=== PATIENT | male | born 1930 | race Caucasian/White ===

== ENCOUNTER → 2016-09-09 | Outpatient (CLI) | payer OTHER, BC ==
[~2016-09-09] MED LIST: ACET-1256 PO; ALUMSUS21 PO; ASTN; ATRINSX INH; ATRINSX NEB; BENZ100C7 PO; BENZ100C84 PO; BISA-16 PO; CALC-20 PO; CLOP1TAB15 PO; CLR10 PO; DIGO0.1219 PO; DXY100 PO; FINA5TAB PO; FLUN0.02 NAE; GFNSR600 PO; GUAI1TAB75 PO; HYT/2 PO; LCTX PO; LEVA1.255 INH; LEVA1.255 NEB; LEVA45AE INH; LVQ500 PO; MISCTAB29 PO; MONT1TAB3 PO; MULT-506 PO; OXGN; PANT40TA PO; PERFLUTREN LIPID MICROSPHERE (DEFINITY) IV ONE; POLY335019 PO; POTA10CA28 PO; PRED10TA PO; PRED20TA PO; PRS5 PO; PRT/20 PO; PRT/40 PO; RANI150T2 PO; SPRIN/30 INH; SYMIN160 INH; TIOTCAP INH; VERA180C3 PO; XPNIN INH; XPNINS125 INH; ZNTT/150 PO
--- NOTE | 2016-09-09 17:16 | ECHOCARDIOGRAM REPORT ---
*NOTICE TO RECEIVING REPUBLICAN AGENCY This information is strictly Confidential and protected under [place] law. [place] law prohibits you from making any further disclosure of this information unless further disclosure is expressly permitted by the written consent of the person to whom it pertains or is authorized by law. A general authorization for the release of medical or other information is not sufficient for this purpose. Hospital accepts no responsibility if the information is made available to any other person, INCLUDING THE PATIENT. Interpretation Summary * Name: HAYLEY HOLLOWAY Study Date: 09/09/2016 01:57 PM BP: 130/81 mmHg * Patient Location: [facility] HR: 95 * : 1930 (M/d/yyyy) Gender: Male Height: 76 in * Age: 85 yrs Ethnicity: CA Weight: 216 lb * Ordering Physician: Dashawn Martinez * Performed By: Brynn Schwab * * Reason For Study: HYPOXIA * BSA: 2.3 m2 * -- Conclusions -- * 1. Normal LV size, mild concentric LVH. * 2. Normal LV systolic function. LVEF 60-65%. Abnormal septal motion consistent with conduction abnormality. * 3. Normal RV size and function. * 4. Mild aortic sclerosis without stenosis. * 5. Compared with prior study on 11/07/2015: No significant changes. Procedure Details * A complete two-dimensional transthoracic echocardiogram was performed (2D, M-mode, Doppler and color flow Doppler). * The study was technically difficult. * There were technical limitations due to patient'sPoor acoustic windows secondary to severe lung disease. * A contrast injection of Definity was performed to improve assessment of LV function. * Contrast was injected into an intravenous site in the left arm. * One vial of Definity ultrasound contrast was diluted in normal saline to a total volume of 10 ml. A total of '3' ml of solution was administered during imaging. * Lot # [id number] of Definity utilized for procedure. * Expiration date 02/22. * The attending nurse who injected the contrast agent was DESHAWN CHRISTOPHER RN. Left Ventricle * The left ventricle is grossly normal size. * There is mild concentric left ventricular hypertrophy. * Ejection Fraction = 60-65%. * Septal motion is consistent with conduction abnormality. Right Ventricle * The right ventricle is grossly normal size. * The right ventricular systolic function is normal as assessed by tricuspid annular plane systolic excursion (TAPSE) (normal >1.5 cm). Atria * The left atrial size is normal. * Right atrial size is normal. Mitral Valve * The mitral valve is grossly normal. * There is no mitral valve stenosis. * There is trace mitral regurgitation. Tricuspid Valve * The tricuspid valve is not well visualized. * There is no tricuspid stenosis. * No tricuspid regurgitation. Aortic Valve * Aortic valve sclerosis mild, without significant aortic valvular stenosis. * No hemodynamically significant valvular aortic stenosis. * There is no significant aortic regurgitation. Pulmonic Valve * The pulmonic valve is not well visualized. Great Vessels * The aortic root and proximal ascending aorta are normal sized. Pericardium/Pleural * There is no pericardial effusion. Great Vessels * IVC > 2.1 cm, > 50% change with respiration. Estimated RA 8mmHg MMode 2D Measurements and Calculations IVSd 1.4 cm IVSs 1.7 cm LVIDd 4.1 cm LVIDs 2.4 cm LVPWd 1.3 cm LVPWs 1.8 cm IVS/LVPW 1.1 FS 41.3 % EDV(Teich) 74.5 ml ESV(Teich) 20.4 ml EF(Teich) 72.6 % EDV(cubed) 69.3 ml ESV(cubed) 14.0 ml EF(cubed) 79.8 % % IVS thick 21.8 % % LVPW thick 38.9 % LV mass(C)d 200.2 grams LV mass(C)dI 87.5 grams/m\S\2 LV mass(C)s 156.5 grams LV mass(C)sI 68.4 grams/m\S\2 SV(Teich) 54.1 ml SI(Teich) 23.6 ml/m\S\2 SV(cubed) 55.3 ml SI(cubed) 24.1 ml/m\S\2 ACS 1.0 cm asc Aorta Diam 3.2 cm LVOT diam 2.0 cm LVOT area 3.3 cm\S\2 LVAd ap4 41.6 cm\S\2 LVLd ap4 9.0 cm EDV(MOD-sp4) 155.2 ml EDV(sp4-el) 162.9 ml LVAs ap4 19.3 cm\S\2 LVLs ap4 7.4 cm ESV(MOD-sp4) 40.1 ml ESV(sp4-el) 42.4 ml EF(MOD-sp4) 74.2 % EF(sp4-el) 74.0 % LVAd ap2 38.8 cm\S\2 LVLd ap2 9.6 cm EDV(MOD-sp2) 126.0 ml EDV(sp2-el) 133.1 ml LVAs ap2 15.6 cm\S\2 LVLs ap2 6.7 cm ESV(MOD-sp2) 29.5 ml ESV(sp2-el) 30.9 ml EF(MOD-sp2) 76.6 % EF(sp2-el) 76.8 % LVLd %diff 6.2 % EDV(MOD-bp) 143.3 ml LVLs %diff -11.43 % ESV(MOD-bp) 36.3 ml EF(MOD-bp) 74.7 % SV(MOD-sp4) 115.1 ml SI(MOD-sp4) 50.3 ml/m\S\2 SV(MOD-sp2) 96.5 ml SI(MOD-sp2) 42.2 ml/m\S\2 SV(MOD-bp) 107.0 ml SI(MOD-bp) 46.7 ml/m\S\2 SV(sp4-el) 120.5 ml SI(sp4-el) 52.6 ml/m\S\2 SV(sp2-el) 102.3 ml SI(sp2-el) 44.7 ml/m\S\2 Doppler Measurements and Calculations MV E max viktoria 114.6 cm/sec MV dec time 0.18 sec Ao V2 max 198.5 cm/sec Ao max PG 15.8 mmHg Ao max PG (full) 7.9 mmHg Ao V2 mean 134.7 cm/sec Ao mean PG 8.7 mmHg Ao mean PG (full) 5.6 mmHg Ao V2 VTI 42.4 cm DESTINY(I,A) 1.9 cm\S\2 DESTINY(I,D) 1.9 cm\S\2 DESTINY(V,A) 2.3 cm\S\2 DESTINY(V,D) 2.3 cm\S\2 LV V1 max PG 7.9 mmHg LV V1 mean PG 3.1 mmHg LV V1 max 140.7 cm/sec LV V1 mean 77.2 cm/sec LV V1 VTI 25.0 cm MR max viktoria 273.3 cm/sec MR max PG 29.9 mmHg SV(LVOT) 81.7 ml SI(LVOT) 35.7 ml/m\S\2 PA V2 max 106.2 cm/sec PA max PG 4.5 mmHg
== END | disposition home or self-care (01) ==
LOC: C.CPL 12:39
PROVIDERS: ATTEND Internal Medicine Critical Care Medicine
DX: R09.02 Hypoxemia (principal); I70.0 Atherosclerosis of aorta

== ENCOUNTER → 2016-09-11 | Outpatient (CLI) | payer OTHER, BC ==
[~2016-09-11] MED LIST changes: -PERFLUTREN LIPID MICROSPHERE (DEFINITY) IV ONE
--- NOTE | 2016-09-11 11:44 | DIAGNOSTIC IMAGING REPORT ---
CHEST 2 VIEWS ROUTINE CLINICAL HISTORY: PNEUMONIA COMPARISON STUDY: 07/14/2016 FINDINGS: There is evidence for pulmonary emphysema. There are surgical clips the right axillary region. There is a left subclavian dual-chamber central venous pacemaker. There is persistent interstitial thickening. The previously identified right apical opacity is no longer visualized. No pleural effusions are visualized.[ IMPRESSION: 1. Emphysema 2. Stable interstitial thickening 3. No evidence of acute parenchymal consolidation 4. The previously queried right apical opacity is not visualized the current study Electronically signed by: Myles Carbone M.D. 09/11/2016 11:42 AM
== END | disposition home or self-care (01) ==
LOC: C.RADBBURG 10:35
PROVIDERS: ATTEND Internal Medicine Pulmonary Disease
DX: J18.9 Pneumonia, unspecified organism (principal)

== ENCOUNTER 2016-10-03 18:15 | Emergency (ER) | payer OTHER, BC ==
[~2016-10-03] VITALS: Ht 195.6 cm; Wt 100.3 kg
[~2016-10-03 18:15] MED LIST changes: -ACET-1256 PO; -ALUMSUS21 PO; -ASTN; -ATRINSX NEB; -BENZ100C84 PO; -BISA-16 PO; -CALC-20 PO; -CLOP1TAB15 PO; -CLR10 PO; -DIGO0.1219 PO; -FINA5TAB PO; -GUAI1TAB75 PO; -HYT/2 PO; -LCTX PO; -LEVA1.255 NEB; -LEVA45AE INH; -LVQ500 PO; -MISCTAB29 PO; -MONT1TAB3 PO; -MULT-506 PO; -OXGN; -POLY335019 PO; -POTA10CA28 PO; -PRED10TA PO; -PRED20TA PO; -PRT/20 PO; -PRT/40 PO; -RANI150T2 PO; -SPRIN/30 INH; -SYMIN160 INH; -VERA180C3 PO; -XPNINS125 INH
[2016-10-03 18:21] VITALS: TEMP 36.6; Ht 195.6 cm; Wt 100.3 kg
[2016-10-03] MEDS ORDERED: OXYMETAZOLINE HCL 0.05% NA SPR 15 ML BTL ONE (18:32)
[2016-10-03] MEDS ORDERED: METHYLPREDNISOLONE 125 MG VIAL IV STA (18:35)
--- NOTE | 2016-10-03 18:37 | EMERGENCY ROOM VISIT NOTE ---
History Report prepared by Tina: Dharmesh Sampson Under the Supervision of: Dr. Bj Baird M.D. First contact with patient: 18:25 Chief Complaint: CONGESTION Stated Complaint: COUGH, CLOGGED NOSE CANT BREATHE History of Present Illness The patient is an 85 year old male who presents to the Emergency Room with complaints of persistent nasal congestion that started this morning. He says he had pneumonia back in July, and ever since then he has been using 4 liters of oxygen at home. The patient was using it 24 hours a day until a few weeks ago. He is now only on the oxygen at night. The patient has also been using nebulizer treatments daily. He has been off of Prednisone for 2 weeks. This morning, the patient started getting congested, and he says his nose "swelled shut tight" so that the oxygen could not get through. He also has a bit of a cough. The patient has asthma, and takes daily medications for that. Source of History: patient Onset: This morning Position: nose (nasal congestion) Timing: other (persistent) Associated Symptoms: + cough Note: Associated symptoms: Nose "swelled shut tight". Review of Systems See HPI for pertinent positives & negatives. A total of 10 systems reviewed and were otherwise negative. Past Medical & Surgical Medical Problems: (1) Asthma, moderate persistent (2) Benign prostatic hyperplasia (3) BPH (benign prostatic hypertrophy) (4) CKD (chronic kidney disease) stage 3, GFR 30-59 ml/min (5) GERD (gastroesophageal reflux disease) (6) Heart block (7) Irritable Bowel Syndrome (8) Pacemaker (9) Paroxysmal a-fib (10) PMR (polymyalgia rheumatica) (11) Respiratory failure, acute (12) Transient ischemic attack Surgical Problems: (1) H/O nasal polypectomy (2) S/P cholecystectomy (3) Status post surgical removal of malignant neoplasm of skin Family History Cancer Social History Smoking Status: Never Smoker Alcohol Use: none Drug Use: none Marital Status: Housing Status: lives with family Occupation Status: retired Current/Historical Medications Scheduled Budesonide/Formoterol Fumarate (Symbicort 160/4.5 Inhaler), 2 PUFFS INH BID Calcium Carbonate-Vitamin D (Calcium 600 + D), 1 TAB PO BID Clopidogrel (Plavix), 75 MG PO DAILY Finasteride (Proscar), 5 MG PO DAILY Flunisolide (Nasal) (Flunisolide), 2 SPRY MARVIN BID Loratadine (Claritin), 10 MG PO DAILY Misc Natural Products (Osteo Bi-Flex Advanced Tr), 1 TAB PO BID Montelukast Sodium (Singulair), 10 MG PO QPM Multivitamin (Multivitamin), 1 TAB PO DAILY Pantoprazole (Protonix), 40 MG PO BID Potassium Chloride (Micro-K Ext Rel), 10 MEQ PO DAILY Prednisone (Prednisone), 40 MG PO DAILY Terazosin Hcl (Hytrin), 2 MG PO HS Tiotropium Meadow (Spiriva Handihaler), 1 CAP INH DAILY Verapamil Hcl (Verapamil Hcl Sr), 180 MG PO DAILY Scheduled PRN Acetaminophen (Tylenol), 1,000 MG PO Q4 PRN for Pain Aluminum Hydroxide-Mag Carb (Gaviscon), 5 ML PO TID PRN for ACID REFLUX Benzonatate (Tessalon Perles), 100 MG PO TID PRN for Cough Ipratropium Meadow (Atrovent 0.02% Soln), 2.5 ML INH TID PRN for SOB/Wheezing Levalbuterol (Levalbuterol HCl), 1.25 MG INH Q6 PRN for SOB/Wheezing Levalbuterol Tartrate (Levalbuterol Tartrate Hfa), 2 PUFF INH TID PRN for SOB/ Wheezing Levalbuterol Tartrate (Levalbuterol Tartrate Hfa), 2 PUFF INH Q8 PRN for Wheezing Polyethylene Glycol 3350 (Miralax), 17 GM PO DAILY PRN for Constipation Allergies Coded Allergies: Aspirin (Verified Allergy, Severe, TIGHTNESS IN CHEST, 05/21/16) NSAIDs (Verified Allergy, Severe, TIGHTNESS IN THE CHEST, 05/21/16) Rofecoxib (Verified Allergy, Severe, TIGHTNESS IN CHEST, 05/21/16) Physical Exam Vital Signs Date Time Temp Pulse Resp B/P Pulse Ox O2 Delivery O2 Flow Rate FiO2 10/03/16 20:45 74 24 125/76 96 10/03/16 18:54 94 Nasal Cannula 4.0 10/03/16 18:29 93 Nasal Cannula 4.0 10/03/16 18:21 36.6 72 22 127/72 89 Nasal Cannula 4.0 Physical Exam CONSTITUTIONAL: No acute distress on 4 liters nasal cannula. HEENT: No icterus, moist mucous membranes NECK: No meningismus, trachea is midline. CARDIOVASCULAR: Regular rate, normal perfusion RESPIRATORY: Moderate wheezes throughout. GASTROINTESTINAL: Non-tender GENITOURINARY: No flank tenderness MUSCULOSKELETAL: Full range of motion NEUROLOGIC: No acute gross focal deficits. PSYCHIATRIC: Normal affect SKIN: Normal for ethnicity. Medical Decision & Procedures ER Provider Diagnostic Interpretation: X-ray results as stated below per interpretation by me and the radiologist. CHEST ONE VIEW PORTABLE CLINICAL HISTORY: wheezing, nasal congestion COMPARISON STUDY: 09/11/2016 FINDINGS: The heart remains mildly enlarged. There is a left subclavian dual-chamber central venous pacemaker present. There are surgical clips in the right axillary region. There are diffuse bilateral interstitial opacities, similar to the prior study. There is no significant pleural fluid.[ IMPRESSION: Diffuse bilateral pulmonary interstitial opacities similar to the preceding study. Underlying chronic interstitial lung disease is suspected. Electronically signed by: Myles Carbone M.D. 10/03/2016 7:09 PM Dictated Date/Time: 10/03/2016 7:07 PM Laboratory Results 10/03/16 18:45 Red Blood Count 4.44, Mean Corpuscular Volume 89.9, Mean Corpuscular Hemoglobin 30.9, Mean Corpuscular Hemoglobin Concent 34.3, Mean Platelet Volume 9.9, Neutrophils (%) (Auto) 45.0, Lymphocytes (%) (Auto) 32.5, Monocytes (%) (Auto) 11.2, Eosinophils (%) (Auto) 10.7, Basophils (%) (Auto) 0.3, Neutrophils # (Auto ) 2.82, Lymphocytes # (Auto) 2.04, Monocytes # (Auto) 0.70, Eosinophils # (Auto ) 0.67, Basophils # (Auto) 0.02 10/03/16 18:45 Test 10/03/16 18:41 10/03/16 18:45 Influenza Type A Antigen Neg for Influ A (NEG) Influenza Type B Antigen Neg for Influ B (NEG) White Blood Count 6.27 K/uL (4.8-10.8) Red Blood Count 4.44 M/uL (4.7-6.1) Hemoglobin 13.7 g/dL (14.0-18.0) Hematocrit 39.9 % (42-52) Mean Corpuscular Volume 89.9 fL (80-100) Mean Corpuscular Hemoglobin 30.9 pg (25-34) Mean Corpuscular Hemoglobin Concent 34.3 g/dl (32-36) Platelet Count 178 K/uL (130-400) Mean Platelet Volume 9.9 fL (7.4-10.4) Neutrophils (%) (Auto) 45.0 % Lymphocytes (%) (Auto) 32.5 % Monocytes (%) (Auto) 11.2 % Eosinophils (%) (Auto) 10.7 % Basophils (%) (Auto) 0.3 % Neutrophils # (Auto) 2.82 K/uL (1.4-6.5) Lymphocytes # (Auto) 2.04 K/uL (1.2-3.4) Monocytes # (Auto) 0.70 K/uL (0.11-0.59) Eosinophils # (Auto) 0.67 K/uL (0-0.5) Basophils # (Auto) 0.02 K/uL (0-0.2) RDW Standard Deviation 45.0 fL (36.4-46.3) RDW Coefficient of Variation 13.6 % (11.5-14.5) Immature Granulocyte % (Auto) 0.3 % Immature Granulocyte # (Auto) 0.02 K/uL (0.00-0.02) Anion Gap 8.0 mmol/L (3-11) Est Creatinine Clear Calc Drug Dose 52.4 ml/min Estimated GFR () 57.7 Estimated GFR (Non- 49.8 BUN/Creatinine Ratio 15.9 (10-20) Calcium Level 8.8 mg/dl (8.5-10.1) Labs reviewed by ED physician. Medications Administered Medications (Trade) Dose Ordered Sig/Akash Route Start Time Stop Time Status Last Admin Dose Admin Oxymetazoline HCl (Afrin 0.05% Nasal Denair) 75 sprays STK-MED ONCE .ROUTE 10/03/16 18:32 10/03/16 18:33 DC 10/03/16 18:37 75 SPRAYS Albuterol/ Ipratropium (Duoneb) 6 ml QIDR INH 10/03/16 20:00 10/03/16 20:56 DC 10/03/16 19:16 6 ML Methylprednisolone Sodium Succinate (Solu-Medrol IV) 125 mg NOW STAT IV 10/03/16 18:35 10/03/16 18:38 DC 10/03/16 18:56 125 MG ECG Indication: other (congestion) Rate (beats per minute): 76 Rhythm: other (AV-paced) Findings: other (nonspecific-ST findings) ED Course 1828: Past medical records reviewed. The patient was evaluated in room A9B. A complete history and physical examination was performed. 1834: Ordered Solu-Medrol IV 125 mg IV. 1956: I reevaluated the patient and he is doing better and wants to go home. The patient verbally expressed understanding and agreement of the treatment plan. The patient will be discharged. 1999: Ordered Duoneb 6 ml INH. Medical Decision Differential diagnoses include: viral syndrome, wheezing. 85-year-old with long-standing history of asthma on 3 L home oxygen after a pneumonia in July 2016 presents to the emergency room with acute onset of upper respiratory nasal congestion over the last day with increasing O2 demand this as he cannot get his oxygen through his nose. Moderate wheezing in all mcknight on exam. Given site Medrol 125 mg IV, albuterol nebulizer treatment and Afrin nasal mist with dramatic improvement in symptomatology. Patient would like to go home on reexamination at 8 PM and has no further complaints. Prescription prednisone written and patient will continue to use the Afrin provided him in the emergency room Impression Primary Impression: Viral upper respiratory illness Scribe Attestation The scribe's documentation has been prepared under my direction and personally reviewed by me in its entirety. I confirm that the note above accurately reflects all work, treatment, procedures, and medical decision making performed by me. Departure Information Dispostion Home / Self-Care Prescriptions Prednisone (Prednisone) 20 Mg Tab 40 MG PO DAILY for 4 Days, #8 TAB Prov: Bj Baird MD 10/03/16 Referrals No Doctor, Assigned (PCP) Dionte Banda D.OLincoln Forms HOME CARE DOCUMENTATION FORM, IMPORTANT VISIT INFORMATION Patient Instructions ED Viral Syndrome, My [facility]
[2016-10-03 18:54] VITALS: O2SAT 94
[2016-10-03 19:01] LABS: BASO % 0.3 %; BASO ABS # 0.02 K/uL (0-0.2); COMPLETE YES; EOS % 10.7 %; HEMATOCRIT 39.9 % (42-52); IG% 0.3 %; LYMPH % 32.5 %; LYMPH ABS # 2.04 K/uL (1.2-3.4); MEAN CELL VOLUME 89.9 fL (80-100); MEAN CORPUSCULAR HEMOGLOBIN 30.9 pg (25-34); MEAN CORPUSCULAR HGB CONC 34.3 g/dl (32-36); MEAN PLATELET VOLUME 9.9 fL (7.4-10.4); MONO % 11.2 %; PLATELET COUNT 178 K/uL (130-400); RED BLOOD COUNT 4.44 M/uL (4.7-6.1); WHITE BLOOD COUNT 6.27 K/uL (4.8-10.8)
--- NOTE | 2016-10-03 19:10 | DIAGNOSTIC IMAGING REPORT ---
CHEST ONE VIEW PORTABLE CLINICAL HISTORY: wheezing, nasal congestion COMPARISON STUDY: 09/11/2016 FINDINGS: The heart remains mildly enlarged. There is a left subclavian dual-chamber central venous pacemaker present. There are surgical clips in the right axillary region. There are diffuse bilateral interstitial opacities, similar to the prior study. There is no significant pleural fluid.[ IMPRESSION: Diffuse bilateral pulmonary interstitial opacities similar to the preceding study. Underlying chronic interstitial lung disease is suspected. Electronically signed by: Myles Carbone M.D. 10/03/2016 7:09 PM Dictated Date/Time: 10/03/2016 7:07 PM
[2016-10-03 19:18] LABS: BUN/CREATININE RATIO 15.9 (10-20); CALCIUM 8.8 mg/dl (8.5-10.1); CREATININE 1.3 mg/dl (0.60-1.40)
[2016-10-03] MEDS ORDERED: XPNINS125 INH (19:38)
[2016-10-03] MEDS ORDERED: LEVA45AE INH (19:38)
[2016-10-03] MEDS ORDERED: BENZ100C84 PO (19:38)
[2016-10-03] MEDS ORDERED: ALBUT/IPRATROP 3MG/0.5MG NEB 3 ML VIAL INH SCH (20:00)
[2016-10-03] MEDS ORDERED: PRED20TA PO (20:03)
[2016-10-03 20:45] VITALS: BP 125/76; PULSE 74; O2SAT 96
[2016-10-23] MEDS ORDERED: LVQ500 PO (15:07)
[2016-12-01] MEDS ORDERED: HYT/2 PO (02:43)
[2016-12-01] MEDS ORDERED: VERA180C3 PO (02:58)
[2016-12-01] MEDS ORDERED: MULT-506 PO (03:13)
[2016-12-01] MEDS ORDERED: POLY335019 PO (10:29)
[2016-12-01] MEDS ORDERED: POTA10CA28 PO (10:34)
[2016-12-01] MEDS ORDERED: SYMIN160 INH (10:37)
[2016-12-01] MEDS ORDERED: MONT1TAB3 PO (10:37)
[2016-12-01] MEDS ORDERED: MISCTAB29 PO (10:40)
[2016-12-01] MEDS ORDERED: CALC-20 PO (10:40)
[2016-12-01] MEDS ORDERED: ACET-1256 PO (10:43)
[2016-12-01] MEDS ORDERED: CLOP1TAB15 PO (13:51)
[2016-12-01] MEDS ORDERED: RANI150T2 PO (16:14)
[2016-12-01] MEDS ORDERED: PRT/40 PO (16:14)
[2016-12-01] MEDS ORDERED: ATRINSX NEB (16:26)
[2016-12-01] MEDS ORDERED: LEVA1.255 NEB (16:26)
[2016-12-01] MEDS ORDERED: FINA5TAB PO (18:57)
[2016-12-01] MEDS ORDERED: SPRIN/30 INH (18:57)
[2016-12-01] MEDS ORDERED: LEVA45AE INH (18:58)
[2016-12-01] MEDS ORDERED: ALUMSUS21 PO (19:38)
[2016-12-03] MEDS ORDERED: LVQ500 PO (14:42)
[2016-12-03] MEDS ORDERED: PRED10TA PO (14:47)
== END 2016-10-03 20:46 | disposition home or self-care (01) ==
LOC: C.EDB 18:16 → C.EDA 20:46
DX: J06.9 Acute upper respiratory infection, unspecified (principal); J45.909 Unspecified asthma, uncomplicated; K21.9 Gastro-esophageal reflux disease without esophagitis; N18.3 Chronic kidney disease, stage 3 (moderate); I45.9 Conduction disorder, unspecified; K58.9 Irritable bowel syndrome, unspecified; Z95.0 Presence of cardiac pacemaker; Z86.73 Personal history of transient ischemic attack (TIA), and cerebral infarction without residual deficits

== ENCOUNTER → 2016-10-19 | Outpatient (CLI) | payer OTHER, BC ==
[~2016-10-19] MED LIST changes: +ACET-1256 PO; +ALUMSUS21 PO; +ASTN; +ATRINSX NEB; +BENZ100C84 PO; +BISA-16 PO; +CALC-20 PO; +CLOP1TAB15 PO; +CLR10 PO; +DIGO0.1219 PO; +FINA5TAB PO; -GFNSR600 PO; +GUAI1TAB75 PO; +HYT/2 PO; +LCTX PO; -LEVA1.255 INH; +LEVA1.255 NEB; +LEVA45AE INH; +LVQ500 PO; +MISCTAB29 PO; +MONT1TAB3 PO; +MULT-506 PO; +OXGN; +POLY335019 PO; +POTA10CA28 PO; +PRED10TA PO; +PRED20TA PO; -PRS5 PO; +PRT/20 PO; +PRT/40 PO; +RANI150T2 PO; +SPRIN/30 INH; +SYMIN160 INH; -TIOTCAP INH; +VERA180C3 PO; -XPNIN INH; +XPNINS125 INH; -ZNTT/150 PO
--- NOTE | 2016-10-20 02:54 | PAP/PSG TECHNICIAN REPORT ---
[facility] Engineer Specialist Polysomnogram Report Study name: None Report date: 10/20/2016 Study date: 10/19/2016 Referring Physician: Letty Arce PA-C, PA-C Name: HAYLEY HOLLOWAY Interpreting Physician: Phani Jeffers M.D. Date of : 1930 Engineer Specialist: Keyur Mccarty RPS. Sex: Male Age: 85 StudyType: PSG Weight: 217 lbs Height: 85 years, Height 6' 2" BMI: 27.86 Medications: PREDNISONE 10 MG, AZELASTINE HCL, SINGULAIR 10 MG, IPRATROPIUM BROMIDE, LEVALBUTEROL HCL 1.25 MG, XOPENEX HFA 45 MCG.ACT, FINASTERIDE 5 MG, HYTRIN, PLAVIX 75 MG, CALCIUM, FLUNISOLIDE 25 MCG/ACT, LORATADINE 10 MG, PROTONIX 40 MG, RANITIDINE HCL 150 MG, SPIRIVA HANDIHALER 18 MCG Patient History PATIENT HAS HISTORY OF BRONCHIECTASIS, ATRIAL FIBRILLATION, ASTHMA AND GERD. HE GENERALLY FEELS TIRED DURING THE DAY. HE WAS ADMITTED TO THE HOSPITAL IN JULY OF 2016 FOR HYPOXIC EXACERBATION COPD AND RIGHT SIDED PNEUMONIA. IN AUGUST, HE HAD INCREASED CHEST CONGESTION, HYPOXIA AND DYSPNEA. HE USUALLY WEARS OXYGEN AT NIGHT TIME. HE IS HERE TODAY FOR AN EVALUATION OF MARU. ESS = 7 RM 7 Parameters Monitored NPSG: E1-M2, E2-M1, Fp1-M2, Fp2-M1, F3-M2, F4-M2, F4-M1, C3-M2, C4-M2, C4-M1, O1-M2, O2-M2, O2-M1, T3-M2, T4-M1, P3-M2, P4-M1, CHIN1, CHIN2, HR, EKG, Legs, PFLOW, SNOR, FLOW, CFLOW, Tidal Volume, THOR, ABDO, SpO2, PLTH, CPRESS, ETCO2 Wave, ETCO2, pH Sleep Architecture Sleep Stages Time at Lights Off 10:41:10 PM STAGES Time (min.) TST (%) Time at Lights On 12:03:40 AM Wake 47.5 -- Total Recording Time (TRT) 83.00 min. N1 16.0 46 Total Sleep Period (TSP) 51.5 min. N2 19.0 54 Total Sleep Time (TST) 35.0min. N3 0.0 0 Awake Time 48.0 min. REM 0.0 0 Wake after Sleep Onset 31.0 min. Sleep Efficiency (SE) 42 % Sleep Onset Latency (CHARLA) 16.5 min. Number of Stage 1 Shifts None Awakenings 3 Stage Changes 20 Number of REM periods N/A REM 0.0 0 REM Latency NONE min. NREM 35.0 100 Body Position Analysis Supine Right Left Side Prone Vertical Total Sleep Time (min.) 82.5 0.0 0.0 0.00 0.0 0.0 Total Sleep Time (%) 100% 0% 0% 0 0% N/A% Total Sleep Time REM (min.) 0.0 0.0 0.0 None 0.0 0.0 Total Sleep Time NREM (min.) 35.0 0.0 0.0 None 0.0 0.0 Intermittent Wake (min.) 47.5 0.0 0.0 None 0.0 0.0 Total Sleep Period (%) 100% None None None None None Arousals Myoclonus (PLM) * Events Count Index Events Count Index Spontaneous 9 15 Events Awake (PLMW) 42 53.1 Respiratory 5 10.3 Events Asleep w/ Arousal (PLMA) 1 1.7 PLM 1 2 Events Asleep w/o Arousal (PLMS) 14 24.0 Snoring 0 0 Total Asleep 15 25.7 Total 15 26 Total 57 41 Respiratory Analysis * CA OA MA CH H RERA Total Count 50 0 0 0 5 0 55 Index 85.7 0.0 0.0 0 8.6 0 94.3 Mean Duration 13.9 0.0 0.0 0.00 19.4 0.0 14.4 Longest Duration 21.5 0.0 0.0 0.00 0.0 0.0 22.1 Respiratory Event Summary Total Supine ~Supine Right Left Prone REM NREM Apneas Count 50 50 N/A N/A N/A N/A N/A 50 Index 85.7 86 N/A N/A N/A N/A N/A 86 Hypopneas (4% Desat) Count 5 5 N/A N/A N/A N/A N/A 5 Index 8.6 8.6 N/A N/A N/A N/A N/A 8.6 Apneas & All Hypopneas Count 55 55 N/A N/A N/A N/A N/A 55 Index 94.3 94 N/A N/A N/A N/A N/A 94.3 Respiratory Events (Senior Ui Developer+All Hyp+RERA) Count 55 55 N/A N/A N/A N/A N/A 55 Index 94.3 94 N/A N/A N/A N/A N/A 94.3 Respiratory Related Arousal Count 5 55 N/A N/A N/A N/A N/A 6 Index 10.3 10 N/A N/A N/A N/A N/A 10 Snoring Analysis Supine Right Left Prone REM NREM Total Snore duration 0.8 min Snores count 43 N/A N/A N/A N/A 43 43 Snore mean duration 1.1 Sec Snores index 74 N/A N/A N/A N/A 73.7 73.7 TST with snoring (%) 2.3% Desaturation Event Summary: Minimum %SpO2 Event Count Mean/Min/Max Duration(sec.) Desaturation Index % Time In Bed > 90 36 24.3 / 9.5 / 58.8 33.0 84.6 86 - 90 1 28.3 / 28.3 / 28.3 5.1 15.2 81 - 85 0 N/A 0.0 0.1 76 - 80 0 N/A 0.0 0.0 71 - 75 0 N/A 0.0 0.0 66 - 70 0 N/A 0.0 0.0 61 - 65 0 N/A 0.0 0.0 56 - 60 0 N/A 0.0 0.0 51 - 55 0 N/A 0.0 0.0 < 50 0 N/A 0.0 0.0 Total REM NREM Awake <50% 0.0 min. 0.0 min. 0.0 min. 0.0 min. 51 - 60% 0.0 min. 0.0 min. 0.0 min. 0.0 min. 61 - 70% 0.0 min. 0.0 min. 0.0 min. 0.0 min. 71 - 80% 0.0 min. 0.0 min. 0.0 min. 0.0 min. 81 - 90% 11.9 min. 0.0 min. 3.7 min. 8.1 min. 91 - 100% 65.5 min. 0.0 min. 31.2 min. 34.2 min. Average 92 0 92 92 Minimum SpO2 80 N/A 88 80 Desaturation Event Index 26.2 0.0 39.4 16.4 # Desat. Events below 89% 4 N/A 2 2 Time(%) with Saturation below 89% 2.0 0.0 0.6 1.4 Time(min.) with Saturation below 89% 1.5 0.0 0.5 1.1 Time (mins) REM (mins) NREM (mins) % of TST SpO2 Below 90% 13 N/A N13 3.5 SpO2 Below 88% 1 0 0 0 Heart Rate Analysis Min (bpm) Max (bpm) Average (bpm) Awake 36 161 80 NREM 51 112 80 REM N/A N/A N/A Overall 51 112 80 Supplemental O2 Values Minimum O2 level: None Value Start Time End Time Engineer Specialist Comments Mr. Holloway slept in the supine position. Irregular cardiac arrhythmia with PVC's noted. Leg movements noted. No bruxism noted. Snoring was noted and scored as a 2 on a scale of 1 through 5. (0=no snoring, 5=snoring loud enough to be heard through a closed door or down the [address]) Mr. Holloway awoke to use the restroom 0 times during the night. Mr. Holloway stated I did not sleep as well as I do when I am in my own bed. Around 10-10:30 pm, Mr. Holloway started to feel nauseous and told me he threw up a little on the bathroom floor and he cleaned it up the best that he could. I asked him if he was ok to start the study and he said thought he was. Shortly into the study, the patient threw up again. I told the patient that it will be difficult to get an accurate study if he is sick and continues to throw up. The patient wanted to continue with the test because he didn't want to have to come back again. I told him if he doesn't feel better soon or throws up again then I think we should strongly consider calling his son to come pick him up. His son was staying nearby and he dropped him off for the test. The patient did throw up again for a third time and we both agreed that it would be best to call his son to come pick him up. When his son arrived, Mr. Holloway felt very fatigued and was not able to move well. Mr. Holloway suggested that I call the ambulance so that the hospital could give him something for his stomach. His son felt that the ambulance would be more equipped to handle his father. Mr. Holloway thought he felt this way because he ate a microwave dinner that was Citizen [place] and didn't realize it. I called the ambulance and described Mr. Holloway's symptoms and they arrived in about 15 minutes. Mr. Holloway was throwing up, was very cold, had a continuous cough and fatigued. Mr. Holloway did appear to have an irregular heart rhythm but the patient said he didn't feel any pain in the chest or anywhere. He does have history of atrial fibrillation. The final report will be interpreted and signed by a sleep physician. The completed physician report will then be placed in the patient medical record. Therapy (cm H2O) 0 TIB (min.) 82.5 TST (min.) 35.0 Sleep Onset (min.) 16.5 REM Onset From Sleep (min.) NONE Sleep Efficiency % 42 Wakefulness (%) 58 Wakefulness (min.) 48.0 NREM 1 (%) 46 NREM 1 (min.) 16.0 NREM 2 (%) 54 NREM 2 (min.) 19.0 NREM 3 (%) 0 NREM 3 (min.) 0.0 REM (%) 0 REM (min.) 0.0 # Arousals 15 Arousal Index 26 # Snore 43 Snore Index 73.7 AHI 94.3 AHI Supine 94 AHI Non-Supine N/A NREM AHI 94.3 REM AHI N/A RDI 94.3 # Obstructive Apnea 0 # Central Apnea 50 # Mixed Apnea 0 # Hypopneas 5 RERAs 0 Total Respiratory Events 56 Time Below SpO2 89% (min.) 0.5 Mean NREM SpO2 (%) 92 Mean REM SpO2 (%) N/A Mean Sleep SpO2 (%) 92 Min NREM SpO2 (%) 88 Min REM SpO2 (%) N/A Position Supine (min.) 82.5 Position Non-supine (min.) 0.0 LM Index Sleep 25.7 LM Index NREM 25.7 LM Index REM N/A Mean Heart Rate (bpm) 80 Min Heart Rate (bpm) 51
--- NOTE | 2016-10-22 08:56 | POLYSOMNOGRAPH REPORT ---
CLINICAL DATA: 85-year-old male with BMI of 27.9 referred by Letty Arce PA-C, Dr. Martinez and Dr. Littlejohn. He has bronchiectasis, atrial fibrillation, asthma and GERD and is tired all the time. He had an admission to the hospital for hypoxic exacerbation of COPD and right-sided pneumonia and he wears oxygen at night. SLEEP ARCHITECTURE: Total recording time was 83 minutes. Total sleep period was 51.5 minutes. Total sleep time was 35 minutes, all non-REM sleep. Sleep latency was 16.5 minutes. REM was not achieved. Sleep efficiency was 42%. Wake after sleep onset was 31 minutes. Sleep consisted of stage N1, 46% and N2 54%. AROUSAL DATA: 15 arousals were recorded for an index of 26 per hour. 5 were due to respiratory events. PLM DATA: Moderately elevated limb movements during sleep were noted. There were 15 limb movements during sleep noted for an index of 25.7 per hour with arousal index of 1.7 per hour. RESPIRATORY DATA: Severe sleep apnea was documented. The AHI was 94.3. There were 50 central apneic episodes. The longest duration of apnea was 21.5 seconds. There were 5 hypopneic episodes. The mean duration of hypopnea was 19.4 seconds. OXIMETRY DATA: No significant hypoxemia was seen. Oxygen dario was 88% during non-REM sleep. The mean saturation was 92%. EKG: Heart rates ranged from 51-112 beats per minute. Atrial fibrillation was seen. PVCs were noted. FIGHT MANAGER'S COMMENTS: The patient slept in the supine position. Snoring was moderate, rated 2 on a scale of 1-5. At 10:30 p.m. the patient felt nauseated and told the orthodontic technician he threw up on the bathroom floor and cleaned it up himself. He was asked if he felt well enough to start this study and he said that he could. Shortly afterwards, he threw up again and he was told that would be difficult get an accurate study if he was ill and continued to throw up. He wanted to continue on because he did not want to come back. He threw up a third time and everyone agreed that it would be best to call his son to come pick him up. When the son arrived, Mr. Guaman felt very fatigued and was not able to move well. It was felt that the ambulance should be called and he should be taken to the hospital. The patient thought it was due to eating a microwave dinner that was [place]. The ambulance was called, came and picked the patient up. He was nauseated, vomiting, cold, had a continuous cough and was fatigued. IMPRESSION: Very limited sleep study with severe central sleep apnea with an AHI of 94.3 in the setting of COPD and atrial fibrillation. The patient could not complete this study because of severe nausea and vomiting which required transfer to the hospital. RECOMMENDATIONS: Once the patient is stable and feeling better, a repeat sleep study could be considered. It is likely that the patient may need ASV for central sleep apnea due to his cardiac dysfunction and atrial fibrillation. Clinical correlation is needed. RICHARD
== END | disposition home or self-care (01) ==
LOC: C.NEUR 20:00
PROVIDERS: ATTEND Internal Medicine Pulmonary Disease
DX: G47.31 Primary central sleep apnea (principal); J44.9 Chronic obstructive pulmonary disease, unspecified; I48.91 Unspecified atrial fibrillation

== ENCOUNTER 2016-10-20 01:14 | Observation (INO) | payer OTHER, BC ==
[2016-10-20] VITALS (10 sets, daily range): BP systolic 96–133; BP diastolic 57–69; PULSE 60–87; TEMP 37.1–37.5; O2SAT 91–97; Ht 195.6 cm; Wt 98.6 kg
[~2016-10-20] VITALS: Ht 195.6 cm; Wt 98.6 kg
[~2016-10-20 01:14] MED LIST changes: -ACET-1256 PO; -ALUMSUS21 PO; -ASTN; -ATRINSX NEB; -BENZ100C7 PO; -BISA-16 PO; -CALC-20 PO; -CLOP1TAB15 PO; -CLR10 PO; -DIGO0.1219 PO; -DXY100 PO; -FINA5TAB PO; -GUAI1TAB75 PO; -HYT/2 PO; -LCTX PO; -LEVA1.255 NEB; -LVQ500 PO; -MISCTAB29 PO; -MONT1TAB3 PO; -MULT-506 PO; -OXGN; -POLY335019 PO; -POTA10CA28 PO; -PRED10TA PO; -PRED20TA PO; -PRT/20 PO; -PRT/40 PO; -RANI150T2 PO; -SPRIN/30 INH; -SYMIN160 INH; -VERA180C3 PO
[2016-10-20] MEDS ORDERED: PROMETHAZINE HCL INJ 25 MG in SODIUM CHLORIDE 0.9% 50ML 50 ML IV STA (01:24)
[2016-10-20] MEDS ORDERED: LORAZEPAM 2 MG/ML 1 ML VIAL IV STA (01:24)
[2016-10-20] MEDS ORDERED: SODIUM CHLORIDE 0.9% 500ML 500 ML IV STA (01:24)
--- NOTE | 2016-10-20 01:43 | EMERGENCY ROOM VISIT NOTE ---
History Report prepared by Tina: Sebastian Siegel Under the Supervision of: Dr. Dre Segura M.D. First contact with patient: 01:17 Chief Complaint: ILLNESS Stated Complaint: NAUSEA/VOMITING/ABDOMINAL CRAMPING History of Present Illness The patient is an 85 year old male who presents to the Emergency Room with complaints of persistent vomiting that started a few hours ago. Per patient's son, the patient had spicy english food for lunch and he usually doesn't handle spicy food well. The patient then went to dinner and was doing fine. About 5 hours ago, he left to go to his sleep study. A few hours in, his son got a call from the sleep study that he had multiple episodes of vomiting. The patient also complains of chills and nausea. He was recently sick 2 weeks ago with cold- like symptoms including his sinuses. He still complains of some cough and congestion. He denies pain at this time. Source of History: patient, family Onset: a few hours ago Position: other (GI) Timing: other (persistent) Associated Symptoms: + chills, + cough, + nausea Note: Other associated symptoms: congestion Denies: pain Review of Systems See HPI for pertinent positives & negatives. A total of 10 systems reviewed and were otherwise negative. Past Medical & Surgical Medical Problems: (1) Asthma, moderate persistent (2) Benign prostatic hyperplasia (3) BPH (benign prostatic hypertrophy) (4) CKD (chronic kidney disease) stage 3, GFR 30-59 ml/min (5) GERD (gastroesophageal reflux disease) (6) Heart block (7) Irritable Bowel Syndrome (8) Pacemaker (9) Paroxysmal a-fib (10) PMR (polymyalgia rheumatica) (11) Pneumonia (12) Respiratory failure, acute (13) Transient ischemic attack Surgical Problems: (1) H/O nasal polypectomy (2) S/P cholecystectomy (3) Status post surgical removal of malignant neoplasm of skin Family History Cancer Social History Smoking Status: Never Smoker Alcohol Use: none Drug Use: none Marital Status: Housing Status: lives with family Occupation Status: retired Current/Historical Medications Scheduled Budesonide/Formoterol Fumarate (Symbicort 160/4.5 Inhaler), 2 PUFFS INH BID Calcium Carbonate-Vitamin D (Calcium 600 + D), 1 TAB PO BID Clopidogrel (Plavix), 75 MG PO DAILY Finasteride (Proscar), 5 MG PO DAILY Flunisolide (Nasal) (Flunisolide), 2 SPRY MARVIN BID Loratadine (Claritin), 10 MG PO DAILY Misc Natural Products (Osteo Bi-Flex Advanced Tr), 1 TAB PO BID Montelukast Sodium (Singulair), 10 MG PO QPM Multivitamin (Multivitamin), 1 TAB PO DAILY Potassium Chloride (Micro-K Ext Rel), 10 MEQ PO DAILY Ranitidine HCl (Ranitidine HCl), 150 MG PO BID Terazosin Hcl (Hytrin), 2 MG PO HS Tiotropium Glover (Spiriva Handihaler), 1 CAP INH DAILY Verapamil Hcl (Verapamil Hcl Sr), 180 MG PO DAILY Scheduled PRN Acetaminophen (Tylenol), 1,000 MG PO Q4 PRN for Pain Aluminum Hydroxide-Mag Carb (Gaviscon), 5 ML PO TID PRN for ACID REFLUX Benzonatate (Tessalon Perles), 100 MG PO TID PRN for Cough Ipratropium Glover (Atrovent 0.02% Soln), 2.5 ML INH TID PRN for SOB/Wheezing Levalbuterol (Levalbuterol HCl), 1.25 MG INH Q6 PRN for SOB/Wheezing Levalbuterol Tartrate (Levalbuterol Tartrate Hfa), 2 PUFF INH TID PRN for SOB/ Wheezing Polyethylene Glycol 3350 (Miralax), 17 GM PO DAILY PRN for Constipation Allergies Coded Allergies: Aspirin (Verified Allergy, Severe, TIGHTNESS IN CHEST, 10/20/16) NSAIDs (Verified Allergy, Severe, TIGHTNESS IN THE CHEST, 10/20/16) Rofecoxib (Verified Allergy, Severe, TIGHTNESS IN CHEST, 10/20/16) Physical Exam Vital Signs Date Time Temp Pulse Resp B/P Pulse Ox O2 Delivery O2 Flow Rate FiO2 10/20/16 03:01 106 18 130/73 93 Room Air 10/20/16 02:33 106 18 129/68 95 Room Air 10/20/16 01:53 120 18 137/83 98 10/20/16 01:38 36.9 122 18 141/91 92 Room Air 10/20/16 01:26 125 Physical Exam GENERAL: Patient is nauseous-appearing in moderate distress. Periodically dry heaving HEENT: No acute trauma, normocephalic atraumatic, mucous membranes moist, no nasal congestion, no scleral icterus. NECK: No stridor, no adenopathy, no meningismus, trachea is midline. LUNGS: No dyspnea. Clear to auscultation and equal bilaterally. No wheeze, no rhonchi. HEART: Tachycardic and irregular. ABDOMEN: Soft, nontender, hyperactive bowel sounds, no masses appreciated, no peritonitis. BACK: No midline tenderness, no CVA tenderness EXTREMITIES: Normal motion all extremities, no cyanosis, no edema. NEUROLOGIC: Alert and oriented, no acute motor or sensory deficits, no focal weakness, cranial nerves grossly intact. SKIN: No rash, no jaundice, no diaphoresis. Medical Decision & Procedures ER Provider Diagnostic Interpretation: X ray results are stated below per my interpretation and the radiologist's interpretation. One view chest x-ray: New bilateral infiltrate when compared to previous chest x-ray. No pneumothorax , no effusion, pacemaker wires intact. Laboratory Results 10/20/16 01:45 Red Blood Count 4.83, Mean Corpuscular Volume 91.1, Mean Corpuscular Hemoglobin 30.8, Mean Corpuscular Hemoglobin Concent 33.9, Mean Platelet Volume 9.8, Neutrophils (%) (Auto) 83.6, Lymphocytes (%) (Auto) 5.2, Monocytes (%) (Auto) 8.8, Eosinophils (%) (Auto) 1.8, Basophils (%) (Auto) 0.2, Neutrophils # (Auto) 9.45, Lymphocytes # (Auto) 0.59, Monocytes # (Auto) 1.00, Eosinophils # (Auto) 0.20, Basophils # (Auto) 0.02 10/20/16 01:45 Test 10/20/16 01:45 10/20/16 03:31 White Blood Count 11.30 K/uL (4.8-10.8) Red Blood Count 4.83 M/uL (4.7-6.1) Hemoglobin 14.9 g/dL (14.0-18.0) Hematocrit 44.0 % (42-52) Mean Corpuscular Volume 91.1 fL (80-100) Mean Corpuscular Hemoglobin 30.8 pg (25-34) Mean Corpuscular Hemoglobin Concent 33.9 g/dl (32-36) Platelet Count 178 K/uL (130-400) Mean Platelet Volume 9.8 fL (7.4-10.4) Neutrophils (%) (Auto) 83.6 % Lymphocytes (%) (Auto) 5.2 % Monocytes (%) (Auto) 8.8 % Eosinophils (%) (Auto) 1.8 % Basophils (%) (Auto) 0.2 % Neutrophils # (Auto) 9.45 K/uL (1.4-6.5) Lymphocytes # (Auto) 0.59 K/uL (1.2-3.4) Monocytes # (Auto) 1.00 K/uL (0.11-0.59) Eosinophils # (Auto) 0.20 K/uL (0-0.5) Basophils # (Auto) 0.02 K/uL (0-0.2) RDW Standard Deviation 46.0 fL (36.4-46.3) RDW Coefficient of Variation 13.9 % (11.5-14.5) Immature Granulocyte % (Auto) 0.4 % Immature Granulocyte # (Auto) 0.04 K/uL (0.00-0.02) Anion Gap 12.0 mmol/L (3-11) Est Creatinine Clear Calc Drug Dose 52.4 ml/min Estimated GFR () 57.7 Estimated GFR (Non- 49.8 BUN/Creatinine Ratio 17.1 (10-20) Calcium Level 8.3 mg/dl (8.5-10.1) Total Bilirubin 1.3 mg/dl (0.2-1) Direct Bilirubin 0.3 mg/dl (0-0.2) Aspartate Amino Transf (AST/SGOT) 16 U/L (15-37) Alanine Aminotransferase (ALT/SGPT) 22 U/L (12-78) Alkaline Phosphatase 65 U/L (45-117) Troponin I < 0.015 ng/ml (0-0.045) Total Protein 6.6 gm/dl (6.4-8.2) Albumin 3.4 gm/dl (3.4-5.0) Lipase 157 U/L (73-393) Bedside Lactic Acid Venous 1.87 mmol/L (0.90-1.70) Laboratory results as reviewed by me. Medications Administered Medications (Trade) Dose Ordered Sig/Akash Route Start Time Stop Time Status Last Admin Dose Admin Promethazine HCl/ Sodium Chloride (Phenergan Inj/ Nss 50ml) 51 ml @ 204 mls/hr NOW STAT IV 10/20/16 01:24 10/20/16 01:38 DC 10/20/16 01:48 204 MLS/HR Lorazepam 0.5 mg 0.5 mg NOW STAT IV 10/20/16 01:24 10/20/16 01:26 DC 10/20/16 01:48 0.5 MG Sodium Chloride (Nss 500ml) 500 ml @ 999 mls/hr Q31M STAT IV 10/20/16 01:24 10/20/16 01:54 DC 10/20/16 01:48 999 MLS/HR Piperacillin Sod/ Tazobactam Sod (Zosyn Iv) 3.375 gm NOW STAT IV 10/20/16 02:59 10/20/16 03:00 DC 10/20/16 03:40 3.375 GM ECG Indication: other Rate (beats per minute): 125 Rhythm: atrial fibrillation Findings: nonspecific-ST abn, other (intraventicular block, prolonged QTC, rapid venticular response) ED Course 0114: The patient was evaluated in room A4. A complete history and physical exam was performed. 0124: Ordered NSS 500 ml @ 999 mls/hr IV, Ativan Inj 0.5 mg IV, Promethazine HCl 25 mg/ NSS 51 ml @ 204 mls/hr IV. 0254: At this time, I reevaluated the patient and he was raspier than before, but oxygenating alright. The son agreed with the treatment plan to stay in the hospital. The patient is more somnolent then he was earlier in the night. 0259: Ordered Zosyn Iv 3.375 gm IV. 0302: At this time, I discussed the patient's case with Dr. Reynaga - Hospitalist Deepa and she agreed to accept the patient for further evaluation. Medical Decision Differential: Gastroenteritis, Food Borne, Esophageal Perforation, , Electrolyte Abnormality, Dehydration, Intraabdominal Infection, UTI/ Pyelonephritis, Bowel Obstruction, Biliary Pathology, amongst other pathology entertained. 85 yr old male arrives with severe vomiting and notes diarrhea as well. Suspect food poisoning vs gastroenteritis that is going around area. He has soft, non-tender abdomen. Lung exam is poor and given the increased bilateral infiltrates from previous CXR I suspect he has developed aspiration pneumonia. Labs looks OK currently. Mild hypoxia though uses O2 regularly. With his recent issues with severe lung infections and findings of bilateral infiltrates I feel he should stay and son agrees. Consults Time Called: 256 Consulting Physician: Dr. Reynaga - Hospitalist Deepa Returned Call: [phone] At this time, I discussed the patient's case with Dr. Reynaga and she agreed to accept the patient for further evaluation. Impression Primary Impression: Nausea vomiting and diarrhea Additional Impression: Bilateral pneumonia Scribe Attestation The scribe's documentation has been prepared under my direction and personally reviewed by me in its entirety. I confirm that the note above accurately reflects all work, treatment, procedures, and medical decision making performed by me. Departure Information Dispostion Being Evaluated By Hospitalist Referrals Dionte Banda, D.OLincoln (PCP) Problem Qualifiers Additional Impression: Bilateral pneumonia Pneumonia type: aspiration pneumonia Aspiration pneumonia type: due to vomit Lung location: unspecified part of lung Qualified Codes: J69.0 - Pneumonitis due to inhalation of food and vomit
[2016-10-20 01:56] LABS: BASO % 0.2 %; BASO ABS # 0.02 K/uL (0-0.2); COMPLETE YES; EOS % 1.8 %; IG% 0.4 %; LYMPH % 5.2 %; LYMPH ABS # 0.59 K/uL (1.2-3.4); MEAN CELL VOLUME 91.1 fL (80-100); MEAN CORPUSCULAR HEMOGLOBIN 30.8 pg (25-34); MEAN CORPUSCULAR HGB CONC 33.9 g/dl (32-36); MEAN PLATELET VOLUME 9.8 fL (7.4-10.4); MONO % 8.8 %; NEUT % 83.6 %; PLATELET COUNT 178 K/uL (130-400); RED BLOOD COUNT 4.83 M/uL (4.7-6.1)
[2016-10-20 02:18] LABS: ALT/SGPT 22 U/L (12-78); AST/SGOT 16 U/L (15-37); BLOOD UREA NITROGEN 22 mg/dl (7-18); BUN/CREATININE RATIO 17.1 (10-20); CALCIUM 8.3 mg/dl (8.5-10.1); CARBON DIOXIDE 26 mmol/L (21-32); CHLORIDE 106 mmol/L (98-107); GLUCOSE 109 mg/dl (70-99); POTASSIUM 3.8 mmol/L (3.5-5.1); SODIUM 144 mmol/L (136-145)
[2016-10-20 02:23] LABS: ALKALINE PHOSPHATASE 65 U/L (45-117)
[2016-10-20] MEDS ORDERED: RANI150T2 PO (02:26)
[2016-10-20] MEDS ORDERED: PIPERACILLIN/TAZOBACTAM 3.375 GM/100ML D5W IV STA (02:59)
[2016-10-20] MEDS ORDERED: ALUMINUM/MAGNESIUM/SIMETH (MAALOX MAX) 30 ML UDC PO PRN (03:45)
[2016-10-20] MEDS ORDERED: MAGNESIUM HYDROXIDE SUSP 30 ML UDC PO PRN (03:45)
[2016-10-20] MEDS ORDERED: POLYETHYLENE (MIRALAX) 17 GM PACK PO PRN ×2 (03:45→06:45)
[2016-10-20] MEDS ORDERED: IV FLUIDS COMPLETED PRN (04:30)
--- NOTE | 2016-10-20 05:53 | History and Physical ---
History & Physical Date & Time of Service: Oct 20, 2016 at 05:53 Chief Complaint: Pneumonia Primary Care Physician: Dionte Banda D.OLincoln History of Present Illness Source: patient, hospital records The patient is an 85 year old male who presents to the Emergency Room with complaints of persistent vomiting that started a few hours ago. pt was schedule to have sleep study done today to assess MARU at the study -pt developed severe nausea /vomiting /abdominal pain and diarrhea history is limited as pt was given Phenergan and Ativan in ED remains groggy lab work is unremarkable except for mild leukocytosis WBC 11 K mild dehydration with BUN 22 /Cr 1.3 POC lactic acid 1.8 repeat level after IV hydration 1.3 Past Medical/Surgical History Medical Problems: (1) Asthma, moderate persistent Status: Chronic (2) Benign prostatic hyperplasia Status: Chronic (3) BPH (benign prostatic hypertrophy) Status: Chronic (4) CKD (chronic kidney disease) stage 3, GFR 30-59 ml/min Status: Chronic (5) GERD (gastroesophageal reflux disease) Status: Chronic (6) Heart block Permanent Comment: s/p pacemaker placement Status: Chronic (7) Irritable Bowel Syndrome Status: Chronic (8) Pacemaker Status: Chronic (9) Paroxysmal a-fib Status: Chronic (10) PMR (polymyalgia rheumatica) Status: Chronic (11) Transient ischemic attack Status: Resolved Surgical Problems: (1) H/O nasal polypectomy Permanent Comment: 1970s Status: Chronic (2) S/P cholecystectomy Status: Chronic (3) 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 Status: Chronic Family History Cancer Social History Smoking Status: Never Smoker Drug Use: none Marital Status: Housing status: lives with family Occupational Status: retired Immunizations History of Influenza Vaccine: Yes Influenza Vaccine Date: Jun 22, 2015 History of Tetanus Vaccine?: Yes Tetanus Immunization Date: Jan 04, 2009 History of Pneumococcal: Yes Pneumococcal Date: Apr 07, 2015 History of Hepatitis B Vaccine: No Multi-Drug Resistant Organisms History of MDRO: No Allergies Coded Allergies: Aspirin (Verified Allergy, Severe, TIGHTNESS IN CHEST, 10/20/16) NSAIDs (Verified Allergy, Severe, TIGHTNESS IN THE CHEST, 10/20/16) Rofecoxib (Verified Allergy, Severe, TIGHTNESS IN CHEST, 10/20/16) Home Medications Scheduled Budesonide/Formoterol Fumarate (Symbicort 160/4.5 Inhaler), 2 PUFFS INH BID Calcium Carbonate-Vitamin D (Calcium 600 + D), 1 TAB PO BID Clopidogrel (Plavix), 75 MG PO DAILY Finasteride (Proscar), 5 MG PO DAILY Flunisolide (Nasal) (Flunisolide), 2 SPRY MARVIN BID Loratadine (Claritin), 10 MG PO DAILY Misc Natural Products (Osteo Bi-Flex Advanced Tr), 1 TAB PO BID Montelukast Sodium (Singulair), 10 MG PO QPM Multivitamin (Multivitamin), 1 TAB PO DAILY Potassium Chloride (Micro-K Ext Rel), 10 MEQ PO DAILY Ranitidine HCl (Ranitidine HCl), 150 MG PO BID Terazosin Hcl (Hytrin), 2 MG PO HS Tiotropium Ralls (Spiriva Handihaler), 1 CAP INH DAILY Verapamil Hcl (Verapamil Hcl Sr), 180 MG PO DAILY Scheduled PRN Acetaminophen (Tylenol), 1,000 MG PO Q4 PRN for Pain Aluminum Hydroxide-Mag Carb (Gaviscon), 5 ML PO TID PRN for ACID REFLUX Benzonatate (Tessalon Perles), 100 MG PO TID PRN for Cough Ipratropium [place]alls (Atrovent 0.02% Soln), 2.5 ML INH TID PRN for SOB/Wheezing Levalbuterol (Levalbuterol HCl), 1.25 MG INH Q6 PRN for SOB/Wheezing Levalbuterol Tartrate (Levalbuterol Tartrate Hfa), 2 PUFF INH TID PRN for SOB/ Wheezing Polyethylene Glycol 3350 (Miralax), 17 GM PO DAILY PRN for Constipation Review of Systems Constitutional: + chills, + fatigue, + fever, + weakness Abdomen: + diarrhea, + nausea, + pain, + vomiting Physical Exam Vital Signs Date Time Temp Pulse Resp B/P Pulse Ox O2 Delivery O2 Flow Rate FiO2 10/20/16 04:20 37.2 87 22 133/69 94 Room Air 10/20/16 04:10 88 20 130/72 95 10/20/16 03:01 106 18 130/73 93 Room Air 10/20/16 02:33 106 18 129/68 95 Room Air 10/20/16 01:53 120 18 137/83 98 10/20/16 01:38 36.9 122 18 141/91 92 Room Air 10/20/16 01:26 125 General Appearance: + pertinent finding (groogy , sleeping , wakes up to voice , unable to provide answers ) Head: normocephalic, atraumatic Eyes: sclerae normal Neck: thyroid normal Respiratory/Chest: chest non-tender, lungs clear, normal breath sounds, no respiratory distress Abdomen/GI: non tender, soft Neurologic/Psych: + disoriented Diagnostics Laboratory Results Results Past 24 Hours Test 10/20/16 01:45 10/20/16 03:31 10/20/16 04:50 Range/Units White Blood Count 11.30 4.8-10.8 K/uL Red Blood Count 4.83 4.7-6.1 M/uL Hemoglobin 14.9 14.0-18.0 g/dL Hematocrit 44.0 42-52 % Mean Corpuscular Volume 91.1 80-100 fL Mean Corpuscular Hemoglobin 30.8 25-34 pg Mean Corpuscular Hemoglobin Concent 33.9 32-36 g/dl Platelet Count 178 130-400 K/uL Mean Platelet Volume 9.8 7.4-10.4 fL Neutrophils (%) (Auto) 83.6 % Lymphocytes (%) (Auto) 5.2 % Monocytes (%) (Auto) 8.8 % Eosinophils (%) (Auto) 1.8 % Basophils (%) (Auto) 0.2 % Neutrophils # (Auto) 9.45 1.4-6.5 K/uL Lymphocytes # (Auto) 0.59 1.2-3.4 K/uL Monocytes # (Auto) 1.00 0.11-0.59 K/uL Eosinophils # (Auto) 0.20 0-0.5 K/uL Basophils # (Auto) 0.02 0-0.2 K/uL RDW Standard Deviation 46.0 36.4-46.3 fL RDW Coefficient of Variation 13.9 11.5-14.5 % Immature Granulocyte % (Auto) 0.4 % Immature Granulocyte # (Auto) 0.04 0.00-0.02 K/uL Sodium Level 144 136-145 mmol/L Potassium Level 3.8 3.5-5.1 mmol/L Chloride Level 106 98-107 mmol/L Carbon Dioxide Level 26 21-32 mmol/L Anion Gap 12.0 3-11 mmol/L Blood Urea Nitrogen 22 7-18 mg/dl Creatinine 1.30 0.60-1.40 mg/dl Est Creatinine Clear Calc Drug Dose 52.4 ml/min Estimated GFR () 57.7 Estimated GFR (Non- 49.8 BUN/Creatinine Ratio 17.1 10-20 Random Glucose 109 70-99 mg/dl Calcium Level 8.3 8.5-10.1 mg/dl Total Bilirubin 1.3 0.2-1 mg/dl Direct Bilirubin 0.3 0-0.2 mg/dl Aspartate Amino Transf (AST/SGOT) 16 15-37 U/L Alanine Aminotransferase (ALT/SGPT) 22 12-78 U/L Alkaline Phosphatase 65 45-117 U/L Troponin I < 0.015 0-0.045 ng/ml Total Protein 6.6 6.4-8.2 gm/dl Albumin 3.4 3.4-5.0 gm/dl Lipase 157 73-393 U/L Bedside Lactic Acid Venous 1.87 0.90-1.70 mmol/L Microbiology Results 10/20/16 Blood Culture, Received Pending 10/20/16 Blood Culture, Received Pending Diagnostic Radiology CHEST ONE VIEW PORTABLE CLINICAL HISTORY: Vomiting. COMPARISON STUDY: Chest radiograph October 03, 2016. FINDINGS: A dual lead left subclavian pacemaker and right axillary surgical clips are noted. Lung volumes are diminished. There is no pneumothorax or pleural effusion. Cardiomediastinal silhouette is stable. There is mild diffuse interstitial thickening. IMPRESSION: Mild diffuse interstitial thickening which may reflect pulmonary edema or an infectious process. Impression Assessment and Plan NAUSEA /VOMITING DIARRHEA : possible viral gastroenteritis check stool for C diff has mild leukocytosis of 11 K repeat CBC in AM ordered for Xray of Abdomen may consider CT abdomen /pelvis -if symptom persists after supportive care IV fluids PNEUMONIA : chest xray shows rt basilar infiltrate pneumonia -concern for aspiration empiric Abx with Levaquin repeat Xray in AM ASTHMA /COPD : respiratory status stable cont PRN neb tx /INH scheduled for sleep study last night for MARU was cancelled as pt developed Nausea /vomiting /diarrhea HX OF CHRONIC AFIB ; not on anticoagulation for hx of multiple bleeding episode s/p ablation tx of recurrent flutter cont verapamil pt follows with cardiology Dr Souza HX OF TACHYBRADY SYNDROME ; s/p pacemaker placement CKD STAGE 3 : Cr at baseline cont to follow PRP BPH: cont Proscar FULL CODE DVT PROPHYLAXIS : sub heparin DISPOSITION : PT/OT eval prior to discharge social service consulted for discharge planning Level of Care Telemetry Advanced Directives Existing Living Will: Yes Existing Power of Caterers Helper: Yes Resuscitation Status FULL RESUSCITATION VTE Prophylaxis VTE Risk Assessment Done? Y/N: Yes Risk Level: Moderate Given or contraindicated: Unfractionated heparin SQ
[2016-10-20] MEDS ORDERED: LEVALBUTEROL 1.25MG/3ML NEB INH PRN (06:45)
[2016-10-20] MEDS ORDERED: LEValbuterol HFA 15GM INHALER INH PRN (06:45)
[2016-10-20] MEDS ORDERED: ALBUT/IPRATROP 3MG/0.5MG NEB 3 ML VIAL INH PRN (07:00)
--- NOTE | 2016-10-20 08:12 | DIAGNOSTIC IMAGING REPORT ---
CHEST ONE VIEW PORTABLE CLINICAL HISTORY: Vomiting. COMPARISON STUDY: Chest radiograph October 03, 2016. FINDINGS: A dual lead left subclavian pacemaker and right axillary surgical clips are noted. Lung volumes are diminished. There is no pneumothorax or pleural effusion. Cardiomediastinal silhouette is stable. There is mild diffuse interstitial thickening. IMPRESSION: Mild diffuse interstitial thickening which may reflect pulmonary edema or an infectious process. Electronically signed by: Damion Grigsby M.D. 10/20/2016 8:10 AM Dictated Date/Time: 10/20/2016 8:09 AM
[2016-10-20] MEDS ORDERED: NON-FORMULARY MEDICATION (Misc Natural Products (Osteo Bi-Flex Advanced Tr) 1 TAB) PO SCH (09:00)
[2016-10-20] MEDS ORDERED: FINASTERIDE 5 MG TAB PO SCH (09:00)
[2016-10-20] MEDS: SODIUM CHLORIDE 0.9% 1000ML 1,000 ML IV SCH ×2 (09:02→21:00)
[2016-10-20] MEDS: LEVOFLOXACIN / D5W 500 MG in PREMIXED IN D5W 100 ML IV SCH (09:02)
[2016-10-20] MEDS: HEPARIN SOD 5000 UNIT/0.5 ML CARP SQ SCH ×2 (09:04→21:00)
[2016-10-20 11:57] LABS: INFLUENZA A PCR Neg for Influ A (NEG); INFLUENZA B PCR Neg for Influ B (NEG)
[2016-10-20] MEDS: BUDESONIDE/FORMOTEROL FUMARATE 160/4.5 60 PUFFS/INHALER INH SCH ×2 (12:47→21:15)
[2016-10-20] MEDS: TIOTROPIUM BROMIDE 5 PUFF/90 MCG INH INH SCH (12:47)
[2016-10-20] MEDS: VERAPAMIL HCL 180 MG TABCR PO SCH (12:48)
[2016-10-20] MEDS: MULTIVITAMIN TAB PO SCH (12:48)
[2016-10-20] MEDS: LORATADINE 10 MG TAB PO SCH (12:48)
[2016-10-20] MEDS: CLOPIDOGREL BISULFATE 75 MG TAB PO SCH (12:48)
[2016-10-20] MEDS: CALCIUM 600MG + VIT D 400 IU TAB PO SCH ×2 (12:48→21:15)
[2016-10-20] MEDS: POTASSIUM CHLORIDE 10 MEQ TABCR PO SCH (12:49)
[2016-10-20] MEDS: MONTELUKAST SOD 10 MG TAB PO SCH (21:15)
[2016-10-20] MEDS: ACETAMINOPHEN 325 MG TAB PO PRN (21:18)
[2016-10-21] VITALS (15 sets, daily range): BP systolic 87–120; BP diastolic 50–65; PULSE 51–106; TEMP 36.3–36.9; O2SAT 91–96
[2016-10-21 06:26] LABS: MEAN CELL VOLUME 90.3 fL (80-100); MEAN CORPUSCULAR HEMOGLOBIN 30.6 pg (25-34); MEAN CORPUSCULAR HGB CONC 33.9 g/dl (32-36); MEAN PLATELET VOLUME 9.5 fL (7.4-10.4); PLATELET COUNT 123 K/uL (130-400); RED BLOOD COUNT 4.21 M/uL (4.7-6.1); WHITE BLOOD COUNT 6.47 K/uL (4.8-10.8)
[2016-10-21 07:02] LABS: BUN/CREATININE RATIO 21.7 (10-20); CALCIUM 7.8 mg/dl (8.5-10.1); CREATININE 1.3 mg/dl (0.60-1.40); POTASSIUM 3.5 mmol/L (3.5-5.1)
--- NOTE | 2016-10-21 07:31 | DIAGNOSTIC IMAGING REPORT ---
CHEST ONE VIEW PORTABLE CLINICAL HISTORY: Pneumonia. COMPARISON STUDY: Chest radiograph October 20, 2016. FINDINGS: A dual lead left subclavian pacemaker and right axillary surgical clips are again noted. Mild cardiomegaly is unchanged. There is no pneumothorax. No pleural effusion is present. Mild interstitial thickening persists. IMPRESSION: 1. No significant change in thickening. 2. A few possible hazy bilateral airspace opacities which could reflect an infectious process. No lobar consolidation. Electronically signed by: Damion Grigsby M.D. 10/21/2016 7:30 AM Dictated Date/Time: 10/21/2016 7:28 AM
[2016-10-21] MEDS: BUDESONIDE/FORMOTEROL FUMARATE 160/4.5 60 PUFFS/INHALER INH SCH ×2 (08:21→20:09)
[2016-10-21] MEDS: TIOTROPIUM BROMIDE 5 PUFF/90 MCG INH INH SCH (08:21)
[2016-10-21] MEDS: CALCIUM 600MG + VIT D 400 IU TAB PO SCH ×2 (08:21→20:12)
[2016-10-21] MEDS: LEVOFLOXACIN / D5W 500 MG in PREMIXED IN D5W 100 ML IV SCH (08:21)
[2016-10-21] MEDS: VERAPAMIL HCL 180 MG TABCR PO SCH (08:22)
[2016-10-21] MEDS: POTASSIUM CHLORIDE 10 MEQ TABCR PO SCH (08:22)
[2016-10-21] MEDS: MULTIVITAMIN TAB PO SCH (08:22)
[2016-10-21] MEDS: CLOPIDOGREL BISULFATE 75 MG TAB PO SCH (08:23)
[2016-10-21] MEDS: LORATADINE 10 MG TAB PO SCH (08:23)
[2016-10-21] MEDS: SODIUM CHLORIDE 0.9% 1000ML 1,000 ML IV SCH (08:26)
[2016-10-21] MEDS: HEPARIN SOD 5000 UNIT/0.5 ML CARP SQ SCH ×2 (10:20→20:18)
--- NOTE | 2016-10-21 11:54 | Progress Note ---
Internal Med Progress Note Date of Service: Oct 21, 2016. Provider Documentation: SUBJECTIVE: Patient is awake/alert and is sitting in the chair in no apparent distress. Breathing comfortably and has intermittent dry cough. Remains afebrile. Nausea/vomiting has resolved. Answers my questions well. OBJECTIVE: Vital Signs-as noted below Examination: General Appearance: Alert/Awake and is in no distress. answers questions appropriately. Head: normocephalic, atraumatic Eyes: sclerae normal ENT: Ears, Nose, Throat are normal looking. has hearing aid. Neck: Supple, Midline trachea, thyroid normal Respiratory/Chest: chest non-tender, lungs clear, normal breath sounds, no respiratory distress Abdomen/GI: non tender, soft, Normal bowel sounds present. Neurologic/Psych: Alert/Awake and no gross neurologic deficit Diagnostics - H&P Lab data as noted below. ASSESSMENT & PLAN: Chest X-Ray (10/21/2016) FINDINGS: A dual lead left subclavian pacemaker and right axillary surgical clips are again noted. Mild cardiomegaly is unchanged. There is no pneumothorax. No pleural effusion is present. Mild interstitial thickening persists. IMPRESSION: 1. No significant change in thickening. 2. A few possible hazy bilateral airspace opacities which could reflect an infectious process. No lobar consolidation. Nausea/Vomiting & Diarrhea: Resolved now. Likely viral gastroenteritis -Stool for C diff is pending so far -Continue I/V Fluids and will stop gradually as oral intake improves. Right Sided Pneumonia: Clinically improving and doing very well. -Chest X-ray shows rt basilar infiltrate -Continue Levaquin (Day # 2) for now -Supplemental Oxygen -Influenza screen is negative History Asthma/COPD: Stable. -Continue Bronchodilators -Supplemental oxygen -Scheduled for sleep study for MARU on day of admission & was cancelled as pt developed Nausea /vomiting /diarrhea History Chronic Atrial Fibrillation: HR is stable.Not on anticoagulation for hx of multiple bleeding episode -s/p ablation tx of recurrent flutter -Continue Verapamil -Patient follows with cardiology Dr Souza History Tachy/Kit Syndrome: s/p pacemaker placement CKD Stage III: Creatinine is at baseline. -Monitor GFR -Avoid any Nephrotoxin History BPH: Stable. Continue Proscar Code Status: FULL CODE DVT Prophylaxis: Sq Heparin Disposition: Discharge in 1-2 days as is more clinically stable. PT/OT eval prior to discharge social service consulted for discharge planning Vital Signs: Date Time Temp Pulse Resp B/P Pulse Ox O2 Delivery O2 Flow Rate FiO2 10/21/16 08:19 106 120/56 10/21/16 08:00 95 Room Air 10/21/16 07:50 36.9 76 16 87/50 95 Room Air 10/21/16 04:15 Room Air 10/21/16 03:40 36.5 69 18 103/65 94 Nasal Cannula 2.0 10/21/16 00:02 Room Air 10/20/16 23:57 37.1 77 19 96/60 91 Room Air 10/20/16 20:00 Room Air 10/20/16 19:17 37.2 60 20 106/57 93 Room Air 10/20/16 16:00 94 Room Air 10/20/16 15:20 37.5 81 20 113/60 94 Room Air 10/20/16 15:18 70 16 97 Room Air 10/20/16 12:00 94 Room Air Lab Results: Results Past 24 Hours Test 10/21/16 05:41 Range/Units White Blood Count 6.47 4.8-10.8 K/uL Red Blood Count 4.21 4.7-6.1 M/uL Hemoglobin 12.9 14.0-18.0 g/dL Hematocrit 38.0 42-52 % Mean Corpuscular Volume 90.3 80-100 fL Mean Corpuscular Hemoglobin 30.6 25-34 pg Mean Corpuscular Hemoglobin Concent 33.9 32-36 g/dl RDW Standard Deviation 47.3 36.4-46.3 fL RDW Coefficient of Variation 14.4 11.5-14.5 % Platelet Count 123 130-400 K/uL Mean Platelet Volume 9.5 7.4-10.4 fL Sodium Level 142 136-145 mmol/L Potassium Level 3.5 3.5-5.1 mmol/L Chloride Level 109 98-107 mmol/L Carbon Dioxide Level 24 21-32 mmol/L Anion Gap 9.0 3-11 mmol/L Blood Urea Nitrogen 28 7-18 mg/dl Creatinine 1.30 0.60-1.40 mg/dl Est Creatinine Clear Calc Drug Dose 52.4 ml/min Estimated GFR () 57.7 Estimated GFR (Non- 49.8 BUN/Creatinine Ratio 21.7 10-20 Random Glucose 83 70-99 mg/dl Calcium Level 7.8 8.5-10.1 mg/dl Magnesium Level 2.0 1.8-2.4 mg/dl
[2016-10-21] MEDS: LEVALBUTEROL 1.25MG/3ML NEB INH SCH ×2 (12:00→20:13)
[2016-10-21] MEDS: MONTELUKAST SOD 10 MG TAB PO SCH (20:11)
[2016-10-21] MEDS: FINASTERIDE 5 MG TAB PO SCH (20:13)
[2016-10-21] MEDS: ALUM HYDROX/MAG TRISILICATE CHEW PO PRN (21:38)
[2016-10-22] VITALS (7 sets, daily range): BP systolic 122–162; BP diastolic 76–103; PULSE 66–90; TEMP 36.3–36.7; O2SAT 93–96
[2016-10-22] MEDS: ACETAMINOPHEN 325 MG TAB PO PRN (00:58)
[2016-10-22] MEDS: SODIUM CHLORIDE 0.9% 1000ML 1,000 ML IV SCH (02:05)
[2016-10-22 06:40] LABS: HEMATOCRIT 36.1 % (42-52); MEAN CELL VOLUME 89.6 fL (80-100); MEAN CORPUSCULAR HEMOGLOBIN 30.5 pg (25-34); MEAN CORPUSCULAR HGB CONC 34.1 g/dl (32-36); MEAN PLATELET VOLUME 9.6 fL (7.4-10.4); PLATELET COUNT 125 K/uL (130-400); RED BLOOD COUNT 4.03 M/uL (4.7-6.1); WHITE BLOOD COUNT 5.84 K/uL (4.8-10.8)
[2016-10-22 07:07] LABS: BUN/CREATININE RATIO 16.7 (10-20); CREATININE 1.3 mg/dl (0.60-1.40); POTASSIUM 3.5 mmol/L (3.5-5.1)
[2016-10-22] MEDS: LEVALBUTEROL 1.25MG/3ML NEB INH SCH ×3 (07:27→20:20)
[2016-10-22] MEDS: LEVOFLOXACIN 500 MG TAB PO SCH (08:05)
[2016-10-22] MEDS: TIOTROPIUM BROMIDE 5 PUFF/90 MCG INH INH SCH (08:06)
[2016-10-22] MEDS: BENZONATATE 100MG CAP PO PRN ×2 (08:06→21:30)
[2016-10-22] MEDS: VERAPAMIL HCL 180 MG TABCR PO SCH (08:06)
[2016-10-22] MEDS: MULTIVITAMIN TAB PO SCH (08:07)
[2016-10-22] MEDS: POTASSIUM CHLORIDE 10 MEQ TABCR PO SCH (08:07)
[2016-10-22] MEDS: CLOPIDOGREL BISULFATE 75 MG TAB PO SCH (08:07)
[2016-10-22] MEDS: LORATADINE 10 MG TAB PO SCH (08:07)
[2016-10-22] MEDS: CALCIUM 600MG + VIT D 400 IU TAB PO SCH ×2 (08:07→21:31)
[2016-10-22] MEDS: BUDESONIDE/FORMOTEROL FUMARATE 160/4.5 60 PUFFS/INHALER INH SCH ×2 (08:08→21:29)
[2016-10-22] MEDS: HEPARIN SOD 5000 UNIT/0.5 ML CARP SQ SCH ×2 (08:15→21:37)
[2016-10-22] MEDS: ALUM HYDROX/MAG TRISILICATE CHEW PO PRN ×3 (08:18→17:14)
--- NOTE | 2016-10-22 19:28 | Progress Note ---
Medicine Progress Note Date & Time of Visit: Oct 22, 2016 at 19:13. Subjective Pt was seen and examined Sitting in bed very comfortable eating his lunch Pt said that he feels fine he said that his only complaint is tenderness in his mid gastric area after eating Denies any chest pain, palpitation, dizziness an SOB Objective Last 8 Hrs Date Time Temp Pulse Resp B/P Pulse Ox O2 Delivery O2 Flow Rate FiO2 10/22/16 16:39 Room Air 10/22/16 15:13 36.3 79 16 147/81 96 Room Air 10/22/16 14:16 79 16 94 Room Air Physical Exam: General- very pleasant, no acute distress Head- atraumatic Eyes- PERRL, EOMI ENT- oropharynx clear Neck- supple, no JVD Lungs- clear to auscultation and percussion Heart- regular rhythm; no murmur Abdomen- normal bowel sounds, soft, nontender Extremities- no calf tenderness Neuro- alert, orientedX3 PERRL, EOMI Skin- warm & dry Laboratory Results: Last 24 Hours Test 10/22/16 06:20 White Blood Count 5.84 K/uL Red Blood Count 4.03 M/uL Hemoglobin 12.3 g/dL Hematocrit 36.1 % Mean Corpuscular Volume 89.6 fL Mean Corpuscular Hemoglobin 30.5 pg Mean Corpuscular Hemoglobin Concent 34.1 g/dl RDW Standard Deviation 46.5 fL RDW Coefficient of Variation 14.0 % Platelet Count 125 K/uL Mean Platelet Volume 9.6 fL Sodium Level 143 mmol/L Potassium Level 3.5 mmol/L Chloride Level 110 mmol/L Carbon Dioxide Level 23 mmol/L Anion Gap 10.0 mmol/L Blood Urea Nitrogen 22 mg/dl Creatinine 1.30 mg/dl Est Creatinine Clear Calc Drug Dose 52.4 ml/min Estimated GFR () 57.7 Estimated GFR (Non- 49.8 BUN/Creatinine Ratio 16.7 Random Glucose 83 mg/dl Calcium Level 8.0 mg/dl Magnesium Level 2.0 mg/dl Assessment & Plan Right Sided Pneumonia Chest X-ray showed right basilar infiltrate On Levaquin (Day # 3) Flu was negative Nausea/Vomiting & Diarrhea: Mostly related to viral gastroenteritis Resolved History Asthma/COPD Asymptomatic Continue Bronchodilator Was supposed to get a sleep study, but was cancelled on the day of admission due to nausea /vomiting /diarrhea Stable History Chronic Atrial Fibrillation s/p ablation tx of recurrent flutter rate is controlled. Not on anticoagulant due to hx of bleeding Continue Verapamil Stable History Tachy/Kit Syndrome s/p pacemaker placement Stable CKD Stage III Stable Avoid any Nephrotoxic agents continue monitor BMP History BPH Stable. Continue Proscar Code Status: FULL CODE DVT Prophylaxis: Sq Heparin Disposition Will discharge in am social service consulted for discharge planning Current Inpatient Medications: Current Inpatient Medications Medications (Trade) Dose Ordered Sig/Akash Route Start Time Stop Time Status Last Admin Dose Admin Acetaminophen (Tylenol Tab) 650 mg Q4H PRN PO 10/20/16 03:45 11/19/16 03:44 10/22/16 00:58 650 MG Al Hydrox/Mg Hydrox/Simethicone (Maalox Max Susp) 15 ml Q4H PRN PO 10/20/16 03:45 11/19/16 03:44 Magnesium Hydroxide (Milk Of Magnesia Susp) 30 ml Q6H PRN PO 10/20/16 03:45 11/19/16 03:44 Polyethylene (Miralax Powder Packet) 17 gm DAILY PRN PO 10/20/16 03:45 11/19/16 03:44 Heparin Sodium (Porcine) (Heparin Sq 5000 Unit/0.5ml) 5,000 unit Q12H SQ 10/20/16 09:00 11/19/16 08:59 10/22/16 08:15 5,000 UNIT Benzonatate (Tessalon Perles Cap) 100 mg TID PRN PO 10/20/16 06:45 11/19/16 06:44 10/22/16 08:06 100 MG Budesonide/ Formoterol Fumarate (Symbicort 160/ 4.5 Inh) 2 puffs BID INH 10/20/16 09:00 11/19/16 08:59 10/22/16 08:08 2 PUFFS Clopidogrel Bisulfate (plAVix TAB) 75 mg DAILY PO 10/20/16 09:00 11/19/16 08:59 10/22/16 08:07 75 MG Loratadine (Claritin Tab) 10 mg DAILY PO 10/20/16 09:00 11/19/16 08:59 10/22/16 08:07 10 MG Montelukast Sodium (Singulair Tab) 10 mg QPM PO 10/20/16 21:00 11/19/16 20:59 10/21/16 20:11 10 MG Multivitamins (Multivitamin Tab) 1 tab DAILY PO 10/20/16 09:00 11/19/16 08:59 10/22/16 08:07 1 TAB Potassium Chloride (Klor-Con M10) 10 meq DAILY PO 10/20/16 09:00 11/19/16 08:59 10/22/16 08:07 10 MEQ Terazosin HCl (Hytrin Cap) 2 mg HS PO 10/20/16 21:00 11/19/16 20:59 10/21/16 20:16 2 MG Tiotropium [place] (Spiriva Handihaler Inhaler) 1 puff DAILY INH 10/20/16 09:00 11/19/16 08:59 10/22/16 08:06 1 PUFF Al Hydroxide/Mg Trisilicate (Gaviscon Chew Tab) 1 tab TID PRN PO 10/20/16 06:45 11/19/16 06:44 10/22/16 17:14 1 TAB Calcium/Vitamin D (Caltrate Plus Tab) 1 tab BID PO 10/20/16 09:00 11/19/16 08:59 10/22/16 08:07 1 TAB Miscellaneous Information (Order Awaiting Action) 1 ea QS N/A 10/20/16 08:00 11/19/16 07:59 Polyethylene (Miralax Powder Packet) 17 gm DAILY PRN PO 10/20/16 06:45 11/19/16 06:44 Verapamil HCl (Calan-Sr Tab) 180 mg DAILY PO 10/20/16 09:00 11/19/16 08:59 10/22/16 08:06 180 MG Albuterol/ Ipratropium (Duoneb) 3 ml Q4R PRN INH 10/20/16 07:00 11/19/16 06:59 10/20/16 15:17 3 ML Finasteride (Proscar Tab) 5 mg HS PO 10/21/16 21:00 11/20/16 20:59 10/21/16 20:13 5 MG Levalbuterol (Xopenex 1.25MG/ 3ML Neb) 1.25 mg Q6RWA INH 10/21/16 12:00 11/20/16 11:59 10/22/16 14:16 1.25 MG Levofloxacin (Levaquin Tab) 500 mg DAILY@11 PO 10/22/16 11:00 10/27/16 10:59 10/22/16 08:05 500 MG
[2016-10-22] MEDS: MONTELUKAST SOD 10 MG TAB PO SCH (21:30)
[2016-10-22] MEDS: FINASTERIDE 5 MG TAB PO SCH (21:31)
[2016-10-22] MEDS: RANITIDINE HCL 150 MG TAB PO SCH (23:18)
[2016-10-23] MEDS: ACETAMINOPHEN 325 MG TAB PO PRN ×2 (02:42→08:23)
[2016-10-23 06:06] LABS: HEMATOCRIT 38.7 % (42-52); MEAN CORPUSCULAR HEMOGLOBIN 31.2 pg (25-34); MEAN CORPUSCULAR HGB CONC 34.6 g/dl (32-36); PLATELET COUNT 133 K/uL (130-400); WHITE BLOOD COUNT 5.09 K/uL (4.8-10.8)
[2016-10-23 06:38] LABS: BUN/CREATININE RATIO 14.2 (10-20); CALCIUM 8.2 mg/dl (8.5-10.1); CREATININE 1.2 mg/dl (0.60-1.40); POTASSIUM 3.5 mmol/L (3.5-5.1)
[2016-10-23] MEDS: LEVALBUTEROL 1.25MG/3ML NEB INH SCH ×2 (07:47→14:26)
[2016-10-23 07:48] VITALS: PULSE 98; O2SAT 97
[2016-10-23 07:55] VITALS: BP 133/78; PULSE 100; TEMP 36; O2SAT 97
[2016-10-23] MEDS ORDERED: PANTOprazole SOD 40 MG TAB PO SCH (08:00)
[2016-10-23] MEDS: BUDESONIDE/FORMOTEROL FUMARATE 160/4.5 60 PUFFS/INHALER INH SCH (08:21)
[2016-10-23] MEDS: POTASSIUM CHLORIDE 10 MEQ TABCR PO SCH (08:22)
[2016-10-23] MEDS: TIOTROPIUM BROMIDE 5 PUFF/90 MCG INH INH SCH (08:22)
[2016-10-23] MEDS: RANITIDINE HCL 150 MG TAB PO SCH (08:22)
[2016-10-23] MEDS: MULTIVITAMIN TAB PO SCH (08:22)
[2016-10-23] MEDS: CLOPIDOGREL BISULFATE 75 MG TAB PO SCH (08:22)
[2016-10-23] MEDS: VERAPAMIL HCL 180 MG TABCR PO SCH (08:22)
[2016-10-23] MEDS: LORATADINE 10 MG TAB PO SCH (08:22)
[2016-10-23] MEDS: CALCIUM 600MG + VIT D 400 IU TAB PO SCH (08:23)
[2016-10-23] MEDS: HEPARIN SOD 5000 UNIT/0.5 ML CARP SQ SCH (08:27)
[2016-10-23] MEDS: LEVOFLOXACIN 500 MG TAB PO SCH (11:07)
[2016-10-23 11:19] VITALS: BP 118/78; PULSE 68; TEMP 36.4; O2SAT 95
[2016-10-23 14:26] VITALS: PULSE 83; O2SAT 97
--- NOTE | 2016-10-23 15:00 | Progress Note ---
Medicine Progress Note Date & Time of Visit: Oct 23, 2016 at 14:57. Subjective Pt was seen and examined Sitting in bed comfortable speaking with friend Pt said that he feels much better today Pt said that his breathing feels much better He denies any chest pain, palpitation, dizziness Objective Last 8 Hrs Date Time Temp Pulse Resp B/P Pulse Ox O2 Delivery O2 Flow Rate FiO2 10/23/16 14:26 83 16 97 Room Air 10/23/16 11:19 36.4 68 20 118/78 95 Room Air 10/23/16 08:00 Room Air 10/23/16 07:55 36.0 100 20 133/78 97 Room Air 10/23/16 07:48 98 16 97 Room Air Physical Exam: General- very pleasant, no acute distress Head- atraumatic Eyes- PERRL, EOMI ENT- oropharynx clear Neck- supple, no JVD Lungs- clear to auscultation and percussion Heart- regular rhythm; no murmur Abdomen- normal bowel sounds, soft, nontender Extremities- no calf tenderness Neuro- alert, orientedX3 PERRL, EOMI Skin- warm & dry Laboratory Results: Last 24 Hours Test 10/23/16 05:45 White Blood Count 5.09 K/uL Red Blood Count 4.30 M/uL Hemoglobin 13.4 g/dL Hematocrit 38.7 % Mean Corpuscular Volume 90.0 fL Mean Corpuscular Hemoglobin 31.2 pg Mean Corpuscular Hemoglobin Concent 34.6 g/dl RDW Standard Deviation 45.8 fL RDW Coefficient of Variation 13.8 % Platelet Count 133 K/uL Mean Platelet Volume 10.0 fL Sodium Level 146 mmol/L Potassium Level 3.5 mmol/L Chloride Level 111 mmol/L Carbon Dioxide Level 25 mmol/L Anion Gap 10.0 mmol/L Blood Urea Nitrogen 17 mg/dl Creatinine 1.20 mg/dl Est Creatinine Clear Calc Drug Dose 55.7 ml/min Estimated GFR () 63.1 Estimated GFR (Non- 54.4 BUN/Creatinine Ratio 14.2 Random Glucose 83 mg/dl Calcium Level 8.2 mg/dl Magnesium Level 2.0 mg/dl Assessment & Plan Right Sided Pneumonia Chest X-ray showed right basilar infiltrate On Levaquin (Day # 4) Flu was negative Clinically stable, will discharge home today Nausea/Vomiting & Diarrhea: Mostly related to viral gastroenteritis Resolved History Asthma/COPD Asymptomatic Continue Bronchodilator Was supposed to get a sleep study, but was cancelled on the day of admission due to nausea /vomiting /diarrhea Stable History Chronic Atrial Fibrillation s/p ablation tx of recurrent flutter rate is controlled. Not on anticoagulant due to hx of bleeding Continue Verapamil Stable History Tachy/Kit Syndrome s/p pacemaker placement Stable CKD Stage III Stable Avoid any Nephrotoxic agents continue monitor BMP History BPH Stable. Continue Proscar Code Status: FULL CODE DVT Prophylaxis: Sq Heparin Disposition Will discharge home today social service consulted for discharge planning Current Inpatient Medications: Current Inpatient Medications Medications (Trade) Dose Ordered Sig/Akash Route Start Time Stop Time Status Last Admin Dose Admin Acetaminophen (Tylenol Tab) 650 mg Q4H PRN PO 10/20/16 03:45 11/19/16 03:44 10/23/16 08:23 650 MG Al Hydrox/Mg Hydrox/Simethicone (Maalox Max Susp) 15 ml Q4H PRN PO 10/20/16 03:45 11/19/16 03:44 Magnesium Hydroxide (Milk Of Magnesia Susp) 30 ml Q6H PRN PO 10/20/16 03:45 11/19/16 03:44 Polyethylene (Miralax Powder Packet) 17 gm DAILY PRN PO 10/20/16 03:45 11/19/16 03:44 Heparin Sodium (Porcine) (Heparin Sq 5000 Unit/0.5ml) 5,000 unit Q12H SQ 10/20/16 09:00 11/19/16 08:59 10/23/16 08:27 5,000 UNIT Benzonatate (Tessalon Perles Cap) 100 mg TID PRN PO 10/20/16 06:45 11/19/16 06:44 10/22/16 21:30 100 MG Budesonide/ Formoterol Fumarate (Symbicort 160/ 4.5 Inh) 2 puffs BID INH 10/20/16 09:00 11/19/16 08:59 10/23/16 08:21 2 PUFFS Clopidogrel Bisulfate (plAVix TAB) 75 mg DAILY PO 10/20/16 09:00 11/19/16 08:59 10/23/16 08:22 75 MG Loratadine (Claritin Tab) 10 mg DAILY PO 10/20/16 09:00 11/19/16 08:59 10/23/16 08:22 10 MG Montelukast Sodium (Singulair Tab) 10 mg QPM PO 10/20/16 21:00 11/19/16 20:59 10/22/16 21:30 10 MG Multivitamins (Multivitamin Tab) 1 tab DAILY PO 10/20/16 09:00 11/19/16 08:59 10/23/16 08:22 1 TAB Potassium Chloride (Klor-Con M10) 10 meq DAILY PO 10/20/16 09:00 11/19/16 08:59 10/23/16 08:22 10 MEQ Terazosin HCl (Hytrin Cap) 2 mg HS PO 10/20/16 21:00 11/19/16 20:59 10/22/16 21:30 2 MG Tiotropium [place] (Spiriva Handihaler Inhaler) 1 puff DAILY INH 10/20/16 09:00 11/19/16 08:59 10/23/16 08:22 1 PUFF Al Hydroxide/Mg Trisilicate (Gaviscon Chew Tab) 1 tab TID PRN PO 10/20/16 06:45 11/19/16 06:44 10/22/16 17:14 1 TAB Calcium/Vitamin D (Caltrate Plus Tab) 1 tab BID PO 10/20/16 09:00 11/19/16 08:59 10/23/16 08:23 1 TAB Miscellaneous Information (Order Awaiting Action) 1 ea QS N/A 10/20/16 08:00 11/19/16 07:59 Polyethylene (Miralax Powder Packet) 17 gm DAILY PRN PO 10/20/16 06:45 11/19/16 06:44 Verapamil HCl (Calan-Sr Tab) 180 mg DAILY PO 10/20/16 09:00 11/19/16 08:59 10/23/16 08:22 180 MG Albuterol/ Ipratropium (Duoneb) 3 ml Q4R PRN INH 10/20/16 07:00 11/19/16 06:59 10/20/16 15:17 3 ML Finasteride (Proscar Tab) 5 mg HS PO 10/21/16 21:00 11/20/16 20:59 10/22/16 21:31 5 MG Levalbuterol (Xopenex 1.25MG/ 3ML Neb) 1.25 mg Q6RWA INH 10/21/16 12:00 11/20/16 11:59 10/23/16 14:26 1.25 MG Levofloxacin (Levaquin Tab) 500 mg DAILY@11 PO 10/22/16 11:00 10/27/16 10:59 10/23/16 11:07 500 MG Ranitidine HCl (zANTac TAB) 150 mg BID PO 10/22/16 22:00 11/21/16 21:59 10/23/16 08:22 150 MG Pantoprazole Sodium (Protonix Tab) 40 mg QAM PO 10/23/16 08:00 11/22/16 07:59 10/23/16 08:22 40 MG
[2016-10-23 15:06] VITALS: BP 118/78; PULSE 83; TEMP 36.4; O2SAT 97
[2016-10-23] MEDS ORDERED: LVQ500 PO (15:07)
--- NOTE | 2016-10-23 15:15 | Discharge Instructions ---
Discharge Instructions Admission Reason for Admission: Pneumonia Discharge Discharge Diagnosis / Problem: Pneumonia, viral gastroenteritis, Asthma, COPD, Chronic Afib Discharge Goals Goal(s): Decrease discomfort, Improve function, Improve disease control Activity Recommendations Activity Limitations: resume your previous activity (as tolerated) . Instructions / Follow-Up Instructions / Follow-Up Follow up appointment with your PCP Dr. Banda on Oct 30 @ 1:10 pm Complete the course of antibiotic (levaquin) Current Hospital Diet Patient's current hospital diet: AHA Diet (Heart Healthy) Discharge Diet Recommended Diet: AHA Diet (Heart Healthy) Pending Studies Studies pending at discharge: no Medical Emergencies . Who to Call and When: Medical Emergencies: If at any time you feel your situation is an emergency, please call 911 immediately. . Non-Emergent Contact Non-Emergency issues call your: Primary Care Provider Call Non-Emergent contact if: you have a fever, you have any medication questions . . "Provider Documentation" section prepared by Yoly Forde. VTE Core Measure Inpt VTE Proph given/why not?: Unfractionated heparin SQ
[2016-10-23 15:18] VITALS: BP 120/75; PULSE 81; TEMP 36.4; O2SAT 97
--- NOTE | 2016-10-26 00:25 | Discharge Summary ---
Discharge Summary Admission Date: Oct 20, 2016 at 03:56 Discharge Date: Oct 23, 2016 Discharge Disposition: Home Principal Diagnosis: Right sided Pneumonia Secondary Diagnoses/Problems: Pneumonia Viral gastroenteritis Asthma COPD Chronic Afib History Tachy/Kit Syndrome CKD Stage III Procedures: CHEST ONE VIEW PORTABLE CLINICAL HISTORY: Pneumonia. COMPARISON STUDY: Chest radiograph October 20, 2016. FINDINGS: A dual lead left subclavian pacemaker and right axillary surgical clips are again noted. Mild cardiomegaly is unchanged. There is no pneumothorax. No pleural effusion is present. Mild interstitial thickening persists. IMPRESSION: 1. No significant change in thickening. 2. A few possible hazy bilateral airspace opacities which could reflect an infectious process. No lobar consolidation. Electronically signed by: Damion Grigsby M.D. 10/21/2016 7:30 AM Dictated Date/Time: 10/21/2016 7:28 AM The status of this report is Signed. Medication Reconciliation New Medications: Levofloxacin (Levofloxacin) 500 Mg Tab 500 MG PO DAILY@11 for 3 Days, #3 TAB Continued Medications: Acetaminophen (Tylenol) 500 Mg Tab 1000 MG PO Q4 PRN for Pain Aluminum Hydroxide-Mag Carb (Gaviscon) 1 Oliva Oliva 5 ML PO TID PRN for ACID REFLUX Benzonatate (Tessalon Perles) 100 Mg Cap 100 MG PO TID PRN for Cough, CAP Budesonide/Formoterol Fumarate (Symbicort 160/4.5 Inhaler) 120 Puffs/ Aero 2 PUFFS INH BID Calcium Carbonate-Vitamin D (Calcium 600 + D) 1 Tab Tab 1 TAB PO BID Clopidogrel (Plavix) 75 Mg Tab 75 MG PO DAILY, TAB Finasteride (Proscar) 5 Mg Tab 5 MG PO DAILY, TAB Flunisolide (Nasal) (Flunisolide) 0.025 % Spr 2 SPRY MARVIN BID, #25 ML 3 Refills Ipratropium [place] (Atrovent 0.02% Soln) 2.5 Ml Nebu 2.5 ML INH TID PRN for SOB/Wheezing for 30 Days Levalbuterol (Levalbuterol HCl) 1.25 Mg/3 Ml Nebu 1.25 MG INH Q6 PRN for SOB/Wheezing Levalbuterol Tartrate (Levalbuterol Tartrate Hfa) 45 Mcg/Act Aer 2 PUFF INH TID PRN for SOB/Wheezing Loratadine (Claritin) 10 Mg Tab 10 MG PO DAILY, 0 Refills Misc Natural Products (Osteo Bi-Flex Advanced Tr) 1 Tab Tab 1 TAB PO BID Montelukast Sodium (Singulair) 10 Mg Tab 10 MG PO QPM Multivitamin (Multivitamin) Tab 1 TAB PO DAILY, TAB Polyethylene Glycol 3350 (Miralax) 1 Pow Pow 17 GM PO DAILY PRN for Constipation Potassium Chloride (Micro-K Ext Rel) 10 Meq Capcr 10 MEQ PO DAILY, CAP Ranitidine HCl (Ranitidine HCl) 150 Mg Tab 150 MG PO BID Terazosin Hcl (Hytrin) 2 Mg Cap 2 MG PO HS, CAP Tiotropium [place] (Spiriva Handihaler) 30 Puff/540 Mcg Aerp 1 CAP INH DAILY, INHALER Verapamil Hcl (Verapamil Hcl Sr) 180 Mg Cap 180 MG PO DAILY Admission Information HPI (per Admitting provider): The patient is an 85 year old male who presents to the Emergency Room with complaints of persistent vomiting that started a few hours ago. pt was schedule to have sleep study done today to assess MARU at the study -pt developed severe nausea /vomiting /abdominal pain and diarrhea history is limited as pt was given Phenergan and Ativan in ED remains groggy lab work is unremarkable except for mild leukocytosis WBC 11 K mild dehydration with BUN 22 /Cr 1.3 POC lactic acid 1.8 repeat level after IV hydration 1.3 Physical Exam (per Admitting): General Appearance: + pertinent finding (groogy , sleeping , wakes up to voice , unable to provide answers ) Head: normocephalic, atraumatic Eyes: sclerae normal Neck: thyroid normal Respiratory/Chest: chest non-tender, lungs clear, normal breath sounds, no respiratory distress Abdomen/GI: non tender, soft Neurologic/Psych: + disoriented Hospital Course Right Sided Pneumonia Chest X-ray showed right basilar infiltrate On Levaquin (Day # 4) Flu was negative Clinically stable, will discharge home today Nausea/Vomiting & Diarrhea: Mostly related to viral gastroenteritis Resolved History Asthma/COPD Asymptomatic Continue Bronchodilator Was supposed to get a sleep study, but was cancelled on the day of admission due to nausea /vomiting /diarrhea Stable History Chronic Atrial Fibrillation s/p ablation tx of recurrent flutter rate is controlled. Not on anticoagulant due to hx of bleeding Continue Verapamil Stable History Tachy/Kit Syndrome s/p pacemaker placement Stable CKD Stage III Stable Avoid any Nephrotoxic agents continue monitor BMP History BPH Stable. Continue Proscar Code Status: FULL CODE DVT Prophylaxis: Sq Heparin Disposition Will discharge home today social service consulted for discharge planning Total time spent on discharge = 35 minutes This includes examination of the patient, discharge planning, medication reconciliation, and communication with other providers. Discharge Instructions Discharge Instructions Admission Reason for Admission: Pneumonia Discharge Discharge Diagnosis / Problem: Pneumonia, viral gastroenteritis, Asthma, COPD, Chronic Afib Discharge Goals Goal(s): Decrease discomfort, Improve function, Improve disease control Activity Recommendations Activity Limitations: resume your previous activity (as tolerated) . Instructions / Follow-Up Instructions / Follow-Up Follow up appointment with your PCP Dr. Banda on Oct 30 @ 1:10 pm Complete the course of antibiotic (levaquin) Current Hospital Diet Patient's current hospital diet: AHA Diet (Heart Healthy) Discharge Diet Recommended Diet: AHA Diet (Heart Healthy) Pending Studies Studies pending at discharge: no Medical Emergencies . Who to Call and When: Medical Emergencies: If at any time you feel your situation is an emergency, please call 911 immediately. . Non-Emergent Contact Non-Emergency issues call your: Primary Care Provider Call Non-Emergent contact if: you have a fever, you have any medication questions . . "Provider Documentation" section prepared by Yoly Forde. VTE Core Measure Inpt VTE Proph given/why not?: Unfractionated heparin SQ Additional Copies To Dionte Banda D.O.
[2016-12-01] MEDS ORDERED: HYT/2 PO (02:43)
[2016-12-01] MEDS ORDERED: VERA180C3 PO (02:58)
[2016-12-01] MEDS ORDERED: MULT-506 PO (03:13)
[2016-12-01] MEDS ORDERED: POLY335019 PO (10:29)
[2016-12-01] MEDS ORDERED: POTA10CA28 PO (10:34)
[2016-12-01] MEDS ORDERED: MONT1TAB3 PO (10:37)
[2016-12-01] MEDS ORDERED: SYMIN160 INH (10:37)
[2016-12-01] MEDS ORDERED: CALC-20 PO (10:40)
[2016-12-01] MEDS ORDERED: MISCTAB29 PO (10:40)
[2016-12-01] MEDS ORDERED: ACET-1256 PO (10:43)
[2016-12-01] MEDS ORDERED: CLOP1TAB15 PO (13:51)
[2016-12-01] MEDS ORDERED: PRT/40 PO (16:14)
[2016-12-01] MEDS ORDERED: RANI150T2 PO (16:14)
[2016-12-01] MEDS ORDERED: LEVA1.255 NEB (16:26)
[2016-12-01] MEDS ORDERED: ATRINSX NEB (16:26)
[2016-12-01] MEDS ORDERED: FINA5TAB PO (18:57)
[2016-12-01] MEDS ORDERED: SPRIN/30 INH (18:57)
[2016-12-01] MEDS ORDERED: LEVA45AE INH (18:58)
[2016-12-01] MEDS ORDERED: ALUMSUS21 PO (19:38)
[2016-12-03] MEDS ORDERED: LVQ500 PO (14:42)
[2016-12-03] MEDS ORDERED: PRED10TA PO (14:47)
== END 2016-10-23 15:37 | disposition home health service (06) ==
LOC: ENRESERVTM → ENRESERVDT → EDBD 01:14 → C.EDA 01:15 → C.2T 03:56 → UNDOADMOB 04:37 → C.2T 04:37 → EDBEDREQ 10-21 11:42 → C.4E 10-21 12:47
PROVIDERS: ADMIT Hospitalist; ATTEND Internal Medicine
DX: J18.9 Pneumonia, unspecified organism (principal); A08.4 Viral intestinal infection, unspecified; J44.9 Chronic obstructive pulmonary disease, unspecified; I48.2 Chronic atrial fibrillation; G47.33 Obstructive sleep apnea (adult) (pediatric); N40.0 Benign prostatic hyperplasia without lower urinary tract symptoms; N18.3 Chronic kidney disease, stage 3 (moderate); M35.3 Polymyalgia rheumatica; K21.9 Gastro-esophageal reflux disease without esophagitis; K58.9 Irritable bowel syndrome, unspecified; Z95.0 Presence of cardiac pacemaker; Z86.73 Personal history of transient ischemic attack (TIA), and cerebral infarction without residual deficits; Z85.828 Personal history of other malignant neoplasm of skin

== ENCOUNTER 2016-11-19 11:22 | Emergency (ER) | payer OTHER, BC ==
[~2016-11-19] VITALS: Ht 195.6 cm; Wt 99.6 kg
[~2016-11-19 11:22] MED LIST changes: -LEVA45AE INH; +LVQ500 PO; -PANT40TA PO; +RANI150T2 PO
--- NOTE | 2016-11-19 11:31 | EMERGENCY ROOM VISIT NOTE ---
History Report prepared by Tina: Effie Hooks Under the Supervision of: Dr. Dre Segura M.D. 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 He denies any chest pain or pressure. The patient has a pacemaker, but per EMS, it did not seem to be active on the monitor en route. He has a history of chronic a-fib and tachy-noble syndrome with previous ablation attempts. He does have a cough, but states that it is consistent with his asthma flare-ups as he develops a cough with temperature changes. He does not have any other complaints. He uses oxygen at home when needed. He is not on anticoagulation due to previous episodes of bleeding. 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 A total of 10 systems reviewed and were otherwise negative. 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 Social History Marital Status: Occupation Status: retired Current/Historical Medications Scheduled Budesonide/Formoterol Fumarate (Symbicort 160/4.5 Inhaler), 2 PUFFS INH BID Calcium Carbonate-Vitamin D (Calcium 600 + D), 1 TAB PO BID Clopidogrel (Plavix), 75 MG PO DAILY Finasteride (Proscar), 5 MG PO DAILY Flunisolide (Nasal) (Flunisolide), 2 SPRY MARVIN BID Levofloxacin (Levofloxacin), 500 MG PO DAILY@11 Loratadine (Claritin), 10 MG PO DAILY Misc Natural Products (Osteo Bi-Flex Advanced Tr), 1 TAB PO BID Montelukast Sodium (Singulair), 10 MG PO QPM Multivitamin (Multivitamin), 1 TAB PO DAILY Pantoprazole (Protonix), 40 MG PO BID Potassium Chloride (Micro-K Ext Rel), 10 MEQ PO DAILY Terazosin Hcl (Hytrin), 2 MG PO HS Tiotropium [place] (Spiriva Handihaler), 1 CAP INH DAILY Verapamil Hcl (Verapamil Hcl Sr), 180 MG PO DAILY Scheduled PRN Acetaminophen (Tylenol), 1,000 MG PO Q4 PRN for Pain Aluminum Hydroxide-Mag Carb (Gaviscon), 5 ML PO TID PRN for ACID REFLUX Benzonatate (Tessalon Perles), 100 MG PO TID PRN for Cough Ipratropium [place] (Atrovent 0.02% Soln), 2.5 ML INH TID PRN for SOB/Wheezing Levalbuterol (Levalbuterol HCl), 1.25 MG INH Q6 PRN for SOB/Wheezing Levalbuterol Tartrate (Levalbuterol Tartrate Hfa), 2 PUFF INH TID PRN for SOB/ Wheezing Polyethylene Glycol 3350 (Miralax), 17 GM PO DAILY PRN for Constipation Allergies Coded Allergies: Aspirin (Verified Allergy, Severe, TIGHTNESS IN CHEST, 11/19/16) NSAIDs (Verified Allergy, Severe, TIGHTNESS IN THE CHEST, 11/19/16) Rofecoxib (Verified Allergy, Severe, TIGHTNESS IN CHEST, 11/19/16) Physical Exam Vital Signs Date Time Temp Pulse Resp B/P Pulse Ox O2 Delivery O2 Flow Rate FiO2 11/19/16 13:54 80 22 140/83 93 Room Air 11/19/16 13:36 80 18 138/82 95 Room Air 11/19/16 13:01 80 20 111/86 97 Room Air 11/19/16 12:58 75 11/19/16 12:30 84 20 113/74 93 Room Air 11/19/16 11:54 130 20 126/66 95 Room Air 11/19/16 11:49 104 11/19/16 11:32 92 Room Air 11/19/16 11:32 36.7 130 23 121/86 94 Room Air Physical Exam GENERAL: Patient is well appearing and in no acute distress. HEENT: No acute trauma, normocephalic atraumatic, mucous membranes moist, no nasal congestion, no scleral icterus. NECK: No stridor, no adenopathy, no meningismus, trachea is midline. LUNGS: No dyspnea. Some crackles in the left lower lobe to auscultation. Periodic cough. HEART: Regular rate and rhythm. No murmurs, rubs, gallops appreciated. ABDOMEN: Soft, nontender, bowel sounds positive, no masses appreciated, no peritonitis. BACK: No midline tenderness, no CVA tenderness EXTREMITIES: Normal motion all extremities, no cyanosis, no edema. NEUROLOGIC: Alert and oriented, no acute motor or sensory deficits, no focal weakness, cranial nerves grossly intact. SKIN: No rash, no jaundice, no diaphoresis. Medical Decision & Procedures ER Provider Diagnostic Interpretation: Radiology results and stated below per my review and radiologist interpretation: CHEST ONE VIEW PORTABLE CLINICAL HISTORY: Chest pain. COMPARISON STUDY: Chest radiograph October 21, 2016. FINDINGS: A dual lead left pacemaker is in place. Mild cardiomegaly is unchanged. There are right axillary surgical clips. There is no pneumothorax or pleural effusion. Mild interstitial thickening remains unchanged. No superimposed consolidation is evident. IMPRESSION: 1. No change in age indeterminate interstitial thickening. 2. No superimposed consolidation. 3. Mild left basilar opacity which likely reflects atelectasis. Electronically signed by: Damion Grigsby M.D. 11/19/2016 11:59 AM Dictated Date/Time: 11/19/2016 11:52 AM Laboratory Results 11/19/16 11:35 Red Blood Count 4.70, Mean Corpuscular Volume 91.1, Mean Corpuscular Hemoglobin 31.1, Mean Corpuscular Hemoglobin Concent 34.1, Mean Platelet Volume 9.7, Neutrophils (%) (Auto) 67.5, Lymphocytes (%) (Auto) 17.7, Monocytes (%) (Auto) 9.3, Eosinophils (%) (Auto) 4.6, Basophils (%) (Auto) 0.3, Neutrophils # (Auto) 6.60, Lymphocytes # (Auto) 1.73, Monocytes # (Auto) 0.91, Eosinophils # (Auto) 0.45, Basophils # (Auto) 0.03 11/19/16 11:35 Test 11/19/16 11:35 11/19/16 13:18 White Blood Count 9.78 K/uL (4.8-10.8) Red Blood Count 4.70 M/uL (4.7-6.1) Hemoglobin 14.6 g/dL (14.0-18.0) Hematocrit 42.8 % (42-52) Mean Corpuscular Volume 91.1 fL (80-100) Mean Corpuscular Hemoglobin 31.1 pg (25-34) Mean Corpuscular Hemoglobin Concent 34.1 g/dl (32-36) Platelet Count 148 K/uL (130-400) Mean Platelet Volume 9.7 fL (7.4-10.4) Neutrophils (%) (Auto) 67.5 % Lymphocytes (%) (Auto) 17.7 % Monocytes (%) (Auto) 9.3 % Eosinophils (%) (Auto) 4.6 % Basophils (%) (Auto) 0.3 % Neutrophils # (Auto) 6.60 K/uL (1.4-6.5) Lymphocytes # (Auto) 1.73 K/uL (1.2-3.4) Monocytes # (Auto) 0.91 K/uL (0.11-0.59) Eosinophils # (Auto) 0.45 K/uL (0-0.5) Basophils # (Auto) 0.03 K/uL (0-0.2) RDW Standard Deviation 45.4 fL (36.4-46.3) RDW Coefficient of Variation 13.6 % (11.5-14.5) Immature Granulocyte % (Auto) 0.6 % Immature Granulocyte # (Auto) 0.06 K/uL (0.00-0.02) Prothrombin Time 10.8 SECONDS (9.0-12.0) Prothromb Time International Ratio 1.0 (0.9-1.1) Activated Partial Thromboplast Time 31.4 SECONDS (21.0-31.0) Partial Thromboplastin Ratio 1.2 Anion Gap 7.0 mmol/L (3-11) Est Creatinine Clear Calc Drug Dose 55.7 ml/min Estimated GFR () 63.1 Estimated GFR (Non- 54.4 BUN/Creatinine Ratio 19.3 (10-20) Calcium Level 8.6 mg/dl (8.5-10.1) Magnesium Level 2.3 mg/dl (1.8-2.4) Total Creatine Kinase 88 U/L (39-308) Creatine Kinase MB 2.6 ng/ml (0.5-3.6) Creatine Kinase MB Ratio 3.0 (0-3.0) Troponin I < 0.015 ng/ml (0-0.045) Laboratory results as reviewed by me. Medications Administered Medications (Trade) Dose Ordered Sig/Akash Route Start Time Stop Time Status Last Admin Dose Admin Diltiazem HCl (Cardizem Inj) 15 mg NOW STAT IV 11/19/16 11:47 11/19/16 11:48 DC 11/19/16 11:56 15 MG Diltiazem HCl (Cardizem Inj) 20 mg NOW STAT IV 11/19/16 12:21 11/19/16 12:22 DC 11/19/16 12:25 20 MG ECG Indication: palpitations Rate (beats per minute): 123 Rhythm: atrial fibrillation (with RVR) Findings: prolonged QT, other (nonspecific lateral T wave depression, QTc 518) Change: Repeat EKG: AV paced, no ectopy, no ischemia. This is a change from a-fib in previous EKG. ED Course 1124: The patient was evaluated in room C4. A complete history and physical exam was performed. 1147: Ordered Diltiazem HCl 15 mg IV. 1221: I reassessed the patient. His heart rate was 125 BPM 15 minutes post Cardizem. Ordered Diltiazem HCl 20 mg IV. 1235: I reassessed the patient. His palpitations have resolved and his heart rate is down to 80. 1247: I reassessed the patient. He is feeling well and wants to go home. He is now in a paced rhythm at 80 BPM and does not feel any palpitations. 1350: Reevaluated the patient. He was feeling fine. Discussed results and discharge instructions: He verbalized understanding and agreement. The patient is ready for discharge. Medical Decision Differential: NSR, SVT, PACs, PVCs, Cardiac Dysrhythmia, Endocrine Dysfunction, Electrolyte/Metabolic Abnormality, Pulmonary Embolism, Infectious, GI, amongst other pathologies entertained. 86 yr old pleasant male arrives for palpitations. Makes very clear he is NOT having chest pain nor pressure. History of Afib with periodic RVR. Took his meds this morning as prescribed. Arrives AFib RVR without other complaints. Reverted to Paced rhythm with second dose Cardizem. States feels fine and wants to go home. HR much improved and patient feeling well for several hours with HR stable. Repeat Trop negative. patient still wishing for discharge. Aware that with need for second Cardizem dose he may end up needing to return though he still wishes to go home. Cough chronic and he states unchanged. Impression Primary Impression: Tachy-noble syndrome Additional Impression: Atrial fibrillation with RVR Scribe Attestation The scribe's documentation has been prepared under my direction and personally reviewed by me in its entirety. I confirm that the note above accurately reflects all work, treatment, procedures, and medical decision making performed by me. Departure Information Dispostion Home / Self-Care Patient Instructions ED Palpitations, My [facility] Health Problem Qualifiers
[2016-11-19 11:32] VITALS: TEMP 36.7; Ht 195.6 cm; Wt 99.6 kg
[2016-11-19] MEDS ORDERED: PANT40TA PO (11:34)
[2016-11-19 11:45] LABS: BASO % 0.3 %; BASO ABS # 0.03 K/uL (0-0.2); COMPLETE YES; EOS % 4.6 %; HEMATOCRIT 42.8 % (42-52); IG% 0.6 %; LYMPH % 17.7 %; LYMPH ABS # 1.73 K/uL (1.2-3.4); MEAN CELL VOLUME 91.1 fL (80-100); MEAN CORPUSCULAR HEMOGLOBIN 31.1 pg (25-34); MEAN CORPUSCULAR HGB CONC 34.1 g/dl (32-36); MEAN PLATELET VOLUME 9.7 fL (7.4-10.4); MONO % 9.3 %; NEUT % 67.5 %; PLATELET COUNT 148 K/uL (130-400); WHITE BLOOD COUNT 9.78 K/uL (4.8-10.8)
[2016-11-19] MEDS ORDERED: DILTIAZEM HCL 5 MG/ML 5 ML VIAL IV STA ×2 (11:47→12:21)
--- NOTE | 2016-11-19 12:01 | DIAGNOSTIC IMAGING REPORT ---
CHEST ONE VIEW PORTABLE CLINICAL HISTORY: Chest pain. COMPARISON STUDY: Chest radiograph October 21, 2016. FINDINGS: A dual lead left pacemaker is in place. Mild cardiomegaly is unchanged. There are right axillary surgical clips. There is no pneumothorax or pleural effusion. Mild interstitial thickening remains unchanged. No superimposed consolidation is evident. IMPRESSION: 1. No change in age indeterminate interstitial thickening. 2. No superimposed consolidation. 3. Mild left basilar opacity which likely reflects atelectasis. Electronically signed by: Damion Grigsby M.D. 11/19/2016 11:59 AM Dictated Date/Time: 11/19/2016 11:52 AM
[2016-11-19 12:03] LABS: BLOOD UREA NITROGEN 23 mg/dl (7-18); BUN/CREATININE RATIO 19.3 (10-20); CALCIUM 8.6 mg/dl (8.5-10.1); CARBON DIOXIDE 30 mmol/L (21-32); CHLORIDE 106 mmol/L (98-107); GLUCOSE 91 mg/dl (70-99); MAGNESIUM 2.3 mg/dl (1.8-2.4); POTASSIUM 3.7 mmol/L (3.5-5.1); SODIUM 143 mmol/L (136-145)
[2016-11-19 12:04] LABS: PARTIAL THROMBOPLASTIN RATIO 1.2; PROTHROMBIN TIME (PATIENT) 10.8 SECONDS (9.0-12.0)
[2016-11-19 13:54] VITALS: BP 140/83; PULSE 80; O2SAT 93
[2016-12-01] MEDS ORDERED: HYT/2 PO (02:43)
[2016-12-01] MEDS ORDERED: VERA180C3 PO (02:58)
[2016-12-01] MEDS ORDERED: MULT-506 PO (03:13)
[2016-12-01] MEDS ORDERED: POLY335019 PO (10:29)
[2016-12-01] MEDS ORDERED: POTA10CA28 PO (10:34)
[2016-12-01] MEDS ORDERED: SYMIN160 INH (10:37)
[2016-12-01] MEDS ORDERED: MONT1TAB3 PO (10:37)
[2016-12-01] MEDS ORDERED: CALC-20 PO (10:40)
[2016-12-01] MEDS ORDERED: MISCTAB29 PO (10:40)
[2016-12-01] MEDS ORDERED: ACET-1256 PO (10:43)
[2016-12-01] MEDS ORDERED: CLOP1TAB15 PO (13:51)
[2016-12-01] MEDS ORDERED: RANI150T2 PO (16:14)
[2016-12-01] MEDS ORDERED: PRT/40 PO (16:14)
[2016-12-01] MEDS ORDERED: ATRINSX NEB (16:26)
[2016-12-01] MEDS ORDERED: LEVA1.255 NEB (16:26)
[2016-12-01] MEDS ORDERED: SPRIN/30 INH (18:57)
[2016-12-01] MEDS ORDERED: FINA5TAB PO (18:57)
[2016-12-01] MEDS ORDERED: LEVA45AE INH (18:58)
[2016-12-01] MEDS ORDERED: ALUMSUS21 PO (19:38)
[2016-12-03] MEDS ORDERED: LVQ500 PO (14:42)
[2016-12-03] MEDS ORDERED: PRED10TA PO (14:47)
== END 2016-11-19 14:05 | disposition home or self-care (01) ==
LOC: EDBD 11:22 → C.EDC 11:25
DX: I49.5 Sick sinus syndrome (principal); I48.91 Unspecified atrial fibrillation; Z95.0 Presence of cardiac pacemaker; J45.909 Unspecified asthma, uncomplicated; N40.0 Benign prostatic hyperplasia without lower urinary tract symptoms; N18.3 Chronic kidney disease, stage 3 (moderate); K21.9 Gastro-esophageal reflux disease without esophagitis; K58.9 Irritable bowel syndrome, unspecified; M35.3 Polymyalgia rheumatica; Z87.01 Personal history of pneumonia (recurrent); Z86.73 Personal history of transient ischemic attack (TIA), and cerebral infarction without residual deficits; Z90.49 Acquired absence of other specified parts of digestive tract; Z85.828 Personal history of other malignant neoplasm of skin; Z79.899 Other long term (current) drug therapy

== ENCOUNTER 2016-11-26 13:51 | Emergency (ER) | payer OTHER, BC ==
[~2016-11-26] VITALS: Ht 195.6 cm; Wt 98.0 kg
[~2016-11-26 13:51] MED LIST changes: +PANT40TA PO; -RANI150T2 PO
[2016-11-26 14:00] VITALS: TEMP 36.5
[2016-11-26] MEDS ORDERED: SODIUM CHLORIDE 0.9% 1000ML 1,000 ML IV STA (15:11)
[2016-11-26 15:13] VITALS: Ht 195.6 cm; Wt 98.0 kg
[2016-11-26 15:15] VITALS: O2SAT 100
[2016-11-26 15:41] LABS: BASO % 0.2 %; BASO ABS # 0.01 K/uL (0-0.2); COMPLETE YES; EOS % 9.2 %; HEMATOCRIT 40.5 % (42-52); IG% 0.6 %; LYMPH % 29.7 %; LYMPH ABS # 1.61 K/uL (1.2-3.4); MEAN CELL VOLUME 89.2 fL (80-100); MEAN CORPUSCULAR HGB CONC 33.6 g/dl (32-36); MEAN PLATELET VOLUME 9.2 fL (7.4-10.4); NEUT % 51.3 %; PLATELET COUNT 166 K/uL (130-400); RED BLOOD COUNT 4.54 M/uL (4.7-6.1); WHITE BLOOD COUNT 5.42 K/uL (4.8-10.8)
[2016-11-26 15:51] LABS: PARTIAL THROMBOPLASTIN RATIO 1.2; PROTHROMBIN TIME (PATIENT) 10.6 SECONDS (9.0-12.0)
[2016-11-26 16:06] LABS: ALT/SGPT 24 U/L (12-78); AST/SGOT 18 U/L (15-37); BLOOD UREA NITROGEN 21 mg/dl (7-18); BUN/CREATININE RATIO 19.2 (10-20); CALCIUM 8.5 mg/dl (8.5-10.1); CARBON DIOXIDE 28 mmol/L (21-32); CHLORIDE 107 mmol/L (98-107); GLUCOSE 87 mg/dl (70-99); MAGNESIUM 2.3 mg/dl (1.8-2.4); POTASSIUM 3.9 mmol/L (3.5-5.1); SODIUM 144 mmol/L (136-145)
--- NOTE | 2016-11-26 16:09 | DIAGNOSTIC IMAGING REPORT ---
CHEST ONE VIEW PORTABLE HISTORY: EVALUATE WEAKNESS COMPARISON: Chest 11/19/2016. FINDINGS: Left-sided dual-chamber pacemaker. The heart remains mildly enlarged. No pleural effusions. No pneumothorax. Surgical clips within the right axilla. Diffuse interstitial thickening and bilateral hilar prominence persists. Linear density left lung base favor subsegmental atelectasis. IMPRESSION: No change from the prior study. Diffuse interstitial thickening and left basilar subsegmental atelectasis persists. Electronically signed by: Thee Hernandez M.D. 11/26/2016 4:08 PM Dictated Date/Time: 11/26/2016 4:06 PM
[2016-11-26 16:17] LABS: ALKALINE PHOSPHATASE 66 U/L (45-117); CKMB/CK RATIO 2.6 (0-3.0)
[2016-11-26 16:34] LABS: URINE APPEARANCE CLEAR (CLEAR); URINE BILIRUBIN NEG (NEG); URINE COLOR YELLOW; URINE NITRITE NEG (NEG); URINE SPECIFIC GRAVITY 1.014 (1.000-1.030); UROBILINOGEN NEG (NEG)
[2016-11-26 16:40] LABS: MANUAL MICROSCOPIC REQUIRED? NO; REVIEW REQ? NO
[2016-11-26 18:20] VITALS: BP 127/80; PULSE 81; O2SAT 98
--- NOTE | 2016-11-26 23:38 | EMERGENCY ROOM VISIT NOTE ---
History Report prepared by Tina: Umm Henderson Under the Supervision of: Dr. Phani Roblero M.D. First contact with patient: 15:11 Chief Complaint: IRREGULAR HEARTBEAT Stated Complaint: A-FIB Nursing Triage Summary: pt here with possible afib. pt sent from [facility] office. no sob or chest pain. History of Present Illness The patient is an 86 year old male who presents to the Emergency Room with complaints of a persistent irregular heartbeat that began prior to arrival. The patient states that recently he has been feeling increasingly weak. He notes that two days ago he was feeling weak, fatigued, and sluggish, but yesterday he felt okay. The patient states that he went to dr. Banda's office today for an appointment and was sent to the emergency department for further evaluation and treatment. Pt denies LOC, headache, fevers, chills, diaphoresis, visual changes, neck pain, chest pain, breathing difficulties, nausea, vomiting, abdominal pain, back pain, melena, hematochezia, urinary symptoms, numbness, lymphadenopathy, rash, or other complaints. Source of History: patient Onset: prior to arrival Position: other (global) Quality: other (irregular heartbeat) Timing: other (persistent) Associated Symptoms: + fatigue, + weakness Review of Systems See HPI for pertinent positives and negatives. A total of ten systems were reviewed and were otherwise negative. 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 (14) Transient ischemic attack Surgical Problems: (1) H/O nasal polypectomy (2) S/P cholecystectomy (3) Status post surgical removal of malignant neoplasm of skin Family History Cancer Social History Smoking Status: Never Smoker Alcohol Use: none Drug Use: none Marital Status: Housing Status: lives with family Occupation Status: retired Current/Historical Medications Scheduled Budesonide/Formoterol Fumarate (Symbicort 160/4.5 Inhaler), 2 PUFFS INH BID Calcium Carbonate-Vitamin D (Calcium 600 + D), 1 TAB PO BID Clopidogrel (Plavix), 75 MG PO DAILY Finasteride (Proscar), 5 MG PO DAILY Loratadine (Claritin), 10 MG PO DAILY Misc Natural Products (Osteo Bi-Flex Advanced Tr), 1 TAB PO BID Montelukast Sodium (Singulair), 10 MG PO QPM Multivitamin (Multivitamin), 1 TAB PO DAILY Pantoprazole (Pantoprazole Sodium), 40 MG PO BID Potassium Chloride (Micro-K Ext Rel), 10 MEQ PO DAILY Ranitidine HCl (Ranitidine HCl), 150 MG PO BID Terazosin Hcl (Hytrin), 2 MG PO HS Tiotropium [place] (Spiriva Handihaler), 1 CAP INH DAILY Verapamil Hcl (Verapamil Hcl Sr), 180 MG PO DAILY Scheduled PRN Acetaminophen (Tylenol), 1,000 MG PO Q4H PRN for Pain Aluminum Hydroxide-Mag Carb (Gaviscon), 5 ML PO TID PRN for Acid Reflux Ipratropium [place] (Atrovent 0.02% Soln), 2.5 ML NEB TID PRN for SOB/Wheezing Levalbuterol Hcl (Levalbuterol), 1 VIAL NEB Q6H PRN for Cough,SOB,Wheezing Levalbuterol Tartrate (Levalbuterol Tartrate Hfa), 2 PUFFS INH Q8 PRN for Wheezing Polyethylene Glycol 3350 (Miralax), 17 GM PO DAILY PRN for Constipation Allergies Coded Allergies: Aspirin (Verified Allergy, Severe, TIGHTNESS IN CHEST, 11/19/16) NSAIDs (Verified Allergy, Severe, TIGHTNESS IN THE CHEST, 11/19/16) Rofecoxib (Verified Allergy, Severe, TIGHTNESS IN CHEST, 11/19/16) Ibuprofen (Verified Allergy, Intermediate, Asthma Symptoms, 11/26/16) Physical Exam Vital Signs Date Time Temp Pulse Resp B/P Pulse Ox O2 Delivery O2 Flow Rate FiO2 11/26/16 18:20 81 18 127/80 98 11/26/16 17:00 77 20 121/70 96 Room Air 11/26/16 15:40 72 18 111/68 96 Room Air 79 115/73 81 123/84 11/26/16 15:18 73 11/26/16 15:15 100 Room Air 11/26/16 15:15 100 Room Air 11/26/16 15:05 80 16 128/78 95 Room Air 11/26/16 14:00 36.5 82 16 124/72 100 Room Air Physical Exam GENERAL: Awake, alert, well-appearing, in no distress HENT: Normocephalic, atraumatic. Oropharynx unremarkable. EYES: Normal conjunctiva. Sclera non-icteric. NECK: Supple. No nuchal rigidity. FROM. No JVD. RESPIRATORY: Clear to auscultation. CARDIAC: Regular rate, normal rhythm. Extremities warm and well perfused. Pulses equal. ABDOMEN: Soft, non-distended. No tenderness to palpation. No rebound or guarding. No masses. RECTAL: Deferred. MUSCULOSKELETAL: Chest examination reveals no tenderness. The back is symmetrical on inspection without obvious abnormality. There is no CVA tenderness to palpation. No joint edema. LOWER EXTREMITIES: Calves are equal size bilaterally and non-tender. No edema. No discoloration. NEURO: Normal sensorium. No sensory or motor deficits noted. SKIN: No rash or jaundice noted. Medical Decision & Procedures ER Provider Diagnostic Interpretation: X-ray: Per my interpretation, radiologist review. CHEST ONE VIEW PORTABLE HISTORY: EVALUATE WEAKNESS COMPARISON: Chest 11/19/2016. FINDINGS: Left-sided dual-chamber pacemaker. The heart remains mildly enlarged. No pleural effusions. No pneumothorax. Surgical clips within the right axilla. Diffuse interstitial thickening and bilateral hilar prominence persists. Linear density left lung base favor subsegmental atelectasis. IMPRESSION: No change from the prior study. Diffuse interstitial thickening and left basilar subsegmental atelectasis persists. Electronically signed by: Thee Hernandez M.D. 11/26/2016 4:08 PM Dictated Date/Time: 11/26/2016 4:06 PM Laboratory Results 11/26/16 15:25 Red Blood Count 4.54, Mean Corpuscular Volume 89.2, Mean Corpuscular Hemoglobin 30.0, Mean Corpuscular Hemoglobin Concent 33.6, Mean Platelet Volume 9.2, Neutrophils (%) (Auto) 51.3, Lymphocytes (%) (Auto) 29.7, Monocytes (%) (Auto) 9.0, Eosinophils (%) (Auto) 9.2, Basophils (%) (Auto) 0.2, Neutrophils # (Auto) 2.78, Lymphocytes # (Auto) 1.61, Monocytes # (Auto) 0.49, Eosinophils # (Auto) 0.50, Basophils # (Auto) 0.01 11/26/16 15:25 Test 11/26/16 15:25 11/26/16 15:42 White Blood Count 5.42 K/uL (4.8-10.8) Red Blood Count 4.54 M/uL (4.7-6.1) Hemoglobin 13.6 g/dL (14.0-18.0) Hematocrit 40.5 % (42-52) Mean Corpuscular Volume 89.2 fL (80-100) Mean Corpuscular Hemoglobin 30.0 pg (25-34) Mean Corpuscular Hemoglobin Concent 33.6 g/dl (32-36) Platelet Count 166 K/uL (130-400) Mean Platelet Volume 9.2 fL (7.4-10.4) Neutrophils (%) (Auto) 51.3 % Lymphocytes (%) (Auto) 29.7 % Monocytes (%) (Auto) 9.0 % Eosinophils (%) (Auto) 9.2 % Basophils (%) (Auto) 0.2 % Neutrophils # (Auto) 2.78 K/uL (1.4-6.5) Lymphocytes # (Auto) 1.61 K/uL (1.2-3.4) Monocytes # (Auto) 0.49 K/uL (0.11-0.59) Eosinophils # (Auto) 0.50 K/uL (0-0.5) Basophils # (Auto) 0.01 K/uL (0-0.2) RDW Standard Deviation 45.2 fL (36.4-46.3) RDW Coefficient of Variation 13.7 % (11.5-14.5) Immature Granulocyte % (Auto) 0.6 % Immature Granulocyte # (Auto) 0.03 K/uL (0.00-0.02) Prothrombin Time 10.6 SECONDS (9.0-12.0) Prothromb Time International Ratio 1.0 (0.9-1.1) Activated Partial Thromboplast Time 32.2 SECONDS (21.0-31.0) Partial Thromboplastin Ratio 1.2 Anion Gap 9.0 mmol/L (3-11) Est Creatinine Clear Calc Drug Dose 60.8 ml/min Estimated GFR () 70.1 Estimated GFR (Non- 60.5 BUN/Creatinine Ratio 19.2 (10-20) Calcium Level 8.5 mg/dl (8.5-10.1) Magnesium Level 2.3 mg/dl (1.8-2.4) Total Bilirubin 0.8 mg/dl (0.2-1) Direct Bilirubin 0.2 mg/dl (0-0.2) Aspartate Amino Transf (AST/SGOT) 18 U/L (15-37) Alanine Aminotransferase (ALT/SGPT) 24 U/L (12-78) Alkaline Phosphatase 66 U/L (45-117) Total Creatine Kinase 114 U/L (39-308) Creatine Kinase MB 3.0 ng/ml (0.5-3.6) Creatine Kinase MB Ratio 2.6 (0-3.0) Troponin I < 0.015 ng/ml (0-0.045) Total Protein 6.3 gm/dl (6.4-8.2) Albumin 3.1 gm/dl (3.4-5.0) Thyroid Stimulating Hormone (TSH) 2.630 uIu/ml (0.300-4.500) Urine Color YELLOW Urine Appearance CLEAR (CLEAR) Urine pH 8.0 (4.5-7.5) Urine Specific [place] 1.014 (1.000-1.030) Urine Protein NEG (NEG) Urine Glucose (UA) NEG (NEG) Urine Ketones NEG (NEG) Urine Occult Blood NEG (NEG) Urine Nitrite NEG (NEG) Urine Bilirubin NEG (NEG) Urine Urobilinogen NEG (NEG) Urine Leukocyte Esterase NEG (NEG) Laboratory results reviewed by me Medications Administered Medications (Trade) Dose Ordered Sig/Akash Route Start Time Stop Time Status Last Admin Dose Admin Sodium Chloride (Nss 1000ml) 1,000 ml @ 125 mls/hr Q8H STAT IV 11/26/16 15:11 11/26/16 18:36 DC 11/26/16 15:49 125 MLS/HR ECG Indication: other (irregular heartbeat) Rate (beats per minute): 81 Rhythm: other (paced rhythm) Findings: paced rhythm Change: Prior EKG showed sinus tachycardia with premature supraventricular complexes, right bundle branch block, left axis deviation, rate of 102 beats per minute ED Course 1511: Ordered Sodium Chloride 1000 ml @ 125 mls/hr IV. 1514: The patient was evaluated in room D3B. A complete history and physical exam was performed. 1805: I reevaluated the patient and was resting comfortably. I discussed the exam findings with him and I discussed the treatment plan. He verbalized complete understanding and agreement. He is ready to go home. Medical Decision Triage Nursing notes reviewed. The patient's presentation and history were concerning for weakness. Etiologies such as metabolic, infection, hypo/hyperglycemia, electrolyte abnormalities, cardiac sources, intracerebral event, toxicologic, neurologic, as well as others were entertained. The patient was evaluated. Clinically he looks well. His vital signs are stable. He was in a paced rhythm. He had an unremarkable CBC, urinalysis, chemistry panel, LFTs, TSH, and cardiac markers. The patient was given dinner. On reassessment he felt great. He desired to be discharged so he can go home and feed his he did not want to stay in the hospital. As he is doing exceptionally well at this time I discussed close outpatient follow-up with him. The patient was in agreement. If he worsens in any way he will come back to the Emergency Room for reevaluation.[email or web address]. By the evaluation outlined above other emergent etiologies such as those listed in the differential, as well as others, were deemed relatively unlikely. The patient was informed about the findings as listed above. All questions were answered and he was very pleased with the treatment. Return instructions were outlined and the patient was discharged in stable condition. The patient was referred to his PCP for follow-up for a recheck of the current condition. The chart was completed utilizing [employer] Speech voice recognition software. Grammatical errors, random word insertions, pronoun errors, and incomplete sentences are an occasional consequence of this system due to software limitations, ambient noise, and hardware issues. Any formal questions or concerns about the content, text, or information contained within the body of this dictation should be directly addressed to the physician for clarification. Impression Primary Impression: Atrial fibrillation Scribe Attestation The scribe's documentation has been prepared under my direction and personally reviewed by me in its entirety. I confirm that the note above accurately reflects all work, treatment, procedures, and medical decision making performed by me. Departure Information Dispostion Home / Self-Care Referrals Dionte Banda D.O. (PCP) Forms HOME CARE DOCUMENTATION FORM, IMPORTANT VISIT INFORMATION Patient Instructions My [facility] Additional Instructions Continue current medications. Rest. Drink plenty fluids. Follow-up with your polisher hand office tomorrow. Return to the ER for headache, passing out, difficulty breathing, fevers, chest pain, palpitations, numbness, tingling, worsening of your condition, or as needed.
[2016-12-01] MEDS ORDERED: HYT/2 PO (02:43)
[2016-12-01] MEDS ORDERED: VERA180C3 PO (02:58)
[2016-12-01] MEDS ORDERED: MULT-506 PO (03:13)
[2016-12-01] MEDS ORDERED: POLY335019 PO (10:29)
[2016-12-01] MEDS ORDERED: POTA10CA28 PO (10:34)
[2016-12-01] MEDS ORDERED: MONT1TAB3 PO (10:37)
[2016-12-01] MEDS ORDERED: SYMIN160 INH (10:37)
[2016-12-01] MEDS ORDERED: CALC-20 PO (10:40)
[2016-12-01] MEDS ORDERED: MISCTAB29 PO (10:40)
[2016-12-01] MEDS ORDERED: ACET-1256 PO (10:43)
[2016-12-01] MEDS ORDERED: CLOP1TAB15 PO (13:51)
[2016-12-01] MEDS ORDERED: RANI150T2 PO (16:14)
[2016-12-01] MEDS ORDERED: PRT/40 PO (16:14)
[2016-12-01] MEDS ORDERED: ATRINSX NEB (16:26)
[2016-12-01] MEDS ORDERED: LEVA1.255 NEB (16:26)
[2016-12-01] MEDS ORDERED: SPRIN/30 INH (18:57)
[2016-12-01] MEDS ORDERED: FINA5TAB PO (18:57)
[2016-12-01] MEDS ORDERED: LEVA45AE INH (18:58)
[2016-12-01] MEDS ORDERED: ALUMSUS21 PO (19:38)
[2016-12-03] MEDS ORDERED: LVQ500 PO (14:42)
[2016-12-03] MEDS ORDERED: PRED10TA PO (14:47)
== END 2016-11-26 18:22 | disposition home or self-care (01) ==
LOC: C.EDB 13:55 → C.EDD 18:22
DX: I48.91 Unspecified atrial fibrillation (principal); J45.909 Unspecified asthma, uncomplicated; N40.0 Benign prostatic hyperplasia without lower urinary tract symptoms; N18.3 Chronic kidney disease, stage 3 (moderate); K21.9 Gastro-esophageal reflux disease without esophagitis; K58.9 Irritable bowel syndrome, unspecified; Z95.0 Presence of cardiac pacemaker; M35.3 Polymyalgia rheumatica; Z86.73 Personal history of transient ischemic attack (TIA), and cerebral infarction without residual deficits; I49.5 Sick sinus syndrome; Z80.9 Family history of malignant neoplasm, unspecified; Z79.02 Long term (current) use of antithrombotics/antiplatelets; Z79.899 Other long term (current) drug therapy

== ENCOUNTER 2016-12-01 20:20 | Inpatient (IN) | payer OTHER, BC ==
[~2016-12-01] VITALS: Ht 188 cm; Wt 95.6 kg
[~2016-12-01 20:20] MED LIST changes: +ACET-1256 PO; +ALUMSUS21 PO; -ATRINSX INH; +ATRINSX NEB; -BENZ100C84 PO; +CALC-20 PO; +CLOP1TAB15 PO; +FINA5TAB PO; -FLUN0.02 NAE; +HYT/2 PO; +LEVA1.255 NEB; +LEVA45AE INH; -LVQ500 PO; +MISCTAB29 PO; +MONT1TAB3 PO; +MULT-506 PO; -PANT40TA PO; +POLY335019 PO; +POTA10CA28 PO; +PRT/40 PO; +RANI150T2 PO; +SPRIN/30 INH; +SYMIN160 INH; +VERA180C3 PO; -XPNINS125 INH
[2016-12-01] MEDS ORDERED: DIGO0.1219 PO (20:47)
--- NOTE | 2016-12-01 20:50 | DIAGNOSTIC IMAGING REPORT ---
CHEST ONE VIEW PORTABLE CLINICAL HISTORY: Respiratory distress. Dyspnea. COMPARISON STUDY: Chest radiograph November 26, 2016. FINDINGS: There is a dual lead left subclavian pacemaker. Mild cardiomegaly is unchanged. There is no pneumothorax or pleural effusion. Diffuse interstitial thickening persists. There are right axillary surgical clips. The appearance of the chest is unchanged. IMPRESSION: No change in appearance of the chest. Stable diffuse interstitial thickening. Electronically signed by: Damion Grigsby M.D. 12/01/2016 8:49 PM Dictated Date/Time: 12/01/2016 8:47 PM
[2016-12-01] MEDS ORDERED: ALBUT/IPRATROP 3MG/0.5MG NEB 3 ML VIAL INH STA ×2 (20:52→22:21)
[2016-12-01] MEDS ORDERED: CLR10 PO (21:06)
[2016-12-01 21:41] LABS: BASO % 0.3 %; BASO ABS # 0.02 K/uL (0-0.2); COMPLETE YES; EOS % 11.1 %; HEMATOCRIT 37.5 % (42-52); IG% 0.3 %; LYMPH % 29.4 %; LYMPH ABS # 1.91 K/uL (1.2-3.4); MEAN CELL VOLUME 88.2 fL (80-100); MEAN CORPUSCULAR HEMOGLOBIN 30.8 pg (25-34); MEAN CORPUSCULAR HGB CONC 34.9 g/dl (32-36); MEAN PLATELET VOLUME 9.1 fL (7.4-10.4); MONO % 12.6 %; NEUT % 46.3 %; PLATELET COUNT 208 K/uL (130-400); RED BLOOD COUNT 4.25 M/uL (4.7-6.1)
[2016-12-01 21:59] LABS: ALT/SGPT 22 U/L (12-78); BLOOD UREA NITROGEN 25 mg/dl (7-18); BUN/CREATININE RATIO 19.1 (10-20); CALCIUM 8.5 mg/dl (8.5-10.1); CARBON DIOXIDE 25 mmol/L (21-32); CHLORIDE 105 mmol/L (98-107); GLUCOSE 112 mg/dl (70-99); SODIUM 140 mmol/L (136-145)
[2016-12-01 22:04] LABS: ALB/GLOB RATIO 0.9 (0.9-2); ALKALINE PHOSPHATASE 75 U/L (45-117); AST/SGOT 21 U/L (15-37)
[2016-12-01] MEDS ORDERED: METHYLPREDNISOLONE 125 MG VIAL IV STA (22:21)
--- NOTE | 2016-12-01 22:59 | History and Physical ---
History & Physical Date & Time of Service: Dec 01, 2016 at 22:59 . Chief Complaint: cough, wheezing, SOB . Primary Care Physician: Dionte Banda D.OLincoln . History of Present Illness Source: patient, clinic records, hospital records 86 YO male followed by Dr. Dionte Banda for Family Medicine, Dr. Martinez for Pulmonary Medicine, and Dr. Souza for Cardiology. History of asthma, atrial fibrillation, and other problems outlined below. No longer anticoagulated due to 2 episodes of spontaneous hematomas. Developed cough, wheezing, and increasing dyspnea about 24 hours prior to admission. Cough productive of clear sputum. No fever, but some chills. Mild chest tightness. Usually uses nebs TID and O2 nocturnally. Tried extra nebs and O2 during the day without improvement. . 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 Family History FATHER Alzheimer's disease MOTHER Asthma Heart disease SISTER Heart disease SON Asthma Social History Smoking Status: Never Smoker Alcohol Use: occasionally Drug Use: none Marital Status: Housing status: lives with family Occupational Status: retired Immunizations History of Influenza Vaccine: Yes History of Tetanus Vaccine?: Yes Tetanus Immunization Date: Jan 04, 2009 History of Pneumococcal: Yes Pneumococcal Date: Apr 07, 2015 History of Hepatitis B Vaccine: No Multi-Drug Resistant Organisms History of MDRO: No Allergies Coded Allergies: Aspirin (Verified Allergy, Severe, TIGHTNESS IN CHEST, 11/19/16) NSAIDs (Verified Allergy, Severe, TIGHTNESS IN THE CHEST, 11/19/16) Rofecoxib (Verified Allergy, Severe, TIGHTNESS IN CHEST, 11/19/16) Ibuprofen (Verified Allergy, Intermediate, Asthma Symptoms, 11/26/16) Home Medications Scheduled Budesonide/Formoterol Fumarate (Symbicort 160/4.5 Inhaler), 2 PUFFS INH BID Calcium Carbonate-Vitamin D (Calcium 600 + D), 1 TAB PO BID Clopidogrel (Plavix), 75 MG PO DAILY Digoxin (Digox), 125 MCG PO DAILY Finasteride (Proscar), 5 MG PO DAILY Ipratropium [place] (Atrovent 0.02% Soln), 2.5 ML NEB TID Levalbuterol Hcl (Levalbuterol), 1 VIAL NEB TID Loratadine (Claritin), 10 MG PO DAILY Misc Natural Products (Osteo Bi-Flex Advanced Tr), 1 TAB PO BID Montelukast Sodium (Singulair), 10 MG PO QPM Multivitamin (Multivitamin), 1 TAB PO DAILY Pantoprazole (Pantoprazole Sodium), 40 MG PO BID Potassium Chloride (Micro-K Ext Rel), 10 MEQ PO DAILY Terazosin Hcl (Hytrin), 2 MG PO HS Tiotropium [place] (Spiriva Handihaler), 1 CAP INH DAILY Verapamil Hcl (Verapamil Hcl Sr), 180 MG PO DAILY Scheduled PRN Acetaminophen (Tylenol), 1,000 MG PO Q4H PRN for Pain Aluminum Hydroxide-Mag Carb (Gaviscon), 5 ML PO TID PRN for Acid Reflux Levalbuterol Tartrate (Levalbuterol Tartrate Hfa), 2 PUFFS INH Q8 PRN for Wheezing Polyethylene Glycol 3350 (Miralax), 17 GM PO DAILY PRN for Constipation Review of Systems Constitutional: + chills, No fever Eyes: No diplopia, No worsening of vision ENT: + hearing loss, + nasal symptoms, No sore throat Respiratory: + cough, + shortness of breath, + sputum, + wheezing Cardiovascular: + edema (mild), + palpitations (none recently), No chest pain Abdomen: No GI bleeding, No diarrhea, No nausea, No pain, No vomiting Musculoskeletal: + problem reported (chronic back pain) Genitourinary - Male: + urinary frequency, No dysuria, No hematuria Neurologic: No paralysis, No weakness Endocrine: No excessive thirst Hematologic / Lymphatic: + abnormal bleeding/bruising, No swollen lymph nodes Integumentary: No new/changing skin lesions, No rash Physical Exam Vital Signs Date Time Temp Pulse Resp B/P Pulse Ox O2 Delivery O2 Flow Rate FiO2 12/01/16 21:32 98 18 112/71 92 Nasal Cannula 3.0 12/01/16 21:04 92 Nasal Cannula 2.0 12/01/16 20:52 83 12/01/16 20:39 92 Nasal Cannula 2.0 12/01/16 20:34 88 Room Air 12/01/16 20:34 Room Air 12/01/16 20:22 36.6 88 28 124/71 91 Room Air General Appearance: WD/WN, + mild distress Head: normocephalic, atraumatic Eyes: normal inspection, PERRL, EOMI, sclerae normal ENT: normal ENT inspection, pharynx normal, + pertinent finding (hard of hearing) Neck: supple, no adenopathy, thyroid normal, no JVD, trachea midline Respiratory/Chest: no respiratory distress, no accessory muscle use, + rhonchi (scattered), + wheezing (diffuse, moderate) Cardiovascular: regular rate, rhythm, no gallop, no JVD, normal peripheral pulses, + extra beats, + pertinent finding (trace pretibial edema) Abdomen/GI: normal bowel sounds, non tender, soft, no organomegaly, no pulsatile mass Extremities/Musculoskelatal: no calf tenderness 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 (PERRL, EOMI, no dysarthria, no aphasia), alert, normal mood/affect, oriented x 3 Skin: normal color, warm/dry, no rash Lymphatic: no adenopathy Diagnostics Laboratory Results Results Past 24 Hours Test 12/01/16 20:27 12/01/16 21:00 12/01/16 21:18 Range/Units Influenza Type A Antigen Neg for Influ A NEG Influenza Type B Antigen Neg for Influ B NEG White Blood Count 6.50 4.8-10.8 K/uL Red Blood Count 4.25 4.7-6.1 M/uL Hemoglobin 13.1 14.0-18.0 g/dL Hematocrit 37.5 42-52 % Mean Corpuscular Volume 88.2 80-100 fL Mean Corpuscular Hemoglobin 30.8 25-34 pg Mean Corpuscular Hemoglobin Concent 34.9 32-36 g/dl Platelet Count 208 130-400 K/uL Mean Platelet Volume 9.1 7.4-10.4 fL Neutrophils (%) (Auto) 46.3 % Lymphocytes (%) (Auto) 29.4 % Monocytes (%) (Auto) 12.6 % Eosinophils (%) (Auto) 11.1 % Basophils (%) (Auto) 0.3 % Neutrophils # (Auto) 3.01 1.4-6.5 K/uL Lymphocytes # (Auto) 1.91 1.2-3.4 K/uL Monocytes # (Auto) 0.82 0.11-0.59 K/uL Eosinophils # (Auto) 0.72 0-0.5 K/uL Basophils # (Auto) 0.02 0-0.2 K/uL RDW Standard Deviation 43.9 36.4-46.3 fL RDW Coefficient of Variation 13.6 11.5-14.5 % Immature Granulocyte % (Auto) 0.3 % Immature Granulocyte # (Auto) 0.02 0.00-0.02 K/uL Sodium Level 140 136-145 mmol/L Potassium Level 4.0 3.5-5.1 mmol/L Chloride Level 105 98-107 mmol/L Carbon Dioxide Level 25 21-32 mmol/L Anion Gap 10.0 3-11 mmol/L Blood Urea Nitrogen 25 7-18 mg/dl Creatinine 1.30 0.60-1.40 mg/dl Est Creatinine Clear Calc Drug Dose 51.4 ml/min Estimated GFR () 57.3 Estimated GFR (Non- 49.4 BUN/Creatinine Ratio 19.1 10-20 Random Glucose 112 70-99 mg/dl Calcium Level 8.5 8.5-10.1 mg/dl Total Bilirubin 0.5 0.2-1 mg/dl Aspartate Amino Transf (AST/SGOT) 21 15-37 U/L Alanine Aminotransferase (ALT/SGPT) 22 12-78 U/L Alkaline Phosphatase 75 45-117 U/L Troponin I < 0.015 0-0.045 ng/ml Pro-B-Type Natriuretic Peptide 166 0-1800 pg/ml Total Protein 6.4 6.4-8.2 gm/dl Albumin 3.0 3.4-5.0 gm/dl Globulin 3.4 2.5-4.0 gm/dl Albumin/Globulin Ratio 0.9 0.9-2 Microbiology Results 12/01/16 Blood Culture, Received Pending 12/01/16 Blood Culture, Received Pending Diagnostic Radiology Chest x-ray reviewed by the undersigned and interpreted by Radiology: CHEST ONE VIEW PORTABLE FINDINGS: There is a dual lead left subclavian pacemaker. Mild cardiomegaly is unchanged. There is no pneumothorax or pleural effusion. Diffuse interstitial thickening persists. There are right axillary surgical clips. The appearance of the chest is unchanged. IMPRESSION: No change in appearance of the chest. Stable diffuse interstitial thickening. Electronically signed by: Damion Grigsby M.D. 12/01/2016 8:49 PM . EKG EKG performed at 20:34 reviewed and demonstrated atrial paced rhythm at 90 / minute, PVC's, RBBB, repolarization changes. . Impression Assessment and Plan EXACERBATION OF ASTHMA Exacerbation of asthma associated. Chest x-ray shows chronic interstitial disease, no apparent acute infiltrates. O2 sats as low as 88% in ED. Received IV methylprednisolone in ED. Start prednisone 40 mg PO daily. Start levofloxacin. Change ipratropium / levalbuterol nebs to QID. Consult Pulmonary Medicine. PAROXYSMAL AF Continue digoxin and verapamil. No anticoagulation due to spontaneous hematomas. HISTORY OF TIA Continue clopidogrel. CKD III Serum creatine 1.3. Follow. GERD Continue pantoprazole. BPH Continue finasteride and terazosin. VTE PROPHYLAXIS Moderate risk. No anticoagulants due to history of spontaneous hematomas. SCD's. Ambulate. RESUSCITATION STATUS Discussed with patient. He has a living will. He would like resuscitation attempted in the event of a cardiopulmonary arrest if there is a reasonable chance of a meaningful recovery, but does not want prolonged extraordinary measures if prognosis is poor. Therefore, code status = "Level 1" (full resuscitation). DISPOSITION Admit to Telemetry Unit due to PAF. Expected discharge to home. Family Medicine follow-up with Dr. Dionte Banda. Cardiology follow-up with Dr. Souza. Pulmonary follow-up with Dr. Martinez. . VTE Prophylaxis VTE Risk Assessment Done? Y/N: Yes Risk Level: Moderate Given or contraindicated: SCD's Additional Copies To Mynor Souza M.D.; Dionte Banda, D.O.; Dashawn Martinez MD
[2016-12-01] MEDS ORDERED: ACETAMINOPHEN 325 MG TAB PO PRN (23:00)
[2016-12-01 23:07] LABS: MANUAL MICROSCOPIC REQUIRED? NO; REVIEW REQ? NO; URINE APPEARANCE CLEAR (CLEAR); URINE BILIRUBIN NEG (NEG); URINE COLOR YELLOW; URINE NITRITE NEG (NEG); URINE SPECIFIC GRAVITY 1.014 (1.000-1.030); UROBILINOGEN NEG (NEG)
[2016-12-01] MEDS ORDERED: LEVAQUIN 500MG / 100ML D5W ONE (23:44)
[2016-12-02] VITALS (13 sets, daily range): BP systolic 118–155; BP diastolic 65–80; PULSE 60–99; TEMP 36.4–37; O2SAT 90–95; Ht 188 cm; Wt 95.6 kg
[2016-12-02] MEDS ORDERED: LEVAQUIN 500MG / 100ML D5W IV STA (00:08)
--- NOTE | 2016-12-02 00:55 | EMERGENCY ROOM VISIT NOTE ---
History Report prepared by Tina: Corby Pat Under the Supervision of: Dr. Phani Roblero M.D. First contact with patient: 20:27 Chief Complaint: RESPIRATORY PROBLEMS Stated Complaint: ASTHMA, RESTRICTED BREATHING History of Present Illness The patient is a 86 year old male who presents to the Emergency Room with complaints of worsening difficulty breathing that began to worsen throughout the day today. He denies any chest pains. The patient is on an "Asthma program" and home Nebulizer treatments. He usually has three nebulizer treatments per day , and has already had two today. The patient does wear home oxygen as needed, and when sleeping at night. His oxygen was not improving his condition today. No recent steroid use. Patient denies LOC, headache, fevers, chills, diaphoresis, visual changes, neck pain, nausea, vomiting, abdominal pain, back pain, melena, hematochezia, urinary symptoms, numbness, weakness, lymphadenopathy, rash, or other complaints. 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 A total of ten systems were reviewed and were otherwise negative. 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 (14) Transient ischemic attack Surgical Problems: (1) H/O nasal polypectomy (2) S/P cholecystectomy (3) Status post surgical removal of malignant neoplasm of skin Family History Cancer Social History Smoking Status: Never Smoker Alcohol Use: none Drug Use: none Marital Status: Housing Status: lives with family Occupation Status: retired Current/Historical Medications Scheduled Budesonide/Formoterol Fumarate (Symbicort 160/4.5 Inhaler), 2 PUFFS INH BID Calcium Carbonate-Vitamin D (Calcium 600 + D), 1 TAB PO BID Clopidogrel (Plavix), 75 MG PO DAILY Digoxin (Digox), 125 MCG PO DAILY Finasteride (Proscar), 5 MG PO DAILY Ipratropium Welch (Atrovent 0.02% Soln), 2.5 ML NEB TID Levalbuterol Hcl (Levalbuterol), 1 VIAL NEB TID Loratadine (Claritin), 10 MG PO DAILY Misc Natural Products (Osteo Bi-Flex Advanced Tr), 1 TAB PO BID Montelukast Sodium (Singulair), 10 MG PO QPM Multivitamin (Multivitamin), 1 TAB PO DAILY Pantoprazole (Pantoprazole Sodium), 40 MG PO BID Potassium Chloride (Micro-K Ext Rel), 10 MEQ PO DAILY Terazosin Hcl (Hytrin), 2 MG PO HS Tiotropium Welch (Spiriva Handihaler), 1 CAP INH DAILY Verapamil Hcl (Verapamil Hcl Sr), 180 MG PO DAILY Scheduled PRN Acetaminophen (Tylenol), 1,000 MG PO Q4H PRN for Pain Aluminum Hydroxide-Mag Carb (Gaviscon), 5 ML PO TID PRN for Acid Reflux Levalbuterol Tartrate (Levalbuterol Tartrate Hfa), 2 PUFFS INH Q8 PRN for Wheezing Polyethylene Glycol 3350 (Miralax), 17 GM PO DAILY PRN for Constipation Allergies Coded Allergies: Aspirin (Verified Allergy, Severe, TIGHTNESS IN CHEST, 11/19/16) NSAIDs (Verified Allergy, Severe, TIGHTNESS IN THE CHEST, 11/19/16) Rofecoxib (Verified Allergy, Severe, TIGHTNESS IN CHEST, 11/19/16) Ibuprofen (Verified Allergy, Intermediate, Asthma Symptoms, 11/26/16) Physical Exam Vital Signs Date Time Temp Pulse Resp B/P Pulse Ox O2 Delivery O2 Flow Rate FiO2 12/01/16 21:32 98 18 112/71 92 Nasal Cannula 3.0 12/01/16 21:04 92 Nasal Cannula 2.0 12/01/16 20:52 83 12/01/16 20:39 92 Nasal Cannula 2.0 12/01/16 20:34 88 Room Air 12/01/16 20:34 Room Air 12/01/16 20:22 36.6 88 28 124/71 91 Room Air Physical Exam GENERAL: Awake, alert, well-appearing, in no distress HENT: Normocephalic, atraumatic. Oropharynx unremarkable. EYES: Normal conjunctiva. Sclera non-icteric. NECK: Supple. No nuchal rigidity. FROM. No JVD. RESPIRATORY: Clear to auscultation. CARDIAC: Regular rate, normal rhythm. Extremities warm and well perfused. Pulses equal. ABDOMEN: Soft, non-distended. No tenderness to palpation. No rebound or guarding. No masses. RECTAL: Deferred. MUSCULOSKELETAL: Chest examination reveals no tenderness. The back is symmetrical on inspection without obvious abnormality. There is no CVA tenderness to palpation. No joint edema. LOWER EXTREMITIES: Calves are equal size bilaterally and non-tender. 1+ edema bilaterally. No discoloration. NEURO: Normal sensorium. No sensory or motor deficits noted. SKIN: No rash or jaundice noted. Medical Decision & Procedures ER Provider Diagnostic Interpretation: X ray results as stated below per my interpretation and radiologist interpretation. Other radiology results as stated below per my review and radiologist interpretation CHEST ONE VIEW PORTABLE CLINICAL HISTORY: Respiratory distress. Dyspnea. COMPARISON STUDY: Chest radiograph November 26, 2016. FINDINGS: There is a dual lead left subclavian pacemaker. Mild cardiomegaly is unchanged. There is no pneumothorax or pleural effusion. Diffuse interstitial thickening persists. There are right axillary surgical clips. The appearance of the chest is unchanged. IMPRESSION: No change in appearance of the chest. Stable diffuse interstitial thickening. Electronically signed by: Damion Grigsby M.D. 12/01/2016 8:49 PM Dictated Date/Time: 12/01/2016 8:47 PM Laboratory Results 12/01/16 21:18 Red Blood Count 4.25, Mean Corpuscular Volume 88.2, Mean Corpuscular Hemoglobin 30.8, Mean Corpuscular Hemoglobin Concent 34.9, Mean Platelet Volume 9.1, Neutrophils (%) (Auto) 46.3, Lymphocytes (%) (Auto) 29.4, Monocytes (%) (Auto) 12.6, Eosinophils (%) (Auto) 11.1, Basophils (%) (Auto) 0.3, Neutrophils # (Auto ) 3.01, Lymphocytes # (Auto) 1.91, Monocytes # (Auto) 0.82, Eosinophils # (Auto ) 0.72, Basophils # (Auto) 0.02 12/01/16 21:18 Test 12/01/16 21:00 12/01/16 21:18 12/01/16 22:57 Influenza Type A Antigen Neg for Influ A (NEG) Influenza Type B Antigen Neg for Influ B (NEG) White Blood Count 6.50 K/uL (4.8-10.8) Red Blood Count 4.25 M/uL (4.7-6.1) Hemoglobin 13.1 g/dL (14.0-18.0) Hematocrit 37.5 % (42-52) Mean Corpuscular Volume 88.2 fL (80-100) Mean Corpuscular Hemoglobin 30.8 pg (25-34) Mean Corpuscular Hemoglobin Concent 34.9 g/dl (32-36) Platelet Count 208 K/uL (130-400) Mean Platelet Volume 9.1 fL (7.4-10.4) Neutrophils (%) (Auto) 46.3 % Lymphocytes (%) (Auto) 29.4 % Monocytes (%) (Auto) 12.6 % Eosinophils (%) (Auto) 11.1 % Basophils (%) (Auto) 0.3 % Neutrophils # (Auto) 3.01 K/uL (1.4-6.5) Lymphocytes # (Auto) 1.91 K/uL (1.2-3.4) Monocytes # (Auto) 0.82 K/uL (0.11-0.59) Eosinophils # (Auto) 0.72 K/uL (0-0.5) Basophils # (Auto) 0.02 K/uL (0-0.2) RDW Standard Deviation 43.9 fL (36.4-46.3) RDW Coefficient of Variation 13.6 % (11.5-14.5) Immature Granulocyte % (Auto) 0.3 % Immature Granulocyte # (Auto) 0.02 K/uL (0.00-0.02) Anion Gap 10.0 mmol/L (3-11) Est Creatinine Clear Calc Drug Dose 51.4 ml/min Estimated GFR () 57.3 Estimated GFR (Non- 49.4 BUN/Creatinine Ratio 19.1 (10-20) Calcium Level 8.5 mg/dl (8.5-10.1) Total Bilirubin 0.5 mg/dl (0.2-1) Aspartate Amino Transf (AST/SGOT) 21 U/L (15-37) Alanine Aminotransferase (ALT/SGPT) 22 U/L (12-78) Alkaline Phosphatase 75 U/L (45-117) Troponin I < 0.015 ng/ml (0-0.045) Pro-B-Type Natriuretic Peptide 166 pg/ml (0-1800) Total Protein 6.4 gm/dl (6.4-8.2) Albumin 3.0 gm/dl (3.4-5.0) Globulin 3.4 gm/dl (2.5-4.0) Albumin/Globulin Ratio 0.9 (0.9-2) Urine Color YELLOW Urine Appearance CLEAR (CLEAR) Urine pH 7.0 (4.5-7.5) Urine Specific [place] 1.014 (1.000-1.030) Urine Protein NEG (NEG) Urine Glucose (UA) NEG (NEG) Urine Ketones NEG (NEG) Urine Occult Blood NEG (NEG) Urine Nitrite NEG (NEG) Urine Bilirubin NEG (NEG) Urine Urobilinogen NEG (NEG) Urine Leukocyte Esterase NEG (NEG) Laboratory results reviewed by me Medications Administered Medications (Trade) Dose Ordered Sig/Akash Route Start Time Stop Time Status Last Admin Dose Admin Albuterol/ Ipratropium (Duoneb) 3 ml NOW STAT INH 12/01/16 20:52 12/01/16 20:53 DC 12/01/16 21:03 3 ML Methylprednisolone Sodium Succinate (Solu-Medrol IV) 125 mg NOW STAT IV 12/01/16 22:21 12/01/16 22:22 DC 12/01/16 22:30 125 MG Albuterol/ Ipratropium (Duoneb) 3 ml NOW STAT INH 12/01/16 22:21 12/01/16 22:22 DC 12/01/16 22:30 3 ML ECG Indication: SOB/dyspnea Rate (beats per minute): 97 Rhythm: other (Paced Rhythm ) Findings: LAFB, RBBB, no acute ischemic change ED Course 2051: The patient was evaluated in room C9. A complete history and physical exam was performed. 2052: Ordered Duoneb 3 mL INH 3: I checked on the patient at this time, he is still requiring a nasal cannula and has a productive cough at this time. 2220: Ordered Duoneb 3 mL INH, Solu-Medrol 125 mg IV. 6: I discussed the case with Dr. Cash [facility] Hospitalist at this time , he will evaluate the patient for further treatment. Medical Decision Triage Nursing notes reviewed. The patient's presentation and history were concerning for breathing difficulties. Etiologies such as pneumonia, COPD, reactive airway disease, CHF, cardiac ischemia, pulmonary embolism, pneumothorax, musculoskeletal, infections, gastrointestinal, as well as others were entertained. The patient was evaluated. He had increased oxygen requirements today. He was given a DuoNeb. He had a significant cough. He was requiring 3.5-4 L of nasal cannula oxygen to maintain a saturation of 90% after nebulizer treatments. He was given Solu-Medrol and a second treatment. His CBC, chemistry panel, cardiac markers and influenza testing were negative. Chest imaging revealed chronic changes but no acute findings. Consultation was made with internal medicine. Patient was evaluated in the Emergency Room for further management. The chart was completed utilizing i[employer] Speech voice recognition software. Grammatical errors, random word insertions, pronoun errors, and incomplete sentences are an occasional consequence of this system due to software limitations, ambient noise, and hardware issues. Any formal questions or concerns about the content, text, or information contained within the body of this dictation should be directly addressed to the physician for clarification. Consults Time Called: 2219 Consulting Physician: Dr. Shailesh Omalley Returned Call: [phone] I discussed the case with Dr. Shailesh Omalley at this time, he will evaluate the patient for further treatment. Impression Primary Impression: Shortness of breath Additional Impression: Reactive airway disease Scribe Attestation The scribe's documentation has been prepared under my direction and personally reviewed by me in its entirety. I confirm that the note above accurately reflects all work, treatment, procedures, and medical decision making performed by me. Departure Information Dispostion Being Evaluated By Hospitalist Referrals Dionte Banda D.O. (PCP) Patient Instructions My [facility] Problem Qualifiers
[2016-12-02 06:39] LABS: BUN/CREATININE RATIO 18.9 (10-20); CALCIUM 8.8 mg/dl (8.5-10.1); CREATININE 1.2 mg/dl (0.60-1.40); POTASSIUM 3.8 mmol/L (3.5-5.1)
[2016-12-02] MEDS: LEVALBUTEROL 1.25MG/0.5ML NEB INH SCH ×4 (07:35→20:38)
[2016-12-02] MEDS: IPRATROPIUM BROMIDE NEB SOLN 0.02% 2.5 ML VIAL INH SCH ×4 (07:35→20:38)
[2016-12-02] MEDS: BUDESONIDE/FORMOTEROL FUMARATE 160/4.5 60 PUFFS/INHALER INH SCH ×2 (08:52→20:32)
[2016-12-02] MEDS: VERAPAMIL HCL 180 MG TABCR PO SCH (08:53)
[2016-12-02] MEDS: POTASSIUM CHLORIDE 10 MEQ TABCR PO SCH (08:53)
[2016-12-02] MEDS: LORATADINE 10 MG TAB PO SCH (08:53)
[2016-12-02] MEDS: MULTIVITAMIN TAB PO SCH (08:54)
[2016-12-02] MEDS: CLOPIDOGREL BISULFATE 75 MG TAB PO SCH (08:54)
[2016-12-02] MEDS: FINASTERIDE 5 MG TAB PO SCH (08:55)
[2016-12-02] MEDS: PANTOprazole SOD 40 MG TAB PO SCH ×2 (08:55→20:32)
[2016-12-02] MEDS ORDERED: TIOTROPIUM BROMIDE 5 PUFF/90 MCG INH INH SCH (09:00)
--- NOTE | 2016-12-02 12:51 | PULMONARY CONSULTATION ---
DATE OF CONSULTATION: 12/02/2016 TIME: 09:35 a.m. REPORT OF CONSULTATION: The patient was seen in room 283 bed 2. HISTORY OF PRESENT ILLNESS: He is a very pleasant 86-year-old male who came to the Emergency Room late in the day yesterday. He carries a history of asthma since age 60. He has had intermittent problems since then despite taking a fair amount of medications. His symptoms most acutely began on November 29. He started to get more and more congested in the chest. He was coughing a fair amount. His mucous was lee in color. He did not cough up any blood. Last evening, he presented to the Emergency Room with these complaints. He had had some chills. He did not have fevers or sweats. He was given some Solu-Medrol and breathing treatments and subsequently admitted. He feels quite a bit better this morning. He feels less congested. He did not fall asleep until almost 03:00 a.m. That was due to his cough, but after that, it seemed to improve a lot. The patient is on a number of medicines for his asthma including Symbicort, neb treatments with levalbuterol and Atrovent, Singulair, tiotropium, levalbuterol inhaler p.r.n., oxygen 2 liters at bedtime, and he has a vibration vest. He has had bronchoscopy done in December of 2013 and in January of 2015. He was being evaluated by Dr. Martinez for possible bronchoscopy in the near future. The patient has had a number of medical issues over the past couple of months. In September, he had an x-ray done because of some hypoxia and respiratory type of issues. The x-ray at that time did not show a definite pneumonic infiltrate. He had previously been hospitalized with pneumonia in July. On October 03 of this year, he came to the ER with an upper respiratory type of infection, but he was treated and released. On October 19, he was having a sleep study done. Relatively shortly in to the sleep night, he developed vomiting. He actually vomited 3 times in the sleep lab and was then transported to the Emergency Room. His sleep test, which was only done for about an hour and a half, showed what appeared to be severe central sleep apnea. The study was limited, however, and he states he is scheduled for a followup sleep study on December 24. He came to the Emergency Room on November 19 with palpitations and had atrial fibrillation. He again came to the ER on November 26 with atrial fibrillation. Overall, he looks well considering all of these issues he has had recently. PAST MEDICAL HISTORY: 1. Asthma as noted. 2. Paroxysmal atrial fibrillation. 3. Tachybrady syndrome. 4. BPH. 5. Chronic kidney disease, stage III. 6. GERD. 7. Irritable bowel syndrome. 8. Polymyalgia rheumatica. 9. Spontaneous hematomas 10. Transient ischemic attack. PAST SURGICAL HISTORY: 1. Cardiac ablation. 2. Pacemaker. 3. Nasal polyposis surgery in the 1970s. 4. Cholecystectomy. 5. Removal of skin cancer from the forearm. SOCIAL HISTORY: Tobacco never. ETOH - None. ALLERGIES: ASPIRIN AND NONSTEROIDALS, ALL CAUSE WORSENING OF HIS ASTHMA. 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 FAMILY HISTORY: Parents are . Father had Alzheimer disease. Mother had asthma and heart disease. Sister had heart disease. One son has asthma. REVIEW OF SYSTEMS: GENERAL: The patient's energy level is overall pretty good. He has some daytime tiredness, which would not be unexpected considering his multiple medical problems. Apparently, his son had noticed that he was stopping breathing when he was asleep. This was at a time when he was in the hospital. The patient's has medical illnesses and she sleeps in another room. NEUROLOGIC: No syncope or near syncope. OPHTHALMIC: No visual complaints. ENT: He does have nasal congestion. He is a mouth breather at night. CARDIAC: He has had recurring palpitations recently. He has not had true chest pain suggestive for ischemia recently. PULMONARY: As noted above. GASTROINTESTINAL: The patient has a history of reflux. He has been on a change of medicine recently for this. He was having pains in the right upper quadrant in the past month or so. These have resolved with changing his medications. GENITOURINARY: The patient has urinary frequency, especially at night time. Sometimes, he is up every hour to urinate. He does have BPH. He had been doing better, but when his blood pressure was found to be low, there was an adjustment in the dose of his terazosin and his urinary flow worsened after that. MUSCULOSKELETAL: Not currently complaining of myalgias or arthralgias. DERMATOLOGIC: No rash. ENDOCRINE: No lymphadenopathy. PHYSICAL EXAMINATION: GENERAL: The patient is a pleasant 86-year-old male who was cooperative, alert and oriented. He seems mentally quite sharp for his age. He is afebrile. VITAL SIGNS: Temperature is 36.6. I did not see any documented fevers since admission. HEENT: Pupils were reactive. Nares were mildly congested. Mouth exam shows that in the posterior pharynx on the right side, there is a black circular density. I could not tell if this is dried blood versus was it a dark skin lesion. NECK: Palpation of the neck reveals no lymph nodes or masses. CHEST: Normal expansion and development. Cardiac rate is 100 per minute. The rhythm is irregularly irregular. He appears to have PVCs. Lung mcknight revealed moderate rhonchi bilaterally. He looked comfortable. Respiratory rate was 18 breaths per minute. The saturation on room air reportedly was 90%, although he had oxygen on when I was seeing him. Blood pressure is 122/76. ABDOMEN: Soft and nontender. Bowel sounds were normal. No masses were palpable. EXTREMITIES: Shows edema of the right ankle. He states this has been somewhat of a chronic situation. The patient had a chest x-ray done, which showed what appeared to be some interstitial lung disease. There was a pacemaker in the left upper anterior chest. Mild cardiomegaly was noted. LABORATORY DATA: White count 6.5, hemoglobin 13.1, and platelets 208,000. Urinalysis was negative. Electrolytes show sodium 141, potassium 3.8, chloride 106, and bicarb 26. BUN is 23 with a creatinine of 1.2. Blood sugar this morning 155. Liver functions were normal. Troponin was negative. BNP was normal at 166. Flu test was negative. IMPRESSIONS: 1. Asthma with exacerbation. 2. Sleep apnea - possibly central sleep apnea based upon shortened study. 3. Rounded black density, right posterior pharynx - questionable tissue versus dried blood. 4. Atrial fibrillation. 5. Benign prostatic hypertrophy. COMMENTS AND RECOMMENDATIONS: The patient is clinically improved. He is still having moderate wheeze and rhonchi. He currently is on prednisone 40 mg per day. I believe he is tight enough that he may need another dose of IV steroid later in the day. We will order one additional dose of Solu-Medrol for later this afternoon or evening. He is on levofloxacin. He is pretty much on his usual breathing medicines. He does have significant BPH and he is on tiotropium. This may be significantly contributing to his urinary symptoms, especially at night. I suggest discontinuing the tiotropium for now and reassessing after he is off for several days to see if his urine flow improves. Apparently, Dr. Martinez is considering doing bronchoscopy. I think his overall health situation should be stabilized first. If indeed the patient has significant sleep apnea, he would be at increased risk for sedation issues. Hopefully, in the next few weeks as planned, he can get his sleep study done to better determine what type of sleep apnea he has and how severe. Thank you for asking me to assist in his care.
[2016-12-02] MEDS ORDERED: DIGOXIN 0.125 MG TAB PO SCH (16:00)
[2016-12-02] MEDS ORDERED: OPTIRAY 320 IV PRN (16:30)
--- NOTE | 2016-12-02 16:59 | DIAGNOSTIC IMAGING REPORT ---
CHEST CT WITH CONTRAST CT DOSE: 414.00 mGy.cm HISTORY: Cough HEMOPTYSIS TECHNIQUE: Multiaxial CT images of the chest were performed following the intravenous administration of contrast. COMPARISON: 05/09/2016 FINDINGS: Emphysematous and chronic fibrotic change throughout both hemithoraces. Focal right lower lobe parenchymal infiltrative process combined with a trace amount pleural fluid right lung base. Generally stable interstitial prominence the mid to upper lung regions bilaterally. Stable fibrotic changes pulmonary apices. Several small mediastinal and/or hilar nodes unchanged from the prior study. No evidence for progressive caity change. IMPRESSION: 1. Small parenchymal infiltrate posterior aspect right lower lobe combine with a trace amount pleural fluid right base. 2. These findings are superimposed upon chronic interstitial and emphysematous change. Electronically signed by: Phi Head M.D. 12/02/2016 4:58 PM Dictated Date/Time: 12/02/2016 4:55 PM
[2016-12-02] MEDS ORDERED: METHYLPREDNISOLONE IV 40 MG in SYRINGE 0 ML IV SCH (17:00)
[2016-12-02] MEDS: LEVOFLOXACIN 500 MG TAB PO SCH (17:09)
--- NOTE | 2016-12-02 20:21 | Progress Note ---
Internal Med Progress Note Date of Service: Dec 02, 2016. Provider Documentation: SUBJECTIVE: still having cough having chest tightness , audible wheeze wants to be home when possible as he is the primary care give of his - chronically ill evaluated by pulmonology earlier will need IV Solu -Medrol for bronchospasm ordered for CT chest with contrast -as pt reports of having blood in cough almost every week scheduled to have a bronchoscopy done by Dr Martinez next month OBJECTIVE: Vital Signs-as noted below Exam: General-elderly male, very pleasant , requiring 4 L 02 via nasal canula (on baseline 3 L 02) Eyes-sclera non icteric ENT-dark /blood clot appearing spot adhered to back oropharynx ,no surrounding erythema noted Neck-no JVD Lungs-diminished, poor air entry , with scatted wheeze Heart-regular Abdomen-soft, non tender Extremities-no lower ext edema, no rash or deformity Neuro-no focal neurological deficit, AAO x3 Lab data as noted below. ASSESSMENT & PLAN: COPD EXACERBATION Chest x-ray shows chronic interstitial disease, no apparent acute infiltrates. was O2 sats as low as 88% in ED. pt is on home 02 3L via NC -usually required at night recently been using it 31/03 due to SOB hypoxia improved , SPo2 95 % on 4 L 02 Received IV methylprednisolone in ED. will cont IV Solu Medrol for ongoing bronchospasm Levaquin empirically for bronchitis -changed to PO -complete 5 days course Pulmonology consulted appreciate input cont IV Solu -Medrol, Neb tx CT chest with contrast : 1. Small parenchymal infiltrate posterior aspect right lower lobe combine with a trace amount pleural fluid right base. 2. These findings are superimposed upon chronic interstitial and emphysematous change. -pt is schedule for out pt Bronchoscopy by Dr Martinez had recent sleep study -showed possible severe central sleep apnea - study was inconclusive as pt could not finish the whole allotted time due to nausea scheduled to have repeat sleep study in December 16 will benefit form CPAP at night ordered for nocturnal pulse oximetry PAROXYSMAL AF Continue digoxin and verapamil. No anticoagulation due to spontaneous hematomas. HISTORY OF TIA Continue clopidogrel. CKD III Serum creatine 1.3. Follow. GERD Continue pantoprazole. BPH Continue finasteride and terazosin. pt complain of ongoing urinary symptoms /nocturia UA negative Spiriva kept on hold added Flomax VTE PROPHYLAXIS Moderate risk. No anticoagulants due to history of spontaneous hematomas. SCD's. Ambulate. RESUSCITATION STATUS Full code DISPOSITION PT/OT eval requested will benefit from home PT /home health visiting nurse Social service consult requested Expected discharge to home. Family Medicine follow-up with Dr. Dionte Banda. Cardiology follow-up with Dr. Souza. Pulmonary follow-up with Dr. Martinez. DVT PROPHYLAXIS [] DISPOSITION [] Vital Signs: Date Time Temp Pulse Resp B/P Pulse Ox O2 Delivery O2 Flow Rate FiO2 12/03/16 08:17 36.4 88 16 131/69 95 Nasal Cannula 4.0 12/03/16 08:06 Nasal Cannula 3.0 12/03/16 07:51 82 20 95 Nasal Cannula 4.0 12/03/16 01:50 Nasal Cannula 3.0 12/03/16 00:05 Nasal Cannula 3.0 12/02/16 23:34 36.4 88 20 118/73 92 Nasal Cannula 4.0 12/02/16 20:38 82 20 95 Nasal Cannula 4.0 12/02/16 20:00 Nasal Cannula 2.0 12/02/16 20:00 36.5 83 18 129/75 93 Room Air 12/02/16 17:09 90 12/02/16 16:12 99 20 93 Nasal Cannula 4.0 12/02/16 16:00 Nasal Cannula 2.0 12/02/16 15:42 37.0 90 16 118/80 95 12/02/16 12:21 99 20 94 Nasal Cannula 4.0 12/02/16 12:00 Nasal Cannula 3.0 12/02/16 11:21 36.4 83 20 123/72 92 4.0 Lab Results: Results Past 24 Hours Test 12/03/16 05:17 12/03/16 08:05 Range/Units Sodium Level 141 136-145 mmol/L Potassium Level 3.7 3.5-5.1 mmol/L Chloride Level 106 98-107 mmol/L Carbon Dioxide Level 26 21-32 mmol/L Anion Gap 9.0 3-11 mmol/L Blood Urea Nitrogen 25 7-18 mg/dl Creatinine 1.10 0.60-1.40 mg/dl Est Creatinine Clear Calc Drug Dose 56.1 ml/min Estimated GFR () 70.1 Estimated GFR (Non- 60.5 BUN/Creatinine Ratio 22.8 10-20 Random Glucose 121 70-99 mg/dl Calcium Level 8.7 8.5-10.1 mg/dl Bedside Glucose 118 70-99 mg/dl
[2016-12-02] MEDS ORDERED: MONTELUKAST SOD 10 MG TAB PO SCH (21:00)
[2016-12-02] MEDS ORDERED: LEVOFLOXACIN / D5W 500 MG in PREMIXED IN D5W 100 ML IV SCH (23:00)
[2016-12-03 06:43] LABS: BUN/CREATININE RATIO 22.8 (10-20); CALCIUM 8.7 mg/dl (8.5-10.1); CREATININE 1.1 mg/dl (0.60-1.40); POTASSIUM 3.7 mmol/L (3.5-5.1)
[2016-12-03] MEDS: IPRATROPIUM BROMIDE NEB SOLN 0.02% 2.5 ML VIAL INH SCH ×2 (07:49→11:56)
[2016-12-03] MEDS: LEVALBUTEROL 1.25MG/0.5ML NEB INH SCH ×2 (07:49→11:56)
[2016-12-03 07:51] VITALS: PULSE 82; O2SAT 95
[2016-12-03] MEDS ORDERED: POLYETHYLENE (MIRALAX) 17 GM PACK PO SCH (08:00)
[2016-12-03 08:17] VITALS: BP_SYST 111; BP_SYST 131; BP_DIAS 69; BP_DIAS 71; PULSE 88; TEMP 36.4; O2SAT 91; O2SAT 95
[2016-12-03] MEDS: BUDESONIDE/FORMOTEROL FUMARATE 160/4.5 60 PUFFS/INHALER INH SCH (08:29)
[2016-12-03] MEDS: VERAPAMIL HCL 180 MG TABCR PO SCH (08:30)
[2016-12-03] MEDS: POTASSIUM CHLORIDE 10 MEQ TABCR PO SCH (08:31)
[2016-12-03] MEDS: MULTIVITAMIN TAB PO SCH (08:31)
[2016-12-03] MEDS: LORATADINE 10 MG TAB PO SCH (08:31)
[2016-12-03] MEDS: CLOPIDOGREL BISULFATE 75 MG TAB PO SCH (08:32)
[2016-12-03] MEDS: PANTOprazole SOD 40 MG TAB PO SCH (08:33)
[2016-12-03] MEDS: FINASTERIDE 5 MG TAB PO SCH (08:33)
--- NOTE | 2016-12-03 10:46 | PULMONARY PROGRESS NOTE ---
DATE: 12/03/2016 TIME: 10:00 a.m. SUBJECTIVE: The patient, generally, is feeling better. He feels less congested in the chest. He is not coughing up any phlegm. There has been no hemoptysis. He is not having any chest pains, chills, fevers or sweats. The patient's only complaint is that he was disturbed before 1:00 a.m. for a room change. He was ultimately moved and then moved again to a different room. He states he got [id number] sleep last night as a result of these moves. HISTORY OF PRESENT ILLNESS: The patient did have a CAT scan of the chest done yesterday afternoon. This showed a small parenchymal infiltrate in the right lower lobe posteriorly. I reviewed the CAT scan that had been done 11/08/2015 and another CAT scan on 05/09/2016. The patient has had some degree of chronic infiltrative change in the right lower lung field. It actually was more abnormal on the November 2015 CAT scan than it is currently, but the CAT scan done on 05/09/2016 was not quite as abnormal in the right lower lobe posteriorly as the current x-ray is. OBJECTIVE: GENERAL: The patient appears comfortable. He coughed just slightly during the exam. VITAL SIGNS: Temperature is 36.4. HEENT: Examination of the posterior pharynx reveals that the blackened area has partially resolved, suggesting it was clotted blood. Underneath, however, there is marked erythema and possibly a small area of ulceration on the mucosa. He has no symptoms. This, likely, should be followed up clinically as an outpatient. NECK: Palpation of the neck reveals no lymph nodes. HEART: The heart rate was 88 beats per minute. The rhythm was regular. LUNGS: The lung mcknight revealed very mild rhonchi today. It was reduced compared with yesterday. The respiratory rate was 20 breaths per minute. Saturation was 95% on 4 liters. Blood pressure this morning 131/69. EXTREMITIES: Showed mild edema in the right ankle region. He was trying to keep his legs elevated on a stool. LABORATORY DATA: Blood sugar this morning was 118. Electrolytes show sodium 141, potassium 3.7, chloride 106, bicarbonate 26. BUN 25 with a creatinine of 1.1. IMPRESSIONS: 1. Asthma with exacerbation. 2. Small infiltrate, right lower lobe posteriorly. 3. Sleep apnea. 4. Atrial fibrillation. 5. Mucosal abnormality in the pharynx on the right side. COMMENTS AND RECOMMENDATIONS: The patient is very anxious for discharge. He claims that he is essentially back to his baseline. He states he is never totally clear. He states that he has been managing his asthma for many years and he feels comfortable leaving with his current circumstances. He had no shortness of breath this morning, going to the bathroom and spending 30 minutes there, cleaning himself up. In light of this, I have no objection to discharge when desired. His steroid should be tapered gradually as an outpatient. I would suggest that his primary reevaluate the throat findings, just to make sure they have all cleared up. I would send the patient home with a total 7-day course of levofloxacin. The patient needs to have his followup sleep study done. 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 He has a scheduled date for that.
[2016-12-03] MEDS: LEVOFLOXACIN 500 MG TAB PO SCH (11:21)
[2016-12-03 11:33] VITALS: BP 134/86; PULSE 93; O2SAT 93
--- NOTE | 2016-12-03 14:39 | Progress Note ---
Subjective Date of Service: Dec 03, 2016. Subjective Pt evaluation today including: conversation w/ patient, physical exam, lab review, review of studies, review of inpatient medication list Saw/examined the patient in room 453 He is doing well, no chest pain Breathing status is at baseline He is eager to go home Problem List Medical Problems: (1) Acute respiratory distress Status: Acute (2) Atrial fibrillation with RVR Status: Acute (3) Atrial fibrillation with RVR Status: Acute (4) Atrial flutter Status: Acute (5) Atrial tachycardia Status: Acute (6) Bilateral pneumonia Status: Acute (7) Bilateral pneumonia Status: Acute (8) Cellulitis Status: Acute (9) Cough Status: Acute (10) Dizziness Status: Acute (11) Hematoma of left lower extremity Status: Acute (12) Hypoxia Status: Acute (13) Intractable pain Status: Acute (14) Intramuscular hematoma Status: Acute (15) Leg pain, right Status: Acute (16) Nausea vomiting and diarrhea Status: Acute (17) Palpitations Status: Acute (18) Reactive airway disease Status: Acute (19) Shortness of breath Status: Acute (20) Syncope Status: Acute (21) Viral upper respiratory illness Status: Acute Review of Systems Constitutional: No chills, No fever Respiratory: + shortness of breath (at baseline), + wheezing, No cough, No dyspnea at rest, No dyspnea on exertion, No hemoptysis, No sputum Cardiac: No chest pain, No edema, No palpitations Abdomen: No diarrhea, No nausea, No pain, No vomiting Medications Current Inpatient Medications Medications (Trade) Dose Ordered Sig/Akash Route Start Time Stop Time Status Last Admin Dose Admin Acetaminophen (Tylenol Tab) 650 mg Q4H PRN PO 12/01/16 23:00 12/31/16 22:59 12/03/16 00:16 650 MG Budesonide/ Formoterol Fumarate (Symbicort 160/ 4.5 Inh) 2 puffs BID INH 12/02/16 09:00 01/01/17 08:59 12/03/16 08:29 2 PUFFS Clopidogrel Bisulfate (plAVix TAB) 75 mg DAILY PO 12/02/16 09:00 01/01/17 08:59 12/03/16 08:32 75 MG Digoxin (Lanoxin Tab) 0.125 mg DAILY@1600 PO 12/02/16 16:00 01/01/17 15:59 12/02/16 17:09 0.125 MG Finasteride (Proscar Tab) 5 mg DAILY PO 12/02/16 09:00 01/01/17 08:59 12/03/16 08:33 5 MG Loratadine (Claritin Tab) 10 mg DAILY PO 12/02/16 09:00 01/01/17 08:59 12/03/16 08:31 10 MG Montelukast Sodium (Singulair Tab) 10 mg QPM PO 12/02/16 21:00 01/01/17 20:59 12/02/16 20:32 10 MG Multivitamins (Multivitamin Tab) 1 tab DAILY PO 12/02/16 09:00 01/01/17 08:59 12/03/16 08:31 1 TAB Pantoprazole Sodium (Protonix Tab) 40 mg BID PO 12/02/16 09:00 01/01/17 08:59 12/03/16 08:33 40 MG Potassium Chloride (Klor-Con M10) 10 meq DAILY PO 12/02/16 09:00 01/01/17 08:59 12/03/16 08:31 10 MEQ Terazosin HCl (Hytrin Cap) 2 mg HS PO 12/02/16 21:00 01/01/17 20:59 12/02/16 20:32 2 MG Verapamil HCl (Calan-Sr Tab) 180 mg QAM PO 12/02/16 09:00 01/01/17 08:59 12/03/16 08:30 180 MG Ipratropium Paige (Atrovent 0.02% 0.5MG/2.5ML Neb) 0.5 mg QIDR INH 12/02/16 08:00 01/01/17 07:59 12/03/16 07:49 0.5 MG Levalbuterol (Xopenex 1.25MG/ 0.5ML Neb) 1.25 mg QIDR INH 12/02/16 08:00 01/01/17 07:59 12/03/16 07:49 1.25 MG Prednisone (PredniSONE TAB) 40 mg DAILY PO 12/02/16 09:00 01/01/17 08:59 12/03/16 08:32 40 MG Levofloxacin (Levaquin Tab) 500 mg DAILY@11 PO 12/02/16 16:00 12/11/16 15:59 12/03/16 11:21 500 MG Ioversol (Optiray 320) 100 ml UD PRN IV 12/02/16 16:30 12/06/16 16:29 Polyethylene (Miralax Powder Packet) 17 gm DAILY PO 12/03/16 08:00 01/02/17 07:59 12/03/16 08:40 17 GM Tamsulosin HCl (Flomax Cap) 0.4 mg HS PO 12/03/16 22:00 01/02/17 21:59 Objective Vital Signs Date Time Temp Pulse Resp B/P Pulse Ox O2 Delivery O2 Flow Rate FiO2 12/03/16 08:17 36.4 88 16 131/69 95 Nasal Cannula 4.0 12/03/16 08:06 Nasal Cannula 3.0 12/03/16 07:51 82 20 95 Nasal Cannula 4.0 12/03/16 01:50 Nasal Cannula 3.0 12/03/16 00:05 Nasal Cannula 3.0 12/02/16 23:34 36.4 88 20 118/73 92 Nasal Cannula 4.0 12/02/16 20:38 82 20 95 Nasal Cannula 4.0 12/02/16 20:00 Nasal Cannula 2.0 12/02/16 20:00 36.5 83 18 129/75 93 Room Air 12/02/16 17:09 90 12/02/16 16:12 99 20 93 Nasal Cannula 4.0 12/02/16 16:00 Nasal Cannula 2.0 12/02/16 15:42 37.0 90 16 118/80 95 Physical Exam General Appearance: no apparent distress Respiratory/Chest: lungs clear, no respiratory distress, no accessory muscle use, + decreased breath sounds Cardiovascular: regular rate, rhythm, no edema, no murmur Abdomen: normal bowel sounds, non tender, soft Extremities: normal inspection, no pedal edema Neurologic/Psychiatric: no motor/sensory deficits, alert, normal mood/affect Skin: normal color Laboratory Results Last 24 Hours Test 12/03/16 05:17 12/03/16 08:05 12/03/16 11:51 Sodium Level 141 mmol/L Potassium Level 3.7 mmol/L Chloride Level 106 mmol/L Carbon Dioxide Level 26 mmol/L Anion Gap 9.0 mmol/L Blood Urea Nitrogen 25 mg/dl Creatinine 1.10 mg/dl Est Creatinine Clear Calc Drug Dose 56.1 ml/min Estimated GFR () 70.1 Estimated GFR (Non- 60.5 BUN/Creatinine Ratio 22.8 Random Glucose 121 mg/dl Calcium Level 8.7 mg/dl Bedside Glucose 118 mg/dl 100 mg/dl Assessment and Plan This is an 86 year old male with PMH of severe asthma, tachy-noble syndrome s/p PPM, chronic atrial fibrillation, no longer on anticoagulation due to hematoma formation, CKD stage 3 presents with shortness of breath Acute Asthma Exacerbation patient is doing much better, seems to be closer to baseline has been receiving IV steroids during stay here nebulizers as needed switch to oral steroids today appreciate pulmonary input can d/c home today with prednisone continue home inhalers continue nocturnal O2 and oxygen during the daytime as needed Right Lower Lobe Pneumonia CT shows a right lower lobe infiltrate plan is to d/c home with PO Levaquin x 7 days afebrile, no leukocytosis, hemodynamically stable Chronic Atrial Fibrillation continue digoxin and verapamil no anticoagulation secondary to previous bleeds Tachy-Noble Syndrome s/p pacemaker in situ Hx. of TIA continue Plavix CKD III Serum creatine 1.3. Follow. GERD Continue pantoprazole BPH Continue finasteride and terazosin. pt complain of ongoing urinary symptoms /nocturia UA negative Spiriva kept on hold added Flomax DVT ppx SCDs/ambulation FULL CODE
[2016-12-03] MEDS ORDERED: LVQ500 PO (14:42)
[2016-12-03] MEDS ORDERED: PRED10TA PO (14:47)
--- NOTE | 2016-12-03 14:51 | Discharge Instructions ---
Discharge Instructions Date of Service Dec 03, 2016. Admission Reason for Admission: Asthma Exacerbation, Hypoxia Discharge Discharge Diagnosis / Problem: Acute Asthma Exacerbation Discharge Goals Goal(s): Decrease discomfort, Improve function Activity Recommendations Activity Limitations: resume your previous activity . Instructions / Follow-Up Instructions / Follow-Up Please follow-up with your Dr. Quiñones on December 05 @ 11:00AM * You will be prescribed Levaquin (antibiotic) for 7 days for a pneumonia * You will be given prednisone (steroid) take 40mg on 12/04, take 30mg on 12/05, take 20mg on 12/06, take 10mg on 12/07 * primary care should check your throat for any ulcerations on your pharynx Current Hospital Diet Patient's current hospital diet: AHA Diet (Heart Healthy) Discharge Diet Recommended Diet: AHA Diet (Heart Healthy) Pending Studies Studies pending at discharge: no Medical Emergencies . Who to Call and When: Medical Emergencies: If at any time you feel your situation is an emergency, please call 911 immediately. . Non-Emergent Contact Non-Emergency issues call your: Primary Care Provider . . "Provider Documentation" section prepared by Jarrell Shaw. VTE Core Measure Inpt VTE Proph given/why not?: SCD's
--- NOTE | 2016-12-03 14:53 | Discharge Summary ---
Discharge Summary Date of Service Dec 03, 2016. Discharge Summary Admission Date: Dec 01, 2016 at 22:58 Discharge Date: Dec 03, 2016 Discharge Disposition: Home Principal Diagnosis: Acute Asthma Exacerbation Community Acquired Pneumonia Medication Reconciliation New Medications: Prednisone Tab (Prednisone) 10 Mg Tab 10 MG PO DAILY for 4 Days, #10 TAB Levofloxacin (Levofloxacin) 500 Mg Tab 500 MG PO DAILY@11 for 7 Days, #7 TAB Continued Medications: Acetaminophen (Tylenol) 500 Mg Tab 1000 MG PO Q4H PRN for Pain Aluminum Hydroxide-Mag Carb (Gaviscon) 1 Oliva Oliva 5 ML PO TID PRN for Acid Reflux Budesonide/Formoterol Fumarate (Symbicort 160/4.5 Inhaler) 120 Puffs/ Aero 2 PUFFS INH BID Calcium Carbonate-Vitamin D (Calcium 600 + D) 1 Tab Tab 1 TAB PO BID Clopidogrel (Plavix) 75 Mg Tab 75 MG PO DAILY, TAB Digoxin (Digox) 125 Mcg Tab 125 MCG PO DAILY Finasteride (Proscar) 5 Mg Tab 5 MG PO DAILY, TAB Ipratropium [facility] [facility] (Atrovent 0.02% Soln) 2.5 Ml Nebu 2.5 ML NEB TID Levalbuterol Hcl (Levalbuterol) 1.25 Mg/0.5 Ml Neb 1 VIAL NEB TID Levalbuterol Tartrate (Levalbuterol Tartrate Hfa) 45 Mcg/Act Aer 2 PUFFS INH Q8 PRN for Wheezing Loratadine (Claritin) 10 Mg Tab 10 MG PO DAILY Misc Natural Products (Osteo Bi-Flex Advanced Tr) 1 Tab Tab 1 TAB PO BID Montelukast Sodium (Singulair) 10 Mg Tab 10 MG PO QPM Multivitamin (Multivitamin) Tab 1 TAB PO DAILY, TAB Pantoprazole (Pantoprazole Sodium) 40 Mg Tab 40 MG PO BID Polyethylene Glycol 3350 (Miralax) 1 Pow Pow 17 GM PO DAILY PRN for Constipation Potassium Chloride (Micro-K Ext Rel) 10 Meq Capcr 10 MEQ PO DAILY, CAP Terazosin Hcl (Hytrin) 2 Mg Cap 2 MG PO HS, CAP Tiotropium [facility] (Spiriva Handihaler) 30 Puff/540 Mcg Aerp 1 CAP INH DAILY, INHALER Verapamil Hcl (Verapamil Hcl Sr) 180 Mg Cap 180 MG PO DAILY Admission Information HPI (per Admitting provider): 86 YO male followed by Dr. Dionte Banda for Family Medicine, Dr. Martinez for Pulmonary Medicine, and Dr. Souza for Cardiology. History of asthma, atrial fibrillation, and other problems outlined below. No longer anticoagulated due to 2 episodes of spontaneous hematomas. Developed cough, wheezing, and increasing dyspnea about 24 hours prior to admission. Cough productive of clear sputum. No fever, but some chills. Mild chest tightness. Usually uses nebs TID and O2 nocturnally. Tried extra nebs and O2 during the day without improvement. . Physical Exam (per Admitting): General Appearance: WD/WN, + mild distress Head: normocephalic, atraumatic Eyes: normal inspection, PERRL, EOMI, sclerae normal ENT: normal ENT inspection, pharynx normal, + pertinent finding (hard of hearing) Neck: supple, no adenopathy, thyroid normal, no JVD, trachea midline Respiratory/Chest: no respiratory distress, no accessory muscle use, + rhonchi (scattered), + wheezing (diffuse, moderate) Cardiovascular: regular rate, rhythm, no gallop, no JVD, normal peripheral pulses, + extra beats, + pertinent finding (trace pretibial edema) Abdomen/GI: normal bowel sounds, non tender, soft, no organomegaly, no pulsatile mass Extremities/Musculoskelatal: no calf tenderness Neurologic/Psych: mosquito sprayer II-XII nml as tested (PERRL, EOMI, no dysarthria, no aphasia), alert, normal mood/affect, oriented x 3 Skin: normal color, warm/dry, no rash Lymphatic: no adenopathy Hospital Course This is an 86 year old male with PMH of severe asthma, tachy-noble syndrome s/p PPM, chronic atrial fibrillation, no longer on anticoagulation due to hematoma formation, CKD stage 3 presents with shortness of breath Acute Asthma Exacerbation patient is doing much better, seems to be closer to baseline has been receiving IV steroids during stay here nebulizers as needed switch to oral steroids today appreciate pulmonary input can d/c home today with prednisone continue home inhalers continue nocturnal O2 and oxygen during the daytime as needed Right Lower Lobe Pneumonia CT shows a right lower lobe infiltrate plan is to d/c home with PO Levaquin x 7 days afebrile, no leukocytosis, hemodynamically stable Chronic Atrial Fibrillation continue digoxin and verapamil no anticoagulation secondary to previous bleeds Tachy-Noble Syndrome s/p pacemaker in situ Hx. of TIA continue Plavix CKD III Serum creatine 1.3. Follow. GERD Continue pantoprazole BPH Continue finasteride and terazosin. pt complain of ongoing urinary symptoms /nocturia UA negative Spiriva kept on hold added Flomax DVT ppx SCDs/ambulation FULL CODE Total time spent on discharge = 45 minutes This includes examination of the patient, discharge planning, medication reconciliation, and communication with other providers. Discharge Instructions Please follow-up with your Dr. Quiñones on December 05 @ 11:00AM * You will be prescribed Levaquin (antibiotic) for 7 days for a pneumonia * You will be given prednisone (steroid) take 40mg on 12/04, take 30mg on 12/05, take 20mg on 12/06, take 10mg on 12/07 * primary care should check your throat for any ulcerations on your pharynx
[2016-12-03 14:58] VITALS: BP 131/69; PULSE 88; TEMP 36.4; O2SAT 95
[2016-12-03 15:32] VITALS: O2SAT 92
[2016-12-03] MEDS ORDERED: TAMSULOSIN HCL 0.4 MG CAP PO SCH (22:00)
== END 2016-12-03 15:35 | disposition home or self-care (01) | DRG 203 ==
LOC: ENRESERVTM → ENRESERVDT → C.EDB 20:21 → C.MED 22:58 → C.MS4W 12-03 02:03
PROVIDERS: ADMIT Hospitalist; ATTEND Family Medicine
DX: J45.901 Unspecified asthma with (acute) exacerbation (principal); I48.0 Paroxysmal atrial fibrillation; N18.3 Chronic kidney disease, stage 3 (moderate); K21.9 Gastro-esophageal reflux disease without esophagitis; N40.0 Benign prostatic hyperplasia without lower urinary tract symptoms; I48.2 Chronic atrial fibrillation; Z95.0 Presence of cardiac pacemaker; Z86.73 Personal history of transient ischemic attack (TIA), and cerebral infarction without residual deficits; R09.02 Hypoxemia; G47.30 Sleep apnea, unspecified; M35.3 Polymyalgia rheumatica

== ENCOUNTER → 2016-12-24 | Outpatient (CLI) | payer OTHER, BC ==
[~2016-12-24] MED LIST changes: +ASTN; +BENZ100C7 PO; +BISA-16 PO; +CLR10 PO; +DIGO0.1219 PO; +DXY100 PO; +FLUN0.02 NAE; +GUAI1TAB75 PO; +LCTX PO; +LVQ500 PO; +NYSS5 PO; +OXGN; +PANT40TA2 PO; +POTA1CAP2 PO; +PRED10TA PO; +PRED20TA PO; +PRT/20 PO; -PRT/40 PO; -RANI150T2 PO; +SYMIN/8045 INH; +VERA240T20 PO
--- NOTE | 2016-12-25 06:21 | SPLIT NIGHT TECHNICIAN REPORT ---
[facility] Split Night Polysomnogram - Control Tower Operator Report Study date: 12/24/2016 Referring Physician: Letty Arce PA-C Name: HAYLEY HOLLOWAY Control Tower Operator: Keyur Mccarty [facility]. Date of : 1930 Height: 86 years, Height 6' 2" Sex: Male Weight: 211 lbs Age: 86 BMI: Medications: 27.09 PREDNISONE 10 MG, AZELASTINE HCL , SINGULAIR 10 MG, IPRATROPIUM BROMIDE, LEVALBUTEROL HCL, FINASTERIDE 5 MG, HYTRIN, PLAVIX 75 MG, FLUNISOLIDE, LORATADINE 10 MG, PROTONIX 40 MG, RANITIDINE HCL 150 MG, SPIRIVA HANDIHALER Patient History PATIENT RECENTLY HAD AN INCOMPLETE STUDY DUE TO ILLNESS. HE HAS HISTORY OF ATRIAL FIBRILLATION AND SYMPTOMS OF MARU. HE IS HERE TODAY FOR AN EVALUATION OF MARU. RM 8 Parameters Monitored NPSG: E1-M2, E2-M1, Fp1-M2, Fp2-M1, F3-M2, F4-M2, F4-M1, C3-M2, C4-M2, C4-M1, O1-M2, O2-M2, O2-M1, T3-M2, T4-M1, P3-M2, P4-M1, CHIN1, CHIN2, HR, EKG, Legs, PFLOW, SNOR, FLOW, CFLOW, Tidal Volume, THOR, ABDO, SpO2, PLTH, CPRESS, ETCO2 Wave, ETCO2, pH SLEEP SUMMARY DATA DIAGNOSTIC TREATMENT Lights Out: 10:25:47 PM 2:09:17 AM Lights On: 2:02:17 AM 5:27:47 AM Total Recording Time (TRT): 217.0 min. 199.0 min. Total Sleep Time (TST): 111.5 min. 170.0 min. NREM Time: 95.5 min. 132.0 min. REM Time: 16.0 min. 38.0 min. Sleep Period Time (SPT): 166.0 min. 188.0 min. Sleep Efficiency (SE): 52 % 86 % Sleep Latency: 50.5 min. 1.0 min. Arousal Index: 28.0 12.4 PAP Treatment Levels: 4, 5, 7, 9, 10, 12, 13 * Optimal Pressure(s) SLEEP STAGING DATA DIAGNOSTIC TREATMENT Duration (min) TST % Duration (min) TST % Stage Wake: 105.0 min. -- 29.0 min. -- WASO: 54.5 min. -- 18.0 min. -- NREM: 95.5 min. 86 % 132.0 min. 78 % Stage N1: 19.5 min. 17 % 15.5 min. 9 % Stage N2: 76.0 min. 68 % 116.5 min. 69 % Stage N3: 0.0 min. 0 % 0.0 min. 0 % REM: 16.0 min. 14 % 38.0 min. 22 % POSITIONAL DATA Event Count Index Event Count Index Supine: 14 10.2 36 21.7 Supine NREM: 14 10.2 21 22.4 Supine REM: N/A N/A 15 21 Non-Supine: 10 11.5 0 0.0 Non-Supine NREM: 1 1.9 0 0.0 Non-Supine REM: 9 30.0 0 0.0 AROUSAL SUMMARY DATA: Event Count Index Event Count Index Apnea Arousals: 0 1.1 3 6.4 Hypopnea Arousals: 1 0.5 0 0.0 Snore Arousals: 2 1.1 2 0.7 PLM Arousals: 11 5.9 5 1.8 Non-Specific Arousals: 36 19.4 23 8.1 Total Arousals: 52 28.0 35 12.4 MYOCLONUS (PLM) Event Count Index Event Count Index PLM: 88 47.4 61 21.5 PLM AROUSAL: 11 5.9 5 1.8 PLM W/O AROUSAL 88 47.4 56 19.8 PLM W/RESP EVENT 6 0.0 0 0.0 MYOCLONUS (PLM) Event Count Index Event Count Index LM: 1 5.4 37 13.1 LM AROUSAL: 1 0.5 1 0.4 LM W/O AROUSAL LM W/RESP EVENT LM NON SPECIFIC 80 43.0 89 31.4 HEART RATE DATA DIAGNOSTIC TREATMENT Sleep (bpm): 83 83 REM (bpm): 91 93 NREM (bpm): 92 92 Tachycardia Count: 0 0 Tachycardia Duration: 0.00 0 Bradycardia Count: 0 0 Bradycardia Duration: 0.00 0 DIAGNOSTIC PORTION TREATMENT PORTION RESPIRATORY DATA Event Count Index Event Count Index AHI: -- 10.8 -- 11.3 RDI: -- 12.9 -- 13 Obstructive Apnea: 1 0.5 18 6.4 Central Apnea: 1 0.5 0 0.0 Mixed Apnea: 0 0.0 0 0.0 Hypopnea: 18 9.7 14 4.9 RERA: 4 2.2 4 1.4 Total Apneas: 2 1.1 18 6.4 RESPIRATORY DATA REM NREM SLEEP REM NREM SLEEP Supine Position: Obstructive Apneas: N/A 1 1 2 16 18 Central Apneas: N/A 1 1 0 0 0 Mixed Apneas: N/A 0 0 0 0 0 Hypopneas: N/A 9 9 11 3 14 RERA N/A 3 3 2 2 4 Total Supine Events: N/A 14 14 15 21 36 Supine AHI: N/A 10.2 10.2 21 22.4 21.7 Supine RDI: N/A 13.0 13.0 24.0 24.7 24.4 REM NREM SLEEP REM NREM SLEEP Non-Supine Position: Obstructive Apneas: 0 0 0 0 0 0 Central Apneas: 0 0 0 0 0 0 Mixed Apneas: 0 0 0 0 0 0 Hypopneas: 8 1 9 0 0 0 RERA 1 0 1 0 0 0 Total Supine Events: 9 1 10 0 0 0 Supine AHI: 30.0 1.9 11.5 0.0 0.0 0.0 Supine RDI: 33.8 1.9 12.8 0.0 0.0 0.0 OXYGEN DESTAURATION DATA: Event Count Index Event Count Index REM Desaturations: 7 26.3 11 17.4 NREM Desaturations: 12 7.5 5 2.3 SNORE DATA DIAGNOSTIC TREATMENT Snore Time: 1.2 2:10:17 AM Snore TST%: 2 2 Snore Arousal Count: 2 2 Snore Arousal Index: 1.1 0.7 Desaturation Event Summary: Minimum %SpO2 Event Count Mean/Min/Max Duration(sec.) Desaturation Index % Time In Bed > 90 42 37.4 / 12.8 / 64.5 6.7 91.2 86 - 90 0 N/A 0.0 8.8 81 - 85 0 N/A 0.0 0.0 76 - 80 0 N/A 0.0 0.0 71 - 75 0 N/A 0.0 0.0 66 - 70 0 N/A 0.0 0.0 61 - 65 0 N/A 0.0 0.0 56 - 60 0 N/A 0.0 0.0 51 - 55 0 N/A 0.0 0.0 < 50 0 N/A 0.0 0.0 OXYGEN SATURATION DATA DIAGNOSTIC TREATMENT SpO2 Mean Sleep: 92 % 92 % SpO2 Mean REM: 91 % 93 % SpO2 Mean NREM: 92 % 92 % SpO2 Minimum Sleep: 87 % 87 % SpO2 Minimum REM: 87 % 87 % SpO2 Minimum NREM: 89 % 89 % Time Below 90% (TST): 3.2 1.5 Time Below 88% (TST): 0.1 0.1 Total REM NREM Awake <50% 0.0 min. 0.0 min. 0.0 min. 0.0 min. 51 - 60% 0.0 min. 0.0 min. 0.0 min. 0.0 min. 61 - 70% 0.0 min. 0.0 min. 0.0 min. 0.0 min. 71 - 80% 0.0 min. 0.0 min. 0.0 min. 0.0 min. 81 - 90% 36.3 min. 7.9 min. 18.8 min. 9.6 min. 91 - 100% 377.9 min. 46.1 min. 208.7 min. 123.1 min. Average 92 92 92 92 Minimum SpO2 87 87 89 89 Desaturation Event Index 6.1 20.0 4.5 3.1 # Desat. Events below 89% 1 1 N/A N/A Time(%) with Saturation below 89% 0.2 0.2 0.0 0.0 Time(min.) with Saturation below 89% 0.9 0.9 0.0 0.0 Recording Control Tower Operator Comments: Mr. Holloway slept in the right and supine positions. Irregular EKG noted. Leg movements noted. No bruxism noted. Snoring was noted and scored as a 2 on a scale of 1 through 5. (0=no snoring, 5=snoring loud enough to be heard through a closed door or down the [address]) At 2:02 am Mr. Holloway has met specific Split-Night criteria during the diagnostic portion of this study. CPAP was initiated at +4 CMH2O and up-titrated to a level of +13 CMH2O. A Applause Quattro full face size large full face mask was used during titration Mr. Holloway awoke to use the restroom 1 time during the night. Mr. Hollowya stated I slept as well as I do when I am in my own bed. The final report will be interpreted and signed by a sleep physician. The completed physician report will then be placed in the patient medical record. Therapy Event: Therapy (cm H20) 0 4 5 7 9 10 12 13 Total Time at Pressure (min.) 216.5 36.9 74.4 12.5 8.7 39.8 8.9 17.4 TST at Pressure (min.) 111.5 35.9 62.4 12.5 8.7 34.3 8.9 7.4 # Periods 1 1 1 1 1 1 1 1 Sleep Onset (min.) 50.5 1.0 0.0 0.0 0.0 0.0 0.0 0.0 REM Onset (min.) 169.5 N/A 52.6 N/A N/A 4.6 0.0 0.0 Sleep Efficiency % 51 97 83 100 100 86 100 42 Wakefulness (%) 48.5 2.7 16.1 0.0 0.0 13.8 0.0 57.6 Wakefulness (min.) 105.0 1.0 12.0 0.0 0.0 5.5 0.0 10.0 NREM 1 (%) 9.0 2.7 16.1 0.0 0.0 2.5 0.0 8.6 NREM 1 (min.) 19.5 1.0 12.0 0.0 0.0 1.0 0.0 1.5 NREM 2 (%) 35.1 94.6 67.1 100.0 100.0 17.8 0.0 20.1 NREM 2 (min.) 76.0 34.9 49.9 12.5 8.7 7.1 0.0 3.5 NREM 3 (%) 0.0 0.0 0.0 0.0 0.0 0.0 0.0 0.0 NREM 3 (min.) 0.0 0.0 0.0 0.0 0.0 0.0 0.0 0.0 REM (%) 7.4 0.0 0.7 0.0 0.0 65.9 100.0 13.6 REM (min.) 16.0 0.0 0.5 0.0 0.0 26.2 8.9 2.4 # Arousals 52 2 17 6 3 4 1 2 Arousal Index 28.0 3.3 16.4 28.8 20.7 7.0 6.7 16.3 # Snore 25 22 46 2 1 5 0 0 Snore Index 13.5 36.8 44.3 9.6 6.9 8.7 0.0 0.0 AHI 10.8 0.0 3.8 43.3 34.6 17.5 27.0 0.0 AHI Supine 10.2 N/A 14.3 43.3 34.6 17.5 27.0 0.0 AHI Non-Supine 11.5 0.0 0.0 N/A N/A N/A N/A N/A NREM AHI 7.5 0.0 3.9 43.3 34.6 7.4 N/A 0.0 REM AHI 30.0 N/A 0.0 N/A N/A 20.6 27.0 0.0 RDI 12.9 0.0 4.8 48.1 34.6 19.2 33.7 0.0 # Obstructive 1 0 4 7 5 2 0 0 # Central Ap 1 0 0 0 0 0 0 0 # Mixed 0 0 0 0 0 0 0 0 # Hypopneas 18 0 0 2 0 8 4 0 RERAS 4 0 1 1 0 1 1 0 Total Respiratory Events 24 0 5 10 5 11 5 0 Time Below SpO2 89.00% (min.) 0.6 0.0 0.0 0.0 0.0 0.3 0.0 0.0 Mean NREM SpO2 (%) 92 92 92 93 93 93 N/A 93 Mean REM SpO2 (%) 91 N/A 92 N/A N/A 93 93 94 Mean Sleep SpO2 (%) 92 92 92 93 93 93 93 93 Min NREM SpO2 (%) 89 90 89 90 91 90 N/A 92 Min REM SpO2 (%) 87 N/A 91 N/A N/A 87 91 91 Position Supine (min.) 64.5 0.0 16.8 12.5 8.7 34.3 8.9 7.4 Position Non-supine (min.) 47.0 35.9 45.6 0.0 0.0 0.0 0.0 0.0 LM Index Sleep 52.7 6.7 65.4 19.2 0.0 29.7 6.7 32.6 LM Index NREM 60.9 6.7 65.0 19.2 0.0 14.9 N/A 24.0 LM Index REM 3.8 N/A 120.0 N/A N/A 34.3 6.7 50.6 Mean Heart Rate (bpm) 83 85 85 83 82 81 81 81 Min Heart Rate (bpm) 54 59 54 56 53 51 55 56
--- NOTE | 2016-12-26 18:51 | POLYSOMNOGRAPH REPORT ---
CLINICAL DATA: An 86-year-old male with BMI of [address] Letty Arce, Dr. Dionte Banda and Dr. Martinez. He has a history of atrial fibrillation and symptoms of sleep apnea. This was a split night study. SLEEP ARCHITECTURE: For the diagnostic portion of the study, total sleep period was 166 minutes. Total sleep time was 111.5 minutes, divided between 95.5 minutes of non-REM sleep and 16 minutes of REM sleep. Sleep latency was delayed at 50.5 minutes. Sleep efficiency was reduced to 52%. Arousal index was 28. Sleep consisted of stage N1 17%, N2 68% and REM 14%. For the treatment portion of the study, total sleep period was 188 minutes. Total sleep time was 170 minutes divided between 132 minutes of non-REM sleep and 38 minutes of REM sleep. Sleep latency was 1 minute. Arousal index was 12.4. Sleep efficiency was 86. Sleep consisted of stage N1 9%, N2 69%, and REM 22%. AROUSAL DATA: Prior to treatment, 52 arousals were recorded for an index of 28 per hour. During treatment, 35 arousals were recorded for an index of 12.4 per hour. PERIODIC LIMB MOVEMENTS DATA: Prior to treatment, 88 limb movements were noted for an index of 47.4 with arousal index of 5.9 per hour. During treatment, 61 limb movements were noted for an index of 21.5 with arousal index of 1.8 per hour. ELECTROCARDIOGRAM: Heart rates ranged from 83-92 beats per minute. Atrial fibrillation was seen. RESPIRATORY DATA: Prior to treatment, mild sleep apnea was documented. The AHI was 10.8. There was 1 obstructive and 1 central apneic episode. There were 18 hypopneic episodes recorded. With treatment, the average AHI was 11.3. There were 18 obstructive apneic episodes and 14 hypopneic episodes recorded. OXIMETRY DATA: Nocturnal hypoxemia was seen prior to treatment. Oxygen dario was 87% during REM prior to treatment. Mean saturation for the treatment was 92%. ROVING WEIGHT GAUGER'S COMMENTS: The patient slept in the right and supine positions. Snoring was moderate, rated 2 on a scale of 1-5. At 2:02 a.m., he met split night criteria. A ResMed Mirage Quattro full face mask, size large was used. The patient was started on CPAP and titrated up the final pressure setting of 13 cm water pressure. At this final pressure setting, the patient slept for 7.4 minutes with an AHI of 0. IMPRESSION: Mild sleep apnea/hypopnea corrected with CPAP at 13 cm of water pressure, ResMed Mirage Quattro full face mask, size large from [employer]. RECOMMENDATIONS: The patient should be started on the above noted treatment regimen and seen back in followup within 90 days to document efficacy and compliance. MTDD
== END | disposition home or self-care (01) ==
LOC: C.NEUR 20:00
PROVIDERS: ATTEND Physician Assistant
DX: G47.30 Sleep apnea, unspecified (principal)

== ENCOUNTER 2017-01-20 10:38 | Emergency (ER) | payer OTHER, BC ==
[~2017-01-20] VITALS: Ht 195.6 cm; Wt 81.4 kg
[~2017-01-20 10:38] MED LIST changes: -ASTN; -BENZ100C7 PO; -BISA-16 PO; -DXY100 PO; -FLUN0.02 NAE; -GUAI1TAB75 PO; -LCTX PO; -NYSS5 PO; -OXGN; -POTA1CAP2 PO; -PRED10TA PO; -PRED20TA PO; -PRT/20 PO; -SYMIN/8045 INH; -VERA240T20 PO
[2017-01-20 10:46] VITALS: Ht 195.6 cm; Wt 81.4 kg
[2017-01-20 11:48] LABS: BASO % 0.5 %; BASO ABS # 0.03 K/uL (0-0.2); COMPLETE YES; HEMATOCRIT 39.8 % (42-52); IG% 0.5 %; LYMPH % 26.6 %; LYMPH ABS # 1.67 K/uL (1.2-3.4); MEAN CELL VOLUME 92.6 fL (80-100); MEAN CORPUSCULAR HEMOGLOBIN 30.5 pg (25-34); MEAN CORPUSCULAR HGB CONC 32.9 g/dl (32-36); MEAN PLATELET VOLUME 9.4 fL (7.4-10.4); NEUT % 55.4 %; PLATELET COUNT 219 K/uL (130-400); WHITE BLOOD COUNT 6.27 K/uL (4.8-10.8)
[2017-01-20 12:07] LABS: BUN/CREATININE RATIO 19.6 (10-20); C-REACTIVE PROTEIN 0.34 mg/dl (0-0.29); CREATININE 1.3 mg/dl (0.60-1.40); POTASSIUM 3.8 mmol/L (3.5-5.1); URIC ACID 5.9 mg/dl (2.6-7.2)
[2017-01-20 12:21] LABS: ANTI-STREP O SCR: 5YRS OR > NEG IU/ml (<200 IU)
--- NOTE | 2017-01-20 12:29 | DIAGNOSTIC IMAGING REPORT ---
RIGHT ANKLE MIN 3 VIEWS ROUTINE CLINICAL HISTORY: Right ankle swelling COMPARISON: 05/06/2016 DISCUSSION: There is progressive medial and lateral soft tissue swelling. There are no fractures. There are no subluxations. There are no destructive lesions. There are vascular calcifications. IMPRESSION: Progressive soft tissue swelling. No fractures are visualized. Electronically signed by: Myles Carbone M.D. 01/20/2017 12:28 PM Dictated Date/Time: 01/20/2017 12:27 PM
--- NOTE | 2017-01-20 12:48 | DIAGNOSTIC IMAGING REPORT ---
ULTRASOUND RIGHT VENOUS DOPP LOWER EXT UNILAT CLINICAL HISTORY: Right leg swelling COMPARISON STUDY: 07/11/2016 FINDINGS: Real-time and color flow Doppler imaging were performed. Flow was seen within the femoral, popliteal and calf veins with no intraluminal thrombus demonstrated. The saphenous vein is patent. IMPRESSION: No evidence of right lower extremity DVT Electronically signed by: Myles Carbone M.D. 01/20/2017 12:46 PM Dictated Date/Time: 01/20/2017 12:46 PM
[2017-01-20 12:51] LABS: LYME DISEASE AB IGG NEG (NEG)
[2017-01-20 12:52] LABS: LYME DISEASE AB IGM NEG (NEG)
[2017-01-20] MEDS ORDERED: ACETAMINOPHEN 500 MG TAB PO STA (14:36)
[2017-01-20] MEDS ORDERED: PRED20TA PO (14:54)
[2017-01-20 15:37] VITALS: BP 131/74; PULSE 77; TEMP 36.4; O2SAT 93
--- NOTE | 2017-01-20 17:12 | EMERGENCY ROOM VISIT NOTE ---
History Report prepared by Tina: Cass Candelario Under the Supervision of: Dr. Phani Roblero M.D. First contact with patient: 11:07 Chief Complaint: ANKLE PAIN Stated Complaint: SWOLLEN RIGHT ANKLE History of Present Illness The patient is a 86 year old male who presents to the Emergency Room with complaints of worsening right ankle pain since yesterday. The patient noticed swelling to his right ankle yesterday. He denies any injury to the ankle. He did not fall or twist his ankle. Today the swelling has worsened and spread into his calf. The patient reports pain that is worse with weight bearing. He rates his pain as a 4/10 in severity and describes it as an ache. He has never experienced symptoms like this before. He has not taken any medication for his symptoms. Pt denies LOC, headache, fevers, chills, diaphoresis, visual changes, neck pain, chest pain, breathing difficulties, nausea, vomiting, abdominal pain , back pain, melena, hematochezia, urinary symptoms, numbness, weakness, lymphadenopathy, rash, or other complaints. He denies any personal history of blood clots. Source of History: patient Onset: yesterday Position: ankle (right) Symptom Intensity: 4/10 Quality: ache Timing: worsening Modifying Factors (Worsening): other (weight bearing) Review of Systems See HPI for pertinent positives and negatives. A total of ten systems were reviewed and were otherwise negative. 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 (14) Transient ischemic attack Surgical Problems: (1) H/O nasal polypectomy (2) S/P cholecystectomy (3) Status post surgical removal of malignant neoplasm of skin Family History Alzheimer's disease FATHER Asthma MOTHER SON Heart disease MOTHER SISTER Social History Smoking Status: Never Smoker Alcohol Use: none Drug Use: none Marital Status: Housing Status: lives with family Occupation Status: retired Current/Historical Medications Scheduled Budesonide/Formoterol Fumarate (Symbicort 160/4.5 Inhaler), 2 PUFFS INH BID Calcium Carbonate-Vitamin D (Calcium 600 + D), 1 TAB PO BID Clopidogrel (Plavix), 75 MG PO DAILY Digoxin (Digox), 125 MCG PO DAILY Finasteride (Proscar), 5 MG PO DAILY Ipratropium [place] (Atrovent 0.02% Soln), 2.5 ML NEB TID Levalbuterol Hcl (Levalbuterol), 1 VIAL NEB TID Loratadine (Claritin), 10 MG PO DAILY Misc Natural Products (Osteo Bi-Flex Advanced Tr), 1 TAB PO BID Montelukast Sodium (Singulair), 10 MG PO QPM Multivitamin (Multivitamin), 1 TAB PO DAILY Pantoprazole (Pantoprazole Sodium), 40 MG PO BID Potassium Chloride (Micro-K Ext Rel), 10 MEQ PO DAILY Prednisone (Prednisone), 20 MG PO DAILY Terazosin Hcl (Hytrin), 2 MG PO HS Verapamil Hcl (Verapamil Hcl Sr), 180 MG PO DAILY Scheduled PRN Acetaminophen (Tylenol), 1,000 MG PO Q4H PRN for Pain Aluminum Hydroxide-Mag Carb (Gaviscon), 5 ML PO TID PRN for Acid Reflux Levalbuterol Tartrate (Levalbuterol Tartrate Hfa), 2 PUFFS INH Q8 PRN for Wheezing Polyethylene Glycol 3350 (Miralax), 17 GM PO DAILY PRN for Constipation Allergies Coded Allergies: Aspirin (Verified Allergy, Severe, TIGHTNESS IN CHEST, 11/19/16) NSAIDs (Verified Allergy, Severe, TIGHTNESS IN THE CHEST, 11/19/16) Rofecoxib (Verified Allergy, Severe, TIGHTNESS IN CHEST, 11/19/16) Ibuprofen (Verified Allergy, Intermediate, Asthma Symptoms, 11/26/16) Physical Exam Vital Signs Date Time Temp Pulse Resp B/P Pulse Ox O2 Delivery O2 Flow Rate FiO2 01/20/17 15:37 36.4 77 18 131/74 93 01/20/17 15:03 77 18 131/74 93 Room Air 01/20/17 13:19 76 18 127/71 01/20/17 10:46 36.4 88 18 122/59 94 Physical Exam GENERAL: Awake, alert, well-appearing, in no distress HENT: Normocephalic, atraumatic. Oropharynx unremarkable. EYES: Normal conjunctiva. Sclera non-icteric. NECK: Supple. No nuchal rigidity. FROM. No JVD. RESPIRATORY: Clear to auscultation. CARDIAC: Regular rate, normal rhythm. Extremities warm and well perfused. Pulses equal. ABDOMEN: Soft, non-distended. No tenderness to palpation. No rebound or guarding. No masses. MUSCULOSKELETAL: Chest examination reveals no tenderness. LOWER EXTREMITIES: Right leg is larger than the left, 2+ pedal and ankle edema into the lower rose, mild calf tenderness. No discoloration. NEURO: Normal sensorium. No sensory or motor deficits noted. SKIN: No rash or jaundice noted. Medical Decision & Procedures ER Provider Diagnostic Interpretation: Radiology results as stated below per my review and radiologist interpretation: ULTRASOUND RIGHT VENOUS DOPP LOWER EXT UNILAT CLINICAL HISTORY: Right leg swelling COMPARISON STUDY: 07/11/2016 FINDINGS: Real-time and color flow Doppler imaging were performed. Flow was seen within the femoral, popliteal and calf veins with no intraluminal thrombus demonstrated. The saphenous vein is patent. IMPRESSION: No evidence of right lower extremity DVT Electronically signed by: Myles Carbone M.D. 01/20/2017 12:46 PM Dictated Date/Time: 01/20/2017 12:46 PM RIGHT ANKLE MIN 3 VIEWS ROUTINE CLINICAL HISTORY: Right ankle swelling COMPARISON: 05/06/2016 DISCUSSION: There is progressive medial and lateral soft tissue swelling. There are no fractures. There are no subluxations. There are no destructive lesions. There are vascular calcifications. IMPRESSION: Progressive soft tissue swelling. No fractures are visualized. Electronically signed by: Myles Carbone M.D. 01/20/2017 12:28 PM Dictated Date/Time: 01/20/2017 12:27 PM Laboratory Results 01/20/17 11:20 Red Blood Count 4.30, Mean Corpuscular Volume 92.6, Mean Corpuscular Hemoglobin 30.5, Mean Corpuscular Hemoglobin Concent 32.9, Mean Platelet Volume 9.4, Neutrophils (%) (Auto) 55.4, Lymphocytes (%) (Auto) 26.6, Monocytes (%) (Auto) 10.0, Eosinophils (%) (Auto) 7.0, Basophils (%) (Auto) 0.5, Neutrophils # (Auto ) 3.47, Lymphocytes # (Auto) 1.67, Monocytes # (Auto) 0.63, Eosinophils # (Auto ) 0.44, Basophils # (Auto) 0.03 01/20/17 11:20 Test 01/20/17 11:20 White Blood Count 6.27 K/uL (4.8-10.8) Red Blood Count 4.30 M/uL (4.7-6.1) Hemoglobin 13.1 g/dL (14.0-18.0) Hematocrit 39.8 % (42-52) Mean Corpuscular Volume 92.6 fL (80-100) Mean Corpuscular Hemoglobin 30.5 pg (25-34) Mean Corpuscular Hemoglobin Concent 32.9 g/dl (32-36) Platelet Count 219 K/uL (130-400) Mean Platelet Volume 9.4 fL (7.4-10.4) Neutrophils (%) (Auto) 55.4 % Lymphocytes (%) (Auto) 26.6 % Monocytes (%) (Auto) 10.0 % Eosinophils (%) (Auto) 7.0 % Basophils (%) (Auto) 0.5 % Neutrophils # (Auto) 3.47 K/uL (1.4-6.5) Lymphocytes # (Auto) 1.67 K/uL (1.2-3.4) Monocytes # (Auto) 0.63 K/uL (0.11-0.59) Eosinophils # (Auto) 0.44 K/uL (0-0.5) Basophils # (Auto) 0.03 K/uL (0-0.2) RDW Standard Deviation 49.4 fL (36.4-46.3) RDW Coefficient of Variation 14.6 % (11.5-14.5) Immature Granulocyte % (Auto) 0.5 % Immature Granulocyte # (Auto) 0.03 K/uL (0.00-0.02) Erythrocyte Sedimentation Rate 16 mm/hr (0-14) Anion Gap 8.0 mmol/L (3-11) Est Creatinine Clear Calc Drug Dose 47.0 ml/min Estimated GFR () 57.3 Estimated GFR (Non- 49.4 BUN/Creatinine Ratio 19.6 (10-20) Uric Acid 5.9 mg/dl (2.6-7.2) Calcium Level 9.0 mg/dl (8.5-10.1) Total Bilirubin 0.7 mg/dl (0.2-1) Direct Bilirubin 0.1 mg/dl (0-0.2) Aspartate Amino Transf (AST/SGOT) 20 U/L (15-37) Alanine Aminotransferase (ALT/SGPT) 25 U/L (12-78) Alkaline Phosphatase 58 U/L (45-117) C-Reactive Protein 0.34 mg/dl (0-0.29) Total Protein 6.2 gm/dl (6.4-8.2) Albumin 3.1 gm/dl (3.4-5.0) Thyroid Stimulating Hormone (TSH) 3.000 uIu/ml (0.300-4.500) Lyme Disease IgG Antibody NEG (NEG) Lyme Disease IgM Antibody NEG (NEG) Anti-Streptolysin O Antibody Screen NEG IU/ml (<200 IU) Laboratory results reviewed by me Medications Administered Medications (Trade) Dose Ordered Sig/Akash Route Start Time Stop Time Status Last Admin Dose Admin Acetaminophen (Tylenol Tab) 1,000 mg NOW STAT PO 01/20/17 14:36 01/20/17 14:37 DC 01/20/17 14:59 1,000 MG Prednisone (PredniSONE TAB) 20 mg NOW STAT PO 01/20/17 14:36 01/20/17 14:37 DC 01/20/17 14:59 20 MG ED Course 1117: The patient was evaluated in room B10. A complete history and physical exam was performed. 1345: I reassessed the patient and he is doing well. 1430: I reassessed the patient at this time. He is feeling better and resting comfortably. I discussed the results and treatment plan with the patient. I answered all pertaining questions that he had. He expressed understanding and verbalized agreement. The patient will be discharged home. Case management is going to get him an appointment with his PCP. 1436: Prednisone 20 mg PO, Tylenol 1000 mg PO Medical Decision Triage Nursing notes reviewed. The patient's presentation and history were concerning for ankle swelling. Etiologies such as DVT, joint effusion, infection, trauma, muscular, lymphedema , idiopathic, CHF, as well as others were entertained. The patient was evaluated. He had swelling with no signs of infection on physical examination. He has no breathing difficulties and this is unilateral swelling. Benign abdominal examination. X-ray imaging shows soft tissue swelling. Ultrasound imaging showed no evidence of DVT. He had an unremarkable CBC, ESR, chemistry panel, LFTs, CRP, Lyme test, ASO. I suspect that he has some dependent edema and a mild arthritis present. There is no indication for a joint tap at this point in time. He has no fever. I discussed conservative management. He cannot take NSAIDs but can take prednisone. He will be placed on a low-dose short course of prednisone and use Tylenol. The patient was given a compressive stocking. Case management did meet with the patient to set up an appointment with his primary care physician tomorrow for reassessment. If he worsens in any way he will be back to the Emergency Room for reevaluation. The patient felt very comfortable with this plan. He has a cane and walker at home as well. I gave my usual and customary discussion regarding this issue. By the evaluation outlined above other emergent etiologies such as those listed in the differential, as well as others, were deemed relatively unlikely. The patient was informed about the findings as listed above. All questions were answered and he was very pleased with the treatment. Return instructions were outlined and the patient was discharged in stable condition. The patient was referred to his PCP for follow-up tomorrow for a recheck of the current condition. The chart was completed utilizing [employer] Speech voice recognition software. Grammatical errors, random word insertions, pronoun errors, and incomplete sentences are an occasional consequence of this system due to software limitations, ambient noise, and hardware issues. Any formal questions or concerns about the content, text, or information contained within the body of this dictation should be directly addressed to the physician for clarification. Impression Primary Impression: Right ankle pain Additional Impression: Arthritis Scribe Attestation The scribe's documentation has been prepared under my direction and personally reviewed by me in its entirety. I confirm that the note above accurately reflects all work, treatment, procedures, and medical decision making performed by me. Departure Information Dispostion Home / Self-Care Prescriptions Prednisone (Prednisone) 20 Mg Tab 20 MG PO DAILY for 4 Days, #4 TAB Prov: Phani Roblero MD 01/20/17 Referrals Dionte Banda D.[place] (PCP) Forms HOME CARE DOCUMENTATION FORM, IMPORTANT VISIT INFORMATION Patient Instructions My [facility] Additional Instructions Use the compression stocking daily until the swelling resolves. Elevate your leg as much as possible. Light activity and the use of a cane is recommended. Tylenol: Take 1000 mg every 6 hours as needed for pain. Do not take more than 3000 mg in a 24 hour period. Prednisone 20 mg: Once daily until the prescription is finished. Follow-up with Dr. Banda tomorrow at 3:10 PM for a recheck. Return to the ER immediately for spreading redness, fevers, severe pain, or as needed. Problem Qualifiers Primary Impression: Right ankle pain Chronicity: acute Qualified Codes: M25.571 - Pain in right ankle and joints of right foot
[2017-07-20] MEDS ORDERED: BENZ100C7 PO (08:59)
[2017-07-20] MEDS ORDERED: PRED10TA PO (08:59)
[2017-07-20] MEDS ORDERED: NYSS5 PO (08:59)
== END 2017-01-20 15:38 | disposition home or self-care (01) ==
LOC: C.EDB 11:33
DX: M25.571 Pain in right ankle and joints of right foot (principal); M17.9 Osteoarthritis of knee, unspecified; J45.40 Moderate persistent asthma, uncomplicated; N40.0 Benign prostatic hyperplasia without lower urinary tract symptoms; N18.3 Chronic kidney disease, stage 3 (moderate); K21.9 Gastro-esophageal reflux disease without esophagitis; K58.9 Irritable bowel syndrome, unspecified; Z95.0 Presence of cardiac pacemaker; I48.0 Paroxysmal atrial fibrillation; M35.3 Polymyalgia rheumatica; Z87.01 Personal history of pneumonia (recurrent); Z86.73 Personal history of transient ischemic attack (TIA), and cerebral infarction without residual deficits; Z90.49 Acquired absence of other specified parts of digestive tract; Z85.828 Personal history of other malignant neoplasm of skin; Z82.5 Family history of asthma and other chronic lower respiratory diseases; Z79.01 Long term (current) use of anticoagulants; Z79.899 Other long term (current) drug therapy; R60.0 Localized edema

== ENCOUNTER 2017-02-17 18:32 | Emergency (ER) | payer OTHER, BC ==
[~2017-02-17] VITALS: Ht 195.6 cm; Wt 83.2 kg
[~2017-02-17 18:32] MED LIST changes: -LVQ500 PO; -SPRIN/30 INH
[2017-02-17 18:38] VITALS: TEMP 36.7; Ht 195.6 cm; Wt 83.2 kg
[2017-02-17] MEDS ORDERED: ALBUT/IPRATROP 3MG/0.5MG NEB 3 ML VIAL INH STA (19:02)
[2017-02-17] MEDS ORDERED: METHYLPREDNISOLONE 125 MG VIAL IV STA (19:02)
--- NOTE | 2017-02-17 19:08 | EMERGENCY ROOM VISIT NOTE ---
History Report prepared by Tina: Umm Henderson Under the Supervision of: Dr. Nilsa Card M.D. First contact with patient: 18:55 Chief Complaint: SHORTNESS OF BREATH Stated Complaint: ASTHMA History of Present Illness The patient is an 86 year old male who presents to the Emergency Room with complaints of persistent shortness of breath that began a few days ago. The patient states that around 1600 today he took a nebulizer treatment without relief of his symptoms. He states that he took his emergency Xopenex at 1800, noting that it seemed to loosen up his chest at that point. 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 The patient states that he has been using a c-pap at night for the past five weeks. He states that typically in the past for his asthma exacerbations, he has been placed on a prednisone taper, which always seemed to help alleviate his symptoms. Source of History: patient Onset: few days ago Position: other (global) Quality: other (shortness of breath) Timing: other (persistent) Modifying Factors (Relieving): other (Xopenex) Review of Systems See HPI for pertinent positives & negatives. A total of 10 systems reviewed and were otherwise negative. 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 (14) Transient ischemic attack Surgical Problems: (1) H/O nasal polypectomy (2) S/P cholecystectomy (3) Status post surgical removal of malignant neoplasm of skin Family History Alzheimer's disease FATHER Asthma MOTHER SON Heart disease MOTHER SISTER Social History Smoking Status: Never Smoker Alcohol Use: none Drug Use: none Marital Status: Housing Status: lives with family Occupation Status: retired Current/Historical Medications Scheduled Budesonide/Formoterol Fumarate (Symbicort 160/4.5 Inhaler), 2 PUFFS INH BID Calcium Carbonate-Vitamin D (Calcium 600 + D), 1 TAB PO BID Clopidogrel (Plavix), 75 MG PO DAILY Digoxin (Digox), 125 MCG PO DAILY Finasteride (Proscar), 5 MG PO DAILY Ipratropium Twain (Atrovent 0.02% Soln), 2.5 ML NEB TID Levalbuterol Hcl (Levalbuterol), 1 VIAL NEB TID Loratadine (Claritin), 10 MG PO DAILY Misc Natural Products (Osteo Bi-Flex Advanced Tr), 1 TAB PO BID Montelukast Sodium (Singulair), 10 MG PO QPM Multivitamin (Multivitamin), 1 TAB PO DAILY Pantoprazole (Pantoprazole Sodium), 40 MG PO BID Potassium Chloride (Micro-K Ext Rel), 10 MEQ PO DAILY Prednisone Tab (Prednisone), 10 MG PO DIRECTED Terazosin Hcl (Hytrin), 2 MG PO HS Verapamil Hcl (Verapamil Hcl Sr), 180 MG PO DAILY Scheduled PRN Acetaminophen (Tylenol), 1,000 MG PO Q4H PRN for Pain Aluminum Hydroxide-Mag Carb (Gaviscon), 5 ML PO TID PRN for Acid Reflux Levalbuterol Tartrate (Levalbuterol Tartrate Hfa), 2 PUFFS INH Q8 PRN for Wheezing Polyethylene Glycol 3350 (Miralax), 17 GM PO DAILY PRN for Constipation Allergies Coded Allergies: Aspirin (Verified Allergy, Severe, TIGHTNESS IN CHEST, 11/19/16) NSAIDs (Verified Allergy, Severe, TIGHTNESS IN THE CHEST, 11/19/16) Rofecoxib (Verified Allergy, Severe, TIGHTNESS IN CHEST, 11/19/16) Ibuprofen (Verified Allergy, Intermediate, Asthma Symptoms, 11/26/16) Physical Exam Vital Signs Date Time Temp Pulse Resp B/P (MAP) Pulse Ox O2 Delivery O2 Flow Rate FiO2 02/17/17 20:58 79 18 110/77 93 02/17/17 20:31 81 02/17/17 20:04 91 18 119/78 94 Room Air 02/17/17 19:16 91 02/17/17 18:56 93 Room Air 02/17/17 18:38 36.7 90 20 127/74 92 Room Air Physical Exam Vital signs reviewed. General: Well-appearing elderly male, in no significant distress. HEENT: No scleral icterus, PERRLA, neck supple. Atraumatic. Cardiovascular: Regular rate and rhythm, no extra sounds. Pulmonary: coarse breath sounds with wheezing bilaterally, normal work of breathing. Abdomen: Soft, nontender, nondistended, positive bowel sounds. Musculoskeletal: Atraumatic, right lower extremity edema. Neurologic: Patient awake alert and oriented x 3 Skin: Warm, dry, no rash Medical Decision & Procedures ER Provider Diagnostic Interpretation: X-ray results as stated below per interpretation by me and the radiologist: CHEST ONE VIEW PORTABLE CLINICAL HISTORY: Asthma exacerbation COMPARISON STUDY: Chest radiograph December 01, [address] December 02, 2016. FINDINGS: A dual lead left pacemaker is again noted. There are right axillary surgical clips. There is no pneumothorax. Diffuse interstitial thickening is similar to prior exams. Mild left basilar opacity is unchanged. IMPRESSION: No significant change in diffuse interstitial thickening and mild bibasilar opacities. Electronically signed by: Damion Grigsby M.D. 02/17/2017 7:40 PM Dictated Date/Time: 02/17/2017 7:37 PM Laboratory Results 02/17/17 19:10 Red Blood Count 4.37, Mean Corpuscular Volume 90.6, Mean Corpuscular Hemoglobin 30.4, Mean Corpuscular Hemoglobin Concent 33.6, Mean Platelet Volume 9.2, Neutrophils (%) (Auto) 47.1, Lymphocytes (%) (Auto) 28.5, Monocytes (%) (Auto) 12.1, Eosinophils (%) (Auto) 11.3, Basophils (%) (Auto) 0.6, Neutrophils # (Auto ) 3.35, Lymphocytes # (Auto) 2.02, Monocytes # (Auto) 0.86, Eosinophils # (Auto ) 0.80, Basophils # (Auto) 0.04 02/17/17 19:10 Test 02/17/17 19:10 White Blood Count 7.10 K/uL (4.8-10.8) Red Blood Count 4.37 M/uL (4.7-6.1) Hemoglobin 13.3 g/dL (14.0-18.0) Hematocrit 39.6 % (42-52) Mean Corpuscular Volume 90.6 fL (80-100) Mean Corpuscular Hemoglobin 30.4 pg (25-34) Mean Corpuscular Hemoglobin Concent 33.6 g/dl (32-36) Platelet Count 212 K/uL (130-400) Mean Platelet Volume 9.2 fL (7.4-10.4) Neutrophils (%) (Auto) 47.1 % Lymphocytes (%) (Auto) 28.5 % Monocytes (%) (Auto) 12.1 % Eosinophils (%) (Auto) 11.3 % Basophils (%) (Auto) 0.6 % Neutrophils # (Auto) 3.35 K/uL (1.4-6.5) Lymphocytes # (Auto) 2.02 K/uL (1.2-3.4) Monocytes # (Auto) 0.86 K/uL (0.11-0.59) Eosinophils # (Auto) 0.80 K/uL (0-0.5) Basophils # (Auto) 0.04 K/uL (0-0.2) RDW Standard Deviation 47.6 fL (36.4-46.3) RDW Coefficient of Variation 14.3 % (11.5-14.5) Immature Granulocyte % (Auto) 0.4 % Immature Granulocyte # (Auto) 0.03 K/uL (0.00-0.02) Prothrombin Time 10.7 SECONDS (9.0-12.0) Prothromb Time International Ratio 1.0 (0.9-1.1) Activated Partial Thromboplast Time 30.1 SECONDS (21.0-31.0) Partial Thromboplastin Ratio 1.2 Anion Gap 9.0 mmol/L (3-11) Est Creatinine Clear Calc Drug Dose 44.6 ml/min Estimated GFR () 52.4 Estimated GFR (Non- 45.2 BUN/Creatinine Ratio 21.1 (10-20) Calcium Level 8.1 mg/dl (8.5-10.1) Magnesium Level 2.3 mg/dl (1.8-2.4) Total Bilirubin 0.9 mg/dl (0.2-1) Direct Bilirubin 0.2 mg/dl (0-0.2) Aspartate Amino Transf (AST/SGOT) 16 U/L (15-37) Alanine Aminotransferase (ALT/SGPT) 26 U/L (12-78) Alkaline Phosphatase 61 U/L (45-117) Total Protein 6.6 gm/dl (6.4-8.2) Albumin 3.3 gm/dl (3.4-5.0) Laboratory results per my review. Medications Administered Medications (Trade) Dose Ordered Sig/Akash Route Start Time Stop Time Status Last Admin Dose Admin Albuterol/ Ipratropium (Duoneb) 3 ml NOW STAT INH 02/17/17 19:02 02/17/17 19:05 DC 02/17/17 19:22 3 ML Methylprednisolone Sodium Succinate (Solu-Medrol IV) 125 mg NOW STAT IV 02/17/17 19:02 02/17/17 19:05 DC 02/17/17 19:22 125 MG ECG Indication: SOB/dyspnea Rate (beats per minute): 82 Rhythm: atrial fibrillation Findings: RBBB, no acute ischemic change, other (left axis deviation, previous inferior infract, replarization abnormality) ED Course 1899: Past medical records reviewed. The patient was evaluated in room B10. A complete history and physical examination was performed. 1901: Ordered Solu-Medrol IV 125 mg IV, Duoneb 3 ml INH. 2042: I reevaluated the patient and he is feeling a lot better. I discussed the exam findings with him and I discussed the treatment plan. He verbalized complete understanding and agreement. He is ready to go home. Medical Decision Differential diagnosis: Etiologies such as infections, reactive airway disease, pneumonia, pneumothorax , COPD, CHF, cardiac ischemia, pulmonary embolism, musculoskeletal, gastrointestinal, as well as others were entertained. Medication Reconciliation: I attest that I have personally reviewed the patient' s current medication list. Blood Pressure Screening: Patient was found to have normal blood pressure on screening and does not require follow-up. This patient was evaluated and appeared to be in no significant distress. Physical examination is consistent with an asthma exacerbation. She was medicated with IV Solu-Medrol, given a DuoNeb treatment. Chest x-ray was obtained and reveals chronic changes however there is no evidence of acute pathology. The patient's laboratory work is fairly unrevealing. Patient's oxygenation has remained stable on room air. He was placed on a prednisone taper and will continue his nebulizer treatments as prescribed. The patient will follow-up with his primary care physician for reevaluation this week and return to the ER for worsening of symptoms or any medical concerns. Impression Primary Impression: Asthma exacerbation Scribe Attestation The scribe's documentation has been prepared under my direction and personally reviewed by me in its entirety. I confirm that the note above accurately reflects all work, treatment, procedures, and medical decision making performed by me. Departure Information Dispostion Home / Self-Care Prescriptions Prednisone Tab (PREDNISONE) 10 Mg Tab 10 MG PO DIRECTED, #31 TAB 40 mg for 4 days, 30 mg for 3 days, 20 mg for 2 days, 10 mg for 2 days Prov: Nilsa Card M.D. 02/17/17 Referrals Dionte Banda [facility] (PCP) Forms HOME CARE DOCUMENTATION FORM, IMPORTANT VISIT INFORMATION Patient Instructions My [facility] Additional Instructions Diagnosis: Asthma exacerbation Continue nebulizers as prescribed. Prednisone 40 mg daily for 4 days, 30 mg for 3 days, 20 mg for 2 days, 10 mg for 2 days. Start tomorrow. Follow up with your doctor this week for reevaluation. Return to the emergency for worsening of symptoms or any medical concerns.
[2017-02-17 19:22] LABS: BASO % 0.6 %; BASO ABS # 0.04 K/uL (0-0.2); COMPLETE YES; EOS % 11.3 %; HEMATOCRIT 39.6 % (42-52); IG% 0.4 %; LYMPH % 28.5 %; LYMPH ABS # 2.02 K/uL (1.2-3.4); MEAN CELL VOLUME 90.6 fL (80-100); MEAN CORPUSCULAR HEMOGLOBIN 30.4 pg (25-34); MEAN CORPUSCULAR HGB CONC 33.6 g/dl (32-36); MEAN PLATELET VOLUME 9.2 fL (7.4-10.4); MONO % 12.1 %; NEUT % 47.1 %; PLATELET COUNT 212 K/uL (130-400); RED BLOOD COUNT 4.37 M/uL (4.7-6.1)
[2017-02-17 19:39] LABS: PARTIAL THROMBOPLASTIN RATIO 1.2; PROTHROMBIN TIME (PATIENT) 10.7 SECONDS (9.0-12.0)
[2017-02-17 19:40] LABS: BUN/CREATININE RATIO 21.1 (10-20); CALCIUM 8.1 mg/dl (8.5-10.1); CREATININE 1.4 mg/dl (0.60-1.40); MAGNESIUM 2.3 mg/dl (1.8-2.4)
--- NOTE | 2017-02-17 19:41 | DIAGNOSTIC IMAGING REPORT ---
CHEST ONE VIEW PORTABLE CLINICAL HISTORY: Asthma exacerbation COMPARISON STUDY: Chest radiograph December 01, [address] December 02, 2016. FINDINGS: A dual lead left pacemaker is again noted. There are right axillary surgical clips. There is no pneumothorax. Diffuse interstitial thickening is similar to prior exams. Mild left basilar opacity is unchanged. IMPRESSION: No significant change in diffuse interstitial thickening and mild bibasilar opacities. Electronically signed by: Damion Grigsby M.D. 02/17/2017 7:40 PM Dictated Date/Time: 02/17/2017 7:37 PM
[2017-02-17] MEDS ORDERED: PRED10TA PO (20:49)
[2017-02-17 20:58] VITALS: BP 110/77; PULSE 79; O2SAT 93
[2017-07-20] MEDS ORDERED: PRED10TA PO (08:59)
[2017-07-20] MEDS ORDERED: NYSS5 PO (08:59)
[2017-07-20] MEDS ORDERED: BENZ100C7 PO (08:59)
== END 2017-02-17 20:58 | disposition home or self-care (01) ==
LOC: C.EDB 18:33
DX: J45.901 Unspecified asthma with (acute) exacerbation (principal); Z95.0 Presence of cardiac pacemaker; K21.9 Gastro-esophageal reflux disease without esophagitis; I48.91 Unspecified atrial fibrillation; M77.9 Enthesopathy, unspecified; M19.071 Primary osteoarthritis, right ankle and foot; N40.0 Benign prostatic hyperplasia without lower urinary tract symptoms; N18.3 Chronic kidney disease, stage 3 (moderate); K58.9 Irritable bowel syndrome, unspecified; M35.3 Polymyalgia rheumatica; Z86.73 Personal history of transient ischemic attack (TIA), and cerebral infarction without residual deficits; Z82.49 Family history of ischemic heart disease and other diseases of the circulatory system; Z79.02 Long term (current) use of antithrombotics/antiplatelets; Z79.899 Other long term (current) drug therapy

== ENCOUNTER → 2017-04-10 | Outpatient (CLI) | payer OTHER, BC ==
[~2017-04-10] MED LIST changes: +ASTN; +BENZ100C7 PO; +BISA-16 PO; +DXY100 PO; +FLUN0.02 NAE; +GUAI1TAB75 PO; +LCTX PO; +OXGN; -PANT40TA2 PO; +PRED10TA PO; +PRT/20 PO; +PRT/40 PO
--- NOTE | 2017-04-11 05:23 | PAP/PSG TECHNICIAN REPORT ---
[facility] Legal Support Manager Polysomnogram Report Study name: None Report date: 04/11/2017 Study date: 04/10/2017 Referring Physician: Letty Arce PA-C, PA-C Name: HAYLEY HOLLOWAY Interpreting Physician: Fer Osborn D.O. Date of : 1930 Legal Support Manager: Lizbeth Webb [facility]. Sex: Male Age: 86 StudyType: PSG PAP Weight: 211 lbs Height: 86 years, Height 6' 2" Neck Circum: BMI: 27.09 Medications: Pantoprazole Sodium 40mg, Singulair 10mg, Ipratropium [place] 0.02% inh soln, Levalbuterol HCl 1.25mg/0.5ml, Xopenex HFA 45mcg/act, Finasteride 5mg, Hytrin caps, Plavix 75mg, Calcium D, Loratidine 10mg, Prednisone 10mg, , Ranitidine HCl 150mg, Stool Softener Patient History Study started on room air with bipap 04/11 in room #6. 86 yr old male here tonight for a bi-pap titration study. He has been using cpap at home but is having problems with the leak and AHI being elevated. I explained to him that if he is a mouth breather he will need to use a full face mask for treatment to be effective. He agreed to start with a [facility] His neck circ=16.5inches. Parameters Monitored NPSG: E1-M2, E2-M1, Fp1-M2, Fp2-M1, F3-M2, F4-M2, F4-M1, C3-M2, C4-M2, C4-M1, O1-M2, O2-M2, O2-M1, T3-M2, T4-M1, P3-M2, P4-M1, CHIN1, CHIN2, HR, EKG, Legs, PFLOW, SNOR, FLOW, CFLOW, Tidal Volume, THOR, ABDO, SpO2, PLTH, CPRESS, ETCO2 Wave, ETCO2, pH Sleep Architecture Sleep Stages Time at Lights Off 9:56:55 PM STAGES Time (min.) TST (%) Time at Lights On 5:13:55 AM Wake 339.5 -- Total Recording Time (TRT) 437.00 min. N1 49.5 51 Total Sleep Period (TSP) 306.5 min. N2 45.0 46 Total Sleep Time (TST) 97.5min. N3 0.0 0 Awake Time 339.5 min. REM 3.0 3 Wake after Sleep Onset 306.0 min. Sleep Efficiency (SE) 22 % Sleep Onset Latency (CHARLA) 33.5 min. Number of Stage 1 Shifts None Awakenings 47 Stage Changes 150 Number of REM periods 2 REM 3.0 3 REM Latency 278.0 min. NREM 94.5 97 Body Position Analysis Supine Right Left Side Prone Vertical Total Sleep Time (min.) 437.0 0.0 0.0 0.00 0.0 0.0 Total Sleep Time (%) 100% 0% 0% 0 0% N/A% Total Sleep Time REM (min.) 3.0 0.0 0.0 None 0.0 0.0 Total Sleep Time NREM (min.) 94.5 0.0 0.0 None 0.0 0.0 Intermittent Wake (min.) 339.5 0.0 0.0 None 0.0 0.0 Total Sleep Period (%) 100% None None None None None Arousals Myoclonus (PLM) * Events Count Index Events Count Index Spontaneous 40 25 Events Awake (PLMW) 363 64.2 Respiratory 16 14.8 Events Asleep w/ Arousal (PLMA) 16 9.8 PLM 15 10 Events Asleep w/o Arousal (PLMS) 107 65.8 Snoring 2 1 Total Asleep 123 75.7 Total 73 45 Total 486 67 Respiratory Analysis * CA OA MA CH H RERA Total Count 1 11 0 0 5 8 17 Index 0.6 6.8 0.0 0 3.1 5 15.4 Mean Duration 12.3 16.7 0.0 0.00 26.1 26.6 21.6 Longest Duration 12.3 21.0 0.0 0.00 0.0 32.4 33.7 Respiratory Event Summary Total Supine ~Supine Right Left Prone REM NREM Apneas Count 12 12 N/A N/A N/A N/A 0 12 Index 7.4 7 N/A N/A N/A N/A 0 8 Hypopneas (4% Desat) Count 5 5 N/A N/A N/A N/A 0 5 Index 3.1 3.1 N/A N/A N/A N/A 0.0 3.2 Apneas & All Hypopneas Count 17 17 N/A N/A N/A N/A 0 17 Index 10.5 10 N/A N/A N/A N/A 0.0 10.8 Respiratory Events (Furniture Sales Consultant+All Hyp+RERA) Count 17 25 N/A N/A N/A N/A 0 17 Index 15.4 15 N/A N/A N/A N/A 20.0 15.2 Respiratory Related Arousal Count 16 25 N/A N/A N/A N/A 1 23 Index 14.8 15 N/A N/A N/A N/A 20 15 Snoring Analysis Supine Right Left Prone REM NREM Total Snore duration 0.9 min Snores count 34 N/A N/A N/A 0 34 34 Snore mean duration 1.5 Sec Snores index 21 N/A N/A N/A 0.0 21.6 20.9 TST with snoring (%) 0.9% Desaturation Event Summary: Minimum %SpO2 Event Count Mean/Min/Max Duration(sec.) Desaturation Index % Time In Bed > 90 10 38.5 / 17.5 / 60.0 5.8 24.3 86 - 90 5 25.8 / 0.0 / 57.8 0.9 75.2 81 - 85 0 N/A 0.0 0.5 76 - 80 0 N/A 0.0 0.0 71 - 75 0 N/A 0.0 0.0 66 - 70 0 N/A 0.0 0.0 61 - 65 0 N/A 0.0 0.0 56 - 60 0 N/A 0.0 0.0 51 - 55 0 N/A 0.0 0.0 < 50 0 N/A 0.0 0.0 Total REM NREM Awake <50% 0.0 min. 0.0 min. 0.0 min. 0.0 min. 51 - 60% 0.0 min. 0.0 min. 0.0 min. 0.0 min. 61 - 70% 0.0 min. 0.0 min. 0.0 min. 0.0 min. 71 - 80% 0.0 min. 0.0 min. 0.0 min. 0.0 min. 81 - 90% 324.4 min. 3.0 min. 60.7 min. 260.8 min. 91 - 100% 104.1 min. 0.0 min. 33.6 min. 70.5 min. Average 90 89 90 89 Minimum SpO2 81 88 84 81 Desaturation Event Index 1.6 0.0 2.5 1.4 # Desat. Events below 89% 6 N/A 2 4 Time(%) with Saturation below 89% 25.1 0.0 1.9 23.1 Time(min.) with Saturation below 89% 107.4 0.2 8.3 98.9 Time (mins) REM (mins) NREM (mins) % of TST SpO2 Below 90% 4 N/A N4 32.9 SpO2 Below 88% 2 0 0 1 Heart Rate Analysis Min (bpm) Max (bpm) Average (bpm) Awake 37 127 81 NREM 50 100 80 REM 57 97 83 Overall 50 100 80 Supplemental O2 Values Minimum O2 level: None Value Start Time End Time Legal Support Manager Comments Mr. Holloway slept in the supine position with the head of his bed slightly elevated.. Cardiac arrhythmia and PLM's noted, please see print outs. No bruxism noted. PAP initiated at an IPAP of +8 CMH2O and an EPAP of +4 CMH2O up-titrated to a level of: IPAP +14 CMH2O, EPAP + 9 CMH20.. A large Simplus full face mask by [employer] was used during titration He awoke to use the urinal 3 times during the night He stated that he slept worse than when at home. He said that he just took "cat naps" and didn't get into a real deep sleep. He didn't seem to know how to adjust his mask if there was a leak, even after I explained and showed him how to tighten his mask. The final report will be interpreted and signed by a sleep physician. The completed physician report will then be placed in the patient medical record. Therapy Event: Therapy (cm H20) 04/11 05/13 07/15 08/15 21/05 22/05 Total Time at Pressure (min.) 124.8 19.1 42.9 33.8 99.9 116.4 TST at Pressure (min.) 8.3 11.1 16.0 24.6 29.9 7.4 # Periods 1 1 1 1 1 1 Sleep Onset (min.) 33.5 0.0 0.0 1.7 0.0 0.0 REM Onset (min.) N/A N/A N/A N/A 90.9 3.4 Sleep Efficiency % 6 58 37 72 30 6 Wakefulness (%) 93.3 41.8 62.6 27.1 70.0 93.6 Wakefulness (min.) 116.5 8.0 26.8 9.2 70.0 109.0 NREM 1 (%) 5.6 41.6 18.7 34.1 11.1 3.4 NREM 1 (min.) 7.0 8.0 8.0 11.5 11.1 3.9 NREM 2 (%) 1.1 16.6 18.7 38.8 17.4 1.7 NREM 2 (min.) 1.3 3.2 8.0 13.1 17.4 2.0 NREM 3 (%) 0.0 0.0 0.0 0.0 0.0 0.0 NREM 3 (min.) 0.0 0.0 0.0 0.0 0.0 0.0 REM (%) 0.0 0.0 0.0 0.0 1.5 1.3 REM (min.) 0.0 0.0 0.0 0.0 1.5 1.5 # Arousals 12 12 15 14 18 2 Arousal Index 86.6 64.6 56.1 34.1 36.1 16.1 # Snore 3 2 7 16 5 1 Snore Index 21.6 10.8 26.2 39.0 10.0 8.1 AHI 28.9 16.1 11.2 14.6 2.0 0.0 AHI Supine 28.9 16.1 11.2 14.6 2.0 0.0 AHI Non-Supine N/A N/A N/A N/A N/A N/A NREM AHI 28.9 16.1 11.2 14.6 2.1 0.0 REM AHI N/A N/A N/A N/A 0.0 0.0 RDI 28.9 16.1 11.2 17.1 16.0 0.0 # Obstructive 3 2 2 3 1 0 # Central Ap 1 0 0 0 0 0 # Mixed 0 0 0 0 0 0 # Hypopneas 0 1 1 3 0 0 RERAS 0 0 0 1 7 0 Total Respiratory Events 4 3 3 7 8 0 Time Below SpO2 89.00% (min.) 0.9 0.0 1.8 3.0 2.7 0.1 Mean NREM SpO2 (%) 90 91 90 90 90 89 Mean REM SpO2 (%) N/A N/A N/A N/A 89 89 Mean Sleep SpO2 (%) 90 91 90 90 90 89 Min NREM SpO2 (%) 87 89 87 84 88 88 Min REM SpO2 (%) N/A N/A N/A N/A 88 89 Position Supine (min.) 8.3 11.1 16.0 24.6 29.9 7.4 Position Non-supine (min.) 0.0 0.0 0.0 0.0 0.0 0.0 LM Index Sleep 72.1 10.8 33.7 80.5 116.2 88.6 LM Index NREM 72.1 10.8 33.7 80.5 120.2 100.9 LM Index REM N/A N/A N/A N/A 40.0 40.0 Mean Heart Rate (bpm) 81 81 80 80 81 81 Min Heart Rate (bpm) 67 68 54 50 54 55
--- NOTE | 2017-04-13 15:31 | Sleep Study ---
Sleep Study Report Date of Service: 04/10/2017 Sleep Study Report Clinical data: The patient is an 86-year-old male with a BMI of 27.09. He had a sleep study done 10/19/2016 that showed severe sleep apnea with an apnea-hypopnea index of 94.3. The apnea was both obstructive and central in nature. He had atrial fibrillation. The patient was not feeling well the night of that study. He was having nausea and vomiting. His sleep time was only 53 minutes. The patient return for a sleep study on 12/24/2016. A split study was done. His apnea-hypopnea index was 10.8 and he had a CPAP pressure of 13 centimeters. Patient has had problems with air leaks. At some point in time he was treated with auto CPAP. Recent compliance for 2 months ago showed an apnea-hypopnea index of 30 and for the prior month showed an apnea-hypopnea index of 21. He is referred for a BiPAP titration study. Sleep architecture: The total sleep period was 306.5 minutes. The total sleep time was only 97.5 minutes. The sleep efficiency was severely reduced to 22 percent. Sleep latency was prolonged to 33.5 minutes. Wake after sleep onset was severely increased to 306 minutes. The REM latency was prolonged to 278 minutes. Sleep consisted of stage N1 51 percent, stage N2 46 percent, stage N3 0 percent, and stage REM 3 percent. Arousal data: The patient had a total of 73 arousals including 40 spontaneous arousals, 16 respiratory arousals, 15 PLM arousals, and 2 snoring arousals. The arousal index was elevated at 45. PLM data: The patient had a total of 123 periodic limb movements of sleep for a PLM index of 75.7. There were 16 arousals associated with limb movements for a PLM arousal index of 9.8. EKG: The underlying cardiac rhythm was atrial fibrillation. PVCs were seen. The patient's heart rates ranged from 50 to 100 beats per minute. Respiratory data: The patient's respiratory events were treated with BiPAP. He had a total of 17 respiratory events including 1 central apnea, 11 obstructive apneas, and 5 hypopneas. Hypopneas were scored according to the 4 percent desaturation rule. The apnea-hypopnea index was 10.5. The mean duration of the apneas was 16.7 seconds. The longest apnea was 21 seconds. The mean duration of the hypopneas was 26.1 seconds. There were 8 RERAs. Oximetry data: The average saturation was 90 percent. The minimum saturation was 81 percent. There was 107.4 minutes with saturations less than 89 percent. Director Nurses' Registry comments the patient slept in the supine position with the head of his bed slightly elevated. Cardiac arrhythmia and PLMS were noted. No bruxism was noted. BiPAP was initiated with pressures of 8/4 and was up titrated to a final level of 14/9. A large Simplus fullface mask made by [employer]rett Carlos was utilized. The patient awaken 3 times to urinate. He indicated that he slept worse than when he sleeps at home. Patient did not seem to know how to adjust his mask if there was a leak even after it was explained to him and showed him how to tightness mask. Impressions: 1. Obstructive sleep apnea 2. Periodic limb movement disorder Comments: The patient did very poorly with this BiPAP titration. He had very little sleep. His sleep was poorly consolidated with frequent sleep stage changes. It was unclear if he had difficulty with the BiPAP itself or if it was with his mask. It seems unlikely that the patient would do well with BiPAP. Clinical correlation is required with the patient to determine the potential reasons why he slept so poorly on the night of this study. He did not show any significant central apneas during this study. Recommendations: 1. It would seem at present that CPAP is a better choice for him than BiPAP. I would suggest either trying auto CPAP with a minimum pressure of 8 and maximum pressure of 18 or regular CPAP perhaps with a pressure of 15 centimeters. 2. The patient will require close follow-up including clinical evaluations and compliance data which may reflect the level of his apnea-hypopnea index. 3. I suggest questioning the patient very carefully about the comfort of his mask that he used on the night of this study compared with the prior mask he has had at home. He may need further education to help diminish the air leaks he has been having. Copies To 1: Fer Osborn DO; Letty Arce PA-C; Mayuri Littlejohn M.D.
== END | disposition home or self-care (01) ==
LOC: C.NEUR 20:00
PROVIDERS: ATTEND Physician Assistant
DX: G47.30 Sleep apnea, unspecified (principal); J47.9 Bronchiectasis, uncomplicated

== ENCOUNTER → 2017-04-23 | Outpatient (CLI) | payer OTHER, BC ==
--- NOTE | 2017-04-23 09:46 | DIAGNOSTIC IMAGING REPORT ---
CHEST 2 VIEWS ROUTINE CLINICAL HISTORY: J20.9 COUGH COMPARISON STUDY: 02/17/2017 FINDINGS: The cardiac and mediastinal contours remain stable. There is a left subclavian dual-chamber central venous pacemaker. Surgical clips project over the right axillary region. There is mild interstitial thickening, similar to the preceding study. There is no lobar consolidation. There are no significant pleural effusions.[ IMPRESSION: Stable interstitial thickening. No acute parenchymal consolidation. Electronically signed by: Myles Carbone M.D. 04/23/2017 9:44 AM Dictated Date/Time: 04/23/2017 9:44 AM
== END | disposition home or self-care (01) ==
LOC: C.RAD1850 09:31
PROVIDERS: ATTEND Internal Medicine Critical Care Medicine
DX: J20.9 Acute bronchitis, unspecified (principal)

== ENCOUNTER → 2017-05-13 | Outpatient (CLI) | payer OTHER, BC ==
--- NOTE | 2017-05-13 13:07 | DIAGNOSTIC IMAGING REPORT ---
CHEST 2 VIEWS HISTORY: Bronchiectasis. J47.9 [id number] COMPARISON: Chest 04/23/2017. FINDINGS: No pneumothorax. No pleural effusions. The heart is top normal in size. Left-sided dual-chamber pacemaker. The lungs are hyperexpanded with mild apical predominant emphysematous changes. Mild diffuse interstitial thickening, unchanged. No new focal lung consolidations. No evidence for pulmonary edema. Stable mild anterior wedging within the mid thoracic spine vertebral body. There are surgical clips within the right axilla. IMPRESSION: No change in the mild emphysema and chronic interstitial thickening. No new focal lung consolidations. Electronically signed by: Thee Hernandez M.D. 05/13/2017 1:06 PM Dictated Date/Time: 05/13/2017 1:02 PM
[2017-05-13 14:43] LABS: BASO % 0.3 %; BASO ABS # 0.02 K/uL (0-0.2); COMPLETE YES; EOS % 5.2 %; HEMATOCRIT 45.9 % (42-52); IG% 0.3 %; LYMPH % 33.5 %; LYMPH ABS # 2.51 K/uL (1.2-3.4); MEAN CORPUSCULAR HEMOGLOBIN 30.3 pg (25-34); MEAN CORPUSCULAR HGB CONC 32.9 g/dl (32-36); MEAN PLATELET VOLUME 9.8 fL (7.4-10.4); NEUT % 50.7 %; PLATELET COUNT 212 K/uL (130-400); RED BLOOD COUNT 4.99 M/uL (4.7-6.1); WHITE BLOOD COUNT 7.49 K/uL (4.8-10.8)
[2017-05-13 15:05] LABS: BLOOD UREA NITROGEN 24 mg/dl (7-18); BUN/CREATININE RATIO 18.1 (10-20); CALCIUM 9.1 mg/dl (8.5-10.1); CARBON DIOXIDE 28 mmol/L (21-32); CHLORIDE 106 mmol/L (98-107); GLUCOSE 97 mg/dl (70-99); POTASSIUM 3.8 mmol/L (3.5-5.1); SODIUM 139 mmol/L (136-145)
== END | disposition home or self-care (01) ==
LOC: C.RAD1850 12:46
PROVIDERS: ATTEND Physician Assistant
DX: J47.9 Bronchiectasis, uncomplicated (principal); R05 Cough; L57.0 Actinic keratosis

== ENCOUNTER 2017-06-03 02:10 | Observation (INO) | payer OTHER, BC ==
[~2017-06-03] VITALS: Ht 195.6 cm; Wt 90.5 kg
[2017-06-03] VITALS (7 sets, daily range): BP systolic 117–173; BP diastolic 71–81; PULSE 65–100; TEMP 36.3–36.5; O2SAT 93–97; Ht 195.6 cm; Wt 90.5 kg
[~2017-06-03 02:10] MED LIST changes: -ASTN; -BENZ100C7 PO; -BISA-16 PO; -DXY100 PO; -FLUN0.02 NAE; -GUAI1TAB75 PO; -LCTX PO; -OXGN; -PRT/20 PO
--- NOTE | 2017-06-03 02:21 | EMERGENCY ROOM VISIT NOTE ---
History Report prepared by Tina: Emma Pollard Under the Supervision of: Dr. Nilsa Card M.D. First contact with patient: 02:13 Chief Complaint: CHEST PAIN Stated Complaint: CHEST PAIN/INDIGESTION History of Present Illness The patient is a 86 year old male who presents to the Emergency Room with complaints of sudden left-sided chest pain beginning this afternoon. He describes the pain as being an ache and that his left arm was tingling when he was going to bed tonight. The patient also reports having indigestion and shortness of breath. The patient reports that he has a pacemaker and that he is in atrial fibrillation. He states that he does not take blood thinners. He reports that he is asthmatic but does not often get chest pain. Source of History: patient Onset: this afternoon Position: chest (left) Quality: ache Timing: other (sudden ) Associated Symptoms: + SOB Note: additional symptom: indigestion Review of Systems See HPI for pertinent positives & negatives. A total of 10 systems reviewed and were otherwise negative. 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 (17) Transient ischemic attack Surgical Problems: (1) H/O nasal polypectomy (2) S/P cholecystectomy (3) Status post surgical removal of malignant neoplasm of skin Family History Alzheimer's disease FATHER Asthma MOTHER SON Heart disease MOTHER SISTER Social History Smoking Status: Never Smoker Alcohol Use: none Drug Use: none Marital Status: Housing Status: lives with family Occupation Status: retired Current/Historical Medications Scheduled Aluminum Hydroxide-Mag Carb (Gaviscon), 5 ML PO TID Azelastine Hcl (Astelin Nasal [place]), 2 SPRAYS NA BID Budesonide/Formoterol Fumarate (Symbicort 160/4.5 Inhaler), 2 PUFFS INH BID Calcium Carbonate-Vitamin D (Calcium 600 + D), 1 TAB PO BID Clopidogrel (Plavix), 75 MG PO DAILY Digoxin (Digox), 125 MCG PO DAILY Finasteride (Proscar), 5 MG PO DAILY Flunisolide (Nasal) (Flunisolide), 2 SPRY MARVIN BID Guaifenesin La (Guaifenesin Er), 600 MG PO Q12H Home O2 Therapy (Oxygen), 2 LITERS NA hs with cpap Loratadine (Claritin), 10 MG PO DAILY Misc Natural Products (Osteo Bi-Flex Advanced Tr), 1 TAB PO BID Montelukast Sodium (Singulair), 10 MG PO QPM Multivitamin (Multivitamin), 1 TAB PO DAILY Pantoprazole (Protonix), 20 MG PO BID Potassium Chloride (Micro-K Ext Rel), 10 MEQ PO DAILY Terazosin Hcl (Hytrin), 2 MG PO HS Verapamil Hcl (Verapamil Hcl Sr), 180 MG PO DAILY Scheduled PRN Bisacodyl (Dulcolax), 5 MG PO DAILY PRN for Constipation Ipratropium [place] (Atrovent 0.02% Soln), 2.5 ML NEB TID PRN for Wheezing Levalbuterol Hcl (Levalbuterol), 1 VIAL NEB Q6 PRN for cough/sob/wheezing Levalbuterol Tartrate (Levalbuterol Tartrate Hfa), 2 PUFFS INH Q8 PRN for Wheezing Polyethylene Glycol 3350 (Miralax), 17 GM PO DAILY PRN for Constipation Allergies Coded Allergies: Aspirin (Verified Allergy, Severe, TIGHTNESS IN CHEST, 06/03/17) NSAIDs (Verified Allergy, Severe, TIGHTNESS IN THE CHEST, 06/03/17) Rofecoxib (Verified Allergy, Severe, TIGHTNESS IN CHEST, 06/03/17) Ibuprofen (Verified Allergy, Intermediate, Asthma Symptoms, 06/03/17) Physical Exam Vital Signs Date Time Temp Pulse Resp B/P (MAP) Pulse Ox O2 Delivery O2 Flow Rate FiO2 06/03/17 04:02 81 23 125/86 93 Nasal Cannula 2.0 06/03/17 03:27 86 23 137/85 94 Nasal Cannula 2.0 06/03/17 02:19 36.4 86 19 141/76 94 Nasal Cannula 2.0 06/03/17 02:19 94 Nasal Cannula 2.0 06/03/17 02:19 94 Nasal Cannula 2.0 06/03/17 02:18 96 06/03/17 02:16 84 Physical Exam Vital signs reviewed. General: Well-appearing male, in no significant distress. Nasal cannula oxygen. HEENT: No scleral icterus, PERRLA, neck supple. Atraumatic. Cardiovascular: Regular rate and rhythm, no extra sounds. Pulmonary: Coarse breath sounds bilaterally. Abdomen: Soft, nontender, nondistended, positive bowel sounds. Musculoskeletal: Atraumatic, no peripheral edema. Neurologic: Patient awake alert and oriented x 3 Skin: Warm, dry, no rash Medical Decision & Procedures ER Provider Diagnostic Interpretation: Chest X-Ray: Chronic interstitial thickening. No focal line consolidation. No failure. Laboratory Results 06/03/17 02:45 Red Blood Count 4.64, Mean Corpuscular Volume 90.1, Mean Corpuscular Hemoglobin 31.3, Mean Corpuscular Hemoglobin Concent 34.7, Mean Platelet Volume 9.7, Neutrophils (%) (Auto) 42.8, Lymphocytes (%) (Auto) 43.8, Monocytes (%) (Auto) 6.8, Eosinophils (%) (Auto) 5.9, Basophils (%) (Auto) 0.4, Neutrophils # (Auto) 2.97, Lymphocytes # (Auto) 3.04, Monocytes # (Auto) 0.47, Eosinophils # (Auto) 0.41, Basophils # (Auto) 0.03 06/03/17 02:45 Test 06/03/17 02:45 06/03/17 02:54 White Blood Count 6.94 K/uL (4.8-10.8) Red Blood Count 4.64 M/uL (4.7-6.1) Hemoglobin 14.5 g/dL (14.0-18.0) Hematocrit 41.8 % (42-52) Mean Corpuscular Volume 90.1 fL (80-100) Mean Corpuscular Hemoglobin 31.3 pg (25-34) Mean Corpuscular Hemoglobin Concent 34.7 g/dl (32-36) Platelet Count 167 K/uL (130-400) Mean Platelet Volume 9.7 fL (7.4-10.4) Neutrophils (%) (Auto) 42.8 % Lymphocytes (%) (Auto) 43.8 % Monocytes (%) (Auto) 6.8 % Eosinophils (%) (Auto) 5.9 % Basophils (%) (Auto) 0.4 % Neutrophils # (Auto) 2.97 K/uL (1.4-6.5) Lymphocytes # (Auto) 3.04 K/uL (1.2-3.4) Monocytes # (Auto) 0.47 K/uL (0.11-0.59) Eosinophils # (Auto) 0.41 K/uL (0-0.5) Basophils # (Auto) 0.03 K/uL (0-0.2) RDW Standard Deviation 45.8 fL (36.4-46.3) RDW Coefficient of Variation 13.8 % (11.5-14.5) Immature Granulocyte % (Auto) 0.3 % Immature Granulocyte # (Auto) 0.02 K/uL (0.00-0.02) Anion Gap 7.0 mmol/L (3-11) Est Creatinine Clear Calc Drug Dose 55.7 ml/min Estimated GFR () 63.1 Estimated GFR (Non- 54.4 BUN/Creatinine Ratio 22.6 (10-20) Calcium Level 8.6 mg/dl (8.5-10.1) Total Bilirubin 0.9 mg/dl (0.2-1) Direct Bilirubin 0.2 mg/dl (0-0.2) Aspartate Amino Transf (AST/SGOT) 22 U/L (15-37) Alanine Aminotransferase (ALT/SGPT) 28 U/L (12-78) Alkaline Phosphatase 65 U/L (45-117) Total Protein 6.5 gm/dl (6.4-8.2) Albumin 3.4 gm/dl (3.4-5.0) Bedside Troponin I < 0.030 ng/ml (0-0.045) Laboratory results per my review. ECG Indication: chest pain Rate (beats per minute): 87 Rhythm: atrial fibrillation, other (demand ventricular pacing) Findings: RBBB, T-wave inversion (diffusely ) ED Course 0215: Past medical records reviewed. The patient was evaluated in room B11B. A complete history and physical examination was performed. 0352: Upon reevaluation, the patient is resting comfortably. I discussed laboratory and radiographic results with him. He verbalized agreement of the treatment plan. I spoke with Dr. Cash of the [facility]. The patient will be evaluated for further management and care. Medical Decision Differential diagnosis: Etiologies such as cardiac ischemia, aortic dissection, pulmonary embolism, pneumonia, pneumothorax, musculoskeletal, infections, pericarditis, myocarditis , esophageal rupture, gastrointestinal, as well as others were entertained. This patient was evaluated and appeared to be in no significant distress. Patient's chest pain had resolved in route. Patient states he is allergic to aspirin. He does take Plavix. EKG reveals no significant change from previous. There is no evidence of acute ischemia. Patient's chest x-ray reveals no evidence of focal lung consolidation to my interpretation. Cardiac is negative. Given the patient's age and location of the pain with radiation, he feels in his best interest to stay for further cardiac evaluation. Case was discussed with the hospitalist. Patient is aware of the plan and agrees. Medication Reconcilliation Current Medication List: was personally reviewed by me Blood Pressure Screening Patient's blood pressure: Elevated blood pressure Blood pressure disposition: Referred to PCP Consults Time Called: 034 Consulting Physician: Dr. Cash- [facility] Returned Call: [phone] I reviewed the patient's case with Dr. Cash. He will evaluate the patient for further management. Impression Primary Impression: Chest pain radiating to upper extremity Scribe Attestation The scribe's documentation has been prepared under my direction and personally reviewed by me in its entirety. I confirm that the note above accurately reflects all work, treatment, procedures, and medical decision making performed by me. Departure Information Dispostion Being Evaluated By Hospitalist Referrals Dionte Banda D.O. (PCP) Patient Instructions My [facility]
[2017-06-03 03:00] LABS: BASO % 0.4 %; BASO ABS # 0.03 K/uL (0-0.2); COMPLETE YES; EOS % 5.9 %; HEMATOCRIT 41.8 % (42-52); IG% 0.3 %; LYMPH % 43.8 %; LYMPH ABS # 3.04 K/uL (1.2-3.4); MEAN CELL VOLUME 90.1 fL (80-100); MEAN CORPUSCULAR HEMOGLOBIN 31.3 pg (25-34); MEAN CORPUSCULAR HGB CONC 34.7 g/dl (32-36); MEAN PLATELET VOLUME 9.7 fL (7.4-10.4); MONO % 6.8 %; NEUT % 42.8 %; PLATELET COUNT 167 K/uL (130-400); RED BLOOD COUNT 4.64 M/uL (4.7-6.1); WHITE BLOOD COUNT 6.94 K/uL (4.8-10.8)
[2017-06-03 03:18] LABS: BUN/CREATININE RATIO 22.6 (10-20); CALCIUM 8.6 mg/dl (8.5-10.1); CREATININE 1.2 mg/dl (0.60-1.40); POTASSIUM 3.5 mmol/L (3.5-5.1)
[2017-06-03] MEDS ORDERED: FLUN0.02 NAE (03:19)
[2017-06-03] MEDS ORDERED: BISA-16 PO (03:20)
[2017-06-03] MEDS ORDERED: PRT/20 PO (03:20)
[2017-06-03] MEDS ORDERED: GUAI1TAB75 PO (03:22)
[2017-06-03] MEDS ORDERED: OXGN (03:22)
[2017-06-03] MEDS ORDERED: ASTN (03:22)
[2017-06-03 03:23] LABS: CKMB/CK RATIO 3.5 (0-3.0)
--- NOTE | 2017-06-03 04:00 | History and Physical ---
History & Physical Date & Time of Service: Jun 03, 2017 at 04:00 . Chief Complaint: chest pain . Primary Care Physician: Dionte Banda D.OLincoln . History of Present Illness Source: patient, clinic records, hospital records 86 YO male followed by Dr. Dionte Banda for Family Medicine, Dr. Martinez for Pulmonary Medicine, and Dr. Souza for Cardiology. History of asthma, atrial fibrillation, and other problems outlined below. Developed chest pain this afternoon at rest. Chest pain described as a moderately severe ache, left-sided, nonradiating. Pain somewhat worse with inspiration. No fever. No unusual cough or dyspnea. No hemoptysis. No nausea or vomiting. Tried antacid without relief. . 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 gluteus 2014, left psoas 2015 Status: Chronic (8) Irritable Bowel Syndrome Status: Chronic (9) Pacemaker Status: Chronic (10) Paroxysmal a-fib Status: Chronic (11) PMR (polymyalgia rheumatica) Status: Chronic (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 (13) Transient ischemic attack Status: Resolved Surgical Problems: (1) H/O nasal polypectomy Permanent Comment: 1970s Status: Chronic (2) S/P cholecystectomy Status: Chronic (3) 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 Status: Chronic Family History FATHER Alzheimer's disease MOTHER Asthma Heart disease SISTER Heart disease SON Asthma Social History Smoking Status: Never Smoker Alcohol Use: occasionally Drug Use: none Marital Status: Housing status: lives with family Occupational Status: retired Immunizations History of Influenza Vaccine: Yes History of Tetanus Vaccine?: Yes Tetanus Immunization Date: Jan 04, 2009 History of Pneumococcal: Yes History of Hepatitis B Vaccine: No Multi-Drug Resistant Organisms History of MDRO: No Allergies Coded Allergies: Aspirin (Verified Allergy, Severe, TIGHTNESS IN CHEST, 06/03/17) NSAIDs (Verified Allergy, Severe, TIGHTNESS IN THE CHEST, 06/03/17) Rofecoxib (Verified Allergy, Severe, TIGHTNESS IN CHEST, 06/03/17) Ibuprofen (Verified Allergy, Intermediate, Asthma Symptoms, 06/03/17) Home Medications Scheduled Aluminum Hydroxide-Mag Carb (Gaviscon), 5 ML PO TID Azelastine Hcl (Astelin Nasal [place]), 2 SPRAYS NA BID Budesonide/Formoterol Fumarate (Symbicort 160/4.5 Inhaler), 2 PUFFS INH BID Calcium Carbonate-Vitamin D (Calcium 600 + D), 1 TAB PO BID Clopidogrel (Plavix), 75 MG PO DAILY Digoxin (Digox), 125 MCG PO DAILY Finasteride (Proscar), 5 MG PO DAILY Flunisolide (Nasal) (Flunisolide), 2 SPRY MARVIN BID Guaifenesin La (Guaifenesin Er), 600 MG PO Q12H Home O2 Therapy (Oxygen), 2 LITERS NA hs with cpap Loratadine (Claritin), 10 MG PO DAILY Misc Natural Products (Osteo Bi-Flex Advanced Tr), 1 TAB PO BID Montelukast Sodium (Singulair), 10 MG PO QPM Multivitamin (Multivitamin), 1 TAB PO DAILY Pantoprazole (Protonix), 20 MG PO BID Potassium Chloride (Micro-K Ext Rel), 10 MEQ PO DAILY Terazosin Hcl (Hytrin), 2 MG PO HS Verapamil Hcl (Verapamil Hcl Sr), 180 MG PO DAILY Scheduled PRN Bisacodyl (Dulcolax), 5 MG PO DAILY PRN for Constipation Ipratropium [place] (Atrovent 0.02% Soln), 2.5 ML NEB TID PRN for Wheezing Levalbuterol Hcl (Levalbuterol), 1 VIAL NEB Q6 PRN for cough/sob/wheezing Levalbuterol Tartrate (Levalbuterol Tartrate Hfa), 2 PUFFS INH Q8 PRN for Wheezing Polyethylene Glycol 3350 (Miralax), 17 GM PO DAILY PRN for Constipation Review of Systems Constitutional: No fever, No weight loss Eyes: No worsening of vision, No diplopia ENT: + hearing loss, No nasal symptoms, No sore throat Respiratory: + cough (occasional), + wheezing (chronic) Cardiovascular: + problem reported (as noted above in HPI) Abdomen: + problem reported (acid reflux), No pain, No nausea, No vomiting, No diarrhea, No GI bleeding Musculoskeletal: No joint pain Genitourinary - Male: No hematuria, No dysuria Neurologic: + problem reported (occasional headache) Endocrine: No excessive thirst, No excessive urination Hematologic / Lymphatic: No abnormal bleeding/bruising, No swollen lymph nodes Integumentary: No rash Physical Exam Vital Signs Date Time Temp Pulse Resp B/P (MAP) Pulse Ox O2 Delivery O2 Flow Rate FiO2 06/03/17 03:27 86 23 137/85 94 Nasal Cannula 2.0 06/03/17 02:19 36.4 86 19 141/76 94 Nasal Cannula 2.0 06/03/17 02:19 94 Nasal Cannula 2.0 06/03/17 02:19 94 Nasal Cannula 2.0 06/03/17 02:18 96 06/03/17 02:16 84 General Appearance: WD/WN, no apparent distress Head: normocephalic, atraumatic Eyes: normal inspection, PERRL, EOMI, sclerae normal (conjunctivae pink) ENT: normal ENT inspection, pharynx normal, + pertinent finding (hearing aide) Neck: supple, no adenopathy, thyroid normal, no JVD, trachea midline Respiratory/Chest: no respiratory distress, no accessory muscle use, + wheezing (diffuse mild) Cardiovascular: no edema, no gallop, no JVD, no murmur, + irregularly irregular , + abnormal peripheral pulses (diminished pedal pulses) Abdomen/GI: normal bowel sounds, non tender, soft, no organomegaly, no pulsatile mass Extremities/Musculoskelatal: normal inspection, no calf tenderness, normal capillary refill, no pedal edema Neurologic/Psych: 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-XII nml as tested (PERRL, EOMI, no facial palsy, no dysarthria), no motor/sensory deficits (motor strength extremities intact), alert, normal mood/affect, normal reflexes (patellar reflexes 2/2 bilat; plantar reflexes downgoing), oriented x 3 Skin: normal color, warm/dry, no rash Lymphatic: no adenopathy (cervical / axillary) Diagnostics Laboratory Results Results Past 24 Hours Test 06/03/17 02:45 06/03/17 02:54 Range/Units White Blood Count 6.94 4.8-10.8 K/uL Red Blood Count 4.64 4.7-6.1 M/uL Hemoglobin 14.5 14.0-18.0 g/dL Hematocrit 41.8 42-52 % Mean Corpuscular Volume 90.1 80-100 fL Mean Corpuscular Hemoglobin 31.3 25-34 pg Mean Corpuscular Hemoglobin Concent 34.7 32-36 g/dl Platelet Count 167 130-400 K/uL Mean Platelet Volume 9.7 7.4-10.4 fL Neutrophils (%) (Auto) 42.8 % Lymphocytes (%) (Auto) 43.8 % Monocytes (%) (Auto) 6.8 % Eosinophils (%) (Auto) 5.9 % Basophils (%) (Auto) 0.4 % Neutrophils # (Auto) 2.97 1.4-6.5 K/uL Lymphocytes # (Auto) 3.04 1.2-3.4 K/uL Monocytes # (Auto) 0.47 0.11-0.59 K/uL Eosinophils # (Auto) 0.41 0-0.5 K/uL Basophils # (Auto) 0.03 0-0.2 K/uL RDW Standard Deviation 45.8 36.4-46.3 fL RDW Coefficient of Variation 13.8 11.5-14.5 % Immature Granulocyte % (Auto) 0.3 % Immature Granulocyte # (Auto) 0.02 0.00-0.02 K/uL Sodium Level 144 136-145 mmol/L Potassium Level 3.5 3.5-5.1 mmol/L Chloride Level 110 98-107 mmol/L Carbon Dioxide Level 27 21-32 mmol/L Anion Gap 7.0 3-11 mmol/L Blood Urea Nitrogen 27 7-18 mg/dl Creatinine 1.20 0.60-1.40 mg/dl Est Creatinine Clear Calc Drug Dose 55.7 ml/min Estimated GFR () 63.1 Estimated GFR (Non- 54.4 BUN/Creatinine Ratio 22.6 10-20 Random Glucose 92 70-99 mg/dl Calcium Level 8.6 8.5-10.1 mg/dl Total Bilirubin 0.9 0.2-1 mg/dl Direct Bilirubin 0.2 0-0.2 mg/dl Aspartate Amino Transf (AST/SGOT) 22 15-37 U/L Alanine Aminotransferase (ALT/SGPT) 28 12-78 U/L Alkaline Phosphatase 65 45-117 U/L Total Creatine Kinase 111 39-308 U/L Creatine Kinase MB 3.9 0.5-3.6 ng/ml Creatine Kinase MB Ratio 3.5 0-3.0 Total Protein 6.5 6.4-8.2 gm/dl Albumin 3.4 3.4-5.0 gm/dl Bedside Troponin I < 0.030 0-0.045 ng/ml Diagnostic Radiology Chest x-ray reviewed by the undersigned (preliminary interpretation): cardiomegaly, pacemaker, chronic interstitial disease, no acute infiltrates, effusions, CHF . EKG EKG performed at 02:16 reviewed and demonstrated AF at 90 / minute, RBBB, repolarization abnormalities. . Impression Assessment and Plan CHEST PAIN Left-sided chest pain at rest, somewhat pleuritic in nature. Troponin in ED negative. Check serial cardiac markers; D-dimer with next set. Hopefully pulmonary embolism will be ruled out due to history of spontaneous hemorrhages in past on anticoagulants. Intolerant or allergic to aspirin. Continue clopidogrel. No beta don due to asthma. Continue verapamil. Consult Cardiology Chronic AF Continue digoxin and verapamil. Not anticoagulated due to history of spontaneous hematomas. HISTORY OF TIA Continue clopidogrel. ASTHMA Symptomatically stable. Chest x-ray shows chronic interstitial disease, no apparent acute infiltrates. Continue usual meds. Consult Pulmonary Medicine if any pulmonary concerns. CKD III Serum creatine 1.2. Follow. GERD Continue pantoprazole. BPH Continue finasteride and terazosin. VTE PROPHYLAXIS Moderate risk for DVT. No anticoagulants due to history of spontaneous hematomas. SCD's. Ambulate. RESUSCITATION STATUS Discussed with patient. He has a living will. He would like resuscitation attempted in the event of a cardiopulmonary arrest if there is a reasonable chance of a meaningful recovery, but does not want prolonged extraordinary measures if prognosis is poor. Therefore, code status = "Level 1" (full resuscitation). DISPOSITION Observation status on Telemetry Unit. Expected discharge to home. Family Medicine follow-up with Dr. Dionte Banda. Cardiology follow-up with Dr. Souza. Pulmonary follow-up with Dr. Martinez. . VTE Prophylaxis Given or contraindicated: SCD's
[2017-06-03] MEDS ORDERED: NITROGLYCERIN 0.4 MG SL PER TAB CHARGE SL PRN (04:45)
[2017-06-03] MEDS ORDERED: MoRPHine SULFATE 2 MG/ML CARP IV PRN (04:45)
[2017-06-03] MEDS ORDERED: ACETAMINOPHEN 325 MG TAB PO PRN (04:45)
[2017-06-03] MEDS ORDERED: ALUMINUM/MAGNESIUM/SIMETH (MAALOX MAX) 30 ML UDC PO PRN (04:45)
[2017-06-03] MEDS ORDERED: POLYETHYLENE (MIRALAX) 17 GM PACK PO PRN (04:45)
[2017-06-03] MEDS ORDERED: LEVALBUTEROL 0.63MG/3 ML NEB INH PRN (04:45)
[2017-06-03] MEDS ORDERED: BISACODYL 5 MG TABEC PO PRN (04:45)
[2017-06-03] MEDS ORDERED: IV FLUIDS COMPLETED PRN (07:00)
[2017-06-03] MEDS: IPRATROPIUM BROMIDE NEB SOLN 0.02% 2.5 ML VIAL INH SCH ×4 (07:17→19:04)
[2017-06-03] MEDS: LEVALBUTEROL 1.25MG/0.5ML NEB INH SCH ×4 (07:17→19:04)
--- NOTE | 2017-06-03 07:18 | DIAGNOSTIC IMAGING REPORT ---
CHEST ONE VIEW PORTABLE HISTORY: Left-sided chest pain. COMPARISON: Chest 05/13/2017. FINDINGS: No pneumothorax. No pleural effusions. Left-sided dual-chamber pacemaker. Mild emphysema. Mild diffuse interstitial thickening persists. The heart remains borderline enlarged. IMPRESSION: No change in the mild emphysema and diffuse interstitial thickening. No new focal lung consolidations. Electronically signed by: Thee Hernandez M.D. 06/03/2017 7:16 AM Dictated Date/Time: 06/03/2017 7:15 AM
[2017-06-03] MEDS: BUDESONIDE/FORMOTEROL FUMARATE 160/4.5 60 PUFFS/INHALER INH SCH ×2 (07:58→20:26)
[2017-06-03] MEDS: PANTOprazole SOD 40 MG TAB PO SCH ×2 (07:58→20:27)
[2017-06-03] MEDS: MULTIVITAMIN TAB PO SCH (07:58)
[2017-06-03] MEDS: VERAPAMIL HCL 180 MG TABCR PO SCH (07:59)
[2017-06-03] MEDS: FINASTERIDE 5 MG TAB PO SCH (07:59)
[2017-06-03] MEDS: LORATADINE 10 MG TAB PO SCH (08:00)
[2017-06-03] MEDS: GUAIFENESIN 600 MG TABCR PO SCH ×2 (08:00→20:27)
[2017-06-03] MEDS: CLOPIDOGREL BISULFATE 75 MG TAB PO SCH (08:00)
[2017-06-03] MEDS: POTASSIUM CHLORIDE 10 MEQ TABCR PO SCH (08:00)
[2017-06-03 08:35] LABS: CHOLESTEROL 133 mg/dl (0-200); CHOLESTEROL/HDL RATIO 2.9; CKMB/CK RATIO 3.2 (0-3.0); HDL CHOLESTEROL 46 mg/dl; LDL CHOLESTEROL CALCULATED 73 mg/dl; TRIGLYCERIDES 68 mg/dl (0-150); VERY LOW DENSITY LIPOPROT CALC 14 mg/dl
[2017-06-03] MEDS ORDERED: OPTIRAY 320 IV PRN (08:45)
--- NOTE | 2017-06-03 10:40 | CARDIOLOGY CONSULTATION ---
DATE OF CONSULTATION: 06/03/2017 REFERRING PHYSICIAN: Dr. Cash. INDICATIONS: Left flank and chest discomfort. HISTORY OF PRESENT ILLNESS: The patient is a complex 86-year-old male whose history is notable for: 1. From a cardiac standpoint, paroxysmal and now persistent atrial fibrillation/flutter. 2. 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 3. History of past atrial flutter ablation with recurrence of arrhythmias. 4. Chronic bronchiectasis and asthmatic lung disease with recent exacerbations. 5. History of contraindication to chronic anticoagulation due to multiple issues, recurrent bleeding and hematomas. The patient presents now to the hospital after having experienced left-sided flank, upper abdominal pain as well as left chest pain with positional movement and when lying flat. Symptoms yesterday lasted 6-8 hours before ER presentation and have gradually added throughout the night. Despite this extended episode of chest pain and discomfort, he has had no elevation in cardiac enzymes. His history is notable for multiple exacerbations of asthmatic lung disease in the recent past. He has now been off corticosteroids and antibiotics for approximately 2 weeks. He notes no fevers, chills or productive cough. Continues to use oxygen at least 3 times a day with nebulizer at night, has been using CPAP as well at night due to underlying history of obstructive lung disease and sleep apnea. He notes difficulties with using the mask now 9 months in duration and is frustrated with his inability to gain adequate fit. He denies fevers or chills. Notes no productive cough, though has a chronic coarse cough, aided with use of daily vibration vest. Notes no melena, hematochezia, dysuria or hematuria. Does get indigestion and heartburn at times. Notes no rash or arthritic complaints. ALLERGIES: NOTED TO BE ASPIRIN, IBUPROFEN AND NONSTEROIDALS. MEDICATIONS: Prior to hospitalization were Gaviscon 5 mL t.i.d., Astelin nasal spray, Dulcolax p.r.n., Symbicort 2 puffs b.i.d., calcium with vitamin D 1 tablet b.i.d., clopidogrel 75 mg per day, digoxin 125 mcg p.o. daily, Proscar 5 mg p.o. daily, guaifenesin 600 q. 12, oxygen 2 liters nasal cannula with CPAP at night and during the day intermittently, Atrovent nebulizer t.i.d., levalbuterol nebulizer q. 6 hours p.r.n., levalbuterol inhaler 2 puffs q. 8 hours p.r.n., Claritin 10 mg daily, Singulair 10 mg p.o. day, multivitamin per day, Protonix 20 mg b.i.d., potassium chloride 10 mEq daily, terazosin 2 mg at bedtime, verapamil 180 mg per day. PAST SURGICAL HISTORY: Notable for prior cholecystectomy, pacemaker insertion as described with generator exchange in 08/2016, history of lymph node biopsy. FAMILY HISTORY: Notable for heart disease in mother and sister. SOCIAL HISTORY: The patient is a current nonsmoker. Very rare alcohol user. Notes lifelong no use of tobacco. He is sedentary about his home, limited predominantly by pulmonary issues. PHYSICAL EXAMINATION: VITAL SIGNS: Heart rate this morning 65, blood pressure is 117/72, O2 saturations are 93% on room air. Telemetry reveals AFib/flutter with controlled ventricular response rate and intermittent ventricular pacing. HEENT: Normocephalic and atraumatic. NECK: Thin. There is no distinct jugular venous distention. LUNGS: Reveal coarse bronchiectatic cough with forced cough, scattered wheezes, left slightly greater than right. CARDIOVASCULAR: Irregularly irregular with intermittent ventricular pacing. There is a grade 1/6 systolic murmur. There is no diastolic murmur. ABDOMEN: Soft, nontender. There is no palpable hepatosplenomegaly. There is no hepatojugular reflux. No rebound or guarding. EXTREMITIES: Without cyanosis or clubbing. There is trace pedal edema only. There are intact distal pulses of 2/4. CHEST: Reveals minimal tenderness on palpation. DATA: Chest x-ray reveals mild emphysematous changes as well as diffuse interstitial thickening without focal consolidation. EKG reveals atrial fibrillation with intermittent ventricular pacing, right bundle-branch block. LABORATORY STUDIES: White cell count 6.9, hemoglobin is 14.5. Sodium is 144, potassium is 3.5, chloride is 110, bicarbonate is 27, BUN is 27, creatinine is 1.2. Serial CKs were 111 and 106. Serial troponins were less than 0.03 and less than 0.015. Cholesterol on no medical therapies was 133, LDL 73, HDL 46. AST and ALT are normal. D-dimer was elevated at 760. IMPRESSION: Complex 86-year-old male with history of chronic asthmatic and bronchiectatic lung disease with multiple recent exacerbations, now off antibiotics and corticosteroid. He does continue to use oxygen, CPAP, nebulizer as well as daily percussion vest. 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 Initial cardiac enzymes have been negative x2, that will be followed, and despite symptoms of greater than 6-8 hours in duration, no significant evolution in EKGs or enzymes. I agree with plan of CAT scan as ordered. Echocardiogram will be ordered. We will continue current cardiac medications which include verapamil and digoxin. Echocardiogram will be reviewed to assess for new wall motion abnormalities or pericardial effusion. We will review CAT scan as available. Findings currently do not suggest an acute ischemic component to the patient's complaints, though we will follow in the hospital. Consider stress testing if symptoms become more defined. MTDD
--- NOTE | 2017-06-03 11:59 | DIAGNOSTIC IMAGING REPORT ---
CHEST CTA for PULMONARY ARTERIES CT DOSE: 572.46 mGycm HISTORY: Atypical chest pain. TECHNIQUE: Multiaxial CT images of the chest were performed following the intravenous administration of contrast to evaluate the pulmonary arteries. Maximal intensity projection images were also obtained. A dose lowering technique was utilized adhering to the principles of ALARA. COMPARISON STUDY: Chest CT 11/25/1716. FINDINGS: Normal caliber thoracic aorta with no evidence for dissection. Coronary artery calcifications. The heart is borderline enlarged. No filling defects within the pulmonary arteries to suggest pulmonary embolus. No pneumothorax. No pleural effusions. The central airways are patent. Biapical pleural-parenchymal scarring, unchanged. Chronic interstitial thickening persists. Patchy densities within the base of the right lower lobe posteriorly have slightly improved. Stable 9 x 5 mm subpleural nodule along the right minor fissure. This demonstrates greater than 2 year stability and is likely benign. Mild bronchial wall thickening within the lower lobes persists. No suspicious lytic or blastic osseous lesions. No pericardial effusion. Slightly prominent AP window lymph nodes which have slightly increased in size. Dominant 1 cm lymph node previously measured 8 mm. IMPRESSION: 1. No evidence for pulmonary embolus. 2. Patchy airspace opacity within the base of the right lower lobe which has improved. This may represent a resolving pneumonia. 3. Chronic interstitial thickening persists. 4. A few slightly prominent AP window lymph nodes which have slightly increased in size. Electronically signed by: Thee Hernandez M.D. 06/03/2017 11:58 AM Dictated Date/Time: 06/03/2017 11:48 AM
[2017-06-03] MEDS ORDERED: PERFLUTREN LIPID MICROSPHERE (DEFINITY) IV ONE (12:34)
[2017-06-03 14:48] LABS: CKMB/CK RATIO 3.7 (0-3.0)
--- NOTE | 2017-06-03 15:00 | Progress Note ---
Internal Med Progress Note Date of Service: Jun 03, 2017. Provider Documentation: SUBJECTIVE: The patient was seen and examined Admitted with Left lower chest pain worse with deep breathing No other significant symptoms associated with it OBJECTIVE: Vital Signs-as noted below Exam: General-NO distress at rest Eyes-normal ENT-normal Neck-supple Lungs-clear to ausucltate bilaterally Heart-Irregular,no murmur appreciated Abdomen-Benign,no masses,bowel sound present Extremities-No edema Neuro-AAOx3 Lab data as noted below. ASSESSMENT & PLAN: CHEST PAIN Left-sided chest pain at rest, somewhat pleuritic in nature. Check serial cardiac markers-Negative for any ACS ; D-dimer >700 ,CTA was negative for any Pulmonary Embolism Intolerant or allergic to aspirin. Continue clopidogrel. No beta don due to asthma. Continue verapamil. Denies any pain today Appreciate Cardiology input ECHO-pending Chronic AF Continue digoxin and verapamil. Not anticoagulated due to history of spontaneous hematomas. Rate is controlled ASTHMA Symptomatically stable. Chest x-ray shows chronic interstitial disease, no apparent acute infiltrates. No acute symptoms Continue current medications Will consult Pulmonary if worsens HISTORY OF TIA Continue clopidogrel. No acute symptoms CKD III Serum creatine 1.2. Monitor Kidney function GERD Continue pantoprazole. BPH Continue finasteride and terazosin. VTE PROPHYLAXIS Moderate risk for DVT. No anticoagulants due to history of spontaneous hematomas. SCD's. Ambulate. RESUSCITATION STATUS Discussed with patient. He has a living will. He would like resuscitation attempted in the event of a cardiopulmonary arrest if there is a reasonable chance of a meaningful recovery, but does not want prolonged extraordinary measures if prognosis is poor. Therefore, code status = "Level 1" (full resuscitation). DISPOSITION Observation status on Telemetry Unit. Expected discharge to home. Family Medicine follow-up with Dr. Dionte Banda. Cardiology follow-up with Dr. Souza. Pulmonary follow-up with Dr. Martinez. Vital Signs: Date Time Temp Pulse Resp B/P (MAP) Pulse Ox O2 Delivery O2 Flow Rate FiO2 06/03/17 12:00 Nasal Cannula 2.0 06/03/17 08:04 36.3 65 18 117/72 (87) 93 Room Air 06/03/17 08:00 Nasal Cannula 2.0 06/03/17 07:17 81 18 95 Nasal Cannula 2.0 06/03/17 05:13 36.3 100 18 173/71 94 Nasal Cannula 2.0 06/03/17 04:29 81 23 125/86 93 06/03/17 04:02 81 23 125/86 93 Nasal Cannula 2.0 06/03/17 03:27 86 23 137/85 94 Nasal Cannula 2.0 06/03/17 02:19 36.4 86 19 141/76 94 Nasal Cannula 2.0 06/03/17 02:19 94 Nasal Cannula 2.0 06/03/17 02:19 94 Nasal Cannula 2.0 06/03/17 02:18 96 06/03/17 02:16 84 Lab Results: Results Past 24 Hours Test 06/03/17 02:45 06/03/17 02:54 06/03/17 07:48 06/03/17 10:00 Range/Units White Blood Count 6.94 4.8-10.8 K/uL Red Blood Count 4.64 4.7-6.1 M/uL Hemoglobin 14.5 14.0-18.0 g/dL Hematocrit 41.8 42-52 % Mean Corpuscular Volume 90.1 80-100 fL Mean Corpuscular Hemoglobin 31.3 25-34 pg Mean Corpuscular Hemoglobin Concent 34.7 32-36 g/dl Platelet Count 167 130-400 K/uL Mean Platelet Volume 9.7 7.4-10.4 fL Neutrophils (%) (Auto) 42.8 % Lymphocytes (%) (Auto) 43.8 % Monocytes (%) (Auto) 6.8 % Eosinophils (%) (Auto) 5.9 % Basophils (%) (Auto) 0.4 % Neutrophils # (Auto) 2.97 1.4-6.5 K/uL Lymphocytes # (Auto) 3.04 1.2-3.4 K/uL Monocytes # (Auto) 0.47 0.11-0.59 K/uL Eosinophils # (Auto) 0.41 0-0.5 K/uL Basophils # (Auto) 0.03 0-0.2 K/uL RDW Standard Deviation 45.8 36.4-46.3 fL RDW Coefficient of Variation 13.8 11.5-14.5 % Immature Granulocyte % (Auto) 0.3 % Immature Granulocyte # (Auto) 0.02 0.00-0.02 K/uL Sodium Level 144 136-145 mmol/L Potassium Level 3.5 3.5-5.1 mmol/L Chloride Level 110 98-107 mmol/L Carbon Dioxide Level 27 21-32 mmol/L Anion Gap 7.0 3-11 mmol/L Blood Urea Nitrogen 27 7-18 mg/dl Creatinine 1.20 0.60-1.40 mg/dl Est Creatinine Clear Calc Drug Dose 55.7 ml/min Estimated GFR () 63.1 Estimated GFR (Non- 54.4 BUN/Creatinine Ratio 22.6 10-20 Random Glucose 92 70-99 mg/dl Calcium Level 8.6 8.5-10.1 mg/dl Total Bilirubin 0.9 0.2-1 mg/dl Direct Bilirubin 0.2 0-0.2 mg/dl Aspartate Amino Transf (AST/SGOT) 22 15-37 U/L Alanine Aminotransferase (ALT/SGPT) 28 12-78 U/L Alkaline Phosphatase 65 45-117 U/L Total Creatine Kinase 111 106 39-308 U/L Creatine Kinase MB 3.9 3.4 0.5-3.6 ng/ml Creatine Kinase MB Ratio 3.5 3.2 0-3.0 Total Protein 6.5 6.4-8.2 gm/dl Albumin 3.4 3.4-5.0 gm/dl Bedside Troponin I < 0.030 0-0.045 ng/ml D-Dimer 760 0-500 ug/L FEU Troponin I < 0.015 0-0.045 ng/ml Triglycerides Level 68 0-150 mg/dl Cholesterol Level 133 0-200 mg/dl HDL Cholesterol 46 mg/dl LDL Cholesterol, Calculated 73 mg/dl VLDL Cholesterol, Calculated 14 mg/dl Cholesterol/HDL Ratio 2.9 Digoxin Level 0.6 0.8-2.0 ng/ml Test 06/03/17 13:59 Range/Units Total Creatine Kinase 101 39-308 U/L Creatine Kinase MB 3.7 0.5-3.6 ng/ml Creatine Kinase MB Ratio 3.7 0-3.0 Troponin I < 0.015 0-0.045 ng/ml
[2017-06-03] MEDS: DIGOXIN 0.125 MG TAB PO SCH (15:37)
[2017-06-03] MEDS ORDERED: POTASSIUM CHLORIDE 10 MEQ TABCR PO ONE (16:30)
--- NOTE | 2017-06-03 16:56 | ECHOCARDIOGRAM REPORT ---
*NOTICE TO RECEIVING DEMOCRAT AGENCY This information is strictly Confidential and protected under [place] law. [place] law prohibits you from making any further disclosure of this information unless further disclosure is expressly permitted by the written consent of the person to whom it pertains or is authorized by law. A general authorization for the release of medical or other information is not sufficient for this purpose. Hospital accepts no responsibility if the information is made available to any other person, INCLUDING THE PATIENT. Interpretation Summary * Name: HAYLEY HOLLOWAY Study Date: 06/03/2017 10:25 AM BP: 117/72 mmHg * Patient Location: [facility]\S\N288\S\1 HR: 79 * : 1930 (M/d/yyyy) Gender: Male Height: 72 in * Age: 86 yrs Ethnicity: [place] Weight: 205 lb * Ordering Physician: Mynor Souza * Referring Physician: Self, Referred * Performed By: Teri Pettit RCS * * Reason For Study: CHEST PAIN * BSA: 2.2 m2 * The study was technically adequate. * Compared to prior study, there is no significant change. * -- Conclusions -- * Left ventricular systolic function is normal. * Ejection Fraction = 55-60%. * The left ventricular wall motion is normal. * The right ventricle is normal size. * The right ventricular systolic function is qualitatively normal. Procedure Details * A complete two-dimensional transthoracic echocardiogram was performed (2D, M-mode, Doppler and color flow Doppler). * A contrast injection of Definity was performed to improve assessment of LV function. * Contrast was injected into an intravenous site in the left arm. * One vial of Definity ultrasound contrast was diluted in normal saline to a total volume of 10 ml. A total of '2' ml of solution was administered during imaging. * Lot # [id number] of Definity utilized for procedure. * Expiration date JUN 25. * The attending nurse who injected the contrast agent was DESHAWN CHRISTOPHER CPL, RN. Left Ventricle * The left ventricle is normal in size. * There is mild concentric left ventricular hypertrophy. * Left ventricular systolic function is normal. * Ejection Fraction = 55-60%. * The left ventricular wall motion is normal. Right Ventricle * The right ventricle is normal size. * The right ventricular systolic function is qualitatively normal. Atria * The left atrial size is normal. * Right atrial size is normal. * There is no evidence of atrial septal defect, but resolution does not allow assessment for a patent foramen ovale. Mitral Valve * The mitral valve is normal. * There is no mitral valve stenosis. * There is mild mitral regurgitation. Tricuspid Valve * The tricuspid valve is normal. * There is no tricuspid stenosis. * There is trace tricuspid regurgitation. * Doppler findings do not suggest pulmonary hypertension. Aortic Valve * The aortic valve is trileaflet. * Aortic stenosis is absent. * There is no significant aortic regurgitation. Pulmonic Valve * The pulmonary valve is not well seen, but the Doppler examination is normal without significant regurgitation or stenosis. Great Vessels * The aortic root is normal size. Pericardium/Pleural * There is no pericardial effusion. Great Vessels * Normal inferior vena cava diameter and respiratory variation suggests normal central venous pressure. MMode 2D Measurements and Calculations IVSd 1.6 cm IVSs 1.7 cm LVIDd 4.3 cm LVIDs 3.4 cm LVPWd 1.4 cm LVPWs 1.6 cm IVS/LVPW 1.1 FS 21.0 % EDV(Teich) 80.9 ml ESV(Teich) 46.1 ml EF(Teich) 43.0 % EDV(cubed) 76.8 ml ESV(cubed) 37.9 ml EF(cubed) 50.7 % % IVS thick 6.2 % % LVPW thick 18.4 % LV mass(C)d 245.7 grams LV mass(C)dI 114.2 grams/m\S\2 LV mass(C)s 213.3 grams LV mass(C)sI 99.1 grams/m\S\2 SV(Teich) 34.8 ml SI(Teich) 16.2 ml/m\S\2 SV(cubed) 39.0 ml SI(cubed) 18.1 ml/m\S\2 Ao root diam 3.2 cm Ao root area 7.8 cm\S\2 LVOT diam 2.0 cm LVOT area 3.1 cm\S\2 Doppler Measurements and Calculations MV E max viktoria 96.0 cm/sec MV P1/2t max viktoria 108.7 cm/sec MV P1/2t 105.2 msec MVA(P1/2t) 2.1 cm\S\2 MV dec slope 302.6 cm/sec\S\2 MV dec time 0.27 sec Ao V2 max 197.7 cm/sec Ao max PG 15.6 mmHg Ao max PG (full) 10.6 mmHg DESTINY(V,A) 1.7 cm\S\2 DESTINY(V,D) 1.7 cm\S\2 LV V1 max PG 5.0 mmHg LV V1 max 111.7 cm/sec MR max viktoria 479.0 cm/sec MR max PG 91.8 mmHg TR max viktoria 228.0 cm/sec
[2017-06-03] MEDS: MONTELUKAST SOD 10 MG TAB PO SCH (20:28)
[2017-06-04] VITALS (9 sets, daily range): BP systolic 112–132; BP diastolic 58–87; PULSE 46–111; TEMP 36.4–37.1; O2SAT 2–96
[2017-06-04] MEDS: LEVALBUTEROL 1.25MG/0.5ML NEB INH SCH ×4 (07:30→20:25)
[2017-06-04] MEDS: IPRATROPIUM BROMIDE NEB SOLN 0.02% 2.5 ML VIAL INH SCH ×4 (07:30→20:25)
[2017-06-04] MEDS: BUDESONIDE/FORMOTEROL FUMARATE 160/4.5 60 PUFFS/INHALER INH SCH ×2 (08:23→21:09)
[2017-06-04] MEDS: VERAPAMIL HCL 180 MG TABCR PO SCH (08:23)
[2017-06-04] MEDS: LORATADINE 10 MG TAB PO SCH (08:23)
[2017-06-04] MEDS: POTASSIUM CHLORIDE 10 MEQ TABCR PO SCH (08:24)
[2017-06-04] MEDS: PANTOprazole SOD 40 MG TAB PO SCH ×2 (08:24→21:08)
[2017-06-04] MEDS: GUAIFENESIN 600 MG TABCR PO SCH ×2 (08:24→21:08)
[2017-06-04] MEDS: MULTIVITAMIN TAB PO SCH (08:24)
[2017-06-04] MEDS: CLOPIDOGREL BISULFATE 75 MG TAB PO SCH (08:24)
[2017-06-04] MEDS: FINASTERIDE 5 MG TAB PO SCH (08:24)
[2017-06-04] MEDS ORDERED: NURSING VERBAL MED ORDER ONE (11:15)
--- NOTE | 2017-06-04 11:33 | PROGRESS NOTE ---
DATE: 06/04/2017 CONSULTATION FOLLOWUP NOTE The patient seen and examined. Chart, medications, telemetry reviewed. SUBJECTIVE: Slept poorly last night. Notes usually uses CPAP at home, was not using it here. Notes no chest pains. Notes no flank pain. Notes no pleuritic pain. Does have increasing sputum production and cough, now coughing with deep inspiration. Notes no overt fevers or chills. OBJECTIVE: VITAL SIGNS: Heart rate is 70, blood pressure is 132/79. Telemetry reveals atrial fibrillation with intermittent ventricular pacing. NECK: Thin. There is no jugular venous distention. LUNGS: Reveal coarse bronchitic sounds, both lung mcknight with increased wheezing with bronchitic cough with forced expiration. CARDIOVASCULAR: Irregularly irregular. There is no S3 gallop. ABDOMEN: Soft, nontender. EXTREMITIES: Without cyanosis or clubbing. There is no peripheral edema. DATA: Laboratory studies, cardiac enzymes x3 have been negative. EKG reveals atrial fibrillation with intermittent ventricular pacing. No acute ST segment changes. Echocardiogram limited by underlying pulmonary issues. Notes preserved LV systolic function without wall motion abnormality. IMPRESSION: An 86-year-old male with significant underlying asthmatic and chronic bronchitis, bronchiectasis, chronic atrial fibrillation, admitted with atypical chest pain. Pains do not appear to be ischemic or secondary to cardiac origin. Cardiac enzymes, EKGs and echocardiogram unrevealing. Blood pressures and heart issues are well controlled. We would recommend treating underlying pulmonary issues including use of patient's chronic CPAP at night. He also uses a percussion vest at home.
[2017-06-04] MEDS: DIGOXIN 0.125 MG TAB PO SCH (15:59)
--- NOTE | 2017-06-04 17:43 | Progress Note ---
Internal Med Progress Note Date of Service: Jun 04, 2017. Provider Documentation: SUBJECTIVE: The patient was seen and examined Admitted with Left lower chest pain worse with deep breathing No other significant symptoms associated with it No more chest pain ,SOB and palpitation Not yet ready to be discharged OBJECTIVE: Vital Signs-as noted below Exam: General-N0 distress at rest Eyes-normal ENT-normal Neck-supple Lungs-clear to ausucltate bilaterally Heart-Irregular,no murmur appreciated Abdomen-Benign,no masses,bowel sound present Extremities-No edema Neuro-AAOx3 Lab data as noted below. ASSESSMENT & PLAN: CHEST PAIN Left-sided chest pain at rest, somewhat pleuritic in nature. Check serial cardiac markers-Negative for any ACS ; D-dimer >700 ,CTA was negative for any Pulmonary Embolism Intolerant or allergic to aspirin. Continue clopidogrel. No beta don due to asthma. Continue verapamil. Denies any pain today Appreciate Cardiology input ECHO:: * Left ventricular systolic function is normal. * Ejection Fraction = 55-60%. * The left ventricular wall motion is normal. * The right ventricle is normal size. * The right ventricular systolic function is qualitatively normal. Denies any more pain Chronic AF Continue digoxin and verapamil. Not anticoagulated due to history of spontaneous hematomas. Rate is controlled No acute issue ASTHMA Symptomatically stable. Chest x-ray shows chronic interstitial disease, no apparent acute infiltrates. No acute symptoms Continue current medications Will consult Pulmonary if worsens Will need OP appointment with Pul soon HISTORY OF TIA Continue clopidogrel. No acute symptoms CKD III Serum creatine 1.2. Monitor Kidney function GERD Continue pantoprazole. BPH Continue finasteride and terazosin. VTE PROPHYLAXIS Moderate risk for DVT. No anticoagulants due to history of spontaneous hematomas. SCD's. Ambulate. RESUSCITATION STATUS Discussed with patient. He has a living will. He would like resuscitation attempted in the event of a cardiopulmonary arrest if there is a reasonable chance of a meaningful recovery, but does not want prolonged extraordinary measures if prognosis is poor. Therefore, code status = "Level 1" (full resuscitation). DISPOSITION Observation status on Telemetry Unit. Expected discharge to home. Family Medicine follow-up with Dr. Dionte Banda. Cardiology follow-up with Dr. Souza. Pulmonary follow-up with Dr. Martinez. PT/OT evaluation Likely discharge tomorrow Vital Signs: Date Time Temp Pulse Resp B/P (MAP) Pulse Ox O2 Delivery O2 Flow Rate FiO2 06/04/17 16:00 Nasal Cannula 2.0 06/04/17 15:59 85 06/04/17 15:39 82 18 94 Nasal Cannula 2.0 06/04/17 15:16 36.6 95 18 124/74 (91) 2 Nasal Cannula 06/04/17 12:00 Nasal Cannula 2.0 06/04/17 12:00 36.5 46 22 112/58 (76) 96 Nasal Cannula 2.0 06/04/17 11:50 111 18 93 Nasal Cannula 2.0 06/04/17 07:45 Nasal Cannula 2.0 06/04/17 07:30 36.4 70 22 132/79 (96) 96 Nasal Cannula 2.0 06/04/17 07:30 87 18 96 Nasal Cannula 2.0 06/04/17 04:27 36.4 87 16 122/87 (99) 91 06/04/17 04:00 Nasal Cannula 2.0 06/04/17 00:37 37.1 76 20 115/72 (86) 96 2.0 06/04/17 00:00 Nasal Cannula 2.0 06/03/17 20:13 Nasal Cannula 2.0 06/03/17 19:55 36.4 66 20 128/81 (97) 95 Nasal Cannula 2.0 06/03/17 19:06 67 18 96 Nasal Cannula 2.0
[2017-06-04] MEDS ORDERED: NURSING DECISION MEDICATION ORDER SCH (19:45)
[2017-06-04] MEDS ORDERED: COUGH DROP (SUGAR FREE) LOZ 24 LOZ/1 BOX PO PRN (20:00)
[2017-06-04] MEDS: MONTELUKAST SOD 10 MG TAB PO SCH (21:08)
[2017-06-04] MEDS: ACETAMINOPHEN 500 MG TAB PO SCH (21:10)
[2017-06-04] MEDS: FLUTICASONE PROPIONATE NA SPR 16 GM BTL SCH (21:11)
[2017-06-05] VITALS (7 sets, daily range): BP systolic 107–116; BP diastolic 61–74; PULSE 70–90; TEMP 36.7–36.9; O2SAT 91–94
[2017-06-05] MEDS ORDERED: DOXYCYCLINE IV 100 MG in DEXTROSE 5% 100ML 100 ML IV ONE (00:36)
--- NOTE | 2017-06-05 00:38 | Progress Note ---
Internal Med Progress Note Date of Service: Jun 05, 2017. Provider Documentation: Made aware by RN of cough symptoms productive of clear white sputum. (Not present on admission.) Patient denies chest pain, shortness of breath, aspiration. No fever or chills. CT chest 06/03 showed right lower lobe infiltrate. AP HAP No sepsis Doxycycline for now Will relay to a.m. provider. Vital Signs: Date Time Temp Pulse Resp B/P (MAP) Pulse Ox O2 Delivery O2 Flow Rate FiO2 06/05/17 04:00 36.8 83 16 107/61 (76) 92 Nasal Cannula 2.0 06/05/17 04:00 Nasal Cannula 2.0 06/05/17 01:00 36.7 90 18 114/68 (83) 91 06/05/17 00:00 Nasal Cannula 2.0 06/04/17 20:25 91 20 92 Nasal Cannula 2.0 06/04/17 20:00 Nasal Cannula 2.0 06/04/17 19:34 36.5 72 18 118/67 (84) 94 Nasal Cannula 2.0 06/04/17 16:00 Nasal Cannula 2.0 06/04/17 15:59 85 06/04/17 15:39 82 18 94 Nasal Cannula 2.0 06/04/17 15:16 36.6 95 18 124/74 (91) 2 Nasal Cannula 06/04/17 12:00 Nasal Cannula 2.0 06/04/17 12:00 36.5 46 22 112/58 (76) 96 Nasal Cannula 2.0 06/04/17 11:50 111 18 93 Nasal Cannula 2.0 06/04/17 07:45 Nasal Cannula 2.0 06/04/17 07:30 36.4 70 22 132/79 (96) 96 Nasal Cannula 2.0 06/04/17 07:30 87 18 96 Nasal Cannula 2.0 Lab Results: Results Past 24 Hours Test 06/05/17 04:44 Range/Units
[2017-06-05] MEDS ORDERED: BENZONATATE 100MG CAP PO PRN (00:45)
[2017-06-05] MEDS: ACETAMINOPHEN 500 MG TAB PO SCH ×2 (05:41→14:00)
[2017-06-05] MEDS: IPRATROPIUM BROMIDE NEB SOLN 0.02% 2.5 ML VIAL INH SCH ×2 (07:02→11:18)
[2017-06-05] MEDS: LEVALBUTEROL 1.25MG/0.5ML NEB INH SCH ×2 (07:02→11:18)
[2017-06-05 07:27] LABS: HEMATOCRIT 40.2 % (42-52); MEAN CELL VOLUME 89.1 fL (80-100); MEAN CORPUSCULAR HEMOGLOBIN 30.6 pg (25-34); MEAN CORPUSCULAR HGB CONC 34.3 g/dl (32-36); MEAN PLATELET VOLUME 9.7 fL (7.4-10.4); PLATELET COUNT 158 K/uL (130-400); RED BLOOD COUNT 4.51 M/uL (4.7-6.1); WHITE BLOOD COUNT 5.93 K/uL (4.8-10.8)
[2017-06-05 08:00] LABS: BUN/CREATININE RATIO 17.8 (10-20); CALCIUM 8.7 mg/dl (8.5-10.1); CREATININE 1.3 mg/dl (0.60-1.40); POTASSIUM 3.9 mmol/L (3.5-5.1)
[2017-06-05] MEDS: GUAIFENESIN 600 MG TABCR PO SCH (08:09)
[2017-06-05] MEDS: BUDESONIDE/FORMOTEROL FUMARATE 160/4.5 60 PUFFS/INHALER INH SCH (08:09)
[2017-06-05] MEDS: FLUTICASONE PROPIONATE NA SPR 16 GM BTL SCH (08:09)
[2017-06-05] MEDS: PANTOprazole SOD 40 MG TAB PO SCH (08:09)
[2017-06-05] MEDS: VERAPAMIL HCL 180 MG TABCR PO SCH (08:09)
[2017-06-05] MEDS: LORATADINE 10 MG TAB PO SCH (08:09)
[2017-06-05] MEDS: FINASTERIDE 5 MG TAB PO SCH (08:09)
[2017-06-05] MEDS: CLOPIDOGREL BISULFATE 75 MG TAB PO SCH (08:09)
[2017-06-05] MEDS: POTASSIUM CHLORIDE 10 MEQ TABCR PO SCH (08:09)
[2017-06-05] MEDS: MULTIVITAMIN TAB PO SCH (08:09)
--- NOTE | 2017-06-05 09:48 | Progress Note ---
Internal Med Progress Note Date of Service: Jun 05, 2017. Provider Documentation: SUBJECTIVE: The patient was seen and examined Admitted with Left lower chest pain worse with deep breathing No other significant symptoms associated with it No more chest pain ,SOB and palpitation Has had some cough last night Started on Doxycycline OBJECTIVE: Vital Signs-as noted below Exam: General-N0 distress at rest Eyes-normal ENT-normal Neck-supple Lungs-clear to ausucltate bilaterally Heart-Irregular,no murmur appreciated Abdomen-Benign,no masses,bowel sound present Extremities-No edema Neuro-AAOx3 Lab data as noted below. ASSESSMENT & PLAN: CHEST PAIN-Non Cardiac Left-sided chest pain at rest, somewhat pleuritic in nature. Check serial cardiac markers-Negative for any ACS ; D-dimer >700 ,CTA was negative for any Pulmonary Embolism Intolerant or allergic to aspirin. Continue clopidogrel. No beta don due to asthma. Continue verapamil. Denies any pain today Appreciate Cardiology input ECHO:: * Left ventricular systolic function is normal. * Ejection Fraction = 55-60%. * The left ventricular wall motion is normal. * The right ventricle is normal size. * The right ventricular systolic function is qualitatively normal. Denies any more pain Early /Resolving Pneumonia Has had cough with productive sputum Started on Doxycycline Chronic AF Continue digoxin and verapamil. Not anticoagulated due to history of spontaneous hematomas. Rate is controlled No acute issue ASTHMA Symptomatically stable. Chest x-ray shows chronic interstitial disease, no apparent acute infiltrates. No acute symptoms Continue current medications Will consult Pulmonary if worsens Will need OP appointment with Pul soon-will arrange Started on Doxycycline HISTORY OF TIA Continue clopidogrel. No acute symptoms CKD III Serum creatine 1.2. Monitor Kidney function GERD Continue pantoprazole. BPH Continue finasteride and terazosin. VTE PROPHYLAXIS Moderate risk for DVT. No anticoagulants due to history of spontaneous hematomas. SCD's. Ambulate. RESUSCITATION STATUS Discussed with patient. He has a living will. He would like resuscitation attempted in the event of a cardiopulmonary arrest if there is a reasonable chance of a meaningful recovery, but does not want prolonged extraordinary measures if prognosis is poor. Therefore, code status = "Level 1" (full resuscitation). DISPOSITION Observation status on Telemetry Unit. Expected discharge to home. Family Medicine follow-up with Dr. Dionte Banda. Cardiology follow-up with Dr. Souza. Pulmonary follow-up with Dr. Martinez. PT/OT evaluation Discharge today Vital Signs: Date Time Temp Pulse Resp B/P (MAP) Pulse Ox O2 Delivery O2 Flow Rate FiO2 06/05/17 08:00 Nasal Cannula 2.0 06/05/17 07:24 36.9 87 18 116/74 (88) 93 Room Air 06/05/17 07:04 82 18 92 Room Air 06/05/17 04:00 36.8 83 16 107/61 (76) 92 Nasal Cannula 2.0 06/05/17 04:00 Nasal Cannula 2.0 06/05/17 01:00 36.7 90 18 114/68 (83) 91 06/05/17 00:00 Nasal Cannula 2.0 06/04/17 20:25 91 20 92 Nasal Cannula 2.0 06/04/17 20:00 Nasal Cannula 2.0 06/04/17 19:34 36.5 72 18 118/67 (84) 94 Nasal Cannula 2.0 06/04/17 16:00 Nasal Cannula 2.0 06/04/17 15:59 85 06/04/17 15:39 82 18 94 Nasal Cannula 2.0 06/04/17 15:16 36.6 95 18 124/74 (91) 2 Nasal Cannula 06/04/17 12:00 Nasal Cannula 2.0 06/04/17 12:00 36.5 46 22 112/58 (76) 96 Nasal Cannula 2.0 06/04/17 11:50 111 18 93 Nasal Cannula 2.0 Lab Results: Results Past 24 Hours Test 06/05/17 07:09 Range/Units White Blood Count 5.93 4.8-10.8 K/uL Red Blood Count 4.51 4.7-6.1 M/uL Hemoglobin 13.8 14.0-18.0 g/dL Hematocrit 40.2 42-52 % Mean Corpuscular Volume 89.1 80-100 fL Mean Corpuscular Hemoglobin 30.6 25-34 pg Mean Corpuscular Hemoglobin Concent 34.3 32-36 g/dl RDW Standard Deviation 45.6 36.4-46.3 fL RDW Coefficient of Variation 14.0 11.5-14.5 % Platelet Count 158 130-400 K/uL Mean Platelet Volume 9.7 7.4-10.4 fL Sodium Level 141 136-145 mmol/L Potassium Level 3.9 3.5-5.1 mmol/L Chloride Level 108 98-107 mmol/L Carbon Dioxide Level 23 21-32 mmol/L Anion Gap 10.0 3-11 mmol/L Blood Urea Nitrogen 23 7-18 mg/dl Creatinine 1.30 0.60-1.40 mg/dl Est Creatinine Clear Calc Drug Dose 44.8 ml/min Estimated GFR () 57.3 Estimated GFR (Non- 49.4 BUN/Creatinine Ratio 17.8 10-20 Random Glucose 88 70-99 mg/dl Calcium Level 8.7 8.5-10.1 mg/dl Magnesium Level 2.0 1.8-2.4 mg/dl
[2017-06-05] MEDS ORDERED: DXY100 PO (11:33)
[2017-06-05] MEDS ORDERED: BENZ100C7 PO (11:33)
[2017-06-05] MEDS ORDERED: LCTX PO (11:33)
--- NOTE | 2017-06-05 11:36 | Discharge Instructions ---
Discharge Instructions Date of Service Jun 05, 2017. Admission Reason for Admission: Chest Pain Discharge Discharge Diagnosis / Problem: Chest pain-NO ACS and no Pul Embolism, Pleurisy.Bronchitis Discharge Goals Goal(s): Prevent Disease Progression Activity Recommendations Activity Limitations: resume your previous activity . Instructions / Follow-Up Instructions / Follow-Up Dr Banda on 06/10/17 at 1:45 PM Current Hospital Diet Patient's current hospital diet: AHA Diet (Heart Healthy) Discharge Diet Recommended Diet: AHA Diet (Heart Healthy) Pending Studies Studies pending at discharge: no Laboratory Results Lipid Panel Test 06/03/17 07:48 Range/Units Triglycerides Level 68 0-150 mg/dl Cholesterol Level 133 0-200 mg/dl HDL Cholesterol 46 mg/dl Cholesterol/HDL Ratio 2.9 LDL Cholesterol, Calculated 73 mg/dl Medical Emergencies . Who to Call and When: Medical Emergencies: If at any time you feel your situation is an emergency, please call 911 immediately. . Non-Emergent Contact Non-Emergency issues call your: Primary Care Provider . 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 "Provider Documentation" section prepared by Flaca Gupta. . VTE Core Measure Inpt VTE Proph given/why not?: SCD's
--- NOTE | 2017-06-05 11:46 | Discharge Summary ---
Discharge Summary Date of Service Jun 05, 2017. Discharge Summary Admission Date: Jun 03, 2017 at 04:03 Discharge Date: Jun 05, 2017 Principal Diagnosis: Chest pain-NO ACS and no Pul Embolism,Pleurisy.Bronchitis Secondary Diagnoses/Problems: Please see H&P and Hospital Progress note Consultations: Cardiology Medication Reconciliation New Medications: Doxycycline Hyclate (Doxycycline Hyclate) 100 Mg Cap 100 MG PO BID, #14 Lactobacillus Acidophilus (Lactinex) Tab 2 TAB PO BID, #30 TAB Benzonatate (Benzonatate) 100 Mg Cap 100 MG PO Q8H PRN for Cough for 10 Days, #30 CAP Continued Medications: Aluminum Hydroxide-Mag Carb (Gaviscon) 1 Oliva Oliva 5 ML PO TID Azelastine Hcl (Astelin Nasal Llewellyn) 200 Sprays/30 Ml Llewellyn 2 SPRAYS NA BID, BTL Bisacodyl (Dulcolax) 5 Mg Tab 5 MG PO DAILY PRN for Constipation Budesonide/Formoterol Fumarate (Symbicort 160/4.5 Inhaler) 120 Puffs/ Aero 2 PUFFS INH BID Calcium Carbonate-Vitamin D (Calcium 600 + D) 1 Tab Tab 1 TAB PO BID Clopidogrel (Plavix) 75 Mg Tab 75 MG PO DAILY, TAB Digoxin (Digox) 125 Mcg Tab 125 MCG PO DAILY Finasteride (Proscar) 5 Mg Tab 5 MG PO DAILY, TAB Flunisolide (Nasal) (Flunisolide) 0.025 % Spr 2 SPRY MARVIN BID, #25 ML 3 Refills Guaifenesin La (Guaifenesin Er) 600 Mg Tabcr 600 MG PO Q12H, TAB Home O2 Therapy (Oxygen) Gas 2 LITERS NA hs with cpap Ipratropium [place] (Atrovent 0.02% Soln) 2.5 Ml Nebu 2.5 ML NEB TID PRN for Wheezing Levalbuterol Hcl (Levalbuterol) 1.25 Mg/0.5 Ml Neb 1 VIAL NEB Q6 PRN for cough/sob/wheezing Levalbuterol Tartrate (Levalbuterol Tartrate Hfa) 45 Mcg/Act Aer 2 PUFFS INH Q8 PRN for Wheezing Loratadine (Claritin) 10 Mg Tab 10 MG PO DAILY Misc Natural Products (Osteo Bi-Flex Advanced Tr) 1 Tab Tab 1 TAB PO BID Montelukast Sodium (Singulair) 10 Mg Tab 10 MG PO QPM Multivitamin (Multivitamin) Tab 1 TAB PO DAILY, TAB Pantoprazole (Protonix) 20 Mg Tab 20 MG PO BID Polyethylene Glycol 3350 (Miralax) 1 Pow Pow 17 GM PO DAILY PRN for Constipation Potassium Chloride (Micro-K Ext Rel) 10 Meq Capcr 10 MEQ PO DAILY, CAP Terazosin Hcl (Hytrin) 2 Mg Cap 2 MG PO HS, CAP Verapamil Hcl (Verapamil Hcl Sr) 180 Mg Cap 180 MG PO DAILY Admission Information HPI (per Admitting provider): 86 YO male followed by Dr. Dionte Banda for Family Medicine, Dr. Martinez for Pulmonary Medicine, and Dr. Souza for Cardiology. History of asthma, atrial fibrillation, and other problems outlined below. Developed chest pain this afternoon at rest. Chest pain described as a moderately severe ache, left-sided, nonradiating. Pain somewhat worse with inspiration. No fever. No unusual cough or dyspnea. No hemoptysis. No nausea or vomiting. Tried antacid without relief. 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 gluteus 2014, left psoas 2015 Status: Chronic (8) Irritable Bowel Syndrome Status: Chronic (9) Pacemaker Status: Chronic (10) Paroxysmal a-fib Status: Chronic (11) PMR (polymyalgia rheumatica) Status: Chronic (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 (13) Transient ischemic attack Status: Resolved Surgical Problems: (1) H/O nasal polypectomy Permanent Comment: 1970s Status: Chronic (2) S/P cholecystectomy Status: Chronic (3) 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 Status: Chronic Family History FATHER Alzheimer's disease MOTHER Asthma Heart disease SISTER Heart disease SON Asthma Social History Smoking Status: Never Smoker Alcohol Use: occasionally Drug Use: none Marital Status: Housing status: lives with family Occupational Status: retired Immunizations History of Influenza Vaccine: Yes History of Tetanus Vaccine?: Yes Tetanus Immunization Date: Jan 04, 2009 History of Pneumococcal: Yes History of Hepatitis B Vaccine: No Multi-Drug Resistant Organisms History of MDRO: No Allergies Coded Allergies: Aspirin (Verified Allergy, Severe, TIGHTNESS IN CHEST, 06/03/17) NSAIDs (Verified Allergy, Severe, TIGHTNESS IN THE CHEST, 06/03/17) Rofecoxib (Verified Allergy, Severe, TIGHTNESS IN CHEST, 06/03/17) Ibuprofen (Verified Allergy, Intermediate, Asthma Symptoms, 06/03/17) Home Medications Scheduled Aluminum Hydroxide-Mag Carb (Gaviscon), 5 ML PO TID Azelastine Hcl (Astelin Nasal Llewellyn), 2 SPRAYS NA BID Budesonide/Formoterol Fumarate (Symbicort 160/4.5 Inhaler), 2 PUFFS INH BID Calcium Carbonate-Vitamin D (Calcium 600 + D), 1 TAB PO BID Clopidogrel (Plavix), 75 MG PO DAILY Digoxin (Digox), 125 MCG PO DAILY Finasteride (Proscar), 5 MG PO DAILY Flunisolide (Nasal) (Flunisolide), 2 SPRY MARVIN BID Guaifenesin La (Guaifenesin Er), 600 MG PO Q12H Home O2 Therapy (Oxygen), 2 LITERS NA hs with cpap Loratadine (Claritin), 10 MG PO DAILY Misc Natural Products (Osteo Bi-Flex Advanced Tr), 1 TAB PO BID Montelukast Sodium (Singulair), 10 MG PO QPM Multivitamin (Multivitamin), 1 TAB PO DAILY Pantoprazole (Protonix), 20 MG PO BID Potassium Chloride (Micro-K Ext Rel), 10 MEQ PO DAILY Terazosin Hcl (Hytrin), 2 MG PO HS Verapamil Hcl (Verapamil Hcl Sr), 180 MG PO DAILY Scheduled PRN Bisacodyl (Dulcolax), 5 MG PO DAILY PRN for Constipation Ipratropium [place] (Atrovent 0.02% Soln), 2.5 ML NEB TID PRN for Wheezing Levalbuterol Hcl (Levalbuterol), 1 VIAL NEB Q6 PRN for cough/sob/wheezing Levalbuterol Tartrate (Levalbuterol Tartrate Hfa), 2 PUFFS INH Q8 PRN for Wheezing Polyethylene Glycol 3350 (Miralax), 17 GM PO DAILY PRN for Constipation Review of Systems Constitutional: No fever, No weight loss Eyes: No worsening of vision, No diplopia ENT: + hearing loss, No nasal symptoms, No sore throat Respiratory: + cough (occasional), + wheezing (chronic) Cardiovascular: + problem reported (as noted above in HPI) Abdomen: + problem reported (acid reflux), No pain, No nausea, No vomiting, No diarrhea, No GI bleeding Musculoskeletal: No joint pain Genitourinary - Male: No hematuria, No dysuria Neurologic: + problem reported (occasional headache) Endocrine: No excessive thirst, No excessive urination Hematologic / Lymphatic: No abnormal bleeding/bruising, No swollen lymph nodes Integumentary: No rash Physical Ex - H&P Physical Exam Vital Signs Date Time Temp Pulse Resp B/P (MAP) Pulse Ox O2 Delivery O2 Flow Rate FiO2 06/03/17 03:27 86 23 137/85 94 Nasal Cannula 2.0 06/03/17 02:19 36.4 86 19 141/76 94 Nasal Cannula 2.0 06/03/17 02:19 94 Nasal Cannula 2.0 06/03/17 02:19 94 Nasal Cannula 2.0 06/03/17 02:18 96 06/03/17 02:16 84 General Appearance: WD/WN, no apparent distress Head: normocephalic, atraumatic Eyes: normal inspection, PERRL, EOMI, sclerae normal (conjunctivae pink) ENT: normal ENT inspection, pharynx normal, + pertinent finding (hearing aide) Neck: supple, no adenopathy, thyroid normal, no JVD, trachea midline Respiratory/Chest: no respiratory distress, no accessory muscle use, + wheezing (diffuse mild) Cardiovascular: no edema, no gallop, no JVD, no murmur, + irregularly irregular , + abnormal peripheral pulses (diminished pedal pulses) Abdomen/GI: normal bowel sounds, non tender, soft, no organomegaly, no pulsatile mass Extremities/Musculoskelatal: normal inspection, no calf tenderness, normal capillary refill, no pedal edema Neurologic/Psych: light adjuster II-XII nml as tested (PERRL, EOMI, no facial palsy, no dysarthria), no motor/sensory deficits (motor strength extremities intact), alert, normal mood/affect, normal reflexes (patellar reflexes 2/2 bilat; plantar reflexes downgoing), oriented x 3 Skin: normal color, warm/dry, no rash Lymphatic: no adenopathy (cervical / axillary) Diagnostics - H&P Diagnostics Laboratory Results Results Past 24 Hours Test 06/03/17 02:45 06/03/17 02:54 Range/Units White Blood Count 6.94 4.8-10.8 K/uL Red Blood Count 4.64 4.7-6.1 M/uL Hemoglobin 14.5 14.0-18.0 g/dL Hematocrit 41.8 42-52 % Mean Corpuscular Volume 90.1 80-100 fL Mean Corpuscular Hemoglobin 31.3 25-34 pg Mean Corpuscular Hemoglobin Concent 34.7 32-36 g/dl Platelet Count 167 130-400 K/uL Mean Platelet Volume 9.7 7.4-10.4 fL Neutrophils (%) (Auto) 42.8 % Lymphocytes (%) (Auto) 43.8 % Monocytes (%) (Auto) 6.8 % Eosinophils (%) (Auto) 5.9 % Basophils (%) (Auto) 0.4 % Neutrophils # (Auto) 2.97 1.4-6.5 K/uL Lymphocytes # (Auto) 3.04 1.2-3.4 K/uL Monocytes # (Auto) 0.47 0.11-0.59 K/uL Eosinophils # (Auto) 0.41 0-0.5 K/uL Basophils # (Auto) 0.03 0-0.2 K/uL RDW Standard Deviation 45.8 36.4-46.3 fL RDW Coefficient of Variation 13.8 11.5-14.5 % Immature Granulocyte % (Auto) 0.3 % Immature Granulocyte # (Auto) 0.02 0.00-0.02 K/uL Sodium Level 144 136-145 mmol/L Potassium Level 3.5 3.5-5.1 mmol/L Chloride Level 110 98-107 mmol/L Carbon Dioxide Level 27 21-32 mmol/L Anion Gap 7.0 3-11 mmol/L Blood Urea Nitrogen 27 7-18 mg/dl Creatinine 1.20 0.60-1.40 mg/dl Est Creatinine Clear Calc Drug Dose 55.7 ml/min Estimated GFR () 63.1 Estimated GFR (Non- 54.4 BUN/Creatinine Ratio 22.6 10-20 Random Glucose 92 70-99 mg/dl Calcium Level 8.6 8.5-10.1 mg/dl Total Bilirubin 0.9 0.2-1 mg/dl Direct Bilirubin 0.2 0-0.2 mg/dl Aspartate Amino Transf (AST/SGOT) 22 15-37 U/L Alanine Aminotransferase (ALT/SGPT) 28 12-78 U/L Alkaline Phosphatase 65 45-117 U/L Total Creatine Kinase 111 39-308 U/L Creatine Kinase MB 3.9 0.5-3.6 ng/ml Creatine Kinase MB Ratio 3.5 0-3.0 Total Protein 6.5 6.4-8.2 gm/dl Albumin 3.4 3.4-5.0 gm/dl Bedside Troponin I < 0.030 0-0.045 ng/ml Diagnostic Radiology Chest x-ray reviewed by the undersigned (preliminary interpretation): cardiomegaly, pacemaker, chronic interstitial disease, no acute infiltrates, effusions, CHF . EKG EKG performed at 02:16 reviewed and demonstrated AF at 90 / minute, RBBB, repolarization abnormalities. . Impression - H&P Impression Assessment and Plan CHEST PAIN Left-sided chest pain at rest, somewhat pleuritic in nature. Troponin in ED negative. Check serial cardiac markers; D-dimer with next set. Hopefully pulmonary embolism will be ruled out due to history of spontaneous hemorrhages in past on anticoagulants. Intolerant or allergic to aspirin. Continue clopidogrel. No beta don due to asthma. Continue verapamil. Consult Cardiology Chronic AF Continue digoxin and verapamil. Not anticoagulated due to history of spontaneous hematomas. HISTORY OF TIA Continue clopidogrel. ASTHMA Symptomatically stable. Chest x-ray shows chronic interstitial disease, no apparent acute infiltrates. Continue usual meds. Consult Pulmonary Medicine if any pulmonary concerns. CKD III Serum creatine 1.2. Follow. GERD Continue pantoprazole. BPH Continue finasteride and terazosin. VTE PROPHYLAXIS Moderate risk for DVT. No anticoagulants due to history of spontaneous hematomas. SCD's. Ambulate. RESUSCITATION STATUS Discussed with patient. He has a living will. He would like resuscitation attempted in the event of a cardiopulmonary arrest if there is a reasonable chance of a meaningful recovery, but does not want prolonged extraordinary measures if prognosis is poor. Therefore, code status = "Level 1" (full resuscitation). DISPOSITION Observation status on Telemetry Unit. Expected discharge to home. Family Medicine follow-up with Dr. Dionte Banda. Cardiology follow-up with Dr. Souza. Pulmonary follow-up with Dr. Martinez. . VTE Prophylaxis Given or contraindicated: SCD's . Physical Exam (per Admitting): General Appearance: WD/WN, no apparent distress Head: normocephalic, atraumatic Eyes: normal inspection, PERRL, EOMI, sclerae normal (conjunctivae pink) ENT: normal ENT inspection, pharynx normal, + pertinent finding (hearing aide) Neck: supple, no adenopathy, thyroid normal, no JVD, trachea midline Respiratory/Chest: no respiratory distress, no accessory muscle use, + wheezing (diffuse mild) Cardiovascular: no edema, no gallop, no JVD, no murmur, + irregularly irregular, + abnormal peripheral pulses (diminished pedal pulses) Abdomen/GI: normal bowel sounds, non tender, soft, no organomegaly, no pulsatile mass Extremities/Musculoskelatal: normal inspection, no calf tenderness, normal capillary refill, no pedal edema Neurologic/Psych: light adjuster II-XII nml as tested (PERRL, EOMI, no facial palsy, no dysarthria), no motor/sensory deficits (motor strength extremities intact), alert, normal mood/affect, normal reflexes (patellar reflexes 2/2 bilat; plantar reflexes downgoing), oriented x 3 Skin: normal color, warm/dry, no rash Lymphatic: no adenopathy (cervical / axillary) Hospital Course CHEST PAIN-Non Cardiac Left-sided chest pain at rest, somewhat pleuritic in nature. Check serial cardiac markers-Negative for any ACS ; D-dimer >700 ,CTA was negative for any Pulmonary Embolism Intolerant or allergic to aspirin. Continue clopidogrel. No beta don due to asthma. Continue verapamil. Denies any pain today Appreciate Cardiology input ECHO:: * Left ventricular systolic function is normal. * Ejection Fraction = 55-60%. * The left ventricular wall motion is normal. * The right ventricle is normal size. * The right ventricular systolic function is qualitatively normal. Denies any more pain Early /Resolving Pneumonia Has had cough with productive sputum Started on Doxycycline Chronic AF Continue digoxin and verapamil. Not anticoagulated due to history of spontaneous hematomas. Rate is controlled No acute issue ASTHMA Symptomatically stable. Chest x-ray shows chronic interstitial disease, no apparent acute infiltrates. No acute symptoms Continue current medications Will consult Pulmonary if worsens Will need OP appointment with Pul soon-will arrange Started on Doxycycline HISTORY OF TIA Continue clopidogrel. No acute symptoms CKD III Serum creatine 1.2. Monitor Kidney function GERD Continue pantoprazole. BPH Continue finasteride and terazosin. VTE PROPHYLAXIS Moderate risk for DVT. No anticoagulants due to history of spontaneous hematomas. SCD's. Ambulate. RESUSCITATION STATUS Discussed with patient. He has a living will. He would like resuscitation attempted in the event of a cardiopulmonary arrest if there is a reasonable chance of a meaningful recovery, but does not want prolonged extraordinary measures if prognosis is poor. Therefore, code status = "Level 1" (full resuscitation). DISPOSITION Observation status on Telemetry Unit. Expected discharge to home. Family Medicine follow-up with Dr. Dionte Banda. Cardiology follow-up with Dr. Souza. Pulmonary follow-up with Dr. Martinez. PT/OT evaluation Discharge today Total time spent on discharge =35 minutes This includes examination of the patient, discharge planning, medication reconciliation, and communication with other providers. Discharge Instructions Date of Service Jun 05, 2017. Admission Reason for Admission: Chest Pain Discharge Discharge Diagnosis / Problem: Chest pain-NO ACS and no Pul Embolism, Pleurisy.Bronchitis Discharge Goals Goal(s): Prevent Disease Progression Activity Recommendations Activity Limitations: resume your previous activity . Instructions / Follow-Up Instructions / Follow-Up Dr Banda on 06/10/17 at 1:45 PM Current Hospital Diet Patient's current hospital diet: AHA Diet (Heart Healthy) Discharge Diet Recommended Diet: AHA Diet (Heart Healthy) Pending Studies Studies pending at discharge: no Laboratory Results Lipid Panel Test 06/03/17 07:48 Range/Units Triglycerides Level 68 0-150 mg/dl Cholesterol Level 133 0-200 mg/dl HDL Cholesterol 46 mg/dl Cholesterol/HDL Ratio 2.9 LDL Cholesterol, Calculated 73 mg/dl Medical Emergencies . Who to Call and When: Medical Emergencies: If at any time you feel your situation is an emergency, please call 911 immediately. . Non-Emergent Contact Non-Emergency issues call your: Primary Care Provider . 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 "Provider Documentation" section prepared by Flaca Gupta. . VTE Core Measure Inpt VTE Proph given/why not?: SCD's <Electronically signed by Flaca Gupta M.D.> Additional Copies To Dionte Banda D.O.
--- NOTE | 2017-06-05 11:58 | CARDIOLOGY PROGRESS NOTE ---
DATE: 06/05/2017 The patient was seen and examined. Chart, medications, and telemetry were reviewed. SUBJECTIVE: The patient feels improved this morning after having begun on antibiotic therapies last night with moderate amount of sputum production. Wheezing and cough have improved. Notes no chest pains or discomfort. OBJECTIVE: VITAL SIGNS: Heart rate 71, blood pressure is 112/68, and O2 saturations 93% on 2 liters nasal cannula. NECK: Thin. There is no jugular venous distention. LUNGS: Reveal coarse wheezes on forced cough. CARDIOVASCULAR: Irregularly irregular. There is no S3 gallop. ABDOMEN: Soft and nontender. EXTREMITIES: Without cyanosis or clubbing. There is trace to 1+ ankle edema. LABORATORY STUDIES: Sodium is 141, potassium is 3.9, chloride is 108, bicarbonate 23, BUN is 23, and creatinine is 1.3. IMPRESSION: This is an 86-year-old male admitted with atypical chest pain, not consistent with ischemic heart disease. Serial enzymes and EKGs have not reflected ischemia. Symptoms appear to be exacerbated by recent and ongoing respiratory issues, now improved with antibiotic therapy. No adjustments made in medical regimen.
[2017-06-05] MEDS ORDERED: DOXYCYCLINE IV 100 MG in DEXTROSE 5% 100ML 100 ML IV SCH (14:00)
== END 2017-06-05 14:47 | disposition home or self-care (01) ==
LOC: EDBD 02:10 → C.EDB 02:12 → C.MED 04:03 → ENRESERV 04:19
PROVIDERS: ADMIT Hospitalist; ATTEND Internal Medicine
DX: R07.9 Chest pain, unspecified (principal); J45.909 Unspecified asthma, uncomplicated; I48.0 Paroxysmal atrial fibrillation; N40.0 Benign prostatic hyperplasia without lower urinary tract symptoms; N18.3 Chronic kidney disease, stage 3 (moderate); K21.9 Gastro-esophageal reflux disease without esophagitis; Z95.0 Presence of cardiac pacemaker; Z98.890 Other specified postprocedural states; Z86.73 Personal history of transient ischemic attack (TIA), and cerebral infarction without residual deficits; Z85.828 Personal history of other malignant neoplasm of skin; Z79.02 Long term (current) use of antithrombotics/antiplatelets; Z90.49 Acquired absence of other specified parts of digestive tract; Z82.5 Family history of asthma and other chronic lower respiratory diseases; Z81.8 Family history of other mental and behavioral disorders; Z82.49 Family history of ischemic heart disease and other diseases of the circulatory system

== ENCOUNTER 2017-07-16 11:58 | Inpatient (IN) | payer OTHER, BC ==
[~2017-07-16] VITALS: Ht 195.6 cm; Wt 90.4 kg
[~2017-07-16 11:58] MED LIST changes: -ACET-1256 PO; +ASTN; +BENZ100C7 PO; +BISA-16 PO; +DXY100 PO; +FLUN0.02 NAE; +GUAI1TAB75 PO; +LCTX PO; +OXGN; -PRED10TA PO; +PRT/20 PO; -PRT/40 PO
[2017-07-16] MEDS ORDERED: CEFTRIAXONE SOD INJ 1 GM ADDVIAL IV STA (12:17)
[2017-07-16] MEDS ORDERED: ALBUT/IPRATROP 3MG/0.5MG NEB 3 ML VIAL INH STA (12:17)
[2017-07-16] MEDS ORDERED: AZITHROMYCIN IV 500 MG in DEXTROSE 5% 250ML 250 ML IV ONE (12:30)
[2017-07-16 12:47] LABS: BASO % 0.5 %; BASO ABS # 0.04 K/uL (0-0.2); COMPLETE YES; EOS % 6.2 %; HEMATOCRIT 39.9 % (42-52); IG% 0.4 %; LYMPH % 31.3 %; LYMPH ABS # 2.57 K/uL (1.2-3.4); MEAN CELL VOLUME 91.1 fL (80-100); MEAN CORPUSCULAR HEMOGLOBIN 30.6 pg (25-34); MEAN CORPUSCULAR HGB CONC 33.6 g/dl (32-36); MEAN PLATELET VOLUME 9.4 fL (7.4-10.4); NEUT % 51.6 %; PLATELET COUNT 219 K/uL (130-400); RED BLOOD COUNT 4.38 M/uL (4.7-6.1); WHITE BLOOD COUNT 8.22 K/uL (4.8-10.8)
[2017-07-16 12:55] LABS: INR 1.1 (0.9-1.1); PARTIAL THROMBOPLASTIN RATIO 1.3; PROTHROMBIN TIME (PATIENT) 11.8 SECONDS (9.0-12.0)
[2017-07-16 12:57] LABS: BLOOD UREA NITROGEN 17 mg/dl (7-18); BUN/CREATININE RATIO 12.6 (10-20); CALCIUM 8.9 mg/dl (8.5-10.1); CARBON DIOXIDE 23 mmol/L (21-32); CHLORIDE 106 mmol/L (98-107); CREATININE 1.35 mg/dl (0.60-1.40); GLUCOSE 75 mg/dl (70-99); SODIUM 138 mmol/L (136-145)
[2017-07-16 13:01] LABS: ALB/GLOB RATIO 0.9 (0.9-2); ALKALINE PHOSPHATASE 84 U/L (45-117); ALT/SGPT 27 U/L (12-78); AST/SGOT 27 U/L (15-37); CKMB/CK RATIO 3.7 (0-3.0)
--- NOTE | 2017-07-16 13:02 | DIAGNOSTIC IMAGING REPORT ---
CHEST ONE VIEW PORTABLE CLINICAL HISTORY: sob dyspnea COMPARISON STUDY: 07/11/2017 FINDINGS: Mild stable cardiomegaly. Permanent bipolar cardiac pacemaker. Chronic pulmonary vascular congestion. Chronic parenchymal fibrosis. IMPRESSION: Moderate stable cardiomegaly. Chronic baseline interstitial change with a superimposed component of interstitial congestive failure The above report was generated using voice recognition software. It may contain grammatical, syntax or spelling errors. Electronically signed by: Phi Head M.D. 07/16/2017 1:00 PM Dictated Date/Time: 07/16/2017 12:59 PM
[2017-07-16 14:16] LABS: INFLUENZA A PCR Neg for Influ A (NEG); INFLUENZA B PCR Neg for Influ B (NEG)
--- NOTE | 2017-07-16 14:48 | EMERGENCY ROOM VISIT NOTE ---
History Report prepared by Evansibjosy: Wade Huber Under the Supervision of: Dr. Stiven Singleton D.O. First contact with patient: 12:10 Chief Complaint: SHORTNESS OF BREATH Stated Complaint: Shortness of Breath History of Present Illness The patient is a 86 year old male who presents to the Emergency Room by EMS with complaints of worsening shortness of breath beginning three hours ago. He wears 2 L of supplemental oxygen by nasal canula at home. He is currently on Levaquin, and took his last dose this morning. The patient has a history of asthma. He also complains of a cough and chest "tightness". His cough was initially producing a clear sputum, but has now become dry. The patient denies sore throat or runny nose. Source of History: patient Onset: Three hours ago Quality: other (shortness of breath) Timing: worsening Associated Symptoms: + cough (dry), + chest pain ("tightness"), No sorethroat Note: The patient denies runny nose. Review of Systems See HPI for pertinent positives & negatives. A total of 10 systems reviewed and were otherwise negative. 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 (17) Transient ischemic attack Surgical Problems: (1) H/O nasal polypectomy (2) S/P cholecystectomy (3) Status post surgical removal of malignant neoplasm of skin Family History Alzheimer's disease FATHER Asthma MOTHER SON Heart disease MOTHER SISTER Social History Smoking Status: Never Smoker Alcohol Use: none Drug Use: none Marital Status: Housing Status: lives with family Occupation Status: retired Current/Historical Medications Scheduled Azelastine Hcl (Astelin Nasal [place]), 2 SPRAYS NA BID Calcium Carbonate-Vitamin D (Calcium 600 + D), 1 TAB PO BID Clopidogrel (Plavix), 75 MG PO DAILY Digoxin (Digox), 125 MCG PO DAILY Finasteride (Proscar), 5 MG PO DAILY Flunisolide (Nasal) (Flunisolide), 2 SPRY MARVIN BID Home O2 Therapy (Oxygen), 2 LITERS NA hs with cpap Loratadine (Claritin), 10 MG PO DAILY Misc Natural Products (Osteo Bi-Flex Advanced Tr), 1 TAB PO BID Montelukast Sodium (Singulair), 10 MG PO QPM Multivitamin (Multivitamin), 1 TAB PO DAILY Pantoprazole (Protonix), 20 MG PO BID Terazosin Hcl (Hytrin), 2 MG PO HS Verapamil Hcl (Verapamil Hcl Sr), 180 MG PO DAILY Scheduled PRN Ipratropium [place] (Atrovent 0.02% Soln), 2.5 ML NEB TID PRN for Wheezing Levalbuterol Hcl (Levalbuterol), 1 VIAL NEB Q6 PRN for cough/sob/wheezing Levalbuterol Tartrate (Levalbuterol Tartrate Hfa), 2 PUFFS INH Q8 PRN for Wheezing Allergies Coded Allergies: Aspirin (Verified Allergy, Severe, TIGHTNESS IN CHEST, 07/16/17) NSAIDs (Verified Allergy, Severe, TIGHTNESS IN THE CHEST, 07/16/17) Rofecoxib (Verified Allergy, Severe, TIGHTNESS IN CHEST, 07/16/17) Ibuprofen (Verified Allergy, Intermediate, Asthma Symptoms, 07/16/17) Physical Exam Vital Signs Date Time Temp Pulse Resp B/P (MAP) Pulse Ox O2 Delivery O2 Flow Rate FiO2 07/16/17 14:26 72 19 112/76 94 Nasal Cannula 6.0 07/16/17 13:15 71 25 99/61 92 Nasal Cannula 6.0 07/16/17 12:38 94 Nasal Cannula 6.0 07/16/17 12:12 79 07/16/17 12:09 36.7 81 24 103/56 86 Nasal Cannula 2.0 07/16/17 12:09 86 Nasal Cannula 5.0 Physical Exam CONSTITUTIONAL/VITAL SIGNS: Reviewed / noted above. GENERAL: Non-toxic in appearance. INTEGUMENTARY: Warm, dry, and [place]. HEAD: Normocephalic. EYES: without scleral icterus or trauma. ENT/OROPHARYNX: clear and moist. LYMPHADENOPATHY/NECK: Is supple without lymphadenopathy or meningismus. RESPIRATORY: Bibasilar crackles with scattered wheezes to auscultation. CARDIOVASCULAR: Regular rate and rhythm. GI/ABDOMEN: Soft and nontender. No organomegaly or pulsatile mass. No rebound or guarding. Normal bowel sounds. EXTREMITIES: Warm and well perfused. Mild swelling of the RLE compared to the left. BACK: No CVA tenderness. NEUROLOGICAL: Intact without focal deficits. PSYCHIATRIC: normal affect. MUSCULOSKELETAL: Normally developed with good muscle tone. Medical Decision & Procedures ER Provider Diagnostic Interpretation: X ray results and stated below per my interpretation and radiology interpretation. CHEST ONE VIEW PORTABLE FINDINGS: Mild stable cardiomegaly. Permanent bipolar cardiac pacemaker. Chronic pulmonary vascular congestion. Chronic parenchymal fibrosis. IMPRESSION: Moderate stable cardiomegaly. Chronic baseline interstitial change with a superimposed component of interstitial congestive failure The above report was generated using voice recognition software. It may contain grammatical, syntax or spelling errors. Electronically signed by: Phi Head M.D. 07/16/2017 1:00 PM Laboratory Results 07/16/17 12:15 Red Blood Count 4.38, Mean Corpuscular Volume 91.1, Mean Corpuscular Hemoglobin 30.6, Mean Corpuscular Hemoglobin Concent 33.6, Mean Platelet Volume 9.4, Neutrophils (%) (Auto) 51.6, Lymphocytes (%) (Auto) 31.3, Monocytes (%) (Auto) 10.0, Eosinophils (%) (Auto) 6.2, Basophils (%) (Auto) 0.5, Neutrophils # (Auto ) 4.25, Lymphocytes # (Auto) 2.57, Monocytes # (Auto) 0.82, Eosinophils # (Auto ) 0.51, Basophils # (Auto) 0.04 07/16/17 12:15 Test 07/16/17 12:15 07/16/17 12:25 07/16/17 12:50 White Blood Count 8.22 K/uL (4.8-10.8) Red Blood Count 4.38 M/uL (4.7-6.1) Hemoglobin 13.4 g/dL (14.0-18.0) Hematocrit 39.9 % (42-52) Mean Corpuscular Volume 91.1 fL (80-100) Mean Corpuscular Hemoglobin 30.6 pg (25-34) Mean Corpuscular Hemoglobin Concent 33.6 g/dl (32-36) Platelet Count 219 K/uL (130-400) Mean Platelet Volume 9.4 fL (7.4-10.4) Neutrophils (%) (Auto) 51.6 % Lymphocytes (%) (Auto) 31.3 % Monocytes (%) (Auto) 10.0 % Eosinophils (%) (Auto) 6.2 % Basophils (%) (Auto) 0.5 % Neutrophils # (Auto) 4.25 K/uL (1.4-6.5) Lymphocytes # (Auto) 2.57 K/uL (1.2-3.4) Monocytes # (Auto) 0.82 K/uL (0.11-0.59) Eosinophils # (Auto) 0.51 K/uL (0-0.5) Basophils # (Auto) 0.04 K/uL (0-0.2) RDW Standard Deviation 46.4 fL (36.4-46.3) RDW Coefficient of Variation 13.9 % (11.5-14.5) Immature Granulocyte % (Auto) 0.4 % Immature Granulocyte # (Auto) 0.03 K/uL (0.00-0.02) Prothrombin Time 11.8 SECONDS (9.0-12.0) Prothromb Time International Ratio 1.1 (0.9-1.1) Activated Partial Thromboplast Time 34.5 SECONDS (21.0-31.0) Partial Thromboplastin Ratio 1.3 Anion Gap 9.0 mmol/L (3-11) Est Creatinine Clear Calc Drug Dose 49.5 ml/min Estimated GFR () 54.7 Estimated GFR (Non- 47.2 BUN/Creatinine Ratio 12.6 (10-20) Calcium Level 8.9 mg/dl (8.5-10.1) Total Bilirubin 0.9 mg/dl (0.2-1) Aspartate Amino Transf (AST/SGOT) 27 U/L (15-37) Alanine Aminotransferase (ALT/SGPT) 27 U/L (12-78) Alkaline Phosphatase 84 U/L (45-117) Total Creatine Kinase 255 U/L (39-308) Creatine Kinase MB 9.5 ng/ml (0.5-3.6) Creatine Kinase MB Ratio 3.7 (0-3.0) Troponin I < 0.015 ng/ml (0-0.045) Total Protein 6.9 gm/dl (6.4-8.2) Albumin 3.3 gm/dl (3.4-5.0) Globulin 3.6 gm/dl (2.5-4.0) Albumin/Globulin Ratio 0.9 (0.9-2) Bedside Lactic Acid Venous 1.77 mmol/L (0.90-1.70) Influenza Type A (RT-PCR) Neg for Influ A (NEG) Influenza Type B (RT-PCR) Neg for Influ B (NEG) Laboratory results as stated above per my review. Medications Administered Medications (Trade) Dose Ordered Sig/Akash Route Start Time Stop Time Status Last Admin Dose Admin Albuterol/ Ipratropium (Duoneb) 3 ml NOW STAT INH 07/16/17 12:17 07/16/17 12:25 DC 07/16/17 12:54 3 ML Ceftriaxone Sodium (Rocephin Inj) 1 gm NOW STAT IV 07/16/17 12:17 07/16/17 12:25 DC 07/16/17 12:59 1 GM Azithromycin 500 mg/Dextrose 255 ml @ 125 mls/hr ONE ONCE IV 07/16/17 12:30 07/16/17 14:32 DC 07/16/17 13:12 125 MLS/HR ECG Indication: SOB/dyspnea Rate (beats per minute): 71 Rhythm: atrial fibrillation Findings: no acute ischemic change, no ectopy ED Course 1212: Previous medical records were reviewed. The patient was evaluated in room C4. A complete history and physical examination was performed. 1217: Ordered Rocephin Inj 1 gm IV, DuoNeb 3 mL INH. 1230: Ordered Azithromycin 500 mg/Dextrose 255 mL @ 125 mL/hr IV. 1350: On reevaluation, the patient is resting comfortably. I discussed the results and findings with him. He verbalized agreement of the treatment plan. I spoke with Niki ANTHONY of the [facility]. The patient will be evaluated for further management and care. Medical Decision Differential diagnosis: Etiologies such as infections, reactive airway disease, pneumonia, pneumothorax , COPD, CHF, cardiac ischemia, pulmonary embolism, musculoskeletal, gastrointestinal, as well as others were entertained. This is an 86-year-old male who presents to the ED with a chief complaint of worsening shortness of breath and cough. The patient has been on Levaquin for the past 5 days. He was placed on this on Friday for upper respiratory infection cough. The patient was brought here by EMS. They provided a DuoNeb treatment and IV Solu-Medrol. His oxygen saturations on 2 L of normal saline is 86%. He is on this at home. He required 6 L to obtain 91-92%. The patient reports increasing shortness of breath today. He has had a cough with occasional lee sputum production. He denies any nausea or vomiting. His EKG shows chronic atrial fibrillation. CBC and complete metabolic panel were unremarkable. Chest x-ray was concerning for CHF but clinically this is not evident and the patient does not have a history thereof. The patient was treated with IV antibiotics, Rocephin and Zithromax. He was given DuoNeb treatment and will be seen by the hospitalist for further inpatient evaluation and care. Medication Reconcilliation Current Medication List: was personally reviewed by me Blood Pressure Screening Patient's blood pressure: Normal blood pressure Blood pressure disposition: Did not require urgent referral Consults Time Called: 1348 Consulting Physician: Niki Morgan Returned Call: [phone] Discussed the patient's case. The patient will be evaluated for further treatment and disposition. Impression Primary Impression: Hypoxia Additional Impression: Pneumonia Scribe Attestation The scribe's documentation has been prepared under my direction and personally reviewed by me in its entirety. I confirm that the note above accurately reflects all work, treatment, procedures, and medical decision making performed by me. Departure Information Dispostion Being Evaluated By Hospitalist Referrals Dionte Banda D.OLincoln (PCP) Patient Instructions My [facility] Problem Qualifiers
[2017-07-16] MEDS ORDERED: ONDANSETRON INJ 2 MG/ML 2 ML VIAL IV PRN (15:15)
[2017-07-16 15:33] VITALS: BP 113/62; TEMP 36.7; BMI 24.9
[2017-07-16 15:34] VITALS: Ht 195.6 cm; Wt 90.4 kg
[2017-07-16] MEDS ORDERED: VERA240T20 PO (15:36)
[2017-07-16] MEDS ORDERED: LEVOFLOXACIN / D5W 750 MG in PREMIXED IN D5W 150 ML IV SCH (16:00)
[2017-07-16] MEDS ORDERED: POTA1CAP2 PO (16:38)
[2017-07-16] MEDS ORDERED: GUAI1TAB75 PO (16:38)
[2017-07-16] MEDS ORDERED: SYMIN/8045 INH (16:38)
[2017-07-16 16:41] VITALS: BP 117/70; PULSE 101; TEMP 36.7; O2SAT 91
[2017-07-16] MEDS: METHYLPREDNISOLONE IV 40 MG in SYRINGE 0 ML IV SCH (17:14)
[2017-07-16] MEDS: GUAIFENESIN 600 MG TABCR PO SCH (17:48)
[2017-07-16] MEDS: IPRATROPIUM BROMIDE NEB SOLN 0.02% 2.5 ML VIAL INH SCH (19:46)
[2017-07-16] MEDS: LEVALBUTEROL 1.25MG/0.5ML NEB INH SCH (19:46)
[2017-07-16 19:48] VITALS: PULSE 89; O2SAT 92
--- NOTE | 2017-07-16 19:56 | History and Physical ---
History & Physical Date & Time of Service: Jul 16, 2017 ~ 14:45 Chief Complaint: Hypoxia Primary Care Physician: Dr. Dionte Banda History of Present Illness 86 year old male who presents to the ED with shortness of breath. Patient reports his symptoms began about a week ago. He was seen by his underwriting technician on 07/11 and was started on Levaquin for 5 days. He took his last dose this AM. He reports he initially was feeling better but symptoms returned a couple of days. He reports his chest has felt tight and shortness of breath has been worsening. He has history of asthma. He has been using his nebulizers 4 times a day at home which has not improved his symptoms. He wears oxygen 2L at night and while he is using his nebulizers. His cough is moist and non productive. He reports rhinorrhea and post nasal drip. He denies fever and chills. No chest pain, lightheadedness, dizziness, diaphoresis, or syncopal events. He denies abdominal pain, nausea, vomiting, or diarrhea. No urinary symptoms. In the ED, patient was found to be hypoxic on 2L. He is currently requiring 6L. CXR does not show an infiltrate. Labs are unremarkable. EMS administered IV steroids and a neb. In the ED, he received a neb and IV azithromycin and Rocephin. Past Medical/Surgical History Medical Problems: (1) Arthritis Status: Chronic (2) Asthma, moderate persistent Status: Chronic (3) Benign prostatic hyperplasia Status: Chronic (4) BPH (benign prostatic hypertrophy) Status: Chronic (5) CKD (chronic kidney disease) stage 3, GFR 30-59 ml/min Status: Chronic (6) GERD (gastroesophageal reflux disease) Status: Chronic (7) Heart block Permanent Comment: s/p pacemaker placement Status: Chronic (8) History spontaneous hematomas Permanent Comment: 2 spontaneous hematomas while taking clopidogrel + warfarin: left gluteus 2015, left psoas 2016 Status: Chronic (9) History spontanous hemorrhage Permanent Comment: 2 spontaneous hematomas while taking clopidogrel + warfarin: left gluteus 2015, left psoas 2016 Status: Chronic (10) Irritable Bowel Syndrome Status: Chronic (11) Pacemaker Status: Chronic (12) Paroxysmal a-fib Status: Chronic (13) PMR (polymyalgia rheumatica) Status: Chronic (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 (15) Transient ischemic attack Status: Resolved Surgical Problems: (1) H/O nasal polypectomy Permanent Comment: 1970s Status: Chronic (2) S/P cholecystectomy Status: Chronic (3) 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 Status: Chronic Family History non contributory due to patient's advanced age Social History Smoking Status: Never Smoker Alcohol Use: none Marital Status: Housing status: lives with family Immunizations History of Influenza Vaccine: Yes Influenza Vaccine Date: Jul 01, 2017 History of Tetanus Vaccine?: Yes Tetanus Immunization Date: Jan 04, 2009 History of Pneumococcal: Yes Pneumococcal Date: Apr 07, 2015 Multi-Drug Resistant Organisms History of MDRO: No Allergies Coded Allergies: Aspirin (Verified Allergy, Severe, TIGHTNESS IN CHEST, 07/16/17) NSAIDs (Verified Allergy, Severe, TIGHTNESS IN THE CHEST, 07/16/17) Rofecoxib (Verified Allergy, Severe, TIGHTNESS IN CHEST, 07/16/17) Ibuprofen (Verified Allergy, Intermediate, Asthma Symptoms, 07/16/17) Home Medications Scheduled Azelastine Hcl (Astelin Nasal [place]), 2 SPRAYS NA BID Budesonide/Formoterol Fumarate (Symbicort 80/4.5 Inhaler), 2 PUFFS INH BID Calcium Carbonate-Vitamin D (Calcium 600 + D), 1 TAB PO BID Clopidogrel (Plavix), 75 MG PO DAILY Digoxin (Digox), 125 MCG PO DAILY Finasteride (Proscar), 5 MG PO DAILY Flunisolide (Nasal) (Flunisolide), 2 SPRY MARVIN BID Guaifenesin [place] (Guaifenesin Er), 600 MG PO Q12H Home O2 Therapy (Oxygen), 2 LITERS NA hs with cpap Loratadine (Claritin), 10 MG PO DAILY Misc Natural Products (Osteo Bi-Flex Advanced Tr), 1 TAB PO BID Montelukast Sodium (Singulair), 10 MG PO QPM Multivitamin (Multivitamin), 1 TAB PO DAILY Pantoprazole (Protonix), 20 MG PO BID Potassium Chloride (Potassium Chloride Er), 1 CAP PO DAILY Terazosin Hcl (Hytrin), 2 MG PO HS Verapamil Sust Rel (Calan Sr Ext Rel), 240 MG PO DAILY Scheduled PRN Ipratropium [place] (Atrovent 0.02% Soln), 2.5 ML NEB QID PRN for Wheezing Levalbuterol Hcl (Levalbuterol), 1 VIAL NEB QID PRN for cough/sob/wheezing Review of Systems ROS per HPI, all other systems reviewed and negative Physical Exam Vital Signs Date Time Temp Pulse Resp B/P (MAP) Pulse Ox O2 Delivery O2 Flow Rate FiO2 07/16/17 16:41 36.7 101 18 117/70 (86) 91 Nasal Cannula 2.0 07/16/17 15:34 Nasal Cannula 2.0 07/16/17 15:33 36.7 22 113/62 07/16/17 15:03 62 22 113/62 87 07/16/17 14:26 72 19 112/76 94 Nasal Cannula 6.0 07/16/17 13:15 71 25 99/61 92 Nasal Cannula 6.0 07/16/17 12:38 94 Nasal Cannula 6.0 07/16/17 12:12 79 07/16/17 12:09 36.7 81 24 103/56 86 Nasal Cannula 2.0 07/16/17 12:09 86 Nasal Cannula 5.0 General Appearance: WD/WN, no apparent distress, + pertinent finding (ill appearing) Head: normocephalic, atraumatic Eyes: normal inspection, EOMI, sclerae normal ENT: hearing grossly normal, + pertinent finding (mucous membranes moist) Neck: supple, no JVD, trachea midline Respiratory/Chest: no respiratory distress, + rhonchi (scattered throughout all lung mcknight), + wheezing (expiratory throughout all lung mcknight) Cardiovascular: regular rate, rhythm, normal peripheral pulses, + pertinent finding (trace edema BLLE) Abdomen/GI: normal bowel sounds, non tender, soft, no organomegaly Extremities/Musculoskelatal: normal inspection, no calf tenderness, normal capillary refill Neurologic/Psych: no motor/sensory deficits, alert, normal mood/affect, oriented x 3 Skin: normal color, warm/dry Diagnostics Laboratory Results Results Past 24 Hours Test 07/16/17 12:15 07/16/17 12:25 07/16/17 12:50 Range/Units White Blood Count 8.22 4.8-10.8 K/uL Red Blood Count 4.38 4.7-6.1 M/uL Hemoglobin 13.4 14.0-18.0 g/dL Hematocrit 39.9 42-52 % Mean Corpuscular Volume 91.1 80-100 fL Mean Corpuscular Hemoglobin 30.6 25-34 pg Mean Corpuscular Hemoglobin Concent 33.6 32-36 g/dl Platelet Count 219 130-400 K/uL Mean Platelet Volume 9.4 7.4-10.4 fL Neutrophils (%) (Auto) 51.6 % Lymphocytes (%) (Auto) 31.3 % Monocytes (%) (Auto) 10.0 % Eosinophils (%) (Auto) 6.2 % Basophils (%) (Auto) 0.5 % Neutrophils # (Auto) 4.25 1.4-6.5 K/uL Lymphocytes # (Auto) 2.57 1.2-3.4 K/uL Monocytes # (Auto) 0.82 0.11-0.59 K/uL Eosinophils # (Auto) 0.51 0-0.5 K/uL Basophils # (Auto) 0.04 0-0.2 K/uL RDW Standard Deviation 46.4 36.4-46.3 fL RDW Coefficient of Variation 13.9 11.5-14.5 % Immature Granulocyte % (Auto) 0.4 % Immature Granulocyte # (Auto) 0.03 0.00-0.02 K/uL Prothrombin Time 11.8 9.0-12.0 SECONDS Prothromb Time International Ratio 1.1 0.9-1.1 Activated Partial Thromboplast Time 34.5 21.0-31.0 SECONDS Partial Thromboplastin Ratio 1.3 Sodium Level 138 136-145 mmol/L Potassium Level 4.0 3.5-5.1 mmol/L Chloride Level 106 98-107 mmol/L Carbon Dioxide Level 23 21-32 mmol/L Anion Gap 9.0 3-11 mmol/L Blood Urea Nitrogen 17 7-18 mg/dl Creatinine 1.35 0.60-1.40 mg/dl Est Creatinine Clear Calc Drug Dose 49.5 ml/min Estimated GFR () 54.7 Estimated GFR (Non- 47.2 BUN/Creatinine Ratio 12.6 10-20 Random Glucose 75 70-99 mg/dl Calcium Level 8.9 8.5-10.1 mg/dl Total Bilirubin 0.9 0.2-1 mg/dl Aspartate Amino Transf (AST/SGOT) 27 15-37 U/L Alanine Aminotransferase (ALT/SGPT) 27 12-78 U/L Alkaline Phosphatase 84 45-117 U/L Total Creatine Kinase 255 39-308 U/L Creatine Kinase MB 9.5 0.5-3.6 ng/ml Creatine Kinase MB Ratio 3.7 0-3.0 Troponin I < 0.015 0-0.045 ng/ml Total Protein 6.9 6.4-8.2 gm/dl Albumin 3.3 3.4-5.0 gm/dl Globulin 3.6 2.5-4.0 gm/dl Albumin/Globulin Ratio 0.9 0.9-2 Bedside Lactic Acid Venous 1.77 0.90-1.70 mmol/L Influenza Type A (RT-PCR) Neg for Influ A NEG Influenza Type B (RT-PCR) Neg for Influ B NEG Microbiology Results 07/16/17 Blood Culture, Received Pending 07/16/17 Blood Culture, Received Pending Diagnostic Radiology CXR IMPRESSION: Moderate stable cardiomegaly. 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 URI VS. SINUSITIS - admit to tele - patient presenting with increasing shortness of breath x 1 week, was placed on Levaquin as an outpatient on 07/11; in the ED, patient was found to be hypoxic in the 80s on 2L, currently requiring 6L via NC - no infiltrate on CXR - was placed on Levaquin due to history of growing Stenotrophomonas - case was discussed with Paige Singh PA-C with pulmonary - will continue Levaquin since patient had initially improved on the Levaquin - noted that patient is typically on azithromycin suppression therapy 3x week however currently being held while on Levaquin - IV steroids, around the clock nebs (Xopenex used due to history of a. fib); continue Symbicort - flutter valve to help mobilize secretions - pulmonary consult, input appreciated ATRIAL FIBRILLATION, HX TACHYBRADY S/P PACEMAKER - rate controlled on Verapamil and digoxin - not anticoagulated due to bleeding complications and hematomas in the past HX TIA - continue Plavix CKD STAGE III - baseline creat runs in the low 1's - creat noted to be 1.3 today - continue to monitor, avoid nephrotoxic agents when able BPH - continue finasteride DVT PROPHYLAXIS - SQ Lovenox CODE STATUS - Patient is a full code as per my discussion with him. DISPO - In my clinical judgment this beneficiary meets acute admission criteria, established by [facility], that includes being hospitalized through two midnights. ADDENDUM: Saw/examined the patient in room 242 he was feeling better after abx and steroids given states that he had this shortness of breath and cough for a few weeks was seen by pulmonology - changed from azithro to Levaquin was feeling better, but then today it suddenly became worse again was given some IV steroids and IV Levaquin in the ED and felt better Plan is to continue abx.; steroid taper; pulm consult Advanced Directives Existing Living Will: Yes Existing Power of Brass Polisher: Yes VTE Prophylaxis VTE Risk Assessment Done? Y/N: Yes Risk Level: Moderate
[2017-07-16 20:28] VITALS: BP 135/87; PULSE 86; TEMP 36.7; O2SAT 90
[2017-07-16] MEDS: BUDESONIDE/FORMOTEROL FUMARATE 80/4.5 60 PUFFS/INHALER INH SCH (21:03)
[2017-07-16] MEDS: CALCIUM 600MG + VIT D 400 IU TAB PO SCH (21:04)
[2017-07-16] MEDS: PANTOprazole SOD 40 MG TAB PO SCH (21:04)
[2017-07-16] MEDS: MONTELUKAST SOD 10 MG TAB PO SCH (21:05)
[2017-07-16] MEDS: ENOXAPARIN 40 MG/0.4 ML SYR SC SCH (21:09)
[2017-07-16 23:59] VITALS: O2SAT 88
[2017-07-17] VITALS (12 sets, daily range): BP systolic 104–140; BP diastolic 54–71; PULSE 66–118; TEMP 36.4–36.8; O2SAT 85–93
[2017-07-17] MEDS: METHYLPREDNISOLONE IV 40 MG in SYRINGE 0 ML IV SCH ×3 (01:35→17:23)
[2017-07-17] MEDS: ACETAMINOPHEN 325 MG TAB PO PRN (01:38)
[2017-07-17] MEDS: IPRATROPIUM BROMIDE NEB SOLN 0.02% 2.5 ML VIAL INH SCH ×4 (01:46→19:35)
[2017-07-17] MEDS: LEVALBUTEROL 1.25MG/0.5ML NEB INH SCH ×4 (01:46→19:35)
[2017-07-17 07:25] LABS: MEAN CELL VOLUME 90.3 fL (80-100); MEAN CORPUSCULAR HGB CONC 34.4 g/dl (32-36); MEAN PLATELET VOLUME 9.7 fL (7.4-10.4); PLATELET COUNT 209 K/uL (130-400); RED BLOOD COUNT 4.32 M/uL (4.7-6.1)
[2017-07-17] MEDS: CALCIUM 600MG + VIT D 400 IU TAB PO SCH ×2 (07:43→19:11)
[2017-07-17] MEDS: MULTIVITAMIN TAB PO SCH (07:44)
[2017-07-17] MEDS: CLOPIDOGREL BISULFATE 75 MG TAB PO SCH (07:44)
[2017-07-17] MEDS: PANTOprazole SOD 40 MG TAB PO SCH ×2 (07:44→19:11)
[2017-07-17] MEDS: BUDESONIDE/FORMOTEROL FUMARATE 80/4.5 60 PUFFS/INHALER INH SCH ×2 (07:45→19:08)
[2017-07-17] MEDS: POTASSIUM CHLORIDE 10 MEQ TABCR PO SCH (07:48)
[2017-07-17] MEDS: VERAPAMIL HCL 240 MG TABCR PO SCH (07:48)
[2017-07-17] MEDS: FINASTERIDE 5 MG TAB PO SCH (07:48)
[2017-07-17] MEDS: LORATADINE 10 MG TAB PO SCH (07:48)
[2017-07-17] MEDS: GUAIFENESIN 600 MG TABCR PO SCH ×2 (07:49→19:10)
[2017-07-17 07:54] LABS: BUN/CREATININE RATIO 14.6 (10-20); CREATININE 1.39 mg/dl (0.60-1.40); POTASSIUM 3.9 mmol/L (3.5-5.1)
--- NOTE | 2017-07-17 08:43 | Progress Note ---
Progress Note Date of Service Jul 17, 2017. Progress Note EP consult dictated. Pt known to me from the office. He has persistent probably permanent AF-symptomatic and recommend AV caity ablation next week as an outpatient-my office will contact him for scheduling the procedure.
--- NOTE | 2017-07-17 15:00 | Pulmonary Consultation ---
History General Date of Service: Jul 17, 2017. Stated Complaint: Hypoxia HPI Patient is an 86 yo male well known to the Pulmonary service for history of bronchiectasis, asthma, allergic rhinitis, recent sinusitis, sleep apnea, and chronic hypoxic respiratory failure. The patient recently was seen by Dr. Martinez on 07/11/17 in the office and was thought to have acute sinusitis at the time. He was therefore placed on Levaquin 750 mg daily due to his history of Stenotrophomonas multiple years ago. Patient presented to the emergency department yesterday evening with complaint worsening shortness of breath. The patient typically wears 2 liters of supplemental oxygen by nasal cannula at home, but felt that he was short of breath with his oxygen in place. He was also complaining of cough clear sputum production and tightness in his chest. Since admission, patient was restarted on p.o. Levaquin 750 mg daily along with IV Solu-Medrol 40 mg Q 8 hours. Patient recent history of bronchiectasis exacerbation and bronchitis. He also continues on Atrovent, Singulair, Xopenex, guaifenesin, and Plavix. The patient states that today, he is feeling improved since admission. He feels that his breathing is much easier. He currently on 4 liters via nasal cannula. He continues to have intermittent cough. He states that he did cough up a large amount of sputum this morning which was sent for culture. He continues nebulizer treatments. His sputum and blood cultures are pending. The patient's white blood cell count on admission was 8.22. Point of care lactic acid was 1.77. He did have a chest x-ray yesterday as well which was viewed by me today. His chest x-ray showed moderate stable cardiomegaly and chronic baseline interstitial changes with superimposed possible congestive failure. Patient's most recent PFTs were completed 02/28/2016. FVC was noted to be 4.56/ 87% predicted, FEV1 was 3.16/78% predicted, and FEV1/FVC ratio was 75% predicted. He did not have a noticeable change post bronchodilator. His total lung capacity was 8.96/113 predicted, and his DLCO at that time was 116% predicted. Historian: patient Review of Systems Constitutional: denies: chills, fever Eyes: denies: eye pain ENT: reports: loss of hearing (hearing aids) Cardiovascular: reports: chest tightness, denies: chest pain Respiratory: reports: cough, shortness of breath, sputum production Gastrointestinal: denies: nausea, vomiting Genitourinary - Male: denies: dysuria Integumentary: denies: rash Neurologic: denies: headache All Other Symptoms All Other Systems: Reviewed and Negative Past Medical History Past Medical History: Medical Problems: (1) Arthritis (2) Asthma, moderate persistent (3) Benign prostatic hyperplasia (4) BPH (benign prostatic hypertrophy) (5) CKD (chronic kidney disease) stage 3, GFR 30-59 ml/min (6) GERD (gastroesophageal reflux disease) (7) Heart block (8) History spontaneous hematomas (9) History spontanous hemorrhage (10) Irritable Bowel Syndrome (11) Pacemaker (12) Paroxysmal a-fib (13) PMR (polymyalgia rheumatica) (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 (15) Transient ischemic attack Surgical Problems: (1) H/O nasal polypectomy (2) S/P cholecystectomy (3) Status post surgical removal of malignant neoplasm of skin Family History Alzheimer's disease FATHER Asthma MOTHER SON Heart disease MOTHER SISTER Social History Hx Tobacco Use In Past Year?: No Smoking Status: Never Smoker Alcohol: socially Marital status: Housing status: lives with family Immunizations History of Influenza Vaccine: Yes Influenza Vaccine Date: Jul 01, 2017 History of Tetanus Vaccine?: Yes Tetanus Immunization Date: Jan 04, 2009 History of Pneumococcal: Yes Pneumococcal Date: Apr 07, 2015 History of MDRO History of MDRO: No Allergies Coded Allergies: Aspirin (Verified Allergy, Severe, TIGHTNESS IN CHEST, 07/16/17) NSAIDs (Verified Allergy, Severe, TIGHTNESS IN THE CHEST, 07/16/17) Rofecoxib (Verified Allergy, Severe, TIGHTNESS IN CHEST, 07/16/17) Ibuprofen (Verified Allergy, Intermediate, Asthma Symptoms, 07/16/17) Current Medications Reported Home Medications Medications Dose Route/Sig Max Daily Dose Days Date Category Potassium Chloride Er (Potassium Chloride) 10 Meq Cap 1 Cap PO DAILY 90 07/16/17 Reported Guaifenesin Er (Guaifenesin) 600 Mg Tabcr 600 Mg PO Q12H 07/16/17 Reported Symbicort 80/4.5 Inhaler (Budesonide/Formoterol Fumarate) 120 Puffs/ Aero 2 Puffs INH BID 07/16/17 Reported Calan Sr Ext Rel (Verapamil HCl) 240 Mg Tabcr 240 Mg PO DAILY 07/16/17 Reported Astelin Nasal [place] (Azelastine Hcl) 200 Sprays/30 Ml [place] 2 Sprays NA BID 06/03/17 Reported Oxygen Gas 2 Liters NA HS WITH CPAP 06/03/17 Reported Protonix (Pantoprazole Sodium) 20 Mg Tab 20 Mg PO BID 06/03/17 Reported Flunisolide (Flunisolide (Nasal)) 0.025 % Spr 2 [place] MARVIN BID 06/03/17 Reported Digox (Digoxin) 125 Mcg Tab 125 Mcg PO DAILY 12/01/16 Reported Atrovent 0.02% Soln (Ipratropium [place]) 2.5 Ml Nebu 2.5 Ml NEB QID PRN 11/26/16 Reported Levalbuterol (Levalbuterol Hcl) 1.25 Mg/0.5 Ml Neb 1 Vial NEB QID PRN 11/26/16 Reported Proscar (Finasteride) 5 Mg Tab 5 Mg PO DAILY 10/03/16 Reported Multivitamin (Multivitamins) Tab 1 Tab PO DAILY 07/11/16 Reported Hytrin (Terazosin HCl) 2 Mg Cap 2 Mg PO HS 07/11/16 Reported Plavix (Clopidogrel Bisulfate) 75 Mg Tab 75 Mg PO DAILY 05/09/15 Reported Osteo Bi-Flex Advanced Tr ([facility] [place] [facility] Natural Products) 1 Tab Tab 1 Tab PO BID 01/02/13 Reported Calcium 600 + D (Calcium Carbonate-Vitamin D) 1 Tab Tab 1 Tab PO BID 01/02/13 Reported Singulair (Montelukast Sodium) 10 Mg Tab 10 Mg PO QPM 01/02/13 Reported Claritin (Loratadine) 10 Mg Tab 10 Mg PO DAILY 12/19/07 Reported Physical Physical Exam Vital Signs: Date Time Temp Pulse Resp B/P (MAP) Pulse Ox O2 Delivery O2 Flow Rate FiO2 07/17/17 08:00 Nasal Cannula 4.0 07/17/17 07:25 36.5 106 20 104/71 (82) 90 Nasal Cannula 7.0 07/17/17 07:17 85 16 93 Nasal Cannula 4.0 07/17/17 04:57 36.6 85 20 111/60 (77) 91 Nasal Cannula 4.0 07/17/17 04:00 92 Nasal Cannula 4.0 07/17/17 01:46 66 16 92 Nasal Cannula 4.0 07/17/17 00:45 36.5 102 22 106/67 (80) 91 Nasal Cannula 4.0 07/16/17 23:59 88 Nasal Cannula 2.0 07/16/17 20:28 36.7 86 16 135/87 (103) 90 Nasal Cannula 2.0 07/16/17 20:00 Nasal Cannula 2.0 07/16/17 19:48 89 16 92 Nasal Cannula 2.0 07/16/17 16:41 36.7 101 18 117/70 (86) 91 Nasal Cannula 2.0 07/16/17 15:34 Nasal Cannula 2.0 07/16/17 15:33 36.7 22 113/62 07/16/17 15:03 62 22 113/62 87 07/16/17 14:26 72 19 112/76 94 Nasal Cannula 6.0 07/16/17 13:15 71 25 99/61 92 Nasal Cannula 6.0 07/16/17 12:38 94 Nasal Cannula 6.0 07/16/17 12:12 79 07/16/17 12:09 36.7 81 24 103/56 86 Nasal Cannula 2.0 07/16/17 12:09 86 Nasal Cannula 5.0 General Appearance: WD/WN, NO APPARENT DISTRESS Head: NORMOCEPHALIC, ATRAUMATIC Eyes: PERRLA, SCLERAE NORMAL Neck: NORMAL RANGE OF MOTION, TRACHEA MIDLINE, NO STRIDOR Respiratory: rhonchi, wheezing (moderately severe throughout bilateral lungs) Cardiovasular: irregular rate, abnormal rhythm Abdomen: NORMAL BOWEL SOUNDS Back: NORMAL INSPECTION Upper Extremities: NO EDEMA Lower Extremities: NO EDEMA Neuro: ALERT Psychiatric: NORMAL AFFECT Diagnostics Labs Results Past 24 Hours Test 07/16/17 12:15 07/16/17 12:25 07/16/17 12:50 07/17/17 06:50 Range/Units White Blood Count 8.22 6.70 4.8-10.8 K/uL Red Blood Count 4.38 4.32 4.7-6.1 M/uL Hemoglobin 13.4 13.4 14.0-18.0 g/dL Hematocrit 39.9 39.0 42-52 % Mean Corpuscular Volume 91.1 90.3 80-100 fL Mean Corpuscular Hemoglobin 30.6 31.0 25-34 pg Mean Corpuscular Hemoglobin Concent 33.6 34.4 32-36 g/dl Platelet Count 219 209 130-400 K/uL Mean Platelet Volume 9.4 9.7 7.4-10.4 fL Neutrophils (%) (Auto) 51.6 % Lymphocytes (%) (Auto) 31.3 % Monocytes (%) (Auto) 10.0 % Eosinophils (%) (Auto) 6.2 % Basophils (%) (Auto) 0.5 % Neutrophils # (Auto) 4.25 1.4-6.5 K/uL Lymphocytes # (Auto) 2.57 1.2-3.4 K/uL Monocytes # (Auto) 0.82 0.11-0.59 K/uL Eosinophils # (Auto) 0.51 0-0.5 K/uL Basophils # (Auto) 0.04 0-0.2 K/uL RDW Standard Deviation 46.4 45.6 36.4-46.3 fL RDW Coefficient of Variation 13.9 13.7 11.5-14.5 % Immature Granulocyte % (Auto) 0.4 % Immature Granulocyte # (Auto) 0.03 0.00-0.02 K/uL Prothrombin Time 11.8 9.0-12.0 SECONDS Prothromb Time International Ratio 1.1 0.9-1.1 Activated Partial Thromboplast Time 34.5 21.0-31.0 SECONDS Partial Thromboplastin Ratio 1.3 Sodium Level 138 138 136-145 mmol/L Potassium Level 4.0 3.9 3.5-5.1 mmol/L Chloride Level 106 106 98-107 mmol/L Carbon Dioxide Level 23 23 21-32 mmol/L Anion Gap 9.0 9.0 3-11 mmol/L Blood Urea Nitrogen 17 20 7-18 mg/dl Creatinine 1.35 1.39 0.60-1.40 mg/dl Est Creatinine Clear Calc Drug Dose 49.5 48.1 ml/min Estimated GFR () 54.7 52.8 Estimated GFR (Non- 47.2 45.6 BUN/Creatinine Ratio 12.6 14.6 10-20 Random Glucose 75 135 70-99 mg/dl Calcium Level 8.9 9.0 8.5-10.1 mg/dl Total Bilirubin 0.9 0.2-1 mg/dl Aspartate Amino Transf (AST/SGOT) 27 15-37 U/L Alanine Aminotransferase (ALT/SGPT) 27 12-78 U/L Alkaline Phosphatase 84 45-117 U/L Total Creatine Kinase 255 39-308 U/L Creatine Kinase MB 9.5 0.5-3.6 ng/ml Creatine Kinase MB Ratio 3.7 0-3.0 Troponin I < 0.015 0-0.045 ng/ml Total Protein 6.9 6.4-8.2 gm/dl Albumin 3.3 3.4-5.0 gm/dl Globulin 3.6 2.5-4.0 gm/dl Albumin/Globulin Ratio 0.9 0.9-2 Bedside Lactic Acid Venous 1.77 0.90-1.70 mmol/L Influenza Type A (RT-PCR) Neg for Influ A NEG Influenza Type B (RT-PCR) Neg for Influ B NEG Microbiology Results 07/16/17 Blood Culture, Received Pending 07/16/17 Blood Culture, Received Pending 07/17/17 Gram Stain, Received Pending 07/17/17 Sputum Culture, Received Pending Diagnostic Radiology CHEST ONE VIEW PORTABLE CLINICAL HISTORY: sob dyspnea COMPARISON STUDY: 07/11/2017 FINDINGS: Mild stable cardiomegaly. Permanent bipolar cardiac pacemaker. Chronic pulmonary vascular congestion. Chronic parenchymal fibrosis. IMPRESSION: Moderate stable cardiomegaly. Chronic baseline interstitial change with a superimposed component of interstitial congestive failure EKG Atrial fibrillation premature ventricular or abnormally conducted complexes, right bundle-branch block, nonspecific ST and T-wave abnormalities. EKG viewed by me. Impression Assessment and Plan Acute on chronic hypoxic respiratory failure Acute on chronic bronchiectasis exacerbation Asthma Atrial fibrillation CKD stage 3 Patient appears to have an acute exacerbation bronchiectasis. Appears to be slightly improved in regards to his acute sinusitis diagnosed by Dr. Martinez last week. His chest x-ray shows chronic interstitial changes, but no pronounced pneumonia. Patient is currently on p.o. Levaquin 750 mg daily along with IV Solu-Medrol. Recommend continuation of antibiotics at this time along with tapering steroid regimen. Feel that he likely needs at least 1 more day of IV steroids due to his continued moderately severe rhonchi/wheezing on exam. He is overall feeling improved compared to yesterday. Flutter valve ordered for this patient last night. I encouraged continued use of flutter valve. I also ordered a vibration vest for the patient while in- house. Will follow sputum and blood cultures. Likely will discontinue Levaquin after completion a 7 day course (currently on day 6). Continue to monitor oxygen saturation. Supplement O2 via nasal cannula to keep patient ideally between 88-92%. We will continue to follow this patient
[2017-07-17] MEDS: DIGOXIN 0.125 MG TAB PO SCH (16:17)
[2017-07-17] MEDS ORDERED: NURSING DECISION MEDICATION ORDER SCH (18:00)
[2017-07-17] MEDS ORDERED: COUGH DROP (SUGAR FREE) LOZ 24 LOZ/1 BOX PO PRN (18:00)
[2017-07-17] MEDS: ENOXAPARIN 40 MG/0.4 ML SYR SC SCH (19:08)
[2017-07-17] MEDS: LEVOFLOXACIN 750 MG TAB PO SCH (19:09)
[2017-07-17] MEDS: MONTELUKAST SOD 10 MG TAB PO SCH (19:10)
[2017-07-17] MEDS: LORAZEPAM 0.5 MG TAB PO PRN (19:16)
--- NOTE | 2017-07-17 19:35 | Progress Note ---
Medicine Progress Note Date & Time of Visit: Jul 17, 2017 at 19:35. Subjective Patient reports having a rough night due to being unable to sleep and feeling jumpy/jittery from the steroids. No other complaints at this time. States he walked well in the halls with therapy today. Objective Last 8 Hrs Date Time Temp Pulse Resp B/P (MAP) Pulse Ox O2 Delivery O2 Flow Rate FiO2 07/17/17 16:17 89 07/17/17 16:00 Nasal Cannula 4.0 07/17/17 15:40 36.4 89 19 111/63 (79) 91 Nasal Cannula 4.0 07/17/17 14:42 85 16 93 Nasal Cannula 4.0 07/17/17 12:00 Nasal Cannula 4.0 Physical Exam: GENERAL: Patient is in no acute distress. HEENT: No acute trauma, normocephalic, mucous membranes moist, no nasal congestion, no scleral icterus. Conjunctivae clear. NECK: No stridor, trachea is midline. LUNGS: Diffuse wheezing and rhonchi bilaterally, breath sounds equal. No rales. Unrelenting coughing present HEART: Without murmurs gallops or rubs, regular rate and rhythm. ABDOMEN: Soft, nontender, bowel sounds positive EXTREMITIES: No cyanosis or edema, full range of motion of all the joints without pain or difficulty, no signs for acute trauma. NEUROLOGIC: Oriented x 3, no acute motor or sensory deficits, no focal weakness. SKIN: No rash, no jaundice, no diaphoresis. Laboratory Results: Last 24 Hours Test 07/17/17 06:50 07/17/17 11:15 White Blood Count 6.70 K/uL Red Blood Count 4.32 M/uL Hemoglobin 13.4 g/dL Hematocrit 39.0 % Mean Corpuscular Volume 90.3 fL Mean Corpuscular Hemoglobin 31.0 pg Mean Corpuscular Hemoglobin Concent 34.4 g/dl RDW Standard Deviation 45.6 fL RDW Coefficient of Variation 13.7 % Platelet Count 209 K/uL Mean Platelet Volume 9.7 fL Sodium Level 138 mmol/L Potassium Level 3.9 mmol/L Chloride Level 106 mmol/L Carbon Dioxide Level 23 mmol/L Anion Gap 9.0 mmol/L Blood Urea Nitrogen 20 mg/dl Creatinine 1.39 mg/dl Est Creatinine Clear Calc Drug Dose 48.1 ml/min Estimated GFR () 52.8 Estimated GFR (Non- 45.6 BUN/Creatinine Ratio 14.6 Random Glucose 135 mg/dl Calcium Level 9.0 mg/dl Procalcitonin < 0.05 ng/ml Date/Time Source Procedure Growth Status 07/17/17 05:15 Sputum Expectorated Sputum Gram Stain - Final Resulted 07/17/17 05:15 Sputum Expectorated Sputum Sputum Culture Pending Resulted Assessment & Plan ACUTE ON CHRONIC HYPOXIC RESPIRATORY FAILURE: -likely secondary to bronchiectasis exacerbation and/or asthma exacerbation -presented with increasing shortness of breath for 1 week, was placed on Levaquin as outpatient on 07/11; no improvement thus came to the ER for SOB and was found to be hypoxic in the 80s on 2L, currently requiring 6L via NC -no infiltrate on CXR -was placed on Levaquin due to history of growing Stenotrophomonas (as outpatient, this was continued for the remainder of the 7 day course) -patient is typically on azithromycin suppression therapy 3x week however currently being held while on Levaquin; can resume once levaquin is completed -IV steroids, scheduled and PRN nebs -continue Symbicort -flutter valve to help mobilize secretions -Pulmonary consulted, appreciate recommendations, have also suggested percussive vest therapy -PRN cough suppressant ATRIAL FIBRILLATION, HX TACHYBRADY S/P PACEMAKER -rate controlled -continue on Verapamil and digoxin -not anticoagulated due to bleeding complications and hematomas in the past HX Of TIA: -continue on Plavix (asa allergy) CKD STAGE III: -baseline cr usually low 1's -at baseline -monitor -avoid nephrotoxic agents when able BPH: -continue finasteride Current Inpatient Medications: Current Inpatient Medications Medications (Trade) Dose Ordered Sig/Kaash Route Start Time Stop Time Status Last Admin Dose Admin Enoxaparin Sodium (Lovenox Inj) 40 mg HS SC 07/16/17 21:00 08/15/17 20:59 07/17/17 19:08 40 MG Acetaminophen (Tylenol Tab) 650 mg Q4H PRN PO 07/16/17 15:15 08/15/17 15:14 07/17/17 01:38 650 MG Ondansetron HCl (Zofran Inj) 4 mg Q6H PRN IV 07/16/17 15:15 12/8/17 15:14 Methylprednisolone Sodium Succinate 40 mg/Syringe 0.64 ml @ 1.5 mls/min Q8H IV 07/16/17 18:00 08/15/17 17:59 07/17/17 17:23 1.5 MLS/MIN Levalbuterol (Xopenex 1.25MG/ 0.5ML Neb) 1.25 mg Q6R INH 07/16/17 21:00 08/15/17 20:59 07/17/17 14:42 1.25 MG Ipratropium [place] (Atrovent 0.02% 0.5MG/2.5ML Neb) 0.5 mg Q6R INH 07/16/17 21:00 08/15/17 20:59 07/17/17 14:42 0.5 MG Clopidogrel Bisulfate (plAVix TAB) 75 mg DAILY PO 07/17/17 09:00 08/16/17 08:59 07/17/17 07:44 75 MG Digoxin (Lanoxin Tab) 0.125 mg DAILY@1600 PO 07/17/17 16:00 08/16/17 15:59 07/17/17 16:17 0.125 MG Finasteride (Proscar Tab) 5 mg DAILY PO 07/17/17 09:00 08/16/17 08:59 07/17/17 07:48 5 MG Loratadine (Claritin Tab) 10 mg DAILY PO 07/17/17 09:00 08/16/17 08:59 07/17/17 07:48 10 MG Montelukast Sodium (Singulair Tab) 10 mg QPM PO 07/16/17 21:00 08/15/17 20:59 07/17/17 19:10 10 MG Multivitamins (Multivitamin Tab) 1 tab DAILY PO 07/17/17 09:00 08/16/17 08:59 07/17/17 07:44 1 TAB Terazosin HCl (Hytrin Cap) 2 mg HS PO 07/16/17 21:00 08/15/17 20:59 07/17/17 19:11 2 MG Verapamil HCl (Calan-Sr Tab) 240 mg DAILY PO 07/17/17 09:00 08/16/17 08:59 07/17/17 07:48 240 MG Calcium/Vitamin D (Caltrate Plus Tab) 1 tab BID PO 07/16/17 21:00 08/15/17 20:59 07/17/17 19:11 1 TAB Pantoprazole Sodium (Protonix Tab) 40 mg BID PO 07/16/17 21:00 08/15/17 20:59 07/17/17 19:11 40 MG Budesonide/ Formoterol Fumarate (Symbicort 80/ 4.5 Inh) 2 puffs BID INH 07/16/17 21:00 08/15/17 20:59 07/17/17 19:08 2 PUFFS Guaifenesin (Mucinex Contr Rel Tab) 600 mg Q12 PO 07/16/17 17:00 08/15/17 16:59 07/17/17 19:10 600 MG Potassium Chloride (Klor-Con M10) 10 meq DAILY PO 07/17/17 09:00 08/16/17 08:59 07/17/17 07:48 10 MEQ Levofloxacin (Levaquin Tab) 750 mg DAILY@2100 PO 07/17/17 21:00 07/18/17 21:01 07/17/17 19:09 750 MG Menthol (Nice Leonardo) 1 leonardo PRN PRN PO 07/17/17 18:00 08/16/17 17:59 07/17/17 18:14 1 LEONARDO Benzonatate (Tessalon Perles Cap) 100 mg Q6 PRN PO 07/17/17 19:00 08/16/17 18:59 Lorazepam (Ativan Tab) 0.5 mg HSZ PRN PO 07/17/17 19:00 08/16/17 18:59 07/17/17 19:16 0.5 MG
[2017-07-17] MEDS: BENZONATATE 100MG CAP PO PRN (20:22)
[2017-07-18] VITALS (12 sets, daily range): BP systolic 107–134; BP diastolic 55–83; PULSE 60–96; TEMP 36.4–36.9; O2SAT 90–97
[2017-07-18] MEDS: LEVALBUTEROL 1.25MG/0.5ML NEB INH SCH ×4 (01:36→20:33)
[2017-07-18] MEDS: IPRATROPIUM BROMIDE NEB SOLN 0.02% 2.5 ML VIAL INH SCH ×4 (01:36→20:33)
[2017-07-18] MEDS: MULTIVITAMIN TAB PO SCH (07:22)
[2017-07-18] MEDS: VERAPAMIL HCL 240 MG TABCR PO SCH (07:22)
[2017-07-18] MEDS: FINASTERIDE 5 MG TAB PO SCH (07:24)
[2017-07-18] MEDS: CALCIUM 600MG + VIT D 400 IU TAB PO SCH ×2 (07:25→21:20)
[2017-07-18] MEDS: POTASSIUM CHLORIDE 10 MEQ TABCR PO SCH (07:25)
[2017-07-18] MEDS: LORATADINE 10 MG TAB PO SCH (07:25)
[2017-07-18] MEDS: CLOPIDOGREL BISULFATE 75 MG TAB PO SCH (07:25)
[2017-07-18] MEDS: GUAIFENESIN 600 MG TABCR PO SCH ×2 (07:26→21:21)
[2017-07-18] MEDS: PANTOprazole SOD 40 MG TAB PO SCH ×2 (07:26→21:21)
[2017-07-18] MEDS: BUDESONIDE/FORMOTEROL FUMARATE 80/4.5 60 PUFFS/INHALER INH SCH ×2 (07:26→21:20)
[2017-07-18] MEDS: METHYLPREDNISOLONE IV 40 MG in SYRINGE 0 ML IV SCH ×2 (08:09→18:17)
--- NOTE | 2017-07-18 14:00 | Pulmonology Progress Note ---
Pulmonary Progress Note Date of Service Jul 18, 2017. Attending Dr. Sheldon Subjective Patient is feeling slightly improved today. he has not been coughing as much as yesterday, and his cough is nonproductive today. He did have a sputum culture completed which is showing moderate normal marisabel. Blood cultures showing no date. Procalcitonin was negative. No new labs. No new imaging. Micro reviewed as above. Medications reviewed. ROS otherwise negative. Objective Vital signs reviewed: Afebrile Heart rate 94 Respiratory rate 18 Blood pressure 134/83 SA O2 94% on 6 liters General: Patient is awake, alert, cooperative, and in no acute distress. Well developed. Well-nourished. Head: Normocephalic, Atraumatic. ENT: PERRLA, No discharge, EOMI, Sclera normal Neck: Normal ROM. Trachea midline. No stridor Respiratory: Patient mild rhonchi throughout lungs. Pleural rub noted at the left base. Very slight wheeze on exam today. Patient is currently on 6 liters via nasal cannula Cardiovascular: Tachycardia. Abdomen: Nontender to palpation. Normal bowel sounds hear throughout. No guarding. Abdomen is soft and nontender Back: Normal inspection. Extremities: No edema, cyanosis. Normal ROM Neuro: Alert, Oriented x 3. CN II-XII grossly intact. Sensation and motor function grossly intact. Psych: Mood and affect are normal. Assessment & Plan Acute on chronic hypoxic respiratory failure Acute on chronic bronchiectasis exacerbation Asthma Atrial fibrillation CKD stage 3 Patient with acute exacerbation of bronchiectasis. He is improving overall. His chest x-ray shows chronic interstitial changes, but no pronounced pneumonia. Patient is currently on p.o. Levaquin 750 mg daily along with IV Solu-Medrol. Will discontinue antibiotic therapy today since he has completed 7 days total. Will also taper to PO Prednisone 40 mg daily. Recommend tapering this patient by 5 mg every 3 days until finished. Patient continuing with flutter valve and vibration vest. The patient is still requiring a large amount oxygen this morning. He states that this is due to a coughing attack night. Recommend tapering this patient's oxygen supplementation today. Continue to monitor oxygen saturation. Supplement O2 via nasal cannula to keep patient ideally between 88-92%. If he is able to saturate well on 2-3 liters, the patient likely will be ready for discharge. Patient will need follow-up with [facility] within 1 week of discharge. Data Medications: Current Inpatient Medications Medications (Trade) Dose Ordered Sig/Akash Route Start Time Stop Time Status Last Admin Dose Admin Enoxaparin Sodium (Lovenox Inj) 40 mg HS SC 07/16/17 21:00 08/15/17 20:59 07/17/17 19:08 40 MG Acetaminophen (Tylenol Tab) 650 mg Q4H PRN PO 07/16/17 15:15 08/15/17 15:14 07/17/17 01:38 650 MG Ondansetron HCl (Zofran Inj) 4 mg Q6H PRN IV 07/16/17 15:15 08/15/17 15:14 Methylprednisolone Sodium Succinate 40 mg/Syringe 0.64 ml @ 1.5 mls/min Q8H IV 07/16/17 18:00 08/15/17 17:59 07/18/17 08:09 1.5 MLS/MIN Levalbuterol (Xopenex 1.25MG/ 0.5ML Neb) 1.25 mg Q6R INH 07/16/17 21:00 08/15/17 20:59 07/18/17 07:29 1.25 MG Ipratropium [employer] (Atrovent 0.02% 0.5MG/2.5ML Neb) 0.5 mg Q6R INH 07/16/17 21:00 08/15/17 20:59 07/18/17 07:29 0.5 MG Clopidogrel Bisulfate (plAVix TAB) 75 mg DAILY PO 07/17/17 09:00 08/16/17 08:59 07/18/17 07:25 75 MG Digoxin (Lanoxin Tab) 0.125 mg DAILY@1600 PO 07/17/17 16:00 08/16/17 15:59 07/17/17 16:17 0.125 MG Finasteride (Proscar Tab) 5 mg DAILY PO 07/17/17 09:00 08/16/17 08:59 07/18/17 07:24 5 MG Loratadine (Claritin Tab) 10 mg DAILY PO 07/17/17 09:00 08/16/17 08:59 07/18/17 07:25 10 MG Montelukast Sodium (Singulair Tab) 10 mg QPM PO 07/16/17 21:00 08/15/17 20:59 07/17/17 19:10 10 MG Multivitamins (Multivitamin Tab) 1 tab DAILY PO 07/17/17 09:00 08/16/17 08:59 07/18/17 07:22 1 TAB Terazosin HCl (Hytrin Cap) 2 mg HS PO 07/16/17 21:00 08/15/17 20:59 07/17/17 19:11 2 MG Verapamil HCl (Calan-Sr Tab) 240 mg DAILY PO 07/17/17 09:00 08/16/17 08:59 07/18/17 07:22 240 MG Calcium/Vitamin D (Caltrate Plus Tab) 1 tab BID PO 07/16/17 21:00 08/15/17 20:59 07/18/17 07:25 1 TAB Pantoprazole Sodium (Protonix Tab) 40 mg BID PO 07/16/17 21:00 08/15/17 20:59 07/18/17 07:26 40 MG Budesonide/ Formoterol Fumarate (Symbicort 80/ 4.5 Inh) 2 puffs BID INH 07/16/17 21:00 08/15/17 20:59 07/18/17 07:26 2 PUFFS Guaifenesin (Mucinex Contr Rel Tab) 600 mg Q12 PO 07/16/17 17:00 08/15/17 16:59 07/18/17 07:26 600 MG Potassium Chloride (Klor-Con M10) 10 meq DAILY PO 07/17/17 09:00 08/16/17 08:59 07/18/17 07:25 10 MEQ Levofloxacin (Levaquin Tab) 750 mg DAILY@2100 PO 07/17/17 21:00 07/18/17 21:01 07/17/17 19:09 750 MG Menthol (Nice Catherine) 1 catherine PRN PRN PO 07/17/17 18:00 08/16/17 17:59 07/17/17 18:14 1 CATHERINE Benzonatate (Tessalon Perles Cap) 100 mg Q6 PRN PO 07/17/17 19:00 08/16/17 18:59 07/17/17 20:22 100 MG Lorazepam (Ativan Tab) 0.5 mg HSZ PRN PO 07/17/17 19:00 08/16/17 18:59 07/17/17 19:16 0.5 MG Vital Signs: Date Time Temp Pulse Resp B/P (MAP) Pulse Ox O2 Delivery O2 Flow Rate FiO2 07/18/17 13:15 36.7 94 18 134/83 (100) 97 07/18/17 12:00 94 Nasal Cannula 6.0 07/18/17 08:00 94 Nasal Cannula 6.0 07/18/17 07:50 36.9 96 20 122/76 (91) 94 Nasal Cannula 6.0 07/18/17 07:29 60 18 90 Nasal Cannula 6.0 07/18/17 04:00 Nasal Cannula 6.0 07/18/17 03:58 36.4 89 22 107/55 (72) 90 Nasal Cannula 6.0 07/18/17 01:36 93 18 93 Nasal Cannula 6.0 07/17/17 23:59 Nasal Cannula 4.0 07/17/17 23:20 36.8 78 20 110/64 (79) 91 Nasal Cannula 6.0 07/17/17 20:00 Nasal Cannula 6.0 07/17/17 19:52 36.8 84 22 140/54 (82) 88 Nasal Cannula 4.0 07/17/17 19:35 86 22 85 Nasal Cannula 4.0 07/17/17 16:17 89 07/17/17 16:00 Nasal Cannula 4.0 07/17/17 15:40 36.4 89 19 111/63 (79) 91 Nasal Cannula 4.0 07/17/17 14:42 85 16 93 Nasal Cannula 4.0
[2017-07-18] MEDS: DIGOXIN 0.125 MG TAB PO SCH (16:26)
--- NOTE | 2017-07-18 19:20 | Progress Note ---
Medicine Progress Note Date & Time of Visit: Jul 18, 2017 at 19:20. Subjective Patient reports feeling better overall, has not had any episodes of intractable cough as he did the day before. No overnight events noted. Non productive cough present. Wheezing present but patient states he has some degree of wheezing all the time. Still requiring 6L oxygen. Objective Last 8 Hrs Date Time Temp Pulse Resp B/P (MAP) Pulse Ox O2 Delivery O2 Flow Rate FiO2 07/18/17 16:26 70 07/18/17 15:24 36.4 74 20 112/65 (81) 90 Nasal Cannula 4.0 Humidified Oxygen 07/18/17 14:54 72 18 91 Nasal Cannula 6.0 07/18/17 13:15 36.7 94 18 134/83 (100) 97 07/18/17 12:00 94 Nasal Cannula 6.0 Physical Exam: GENERAL: Patient is in no acute distress. HEENT: No acute trauma, normocephalic, mucous membranes moist, no nasal congestion, no scleral icterus. Conjunctivae clear. NECK: No stridor, trachea is midline. LUNGS: Wheezing bilaterally on exhalation, breath sounds equal. No rales. HEART: Without murmurs gallops or rubs, regular rate and rhythm. ABDOMEN: Soft, nontender, bowel sounds positive EXTREMITIES: No cyanosis or edema, full range of motion of all the joints without pain or difficulty, no signs for acute trauma. NEUROLOGIC: Oriented x 3, no acute motor or sensory deficits, no focal weakness. SKIN: No rash, no jaundice, no diaphoresis. Assessment & Plan ACUTE ON CHRONIC HYPOXIC RESPIRATORY FAILURE: -likely secondary to bronchiectasis exacerbation and/or asthma exacerbation -presented with increasing shortness of breath for 1 week, was placed on Levaquin as outpatient on 07/11; no improvement thus came to the ER for SOB and was found to be hypoxic in the 80s on 2L, currently requiring 5-6L via NC -no infiltrate on CXR -was placed on Levaquin due to history of growing Stenotrophomonas (as outpatient, this was continued for the remainder of the 7 day course) -patient is typically on azithromycin suppression therapy 3x week however currently being held while on Levaquin; can resume once levaquin is completed -IV steroids, scheduled and PRN nebs; steroids to be weaned as per Pulm note -continue Symbicort -flutter valve to help mobilize secretions -Pulmonary consulted, appreciate recommendations, have also suggested percussive vest therapy; have also added -PRN cough suppressant -also on mucinex ATRIAL FIBRILLATION, HX TACHYBRADY S/P PACEMAKER -rate controlled -continue on Verapamil and digoxin -not anticoagulated due to bleeding complications and hematomas in the past -is scheduled for an ablation upcoming HX Of TIA: -continue on Plavix (asa allergy) CKD STAGE III: -baseline cr usually low 1's -at baseline -monitor -avoid nephrotoxic agents when able BPH: -continue finasteride Current Inpatient Medications: Current Inpatient Medications Medications (Trade) Dose Ordered Sig/Akash Route Start Time Stop Time Status Last Admin Dose Admin Enoxaparin Sodium (Lovenox Inj) 40 mg HS SC 07/16/17 21:00 08/15/17 20:59 07/17/17 19:08 40 MG Acetaminophen (Tylenol Tab) 650 mg Q4H PRN PO 07/16/17 15:15 08/15/17 15:14 07/17/17 01:38 650 MG Ondansetron HCl (Zofran Inj) 4 mg Q6H PRN IV 07/16/17 15:15 08/15/17 15:14 Methylprednisolone Sodium Succinate 40 mg/Syringe 0.64 ml @ 1.5 mls/min Q8H IV 07/16/17 18:00 08/15/17 17:59 07/18/17 18:17 1.5 MLS/MIN Levalbuterol (Xopenex 1.25MG/ 0.5ML Neb) 1.25 mg Q6R INH 07/16/17 21:00 08/15/17 20:59 07/18/17 14:53 1.25 MG Ipratropium [place] (Atrovent 0.02% 0.5MG/2.5ML Neb) 0.5 mg Q6R INH 07/16/17 21:00 08/15/17 20:59 07/18/17 14:53 0.5 MG Clopidogrel Bisulfate (plAVix TAB) 75 mg DAILY PO 07/17/17 09:00 08/16/17 08:59 07/18/17 07:25 75 MG Digoxin (Lanoxin Tab) 0.125 mg DAILY@1600 PO 07/17/17 16:00 08/16/17 15:59 07/18/17 16:26 0.125 MG Finasteride (Proscar Tab) 5 mg DAILY PO 07/17/17 09:00 08/16/17 08:59 07/18/17 07:24 5 MG Loratadine (Claritin Tab) 10 mg DAILY PO 07/17/17 09:00 08/16/17 08:59 07/18/17 07:25 10 MG Montelukast Sodium (Singulair Tab) 10 mg QPM PO 07/16/17 21:00 08/15/17 20:59 07/17/17 19:10 10 MG Multivitamins (Multivitamin Tab) 1 tab DAILY PO 07/17/17 09:00 08/16/17 08:59 07/18/17 07:22 1 TAB Terazosin HCl (Hytrin Cap) 2 mg HS PO 07/16/17 21:00 08/15/17 20:59 07/17/17 19:11 2 MG Verapamil HCl (Calan-Sr Tab) 240 mg DAILY PO 07/17/17 09:00 08/16/17 08:59 07/18/17 07:22 240 MG Calcium/Vitamin D (Caltrate Plus Tab) 1 tab BID PO 07/16/17 21:00 08/15/17 20:59 07/18/17 07:25 1 TAB Pantoprazole Sodium (Protonix Tab) 40 mg BID PO 07/16/17 21:00 08/15/17 20:59 07/18/17 07:26 40 MG Budesonide/ Formoterol Fumarate (Symbicort 80/ 4.5 Inh) 2 puffs BID INH 07/16/17 21:00 08/15/17 20:59 07/18/17 07:26 2 PUFFS Guaifenesin (Mucinex Contr Rel Tab) 600 mg Q12 PO 07/16/17 17:00 08/15/17 16:59 07/18/17 07:26 600 MG Potassium Chloride (Klor-Con M10) 10 meq DAILY PO 07/17/17 09:00 08/16/17 08:59 07/18/17 07:25 10 MEQ Levofloxacin (Levaquin Tab) 750 mg DAILY@2100 PO 07/17/17 21:00 07/18/17 21:01 07/17/17 19:09 750 MG Menthol (Nice Leonardo) 1 leonardo PRN PRN PO 07/17/17 18:00 08/16/17 17:59 07/17/17 18:14 1 LEONARDO Benzonatate (Tessalon Perles Cap) 100 mg Q6 PRN PO 07/17/17 19:00 08/16/17 18:59 07/17/17 20:22 100 MG Lorazepam (Ativan Tab) 0.5 mg HSZ PRN PO 07/17/17 19:00 08/16/17 18:59 07/17/17 19:16 0.5 MG
[2017-07-18] MEDS: MONTELUKAST SOD 10 MG TAB PO SCH (21:23)
[2017-07-18] MEDS: ENOXAPARIN 40 MG/0.4 ML SYR SC SCH (21:23)
[2017-07-18] MEDS: LEVOFLOXACIN 750 MG TAB PO SCH (21:24)
[2017-07-19] VITALS (12 sets, daily range): BP systolic 111–145; BP diastolic 74–82; PULSE 67–99; TEMP 36.3–36.6; O2SAT 89–92
[2017-07-19] MEDS: LEVALBUTEROL 1.25MG/0.5ML NEB INH SCH ×5 (02:09→22:33)
[2017-07-19] MEDS: IPRATROPIUM BROMIDE NEB SOLN 0.02% 2.5 ML VIAL INH SCH ×5 (02:10→22:33)
[2017-07-19] MEDS: METHYLPREDNISOLONE IV 40 MG in SYRINGE 0 ML IV SCH ×2 (02:30→10:13)
[2017-07-19] MEDS: CALCIUM 600MG + VIT D 400 IU TAB PO SCH ×2 (07:39→21:13)
[2017-07-19] MEDS: GUAIFENESIN 600 MG TABCR PO SCH ×2 (07:40→21:12)
[2017-07-19] MEDS: MULTIVITAMIN TAB PO SCH (07:41)
[2017-07-19] MEDS: LORATADINE 10 MG TAB PO SCH (07:41)
[2017-07-19] MEDS: PANTOprazole SOD 40 MG TAB PO SCH ×2 (07:41→21:13)
[2017-07-19] MEDS: BENZONATATE 100MG CAP PO PRN (07:41)
[2017-07-19] MEDS: CLOPIDOGREL BISULFATE 75 MG TAB PO SCH (07:41)
[2017-07-19] MEDS: FINASTERIDE 5 MG TAB PO SCH (07:42)
[2017-07-19] MEDS: POTASSIUM CHLORIDE 10 MEQ TABCR PO SCH (07:42)
[2017-07-19] MEDS: BUDESONIDE/FORMOTEROL FUMARATE 80/4.5 60 PUFFS/INHALER INH SCH ×2 (07:43→21:12)
[2017-07-19] MEDS: VERAPAMIL HCL 240 MG TABCR PO SCH (07:43)
[2017-07-19] MEDS ORDERED: NYSTATIN SUSP 500,000 U/5 ML UDC PO STA (11:12)
[2017-07-19] MEDS ORDERED: SODIUM CHLORIDE 0.65% NA SOLN 45 ML (OCEAN) PRN (13:45)
--- NOTE | 2017-07-19 14:00 | Pulmonology Progress Note ---
Pulmonary Progress Note Date of Service Jul 19, 2017. Attending Dr. Sheldon Subjective Patient seen and examined at bedside. He states that he is feeling better today. He slept well overnight. Less coughing today. He is requesting something for post nasal drip. Objective Vital signs reviewed: Tm 36.6, BP 111/75-129/81, P67-99, RR 18-19, SaO2 89-92% on 3-4 LNC. General: Patient is awake, alert, cooperative, and in no acute distress. Well developed. Well-nourished. Head: Normocephalic, Atraumatic. ENT: PERRLA, No discharge, EOMI, Sclera normal Neck: Normal ROM. Trachea midline. No stridor Respiratory: Scattered wheezing bilaterally. Speaking in full sentences without use of accessory muscles of respiration. Cardiovascular: S1, S2, irregularly irregular Abdomen: Nontender to palpation. Normal bowel sounds hear throughout. No guarding. Abdomen is soft and nontender Back: Normal inspection. Extremities: No edema, cyanosis. Normal ROM Neuro: Alert, Oriented x 3. CN II-XII grossly intact. Sensation and motor function grossly intact. Psych: Mood and affect are normal. Labs reviewed. Imaging viewed and reviewed by me. Medications reviewed. Assessment & Plan Acute on chronic hypoxic respiratory failure Acute on chronic bronchiectasis exacerbation Asthma Rhinitis Atrial fibrillation CKD stage 3 Will also taper to PO Prednisone 50mg daily. Recommend tapering this patient by 10 mg every 2 days until finished. Continue with flutter valve and vibration vest. Continue with nasal cannula to keep patient ideally between 88-92%. If he is able to saturate well on 2-3 liters, the patient likely will be ready for discharge. Given fluticasone nasal spray and saline for rhinitis. Nystatin swish swallow given for + fungus in sputum culture. Patient will need follow-up with [facility] within 1 week of discharge. Data Medications: Current Inpatient Medications Medications (Trade) Dose Ordered Sig/Akash Route Start Time Stop Time Status Last Admin Dose Admin Enoxaparin Sodium (Lovenox Inj) 40 mg HS SC 07/16/17 21:00 08/15/17 20:59 07/18/17 21:23 40 MG Acetaminophen (Tylenol Tab) 650 mg Q4H PRN PO 07/16/17 15:15 08/15/17 15:14 07/17/17 01:38 650 MG Ondansetron HCl (Zofran Inj) 4 mg Q6H PRN IV 07/16/17 15:15 08/15/17 15:14 Levalbuterol (Xopenex 1.25MG/ 0.5ML Neb) 1.25 mg Q6R INH 07/16/17 21:00 08/15/17 20:59 07/19/17 07:40 1.25 MG Ipratropium [place] (Atrovent 0.02% 0.5MG/2.5ML Neb) 0.5 mg Q6R INH 07/16/17 21:00 08/15/17 20:59 07/19/17 07:40 0.5 MG Clopidogrel Bisulfate (plAVix TAB) 75 mg DAILY PO 07/17/17 09:00 08/16/17 08:59 07/19/17 07:41 75 MG Digoxin (Lanoxin Tab) 0.125 mg DAILY@1600 PO 07/17/17 16:00 08/16/17 15:59 07/18/17 16:26 0.125 MG Finasteride (Proscar Tab) 5 mg DAILY PO 07/17/17 09:00 08/16/17 08:59 07/19/17 07:42 5 MG Loratadine (Claritin Tab) 10 mg DAILY PO 07/17/17 09:00 08/16/17 08:59 07/19/17 07:41 10 MG Montelukast Sodium (Singulair Tab) 10 mg QPM PO 07/16/17 21:00 08/15/17 20:59 07/18/17 21:23 10 MG Multivitamins (Multivitamin Tab) 1 tab DAILY PO 07/17/17 09:00 08/16/17 08:59 07/19/17 07:41 1 TAB Terazosin HCl (Hytrin Cap) 2 mg HS PO 07/16/17 21:00 08/15/17 20:59 07/18/17 21:22 2 MG Verapamil HCl (Calan-Sr Tab) 240 mg DAILY PO 07/17/17 09:00 08/16/17 08:59 07/19/17 07:43 240 MG Calcium/Vitamin D (Caltrate Plus Tab) 1 tab BID PO 07/16/17 21:00 08/15/17 20:59 07/19/17 07:39 1 TAB Pantoprazole Sodium (Protonix Tab) 40 mg BID PO 07/16/17 21:00 08/15/17 20:59 07/19/17 07:41 40 MG Budesonide/ Formoterol Fumarate (Symbicort 80/ 4.5 Inh) 2 puffs BID INH 07/16/17 21:00 08/15/17 20:59 07/19/17 07:43 2 PUFFS Guaifenesin (Mucinex Contr Rel Tab) 600 mg Q12 PO 07/16/17 17:00 08/15/17 16:59 07/19/17 07:40 600 MG Potassium Chloride (Klor-Con M10) 10 meq DAILY PO 07/17/17 09:00 08/16/17 08:59 07/19/17 07:42 10 MEQ Menthol (Nice Leonardo) 1 leonardo PRN PRN PO 07/17/17 18:00 08/16/17 17:59 07/17/17 18:14 1 LEONARDO Benzonatate (Tessalon Perles Cap) 100 mg Q6 PRN PO 07/17/17 19:00 08/16/17 18:59 07/19/17 07:41 100 MG Lorazepam (Ativan Tab) 0.5 mg HSZ PRN PO 07/17/17 19:00 08/16/17 18:59 07/17/17 19:16 0.5 MG Prednisone (PredniSONE TAB) 50 mg DAILY PO 07/20/17 09:00 08/19/17 08:59 Nystatin (Mycostatin Susp) 5 ml QID PO 07/19/17 13:00 07/29/17 12:59 Vital Signs: Date Time Temp Pulse Resp B/P (MAP) Pulse Ox O2 Delivery O2 Flow Rate FiO2 07/19/17 12:00 Nasal Cannula 3.0 07/19/17 12:00 36.6 93 18 121/82 (95) 90 Nasal Cannula 3.0 07/19/17 08:00 Nasal Cannula 3.0 07/19/17 07:40 36.4 99 18 111/75 (87) 89 Nasal Cannula 3.0 07/19/17 07:40 77 18 90 Nasal Cannula 4.0 07/19/17 04:15 36.5 94 19 121/74 (90) 91 Nasal Cannula 4.0 07/19/17 04:00 Nasal Cannula 3.0 07/19/17 02:10 67 18 90 Nasal Cannula 4.0 07/19/17 00:13 36.3 89 18 129/81 (97) 90 Nasal Cannula 4.0 07/18/17 23:59 Nasal Cannula 3.0 07/18/17 20:34 74 18 93 Nasal Cannula 4.0 07/18/17 20:00 Nasal Cannula 3.0 Humidified Oxygen 07/18/17 18:57 36.4 73 20 114/73 (87) 90 Nasal Cannula 4.0 Humidified Oxygen 07/18/17 16:26 70 07/18/17 16:00 90 Nasal Cannula 3.0 Humidified Oxygen 07/18/17 15:24 36.4 74 20 112/65 (81) 90 Nasal Cannula 4.0 Humidified Oxygen 07/18/17 14:54 72 18 91 Nasal Cannula 6.0
[2017-07-19] MEDS: NYSTATIN SUSP 500,000 U/5 ML UDC PO SCH ×3 (14:18→21:13)
[2017-07-19] MEDS: DIGOXIN 0.125 MG TAB PO SCH (15:38)
--- NOTE | 2017-07-19 18:55 | Progress Note ---
Medicine Progress Note Date & Time of Visit: Jul 19, 2017 at 18:45. Subjective Patient reports feeling much better, he denies much coughing and states he has not been SOB much today even with ambulation. Only complaint is feeling congestion in his nose and a sensation of post nasal drip which he notes irritates his throat and cough. No overnight events noted. Patient has some questions regarding his upcoming ablation. Objective Last 8 Hrs Date Time Temp Pulse Resp B/P (MAP) Pulse Ox O2 Delivery O2 Flow Rate FiO2 07/19/17 16:00 92 Nasal Cannula 3.0 07/19/17 15:38 74 07/19/17 14:14 77 18 92 Nasal Cannula 4.0 07/19/17 12:00 Nasal Cannula 3.0 07/19/17 12:00 36.6 93 18 121/82 (95) 90 Nasal Cannula 3.0 Physical Exam: GENERAL: Patient is in no acute distress. HEENT: No acute trauma, normocephalic, mucous membranes moist, no nasal congestion, no scleral icterus. Conjunctivae clear. NECK: No stridor, trachea is midline. LUNGS: Expiratory wheezes bilaterally, breath sounds equal. No rales. HEART: Without murmurs gallops or rubs, irregular ABDOMEN: Soft, nontender, bowel sounds positive, no hepatosplenomegaly EXTREMITIES: No cyanosis or edema NEUROLOGIC: Oriented x 3, no acute motor or sensory deficits, no focal weakness. SKIN: No rash, no jaundice, no diaphoresis. Assessment & Plan ACUTE ON CHRONIC HYPOXIC RESPIRATORY FAILURE: -likely secondary to bronchiectasis exacerbation and/or asthma exacerbation -presented with increasing shortness of breath for 1 week, was placed on Levaquin as outpatient on 07/11; no improvement thus came to the ER for SOB and was found to be hypoxic in the 80s on 2L, was requiring 5-6L via NC until today , now on 3L -no infiltrate on CXR -was placed on Levaquin due to history of growing Stenotrophomonas (as outpatient, this was continued for the remainder of the 7 day course) and completed -patient is typically on azithromycin suppression therapy 3x week however currently being held while on Levaquin; can resume now that levaquin is completed -IV steroids, scheduled and PRN nebs; steroids to be weaned as per Pulm recs; switched to PO prednisone -continue Symbicort -flutter valve encouraged -Pulmonary consulted, appreciate recommendations, have also suggested percussive vest therapy; have also added -PRN cough suppressant -also on mucinex ATRIAL FIBRILLATION, HX TACHYBRADY S/P PACEMAKER -rate controlled -continue on Verapamil and digoxin -not anticoagulated due to bleeding complications and hematomas in the past -is scheduled for an ablation upcoming HX Of TIA: -continue on Plavix (asa allergy) CKD STAGE III: -baseline cr is usually low 1's -at baseline (1.3) -monitor -avoid nephrotoxic agents when able BPH: -continue finasteride Current Inpatient Medications: Current Inpatient Medications Medications (Trade) Dose Ordered Sig/Akash Route Start Time Stop Time Status Last Admin Dose Admin Enoxaparin Sodium (Lovenox Inj) 40 mg HS SC 07/16/17 21:00 08/15/17 20:59 07/18/17 21:23 40 MG Acetaminophen (Tylenol Tab) 650 mg Q4H PRN PO 07/16/17 15:15 08/15/17 15:14 07/17/17 01:38 650 MG Ondansetron HCl (Zofran Inj) 4 mg Q6H PRN IV 07/16/17 15:15 08/15/17 15:14 Levalbuterol (Xopenex 1.25MG/ 0.5ML Neb) 1.25 mg Q6R INH 07/16/17 21:00 08/15/17 20:59 07/19/17 14:13 1.25 MG Ipratropium [place] (Atrovent 0.02% 0.5MG/2.5ML Neb) 0.5 mg Q6R INH 07/16/17 21:00 08/15/17 20:59 07/19/17 14:13 0.5 MG Clopidogrel Bisulfate (plAVix TAB) 75 mg DAILY PO 07/17/17 09:00 08/16/17 08:59 07/19/17 07:41 75 MG Digoxin (Lanoxin Tab) 0.125 mg DAILY@1600 PO 07/17/17 16:00 08/16/17 15:59 07/19/17 15:38 0.125 MG Finasteride (Proscar Tab) 5 mg DAILY PO 07/17/17 09:00 08/16/17 08:59 07/19/17 07:42 5 MG Loratadine (Claritin Tab) 10 mg DAILY PO 07/17/17 09:00 08/16/17 08:59 07/19/17 07:41 10 MG Montelukast Sodium (Singulair Tab) 10 mg QPM PO 07/16/17 21:00 08/15/17 20:59 07/18/17 21:23 10 MG Multivitamins (Multivitamin Tab) 1 tab DAILY PO 07/17/17 09:00 08/16/17 08:59 07/19/17 07:41 1 TAB Terazosin HCl (Hytrin Cap) 2 mg HS PO 07/16/17 21:00 08/15/17 20:59 07/18/17 21:22 2 MG Verapamil HCl (Calan-Sr Tab) 240 mg DAILY PO 07/17/17 09:00 08/16/17 08:59 07/19/17 07:43 240 MG Calcium/Vitamin D (Caltrate Plus Tab) 1 tab BID PO 07/16/17 21:00 08/15/17 20:59 07/19/17 07:39 1 TAB Pantoprazole Sodium (Protonix Tab) 40 mg BID PO 07/16/17 21:00 08/15/17 20:59 07/19/17 07:41 40 MG Budesonide/ Formoterol Fumarate (Symbicort 80/ 4.5 Inh) 2 puffs BID INH 07/16/17 21:00 08/15/17 20:59 07/19/17 07:43 2 PUFFS Guaifenesin (Mucinex Contr Rel Tab) 600 mg Q12 PO 07/16/17 17:00 08/15/17 16:59 07/19/17 07:40 600 MG Potassium Chloride (Klor-Con M10) 10 meq DAILY PO 07/17/17 09:00 08/16/17 08:59 07/19/17 07:42 10 MEQ Menthol (Nice Leonardo) 1 leonardo PRN PRN PO 07/17/17 18:00 08/16/17 17:59 07/17/17 18:14 1 LEONADRO Benzonatate (Tessalon Perles Cap) 100 mg Q6 PRN PO 07/17/17 19:00 08/16/17 18:59 07/19/17 07:41 100 MG Lorazepam (Ativan Tab) 0.5 mg HSZ PRN PO 07/17/17 19:00 08/16/17 18:59 07/17/17 19:16 0.5 MG Prednisone (PredniSONE TAB) 50 mg DAILY PO 07/20/17 09:00 08/19/17 08:59 Nystatin (Mycostatin Susp) 5 ml QID PO 07/19/17 13:00 07/29/17 12:59 07/19/17 17:43 5 ML Fluticasone Propionate (Flonase Nasal [place]) 2 sprays DAILY NA 07/20/17 09:00 08/19/17 08:59 Sodium Chloride ([place] Nasal [place]) 2 sprays 4XDQ4H PRN NA 07/19/17 13:45 08/18/17 13:44
[2017-07-19] MEDS: MONTELUKAST SOD 10 MG TAB PO SCH (21:13)
[2017-07-19] MEDS: ENOXAPARIN 40 MG/0.4 ML SYR SC SCH (21:14)
[2017-07-20] MEDS: ACETAMINOPHEN 325 MG TAB PO PRN (01:50)
[2017-07-20] MEDS: LORAZEPAM 0.5 MG TAB PO PRN (01:51)
[2017-07-20 02:20] VITALS: PULSE 95; O2SAT 92
[2017-07-20] MEDS: LEVALBUTEROL 1.25MG/0.5ML NEB INH SCH ×2 (02:20→07:02)
[2017-07-20] MEDS: IPRATROPIUM BROMIDE NEB SOLN 0.02% 2.5 ML VIAL INH SCH ×2 (02:20→07:02)
[2017-07-20 03:07] VITALS: BP 115/68; PULSE 85; TEMP 36.5; O2SAT 91
[2017-07-20 06:42] LABS: HEMATOCRIT 38.7 % (42-52); MEAN CELL VOLUME 90.6 fL (80-100); MEAN CORPUSCULAR HEMOGLOBIN 30.9 pg (25-34); MEAN CORPUSCULAR HGB CONC 34.1 g/dl (32-36); MEAN PLATELET VOLUME 9.1 fL (7.4-10.4); PLATELET COUNT 171 K/uL (130-400); RED BLOOD COUNT 4.27 M/uL (4.7-6.1); WHITE BLOOD COUNT 11.25 K/uL (4.8-10.8)
[2017-07-20 07:02] VITALS: PULSE 95; O2SAT 91
[2017-07-20 07:21] LABS: BUN/CREATININE RATIO 28.4 (10-20); CALCIUM 8.4 mg/dl (8.5-10.1); CREATININE 1.14 mg/dl (0.60-1.40); POTASSIUM 3.7 mmol/L (3.5-5.1)
[2017-07-20 07:36] VITALS: BP 127/78; PULSE 92; TEMP 36.3; O2SAT 91
[2017-07-20] MEDS: BUDESONIDE/FORMOTEROL FUMARATE 80/4.5 60 PUFFS/INHALER INH SCH (08:21)
[2017-07-20] MEDS: FINASTERIDE 5 MG TAB PO SCH (08:21)
[2017-07-20] MEDS: CLOPIDOGREL BISULFATE 75 MG TAB PO SCH (08:22)
[2017-07-20] MEDS: LORATADINE 10 MG TAB PO SCH (08:22)
[2017-07-20] MEDS: CALCIUM 600MG + VIT D 400 IU TAB PO SCH (08:22)
[2017-07-20] MEDS: NYSTATIN SUSP 500,000 U/5 ML UDC PO SCH ×2 (08:22→13:00)
[2017-07-20] MEDS: POTASSIUM CHLORIDE 10 MEQ TABCR PO SCH (08:22)
[2017-07-20] MEDS: GUAIFENESIN 600 MG TABCR PO SCH (08:22)
[2017-07-20] MEDS: VERAPAMIL HCL 240 MG TABCR PO SCH (08:22)
[2017-07-20] MEDS: MULTIVITAMIN TAB PO SCH (08:25)
[2017-07-20] MEDS: PANTOprazole SOD 40 MG TAB PO SCH (08:26)
[2017-07-20] MEDS ORDERED: NYSS5 PO (08:59)
[2017-07-20] MEDS ORDERED: PRED10TA PO (08:59)
[2017-07-20] MEDS ORDERED: BENZ100C7 PO (08:59)
[2017-07-20] MEDS ORDERED: FLUTICASONE PROPIONATE NA SPR 16 GM BTL SCH (09:00)
--- NOTE | 2017-07-20 09:00 | Discharge Instructions ---
Discharge Instructions Date of Service Jul 20, 2017. Admission Reason for Admission: Hypoxia Discharge Discharge Diagnosis / Problem: Hypoxia Discharge Goals Goal(s): Therapeutic intervention Activity Recommendations Activity Limitations: resume your previous activity . Instructions / Follow-Up Instructions / Follow-Up Please follow up with Pulmonology this week, please call to make an appointment. Please see Dr. Banda on , at 1 PM for hospital follow up as well. Please use nebulizer treatments every 4-6 hours and continue with using your percussion vest Current Hospital Diet Patient's current hospital diet: AHA Diet (Heart Healthy) Discharge Diet Recommended Diet: AHA Diet (Heart Healthy) Pending Studies Studies pending at discharge: no Laboratory Results Lipid Panel Test 06/03/17 07:48 Range/Units Triglycerides Level 68 0-150 mg/dl Cholesterol Level 133 0-200 mg/dl HDL Cholesterol 46 mg/dl Cholesterol/HDL Ratio 2.9 LDL Cholesterol, Calculated 73 mg/dl Medical Emergencies . Who to Call and When: Medical Emergencies: If at any time you feel your situation is an emergency, please call 911 immediately. . Non-Emergent Contact Non-Emergency issues call your: Primary Care Provider, Sql Engineer . . "Provider Documentation" section prepared by Kath Evans. . VTE Core Measure Inpt VTE Proph given/why not?: Enoxaparin (Lovenox)SQ
[2017-07-20 12:28] VITALS: BP 139/87; PULSE 98; TEMP 36.8; O2SAT 90
[2017-07-20 12:42] VITALS: BP 139/87; PULSE 98; TEMP 36.8; O2SAT 90
== END 2017-07-20 13:22 | disposition home or self-care (01) | DRG 189 ==
LOC: EDBD 11:58 → C.EDC 11:59 → C.2T 13:59 → ENRESERV 14:49 → C.2T 07-17 22:41
PROVIDERS: ADMIT Family Medicine; ATTEND Internal Medicine
DX: J96.21 Acute and chronic respiratory failure with hypoxia (principal); J45.41 Moderate persistent asthma with (acute) exacerbation; J47.1 Bronchiectasis with (acute) exacerbation; I48.1 Persistent atrial fibrillation; J01.90 Acute sinusitis, unspecified; N40.0 Benign prostatic hyperplasia without lower urinary tract symptoms; N18.3 Chronic kidney disease, stage 3 (moderate); K21.9 Gastro-esophageal reflux disease without esophagitis; Z51.81 Encounter for therapeutic drug level monitoring; Z79.899 Other long term (current) drug therapy; Z79.02 Long term (current) use of antithrombotics/antiplatelets; Z99.81 Dependence on supplemental oxygen; Z86.19 Personal history of other infectious and parasitic diseases; Z86.73 Personal history of transient ischemic attack (TIA), and cerebral infarction without residual deficits; Z95.0 Presence of cardiac pacemaker; Z82.5 Family history of asthma and other chronic lower respiratory diseases; Z82.0 Family history of epilepsy and other diseases of the nervous system

== ENCOUNTER 2017-07-23 08:39 | Observation (INO) | payer OTHER, BC ==
[2017-07-22 15:17] VITALS: BMI 25.0
[~2017-07-23] VITALS: Ht 195.6 cm; Wt 90.6 kg
[~2017-07-23 08:39] MED LIST changes: -ALUMSUS21 PO; -BENZ100C7 PO; -BISA-16 PO; -DXY100 PO; +LACTATED RINGER'S 1000ML 1,000 ML IV SCH; -LCTX PO; -LEVA45AE INH; -POLY335019 PO; -POTA10CA28 PO; +POTA1CAP2 PO; +PROPOFOL IV EMULSION 10 MG/ML 100 ML VIAL IV ONE; +SYMIN/8045 INH; -SYMIN160 INH; -VERA180C3 PO; +VERA240T20 PO
[2017-07-23] MEDS ORDERED: PROPOFOL IV EMULSION 10 MG/ML 20 ML VIAL IV ONE (09:15)
[2017-07-23] MEDS ORDERED: LIDOCAINE HCL 2% 2 ML VIAL (20MG/ML) ONE (09:15)
[2017-07-23] MEDS ORDERED: IPRATROPIUM BROMIDE NEB SOLN 0.02% 2.5 ML VIAL INH ONE (09:15)
[2017-07-23] MEDS ORDERED: MIDAZOLAM HCL 1 MG/ML 2ML VIAL ONE (09:15)
[2017-07-23] MEDS ORDERED: FENTANYL CITRATE INJ 50 MCG/1 ML 2 ML VIAL ONE (09:15)
[2017-07-23 09:25] VITALS: BP 142/85; PULSE 81; TEMP 36.7; O2SAT 92; BMI 25.0
[2017-07-23 09:30] VITALS: PULSE 83; O2SAT 93
[2017-07-23] MEDS ORDERED: ATROPINE SULFATE 0.1 MG/ML 5ML SYR IV PRN (09:30)
[2017-07-23] MEDS ORDERED: ONDANSETRON INJ 2 MG/ML 2 ML VIAL IV PRN (09:30)
[2017-07-23] MEDS ORDERED: FENTANYL CITRATE INJ 50 MCG/1 ML 2 ML VIAL IV PRN (09:30)
[2017-07-23] MEDS ORDERED: EpHEDrine SULFATE INJ 50 MG/ML AMP IV PRN (09:30)
[2017-07-23] MEDS ORDERED: ALBUTEROL 0.083% NEBU SOLN 3 ML VIAL INH PRN (09:30)
--- NOTE | 2017-07-23 09:34 | DIAGNOSTIC IMAGING REPORT ---
CHEST ONE VIEW PORTABLE CLINICAL HISTORY: PREOPERATIVE EXAM COMPARISON STUDY: 07/16/2017 FINDINGS: The cardiac and mediastinal contours remain stable. There is a left subclavian dual-chamber central venous pacemaker. Surgical clips project in the right axillary region. There is diffuse interstitial thickening. There is no focal pulmonary consolidation. No pleural effusions are visualized.[ IMPRESSION: Chronic interstitial thickening, unchanged from prior studies. No acute parenchymal consolidation Electronically signed by: Myles Carbone M.D. 07/23/2017 9:33 AM Dictated Date/Time: 07/23/2017 9:32 AM
--- NOTE | 2017-07-23 09:45 | History and Physical ---
History & Physical Date Jul 23, 2017. 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 (15) Transient ischemic attack Surgical Problems: (1) H/O nasal polypectomy (2) S/P cholecystectomy (3) Status post surgical removal of malignant neoplasm of skin Additional History Hepatic Disease: No Endocrine Disorder: No Kidney Disease: Yes Hypertension: Yes Heart Disease: Yes Bleeding Tendencies: Yes Infectious Diseases: No Other: copd Allergies Coded Allergies: Aspirin (Verified Allergy, Severe, TIGHTNESS IN CHEST, 07/23/17) NSAIDs (Verified Allergy, Severe, TIGHTNESS IN THE CHEST, 07/23/17) Rofecoxib (Verified Allergy, Severe, TIGHTNESS IN CHEST, 07/23/17) Ibuprofen (Verified Allergy, Intermediate, Asthma Symptoms, 07/23/17) Home Medications Scheduled Azelastine Hcl (Astelin Nasal [place]), 2 SPRAYS NA BID Budesonide/Formoterol Fumarate (Symbicort 80/4.5 Inhaler), 2 PUFFS INH BID Calcium Carbonate-Vitamin D (Calcium 600 + D), 1 TAB PO BID Clopidogrel (Plavix), 75 MG PO DAILY Digoxin (Digox), 125 MCG PO DAILY Finasteride (Proscar), 5 MG PO DAILY Flunisolide (Nasal) (Flunisolide), 2 SPRY MARVIN BID Guaifenesin [place] (Guaifenesin Er), 600 MG PO Q12H Home O2 Therapy (Oxygen), 2 LITERS NA hs with cpap Loratadine (Claritin), 10 MG PO DAILY Misc Natural Products (Osteo Bi-Flex Advanced Tr), 1 TAB PO BID Montelukast Sodium (Singulair), 10 MG PO QPM Multivitamin (Multivitamin), 1 TAB PO DAILY Pantoprazole (Protonix), 20 MG PO BID Potassium Chloride (Potassium Chloride Er), 1 CAP PO DAILY Terazosin Hcl (Hytrin), 2 MG PO HS Verapamil Sust Rel (Calan Sr Ext Rel), 240 MG PO DAILY Scheduled PRN Ipratropium [place] (Atrovent 0.02% Soln), 2.5 ML NEB QID PRN for Wheezing Levalbuterol Hcl (Levalbuterol), 1 VIAL NEB QID PRN for cough/sob/wheezing Physical Examination Skin: warm/dry Eyes: normal inspection, EOMI Head: normocephalic, atraumatic Neck: supple Respiratory/Chest: lungs clear, normal breath sounds Cardiovascular: no edema, + systolic murmur, + irregularly irregular Abdomen / GI: normal bowel sounds, non tender Extremities: normal inspection Neurologic/Psych: alert, oriented x 3 Diagnosis 1. AF with RVR despited AVN blockers 2. TBS s/p ppm in past 3. HTN 4. Chronic diastolic HF, NYHA Class III 5. Chronic bronchiectasis and asthma 6. h/o multiple recurrent bleeding and hematomas ASA Classification: ASA Class II Plan of Treatment Recommend AVN ablation due to persistent to permanent AF with RVR and causing acute HF. Explained the risks and the procedure to the patient with the risks not limited to , arrhythmia, stroke, heart attach, bleeding, infection, lead dislodgement. Pt expressed an understanding and agreed to proceed.
[2017-07-23] MEDS ORDERED: PHENYLEPHRINE 100MCG/ML 5ML SYR ONE ×2 (10:57→11:32)
[2017-07-23] MEDS ORDERED: EpHEDrine SULFATE 50MG/5ML SYR ONE ×2 (10:57→11:56)
[2017-07-23] MEDS ORDERED: ACETAMINOPHEN 325 MG TAB PO PRN (13:30)
--- NOTE | 2017-07-23 13:33 | Discharge Instructions ---
Discharge Instructions Date of Service Jul 23, 2017. Admission Reason for Admission: A-FIB Discharge Discharge Diagnosis / Problem: Atrial fibrillation Discharge Goals Goal(s): Improve function Activity Recommendations Activity Limitations: as noted below Lifting Limitations: no more than 10 pounds (no heavy lifting or squating for 1 week) Shower/Bathe: tomorrow Driving or Machine Use: resume 1 day after discharge . Instructions / Follow-Up Instructions / Follow-Up ACTIVITY RECOMMENDATIONS: It is common to feel weak and fatigue for a few days. * Do not drive or operate any motorized equipment for the next 1 day. * Limit stair usage (2 or 3 trips a day only) for the next three days. * Do not lift anything heavier than 10 pounds for the next 7 days. * Do not engage in vigorous exercise or any sports for the next five days. * You may shower the day after your procedure, but do not immerse the area for three days. Cleanse the site gently with soap and water. SPECIAL CARE INSTRUCTIONS: * You may replace the pressure dressing or band-aid the morning after the procedure. * After your procedure, it is normal to have a small bruise or small lump at the site. Examine your site daily for any change in the bruise or lump, redness, swelling, drainage or numbness. Notify your doctor if any change. BLEEDING: * If there is a small amount of bleeding at the site, lie down and apply firm pressure with a clean cloth for ten minutes. When the bleeding stops, lie quietly keeping the procedure limb straight for six hours. Notify your doctor as soon as possible. * If the bleeding does not stop after ten minutes or if there is a large amount of bleeding or spurting, call 911 immediately. Continue to lie down and hold firm pressure until help arrives. SKIN IRRITATION: * You may experience some redness and/or swelling in the area where radiation was administered. If any skin irritation occurs, please contact your family physician. FOLLOW UP VISIT: Keep any scheduled doctor appointments. Current Hospital Diet Patient's current hospital diet: AHA Diet (Heart Healthy), Low Sodium Diet (2gm Na) Discharge Diet Recommended Diet: AHA Diet (Heart Healthy), Low Sodium Diet (2gm Na) Procedures Procedures Performed: unsuccessful AVN ablation Pending Studies Studies pending at discharge: no Laboratory Results Lipid Panel Test 06/03/17 07:48 Range/Units Triglycerides Level 68 0-150 mg/dl Cholesterol Level 133 0-200 mg/dl HDL Cholesterol 46 mg/dl Cholesterol/HDL Ratio 2.9 LDL Cholesterol, Calculated 73 mg/dl Medical Emergencies . Who to Call and When: Medical Emergencies: If at any time you feel your situation is an emergency, please call 911 immediately. . Non-Emergent Contact Non-Emergency issues call your: Bag Presser . . "Provider Documentation" section prepared by Tabatha Adams. . VTE Core Measure Inpt VTE Proph given/why not?: Treatment not tolerated
--- NOTE | 2017-07-23 13:38 | Anesthesiology Progress Note ---
Anesthesia Post Op Note Date & Time Jul 23, 2017 at 13:38 Vital Signs Pain Intensity: 0 Vital Signs Past 12 Hours Date Time Temp Pulse Resp B/P (MAP) Pulse Ox O2 Delivery O2 Flow Rate FiO2 07/23/17 13:30 82 18 107/72 (84) 94 Nasal Cannula 3 07/23/17 09:30 83 16 93 Room Air 07/23/17 09:25 36.7 81 20 142/85 (104) 92 Room Air Notes Mental Status: alert / awake / arousable, participated in evaluation Pt Amnestic to Procedure: Yes Nausea / Vomiting: adequately controlled Pain: adequately controlled Airway Patency, RR, SpO2: stable & adequate BP & HR: stable & adequate Hydration State: stable & adequate Anesthetic Complications: no major complications apparent
--- NOTE | 2017-07-23 13:38 | Discharge Summary ---
Discharge Summary Date of Service Jul 23, 2017. 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 Secondary Diagnoses/Problems: TBS h/o ppm Chronic diastolic HF, NYHA Class III Chronic bronchiectasis Asthma Procedures: unsuccessful AVN ablation and pacemaker interrogation Medication Reconciliation Continued Medications: Azelastine Hcl (Astelin Nasal [place]) 200 Sprays/30 Ml [place] 2 SPRAYS NA BID, BTL Budesonide/Formoterol Fumarate (Symbicort 80/4.5 Inhaler) 120 Puffs/ Aero 2 PUFFS INH BID, #10.2 GM 5 Refills Calcium Carbonate-Vitamin D (Calcium 600 + D) 1 Tab Tab 1 TAB PO BID Clopidogrel (Plavix) 75 Mg Tab 75 MG PO DAILY, TAB Digoxin (Digox) 125 Mcg Tab 125 MCG PO DAILY Finasteride (Proscar) 5 Mg Tab 5 MG PO DAILY, TAB Flunisolide (Nasal) (Flunisolide) 0.025 % Spr 2 SPRY MARVIN BID, #25 ML 3 Refills Guaifenesin La (Guaifenesin Er) 600 Mg Tabcr 600 MG PO Q12H, TAB Home O2 Therapy (Oxygen) Gas 2 LITERS NA hs with cpap Ipratropium [place] (Atrovent 0.02% Soln) 2.5 Ml Nebu 2.5 ML NEB QID PRN for Wheezing Levalbuterol Hcl (Levalbuterol) 1.25 Mg/0.5 Ml Neb 1 VIAL NEB QID PRN for cough/sob/wheezing Loratadine (Claritin) 10 Mg Tab 10 MG PO DAILY Misc Natural Products (Osteo Bi-Flex Advanced Tr) 1 Tab Tab 1 TAB PO BID Montelukast Sodium (Singulair) 10 Mg Tab 10 MG PO QPM Multivitamin (Multivitamin) Tab 1 TAB PO DAILY, TAB Pantoprazole (Protonix) 20 Mg Tab 20 MG PO BID Potassium Chloride (Potassium Chloride Er) 10 Meq Cap 1 CAP PO DAILY for 90 Days, #90 CAP 1 Refill Terazosin Hcl (Hytrin) 2 Mg Cap 2 MG PO HS, CAP Verapamil Sust Rel (Calan Sr Ext Rel) 240 Mg Tabcr 240 MG PO DAILY, TAB Admission Information Physical Exam (per Admitting): aaox3, NAD Supple, No JVD Irregular/irregular S1/S2, +systolic murmur + rhonchi b/l soft No edema b/l LE no focal deficits skin intact Hospital Course Pt admitted for elective AV caity ablation due to persistent AF with RVR despite AVN blockers. Pt underwent procedure without any complications however procedure was unsuccessful. Pt monitored overnight and discharged home. Total time spent on discharge = 30 minutes This includes examination of the patient, discharge planning, medication reconciliation, and communication with other providers. Discharge Instructions ACTIVITY RECOMMENDATIONS: It is common to feel weak and fatigue for a few days. * Do not drive or operate any motorized equipment for the next 1 day. * Limit stair usage (2 or 3 trips a day only) for the next three days. * Do not lift anything heavier than 10 pounds for the next 7 days. * Do not engage in vigorous exercise or any sports for the next five days. * You may shower the day after your procedure, but do not immerse the area for three days. Cleanse the site gently with soap and water. SPECIAL CARE INSTRUCTIONS: * You may replace the pressure dressing or band-aid the morning after the procedure. * After your procedure, it is normal to have a small bruise or small lump at the site. Examine your site daily for any change in the bruise or lump, redness, swelling, drainage or numbness. Notify your doctor if any change. BLEEDING: * If there is a small amount of bleeding at the site, lie down and apply firm pressure with a clean cloth for ten minutes. When the bleeding stops, lie quietly keeping the procedure limb straight for six hours. Notify your doctor as soon as possible. * If the bleeding does not stop after ten minutes or if there is a large amount of bleeding or spurting, call 911 immediately. Continue to lie down and hold firm pressure until help arrives. SKIN IRRITATION: * You may experience some redness and/or swelling in the area where radiation was administered. If any skin irritation occurs, please contact your family physician. FOLLOW UP VISIT: Keep any scheduled doctor appointments.
--- NOTE | 2017-07-23 13:39 | [facility] Post Operative Brief Note ---
Immediate Operative Summary Operative Date Jul 23, 2017. Pre-Operative Diagnosis permanent AF with RVR Post-Operative Diagnosis same Procedure(s) Performed unsuccessful AVN ablation and pacemaker interrogation Surgeon chacha aponte Tanning Wheel Operator Surgeon(s) Dr. Sandra Estimated Blood Loss <5cc Findings see official report Fluids (cc crystalloids) 250cc Specimens none Anesthesia 2mg versed, 100mcg fentatnyl, 880mg propofol Complication(s) None Disposition PCU
[2017-07-23] MEDS ORDERED: IV FLUIDS COMPLETED PRN (14:00)
[2017-07-23 14:07] VITALS: BP 121/80; PULSE 83; TEMP 36.8; O2SAT 92; Ht 195.6 cm; Wt 90.6 kg
[2017-07-23 15:24] VITALS: BP 121/75; PULSE 87; TEMP 36.4; O2SAT 96
[2017-07-23] MEDS ORDERED: COUGH DROP (SUGAR FREE) LOZ 24 LOZ/1 BOX ONE (17:24)
[2017-07-23 19:31] VITALS: BP 113/77; PULSE 89; TEMP 36.4; O2SAT 94
[2017-07-23] MEDS: BUDESONIDE/FORMOTEROL FUMARATE 80/4.5 60 PUFFS/INHALER INH SCH (20:47)
[2017-07-23] MEDS: GUAIFENESIN 600 MG TABCR PO SCH (20:48)
[2017-07-23] MEDS ORDERED: MONTELUKAST SOD 10 MG TAB PO SCH (21:00)
[2017-07-24 00:06] VITALS: BP 123/79; PULSE 81; TEMP 36.5; O2SAT 90
[2017-07-24 04:14] VITALS: BP 123/77; PULSE 86; TEMP 37; O2SAT 94
[2017-07-24 08:43] VITALS: BP 117/73; PULSE 84; TEMP 36.3; O2SAT 94
[2017-07-24 08:58] VITALS: BP 117/73; PULSE 84; TEMP 36.3; O2SAT 94
[2017-07-24] MEDS ORDERED: DIGOXIN 0.125 MG TAB PO SCH (09:00)
[2017-07-24] MEDS ORDERED: CLOPIDOGREL BISULFATE 75 MG TAB PO SCH (09:00)
[2017-07-24] MEDS ORDERED: MULTIVITAMIN TAB PO SCH (09:00)
[2017-07-24] MEDS ORDERED: LORATADINE 10 MG TAB PO SCH (09:00)
[2017-07-24] MEDS ORDERED: FINASTERIDE 5 MG TAB PO SCH (09:00)
[2017-07-24] MEDS ORDERED: VERAPAMIL HCL 240 MG TABCR PO SCH (09:00)
[2017-07-24] MEDS: GUAIFENESIN 600 MG TABCR PO SCH (09:03)
[2017-07-24] MEDS: BUDESONIDE/FORMOTEROL FUMARATE 80/4.5 60 PUFFS/INHALER INH SCH (09:08)
[2017-07-24 09:23] VITALS: O2SAT 90
--- NOTE | 2017-07-24 15:32 | Cardiology Follow-Up ---
Subjective Subjective Date of Service: Jul 24, 2017. Pt evaluation today including: conversation w/ patient, physical exam Pain: none Problem List Medical Problems: (1) Acute respiratory distress Status: Acute (2) Atrial fibrillation with RVR Status: Acute (3) Atrial fibrillation with RVR Status: Acute (4) Atrial flutter Status: Acute (5) Atrial tachycardia Status: Acute (6) Bilateral pneumonia Status: Acute (7) Bilateral pneumonia Status: Acute (8) Cellulitis Status: Acute (9) Chest pain radiating to upper extremity Status: Acute (10) Cough Status: Acute (11) Dizziness Status: Acute (12) Hematoma of left lower extremity Status: Acute (13) Hypoxia Status: Acute (14) Intractable pain Status: Acute (15) Intramuscular hematoma Status: Acute (16) Leg pain, right Status: Acute (17) Nausea vomiting and diarrhea Status: Acute (18) Palpitations Status: Acute (19) Reactive airway disease Status: Acute (20) Shortness of breath Status: Acute (21) Syncope Status: Acute (22) Viral upper respiratory illness Status: Acute Review of Systems Constitutional: + fatigue Respiratory: + wheezing, + shortness of breath Cardiac: No chest pain, No edema, No palpitations Abdomen: No vomiting, No diarrhea Objective Vital Signs Last Vital Signs Documentation Date Time Temp Pulse Resp B/P (MAP) Pulse Ox O2 Delivery O2 Flow Rate FiO2 07/24/17 10:27 Nasal Cannula 07/24/17 09:23 90 07/24/17 09:03 84 07/24/17 08:58 36.3 16 07/24/17 08:43 117/73 (88) 07/24/17 08:00 4.0 Physical Exam: General Appearance: no apparent distress Eyes: bilateral eyes PERRL, bilateral eyes EOMI Neck: supple, no JVD Respiratory/Chest: lungs clear, normal breath sounds Cardiovascular: no edema, no murmur, + irregularly irregular Abdomen: normal bowel sounds, soft Extremities: no pedal edema Neurologic/Psychiatric: alert, normal mood/affect Skin: normal color Assessment and Plan Impression: 1. Permanent atrial fibrillation with RVR despited AVN blockers; pt s/p unsuccessful AVN ablation 2. TBS s/p dual chamber ppm 2005 with gent change 2016 3. Chronic Bronchiectasis and asthmatic lung disease 4. H/o bleeding and hematomas no longer AC candidate Plan: -Ok to discharge home today -Continue home medications -F/u with Dr. Souza as scheduled next week Discharge planning: home Medications: Medications Administered Medications (Trade) Dose Ordered Sig/Akash Route Start Time Stop Time Status Last Admin Dose Admin Lactated Ringer's 1,000 ml @ 15 mls/hr Q24H IV 07/23/17 06:00 07/23/17 18:00 DC 07/23/17 09:23 15 MLS/HR Ipratropium [place] (Atrovent 0.02% 0.5MG/2.5ML Neb) 0.5 mg ONE ONCE INH 07/23/17 09:15 07/23/17 09:21 DC 07/23/17 09:30 0.5 MG Albuterol Sulfate (Ventolin 0.083% 2.5MG/3ML Neb) 2.5 mg ONE PRN INH 07/23/17 09:30 07/23/17 14:30 DC 07/23/17 09:30 2.5 MG Budesonide/ Formoterol Fumarate (Symbicort 80/ 4.5 Inh) 2 puffs BID INH 07/23/17 21:00 07/24/17 10:31 DC 07/24/17 09:08 2 PUFFS Clopidogrel Bisulfate (plAVix TAB) 75 mg DAILY PO 07/24/17 09:00 07/24/17 10:31 DC 07/24/17 09:08 75 MG Digoxin (Lanoxin Tab) 0.125 mg DAILY PO 07/24/17 09:00 07/24/17 10:31 DC 07/24/17 09:03 0.125 MG Finasteride (Proscar Tab) 5 mg DAILY PO 07/24/17 09:00 07/24/17 10:31 DC 07/24/17 09:06 5 MG Guaifenesin (Mucinex Contr Rel Tab) 600 mg Q12 PO 07/23/17 21:00 07/24/17 10:31 DC 07/24/17 09:03 600 MG Loratadine (Claritin Tab) 10 mg DAILY PO 07/24/17 09:00 07/24/17 10:31 DC 07/24/17 09:08 10 MG Montelukast Sodium (Singulair Tab) 10 mg QPM PO 07/23/17 21:00 11/16/17 10:31 DC 07/23/17 20:48 10 MG Multivitamins (Multivitamin Tab) 1 tab DAILY PO 07/24/17 09:00 07/24/17 10:31 DC 07/24/17 09:06 1 TAB Terazosin HCl (Hytrin Cap) 2 mg HS PO 07/23/17 21:00 07/24/17 10:31 DC 07/23/17 20:48 2 MG Verapamil HCl (Calan-Sr Tab) 240 mg DAILY PO 07/24/17 09:00 07/24/17 10:31 DC 07/24/17 09:08 240 MG Menthol (Nice Leonardo) 24 leonardo STK-MED ONCE .ROUTE 07/23/17 17:24 07/23/17 17:25 DC 07/23/17 18:11 24 LEONARDO Lab Results: Telemetry: AF 80-90s
--- NOTE | 2017-07-25 19:18 | OPERATIVE REPORT ---
DATE OF OPERATION: 07/23/2017 PREOPERATIVE DIAGNOSES: Persistent atrial fibrillation with rapid ventricular response despite AV caity blockers and acute systolic heart failure and tachybrady syndrome. POSTOPERATIVE DIAGNOSES: Persistent atrial fibrillation with rapid ventricular response despite AV caity blockers and acute systolic heart failure and tachybrady syndrome. PROCEDURE: Unsuccessful AV caity ablation, dual chamber pacemaker interrogation and reprogramming. SURGEON: Tabatha Adams DO. COLLET MAKING MACHINE OPERATOR: Valdemar Sandra MD. BLOOD LOSS: Less than 5 mL. COMPLICATIONS: None. CONDITION: Stable. ANESTHESIA: Monitored anesthetic care administered via anesthesiology. Total of 2 mg of Versed, 100 mcg of fentanyl, 880 mg of propofol, IV fluids 250 mL. URINE OUTPUT: Not applicable. SPECIMENS: None. FINDINGS: See below. DRAINS: None. INDICATIONS: This is an 86-year-old gentleman with past medical history for persistent atrial fibrillation probably becoming permanent with rapid ventricular response at times despite AV caity blockers as well as intermittent acute heart failure from the rapid ventricular diastolic heart failure. 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 He also has a history of severe asthma, bronchiectasis as well as not on anticoagulation due to bleeding and hematomas. Due to his persistent atrial fibrillation with rapid ventricular response and heart failure, he was recommended an AV caity ablation. CONSENT: Consent was obtained prior to the patient going into the electrophysiology lab. The patient was explained risks, benefits and alternatives to procedure. Risks include but not limited to sudden cardiac , cardiac arrhythmias, cerebrovascular accident, myocardial infarction, injury to the blood vessels, chamber of the heart, bleeding, infection or injury to the pacing leads or dislodgement. The patient understood these risks and agreed to the procedure as planned. Informed consent was obtained. DESCRIPTION OF THE PROCEDURE: The patient was brought into the electrophysiology lab in a fasting state. He was connected to continuous cardiac monitoring. A time-out was performed to ensure patient's identity and procedure correctly. The patient was prepped and draped over the bilateral groins in normal surgical standard fashion. Monitored conscious sedation was given throughout the procedure for patient's comfort level. [place] precautions were maintained throughout the procedure. A 10 mL of 1% lidocaine were given in the right femoral groin. Using the modified Seldinger technique, right femoral venous access was obtained. A guidewire was then inserted. Initially, a short 8-Swedish sheath was inserted and then the [place] [employer] Blazer 8 mm ablation catheter was placed up into the heart. I could not find the His and of note it looked like the right ventricular pacing lead was going to be right over the His bundle region that I needed. Using anatomical positioning under x-ray as well as anatomical EGM formation, we gave a series of radiofrequency zamorano at 70 correia. At time we got good temperature and impedance drops. Again; however, it was very close to the leads, I did not want to damage the lead at all but never got complete heart block. I then swapped out the catheter and used an SRO sheath along with the Biosense 8 mm DF curve ablation catheter and gave a series of zamorano along the septum without any success. I then had Dr. Sandra to come and see if he could have any success and at this juncture he tried for over an hour without any success not even any injury or slowing of the heart rate So, at this point, we deemed this procedures unsuccessful, the catheter was removed from the body and the sheath was pulled and manual compression was used to establish hemostasis. Dual chamber pacemaker interrogation before the procedure, the right atrium. P waves were 2 millivolts, impedance 568 ohms. Fib waves were 2 millivolts. No threshold testing as patient was in AFib. The right ventricular R waves are 5.6 millivolts, impedance 580 ohms, threshold 1.25 volts at 0.4 milliseconds and then the pacemaker was reprogrammed to VVI 30. After the ablation procedure, dual chamber pacemaker interrogation, the right atrial testing, Fib waves were 1 millivolt, impedance 552 ohms. Again, no threshold testing as patient was in AFib. Right ventricle R waves 5.6 millivolts, impedance 565 ohms, threshold 1 volt at 0.4 milliseconds. The device was reprogrammed back to DDR 60/130. IMPRESSION: 1. Unsuccessful atrioventricular caity ablation. 2. Normal pacemaker function. PLAN: Monitor patient overnight. He should continue his home medications, not to do any heavy lifting or squatting for 1 week and he will follow up in our [facility] office and Dr. Souza as scheduled in 2 weeks' time. I attest to the content of the Intraoperative Record and any orders documented therein. Any exceptions are noted below. RICHARD
== END 2017-07-24 10:30 | disposition home or self-care (01) ==
LOC: C.ACU 08:39 → ENRESERV 11:01 → C.2T 13:30
PROVIDERS: ADMIT Internal Medicine; ATTEND Internal Medicine
DX: I48.0 Paroxysmal atrial fibrillation (principal); I49.5 Sick sinus syndrome; M19.90 Unspecified osteoarthritis, unspecified site; J45.909 Unspecified asthma, uncomplicated; N40.0 Benign prostatic hyperplasia without lower urinary tract symptoms; G47.33 Obstructive sleep apnea (adult) (pediatric); N18.9 Chronic kidney disease, unspecified; I12.9 Hypertensive chronic kidney disease with stage 1 through stage 4 chronic kidney disease, or unspecified chronic kidney disease; M35.3 Polymyalgia rheumatica; K21.9 Gastro-esophageal reflux disease without esophagitis; K44.9 Diaphragmatic hernia without obstruction or gangrene; Z95.0 Presence of cardiac pacemaker; Z86.73 Personal history of transient ischemic attack (TIA), and cerebral infarction without residual deficits; Z90.49 Acquired absence of other specified parts of digestive tract; Z85.820 Personal history of malignant melanoma of skin; Z92.241 Personal history of systemic steroid therapy

== ENCOUNTER → 2017-08-06 | Outpatient (CLI) | payer OTHER, BC ==
[~2017-08-06] MED LIST changes: -LACTATED RINGER'S 1000ML 1,000 ML IV SCH; -PROPOFOL IV EMULSION 10 MG/ML 100 ML VIAL IV ONE
[2017-08-11 16:35] LABS: ASPERGILLUS FLAVUS Negative (Negative); ASPERGILLUS FUMIGATUS Negative (Negative); ASPERGILLUS NIGER Negative (Negative); IMMUNOGLOBULIN E TC 24620E 57 KU/L (<115)
== END | disposition home or self-care (01) ==
LOC: C.LAB1850 14:11
PROVIDERS: ATTEND Internal Medicine Pulmonary Disease
DX: R05 Cough (principal)

== ENCOUNTER 2018-03-29 10:18 | Inpatient (IN) | payer OTHER, BC ==
[~2018-03-29] VITALS: Ht 195.6 cm; Wt 96.8 kg
[~2018-03-29 10:18] MED LIST changes: -ATRINSX NEB; -CALC-20 PO; -CLOP1TAB15 PO; -CLR10 PO; -DIGO0.1219 PO; -FINA5TAB PO; -LEVA1.255 NEB; -MISCTAB29 PO; -MONT1TAB3 PO; -SYMIN/8045 INH; -VERA240T20 PO
[2018-03-29] MEDS ORDERED: MONT1TAB3 PO (10:37)
[2018-03-29] MEDS ORDERED: MISCTAB29 PO (10:40)
[2018-03-29] MEDS ORDERED: CALC-20 PO (10:40)
[2018-03-29 11:28] LABS: BASO % 0.2 %; BASO ABS # 0.02 K/uL (0-0.2); EOS % 3.7 %; EOS ABS # 0.36 K/uL (0-0.5); HEMATOCRIT 38.1 % (42-52); HEMOGLOBIN 12.8 g/dL (14.0-18.0); IG# 0.02 K/uL (0.00-0.02); LYMPH % 17.4 %; LYMPH ABS # 1.72 K/uL (1.2-3.4); MEAN CELL VOLUME 91.1 fL (80-100); MEAN CORPUSCULAR HEMOGLOBIN 30.6 pg (25-34); MEAN CORPUSCULAR HGB CONC 33.6 g/dl (32-36); MEAN PLATELET VOLUME 9.5 fL (7.4-10.4); MONO % 11.6 %; MONO ABS # 1.14 K/uL (0.11-0.59); NEUT % 66.9 %; PLATELET COUNT 209 K/uL (130-400); RED CELL DISTRIBUTION WIDTH CV 13.5 % (11.5-14.5); RED CELL DISTRIBUTION WIDTH SD 44.7 fL (36.4-46.3); WHITE BLOOD COUNT 9.86 K/uL (4.8-10.8)
[2018-03-29 11:33] LABS: ISTAT CREATININE 1.3 mg/dl (0.6-1.3); ISTAT IONIZED CALCIUM 1.11 mmol/l (1.12-1.32); ISTAT POTASSIUM 4.5 mEq/L (3.3-5.0)
[2018-03-29 11:47] LABS: INR 1.1 (0.9-1.1)
[2018-03-29 11:50] LABS: INFLUENZA B ANTIGEN Neg for Influ B (NEG)
[2018-03-29 11:51] LABS: ALBUMIN 3.2 gm/dl (3.4-5.0); ALKALINE PHOSPHATASE 75 U/L (45-117); ALT/SGPT 23 U/L (12-78); AST/SGOT 20 U/L (15-37); BLOOD UREA NITROGEN 26 mg/dl (7-18); CALCIUM 8.7 mg/dl (8.5-10.1); CARBON DIOXIDE 25 mmol/L (21-32); CKMB 3.3 ng/ml (0.5-3.6); CREATININE 1.33 mg/dl (0.60-1.40); GLUCOSE 83 mg/dl (70-99); POTASSIUM 3.8 mmol/L (3.5-5.1); SODIUM 140 mmol/L (136-145); TOTAL PROTEIN 6.9 gm/dl (6.4-8.2)
--- NOTE | 2018-03-29 11:52 | DIAGNOSTIC IMAGING REPORT ---
CHEST 2 VIEWS ROUTINE HISTORY: 87 years-old Male cough and fever acute cough and fever COMPARISON: Chest radiograph 07/23/2017, CTA chest 06/03/2017 TECHNIQUE: PA and lateral views of the chest FINDINGS: Cardiac silhouette is mildly enlarged, unchanged. Atherosclerosis of the aorta. Left subclavian pacer noted. No pneumothorax or pleural effusion. Chronic bilateral reticular opacities noted with hyperinflation. Mild pulmonary vascular congestion with progressively worsened bilateral interstitial opacities. Biapical pleural-parenchymal scarring/pleural thickening. Surgical clips project over the right axillary region. Degenerative changes of the shoulders and spine. IMPRESSION: 1. Hyperinflation with chronic reticular opacities. Interstitial opacities have mildly progressed from comparison suggesting mild pulmonary edema or progressive scarring with interstitial pneumonia thought to be less likely. 2. Cardiomegaly with pulmonary vascular congestion. The above report was generated using voice recognition software. It may contain grammatical, syntax or spelling errors. Electronically signed by: John Fernandes M.D. 03/29/2018 11:50 AM Dictated Date/Time: 03/29/2018 11:46 AM
[2018-03-29] MEDS ORDERED: POLY335019 PO (13:01)
[2018-03-29] MEDS ORDERED: SOFT1SOL45 NEB (13:01)
[2018-03-29] MEDS ORDERED: PANT1TAB3 PO (13:01)
[2018-03-29] MEDS ORDERED: FLUT50SP45 NAE (13:01)
[2018-03-29] MEDS ORDERED: POTA1TAB97 PO (13:01)
[2018-03-29] MEDS ORDERED: OPTIRAY 320 IV PRN (13:30)
[2018-03-29] MEDS ORDERED: CLOP1TAB15 PO (13:51)
[2018-03-29] MEDS ORDERED: LEVAQUIN 750MG / 150ML D5W IV STA (14:39)
--- NOTE | 2018-03-29 14:59 | DIAGNOSTIC IMAGING REPORT ---
(CHEST FOR PE) ANGIO WITH CT DOSE: 523.51 mGy.cm HISTORY: 87 years-old Male with presents with acute cough and fever. TECHNIQUE: Multiple CTA images of the chest were obtained after the intravenous administration of 94 ml Optiray 320. Coronal and sagittal MIPS were obtained from the axial data set and were submitted for review. A dose lowering technique was utilized adhering to the principles of ALARA. COMPARISON: Chest radiograph of same day, CTA chest 06/03/2017. FINDINGS: CTA: There is mild multichamber cardiac enlargement. Coronary arterial calcifications are noted. Left subclavian pacer is noted with leads overlying the right atrium and right ventricle. Coronary arterial calcifications are noted. Thoracic aorta is not well opacified. No definite thoracic aortic aneurysm or dissection identified. Reflux of contrast into the IVC and hepatic veins. The pulmonary arterial tree is opacified to level of the segmental branches. Distal segmental and subsegmental branches not well seen secondary to contrast opacification and respiratory motion. No focal filling defects identified to suggest pulmonary thromboembolic disease. CT CHEST: No dominant thyroid nodule identified. Mildly enlarged paratracheal and AP window lymph nodes measure up to 11 mm in short axis, unchanged. Mildly prominent right hilar lymph nodes are also stable from comparison. Trace right pleural effusion. Biapical pleural-parenchymal scarring. Chronic bilateral reticular opacities. There is thickening of the bronchovascular bundles with bilateral mosaic attenuation. Subsegmental consolidative and groundglass opacities are noted about the lungs, notably within the lower lobes, right middle lobe and inferior segment lingula. Mild intralobular septal thickening. Unchanged 6 mm nodule abutting the fissure near the right middle lobe suggesting a probable lymph node. 5 mm solid nodule of the apical posterior segment left upper lobe on image 293 series 4 appears new. Central airways are patent. No acute process of the imaged upper abdomen. Soft tissues are within normal limits. Bones appear to be intact. IMPRESSION: 1. Mildly limited exam as above without evidence of pulmonary thromboembolic disease. 2. Cardiomegaly with chronic interstitial coarsening. 3. Thickening of the bronchovascular bundles with patchy bilateral subsegmental groundglass and consolidative opacities within a bibasilar predominant distribution suggest multifocal bronchopneumonia or aspiration pneumonitis. 4. Areas of mosaic attenuation suggests associated air trapping. 5. 5 mm solid nodule of the left lung apex. 6. Trace right pleural effusion. The above report was generated using voice recognition software. It may contain grammatical, syntax or spelling errors. Electronically signed by: John Fernandes M.D. 03/29/2018 2:57 PM Dictated Date/Time: 03/29/2018 2:49 PM
[2018-03-29] MEDS ORDERED: SODIUM CHLORIDE 0.9% 1000ML 1,000 ML IV STA (15:05)
[2018-03-29] MEDS ORDERED: VERA240T20 PO (15:36)
[2018-03-29] MEDS ORDERED: MAGNESIUM HYDROXIDE SUSP 30 ML UDC PO PRN (16:00)
[2018-03-29] MEDS ORDERED: ONDANSETRON INJ 2 MG/ML 2 ML VIAL IV PRN (16:00)
[2018-03-29] MEDS ORDERED: ALUMINUM/MAGNESIUM/SIMETH (MAALOX MAX) 30 ML UDC PO PRN (16:00)
--- NOTE | 2018-03-29 16:14 | EMERGENCY ROOM VISIT NOTE ---
History Report prepared by Tina: Nadeem Girard Under the Supervision of: Dr. Robbin Marie D.O. First contact with patient: 10:31 Chief Complaint: FEVER Stated Complaint: COLD, FEVER History of Present Illness The patient is an 87 year old male who presents to the Emergency Room with complaints of a constant subjective fever beginning yesterday. The patient states that he had a cold a week ago that he thought he got over. He notes that he then developed chills, congestion, and a headache yesterday. He reports that he developed rhinorrhea today. He also complains of a cough, weakness, decreased appetite, and an increased frequency of urination. He denies any SOB, abdominal pain, nausea, vomiting, open wounds, and known sick contacts. The patient states that he has a history of asthma and has a pacemaker in place. Source of History: patient Onset: yesterday Position: other (generalized) Quality: other (subjective fever) Timing: constant Associated Symptoms: + chills, + headache, + cough, + weakness, No SOB, No nausea, No vomiting, No abdominal pain Note: The patient also complains of congestion, rhinorrhea, a decreased appetite, and an increased frequency of urination. Review of Systems See HPI for pertinent positives & negatives. A total of 10 systems reviewed and were otherwise negative. 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 (17) Transient ischemic attack Surgical Problems: (1) H/O nasal polypectomy (2) S/P cholecystectomy (3) Status post surgical removal of malignant neoplasm of skin Family History Alzheimer's disease FATHER Asthma MOTHER SON Heart disease MOTHER SISTER Social History Smoking Status: Never Smoker Alcohol Use: none Marital Status: Housing Status: lives alone Occupation Status: retired Current/Historical Medications Scheduled Budesonide/Formoterol Fumarate (Symbicort 80/4.5 Inhaler), 2 PUFFS INH BID Calcium Carbonate-Vitamin D (Calcium 600 + D), 1 TAB PO BID Clopidogrel (Plavix), 75 MG PO DAILY Digoxin (Digox), 125 MCG PO DAILY Finasteride (Proscar), 5 MG PO DAILY Fluticasone Propionate (Nasal) (Allergy Nasal [place] [address]), 2 SPRAY MARVIN DAILY Home O2 Therapy (Oxygen), 2 LITERS NA UD Levalbuterol Hcl (Levalbuterol), 1 VIAL NEB TID Loratadine (Claritin), 10 MG PO DAILY Misc Natural Products (Osteo Bi-Flex Advanced Tr), 1 TAB PO DAILY Montelukast Sodium (Singulair), 10 MG PO DAILY Multivitamin (Multivitamin), 1 TAB PO DAILY Pantoprazole (Protonix), 40 MG PO BID Polyethylene Glycol 3350 (Miralax), 17 GM PO DAILY Potassium Chloride (K-Tab), 20 MEQ PO DAILY Soft Lens Products (Saline Solution), 1 VIAL NEB TID Terazosin Hcl (Hytrin), 2 MG PO HS Verapamil Sust Rel (Calan Sr Ext Rel), 240 MG PO DAILY Scheduled PRN Ipratropium [place] (Atrovent 0.02% Soln), 2.5 ML NEB TID PRN for PRN Allergies Coded Allergies: Aspirin (Verified Allergy, Severe, TIGHTNESS IN CHEST, 03/29/18) NSAIDs (Verified Allergy, Severe, TIGHTNESS IN THE CHEST, 03/29/18) Rofecoxib (Verified Allergy, Severe, TIGHTNESS IN CHEST, 03/29/18) Ibuprofen (Verified Allergy, Intermediate, Asthma Symptoms, 03/29/18) Physical Exam Vital Signs Date Time Temp Pulse Resp B/P (MAP) Pulse Ox O2 Delivery O2 Flow Rate FiO2 03/29/18 14:36 63 18 108/74 95 Room Air 03/29/18 12:18 76 18 103/60 94 Room Air 03/29/18 10:22 36.4 94 18 116/79 93 Room Air Physical Exam GENERAL: Sitting up in bed, alert, chronically ill appearing, well nourished, no distress, non-toxic EYE EXAM: normal conjunctiva. OROPHARYNX: no exudate, no erythema, lips, buccal mucosa, and tongue normal and mucous membranes are moist NECK: supple, no nuchal rigidity, no adenopathy, non-tender LUNGS: Normal chest wall mechanics. Rhonchi bilaterally. HEART: no murmurs, S1 normal and S2 normal ABDOMEN: abdomen soft, non-tender, normo-active bowel sounds, no masses, no rebound or guarding. BACK: Back is symmetrical on inspection and there is no deformity, no midline tenderness, no CVA tenderness. SKIN: no rashes and no bruising UPPER EXTREMITIES: upper extremities are grossly normal. LOWER EXTREMITIES: No pitting edema. NEURO EXAM: Normal sensorium, cranial nerves II-XII grossly intact, normal speech, no gross weakness of arms, no gross weakness of legs. Medical Decision & Procedures ER Provider Diagnostic Interpretation: Radiology results as stated below per my review and the radiologist's interpretation: CHEST 2 VIEWS ROUTINE FINDINGS: Cardiac silhouette is mildly enlarged, unchanged. Atherosclerosis of the aorta. Left subclavian pacer noted. No pneumothorax or pleural effusion. Chronic bilateral reticular opacities noted with hyperinflation. Mild pulmonary vascular congestion with progressively worsened bilateral interstitial opacities. Biapical pleural-parenchymal scarring/pleural thickening. Surgical clips project over the right axillary region. Degenerative changes of the shoulders and spine. IMPRESSION: 1. Hyperinflation with chronic reticular opacities. Interstitial opacities have mildly progressed from comparison suggesting mild pulmonary edema or progressive scarring with interstitial pneumonia thought to be less likely. 2. Cardiomegaly with pulmonary vascular congestion. The above report was generated using voice recognition software. It may contain grammatical, syntax or spelling errors. Electronically signed by: John Fernandes M.D. 03/29/2018 11:50 AM Dictated Date/Time: 03/29/2018 11:46 AM (CHEST FOR PE) ANGIO WITH FINDINGS: CTA: There is mild multichamber cardiac enlargement. Coronary arterial calcifications are noted. Left subclavian pacer is noted with leads overlying the right atrium and right ventricle. Coronary arterial calcifications are noted. Thoracic aorta is not well opacified. No definite thoracic aortic aneurysm or dissection identified. Reflux of contrast into the IVC and hepatic veins. The pulmonary arterial tree is opacified to level of the segmental branches. Distal segmental and subsegmental branches not well seen secondary to contrast opacification and respiratory motion. No focal filling defects identified to suggest pulmonary thromboembolic disease. CT CHEST: No dominant thyroid nodule identified. Mildly enlarged paratracheal and AP window lymph nodes measure up to 11 mm in short axis, unchanged. Mildly prominent right hilar lymph nodes are also stable from comparison. Trace right pleural effusion. Biapical pleural-parenchymal scarring. Chronic bilateral reticular opacities. There is thickening of the bronchovascular bundles with bilateral mosaic attenuation. Subsegmental consolidative and groundglass opacities are noted about the lungs, notably within the lower lobes, right middle lobe and inferior segment lingula. Mild intralobular septal thickening. Unchanged 6 mm nodule abutting the fissure near the right middle lobe suggesting a probable lymph node. 5 mm solid nodule of the apical posterior segment left upper lobe on image 293 series 4 appears new. Central airways are patent. No acute process of the imaged upper abdomen. Soft tissues are within normal limits. Bones appear to be intact. IMPRESSION: 1. Mildly limited exam as above without evidence of pulmonary thromboembolic disease. 2. Cardiomegaly with chronic interstitial coarsening. 3. Thickening of the bronchovascular bundles with patchy bilateral subsegmental groundglass and consolidative opacities within a bibasilar predominant distribution suggest multifocal bronchopneumonia or aspiration pneumonitis. 4. Areas of mosaic attenuation suggests associated air trapping. 5. 5 mm solid nodule of the left lung apex. 6. Trace right pleural effusion. The above report was generated using voice recognition software. It may contain grammatical, syntax or spelling errors. Electronically signed by: John Fernandes M.D. 03/29/2018 2:57 PM Dictated Date/Time: 03/29/2018 2:49 PM Laboratory Results 03/29/18 11:05 Red Blood Count 4.18, Mean Corpuscular Volume 91.1, Mean Corpuscular Hemoglobin 30.6, Mean Corpuscular Hemoglobin Concent 33.6, Mean Platelet Volume 9.5, Neutrophils (%) (Auto) 66.9, Lymphocytes (%) (Auto) 17.4, Monocytes (%) (Auto) 11.6, Eosinophils (%) (Auto) 3.7, Basophils (%) (Auto) 0.2, Neutrophils # (Auto ) 6.60, Lymphocytes # (Auto) 1.72, Monocytes # (Auto) 1.14, Eosinophils # (Auto ) 0.36, Basophils # (Auto) 0.02 03/29/18 11:05 Test 03/29/18 11:05 03/29/18 11:20 03/29/18 11:24 03/29/18 12:30 White Blood Count 9.86 K/uL (4.8-10.8) Red Blood Count 4.18 M/uL (4.7-6.1) Hemoglobin 12.8 g/dL (14.0-18.0) Hematocrit 38.1 % (42-52) Mean Corpuscular Volume 91.1 fL (80-100) Mean Corpuscular Hemoglobin 30.6 pg (25-34) Mean Corpuscular Hemoglobin Concent 33.6 g/dl (32-36) Platelet Count 209 K/uL (130-400) Mean Platelet Volume 9.5 fL (7.4-10.4) Neutrophils (%) (Auto) 66.9 % Lymphocytes (%) (Auto) 17.4 % Monocytes (%) (Auto) 11.6 % Eosinophils (%) (Auto) 3.7 % Basophils (%) (Auto) 0.2 % Neutrophils # (Auto) 6.60 K/uL (1.4-6.5) Lymphocytes # (Auto) 1.72 K/uL (1.2-3.4) Monocytes # (Auto) 1.14 K/uL (0.11-0.59) Eosinophils # (Auto) 0.36 K/uL (0-0.5) Basophils # (Auto) 0.02 K/uL (0-0.2) RDW Standard Deviation 44.7 fL (36.4-46.3) RDW Coefficient of Variation 13.5 % (11.5-14.5) Immature Granulocyte % (Auto) 0.2 % Immature Granulocyte # (Auto) 0.02 K/uL (0.00-0.02) Prothrombin Time 11.2 SECONDS (9.0-12.0) Prothromb Time International Ratio 1.1 (0.9-1.1) Est Creatinine Clear Calc Drug Dose 49.3 ml/min Estimated GFR () 55.3 Estimated GFR (Non- 47.7 BUN/Creatinine Ratio 19.8 (10-20) Calcium Level 8.7 mg/dl (8.5-10.1) Magnesium Level 2.1 mg/dl (1.8-2.4) Total Bilirubin 0.8 mg/dl (0.2-1) Direct Bilirubin 0.3 mg/dl (0-0.2) Aspartate Amino Transf (AST/SGOT) 20 U/L (15-37) Alanine Aminotransferase (ALT/SGPT) 23 U/L (12-78) Alkaline Phosphatase 75 U/L (45-117) Total Creatine Kinase 140 U/L (39-308) Creatine Kinase MB 3.3 ng/ml (0.5-3.6) Creatine Kinase MB Ratio 2.4 (0-3.0) Troponin I < 0.015 ng/ml (0-0.045) Total Protein 6.9 gm/dl (6.4-8.2) Albumin 3.2 gm/dl (3.4-5.0) Bedside Lactic Acid Venous 1.38 mmol/L (0.90-1.70) Bedside Hemoglobin 12.9 g/dl (14.0-18.0) Bedside Hematocrit 38 % (42-52) Bedside Sodium 139 mEq/L (135-144) Bedside Potassium 4.5 mEq/L (3.3-5.0) Bedside Chloride 104 mEq/L (101-112) Bedside Total CO2 26 mEq/l (24-31) Anion Gap 14.0 mmol/L (16-25) Bedside Blood Urea Nitrogen 34 mg/dl (7-18) Bedside Creatinine 1.3 mg/dl (0.6-1.3) Bedside Glucose (other) 82 mg/dl (70-99) Bedside Ionized Calcium (Huy) 1.11 mmol/l (1.12-1.32) Urine Color YELLOW Urine Appearance CLEAR (CLEAR) Urine pH 6.5 (4.5-7.5) Urine Specific [place] 1.011 (1.000-1.030) Urine Protein NEG (NEG) Urine Glucose (UA) NEG (NEG) Urine Ketones NEG (NEG) Urine Occult Blood NEG (NEG) Urine Nitrite NEG (NEG) Urine Bilirubin NEG (NEG) Urine Urobilinogen NEG (NEG) Urine Leukocyte Esterase NEG (NEG) Urine WBC (Auto) 1-5 /hpf (0-5) Urine RBC (Auto) 0-4 /hpf (0-4) Urine Hyaline Casts (Auto) 0 /lpf (0-5) Urine Epithelial Cells (Auto) 0-5 /lpf (0-5) Urine Bacteria (Auto) NEG (NEG) Laboratory results per my review. Medications Administered Medications (Trade) Dose Ordered Sig/Akash Route Start Time Stop Time Status Last Admin Dose Admin Levofloxacin (Levaquin / D5W) 750 mg NOW STAT IV 03/29/18 14:39 03/29/18 14:40 DC 03/29/18 14:47 750 MG Sodium Chloride 1,000 ml @ 999 mls/hr Q1H1M STAT IV 03/29/18 15:05 03/29/18 16:05 DC 03/29/18 15:10 999 MLS/HR ECG Per My Interpretation Indication: weakness Rate (beats per minute): 76 Rhythm: other (afib with variable block) Findings: PVC, RBBB, ST depression (Septal and Lateral leads) Comparison ECG Date: 07/23/2017 Change: no significant change ED Course ED COURSE: Vital signs were reviewed and were normal. The patients medical record was reviewed The above diagnostic studies were performed and reviewed. ED treatments and interventions as stated above. 1044: The patient was evaluated in room C4. A complete history and physical examination was performed. 1154: The patient's pacer was interrogated. 1321: I reevaluated and updated the patient. He is going to CT. 1439: Levofloxacin 750mg IV 1510: I rechecked the patient. 1514 Upon reevaluation, the patient is stable. I discussed my findings with the patient and he understands and agrees with the treatment plan. Based on the patients age, coexisting illnesses, exam and lab findings the decision to treat as an inpatient was made. The patient remained stable while under my care. Discussed the patient's case with Dr. Shaw - KaitlinistDeepa. The patient will be evaluated for further management. Medical Decision Differential diagnosis: Etiologies such as sepsis, UTI, pneumonia, metabolic, electrolyte abnormalities , cardiac sources, intracerebral event, toxicologic, neurologic, as well as others were entertained. Patient is an 87-year-old male with past medical history of an upper respiratory infection that presents to ER for shortness of breath and a persistent cough and weakness. Labs were obtained and CBC along with BMP, LFTs , bilirubin are unremarkable. Troponin was negative. EKG showed A. fib. Pacemaker was interrogated and unremarkable as well with no significant arrhythmias. Chest x-ray did show questionable pneumonia per my read. Consequently I did perform CT was confirms bilateral pneumonia. Patient was given IV fluids and Levaquin. He was updated bedside. Patient was admitted to internal medicine with bilateral multifocal pneumonia. Medication Reconcilliation Current Medication List: was personally reviewed by me Blood Pressure Screening Patient's blood pressure: Normal blood pressure Blood pressure disposition: Did not require urgent referral Consults Time Called: 1510 Consulting Physician: Dr. Shaw - Deepa Omalley Returned Call: 1514 I reviewed the patient's case with Dr. Shaw. He will evaluate the patient for further management. Impression Primary Impression: Bilateral pneumonia Scribe Attestation The scribe's documentation has been prepared under my direction and personally reviewed by me in its entirety. I confirm that the note above accurately reflects all work, treatment, procedures, and medical decision making performed by me. Departure Information Dispostion Being Evaluated By Hospitalist Referrals Dionte Banda, D.O. (PCP) Patient Instructions My [facility] Problem Qualifiers Primary Impression: Bilateral pneumonia Pneumonia type: due to unspecified organism Lung location: unspecified part of lung Qualified Codes: J18.9 - Pneumonia, unspecified organism
[2018-03-29] MEDS ORDERED: ATRINSX NEB (16:26)
[2018-03-29] MEDS ORDERED: LEVA1.255 NEB (16:26)
[2018-03-29] MEDS ORDERED: SYMIN/8045 INH (16:38)
[2018-03-29 17:34] VITALS: BP 130/68; TEMP 36.5; O2SAT 94
[2018-03-29 17:35] VITALS: BP 130/68; TEMP 36.5; O2SAT 94; Ht 195.6 cm; Wt 96.8 kg
--- NOTE | 2018-03-29 18:18 | History and Physical ---
History & Physical Date & Time of Service: Mar 29, 2018 at 17:57 Chief Complaint: Bilateral Pneumonia Primary Care Physician: Dionte Banda D.OLincoln History of Present Illness Source: patient, clinic records, hospital records This is an 87 year old male with a past medical history of asthma, MARU on CPAP, O2 use intermittently with neb treatments and nocturnally, allergic rhinitis, paroxysmal atrial fibrillation on long-term digoxin use, no anticoagulant use due to hx. of recurrent hematomas, tachy-kit syndrome s/p pacemaker in situ, BPH, remote history of TIA - presents with worsening cough, fevers/chills for a few weeks. States he felt like he had the cold a few weeks ago; the symptoms improved on their own and he thought nothing of it. On March 27, he felt fevers/chills/weakness and had a productive cough. Continued to feel bad - he presented to the ED. Upon presentation, he had a chest CT done and shows multifocal pneumonia bilaterally. He tells me that he lost his on February 05, intermittently tearful, but appropriately so. Denies chest pain or palpitations. Past Medical/Surgical History Medical Problems: (1) Acute respiratory distress (2) Arthritis (3) Asthma, moderate persistent (4) Atrial fibrillation (5) Atrial fibrillation with RVR (6) Atrial fibrillation with RVR (7) Atrial flutter (8) Atrial tachycardia (9) Benign prostatic hyperplasia (10) Bilateral pneumonia (11) Bilateral pneumonia (12) Bilateral pneumonia (13) BPH (benign prostatic hypertrophy) (14) Cellulitis (15) Chest pain radiating to upper extremity (16) CKD (chronic kidney disease) stage 3, GFR 30-59 ml/min (17) Cough (18) Dizziness (19) GERD (gastroesophageal reflux disease) (20) Heart block (21) Hematoma of left lower extremity (22) History spontaneous hematomas (23) History spontanous hemorrhage (24) Hypoxia (25) Intractable pain (26) Intramuscular hematoma (27) Irritable Bowel Syndrome (28) Leg pain, right (29) Nausea vomiting and diarrhea (30) Pacemaker (31) Palpitations (32) Paroxysmal a-fib (33) PMR (polymyalgia rheumatica) (34) Reactive airway disease (35) Shortness of breath (36) Syncope (37) Tachy-kit syndrome (38) Transient ischemic attack (39) Viral upper respiratory illness Surgical Problems: (1) H/O nasal polypectomy (2) S/P cholecystectomy (3) Status post surgical removal of malignant neoplasm of skin Family History Alzheimer's disease FATHER Asthma MOTHER SON Heart disease MOTHER SISTER Social History Smoking Status: Never Smoker Marital Status: Housing status: lives with family Occupational Status: retired Immunizations History of Influenza Vaccine: Yes Influenza Vaccine Date: Jul 01, 2017 History of Tetanus Vaccine?: Yes Tetanus Immunization Date: Jan 04, 2009 History of Pneumococcal: Yes Pneumococcal Date: Apr 07, 2015 Allergies Coded Allergies: Aspirin (Verified Allergy, Severe, TIGHTNESS IN CHEST, 03/29/18) NSAIDs (Verified Allergy, Severe, TIGHTNESS IN THE CHEST, 03/29/18) Rofecoxib (Verified Allergy, Severe, TIGHTNESS IN CHEST, 03/29/18) Ibuprofen (Verified Allergy, Intermediate, Asthma Symptoms, 03/29/18) Home Medications Scheduled Budesonide/Formoterol Fumarate (Symbicort 80/4.5 Inhaler), 2 PUFFS INH BID Calcium Carbonate-Vitamin D (Calcium 600 + D), 1 TAB PO BID Clopidogrel (Plavix), 75 MG PO DAILY Digoxin (Digox), 125 MCG PO DAILY Finasteride (Proscar), 5 MG PO DAILY Fluticasone Propionate (Nasal) (Allergy Nasal [place] [address] Ho), 2 SPRAY MARVIN DAILY Home O2 Therapy (Oxygen), 2 LITERS NA UD Levalbuterol Hcl (Levalbuterol), 1 VIAL NEB TID Loratadine (Claritin), 10 MG PO DAILY Misc Natural Products (Osteo Bi-Flex Advanced Tr), 1 TAB PO DAILY Montelukast Sodium (Singulair), 10 MG PO DAILY Multivitamin (Multivitamin), 1 TAB PO DAILY Pantoprazole (Protonix), 40 MG PO BID Polyethylene Glycol 3350 (Miralax), 17 GM PO DAILY Potassium Chloride (K-Tab), 20 MEQ PO DAILY Soft Lens Products (Saline Solution), 1 VIAL NEB TID Terazosin Hcl (Hytrin), 2 MG PO HS Verapamil Sust Rel (Calan Sr Ext Rel), 240 MG PO DAILY Scheduled PRN Ipratropium [place] (Atrovent 0.02% Soln), 2.5 ML NEB TID PRN for PRN Review of Systems Constitutional: + fever, + chills, + weakness, + fatigue Respiratory: + cough, + sputum, + wheezing, No shortness of breath, No dyspnea on exertion, No dyspnea at rest, No hemoptysis, No problem reported Cardiovascular: + edema, No chest pain, No palpitations Abdomen: No pain, No nausea, No diarrhea, No constipation, No GI bleeding Musculoskeletal: No joint pain, No muscle pain Genitourinary - Male: No hematuria, No dysuria, No urinary frequency, No urinary urgency Neurologic: No memory loss Psychiatric: No depression symptoms, No anxiety, No insomnia Endocrine: + fatigue Hematologic / Lymphatic: No abnormal bleeding/bruising Integumentary: No rash Allergic / Immunologic: + seasonal allergies, No environmental allergies Physical Exam Vital Signs Date Time Temp Pulse Resp B/P (MAP) Pulse Ox O2 Delivery O2 Flow Rate FiO2 03/29/18 17:35 36.5 19 130/68 94 Room Air 03/29/18 17:34 36.5 19 130/68 (88) 94 Room Air 03/29/18 17:20 62 20 104/58 94 03/29/18 16:25 67 16 128/59 94 Room Air 03/29/18 14:36 63 18 108/74 95 Room Air 03/29/18 12:18 76 18 103/60 94 Room Air 03/29/18 10:22 36.4 94 18 116/79 93 Room Air General Appearance: no apparent distress, + pertinent finding (ill appearing) Head: normocephalic, atraumatic Eyes: normal inspection ENT: hearing grossly normal Neck: supple Respiratory/Chest: no respiratory distress, no accessory muscle use, + wheezing , + pertinent finding (+pacemaker) Cardiovascular: regular rate, rhythm, no edema, no murmur Abdomen/GI: normal bowel sounds, non tender, soft Extremities/Musculoskelatal: + swelling (+1 pitting edema bilateral lower extremities, SHARON stockings in place), + pertinent finding Neurologic/Psych: heavy repairer II-XII nml as tested, no motor/sensory deficits, alert, normal mood/affect, oriented x 3 Skin: normal color Lymphatic: no adenopathy Diagnostics Laboratory Results Results Past 24 Hours Test 03/29/18 11:05 03/29/18 11:20 03/29/18 11:24 03/29/18 12:30 Range/Units White Blood Count 9.86 4.8-10.8 K/uL Red Blood Count 4.18 4.7-6.1 M/uL Hemoglobin 12.8 14.0-18.0 g/dL Hematocrit 38.1 42-52 % Mean Corpuscular Volume 91.1 80-100 fL Mean Corpuscular Hemoglobin 30.6 25-34 pg Mean Corpuscular Hemoglobin Concent 33.6 32-36 g/dl Platelet Count 209 130-400 K/uL Mean Platelet Volume 9.5 7.4-10.4 fL Neutrophils (%) (Auto) 66.9 % Lymphocytes (%) (Auto) 17.4 % Monocytes (%) (Auto) 11.6 % Eosinophils (%) (Auto) 3.7 % Basophils (%) (Auto) 0.2 % Neutrophils # (Auto) 6.60 1.4-6.5 K/uL Lymphocytes # (Auto) 1.72 1.2-3.4 K/uL Monocytes # (Auto) 1.14 0.11-0.59 K/uL Eosinophils # (Auto) 0.36 0-0.5 K/uL Basophils # (Auto) 0.02 0-0.2 K/uL RDW Standard Deviation 44.7 36.4-46.3 fL RDW Coefficient of Variation 13.5 11.5-14.5 % Immature Granulocyte % (Auto) 0.2 % Immature Granulocyte # (Auto) 0.02 0.00-0.02 K/uL Prothrombin Time 11.2 9.0-12.0 SECONDS Prothromb Time International Ratio 1.1 0.9-1.1 Sodium Level 140 136-145 mmol/L Potassium Level 3.8 3.5-5.1 mmol/L Chloride Level 107 98-107 mmol/L Carbon Dioxide Level 25 21-32 mmol/L Anion Gap 8.0 14.0 16-25 mmol/L Blood Urea Nitrogen 26 7-18 mg/dl Creatinine 1.33 0.60-1.40 mg/dl Est Creatinine Clear Calc Drug Dose 49.3 ml/min Estimated GFR () 55.3 Estimated GFR (Non- 47.7 BUN/Creatinine Ratio 19.8 10-20 Random Glucose 83 70-99 mg/dl Calcium Level 8.7 8.5-10.1 mg/dl Magnesium Level 2.1 1.8-2.4 mg/dl Total Bilirubin 0.8 0.2-1 mg/dl Direct Bilirubin 0.3 0-0.2 mg/dl Aspartate Amino Transf (AST/SGOT) 20 15-37 U/L Alanine Aminotransferase (ALT/SGPT) 23 12-78 U/L Alkaline Phosphatase 75 45-117 U/L Total Creatine Kinase 140 39-308 U/L Creatine Kinase MB 3.3 0.5-3.6 ng/ml Creatine Kinase MB Ratio 2.4 0-3.0 Troponin I < 0.015 0-0.045 ng/ml Total Protein 6.9 6.4-8.2 gm/dl Albumin 3.2 3.4-5.0 gm/dl Bedside Lactic Acid Venous 1.38 0.90-1.70 mmol/L Bedside Hemoglobin 12.9 14.0-18.0 g/dl Bedside Hematocrit 38 42-52 % Bedside Sodium 139 135-144 mEq/L Bedside Potassium 4.5 3.3-5.0 mEq/L Bedside Chloride 104 101-112 mEq/L Bedside Total CO2 26 24-31 mEq/l Bedside Blood Urea Nitrogen 34 7-18 mg/dl Bedside Creatinine 1.3 0.6-1.3 mg/dl Bedside Glucose (other) 82 70-99 mg/dl Bedside Ionized Calcium (Huy) 1.11 1.12-1.32 mmol/l Urine Color YELLOW Urine Appearance CLEAR CLEAR Urine pH 6.5 4.5-7.5 Urine Specific [place] 1.011 1.000-1.030 Urine Protein NEG NEG Urine Glucose (UA) NEG NEG Urine Ketones NEG NEG Urine Occult Blood NEG NEG Urine Nitrite NEG NEG Urine Bilirubin NEG NEG Urine Urobilinogen NEG NEG Urine Leukocyte Esterase NEG NEG Urine WBC (Auto) 1-5 0-5 /hpf Urine RBC (Auto) 0-4 0-4 /hpf Urine Hyaline Casts (Auto) 0 0-5 /lpf Urine Epithelial Cells (Auto) 0-5 0-5 /lpf Urine Bacteria (Auto) NEG NEG Microbiology Results 03/29/18 Blood Culture, Received Pending 03/29/18 Blood Culture, Received Pending Diagnostic Radiology (CHEST FOR PE) ANGIO WITH CT DOSE: 523.51 mGy.cm HISTORY: 87 years-old Male with presents with acute cough and fever. TECHNIQUE: Multiple CTA images of the chest were obtained after the intravenous administration of 94 ml Optiray 320. Coronal and sagittal MIPS were obtained from the axial data set and were submitted for review. A dose lowering technique was utilized adhering to the principles of ALARA. COMPARISON: Chest radiograph of same day, CTA chest 06/03/2017. FINDINGS: CTA: There is mild multichamber cardiac enlargement. Coronary arterial calcifications are noted. Left subclavian pacer is noted with leads overlying the right atrium and right ventricle. Coronary arterial calcifications are noted. Thoracic aorta is not well opacified. No definite thoracic aortic aneurysm or dissection identified. Reflux of contrast into the IVC and hepatic veins. The pulmonary arterial tree is opacified to level of the segmental branches. Distal segmental and subsegmental branches not well seen secondary to contrast opacification and respiratory motion. No focal filling defects identified to suggest pulmonary thromboembolic disease. CT CHEST: No dominant thyroid nodule identified. Mildly enlarged paratracheal and AP window lymph nodes measure up to 11 mm in short axis, unchanged. Mildly prominent right hilar lymph nodes are also stable from comparison. Trace right pleural effusion. Biapical pleural-parenchymal scarring. Chronic bilateral reticular opacities. There is thickening of the bronchovascular bundles with bilateral mosaic attenuation. Subsegmental consolidative and groundglass opacities are noted about the lungs, notably within the lower lobes, right middle lobe and inferior segment lingula. Mild intralobular septal thickening. Unchanged 6 mm nodule abutting the fissure near the right middle lobe suggesting a probable lymph node. 5 mm solid nodule of the apical posterior segment left upper lobe on image 293 series 4 appears new. Central airways are patent. No acute process of the imaged upper abdomen. Soft tissues are within normal limits. Bones appear to be intact. IMPRESSION: 1. Mildly limited exam as above without evidence of pulmonary thromboembolic disease. 2. Cardiomegaly with chronic interstitial coarsening. 3. Thickening of the bronchovascular bundles with patchy bilateral subsegmental groundglass and consolidative opacities within a bibasilar predominant distribution suggest multifocal bronchopneumonia or aspiration pneumonitis. 4. Areas of mosaic attenuation suggests associated air trapping. 5. 5 mm solid nodule of the left lung apex. 6. Trace right pleural effusion. The above report was generated using voice recognition software. It may contain grammatical, syntax or spelling errors. EKG Atrial fibrillation with occasional ventricular-paced complexes and with premature ventricular or aberrantly conducted complexes Right bundle branch block Impression Assessment and Plan This is an 87 year old male with a past medical history of asthma, MARU on CPAP, O2 use intermittently with neb treatments and nocturnally, allergic rhinitis, paroxysmal atrial fibrillation on long-term digoxin use, no anticoagulant use due to hx. of recurrent hematomas, tachy-kit syndrome s/p pacemaker in situ, BPH, remote history of TIA - presents with worsening cough, fevers/chills for a few weeks duration. Multifocal Bibasilar Community Acquired Pneumonia - Chest CT suggests pneumonia - patient has been having fevers/chills/weakness/productive cough - will obtain sputum culture, monitor vitals - given Levaquin in the ED - will change to Rocephin + Azithro Acute Asthma Exacerbation - patient wheezing on admission, likely secondary to pneumonia - will give prednisone 40mg x 5 days - Xopenex/Ipratropium neb TID - patient uses this regularly - O2 nocturnally and with neb treatments MARU on CPAP Paroxysmal A. Fib - currently in A. Fib intermittently - no anticoagulation due to bleed risk - continue Digoxin and Verapamil Tachy-Kit Syndrome s/p Pacemaker in situ Hx. of TIA - has been on Plavix for >20 years, can stop this if needed DVT ppx - SHARON stockings - subq Lovenox FULL CODE Advanced Directives Existing Living Will: Yes Existing Power of Machine Bookkeeper: Yes Resuscitation Status VTE Prophylaxis Will order VTE Prophylaxis: Yes
[2018-03-29] MEDS ORDERED: AZITHROMYCIN IV 500 MG in DEXTROSE 5% 250ML 250 ML IV ONE (18:30)
[2018-03-29] MEDS: CEFTRIAXONE SOD INJ 1 GM in DEXTROSE 5% ADD-VANTAGE 50ML 50 ML IV SCH (18:50)
[2018-03-29] MEDS ORDERED: FINA5TAB PO (18:57)
[2018-03-29 19:05] VITALS: PULSE 78; O2SAT 95
[2018-03-29] MEDS: IPRATROPIUM BROMIDE NEB SOLN 0.02% 2.5 ML VIAL INH SCH (19:05)
[2018-03-29] MEDS: LEVALBUTEROL 1.25MG/0.5ML NEB INH SCH (19:05)
[2018-03-29] MEDS ORDERED: LEVALBUTEROL/IPRATROPIUM NEB INH SCH (20:00)
[2018-03-29] MEDS: BUDESONIDE/FORMOTEROL FUMARATE 80/4.5 60 PUFFS/INHALER INH SCH (20:19)
[2018-03-29 20:20] VITALS: BP 132/74; PULSE 69
[2018-03-29] MEDS: PANTOprazole SOD 40 MG TAB PO SCH (20:21)
[2018-03-29] MEDS: MONTELUKAST SOD 10 MG TAB PO SCH (20:24)
[2018-03-29] MEDS ORDERED: DIGO0.1219 PO (20:47)
[2018-03-29] MEDS ORDERED: CLR10 PO (21:06)
[2018-03-29 22:11] VITALS: PULSE 78; O2SAT 95
[2018-03-29 23:27] VITALS: BP 94/58; PULSE 77; TEMP 36.7; O2SAT 98
[2018-03-29] MEDS: ACETAMINOPHEN 325 MG TAB PO PRN (23:50)
[2018-03-30] VITALS (7 sets, daily range): BP systolic 95–131; BP diastolic 55–76; PULSE 64–93; TEMP 36.4–37.2; O2SAT 92–97
[2018-03-30 06:23] LABS: HEMATOCRIT 36.8 % (42-52); HEMOGLOBIN 12.2 g/dL (14.0-18.0); MEAN CELL VOLUME 91.1 fL (80-100); MEAN CORPUSCULAR HEMOGLOBIN 30.2 pg (25-34); MEAN CORPUSCULAR HGB CONC 33.2 g/dl (32-36); MEAN PLATELET VOLUME 9.7 fL (7.4-10.4); PLATELET COUNT 207 K/uL (130-400); RED CELL DISTRIBUTION WIDTH CV 13.5 % (11.5-14.5); RED CELL DISTRIBUTION WIDTH SD 45.1 fL (36.4-46.3); WHITE BLOOD COUNT 7.63 K/uL (4.8-10.8)
[2018-03-30 06:50] LABS: CALCIUM 8.5 mg/dl (8.5-10.1); CREATININE 1.46 mg/dl (0.60-1.40); POTASSIUM 3.7 mmol/L (3.5-5.1)
[2018-03-30] MEDS: LEVALBUTEROL 1.25MG/0.5ML NEB INH SCH ×3 (07:07→19:20)
[2018-03-30] MEDS: IPRATROPIUM BROMIDE NEB SOLN 0.02% 2.5 ML VIAL INH SCH ×3 (07:07→19:20)
[2018-03-30] MEDS ORDERED: MONTELUKAST SOD 10 MG TAB PO SCH (08:00)
[2018-03-30] MEDS: ENOXAPARIN 40 MG/0.4 ML SYR SQ SCH (08:11)
[2018-03-30] MEDS: VERAPAMIL HCL 240 MG TABCR PO SCH (08:11)
[2018-03-30] MEDS: PANTOprazole SOD 40 MG TAB PO SCH ×2 (08:11→19:43)
[2018-03-30] MEDS: CLOPIDOGREL BISULFATE 75 MG TAB PO SCH (08:12)
[2018-03-30] MEDS: BUDESONIDE/FORMOTEROL FUMARATE 80/4.5 60 PUFFS/INHALER INH SCH ×2 (08:12→19:43)
[2018-03-30] MEDS: FINASTERIDE 5 MG TAB PO SCH (08:12)
[2018-03-30] MEDS: AZITHROMYCIN 250 MG TAB PO SCH (08:12)
[2018-03-30] MEDS: LORATADINE 10 MG TAB PO SCH (08:12)
[2018-03-30] MEDS: POTASSIUM CHLORIDE 20 MEQ TABCR PO SCH (08:12)
[2018-03-30] MEDS: MULTIVITAMIN TAB PO SCH (08:12)
[2018-03-30] MEDS: FLUTICASONE PROPIONATE NA SPR 16 GM BTL NAE SCH (08:13)
[2018-03-30] MEDS: ACETAMINOPHEN 325 MG TAB PO PRN ×2 (08:18→22:01)
[2018-03-30] MEDS: DIGOXIN 0.125 MG TAB PO SCH (15:37)
--- NOTE | 2018-03-30 16:01 | Progress Note ---
Subjective Date of Service: Mar 30, 2018. Subjective Pt evaluation today including: conversation w/ patient, conversation w/ family , physical exam, lab review, review of studies, review of inpatient medication list Saw/examined the patient in room 401 He's doing well, no problems to note today States his breathing is much better and he hasn't coughed much today His son will bring his own CPAP in today Problem List Medical Problems: (1) Acute respiratory distress Status: Acute (2) Atrial fibrillation with RVR Status: Acute (3) Atrial fibrillation with RVR Status: Acute (4) Atrial flutter Status: Acute (5) Atrial tachycardia Status: Acute (6) Bilateral pneumonia Status: Acute (7) Bilateral pneumonia Status: Acute (8) Cellulitis Status: Acute (9) Chest pain radiating to upper extremity Status: Acute (10) Cough Status: Acute (11) Dizziness Status: Acute (12) Hematoma of left lower extremity Status: Acute (13) Hypoxia Status: Acute (14) Intractable pain Status: Acute (15) Intramuscular hematoma Status: Acute (16) Leg pain, right Status: Acute (17) Nausea vomiting and diarrhea Status: Acute (18) Palpitations Status: Acute (19) Reactive airway disease Status: Acute (20) Shortness of breath Status: Acute (21) Syncope Status: Acute (22) Viral upper respiratory illness Status: Acute Review of Systems Constitutional: No fever, No chills Respiratory: + cough (improving), + wheezing, No sputum, No shortness of breath , No dyspnea on exertion, No dyspnea at rest, No hemoptysis Cardiac: No chest pain Abdomen: No pain, No nausea, No vomiting, No diarrhea Medications Current Inpatient Medications Medications (Trade) Dose Ordered Sig/Akash Route Start Time Stop Time Status Last Admin Dose Admin Ioversol (Optiray 320) 100 ml UD PRN IV 03/29/18 13:30 04/02/18 13:29 Acetaminophen (Tylenol Tab) 650 mg Q4H PRN PO 03/29/18 16:00 04/28/18 15:59 03/30/18 08:18 650 MG Al Hydrox/Mg Hydrox/Simethicone (Maalox Max Susp) 15 ml Q4H PRN PO 03/29/18 16:00 04/28/18 15:59 Magnesium Hydroxide (Milk Of Magnesia Susp) 30 ml Q6H PRN PO 03/29/18 16:00 04/28/18 15:59 Ondansetron HCl (Zofran Inj) 4 mg Q6H PRN IV 03/29/18 16:00 04/28/18 15:59 Budesonide/ Formoterol Fumarate (Symbicort 80/ 4.5 Inh) 2 puffs BID INH 03/29/18 20:00 04/28/18 20:59 03/30/18 08:12 2 PUFFS Clopidogrel Bisulfate (plAVix TAB) 75 mg DAILY PO 03/30/18 08:00 04/29/18 08:59 03/30/18 08:12 75 MG Digoxin (Lanoxin Tab) 0.125 mg DAILY@1600 PO 03/30/18 16:00 04/29/18 15:59 03/30/18 15:37 0.125 MG Finasteride (Proscar Tab) 5 mg DAILY PO 03/30/18 08:00 04/29/18 08:59 03/30/18 08:12 5 MG Fluticasone Propionate (Flonase Nasal [place]) 2 sprays DAILY MARVIN 03/30/18 08:00 04/29/18 08:59 03/30/18 08:13 2 SPRAYS Loratadine (Claritin Tab) 10 mg DAILY PO 03/30/18 08:00 04/29/18 08:59 03/30/18 08:12 10 MG Multivitamins (Multivitamin Tab) 1 tab DAILY PO 03/30/18 08:00 04/29/18 08:59 03/30/18 08:12 1 TAB Pantoprazole Sodium (Protonix Tab) 40 mg BID PO 03/29/18 20:00 04/28/18 20:59 03/30/18 08:11 40 MG Terazosin HCl (Hytrin Cap) 2 mg HS PO 03/29/18 21:00 04/28/18 20:59 03/29/18 20:21 2 MG Verapamil HCl (Calan-Sr Tab) 240 mg DAILY PO 03/30/18 08:00 04/29/18 08:59 03/30/18 08:11 240 MG Potassium Chloride (Klor-Con Tab) 20 meq DAILY PO 03/30/18 08:00 04/29/18 08:59 03/30/18 08:12 20 MEQ Ceftriaxone Sodium 1 gm/ Dextrose 50 ml @ 100 mls/hr DAILY@1800 IV 03/29/18 18:30 04/05/18 18:29 03/29/18 18:50 100 MLS/HR Azithromycin (Zithromax Tab) 250 mg QAM PO 03/30/18 08:00 04/06/18 07:59 03/30/18 08:12 250 MG Montelukast Sodium (Singulair Tab) 10 mg HS PO 03/29/18 21:00 04/29/18 08:59 03/29/18 20:24 10 MG Ipratropium [place] (Atrovent 0.02% 0.5MG/2.5ML Neb) 0.5 mg TIDR INH 03/29/18 21:00 04/28/18 20:59 03/30/18 14:16 0.5 MG Levalbuterol (Xopenex 1.25MG/ 0.5ML Neb) 1.25 mg TIDR INH 03/29/18 21:00 04/28/18 20:59 03/30/18 14:16 1.25 MG Prednisone (PredniSONE TAB) 40 mg DAILY PO 03/30/18 08:00 04/29/18 07:59 03/30/18 08:11 40 MG Enoxaparin Sodium (Lovenox Inj) 40 mg QAM SQ 03/30/18 08:00 04/29/18 07:59 03/30/18 08:11 40 MG Objective Vital Signs Date Time Temp Pulse Resp B/P (MAP) Pulse Ox O2 Delivery O2 Flow Rate FiO2 03/30/18 15:37 69 03/30/18 15:28 36.5 65 18 95/55 (68) 92 03/30/18 14:17 67 16 93 Room Air 03/30/18 08:20 Room Air 03/30/18 07:42 36.4 64 18 128/73 (91) 96 2.0 03/30/18 07:08 81 16 95 Nasal Cannula 2.5 03/30/18 00:33 37.2 93 18 131/69 (89) 94 Nasal Cannula 2.5 03/29/18 23:27 36.7 77 16 94/58 (70) 98 Room Air 03/29/18 22:11 78 95 2.0 03/29/18 20:20 69 132/74 (93) 7/22/18 20:00 Room Air 03/29/18 19:05 78 18 95 Room Air 03/29/18 17:35 36.5 19 130/68 94 Room Air 03/29/18 17:34 36.5 19 130/68 (88) 94 Room Air 03/29/18 17:20 62 20 104/58 94 03/29/18 16:25 67 16 128/59 94 Room Air Physical Exam General Appearance: no apparent distress Respiratory/Chest: lungs clear, normal breath sounds, no respiratory distress, no accessory muscle use Cardiovascular: regular rate, rhythm, no edema, no murmur Extremities: normal inspection, no pedal edema Neurologic/Psychiatric: no motor/sensory deficits, alert, normal mood/affect Laboratory Results Last 24 Hours Test 03/30/18 05:43 White Blood Count 7.63 K/uL Red Blood Count 4.04 M/uL Hemoglobin 12.2 g/dL Hematocrit 36.8 % Mean Corpuscular Volume 91.1 fL Mean Corpuscular Hemoglobin 30.2 pg Mean Corpuscular Hemoglobin Concent 33.2 g/dl RDW Standard Deviation 45.1 fL RDW Coefficient of Variation 13.5 % Platelet Count 207 K/uL Mean Platelet Volume 9.7 fL Sodium Level 140 mmol/L Potassium Level 3.7 mmol/L Chloride Level 108 mmol/L Carbon Dioxide Level 23 mmol/L Anion Gap 9.0 mmol/L Blood Urea Nitrogen 22 mg/dl Creatinine 1.46 mg/dl Est Creatinine Clear Calc Drug Dose 44.9 ml/min Estimated GFR () 49.4 Estimated GFR (Non- 42.6 BUN/Creatinine Ratio 15.0 Random Glucose 77 mg/dl Calcium Level 8.5 mg/dl Magnesium Level 2.1 mg/dl Assessment and Plan This is an 87 year old male with a past medical history of asthma, MARU on CPAP, O2 use intermittently with neb treatments and nocturnally, allergic rhinitis, paroxysmal atrial fibrillation on long-term digoxin use, no anticoagulant use due to hx. of recurrent hematomas, tachy-kit syndrome s/p pacemaker in situ, BPH, remote history of TIA - presents with worsening cough, fevers/chills for a few weeks duration. Multifocal Bibasilar Community Acquired Pneumonia 03/30 - continue Rocephin + Azithromycin - cultures pending 03/29 - Chest CT suggests pneumonia - patient has been having fevers/chills/weakness/productive cough - will obtain sputum culture, monitor vitals - given Levaquin in the ED - will change to Rocephin + Azithro Acute Asthma Exacerbation 03/30 - continue prednisone 40mg daily x5 days - Xopenex/Ipratropium nebs TID - scheduled - uses this at baseline 03/29 - patient wheezing on admission, likely secondary to pneumonia - will give prednisone 40mg x 5 days - Xopenex/Ipratropium neb TID - patient uses this regularly - O2 nocturnally and with neb treatments MARU on CPAP Paroxysmal A. Fib - currently in A. Fib intermittently - no anticoagulation due to bleed risk - continue Digoxin and Verapamil Tachy-Kit Syndrome s/p Pacemaker in situ Hx. of TIA - has been on Plavix for >20 years, can stop this if needed DVT ppx - SHARON stockings - subq Lovenox FULL CODE
[2018-03-30] MEDS: CEFTRIAXONE SOD INJ 1 GM in DEXTROSE 5% ADD-VANTAGE 50ML 50 ML IV SCH (17:44)
[2018-03-30] MEDS: MONTELUKAST SOD 10 MG TAB PO SCH (19:43)
[2018-03-30] MEDS ORDERED: GUAIFENESIN 600 MG TABCR PO ONE (21:04)
[2018-03-31 06:29] LABS: HEMATOCRIT 34.7 % (42-52); HEMOGLOBIN 11.9 g/dL (14.0-18.0); MEAN CELL VOLUME 89.7 fL (80-100); MEAN CORPUSCULAR HEMOGLOBIN 30.7 pg (25-34); MEAN CORPUSCULAR HGB CONC 34.3 g/dl (32-36); MEAN PLATELET VOLUME 9.6 fL (7.4-10.4); PLATELET COUNT 202 K/uL (130-400); RED CELL DISTRIBUTION WIDTH CV 13.3 % (11.5-14.5); RED CELL DISTRIBUTION WIDTH SD 43.9 fL (36.4-46.3)
[2018-03-31] MEDS: LEVALBUTEROL 1.25MG/0.5ML NEB INH SCH ×3 (06:56→19:05)
[2018-03-31] MEDS: IPRATROPIUM BROMIDE NEB SOLN 0.02% 2.5 ML VIAL INH SCH ×3 (06:56→19:05)
[2018-03-31 06:58] LABS: CALCIUM 8.5 mg/dl (8.5-10.1); CREATININE 1.32 mg/dl (0.60-1.40); POTASSIUM 3.6 mmol/L (3.5-5.1)
[2018-03-31 06:59] VITALS: PULSE 94; O2SAT 93
[2018-03-31 07:30] VITALS: BP 139/82; PULSE 78; TEMP 36.4; O2SAT 94
[2018-03-31] MEDS: CLOPIDOGREL BISULFATE 75 MG TAB PO SCH (08:32)
[2018-03-31] MEDS: POTASSIUM CHLORIDE 20 MEQ TABCR PO SCH (08:32)
[2018-03-31] MEDS: LORATADINE 10 MG TAB PO SCH (08:32)
[2018-03-31] MEDS: PANTOprazole SOD 40 MG TAB PO SCH ×2 (08:32→20:43)
[2018-03-31] MEDS: AZITHROMYCIN 250 MG TAB PO SCH (08:33)
[2018-03-31] MEDS: FINASTERIDE 5 MG TAB PO SCH (08:33)
[2018-03-31] MEDS: BUDESONIDE/FORMOTEROL FUMARATE 80/4.5 60 PUFFS/INHALER INH SCH ×2 (08:33→20:43)
[2018-03-31] MEDS: FLUTICASONE PROPIONATE NA SPR 16 GM BTL NAE SCH (08:33)
[2018-03-31] MEDS: ENOXAPARIN 40 MG/0.4 ML SYR SQ SCH (08:33)
[2018-03-31] MEDS: VERAPAMIL HCL 240 MG TABCR PO SCH (08:33)
[2018-03-31] MEDS: MULTIVITAMIN TAB PO SCH (08:33)
[2018-03-31] MEDS: GUAIFENESIN 600 MG TABCR PO SCH ×2 (08:36→20:44)
--- NOTE | 2018-03-31 10:29 | Hospitalist Progress Note ---
Hospitalist Progress Note Date of Service Mar 31, 2018. (Bhavya Granados PA-C) Subjective Pt evaluation today including: conversation w/ patient, chart review, lab review Patient was seen and evaluated at bedside in room 401. He offers no new complaints today. He states he feels 90% better than on admission. Continues to have shortness of breath which is chronic and he feels at baseline. Cough is much improved, less productive clear sputum, continued wheezing. He denies fever, chills, sweats, lightheadedness, dizziness, nausea, vomiting, diarrhea, abdominal pain. He states he had small bowel movement yesterday. He is voiding without difficulty but does elicit frequent nocturia which is usual per patient. His appetite is much improved, "it is too good." He states he lives at home alone, is independent, Home Instead comes into home to assist with IADLS. He has been ambulating to and from the bathroom without difficulty. Spoke with RN who agrees with above. Additional Comments: As noted per HPI, 10 systems reviewed and negative unless noted above. All Other Systems: Reviewed and Negative (Bhavya Granados PA-C) Objective Vital Signs Date Time Temp Pulse Resp B/P (MAP) Pulse Ox O2 Delivery O2 Flow Rate FiO2 03/31/18 08:30 Room Air 03/31/18 07:30 36.4 78 18 139/82 (101) 94 03/31/18 06:59 94 16 93 Room Air 03/31/18 00:00 Room Air 03/30/18 22:59 36.4 74 16 117/76 (90) 94 Nasal Cannula 2.0 03/30/18 20:43 73 16 97 Room Air 03/30/18 16:00 Room Air 03/30/18 15:37 69 03/30/18 15:28 36.5 65 18 95/55 (68) 92 03/30/18 14:17 67 16 93 Room Air (Bhavya Granados PA-C) Physical Exam General Appearance: WD/WN, no apparent distress, + pertinent finding (Elderly, appears age.) Eyes: normal inspection, sclerae normal ENT: normal ENT inspection, + pertinent finding (b/l hearing aides; mucus membranes moist) Neck: supple, no adenopathy Respiratory/Chest: chest non-tender, no respiratory distress, no accessory muscle use, + wheezing (b/l expiratory wheezing that did not clear with coughing ) Cardiovascular: regular rate, rhythm, + systolic murmur (soft 1/6 VIJAY RUSB) Abdomen: normal bowel sounds, non tender, soft Extremities: normal range of motion, no pedal edema Neurologic/Psychiatric: alert, normal mood/affect, oriented x 3 Skin: normal color, no rash (Bhavya Granados PA-C) Laboratory Results Item Value Date Time Hemoglobin 11.9 g/dL L 03/31/18601 White Blood Count 8.10 K/uL 03/31/18601 Hematocrit 34.7 % L 03/31/18601 Platelet Count 202 K/uL 03/31/18601 Sodium Level 140 mmol/L 03/31/18601 Potassium Level 3.6 mmol/L 03/31/18601 Blood Urea Nitrogen 26 mg/dl H 03/31/18601 Creatinine 1.32 mg/dl 03/31/18601 (Bhavya Granados PA-C) Assessment and Plan A/P 87 year old male with pmh of Asthma, MARU on CPAP, PAF usp dig, BPH, hx of tachy-kit syndrome s/p ppm presented to [facility] with URI sx x 1-2 weeks worsening. Found to have B/L Community Acquired PNA. Multifocal Bibasilar Community Acquired Pneumonia - Continue Rocephin (Day 3) and Azithromycin (Day 2). I believe we can de- escalate antibiotics tomorrow to Ceftin and Azithromycin - He did receive 1 dose of IV Levaquin in ED. Acute Asthma Exacerbation - Continues to have mild wheezing diffusely. - Continue symbicort, xopenex/ipratropium neb 3 times daily, prednisone (day 2 of 5) - Consider stepping up inhaled corticosteroid therapy at discharge Obstructive sleep apnea -Continue CPAP at at bedtime Paroxysmal A. Fib -Continue digoxin and verapamil for rate and rhythm control. -He is not an oral anticoagulant candidate due to history of hematoma. Tachy-Kit Syndrome s/p Pacemaker in situ Hx. of TIA -Continue Plavix DVT ppx - SHARON stockings - Lovenox - Per nursing he is ambulating throughout room. Disposition: PT and OT eval and treat ordered. Current plan is to discharge patient in a.m. Continued [facility] stay due to: other (Continued pulmonary treatment) (Bhavya Granados, JJ) ATTENDING ADDENDUM care coordinated with TRAVIS Moody Delayed entry date of service noted above please refer to her notes for full details, I agree with her notes patient seen and examined, records reviewed by myself as well on exam, patient seen resting in bed, comfortable, somewhat weak but in good spirits States he feels slowly improving Still has some cough unable to expectorate no other symptoms VS noted and reviewed oriented 2, not in distress, speaks in sentences with no effort nor accessory muscle use normal rate, regular rhythm, no murmurs Positive crackles and rhonchi bilaterally, mild intermittent wheezing non distended, soft, nontender no bipedal edema, erythema, warmth no neuro deficits Labs noted ASSESSMENT/PLAN> Multifocal pneumonia, possible asthma exacerbation Continue prednisone, IV ceftriaxone and azithromycin, bronchodilators Add Mucomyst And chest physiotherapy Monitor Paroxysmal A. fib Continue digoxin and verapamil other diagnoses and plan of care as per TRAVIS Latif notes Pascual Peña MD (Pascual Peña MD)
[2018-03-31] MEDS ORDERED: ACETYLCYSTEINE 20% INHAL SOLN ***DISPENSED BY RESP. INH ONE (13:56)
[2018-03-31 14:35] VITALS: PULSE 94; O2SAT 93
[2018-03-31 14:48] VITALS: BP 104/58; PULSE 74; TEMP 36.6; O2SAT 91
[2018-03-31] MEDS: DIGOXIN 0.125 MG TAB PO SCH (16:23)
[2018-03-31] MEDS: CEFTRIAXONE SOD INJ 1 GM in DEXTROSE 5% ADD-VANTAGE 50ML 50 ML IV SCH (18:09)
[2018-03-31] MEDS: ACETYLCYSTEINE 20% INHAL SOLN ***DISPENSED BY RESP. INH SCH (19:06)
[2018-03-31 19:08] VITALS: PULSE 68; O2SAT 93
[2018-03-31] MEDS: MONTELUKAST SOD 10 MG TAB PO SCH (20:44)
[2018-03-31] MEDS: ACETAMINOPHEN 325 MG TAB PO PRN (20:48)
[2018-03-31 23:28] VITALS: BP 122/77; PULSE 75; TEMP 36.4; O2SAT 93
[2018-04-01] MEDS: LEVALBUTEROL 1.25MG/0.5ML NEB INH SCH ×3 (07:10→18:50)
[2018-04-01] MEDS: IPRATROPIUM BROMIDE NEB SOLN 0.02% 2.5 ML VIAL INH SCH ×3 (07:10→18:50)
[2018-04-01 07:11] VITALS: PULSE 73; O2SAT 96
[2018-04-01] MEDS: ACETYLCYSTEINE 20% INHAL SOLN ***DISPENSED BY RESP. INH SCH ×2 (07:11→18:50)
[2018-04-01 07:15] LABS: HEMOGLOBIN 11.9 g/dL (14.0-18.0); MEAN CELL VOLUME 90.5 fL (80-100); MEAN CORPUSCULAR HEMOGLOBIN 29.9 pg (25-34); MEAN CORPUSCULAR HGB CONC 33.1 g/dl (32-36); MEAN PLATELET VOLUME 9.7 fL (7.4-10.4); PLATELET COUNT 218 K/uL (130-400); RED CELL DISTRIBUTION WIDTH CV 13.4 % (11.5-14.5); RED CELL DISTRIBUTION WIDTH SD 44.2 fL (36.4-46.3); WHITE BLOOD COUNT 7.57 K/uL (4.8-10.8)
[2018-04-01] MEDS: CLOPIDOGREL BISULFATE 75 MG TAB PO SCH (07:31)
[2018-04-01] MEDS: LORATADINE 10 MG TAB PO SCH (07:32)
[2018-04-01] MEDS: MULTIVITAMIN TAB PO SCH (07:33)
[2018-04-01] MEDS: GUAIFENESIN 600 MG TABCR PO SCH ×2 (07:33→20:55)
[2018-04-01 07:34] VITALS: BP 147/87; PULSE 59; TEMP 36.6; O2SAT 96
[2018-04-01] MEDS: AZITHROMYCIN 250 MG TAB PO SCH (07:34)
[2018-04-01] MEDS: VERAPAMIL HCL 240 MG TABCR PO SCH (07:34)
[2018-04-01] MEDS: POTASSIUM CHLORIDE 20 MEQ TABCR PO SCH (07:35)
[2018-04-01] MEDS: FINASTERIDE 5 MG TAB PO SCH (07:35)
[2018-04-01] MEDS: PANTOprazole SOD 40 MG TAB PO SCH ×2 (07:35→20:55)
[2018-04-01] MEDS: FLUTICASONE PROPIONATE NA SPR 16 GM BTL NAE SCH (07:36)
[2018-04-01] MEDS: BUDESONIDE/FORMOTEROL FUMARATE 80/4.5 60 PUFFS/INHALER INH SCH ×2 (07:36→20:55)
[2018-04-01] MEDS: ENOXAPARIN 40 MG/0.4 ML SYR SQ SCH (07:38)
[2018-04-01 07:41] LABS: CALCIUM 8.7 mg/dl (8.5-10.1); CREATININE 1.15 mg/dl (0.60-1.40); POTASSIUM 3.7 mmol/L (3.5-5.1)
[2018-04-01 07:52] LABS: CREATININE 1.16 mg/dl (0.60-1.40)
--- NOTE | 2018-04-01 11:51 | Hospitalist Progress Note ---
Hospitalist Progress Note Date of Service Apr 01, 2018. (Bhavya Granados PA-C) Subjective Pt evaluation today including: conversation w/ patient, chart review Patient seen and evaluated at bedside in room 401-1 I didnt sleep all but 2 hours. He complains of restless legs, It has happened before when on prednisone. Less cough today, productive but clear, + wheezing. Feels the mucomyst and flutter valve helped him clear out. Denies f/c/ s, chest pain, sob, n/v/d. +BM. Appetite is very good. Im not quite ready to go home today, but If I have a good day today maybe tomorrow. Patient wishes for restful sleep. Additional Comments: As noted per HPI, 10 systems reviewed and negative unless noted above. (Bhavya Granados, JJ) Objective Vital Signs Date Time Temp Pulse Resp B/P (MAP) Pulse Ox O2 Delivery O2 Flow Rate FiO2 04/01/18 08:00 Room Air 04/01/18 07:34 36.6 59 18 147/87 (107) 96 2.0 04/01/18 07:11 73 16 96 Nasal Cannula 2.0 04/01/18 00:01 Room Air 03/31/18 23:28 36.4 75 20 122/77 (92) 93 Room Air 03/31/18 19:08 68 16 93 Room Air 03/31/18 16:23 66 03/31/18 16:00 Room Air 03/31/18 14:48 36.6 74 18 104/58 (73) 91 03/31/18 14:35 94 16 93 Room Air (Bhavya Granados, MIROSLAVAC) Physical Exam Notes: Gen: WD/WN, tall, elderly, male, sitting up in bed, very talkative, NAD, A&O x 3 HEENT: Normocephalic/atraumatic, Hearing aid devices in place, conjunctival moist, sclera anicteric, mucous membranes moist. Lung: Clear to Auscultation bilaterally with coarse expiratory wheezing bilaterally, no rales or rhonchi. Heart: regular rate, irregular rhythm, soft 1/6 VIJAY RUSB, rubs, or gallops Abdomen: Soft, NT, ND +BS x 4 Extremities: No edema Skin: Warm, no rash, negative turgor. 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 Found to have B/L Community Acquired PNA. Discussed case with attending physician Dr. Peña. Multifocal Bibasilar Community Acquired Pneumonia - Continue Rocephin (Day 4) and Azithromycin (Day 3). Afebrile, wbc wnl. Will de -escalate antibiotics at discharge to Ceftin and Azithromycin - He did receive 1 dose of IV Levaquin in ED. - ST consult placed, await input to r/o possibility of aspiration. - repeat cbc, bmp in a.m. Acute Asthma Exacerbation - Wheezing improving with acapella device/ mucomyst. - Continue symbicort, xopenex/ipratropium neb TID, prednisone (day 3 of 5), mucomyst, acapella device Obstructive sleep apnea -Continue CPAP at at bedtime Paroxysmal A. Fib -Continue digoxin and verapamil for rate and rhythm control. -He is not an oral anticoagulant candidate due to history of hematoma. Sleep Disturbance -Patient not sleeping well at night, prednisone and nebs may be contributing. -Consider melatonin or low dose benzodiazepine. Tachy-Kit Syndrome s/p Pacemaker in situ Hx. of TIA -Continue Plavix DVT ppx - SHARON stockings - Lovenox Disposition: Patient continues to improve. PT eval reviewed. Awaiting OT/ST. Will re-evaluate patient in a.m. for possible discharge. Continued [facility] stay due to: other (continued pulmonary treatment) Discharge planning: home (Bhavya Granados PA-C) ATTENDING ADDENDUM care coordinated with TRAVIS Latif please refer to her notes for full details, I agree with her notes patient seen and examined, records reviewed by myself as well on exam, patient seen resting in bed, appears improved compared to yesterday States he started to feel better Able to expectorate more, less cough no other symptoms VS noted and reviewed oriented 2, not in distress, speaks in sentences with no effort nor accessory muscle use normal rate, regular rhythm, no murmurs Minimal occasional mild expiratory wheeze, rhonchi non distended, soft, nontender no bipedal edema, erythema, warmth no neuro deficits Labs noted ASSESSMENT/PLAN> Multifocal pneumonia, possible asthma exacerbation Continue prednisone, IV ceftriaxone and azithromycin, bronchodilators, Mucomyst And chest physiotherapy Monitor Paroxysmal A. fib Continue digoxin and verapamil other diagnoses and plan of care as per TRAVIS Latif notes Pascual Peña MD (Pascual Peña MD)
[2018-04-01 14:26] VITALS: PULSE 78; O2SAT 95
[2018-04-01 15:38] VITALS: BP 121/71; PULSE 84; TEMP 36.1; O2SAT 91
[2018-04-01] MEDS: DIGOXIN 0.125 MG TAB PO SCH (15:43)
[2018-04-01] MEDS: CEFTRIAXONE SOD INJ 1 GM in DEXTROSE 5% ADD-VANTAGE 50ML 50 ML IV SCH (18:00)
[2018-04-01 18:53] VITALS: PULSE 61; O2SAT 91
[2018-04-01] MEDS: MONTELUKAST SOD 10 MG TAB PO SCH (20:55)
[2018-04-01] MEDS: ZOLPIDEM TARTRATE 5 MG TAB PO PRN (20:56)
[2018-04-01] MEDS: ACETAMINOPHEN 325 MG TAB PO PRN (20:57)
[2018-04-01 22:58] VITALS: BP 117/74; PULSE 72; TEMP 36.3; O2SAT 98
[2018-04-02 06:06] LABS: HEMATOCRIT 37.2 % (42-52); HEMOGLOBIN 12.5 g/dL (14.0-18.0); MEAN CELL VOLUME 90.3 fL (80-100); MEAN CORPUSCULAR HEMOGLOBIN 30.3 pg (25-34); MEAN CORPUSCULAR HGB CONC 33.6 g/dl (32-36); MEAN PLATELET VOLUME 9.5 fL (7.4-10.4); PLATELET COUNT 227 K/uL (130-400); RED CELL DISTRIBUTION WIDTH CV 13.4 % (11.5-14.5); RED CELL DISTRIBUTION WIDTH SD 44.5 fL (36.4-46.3); WHITE BLOOD COUNT 7.57 K/uL (4.8-10.8)
[2018-04-02 06:42] LABS: CALCIUM 8.3 mg/dl (8.5-10.1); CREATININE 1.16 mg/dl (0.60-1.40); POTASSIUM 3.6 mmol/L (3.5-5.1)
[2018-04-02] MEDS: IPRATROPIUM BROMIDE NEB SOLN 0.02% 2.5 ML VIAL INH SCH ×3 (07:01→19:16)
[2018-04-02 07:02] VITALS: PULSE 67; O2SAT 95
[2018-04-02] MEDS: LEVALBUTEROL 1.25MG/0.5ML NEB INH SCH ×3 (07:02→19:16)
[2018-04-02] MEDS: ACETYLCYSTEINE 20% INHAL SOLN ***DISPENSED BY RESP. INH SCH ×2 (07:02→19:16)
[2018-04-02 07:26] VITALS: BP 155/66; PULSE 77; TEMP 36.4; O2SAT 95
[2018-04-02] MEDS: MULTIVITAMIN TAB PO SCH (08:12)
[2018-04-02] MEDS: CLOPIDOGREL BISULFATE 75 MG TAB PO SCH (08:13)
[2018-04-02] MEDS: FINASTERIDE 5 MG TAB PO SCH (08:13)
[2018-04-02] MEDS: AZITHROMYCIN 250 MG TAB PO SCH (08:14)
[2018-04-02] MEDS: VERAPAMIL HCL 240 MG TABCR PO SCH (08:14)
[2018-04-02] MEDS: POTASSIUM CHLORIDE 20 MEQ TABCR PO SCH (08:14)
[2018-04-02] MEDS: PANTOprazole SOD 40 MG TAB PO SCH ×2 (08:15→21:34)
[2018-04-02] MEDS: GUAIFENESIN 600 MG TABCR PO SCH ×2 (08:15→21:34)
[2018-04-02] MEDS: LORATADINE 10 MG TAB PO SCH (08:15)
[2018-04-02] MEDS: BUDESONIDE/FORMOTEROL FUMARATE 80/4.5 60 PUFFS/INHALER INH SCH ×2 (08:15→19:57)
[2018-04-02] MEDS: FLUTICASONE PROPIONATE NA SPR 16 GM BTL NAE SCH (08:16)
[2018-04-02] MEDS: ENOXAPARIN 40 MG/0.4 ML SYR SQ SCH (08:16)
--- NOTE | 2018-04-02 10:10 | Hospitalist Progress Note ---
Hospitalist Progress Note Date of Service Apr 02, 2018 ~9:00 (Bhavya Granados PA-C) Subjective Pt evaluation today including: conversation w/ patient, chart review Patient was seen and evaluated at bedside in room 401-1, sitting up eating breakfast. "I finally got a good night sleep, I slept straight for 5 hours." "That medication really helped." Overall feels good this morning. Cough much improved , still productive clear phlegm, less wheezing. Denies f/c/s, chest pain, sob, solano, n/v/d, abdominal pain. Appetite is good. He is drinking well. +BM and urinating adequately. No nursing concerns report. "I think if I get another good night sleep I'll definitely be ready to go tomorrow. Additional Comments: As noted per HPI, 10 systems reviewed and negative unless noted above. (Bhavya Granados PA-C) Objective Vital Signs Date Time Temp Pulse Resp B/P (MAP) Pulse Ox O2 Delivery O2 Flow Rate FiO2 04/02/18 07:26 36.4 77 20 155/66 (95) 95 Room Air 04/02/18 07:02 67 18 95 Room Air 04/02/18 00:30 Room Air 04/01/18 22:58 36.3 72 18 117/74 (88) 98 Nasal Cannula 2.0 04/01/18 18:53 61 18 91 Room Air 04/01/18 16:00 Room Air 04/01/18 15:43 83 04/01/18 15:38 36.1 84 16 121/71 (88) 91 Room Air 04/01/18 14:26 78 16 95 Room Air (Bhavya Granados PA-C) Physical Exam General Appearance: WD/WN, no apparent distress, + pertinent finding (tale, elderly male, sitting upright in bed) Eyes: normal inspection, PERRL, sclerae normal ENT: normal ENT inspection, + pertinent finding (Mucous membranes moist, hard of hearing due to hearing aide malfunction) Neck: supple, no adenopathy Respiratory/Chest: chest non-tender, lungs clear, + wheezing (Course wheezing throughtout that is improved from previous exams, no rhonchi or rales, improves with cough), + pertinent finding (incentive spirometer performed up to 2500ml) Cardiovascular: no edema, no gallop, no JVD, + irregularly irregular (but rate controlled) Abdomen: normal bowel sounds, non tender, soft, no organomegaly Extremities: normal range of motion, non-tender, no pedal edema, no calf tenderness Neurologic/Psychiatric: alert, normal mood/affect, oriented x 3 Skin: normal color (warm), no rash (Bhavya Granados PA-C) Laboratory Results Last 24 Hours Item Value Date Time White Blood Count 7.57 K/uL 04/02/18 0515 Hemoglobin 12.5 g/dL L 04/02/18 0515 Hematocrit 37.2 % L 04/02/18 05 Platelet Count 227 K/uL 04/02/18 0515 Sodium Level 139 mmol/L 04/02/18 05 Potassium Level 3.6 mmol/L 04/02/18 05 Chloride Level 108 mmol/L H 04/02/18 05 Blood Urea Nitrogen 28 mg/dl H 04/02/18 0515 Creatinine 1.16 mg/dl 04/02/18 0515 Carbon Dioxide Level 23 mmol/L 04/02/18 0515 (Bhavya Granados PA-C) Assessment and Plan A/P 87 year old male with pmh of Asthma, MARU on CPAP, 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 Found to have B/L Community Acquired PNA. Discussed case with attending physician Dr. Peña. Multifocal Bibasilar Community Acquired Pneumonia - Continue Rocephin (Day 5) and Azithromycin (Day 4). Afebrile, wbc wnl. Will de -escalated at discharge to Augmentin and Azithromycin for total 10 day course. - He did receive 1 dose of IV Levaquin in ED. - ST evaluated patient, swallowing normal at bedside. No signs of aspiration. - repeat cbc, bmp in a.m. Acute Asthma Exacerbation - Continue acapella device/ mucomyst and incentive spirometry - Continue symbicort, xopenex/ipratropium neb TID, prednisone (day 4 of 5), mucomyst, acapella device Obstructive sleep apnea -Continue CPAP at at bedtime Paroxysmal A. Fib -Continue digoxin and verapamil for rate and rhythm control. -He is not an oral anticoagulant candidate due to history of hematoma. Sleep Disturbance -improved with low dose ambien Tachy-Kit Syndrome s/p Pacemaker in situ Hx. of TIA -Continue Plavix DVT ppx - SHARON stockings - Lovenox Disposition: Patient plan to discharge in a.m. Discharge planning: home (tomorrow. Case management aware. Patient has home supplies including nebulizer and vials, Cpap, and Home o2.) (Bhavya Granados PA-C) ATTENDING ADDENDUM care coordinated with TRAVIS Latif please refer to her notes for full details, I agree with her notes patient seen and examined, records reviewed by myself as well on exam, patient seen resting in bed, using the phone Comfortable, states he feels continues to improve No dyspnea, less cough no other symptoms VS noted and reviewed oriented 2, not in distress, speaks in sentences with no effort nor accessory muscle use normal rate, regular rhythm, no murmurs Minimal occasional mild expiratory wheeze, and minimal rhonchi rhonchi non distended, soft, nontender no bipedal edema, erythema, warmth no neuro deficits Labs noted ASSESSMENT/PLAN> Multifocal pneumonia, possible asthma exacerbation Continue prednisone, IV ceftriaxone and azithromycin, bronchodilators, Mucomyst , physical therapy Improving overall Anticipate discharge tomorrow Paroxysmal A. fib Continue digoxin and verapamil other diagnoses and plan of care as per TRAVIS Latif notes Pascual Peña MD (Pascual Peña MD) (Pascual Peña MD)
[2018-04-02 14:19] VITALS: PULSE 66; O2SAT 92
[2018-04-02 14:27] VITALS: BP 115/69; PULSE 54; TEMP 36.3; O2SAT 91
[2018-04-02] MEDS: DIGOXIN 0.125 MG TAB PO SCH (15:31)
[2018-04-02] MEDS: CEFTRIAXONE SOD INJ 1 GM in DEXTROSE 5% ADD-VANTAGE 50ML 50 ML IV SCH (17:47)
[2018-04-02 19:18] VITALS: PULSE 85; O2SAT 96
[2018-04-02] MEDS: MONTELUKAST SOD 10 MG TAB PO SCH (21:35)
[2018-04-02] MEDS: ACETAMINOPHEN 325 MG TAB PO PRN (21:35)
[2018-04-02] MEDS: ZOLPIDEM TARTRATE 5 MG TAB PO PRN (21:36)
[2018-04-02 23:29] VITALS: BP 121/71; PULSE 79; TEMP 36.4; O2SAT 97
[2018-04-03 06:04] LABS: HEMOGLOBIN 12.9 g/dL (14.0-18.0); MEAN CELL VOLUME 90.1 fL (80-100); MEAN CORPUSCULAR HEMOGLOBIN 29.8 pg (25-34); MEAN CORPUSCULAR HGB CONC 33.1 g/dl (32-36); MEAN PLATELET VOLUME 9.4 fL (7.4-10.4); PLATELET COUNT 243 K/uL (130-400); RED CELL DISTRIBUTION WIDTH CV 13.2 % (11.5-14.5); RED CELL DISTRIBUTION WIDTH SD 43.8 fL (36.4-46.3); WHITE BLOOD COUNT 8.56 K/uL (4.8-10.8)
[2018-04-03 06:34] LABS: CALCIUM 8.3 mg/dl (8.5-10.1); CREATININE 1.2 mg/dl (0.60-1.40); POTASSIUM 3.7 mmol/L (3.5-5.1)
[2018-04-03] MEDS: LEVALBUTEROL 1.25MG/0.5ML NEB INH SCH (07:09)
[2018-04-03] MEDS: IPRATROPIUM BROMIDE NEB SOLN 0.02% 2.5 ML VIAL INH SCH (07:09)
[2018-04-03 07:10] VITALS: PULSE 70; O2SAT 93
[2018-04-03] MEDS: ACETYLCYSTEINE 20% INHAL SOLN ***DISPENSED BY RESP. INH SCH (07:10)
[2018-04-03 07:30] VITALS: BP 137/84; PULSE 81; TEMP 36.5; O2SAT 95
[2018-04-03 08:00] VITALS: O2SAT 95
--- NOTE | 2018-04-03 09:09 | Hospitalist Progress Note ---
Hospitalist Progress Note Date of Service Apr 03, 2018. Subjective Pt evaluation today including: conversation w/ patient, chart review Patient was seen and examined at bedside sitting up eating breakfast in room 401 -1 "I had another good night sleep." Overall he feels well this morning and ready to go home. He denies fever, chills, sweats, chest pain, shortness of breath, nausea, vomiting, diarrhea. Cough now mostly absent, no production. Appetite is good. He does elicit to having "jumpy legs." We discussed this yesterday as he said in the past he has had this while on prednisone. We discussed tapering down his prednisone, and if this is still occurring he should discuss this with his PCP when he follows up in a week. Additional Comments: As noted per HPI, 10 systems reviewed and negative unless noted above. Objective Vital Signs Date Time Temp Pulse Resp B/P (MAP) Pulse Ox O2 Delivery O2 Flow Rate FiO2 04/03/18 07:30 36.5 81 18 137/84 (101) 95 Nasal Cannula 2.0 04/03/18 07:10 70 18 93 Room Air 04/02/18 23:35 Room Air 04/02/18 23:29 36.4 79 20 121/71 (88) 97 Room Air 04/02/18 19:18 85 18 96 Room Air 04/02/18 16:00 Room Air 04/02/18 15:31 74 04/02/18 14:27 36.3 54 19 115/69 (84) 91 Room Air 04/02/18 14:19 66 18 92 Room Air Physical Exam Notes: General Appearance: WD/WN, no apparent distress, + pertinent finding (tale, elderly male, sitting upright at bedside eating breakfast) Eyes: normal inspection, PERRL, sclerae normal ENT: normal ENT inspection, + pertinent finding (Mucous membranes moist, bilateral hearing aids present) Neck: supple, no adenopathy Respiratory/Chest: chest non-tender, lungs clear bilaterally with mild rhonchi that clears with coughing, no wheezing or rales auscultated Cardiovascular: no edema, no gallop, no JVD, + irregularly irregular (but rate controlled) Abdomen: normal bowel sounds, non tender, soft, no organomegaly Extremities: normal range of motion, non-tender, no pedal edema, no calf tenderness Neurologic/Psychiatric: alert, normal mood/affect, oriented x 3 Skin: normal color (warm), no rash Laboratory Results Last 24 Hours Item Value Date Time Red Blood Count 4.33 M/uL L 04/03/18 05 Hemoglobin 12.9 g/dL L 04/03/18 05 White Blood Count 8.56 K/uL 04/03/18 05 Platelet Count 243 K/uL 04/03/18 05 Sodium Level 139 mmol/L 04/03/18551 Potassium Level 3.7 mmol/L 04/03/18551 Chloride Level 107 mmol/L 04/03/18 05 Carbon Dioxide Level 26 mmol/L 04/03/18 05 Blood Urea Nitrogen 26 mg/dl H 04/03/18551 Creatinine 1.20 mg/dl 04/03/18551 Random Glucose 84 mg/dl 04/03/[address] from 03/29: 1. Mildly limited exam as above without evidence of pulmonary thromboembolic disease. 2. Cardiomegaly with chronic interstitial coarsening. 3. Thickening of the bronchovascular bundles with patchy bilateral subsegmental groundglass and consolidative opacities within a bibasilar predominant distribution suggest multifocal bronchopneumonia or aspiration pneumonitis. 4. Areas of mosaic attenuation suggests associated air trapping. 5. 5 mm solid nodule of the left lung apex. 6. Trace right pleural effusion. 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 Found to have B/L Community Acquired PNA. Discussed case with attending physician Dr. Peña. Patient is doing well and will be discharged home today. Multifocal Bibasilar Community Acquired Pneumonia - On Rocephin (Day 6) and Azithromycin (Day 5). Afebrile, wbc wnl. Will de- escalated today to doxycycline and Augmentin for a total of a 10 day course of antibiotic treatment. - ST evaluated patient, swallowing normal at bedside. No signs of aspiration. Acute Asthma Exacerbation -Resolving -Discharge patient on home regimen of Symbicort, routine nebulizer treatments, incentive spirometry, Acapella device -Continue home peak flow meter as directed 5mm Left lower lobe lung nodule noted on CT -Follow-up with PCP to determine need for follow-up CAT scan -Prior CT scans reviewed and appears he has had prior nodules in right lung that are no longer noted. Obstructive sleep apnea -Resume CPAP at at bedtime Paroxysmal A. Fib -Continue digoxin and verapamil for rate and rhythm control. -He is not an oral anticoagulant candidate due to history of hematoma. Sleep Disturbance -Patient had 2 restful night sleep with the addition of low-dose Ambien. Will discontinue this at discharge. Tachy-Noble Syndrome s/p Pacemaker in situ Hx. of TIA -Continue Plavix DVT ppx - SHARON stocking - D/C Lovenox Disposition: Patient is being discharged home today. Discharge planning: home
[2018-04-03] MEDS: BUDESONIDE/FORMOTEROL FUMARATE 80/4.5 60 PUFFS/INHALER INH SCH (09:10)
[2018-04-03] MEDS: POTASSIUM CHLORIDE 20 MEQ TABCR PO SCH (09:11)
[2018-04-03] MEDS: FLUTICASONE PROPIONATE NA SPR 16 GM BTL NAE SCH (09:11)
[2018-04-03] MEDS: FINASTERIDE 5 MG TAB PO SCH (09:11)
[2018-04-03] MEDS: AZITHROMYCIN 250 MG TAB PO SCH (09:12)
[2018-04-03] MEDS: ENOXAPARIN 40 MG/0.4 ML SYR SQ SCH (09:13)
[2018-04-03] MEDS ORDERED: PSEU60TA80 PO (09:15)
[2018-04-03] MEDS ORDERED: GUAI1TAB75 PO (09:18)
[2018-04-03] MEDS ORDERED: PRED10TA PO (09:22)
[2018-04-03] MEDS ORDERED: DXY100 PO (09:22)
[2018-04-03] MEDS ORDERED: AMOX875T PO (09:22)
--- NOTE | 2018-04-03 09:29 | Discharge Instructions ---
Discharge Instructions Date of Service Apr 03, 2018. Admission Reason for Admission: Bilateral Pneumonia Discharge Discharge Diagnosis / Problem: Multifocal Pneumonia Discharge Goals Goal(s): Decrease discomfort, Improve function Activity Recommendations Activity Limitations: resume your previous activity . Instructions / Follow-Up Instructions / Follow-Up You were hospitalized for bilateral pneumonia and asthma exacerbation. You were treated with IV antibiotics and are going home on 2 oral antibiotics called Augmentin and doxycycline. Please continue antibiotics as prescribed. You are being discharged home with a prednisone taper please continue as prescribed. While on antibiotics we recommend increasing probiotic intake, for example yogurt. Please continue all other medications as prescribed. FOLLOW UP Follow-up with your PCP Dr. Banda on 04/07/18 at 11:00am. Current Hospital Diet Patient's current hospital diet: Regular Diet Discharge Diet Recommended Diet: Regular Diet Pending Studies Studies pending at discharge: no Medical Emergencies . Who to Call and When: Medical Emergencies: If at any time you feel your situation is an emergency, please call 911 immediately. . Non-Emergent Contact Non-Emergency issues call your: Primary Care Provider Call Non-Emergent contact if: you have a fever, your pain is not controlled, your pain is worsening, your pain is unusual for you, you have any medication questions . . "Provider Documentation" section prepared by Bhavya Granados. .
--- NOTE | 2018-04-03 09:41 | Discharge Summary ---
Discharge Summary Date of Service Apr 03, 2018 ~9:30. Discharge Summary Admission Date: Mar 29, 2018 at 16:02 Discharge Date: Apr 03, 2018 Discharge Disposition: Home Principal Diagnosis: Bilateral pneumonia, Acute asthma exacerbation Secondary Diagnoses/Problems: 5mm Left lower lobe lung nodule noted on CT Obstructive sleep apnea Paroxysmal A. Fib Sleep Disturbance Tachy-Kit Syndrome s/p Pacemaker in situ Hx. of TIA Procedures: Chest Xray: 1. Hyperinflation with chronic reticular opacities. Interstitial opacities have mildly progressed from comparison suggesting mild pulmonary edema or progressive scarring with interstitial pneumonia thought to be less likely. 2. Cardiomegaly with pulmonary vascular congestion. CHEST FOR PE) ANGIO WITH CT DOSE: 523.51 mGy.cm HISTORY: 87 years-old Male with presents with acute cough and fever. TECHNIQUE: Multiple CTA images of the chest were obtained after the intravenous administration of 94 ml Optiray 320. Coronal and sagittal MIPS were obtained from the axial data set and were submitted for review. A dose lowering technique was utilized adhering to the principles of ALARA. COMPARISON: Chest radiograph of same day, CTA chest 06/03/2017. FINDINGS: CTA: There is mild multichamber cardiac enlargement. Coronary arterial calcifications are noted. Left subclavian pacer is noted with leads overlying the right atrium and right ventricle. Coronary arterial calcifications are noted. Thoracic aorta is not well opacified. No definite thoracic aortic aneurysm or dissection identified. Reflux of contrast into the IVC and hepatic veins. The pulmonary arterial tree is opacified to level of the segmental branches. Distal segmental and subsegmental branches not well seen secondary to contrast opacification and respiratory motion. No focal filling defects identified to suggest pulmonary thromboembolic disease. CT CHEST: No dominant thyroid nodule identified. Mildly enlarged paratracheal and AP window lymph nodes measure up to 11 mm in short axis, unchanged. Mildly prominent right hilar lymph nodes are also stable from comparison. Trace right pleural effusion. Biapical pleural-parenchymal scarring. Chronic bilateral reticular opacities. There is thickening of the bronchovascular bundles with bilateral mosaic attenuation. Subsegmental consolidative and groundglass opacities are noted about the lungs, notably within the lower lobes, right middle lobe and inferior segment lingula. Mild intralobular septal thickening. Unchanged 6 mm nodule abutting the fissure near the right middle lobe suggesting a probable lymph node. 5 mm solid nodule of the apical posterior segment left upper lobe on image 293 series 4 appears new. Central airways are patent. No acute process of the imaged upper abdomen. Soft tissues are within normal limits. Bones appear to be intact. IMPRESSION: 1. Mildly limited exam as above without evidence of pulmonary thromboembolic disease. 2. Cardiomegaly with chronic interstitial coarsening. 3. Thickening of the bronchovascular bundles with patchy bilateral subsegmental groundglass and consolidative opacities within a bibasilar predominant distribution suggest multifocal bronchopneumonia or aspiration pneumonitis. 4. Areas of mosaic attenuation suggests associated air trapping. 5. 5 mm solid nodule of the left lung apex. 6. Trace right pleural effusion. The above report was generated using voice recognition software. It may contain grammatical, syntax or spelling errors. Electronically signed by: John Fernandes M.D. 03/29/2018 2:57 PM Pending Studies/Follow-Up: Follow up on 5mm left lower lobe lung nodule Medication Reconciliation New Medications: Amoxicillin & Pot Clavulanate (Augmentin 875-125 mg) 1 Tab Tab 875 MG PO BID for 5 Days, #10 TAB Doxycycline Hyclate (Doxycycline Hyclate) 100 Mg Cap 100 MG PO BID for 5 Days, #10 TABS Prednisone Tab (Prednisone) 10 Mg Tab 10 MG PO UD for 8 Days, #13 TAB Take 30mg po x 2 days, 20 mg 2 days, 10 mg 2 days, 5 mg 2 days then stop Continued Medications: Budesonide/Formoterol Fumarate (Symbicort 80/4.5 Inhaler) 120 Puffs/ Aero 2 PUFFS INH BID Calcium Carbonate-Vitamin D (Calcium 600 + D) 1 Tab Tab 1 TAB PO BID Clopidogrel (Plavix) 75 Mg Tab 75 MG PO DAILY, TAB Digoxin (Digox) 125 Mcg Tab 125 MCG PO DAILY Finasteride (Proscar) 5 Mg Tab 5 MG PO DAILY Fluticasone Propionate (Nasal) (Allergy Nasal [place] 24 Ho) 50 Mcg/Act Spr 2 SPRAY MARVIN DAILY Guaifenesin La (Guaifenesin Er) 600 Mg Tabcr 600 MG PO Q12H, TAB Home O2 Therapy (Oxygen) Gas 2 LITERS NA UD USES HS WITH CPAP AND ALSO WITH NEBULIZER Ipratropium [place] (Atrovent 0.02% Soln) 2.5 Ml Nebu 2.5 ML NEB TID PRN for PRN MIXED WITH THE LEVALBUTEROL Levalbuterol Hcl (Levalbuterol) 1.25 Mg/0.5 Ml Neb 1 VIAL NEB TID Loratadine (Claritin) 10 Mg Tab 10 MG PO DAILY Misc Natural Products (Osteo Bi-Flex Advanced Tr) 1 Tab Tab 1 TAB PO DAILY Montelukast Sodium (Singulair) 10 Mg Tab 10 MG PO DAILY Multivitamin (Multivitamin) Tab 1 TAB PO DAILY, TAB Pantoprazole (Protonix) 40 Mg Tab 40 MG PO BID TAKE 30 MIN BEFORE BREAKFAST AND DINNER Polyethylene Glycol 3350 (Miralax) 1 Pow Pow 17 GM PO DAILY Potassium Chloride (K-Tab) 20 Meq Tab 20 MEQ PO DAILY Soft Lens Products (Saline Solution) 1 Purvi Purvi 1 VIAL NEB TID Terazosin Hcl (Hytrin) 2 Mg Cap 2 MG PO HS Verapamil Sust Rel (Calan Sr Ext Rel) 240 Mg Tabcr 240 MG PO DAILY Admission Information HPI (per Admitting provider): This is an 87 year old male with a past medical history of asthma, MARU on CPAP, O2 use intermittently with neb treatments and nocturnally, allergic rhinitis, paroxysmal atrial fibrillation on long-term digoxin use, no anticoagulant use due to hx. of recurrent hematomas, tachy-kit syndrome s/p pacemaker in situ, BPH, remote history of TIA - presents with worsening cough, fevers/chills for a few weeks. States he felt like he had the cold a few weeks ago; the symptoms improved on their own and he thought nothing of it. On Friday, March 27, he felt fevers/chills/weakness and had a productive cough. Continued to feel bad - he presented to the ED. Upon presentation, he had a chest CT done and shows multifocal pneumonia bilaterally. He tells me that he lost his on February 05, intermittently tearful, but appropriately so. Denies chest pain or palpitations. 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 Found to have B/L Community Acquired PNA. Multifocal Bibasilar Community Acquired Pneumonia - Treated with Rocephin (Day 6) and Azithromycin (Day 5). Afebrile, wbc wnl. Transitioned to doxycycline and Augmentin for a total of a 10 day course of antibiotic treatment. - ST evaluated patient, swallowing normal at bedside. No signs of aspiration. Acute Asthma Exacerbation -Treated with oral prednisone, patient to complete taper at discharge -Discharge patient on home regimen of Symbicort, routine nebulizer treatments, incentive spirometry, Acapella device -Continue home peak flow meter as directed 5mm Left lower lobe lung nodule noted on CT -Follow-up with PCP to determine need for follow-up CAT scan -Prior CT scans reviewed and appears he has had prior nodules in right lung that are no longer noted. Obstructive sleep apnea -Resume CPAP at at bedtime Paroxysmal A. Fib -Continue digoxin and verapamil for rate and rhythm control. -He is not an oral anticoagulant candidate due to history of hematoma. Sleep Disturbance -Patient had 2 restful night sleep with the addition of low-dose Ambien. Will discontinue this at discharge. Tachy-Kit Syndrome s/p Pacemaker in situ Hx. of TIA -Continue Plavix Total time spent on discharge = 30minutes This includes examination of the patient, discharge planning, medication reconciliation, and communication with other providers. Discharge Instructions Discharge Instructions Date of Service Apr 03, 2018. Admission Reason for Admission: Bilateral Pneumonia Discharge Discharge Diagnosis / Problem: Multifocal Pneumonia Discharge Goals Goal(s): Decrease discomfort, Improve function Activity Recommendations Activity Limitations: resume your previous activity . Instructions / Follow-Up Instructions / Follow-Up You were hospitalized for bilateral pneumonia and asthma exacerbation. You were treated with IV antibiotics and are going home on 2 oral antibiotics called Augmentin and doxycycline. Please continue antibiotics as prescribed. You are being discharged home with a prednisone taper please continue as prescribed. While on antibiotics we recommend increasing probiotic intake, for example yogurt. Please continue all other medications as prescribed. FOLLOW UP Follow-up with your PCP Dr. Banda on 04/07/18 at 11:00am. Current Hospital Diet Patient's current hospital diet: Regular Diet Discharge Diet Recommended Diet: Regular Diet Pending Studies Studies pending at discharge: no Medical Emergencies . Who to Call and When: Medical Emergencies: If at any time you feel your situation is an emergency, please call 911 immediately. . Non-Emergent Contact Non-Emergency issues call your: Primary Care Provider Call Non-Emergent contact if: you have a fever, your pain is not controlled, your pain is worsening, your pain is unusual for you, you have any medication questions . . "Provider Documentation" section prepared by Bhavya Granados. Additional Copies To Dionte Banda, [employer].
[2018-04-03] MEDS: GUAIFENESIN 600 MG TABCR PO SCH (10:04)
[2018-04-03] MEDS: LORATADINE 10 MG TAB PO SCH (10:05)
[2018-04-03] MEDS: PANTOprazole SOD 40 MG TAB PO SCH (10:06)
[2018-04-03] MEDS: VERAPAMIL HCL 240 MG TABCR PO SCH (10:06)
[2018-04-03] MEDS: MULTIVITAMIN TAB PO SCH (10:06)
[2018-04-03] MEDS: CLOPIDOGREL BISULFATE 75 MG TAB PO SCH (10:06)
[2018-04-03 11:31] VITALS: BP 137/84; PULSE 81; TEMP 36.5; O2SAT 95
== END 2018-04-03 13:00 | disposition home or self-care (01) | DRG 194 ==
LOC: C.EDB 10:19 → C.4E 16:02 → ENRESERV 16:56
PROVIDERS: ADMIT Family Medicine; ATTEND Internal Medicine
DX: J18.9 Pneumonia, unspecified organism (principal); J45.901 Unspecified asthma with (acute) exacerbation; M19.90 Unspecified osteoarthritis, unspecified site; I48.0 Paroxysmal atrial fibrillation; N40.0 Benign prostatic hyperplasia without lower urinary tract symptoms; N18.3 Chronic kidney disease, stage 3 (moderate); K21.9 Gastro-esophageal reflux disease without esophagitis; Z95.0 Presence of cardiac pacemaker; M35.3 Polymyalgia rheumatica; Z86.73 Personal history of transient ischemic attack (TIA), and cerebral infarction without residual deficits; Z79.02 Long term (current) use of antithrombotics/antiplatelets; Z88.6 Allergy status to analgesic agent; G47.33 Obstructive sleep apnea (adult) (pediatric); R91.1 Solitary pulmonary nodule

== ENCOUNTER 2020-02-28 12:12 | Inpatient (IN) ==
[2020-02-28] MEDS ORDERED: ONDANSETRON INJ 2 MG/ML 2 ML VIAL IV STA (12:31)
--- NOTE | 2020-02-28 12:47 | XRay Report ---
SINGLE VIEW CHEST CLINICAL HISTORY: Generalized abdominal pain. FINDINGS: 2 AP, portable, upright chest radiographs are compared to study dated 07/30/2019 and correl ated with chest CT dated 03/29/2018. The examination is degraded by portable technique and patient rot ation. A 2-lead cardiac pacemaker is unchanged in position and partially obscures the left upper ches t. The heart is enlarged noting atherosclerotic calcification of the thoracic aorta. The pulmonary va sculature is noncongested. Chronic interstitial thickening is similar to previous. Foci of scarring/a telectasis are seen throughout both lungs. There is no airspace consolidation or large pleural effusi on. Biapical scarring is observed. No pneumothorax is seen. The skeletal structures are osteopenic. T he bony thorax is grossly intact. Surgical clips are noted in the right axilla. IMPRESSION: 1. Cardiomegaly and cardiac pacemaker. There is no radiographic evidence of congestive failure. 2. No airspace consolidation or large pleural effusion is identified. ACT 112: Negative or not required by law. Electronically signed by: Noé Gabriel M.D. 02/28/2020 12:46 PM
[2020-02-28 12:59] LABS: Basophils # (auto) 0.03 K/uL (0-0.2); Basophils % (auto) 0.4 %; Eosinophils % (auto) 13.2 %; Hematocrit (blood only) 42.4 % (42-52); Hemoglobin 13.9 g/dL (14.0-18.0); Immature Granulocytes # (auto) 0.03 K/uL (0.00-0.02); Immature Granulocytes % (auto) 0.4 %; Lymphocytes % (auto) 20.5 %; Mean Corpuscular Hemoglobin 30.6 pg (25-34); Mean Corpuscular Hgb Conc 32.8 g/dL (32-36); Mean Corpuscular Volume 93.4 fL (80-100); Mean Platelet Volume 9.3 fL (7.4-10.4); Monocytes # (auto) 0.81 K/uL (0.11-0.59); Monocytes % (auto) 11.9 %; Neutrophils # (auto) 3.66 K/uL (1.4-6.5); Neutrophils % (auto) 53.6 %; Platelet Count 229 K/uL (130-400); RDW Coefficient of Variation 13.5 % (11.5-14.5); RDW Standard Deviation 46.4 fL (36.4-46.3); Red Blood Count 4.54 M/uL (4.7-6.1); White Blood Count 6.83 K/uL (4.8-10.8)
[2020-02-28] MEDS: fentaNYL citrate 100 MCG/2 ML VIAL IV PRN ×3 (13:04→17:35)
[2020-02-28 13:09] LABS: Partial Thromboplastin Ratio 1.2; Partial Thromboplastin Time 33.6 Seconds (21.0-31.0); Prothrombin Time 10.9 Seconds (9.0-12.0)
[2020-02-28 13:14] LABS: Alanine Aminotransferase 23 U/L (12-78); Albumin Level 3.3 gm/dl (3.4-5.0); Aspartate Aminotransferase 18 U/L (15-37); Blood Urea Nitrogen 18 mg/dl (7-18); Calcium 8.9 mg/dl (8.5-10.1); Carbon Dioxide 25 mmol/L (21-32); Chloride 105 mmol/L (98-107); Creatinine Clr Calc Pharmacy 61.3 ml/min; Est GFR (African American) 74.3; Est GFR (Non-African American) 64.1; Glucose 102 mg/dl (70-99); Lipase 169 U/L (73-393); Potassium 3.9 mmol/L (3.5-5.1); Sodium 138 mmol/L (136-145)
[2020-02-28 13:19] LABS: Albumin Globulin Ratio 0.9 (0.9-2); Alkaline Phosphatase 101 U/L (45-117); Bilirubin,Total 0.6 mg/dl (0.2-1); Globulin 3.8 gm/dl (2.5-4.0); Total Protein 7.1 gm/dl (6.4-8.2); Troponin I < 0.015 ng/ml (0-0.045)
--- NOTE | 2020-02-28 13:28 | CT Scan Report ---
CT SCAN OF THE ABDOMEN AND PELVIS WITHOUT IV CONTRAST CLINICAL HISTORY: Lower abdominal pain. COMPARISON STUDY: Abdominal CT dated 11/08/2015. TECHNIQUE: CT scan of the abdomen and pelvis is performed from the lung bases to the proximal femora. Images are reviewed in the axial, sagittal, and coronal planes. IV contrast was not administered for this examination. Note that the examination is suboptimal without IV contrast. A dose lowering techn ique was utilized adhering to the principles of ALARA. CT DOSE: 548.76 mGy.cm FINDINGS: Lung bases: The heart is enlarged and without pericardial effusion. Pacemaker leads are noted. Trace pleural effusions are identified with bibasilar atelectasis. Intralobular septal thickening is noted at the lung bases. A small to moderate hiatal hernia is noted. Liver: The unenhanced liver is normal in size, contour, and attenuation. There is no intrahepatic mateus iary ductal dilatation. Gallbladder: Surgically absent noting clips in the gallbladder fossa. Spleen: Normal in size and attenuation. Pancreas: The unenhanced pancreas is mildly atrophic and grossly unremarkable. Adrenal glands: Unremarkable. Kidneys: The unenhanced kidneys are atrophic and without hydronephrosis. There are no renal calculi i dentified. There is no evidence of contour deforming renal mass lesion. Abdominal vasculature: There is advanced atherosclerotic calcification and mild ectasia of the abdomi nal aorta. 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 Bowel: There is a small bowel loop contained within a left inguinal hernia as seen on image #357. The upstream small bowel loops are distended and fluid-filled measuring up to 3 cm diameter. The distal small bowel loops appear decompressed, and findings suggest small bowel obstruction. There is no pneu matosis intestinalis or portal venous gas. No focally thick walled bowel loops are identified. There is moderate sigmoid diverticulosis without CT evidence of acute diverticulitis. Fecal retention is no kathy throughout the colon. A small duodenal diverticulum is noted. The appendix is not visualized Peritoneum: There is no intraperitoneal free air or abdominal ascites. There is a small fat-containin g umbilical hernia. Lymphadenopathy: None. Pelvic viscera: The prostate gland is enlarged and heterogeneous, measuring 5.6 cm in transverse time s are. There is median lobe hypertrophy. The bladder wall is thickened and trabeculated indicating ch ronic outlet obstruction. A left inguinal hernia contains a small segment of bowel. Suspect a left-si ded varicocele. Skeletal structures: The skeletal structures are osteopenic. There is moderate to advanced lumbosacra l spondylosis and scoliosis. No lytic or blastic lesions are seen. IMPRESSION: 1. Findings are consistent with a low-grade/developing small bowel obstruction secondary to an incarc erated loop of small bowel within a left inguinal hernia. 2. No focally thick walled bowel loops are identified. There is no pneumatosis intestinalis, portal v enous gas, or intraperitoneal free air. 3. Cardiomegaly and trace pleural effusions. 4. Additional findings as above. ACT 112: Negative or not required by law. Electronically signed by: Noé Gabriel M.D. 02/28/2020 1:27 PM
--- NOTE | 2020-02-28 14:02 | Emergency Department Note ---
Impression & Plan Incarcerated inguinal hernia, SBO (small bowel obstruction) ED Provider Note NAME: HAYLEY HOLLOWAY AGE: 89 SEX: M : 1930 ARRIVES VIA: Ambulance INFORMANT: Patient, ED PROVIDER(S): Chai Rosado DO CHIEF COMPLAINT: Abdominal pain HPI: The patient is an 89-year-old male who presented to the emergency department for an evaluation of lower abdominal pain. The patient has had ongoing abdominal pain for the last few weeks. He states that today it is worsened and he started to notice nausea. He has had bowel movements and denies having any recent vomiting. The patient has had ongoing symptoms for quite some time and states that he was evaluated by a general surgeon who told him that he would not likely be able to have surgery because he is such a poor surgical candidate. He went to be evaluated by his primary final installer inspector was not able to be cleared at this time for elective surgery. He returns today because of w orsening pain. He states pain is worsened with any movement or walking. He denies having any fevers or rectal bleeding. ROS: See above HPI for pertinent positives & negatives. A total of 10 systems reviewed and were otherwise negative. PAST MEDICAL HISTORY: See Below PAST SURGICAL HISTORY: See Below FAMILY HISTORY: See Below SOCIAL HISTORY: See Below HOME MEDICATIONS: See Below ALLERGIES: See Below VITALS: See Below PHYSICAL EXAMINATION: GENERAL: The patient is awake and alert. He is very anxious appearing and appears to be uncomfortable. EYES: The conjunctivae are clear. The pupils are round and reactive. EARS, NOSE, MOUTH AND THROAT: The nose is without any evidence of any deformity. Mucous membranes are moist. NECK: The neck is nontender and supple. RESPIRATORY: Normal respiratory effort is noted there is no evidence of wheezing rhonchi or rales CARDIOVASCULAR: Irregular rhythm was noted to auscultation. There is no definite murmur. GASTROINTESTINAL: The abdomen is moderately distended and diffusely tender. There is bilateral lower abdominal tenderness to palpation. There is guarding in the left lower quadrant. There is fullness in the left inguinal region but no discernible hernia on my exam. MUSCULOSKELETAL/EXTREMITIES: There is no evidence of gross deformity full range of motion is noted in the hips and shoulders. SKIN: Pedal edema was noted bilaterally. NEUROLOGIC: Patient is awake alert and oriented x3. MEDICAL DECISION MAKING: The patient is an 89-year-old male who presented to the emergency department for an evaluation of lower abdominal pain. The patient was found to have signs of incarcerated left inguinal hernia on CAT scan. I discussed the patient's laboratory and radiographic studies with him. He was treated with IV fluids and IV pain medication. I will discuss his case with the on-call general surgical group. For further evaluation and possible surgical management. The patient was feeling much better on subsequent reevaluation. Triage Nursing notes reviewed. Prior medical records reviewed Vital Signs: reviewed and remarkable for elevated blood pressure Differential diagnosis: Etiologies such as appendicitis, diverticulitis, obstruction, inflammatory bowel disease, renal colic, PUD, biliary pathology, pancreatitis, mesenteric ischemia, aortic pathology, infections, genitourinary, UTI, perforated viscus, as well as others were entertained. ER treatment provided: See below Diagnostics interpreted by me: ECG: EKG was obtained in the emergency department. My interpretation is atrial fibrillation at 79 bpm. Right bundle branch block pattern was noted. Anterior ST depressions were noted. This was compared to a tracing from June 02, 2018. Paced rhythm has been replaced with atrial fibrillation. Cardiac Monitoring: An order was placed for continuous cardiac monitoring. The monitor shows a rate of 99 with atrial fibrillation rhythm. Laboratory studies: As stated above and show below. Imaging studies: See below Consultation(s): 1415: I discussed this case with Dr. Bush, he is agreed to evaluate the patient in the emergency department for further management disposition. 1530: The patient was evaluated by surgery in the emergency department. A KUB was taken and at this time the patient does not appear to have any vomiting. He recommends that we observe the patient for 24 hours on the medical service with possible surgical intervention if symptoms do not improve. 1610: I discussed this case with Pema who is on-call for the [facility] hospitalist group. She is agreed to evaluate the patient in the emergency department for further management and disposition. Past Med/Surg History Medical History Asthma Atrial fibrillation ABLATION 3 YEARS AGO, PT CURRENTLY IN A-FIB BPH (benign prostatic hyperplasia) Chronic kidney disease GERD (gastroesophageal reflux disease) On home oxygen therapy Pacemaker HX OF SYMPTOMATIC BRADYCARDIA WITH PAUSES Transient ischemic attack (TIA) 20+ YEARS AGO, NO RESIDUAL. Surgical History History of cardiac radiofrequency ablation History of cataract extraction with lens replacement LEFT History of cholecystectomy History of pacemaker Social History Preferred Language: Mohawk Communication Ability: Effective Chairman Emeritus Required: Yes Beliefs That Will Affect Care: None Current Living Situation: Alone Feels Safe at Home: Yes Smoking Status: Never smoker Second Hand Exposure: No ; Hx Alcohol Use: No Hx Substance Use: No Allergies Allergies Allergy/AdvReac Type Severity Reaction Status Date / Time aspirin Allergy Severe TIGHTNESS Verified 02/28/20 12:57 IN CHEST NSAIDS (Non-Steroidal Allergy Severe TIGHTNESS Verified 02/28/20 12:57 Anti-Inflamma IN THE CHEST rofecoxib Allergy Severe TIGHTNESS Verified 02/28/20 12:57 IN CHEST ibuprofen Allergy Intermediate Asthma Verified 02/28/20 12:57 Symptoms Home Meds Home Medications Medication Instructions Recorded Confirmed Calcium 600 + D(3) 1 tab PO BID 06/02/18 02/28/20 acetaminophen [Tylenol Extra 1,000 mg PO Q4H PRN 06/02/18 02/28/20 Strength] clopidogrel [Plavix] 75 mg PO QAM 06/02/18 02/28/20 finasteride 5 mg PO QAM 06/02/18 02/28/20 flunisolide 2 spray INTRANASAL BID 06/02/18 02/28/20 guaifenesin 600 mg PO Q12H PRN 06/02/18 02/28/20 loratadine 10 mg PO QAM 06/02/18 02/28/20 montelukast [Singulair] 10 mg PO HS 06/02/18 02/28/20 multivitamin [Multiple Vitamins] 1 tab PO QAM 06/02/18 02/28/20 polyethylene glycol 3350 [Miralax] 17 g PO DAILY PRN 06/02/18 02/28/20 alfuzosin 10 mg tablet,extended 10 mg PO HS 06/02/19 02/28/20 release 24 hr azithromycin 250 mg PO UD 02/28/20 02/28/20 diclofenac sodium 2 g TOPICAL QID PRN 02/28/20 02/28/20 docusate sodium 100 mg PO BID PRN 02/28/20 02/28/20 levalbuterol HCl 1.25 mg INH Q6H PRN 02/28/20 02/28/20 levothyroxine 50 mcg PO QAM 02/28/20 02/28/20 prednisone 20 mg PO UD 02/28/20 02/28/20 verapamil 240 mg PO HS 02/28/20 02/28/20 Previous Rx's Medication Instructions Recorded ipratropium bromide 0.02 % See Rx Instructions .ROUTE 06/17/19 solution for inhalation .COMPLEX #300 milliliter budesonide-formoterol HFA 160 2 puffs INH BID #10.2 gm 07/01/19 mcg-4.5 mcg/actuation aerosol inhaler levalbuterol tartrate 45 2 puff INHALATION Q8H PRN #15 gm 09/17/19 mcg/actuation aerosol inhaler pantoprazole 40 mg tablet,delayed 40 mg PO BID #60 tab 11/26/19 release Results & Data (ED) Vital Signs Vital Signs - 24 hr 02/28/20 12:20 02/28/20 12:30 02/28/20 13:00 Temperature 36.7 C Temperature Source Oral Pulse Rate 79 84 87 Pulse Rate from SpO2 Sensor 76 80 Respiratory Rate 20 19 15 Blood Pressure 157/101 H 132/77 132/88 Blood Pressure Mean 119 80 108 Pulse Oximetry 92 92 92 Oxygen Delivery Method Room Air Room Air Room Air Oxygen Flow Rate Sepsis Recent Fever Within 48 Hours No Sepsis New/Unexplained Change in Mental Status No Sepsis Action Taken by Nursing No Action Required 02/28/20 13:22 02/28/20 13:30 02/28/20 13:31 Temperature Temperature Source Pulse Rate 72 76 73 Pulse Rate from SpO2 Sensor 76 69 76 Respiratory Rate 15 11 L 13 Blood Pressure 122/70 103/74 Blood Pressure Mean 72 86 Pulse Oximetry 94 86 L 85 L Oxygen Delivery Method Oxygen Flow Rate Sepsis Recent Fever Within 48 Hours Sepsis New/Unexplained Change in Mental Status Sepsis Action Taken by Nursing 02/28/20 13:45 02/28/20 14:00 02/28/20 14:30 Temperature Temperature Source Pulse Rate 75 76 77 Pulse Rate from SpO2 Sensor 74 75 78 Respiratory Rate 13 16 16 Blood Pressure 124/66 126/74 Blood Pressure Mean 85 78 Pulse Oximetry 89 L 90 95 Oxygen Delivery Method Room Air Room Air Oxygen Flow Rate Sepsis Recent Fever Within 48 Hours Sepsis New/Unexplained Change in Mental Status Sepsis Action Taken by Nursing 02/28/20 14:31 02/28/20 14:45 02/28/20 15:09 Temperature Temperature Source Pulse Rate 78 78 86 Pulse Rate from SpO2 Sensor 77 79 75 Respiratory Rate 21 14 15 Blood Pressure Blood Pressure Mean Pulse Oximetry 94 95 93 Oxygen Delivery Method Oxygen Flow Rate Sepsis Recent Fever Within 48 Hours Sepsis New/Unexplained Change in Mental Status Sepsis Action Taken by Nursing 02/28/20 15:10 02/28/20 15:11 02/28/20 15:30 Temperature Temperature Source Pulse Rate 75 76 74 Pulse Rate from SpO2 Sensor 69 76 74 Respiratory Rate 24 18 15 Blood Pressure 127/85 145/90 H Blood Pressure Mean 88 103 Pulse Oximetry 95 96 97 Oxygen Delivery Method Nasal Cannula Oxygen Flow Rate 3 Sepsis Recent Fever Within 48 Hours Sepsis New/Unexplained Change in Mental Status Sepsis Action Taken by Nursing 02/28/20 15:31 02/28/20 16:00 02/28/20 16:30 Temperature Temperature Source Pulse Rate 76 72 Pulse Rate from SpO2 Sensor 77 72 Respiratory Rate 15 13 Blood Pressure 138/82 115/70 Blood Pressure Mean 99 79 Pulse Oximetry 98 100 Oxygen Delivery Method Oxygen Flow Rate Sepsis Recent Fever Within 48 Hours Sepsis New/Unexplained Change in Mental Status Sepsis Action Taken by Nursing 02/28/20 17:04 Temperature Temperature Source Pulse Rate Pulse Rate from SpO2 Sensor Respiratory Rate Blood Pressure Blood Pressure Mean Pulse Oximetry 96 Oxygen Delivery Method Room Air Oxygen Flow Rate Sepsis Recent Fever Within 48 Hours Sepsis New/Unexplained Change in Mental Status Sepsis Action Taken by Retirement Medications Current Medication List: was personally reviewed by me Laboratory Data Attestation: I reviewed the patient's lab results. Result diagrams: 02/28/20 12:49 02/28/20 12:49 Lab Results 02/28/20 02/28/20 02/28/20 Range/Units 12:49 12:49 12:49 WBC 6.83 (4.8-10.8) K/uL RBC 4.54 L (4.7-6.1) M/uL Hgb 13.9 L (14.0-18.0) g/dL Hct 42.4 (42-52) % MCV 93.4 (80-100) fL MCH 30.6 (25-34) pg MCHC 32.8 (32-36) g/dL RDW Std Deviation 46.4 H (36.4-46.3) fL RDW Coeff of Lawson 13.5 (11.5-14.5) % Plt Count 229 (130-400) K/uL MPV 9.3 (7.4-10.4) fL Immature Gran % (Auto) 0.4 % Neut % (Auto) 53.6 % Lymph % (Auto) 20.5 % [place] % (Auto) 11.9 % Eos % (Auto) 13.2 % Baso % (Auto) 0.4 % Neut # (Auto) 3.66 (1.4-6.5) K/uL Lymph # (Auto) 1.40 (1.2-3.4) K/uL [place] # (Auto) 0.81 H (0.11-0.59) K/uL Eos # (Auto) 0.90 H (0-0.5) K/uL Baso # (Auto) 0.03 (0-0.2) K/uL Immature Gran # (Auto) 0.03 H (0.00-0.02) K/uL PT 10.9 (9.0-12.0) Seconds INR 1.0 (0.9-1.1) APTT 33.6 H (21.0-31.0) Seconds PTT Ratio 1.2 Sodium 138 (136-145) mmol/L Potassium 3.9 (3.5-5.1) mmol/L Chloride 105 (98-107) mmol/L Carbon Dioxide 25 (21-32) mmol/L Anion Gap 8.0 (3-11) BUN 18 (7-18) mg/dl Creatinine 1.03 (0.6-1.4) mg/dl Est Cr Clr Drug Dosing 61.3 ml/min Est GFR ( Amer) 74.3 Est GFR (Non-Af Amer) 64.1 BUN/Creatinine Ratio 17.0 (10-20) Glucose 102 H (70-99) mg/dl Calcium 8.9 (8.5-10.1) mg/dl Total Bilirubin 0.6 (0.2-1) mg/dl AST 18 (15-37) U/L ALT 23 (12-78) U/L Alkaline Phosphatase 101 (45-117) U/L Troponin I < 0.015 (0-0.045) ng/ml Total Protein 7.1 (6.4-8.2) gm/dl Albumin 3.3 L (3.4-5.0) gm/dl Globulin 3.8 (2.5-4.0) gm/dl Albumin/Globulin Ratio 0.9 (0.9-2) Lipase 169 (73-393) U/L Digoxin (0.8-2.0) ng/ml 02/28/20 Range/Units 12:49 WBC (4.8-10.8) K/uL RBC (4.7-6.1) M/uL Hgb (14.0-18.0) g/dL Hct (42-52) % MCV (80-100) fL MCH (25-34) pg MCHC (32-36) g/dL RDW Std Deviation (36.4-46.3) fL RDW Coeff of Lawson (11.5-14.5) % Plt Count (130-400) K/uL MPV (7.4-10.4) fL Immature Gran % (Auto) % Neut % (Auto) % Lymph % (Auto) % [place] % (Auto) % Eos % (Auto) % Baso % (Auto) % Neut # (Auto) (1.4-6.5) K/uL Lymph # (Auto) (1.2-3.4) K/uL [place] # (Auto) (0.11-0.59) K/uL Eos # (Auto) (0-0.5) K/uL Baso # (Auto) (0-0.2) K/uL Immature Gran # (Auto) (0.00-0.02) K/uL PT (9.0-12.0) Seconds INR (0.9-1.1) APTT (21.0-31.0) Seconds PTT Ratio Sodium (136-145) mmol/L Potassium (3.5-5.1) mmol/L Chloride (98-107) mmol/L Carbon Dioxide (21-32) mmol/L Anion Gap (3-11) BUN (7-18) mg/dl Creatinine (0.6-1.4) mg/dl Est Cr Clr Drug Dosing ml/min Est GFR ( Amer) Est GFR (Non-Af Amer) BUN/Creatinine Ratio (10-20) Glucose (70-99) mg/dl Calcium (8.5-10.1) mg/dl Total Bilirubin (0.2-1) mg/dl AST (15-37) U/L ALT (12-78) U/L Alkaline Phosphatase (45-117) U/L Troponin I (0-0.045) ng/ml Total Protein (6.4-8.2) gm/dl Albumin (3.4-5.0) gm/dl Globulin (2.5-4.0) gm/dl Albumin/Globulin Ratio (0.9-2) Lipase (73-393) U/L Digoxin 0.4 L (0.8-2.0) ng/ml Administered Medications Fentanyl Citrate (Fentanyl Citrate) 50 mcg IV Q15M PRN PRN Reason: Pain Stop: 03/13/20 12:30 Last Admin: 02/28/20 14:49 Dose: 50 mcg Documented by: [id number] Admin: 02/28/20 13:04 Dose: 50 mcg Documented by: [id number] Discontinued Medications Ondansetron HCl (Zofran) 4 mg IV NOW STA Stop: 02/28/20 12:32 Last Admin: 02/28/20 13:04 Dose: 4 mg Documented by: [id number] Imaging Data Radiologist's Impression: CT SCAN OF THE ABDOMEN AND PELVIS WITHOUT IV CONTRAST CLINICAL HISTORY: Lower abdominal pain. COMPARISON STUDY: Abdominal CT dated 11/08/2015. TECHNIQUE: CT scan of the abdomen and pelvis is performed from the lung bases to the proximal femora. Images are reviewed in the axial, sagittal, and coronal planes. IV contrast was not administered for this examination. Note that the examination is suboptimal without IV contrast. A dose lowering technique was utilized adhering to the principles of ALARA. CT DOSE: 548.76 mGy.cm FINDINGS: Lung bases: The heart is enlarged and without pericardial effusion. Pacemaker leads are noted. Trace pleural effusions are identified with bibasilar atelectasis. Intralobular septal thickening is noted at the lung bases. A small to moderate hiatal hernia is noted. Liver: The unenhanced liver is normal in size, contour, and attenuation. There is no intrahepatic biliary ductal dilatation. Gallbladder: Surgically absent noting clips in the gallbladder fossa. Spleen: Normal in size and attenuation. Pancreas: The unenhanced pancreas is mildly atrophic and grossly unremarkable. Adrenal glands: Unremarkable. Kidneys: The unenhanced kidneys are atrophic and without hydronephrosis. There are no renal calculi identified. There is no evidence of contour deforming renal mass lesion. Abdominal vasculature: There is advanced atherosclerotic calcification and mild ectasia of the abdominal aorta. 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 Bowel: There is a small bowel loop contained within a left inguinal hernia as seen on image #357. The upstream small bowel loops are distended and fluid- filled measuring up to 3 cm diameter. The distal small bowel loops appear decompressed, and findings suggest small bowel obstruction. There is no pneumatosis intestinalis or portal venous gas. No focally thick walled bowel loops are identified. There is moderate sigmoid diverticulosis without CT evidence of acute diverticulitis. Fecal retention is noted throughout the colon. A small duodenal diverticulum is noted. The appendix is not visualized Peritoneum: There is no intraperitoneal free air or abdominal ascites. There is a small fat-containing umbilical hernia. Lymphadenopathy: None. Pelvic viscera: The prostate gland is enlarged and heterogeneous, measuring 5.6 cm in transverse times are. There is median lobe hypertrophy. The bladder wall is thickened and trabeculated indicating chronic outlet obstruction. A left inguinal hernia contains a small segment of bowel. Suspect a left-sided varicocele. Skeletal structures: The skeletal structures are osteopenic. There is moderate to advanced lumbosacral spondylosis and scoliosis. No lytic or blastic lesions are seen. IMPRESSION: 1. Findings are consistent with a low-grade/developing small bowel obstruction secondary to an incarcerated loop of small bowel within a left inguinal hernia. 2. No focally thick walled bowel loops are identified. There is no pneumatosis intestinalis, portal venous gas, or intraperitoneal free air. 3. Cardiomegaly and trace pleural effusions. 4. Additional findings as above. ACT 112: Negative or not required by law. Electronically signed by: Noé Gabriel M.D. 02/28/2020 1:27 PM Dictated: 02/28/201316 Transcribed: 02/28/201316 Blood Pressure Blood Pressure Findings: Elevated blood pressure Blood Pressure Disposition: further management by hospitalist Discharge Plan Visit Data Chief Complaint: Abdominal Pain ED Provider: Chai Rosado Discharge Problem: Incarcerated inguinal hernia, SBO (small bowel obstruction) Patient Disposition: Being Evaluated by Surgeon Condition: Good Forms Stand Alone Forms: My [facility] Prescriptions Prescriptions: No Action ipratropium bromide 0.02 % solution See Rx Instructions .ROUTE .COMPLEX Qty: 300 RF: 5 Symbicort 160-4.5 mcg/actuation HFA aerosol inhaler 2 puffs INH BID Qty: 10.2 RF: 2 levalbuterol tartrate [Xopenex HFA] 45 mcg/actuation HFA aerosol inhaler 2 puff Inhalation Q8H PRN (Reason: Wheezing) Qty: 15 RF: 5 pantoprazole 40 mg tablet,delayed release (DR/EC) 40 mg PO BID Qty: 60 RF: 5 alfuzosin 10 mg tablet extended release 24 hr 10 mg PO HS RF: 0 montelukast [Singulair] 10 mg Tablet 10 mg PO HS RF: 0 guaifenesin 600 mg Tablet Extended Release 12hr 600 mg PO Q12H PRN (Reason: Cough) RF: 0 multivitamin [Multiple Vitamins] Tablet 1 tab PO QAM RF: 0 polyethylene glycol 3350 [Miralax] 17 gram/dose Powder 17 g PO DAILY PRN (Reason: Constipation) RF: 0 finasteride 5 mg Tablet 5 mg PO QAM RF: 0 clopidogrel [Plavix] 75 mg Tablet 75 mg PO QAM RF: 0 flunisolide 25 mcg (0.025 %) [place],Non-Aerosol 2 spray INTRANASAL BID RF: 0 Calcium 600 + D(3) 600 mg calcium- 200 unit Capsule 1 tab PO BID RF: 0 loratadine 10 mg Tablet 10 mg PO QAM RF: 0 acetaminophen [Tylenol Extra Strength] 500 mg Tablet 1,000 mg PO Q4H PRN (Reason: Pain) RF: 0 azithromycin 250 mg tablet 250 mg PO UD RF: 0 prednisone 20 mg tablet 20 mg PO UD RF: 0 levothyroxine 50 mcg tablet 50 mcg PO QAM RF: 0 docusate sodium 100 mg Capsule 100 mg PO BID PRN (Reason: Constipation) RF: 0 verapamil 240 mg tablet extended release 240 mg PO HS RF: 0 diclofenac sodium 1 % gel 2 g TOPICAL QID PRN (Reason: Pain) RF: 0 levalbuterol HCl 1.25 mg/0.5 mL solution for nebulization 1.25 mg INH Q6H PRN (Reason: Shortness Of Breath Or Wheezing) RF: 0 Referrals Referrals: Dionte Banda DO [Primary Care Provider] -
--- NOTE | 2020-02-28 14:36 | Electrocardiogram Report ---
Test Reason : Blood Pressure : / mmHG Vent. Rate : 079 BPM Atrial Rate : 250 BPM P-R Int : 000 ms QRS Dur : 154 ms QT Int : 418 ms P-R-T Axes : 000 -85 -26 degrees QTc Int : 479 ms Atrial fibrillation with premature ventricular or aberrantly conducted complexes Left axis deviation Right bundle branch block Cannot rule out Inferior infarct , age undetermined Abnormal ECG When compared with ECG of 02-JUN-2018 20:59, Atrial fibrillation has replaced Electronic ventricular pacemaker Confirmed by Chai Dickens ([id number]) on 02/28/2020 2:35:48 PM Referred By: SELF Confirmed By:Chai Dickens
--- NOTE | 2020-02-28 15:01 | XRay Report ---
XR KUB/Abdomen 1 view CLINICAL HISTORY: LLQ pain pain COMPARISON STUDY: No previous studies for comparison. FINDINGS: The soft tissues, psoas shadows, renal outlines and intestinal gas pattern appear normal. T here is no evidence for bowel obstruction. No abnormal abdominal calcifications are seen. IMPRESSION: Normal study. ACT 112: Negative or not required by law. The above report was generated using voice recognition software. It may contain grammatical, syntax or spelling errors. Electronically signed by: Phi Head M.D. 02/28/2020 3:00 PM
--- NOTE | 2020-02-28 15:50 | Surgery Consultation ---
Date of Consultation February 28, 2020 Assessment & Plan (1) Abdominal pain: pt is a 89 year-old male who presents to Er with 8 hours left groin pain with bulging, now, pt has no pain or bulging on left groin, IMP: abdominal pain, left inguinal hernia, not incarcerated, Plan, no emergent surgery indication now, I recommend hospitalist will admit pt to hospital, conservative treatment, NPO, IV fluid, repeat labs in am, will F/U, D/W ER attending and pt, they agree with the plan, History of Present Illness History of Present Illness CHIEF COMPLAINT: Abdominal pain HPI: The patient is an 89-year-old male who presented to the emergency department for an evaluation of lower abdominal pain. The patient has had ongoing abdominal pain for the last few weeks. He states that today it is worsened and he started to notice nausea. He has had bowel movements and denies having any recent vomiting. The patient has had ongoing symptoms for quite some time and states that he was evaluated by a general surgeon who told him that he would not likely be able to have surgery because he is such a poor surgical candidate. He went to be evaluated by his primary automotive upholsterer was not able to be cleared at this time for elective surgery. He returns today because of worsening pain. He states pain is worsened with any movement or walking. He denies having any fevers or rectal bleeding. I ( Olegario white MD ) got a call consult for incarcerated left inguinal hernia, I reviewed pt's H/P, labs, CT scan with pt, now pt has no left groin pain, no bulging on left groin, mild abdominal pain on epigastric area, pt denies nausea, no vomiting, no fever, ROS: See above HPI for pertinent positives & negatives. A total of 10 systems reviewed and were otherwise negative. PAST MEDICAL HISTORY: See Below PAST SURGICAL HISTORY: See Below FAMILY HISTORY: See Below SOCIAL HISTORY: See Below HOME MEDICATIONS: See Below ALLERGIES: See Below Allergies Allergy/AdvReac Type Severity Reaction Status Date / Time aspirin Allergy Severe TIGHTNESS Verified 02/28/20 12:57 IN CHEST NSAIDS (Non-Steroidal Allergy Severe TIGHTNESS Verified 02/28/20 12:57 Anti-Inflamma IN THE CHEST rofecoxib Allergy Severe TIGHTNESS Verified 02/28/20 12:57 IN CHEST ibuprofen Allergy Intermediate Asthma Verified 02/28/20 12:57 Symptoms Home Medications Home Medications Medication Instructions Recorded Confirmed Type Calcium 600 + D(3) 1 tab PO BID 06/02/18 02/28/20 History acetaminophen [Tylenol Extra 1,000 mg PO Q4H PRN 06/02/18 02/28/20 History Strength] clopidogrel [Plavix] 75 mg PO QAM 06/02/18 02/28/20 History finasteride 5 mg PO QAM 06/02/18 02/28/20 History flunisolide 2 spray INTRANASAL BID 06/02/18 02/28/20 History guaifenesin 600 mg PO Q12H PRN 06/02/18 02/28/20 History loratadine 10 mg PO QAM 06/02/18 02/28/20 History montelukast [Singulair] 10 mg PO HS 06/02/18 02/28/20 History multivitamin [Multiple Vitamins] 1 tab PO QAM 06/02/18 02/28/20 History polyethylene glycol 3350 [Miralax] 17 g PO DAILY PRN 06/02/18 02/28/20 History alfuzosin 10 mg tablet,extended 10 mg PO HS 06/02/19 02/28/20 History release 24 hr ipratropium bromide 0.02 % See Rx Instructions .ROUTE 06/17/19 02/28/20 Rx solution for inhalation .COMPLEX #300 milliliter budesonide-formoterol HFA 160 2 puffs INH BID #10.2 gm 07/01/19 02/28/20 Rx mcg-4.5 mcg/actuation aerosol inhaler levalbuterol tartrate 45 2 puff INHALATION Q8H PRN #15 gm 09/17/19 02/28/20 Rx mcg/actuation aerosol inhaler pantoprazole 40 mg tablet,delayed 40 mg PO BID #60 tab 11/26/19 02/28/20 Rx release azithromycin 250 mg PO UD 02/28/20 02/28/20 History diclofenac sodium 2 g TOPICAL QID PRN 02/28/20 02/28/20 History docusate sodium 100 mg PO BID PRN 02/28/20 02/28/20 History levalbuterol HCl 1.25 mg INH Q6H PRN 02/28/20 02/28/20 History levothyroxine 50 mcg PO QAM 02/28/20 02/28/20 History prednisone 20 mg PO UD 02/28/20 02/28/20 History verapamil 240 mg PO HS 02/28/20 02/28/20 History Patient History Medical History Asthma Atrial fibrillation ABLATION 3 YEARS AGO, PT CURRENTLY IN A-FIB BPH (benign prostatic hyperplasia) Chronic kidney disease GERD (gastroesophageal reflux disease) On home oxygen therapy Pacemaker HX OF SYMPTOMATIC BRADYCARDIA WITH PAUSES Transient ischemic attack (TIA) 20+ YEARS AGO, NO RESIDUAL. Surgical History History of cardiac radiofrequency ablation History of cataract extraction with lens replacement LEFT History of cholecystectomy History of pacemaker Social History Preferred Language: Grenadian Communication Ability: Effective Coordinator Skill Training Program Required: Yes Beliefs That Will Affect Care: None Current Living Situation: Alone Feels Safe at Home: Yes Smoking Status: Never smoker Second Hand Exposure: No ; Hx Alcohol Use: No Hx Substance Use: No Review of Systems Review of Systems: All systems reviewed & are unremarkable except as noted in HPI & below Constitutional: as per Subjective / HPI Eyes: as per Subjective / HPI Ear, Nose, Mouth, Throat: as per Subjective / HPI Respiratory: as per Subjective / HPI respiratory failure with hypoxia, asthma Cardiovascular: as per Subjective / HPI Additional Comments: tachy-noble syndrome, paroxysmal A- fib, A-fib, Gastrointestinal: as per Subjective / HPI GERD Genitourinary: + as per Subjective / HPI and + problem reported ([place], BPH) Musculoskeletal: as per Subjective / HPI Integumentary: as per Subjective / HPI Neurologic: as per Subjective / HPI Psychiatric: as per Subjective / HPI Endocrine: as per Subjective / HPI Hematologic / Lymphatic: as per Subjective / HPI Physical Exam Constitutional: WD/WN, vitals as above well developed and well nourished Eyes: PERRL, conjunctivae normal, anicteric sclerae ENMT: external ear and nose normal, oropharynx normal Neck: trachea midline, no thyromegaly Respiratory: normal respiratory effort, lungs clear to auscultation normal respiratory effort Cardiovascular: RRR, no murmur, no edema Heart Sounds: normal S1 and normal S2 Gastrointestinal (Abdomen): normal bowel sounds, soft, nontender, no hepatosplenomegaly no tenderness or bulging or mass on left groin, mild tenderness at epigastric area, no rebound pain, no distend, BS + Musculoskeletal: no cyanosis or clubbing, extremities motor strength 5/5 Skin: no rashes, warm and dry Neurologic: patellar DTR's 2+ bilat, sensation intact Psychiatric: Orientation: alert and oriented x 3 Results & Data Vital Signs (Past 12 Hours) Vital Signs Temp Pulse Resp BP Pulse Ox 02/28/20 15:10 75 24 127/85 95 02/28/20 15:09 86 15 93 02/28/20 14:45 78 14 95 02/28/20 14:31 78 21 94 02/28/20 14:30 77 16 126/74 95 02/28/20 14:00 76 16 124/66 90 02/28/20 13:45 75 13 89 L 02/28/20 13:31 73 13 85 L 02/28/20 13:30 76 11 L 103/74 86 L 02/28/20 13:22 72 15 122/70 94 02/28/20 13:00 87 15 132/88 92 02/28/20 12:30 84 19 132/77 92 02/28/20 12:20 36.7 C 79 20 157/101 H 92 Laboratory Results Abnormal lab results 02/28/20 02/28/20 02/28/20 Range/Units 12:49 12:49 12:49 RBC 4.54 L (4.7-6.1) M/uL Hgb 13.9 L (14.0-18.0) g/dL RDW Std Deviation 46.4 H (36.4-46.3) fL [place] # (Auto) 0.81 H (0.11-0.59) K/uL Eos # (Auto) 0.90 H (0-0.5) K/uL Immature Gran # (Auto) 0.03 H (0.00-0.02) K/uL APTT 33.6 H (21.0-31.0) Seconds Glucose 102 H (70-99) mg/dl Albumin 3.3 L (3.4-5.0) gm/dl Digoxin (0.8-2.0) ng/ml 02/28/20 Range/Units 12:49 RBC (4.7-6.1) M/uL Hgb (14.0-18.0) g/dL RDW Std Deviation (36.4-46.3) fL [place] # (Auto) (0.11-0.59) K/uL Eos # (Auto) (0-0.5) K/uL Immature Gran # (Auto) (0.00-0.02) K/uL APTT (21.0-31.0) Seconds Glucose (70-99) mg/dl Albumin (3.4-5.0) gm/dl Digoxin 0.4 L (0.8-2.0) ng/ml Diagnostic Findings CT SCAN OF THE ABDOMEN AND PELVIS WITHOUT IV CONTRAST CLINICAL HISTORY: Lower abdominal pain. COMPARISON STUDY: Abdominal CT dated 11/08/2015. TECHNIQUE: CT scan of the abdomen and pelvis is performed from the lung bases to the proximal femora. Images are reviewed in the axial, sagittal, and coronal planes. IV contrast was not administered for this examination. Note that the examination is suboptimal without IV contrast. A dose lowering technique was utilized adhering to the principles of ALARA. CT DOSE: 548.76 mGy.cm FINDINGS: Lung bases: The heart is enlarged and without pericardial effusion. Pacemaker leads are noted. Trace pleural effusions are identified with bibasilar atelectasis. Intralobular septal thickening is noted at the lung bases. A small to moderate hiatal hernia is noted. Liver: The unenhanced liver is normal in size, contour, and attenuation. There is no intrahepatic biliary ductal dilatation. Gallbladder: Surgically absent noting clips in the gallbladder fossa. Spleen: Normal in size and attenuation. Pancreas: The unenhanced pancreas is mildly atrophic and grossly unremarkable. Adrenal glands: Unremarkable. Kidneys: The unenhanced kidneys are atrophic and without hydronephrosis. There are no renal calculi identified. There is no evidence of contour deforming renal mass lesion. Abdominal vasculature: There is advanced atherosclerotic calcification and mild ectasia of the abdominal aorta. 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 Bowel: There is a small bowel loop contained within a left inguinal hernia as seen on image #357. The upstream small bowel loops are distended and fluid- filled measuring up to 3 cm diameter. The distal small bowel loops appear decompressed, and findings suggest small bowel obstruction. There is no pneumatosis intestinalis or portal venous gas. No focally thick walled bowel loops are identified. There is moderate sigmoid diverticulosis without CT e vidence of acute diverticulitis. Fecal retention is noted throughout the colon. A small duodenal diverticulum is noted. The appendix is not visualized Peritoneum: There is no intraperitoneal free air or abdominal ascites. There is a small fat-containing umbilical hernia. Lymphadenopathy: None. Pelvic viscera: The prostate gland is enlarged and heterogeneous, measuring 5.6 cm in transverse times are. There is median lobe hypertrophy. The bladder wall is thickened and trabeculated indicating chronic outlet obstruction. A left inguinal hernia contains a small segment of bowel. Suspect a left-sided varicocele. Skeletal structures: The skeletal structures are osteopenic. There is moderate to advanced lumbosacral spondylosis and scoliosis. No lytic or blastic lesions are seen. IMPRESSION: 1. Findings are consistent with a low-grade/developing small bowel obstruction secondary to an incarcerated loop of small bowel within a left inguinal hernia. 2. No focally thick walled bowel loops are identified. There is no pneumatosis intestinalis, portal venous gas, or intraperitoneal free air. 3. Cardiomegaly and trace pleural effusions. 4. Additional findings as above. XR KUB/Abdomen 1 view CLINICAL HISTORY: LLQ pain pain COMPARISON STUDY: No previous studies for comparison. FINDINGS: The soft tissues, psoas shadows, renal outlines and intestinal gas pattern appear normal. There is no evidence for bowel obstruction. No abnormal abdominal calcifications are seen. IMPRESSION: Normal study.
--- NOTE | 2020-02-28 16:18 | History & Physical Report ---
Date of Service February 28, 2020 Assessment & Plan (1) Incarcerated inguinal hernia: (2) SBO (small bowel obstruction): This is an 89yo M with a PMH of chronic atrial fibrillation, heart block s/p pacemaker placement in 2005, asthma, bronchiectasis, MARU on CPAP, CKD III, inguinal hernia and other medical problems listed below who presents with lower abdominal pain was found to have possible incarcerated left inguinal hernia and low-grade/developing small bowel obstruction. -Intermittent left lower quadrant and groin pain over the past few months that is wax and wane, became much more severe and constant starting this morning -Tentative surgical date of 03/06/[address] Dr[address] Patterson but patient very high risk from cardiac perspective -JJ Fabian discontinued digoxin 3 days ago due to possible GI side effects in attempt to medically manage GI symptoms without surgery and verapamil dose was increased -Today, afebrile, vital signs stable, no leukocytosis -CT abd/pelvis findings are consistent with a low-grade/developing small bowel obstruction secondary to an incarcerated loop of small bowel within a left inguinal hernia. No pneumatosis intestinalis, portal venous gas or intraperitoneal free air -Dr. Bush of general surgery evaluated patient in ED and felt hernia was reducible. Repeat imaging with KUB was a normal study without bowel obstruction -Admitted to medicine with plan for conservative treatment overnight with patient n.p.o., IV fluids, pain control and repeat labs & KUB in AM -Will hold plavix tomorrow morning. If no procedure planned, resume plavix -Will require cardiac clearance prior to surgery (3) Chronic atrial fibrillation: Continue recently increased verapamil dose -Anticoagulation contraindicated due to recurrent hematoma (4) COPD (chronic obstructive pulmonary disease) case management patient: Continue home inhalers and neb treatments PRN (5) Heart block: S/p pacemaker placement. Normal interrogation today (6) CKD (chronic kidney disease) stage 3, GFR 30-59 ml/min: Kidney function at baseline. Continue to monitor (7) MARU on CPAP: CPAP + 3L O2 HS and supplemental O2 PRN during day in setting of COPD (8) BPH (benign prostatic hypertrophy): Hold alfuzosin and finasteride while NPO. Bladder scan PRN DVT Ppx: SCDs Code status: FULL PCP: Sally Banda Dispo: Admitted to med tele. Discharge planning ordered. Patient seen in collaboration with Dr. Morse. Please see addendum. History of Present Illness Chief Complaint: abd pain Primary Care Provider: Dionte Banda, This is an 89yo M with a PMH of chronic atrial fibrillation, heart block s/p pacemaker placement in 2005, asthma, bronchiectasis, MARU on CPAP, CKD III, inguinal hernia and other medical problems listed below who presents with lower abdominal pain. Endorses pain over the past few months in the left inguinal region that waxed and waned. Starting yesterday morning, patient developed worsened constant pain in left groin area associated with nausea and chills. Denies any fever or vomiting. Last bowel movement was 2 days ago. Has had inguinal hernia for the past few months and stated that he would see a bulge some of the time and then it would resolve spontaneously. Has been evaluated by Dr. Patterson of [facility] general surgery for inguinal hernia repair with CT scan demonstrating a small inguinal hernia. Also has left lower quadrant/suprapubic pain that occurs intermittently. 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 Endorses a [address] Patterson does not feel that all abdominal symptoms are related to hernia but does have tentative surgical date of 03/06/2020 for hernia repair. Saw JJ Fabian of cardiology for surgical clearance and was determined to be high risk. Digoxin was discontinued due to possible GI side effects in attempt to medically manage GI symptoms without surgery and verapamil dose was increased. This change was made 3 days ago. Currently patient endorsing 6/10 left inguinal pain with associated nausea. Denies fever, headache, lightheadedness, visual changes, chest pain, palpitations, shortness of breath, vomiting, dysuria or diarrhea. Vital signs are stable. No leukocytosis. CT abd/pelvis findings are consistent with a low-grade/developing small bowel obstruction secondary to an incarcerated loop of small bowel within a left inguinal hernia. No focally thick walled bowel loops are identified. There is no pneumatosis intestinalis, portal venous gas, or intraperitoneal free air. Dr. Bush of general surgery evaluated patient in ED and felt hernia was reducible on exam. Ordered KUB at this time, which was a normal study without bowel obstruction. Plan for conservative treatment overnight with patient n.p.o., IV fluids and repeat labs in a.m. Allergies Allergy/AdvReac Type Severity Reaction Status Date / Time aspirin Allergy Severe TIGHTNESS Verified 02/28/20 12:57 IN CHEST NSAIDS (Non-Steroidal Allergy Severe TIGHTNESS Verified 02/28/20 12:57 Anti-Inflamma IN THE CHEST rofecoxib Allergy Severe TIGHTNESS Verified 02/28/20 12:57 IN CHEST ibuprofen Allergy Intermediate Asthma Verified 02/28/20 12:57 Symptoms Home Medications Home Medications Medication Instructions Recorded Confirmed Type Calcium 600 + D(3) 1 tab PO BID 06/02/18 02/28/20 History acetaminophen [Tylenol Extra 1,000 mg PO Q4H PRN 06/02/18 02/28/20 History Strength] clopidogrel [Plavix] 75 mg PO QAM 06/02/18 02/28/20 History finasteride 5 mg PO QAM 06/02/18 02/28/20 History flunisolide 2 spray INTRANASAL BID 06/02/18 02/28/20 History guaifenesin 600 mg PO Q12H PRN 06/02/18 02/28/20 History loratadine 10 mg PO QAM 06/02/18 02/28/20 History montelukast [Singulair] 10 mg PO HS 06/02/18 02/28/20 History multivitamin [Multiple Vitamins] 1 tab PO QAM 06/02/18 02/28/20 History polyethylene glycol 3350 [Miralax] 17 g PO DAILY PRN 06/02/18 02/28/20 History alfuzosin 10 mg tablet,extended 10 mg PO HS 06/02/19 02/28/20 History release 24 hr ipratropium bromide 0.02 % See Rx Instructions .ROUTE 06/17/19 02/28/20 Rx solution for inhalation .COMPLEX #300 milliliter budesonide-formoterol HFA 160 2 puffs INH BID #10.2 gm 07/01/19 02/28/20 Rx mcg-4.5 mcg/actuation aerosol inhaler levalbuterol tartrate 45 2 puff INHALATION Q8H PRN #15 gm 09/17/19 02/28/20 Rx mcg/actuation aerosol inhaler pantoprazole 40 mg tablet,delayed 40 mg PO BID #60 tab 03/20/20 06/22/20 Rx release azithromycin 250 mg PO UD 02/28/20 02/28/20 History diclofenac sodium 2 g TOPICAL QID PRN 02/28/20 02/28/20 History docusate sodium 100 mg PO BID PRN 02/28/20 02/28/20 History levalbuterol HCl 1.25 mg INH Q6H PRN 02/28/20 02/28/20 History levothyroxine 50 mcg PO QAM 02/28/20 02/28/20 History prednisone 20 mg PO UD 02/28/20 02/28/20 History verapamil 240 mg PO HS 02/28/20 02/28/20 History Past Med/Surg History Medical History (Updated 02/28/20 @ 17:49 by Pema Lim PA-C) Asthma Atrial fibrillation (Chronic) BPH (benign prostatic hyperplasia) Chronic kidney disease GERD (gastroesophageal reflux disease) On home oxygen therapy MARU on CPAP Pacemaker HX OF SYMPTOMATIC BRADYCARDIA WITH PAUSES Transient ischemic attack (TIA) 20+ YEARS AGO, NO RESIDUAL. Surgical History History of cardiac radiofrequency ablation History of cataract extraction with lens replacement LEFT History of cholecystectomy History of pacemaker Status post cataract extraction Family History Other Asthma Heart disease Social History (Updated 02/28/20 @ 17:35 by Pema Lim PA-C) Preferred Language: Greek Communication Ability: Effective Assistant Clinical Director Required: No Beliefs That Will Affect Care: None Current Living Situation: Alone Other Information That Helps Us Care for You: No Feels Safe at Home: Yes Safety Concerns: Feels Safe At This Time Smoking Status: Never smoker Second Hand Exposure: No ; Hx Alcohol Use: No Hx Substance Use: No Review of Systems Review of Systems: At least ten systems reviewed and negative except as noted in the HPI. Physical Exam Physical Exam: General Appearance: WD/WN, vitals as above, appears acutely ill but conversing easily Head: normocephalic, atraumatic Eyes: normal inspection, PERRL, conjunctivae normal, anicteric sclerae ENT: external ear and nose normal, oropharynx normal Neck: trachea midline, no thyromegaly, normal visual inspection Respiratory: normal respiratory effort, scattered rhonchi and wheezes on exam, no rales. Normal insp/exp effort, no accessory muscle use Cardiovascular: irregular rate & rhythm, no murmur appreciated, normal peripher al pulses. Vessels: no JVD or carotid bruit Chest: normal inspection of chest Abdomen/GI: hyperactive bowel sounds, soft, TTP of LLQ, no rebound TTP, no hepatosplenomegaly : Left inguinal bulge on palpation, soft, partially reducible Extremities/Musculoskeletal: no cyanosis or clubbing, extremities motor strength 5/5 Neurologic: PERRL, EOMI, accommodation nl, no face palsy, no dysarthria, CN's II-XI intact bilaterally and moves all extremities Psychiatric: A+Ox3, euthymic affect Skin: no rashes, normal color, warm/dry Results & Data Results & Data ([facility]) Vital Signs (Past 12 Hours) Vital Signs Temp Pulse Resp BP Pulse Ox 02/28/20 15:31 76 15 98 02/28/20 15:30 74 15 145/90 H 97 02/28/20 15:11 76 18 96 02/28/20 15:10 75 24 127/85 95 02/28/20 15:09 86 15 93 02/28/20 14:45 78 14 95 02/28/20 14:31 78 21 94 02/28/20 14:30 77 16 126/74 95 02/28/20 14:00 76 16 124/66 90 02/28/20 13:45 75 13 89 L 02/28/20 13:31 73 13 85 L 02/28/20 13:30 76 11 L 103/74 86 L 02/28/20 13:22 72 15 122/70 94 02/28/20 13:00 87 15 132/88 92 02/28/20 12:30 84 19 132/77 92 02/28/20 12:20 36.7 C 79 20 157/101 H 92 Laboratory Results Short CBC 02/28/20 Range/Units 12:49 WBC 6.83 (4.8-10.8) K/uL Hgb 13.9 L (14.0-18.0) g/dL Hct 42.4 (42-52) % Plt Count 229 (130-400) K/uL BMP 02/28/20 12:49 Sodium 138 Potassium 3.9 Chloride 105 Carbon Dioxide 25 BUN 18 Creatinine 1.03 Glucose 102 H Calcium 8.9 Cardiac Enzymes 02/28/20 Range/Units 12:49 Troponin I < 0.015 (0-0.045) ng/ml Liver Function 02/28/20 Range/Units 12:49 Total Bilirubin 0.6 (0.2-1) mg/dl AST 18 (15-37) U/L ALT 23 (12-78) U/L Alkaline Phosphatase 101 (45-117) U/L Albumin 3.3 L (3.4-5.0) gm/dl Diagnostic Findings CXR: IMPRESSION: 1. Cardiomegaly and cardiac pacemaker. There is no radiographic evidence of congestive failure. 2. No airspace consolidation or large pleural effusion is identified. CT abd/pelvis: IMPRESSION: 1. Findings are consistent with a low-grade/developing small bowel obstruction secondary to an incarcerated loop of small bowel within a left inguinal hernia. 2. No focally thick walled bowel loops are identified. There is no pneumatosis intestinalis, portal venous gas, or intraperitoneal free air. 3. Cardiomegaly and trace pleural effusions. 4. Additional findings as above. KUB: IMPRESSION: Normal study. Supervising Physician Co-Signing Physician Notes Patient is an 89-year-old male with history of atrial fibrillation, heart block s/p pacemaker, CKD stage III and other medical problems presents with history of lower abdominal pain which has been gradually worsening. Patient also states having left inguinal pain since last few months. Reports associated nausea but no vomiting. Last bowel movement was [address] abdomen suggestive of low- grade, developing small bowel obstruction secondary to an incarcerated loop of small bowel within left inguinal hernia. He was scheduled for elective inguinal hernia repair on of this month by Dr. Patterson. General surgery evaluated the patient while in ED, and thought to have reduced the inguinal hernia. Please review HPI for complete details of presentation. On exam patient is thin, frail, mild distress secondary to abdominal pain, normocephalic atraumatic, hearing impairment, coarse breath sounds, S1-S2, no murmur, no pedal edema, abdomen soft, tender predominantly left lower quadrant, voluntary guarding, grossly no focal neurological deficits. Patient is admitted for management of small bowel obstruction, incarcerated inguinal hernia. Plan for conservative management as per surgery. N.p.o., IV fluids, pain control, repeat KUB in the morning. Surgery consulted. Agree with holding Plavix for now. I personally reviewed the record. Patient is interviewed and examined at bedside. Patient's care is coordinated with Pema Lim PA-C. Please refer to the documentation above for details of patient's presentation and for discussion of other issues.
[2020-02-28] MEDS ORDERED: OXYMETAZOLINE 0.05% 30 ML BTL ONE (18:03)
[2020-02-28] MEDS ORDERED: PROMETHAZINE HCL 6.25 MG in SODIUM CHLORIDE 0.9% 50 ML IV PRN (18:24)
[2020-02-28] MEDS ORDERED: HYDROmorphone INJ 0.5 MG/0.5 ML SYR IV PRN (18:24)
[2020-02-28] MEDS: POTASSIUM CHLORIDE 10 MEQ in D5W AND 1/2NSS 1,000 ML IV SCH (19:27)
[2020-02-28] MEDS: VERAPAMIL HCL 240 MG TABCR PO SCH (20:33)
[2020-02-28 21:23] LABS: Appearance Urine Clear (Clear); Bilirubin Urine Negative (Negative); Blood Urine Negative (Negative); Color Urine Yellow; Glucose Urine UA Negative (Negative); Ketones Urine Negative (Negative); Leukocyte Esterase Urine Negative (Negative); Nitrite Urine Negative (Negative); Protein Urine Negative (Negative); Specific Gravity Urine 1.017 (1.000-1.030); Urobilinogen Urine Negative (Negative)
[2020-02-29 06:27] LABS: Hemoglobin 13.3 g/dL (14.0-18.0); Mean Corpuscular Hemoglobin 31.1 pg (25-34); Mean Corpuscular Hgb Conc 33.3 g/dL (32-36); Mean Corpuscular Volume 93.5 fL (80-100); Mean Platelet Volume 9.2 fL (7.4-10.4); Platelet Count 200 K/uL (130-400); RDW Coefficient of Variation 13.6 % (11.5-14.5); RDW Standard Deviation 46.1 fL (36.4-46.3); Red Blood Count 4.28 M/uL (4.7-6.1)
[2020-02-29 07:07] LABS: Albumin Level 2.9 gm/dl (3.4-5.0); BUN Creatinine Ratio 16.4 (10-20); Calcium 8.5 mg/dl (8.5-10.1); Creatinine Clr Calc Pharmacy 57.7 ml/min; Est GFR (African American) 72.6; Est GFR (Non-African American) 62.6; Potassium 4.2 mmol/L (3.5-5.1)
[2020-02-29 07:10] LABS: Albumin Globulin Ratio 0.8 (0.9-2); Bilirubin,Total 0.7 mg/dl (0.2-1); Globulin 3.8 gm/dl (2.5-4.0); Total Protein 6.7 gm/dl (6.4-8.2)
[2020-02-29] MEDS: POTASSIUM CHLORIDE 10 MEQ in D5W AND 1/2NSS 1,000 ML IV SCH ×2 (08:14→20:16)
[2020-02-29] MEDS: FLUTICASONE/VILANTEROL 200/25MCG 14 PUFFS/INHALER INH SCH (08:16)
--- NOTE | 2020-02-29 08:45 | XRay Report ---
XR KUB/Abdomen 1 view CLINICAL HISTORY: repeat- eval for sbo pain COMPARISON STUDY: 02/28/2020 FINDINGS: The soft tissues, psoas shadows, renal outlines and intestinal gas pattern appear normal. T here is no evidence for bowel obstruction. No abnormal abdominal calcifications are seen. IMPRESSION: Minimal nonobstructive ileus. ACT 112: Negative or not required by law. The above report was generated using voice recognition software. It may contain grammatical, syntax or spelling errors. Electronically signed by: Phi Head M.D. 02/29/2020 8:44 AM
[2020-02-29] MEDS ORDERED: LEVOTHYROXINE SODIUM 25 MCG in SYRINGE 0 ML IV SCH (09:00)
[2020-02-29] MEDS: FLUTICASONE PROPIONATE NA SPR 16 GM BTL SCH (10:46)
[2020-02-29] MEDS: IPRATROPIUM BROMIDE NEB SOLN 0.02% 2.5 ML VIAL INH PRN ×2 (11:39→19:25)
[2020-02-29] MEDS: LEVALBUTEROL 1.25MG/0.5ML NEB INH PRN ×2 (11:39→19:26)
[2020-02-29] MEDS ORDERED: POLYETHYLENE (MIRALAX) 17 GM PACK PO PRN (12:51)
--- NOTE | 2020-02-29 14:50 | Surgery Progress Note ---
Date of Service February 29, 2020 Assessment & Plan (1) Incarcerated inguinal hernia: Left inguinal hernia, now completely reducible, no pain avss KUB this am showing no signs of obstruction Plan: Saw outpatient cardiology, stopped digoxin and increased verapamil , recommended to postop open left inguinal hernia repair scheduled on 03/06/[address] Patterson No signs of incarceration on todays examination. Friday OR cancelled due to cardiology recommendations can advance to clear liquids may resume all home meds including plavix (2) SBO (small bowel obstruction): secondary to above resolved Dr. patterson has seen and examined pt, agrees with above Subjective feeling better today left groin pain has resolved no nausea or vomiting Physical Exam Constitutional: WD/WN, vitals as above not ill appearing Gastrointestinal (Abdomen): Inspection/Auscultation: abdomen normal to in spection; abdomen not distended Percussion/Palpation: abdomen soft; abdomen nontender, no guarding and abdomen not rigid Left inguinal hernia visible but easily and completely reduced upon palpation Skin: no rashes, warm and dry Psychiatric: Orientation: alert and oriented x 3 Results & Data Vital Signs (Past 12 Hours) Vital Signs Temp Pulse Pulse Resp BP Pulse Ox 02/29/20 11:40 75 20 91 02/29/20 07:29 36.8 C 84 20 101/65 91 02/29/20 03:05 89 16 94 02/29/20 02:23 88 Laboratory Results 02/29/20 02/29/20 02/28/20 Range/Units 06:10 06:10 21:08 WBC 6.80 (4.8-10.8) K/uL RBC 4.28 L (4.7-6.1) M/uL Hgb 13.3 L (14.0-18.0) g/dL Hct 40.0 L (42-52) % MCV 93.5 (80-100) fL MCH 31.1 (25-34) pg MCHC 33.3 (32-36) g/dL RDW Std Deviation 46.1 (36.4-46.3) fL RDW Coeff of Lawson 13.6 (11.5-14.5) % Plt Count 200 (130-400) K/uL MPV 9.2 (7.4-10.4) fL Sodium 139 (136-145) mmol/L Potassium 4.2 (3.5-5.1) mmol/L Chloride 105 (98-107) mmol/L Carbon Dioxide 29 (21-32) mmol/L Anion Gap 5.0 (3-11) BUN 17 (7-18) mg/dl Creatinine 1.05 (0.6-1.4) mg/dl Est Cr Clr Drug Dosing 57.7 ml/min Est GFR ( Amer) 72.6 Est GFR (Non-Af Amer) 62.6 BUN/Creatinine Ratio 16.4 (10-20) Glucose 91 (70-99) mg/dl Calcium 8.5 (8.5-10.1) mg/dl Total Bilirubin 0.7 (0.2-1) mg/dl AST 20 (15-37) U/L ALT 22 (12-78) U/L Alkaline Phosphatase 100 (45-117) U/L Total Protein 6.7 (6.4-8.2) gm/dl Albumin 2.9 L (3.4-5.0) gm/dl Globulin 3.8 (2.5-4.0) gm/dl Albumin/Globulin Ratio 0.8 L (0.9-2) Urine Color Yellow Urine Appearance Clear (Clear) Urine pH 7.0 (4.5-7.5) Ur Specific [place] 1.017 (1.000-1.030) Urine Protein Negative (Negative) Urine Glucose (UA) Negative (Negative) Urine Ketones Negative (Negative) Urine Blood Negative (Negative) Urine Nitrite Negative (Negative) Urine Bilirubin Negative (Negative) Urine Urobilinogen Negative (Negative) Ur Leukocyte Esterase Negative (Negative) COVID-19 PCR (Negative) 02/28/20 Range/Units 21:05 WBC (4.8-10.8) K/uL RBC (4.7-6.1) M/uL Hgb (14.0-18.0) g/dL Hct (42-52) % MCV (80-100) fL MCH (25-34) pg MCHC (32-36) g/dL RDW Std Deviation (36.4-46.3) fL RDW Coeff of Lawson (11.5-14.5) % Plt Count (130-400) K/uL MPV (7.4-10.4) fL Sodium (136-145) mmol/L Potassium (3.5-5.1) mmol/L Chloride (98-107) mmol/L Carbon Dioxide (21-32) mmol/L Anion Gap (3-11) BUN (7-18) mg/dl Creatinine (0.6-1.4) mg/dl Est Cr Clr Drug Dosing ml/min Est GFR ( Amer) Est GFR (Non-Af Amer) BUN/Creatinine Ratio (10-20) Glucose (70-99) mg/dl Calcium (8.5-10.1) mg/dl Total Bilirubin (0.2-1) mg/dl AST (15-37) U/L ALT (12-78) U/L Alkaline Phosphatase (45-117) U/L Total Protein (6.4-8.2) gm/dl Albumin (3.4-5.0) gm/dl Globulin (2.5-4.0) gm/dl Albumin/Globulin Ratio (0.9-2) Urine Color Urine Appearance (Clear) Urine pH (4.5-7.5) Ur Specific [place] (1.000-1.030) Urine Protein (Negative) Urine Glucose (UA) (Negative) Urine Ketones (Negative) Urine Blood (Negative) Urine Nitrite (Negative) Urine Bilirubin (Negative) Urine Urobilinogen (Negative) Ur Leukocyte Esterase (Negative) COVID-19 PCR NEGATIVE (Negative) Diagnostic Findings XR KUB/Abdomen 1 view CLINICAL HISTORY: repeat- eval for sbo pain COMPARISON STUDY: 02/28/2020 FINDINGS: The soft tissues, psoas shadows, renal outlines and intestinal gas pattern appear normal. There is no evidence for bowel obstruction. No abnormal abdominal calcifications are seen. IMPRESSION: Minimal nonobstructive ileus.
--- NOTE | 2020-02-29 18:53 | Hospitalist Progress Note ---
Date of Service February 29, 2020 Assessment & Plan (1) Incarcerated inguinal hernia: (2) SBO (small bowel obstruction): This is an 89yo M with a PMH of chronic atrial fibrillation, heart block s/p pacemaker placement in 2005, asthma, bronchiectasis, MARU on CPAP, CKD III, inguinal hernia and other medical problems listed below who presents with lower abdominal pain CT abdomen showed findings are consistent with a low-grade/developing small bowel obstruction secondary to an incarcerated loop of small bowel within a left inguinal hernia. Surgery on board KUB done today showed minimal nonobstructive ileus. Saw cardiology outpatient that recommended to postpone elective left inguinal hernia repair scheduled on 03/06/[address] Patterson due to high risk Left inguinal hernia was reducible and currently denies any pain Continue conservative management as per surgery starting on clear liquid, will advance as tolerated Continue gentle IV hydration and pain control prn Continue monitor closely (3) Chronic atrial fibrillation: Continue recently increased verapamil dose Rate control Anticoagulation contraindicated due to recurrent hematoma Will resume plavix (4) COPD (chronic obstructive pulmonary disease) case management patient: Continue home inhalers and neb treatments PRN (5) Heart block: S/p pacemaker placement. Normal interrogation (6) CKD (chronic kidney disease) stage 3, GFR 30-59 ml/min: Stable Continue monitor (7) MARU on CPAP: CPAP + 3L O2 HS and supplemental O2 PRN during day in setting of COPD (8) BPH (benign prostatic hypertrophy): Will resume alfuzosin and finasteride Stable DVT Ppx: SCDs Code status: FULL PCP: Sally Banda Dispo: Will discharge once medical stable as per surgery Admission and Anticipated Discharge Date Admission Date: February 28, 2020 Subjective Pt was seen and examined Lying in bed with no distress Pt said that his abdominal pain improves He said that his hungry Denies any chest pain, palpitation, dizziness and SOB Physical Exam Physical Exam: General- No acute distress Head- atraumatic Eyes- PERRL, EOMI, ENT- oropharynx clear Neck- supple, no JVD Lungs- + Rhonchi Heart- no murmur Abdomen- normal bowel sounds, soft, nondistended, +Left inguinal hernia visible Extremities- no calf tenderness Neuro- alert, oriented x 3; PERRL, EOMI; no facial palsy; no dysarthria Skin- warm & dry Results & Data Results & Data ([facility]) Vital Signs (Past 12 Hours) Vital Signs Temp Pulse Pulse Resp BP Pulse Ox 02/29/20 15:19 37.1 C 67 20 106/69 95 02/29/20 15:00 77 02/29/20 11:40 75 20 91 02/29/20 07:29 36.8 C 84 20 101/65 91
[2020-02-29] MEDS: IPRATROPIUM BROMIDE NEB SOLN 0.02% 2.5 ML VIAL INH SCH (20:11)
[2020-02-29] MEDS: LEVALBUTEROL 1.25MG/0.5ML NEB INH SCH (20:12)
[2020-02-29] MEDS: MONTELUKAST SODIUM 10 MG TABLET PO SCH (20:17)
[2020-02-29] MEDS: PANTOprazole 40 MG TAB PO SCH (20:17)
[2020-02-29] MEDS: VERAPAMIL HCL 240 MG TABCR PO SCH (20:17)
[2020-02-29] MEDS: ALFUZOSIN HCL 10 MG TAB PO SCH (20:17)
[2020-02-29] MEDS: DOCUSATE SODIUM 100 MG CAP PO PRN (20:23)
[2020-03-01] MEDS: LEVOTHYROXINE SODIUM 50 MCG TABLET PO SCH (05:24)
[2020-03-01] MEDS: IPRATROPIUM BROMIDE NEB SOLN 0.02% 2.5 ML VIAL INH SCH ×3 (07:30→19:48)
[2020-03-01] MEDS: LEVALBUTEROL 1.25MG/0.5ML NEB INH SCH ×3 (07:30→19:48)
[2020-03-01] MEDS: FLUTICASONE/VILANTEROL 200/25MCG 14 PUFFS/INHALER INH SCH (08:09)
[2020-03-01] MEDS: PANTOprazole 40 MG TAB PO SCH ×2 (08:10→20:25)
[2020-03-01] MEDS: FINASTERIDE 5 MG TAB PO SCH (08:10)
[2020-03-01] MEDS: CLOPIDOGREL BISULFATE 75 MG TAB PO SCH (08:10)
[2020-03-01] MEDS: FLUTICASONE PROPIONATE NA SPR 16 GM BTL SCH (08:12)
[2020-03-01 09:34] LABS: Hematocrit (blood only) 44.3 % (42-52); Hemoglobin 15.1 g/dL (14.0-18.0); Mean Corpuscular Hemoglobin 31.8 pg (25-34); Mean Corpuscular Hgb Conc 34.1 g/dL (32-36); Mean Corpuscular Volume 93.3 fL (80-100); Mean Platelet Volume 9.3 fL (7.4-10.4); Platelet Count 213 K/uL (130-400); RDW Coefficient of Variation 13.3 % (11.5-14.5); RDW Standard Deviation 45.5 fL (36.4-46.3); Red Blood Count 4.75 M/uL (4.7-6.1); White Blood Count 6.94 K/uL (4.8-10.8)
[2020-03-01 10:13] LABS: Albumin Level 3.3 gm/dl (3.4-5.0); BUN Creatinine Ratio 10.5 (10-20); Calcium 8.7 mg/dl (8.5-10.1); Est GFR (African American) 63.7; Est GFR (Non-African American) 54.9; Potassium 3.5 mmol/L (3.5-5.1)
[2020-03-01 10:17] LABS: Albumin Globulin Ratio 0.7 (0.9-2); Bilirubin,Total 1.1 mg/dl (0.2-1); Globulin 4.6 gm/dl (2.5-4.0); Total Protein 7.9 gm/dl (6.4-8.2)
--- NOTE | 2020-03-01 11:46 | Hospitalist Progress Note ---
Date of Service March 01, 2020 Assessment & Plan (1) SBO (small bowel obstruction): -This is an 89yo M with a PMH of chronic atrial fibrillation, heart block s/p pacemaker placement in 2005, asthma, bronchiectasis, MARU on CPAP, CKD III, inguinal hernia and other medical problems listed below who presents with lower abdominal pain -CT abdomen showed findings are consistent with a low-grade/developing small bowel obstruction secondary to an incarcerated loop of small bowel within a left inguinal hernia. -Patient had IV fluids and clear liquid diet on this admission with general surgery following the patient with conservative management of symptoms -03/01/2020 updates. Patient denies abdominal pain since Friday02/28/2020. Patient reports 2 bowel movements in AM of 03/01/2020. There is no pain of groin where patient has hernia. will advance from clear liquid to full liquid diet. Miralax as needed if future constipation, started senna daily (2) Incarcerated inguinal hernia: -as of 02/29/2020 general surgery evaluation " Left inguinal hernia, now completely reducible, no pain. KUB this am showing no signs of obstruction" (3) Chronic atrial fibrillation: -Continue verapamil dose -on plavix -Anticoagulation contraindicated due to recurrent hematoma (4) Heart block: -has pacemaker with recent Normal interrogation (5) COPD (chronic obstructive pulmonary disease) case management patient: -Continue home inhalers and neb treatments PRN (6) MARU on CPAP: -CPAP + 3L O2 HS and supplemental O2 PRN during day in setting of COPD (7) CKD (chronic kidney disease) stage 3, GFR 30-59 ml/min: -Stable (8) BPH (benign prostatic hypertrophy): - on alfuzosin and finasteride DVT Ppx: SCDs Code status: FULL Admission and Anticipated Discharge Date Admission Date: February 28, 2020 Subjective Patient denies abdominal pain since Friday02/28/2020. Patient reports 2 bowel movements in AM of 03/01/2020. There is no pain of groin where patient has hernia. no chest pain, no palpitations, no shortness of breath, no dizziness. no headache. Review of Systems Review of Systems: All systems reviewed & are unremarkable except as noted in Subjective Physical Exam Constitutional: comfortable Eyes: PERRL, conjunctivae normal, anicteric sclerae EOM intact bilaterally ENMT: external ear and nose normal, oropharynx normal Neck: trachea midline, no thyromegaly normal visual inspection Respiratory: normal respiratory effort, lungs clear to auscultation Cardiovascular: Rate/Rhythm: regular rate Gastrointestinal (Abdomen): normal bowel sounds, soft, nontender, no hepatosplenomegaly (hernia left groin) Musculoskeletal: Head/Neck/Chest: normocephalic and head atraumatic Neurologic: PERRL, EOMI, accommodation nl, no face palsy, no dysarthria CN's II-XI intact bilaterally Psychiatric: A+Ox3, euthymic affect Results & Data Results & Data ([facility]) Vital Signs (Past 12 Hours) Vital Signs Temp Pulse Resp BP BP Pulse Ox 03/01/20 11:11 36.4 C L 79 18 117/80 95 03/01/20 07:35 91 H 20 92 03/01/20 06:57 36.4 C L 80 20 110/71 93 03/01/20 03:43 36.7 C 75 20 100/56 L 92
[2020-03-01] MEDS: SENNA 8.6 MG TAB PO SCH (13:25)
[2020-03-01] MEDS ORDERED: POTASSIUM CHLORIDE 20 MEQ TABCR PO STA (18:32)
[2020-03-01] MEDS: MONTELUKAST SODIUM 10 MG TABLET PO SCH (20:25)
[2020-03-01] MEDS: VERAPAMIL HCL 240 MG TABCR PO SCH (20:25)
[2020-03-01] MEDS: ALFUZOSIN HCL 10 MG TAB PO SCH (20:25)
[2020-03-01] MEDS: DOCUSATE SODIUM 100 MG CAP PO PRN (20:28)
[2020-03-01] MEDS: guaiFENesin 600 MG TABCR PO PRN (21:34)
[2020-03-02] MEDS: LEVOTHYROXINE SODIUM 50 MCG TABLET PO SCH (05:49)
[2020-03-02] MEDS: LEVALBUTEROL 1.25MG/0.5ML NEB INH SCH (07:05)
[2020-03-02] MEDS: IPRATROPIUM BROMIDE NEB SOLN 0.02% 2.5 ML VIAL INH SCH (07:05)
[2020-03-02] MEDS: SENNA 8.6 MG TAB PO SCH (08:17)
[2020-03-02] MEDS: guaiFENesin 600 MG TABCR PO PRN (08:17)
[2020-03-02] MEDS: FINASTERIDE 5 MG TAB PO SCH (08:17)
[2020-03-02] MEDS: FLUTICASONE/VILANTEROL 200/25MCG 14 PUFFS/INHALER INH SCH (08:18)
[2020-03-02] MEDS: CLOPIDOGREL BISULFATE 75 MG TAB PO SCH (08:18)
[2020-03-02] MEDS: PANTOprazole 40 MG TAB PO SCH (08:18)
[2020-03-02] MEDS: FLUTICASONE PROPIONATE NA SPR 16 GM BTL SCH (08:19)
--- NOTE | 2020-03-02 10:30 | Hospitalist Progress Note ---
Date of Service March 02, 2020 Assessment & Plan (1) SBO (small bowel obstruction): -This is an 89yo M with a PMH of chronic atrial fibrillation, heart block s/p pacemaker placement in 2005, asthma, bronchiectasis, MARU on CPAP, CKD III, inguinal hernia and other medical problems listed below who presents with lower abdominal pain -CT abdomen showed findings are consistent with a low-grade/developing small bowel obstruction secondary to an incarcerated loop of small bowel within a left inguinal hernia. -Patient had IV fluids and clear liquid diet on this admission with general surgery following the patient with conservative management of symptoms -03/01/2020 updates. Patient denies abdominal pain since Friday02/28/2020. Patient reports 2 bowel movements in AM of 03/01/2020. There is no pain of groin where patient has hernia. will advance from clear liquid to full liquid diet. Miralax as needed if future constipation, given senna -03/02/2020: patient continues to be able to make bowel movements and continues to deny any abdomen or groin pain. patient tolerated the solid diet. Discussed plans of patient to be discharged to home. (2) Incarcerated inguinal hernia: -as of 02/29/2020 general surgery evaluation " Left inguinal hernia, now c ompletely reducible, no pain. KUB this am showing no signs of obstruction" (3) Chronic atrial fibrillation: -Continue verapamil dose -on plavix -Anticoagulation contraindicated due to recurrent hematoma (4) Heart block: -has pacemaker with recent Normal interrogation (5) COPD (chronic obstructive pulmonary disease) case management patient: -Continue home inhalers (6) MARU on CPAP: -CPAP + 3L O2 HS and supplemental O2 PRN during day in setting of COPD (7) CKD (chronic kidney disease) stage 3, GFR 30-59 ml/min: -Stable (8) BPH (benign prostatic hypertrophy): - on alfuzosin and finasteride DVT Ppx: SCDs Code status: FULL Admission and Anticipated Discharge Date Admission Date: February 28, 2020 Subjective patient continues to be able to make bowel movements and continues to deny any abdomen or groin pain. patient tolerated the solid diet. Discussed plans of patient to be discharged to home. no dizziness. no headache. no chest pain. no palpitations. no shortness of breath. no nausea. no vomiting Review of Systems Review of Systems: All systems reviewed & are unremarkable except as noted in Subjective Physical Exam Constitutional: comfortable Eyes: PERRL, conjunctivae normal, anicteric sclerae EOM intact bilaterally ENMT: external ear and nose normal, oropharynx normal Neck: trachea midline, no thyromegaly normal visual inspection Respiratory: normal respiratory effort, lungs clear to auscultation Cardiovascular: Rate/Rhythm: regular rate Gastrointestinal (Abdomen): normal bowel sounds, soft, nontender, no hepatosplenomegaly (hernia left groin) Musculoskeletal: Head/Neck/Chest: normocephalic and head atraumatic Neurologic: PERRL, EOMI, accommodation nl, no face palsy, no dysarthria CN's II-XI intact bilaterally Psychiatric: A+Ox3, euthymic affect Results & Data Results & Data ([facility]) Vital Signs (Past 12 Hours) Vital Signs Temp Pulse Resp BP Pulse Ox 03/02/20 07:16 36.6 C 69 20 114/75 93 03/02/20 07:05 72 20 94 03/02/20 04:06 36.5 C 68 21 102/65 92
--- NOTE | 2020-03-02 10:33 | Discharge Summary ---
Date of Service March 02, 2020 Admission HPI Per Admitting Provider This is an 89yo M with a PMH of chronic atrial fibrillation, heart block s/p pacemaker placement in 2006, asthma, bronchiectasis, MARU on CPAP, CKD III, inguinal hernia and other medical problems listed below who presents with lower abdominal pain. Endorses pain over the past few months in the left inguinal region that waxed and waned. Starting yesterday morning, patient developed worsened constant pain in left groin area associated with nausea and chills. Denies any fever or vomiting. Last bowel movement was 2 days ago. Has had inguinal hernia for the past few months and stated that he would see a bulge some of the time and then it would resolve spontaneously. Has been evaluated by Dr. Patterson of [facility] general surgery for inguinal hernia repair with CT scan demonstrating a small inguinal hernia. Also has left lower quadrant/suprapubic pain that occurs intermittently. 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 Endorses a [address] Patterson does not feel that all abdominal symptoms are related to hernia but does have tentative surgical date of 03/06/2020 for hernia repair. Saw JJ Fabian of cardiology for surgical clearance and was determined to be high risk. Digoxin was discontinued due to possible GI side effects in attempt to medically manage GI symptoms without surgery and verapamil dose was increased. This change was made 3 days ago. Currently patient endorsing 6/10 left inguinal pain with associated nausea. Denies fever, headache, lightheadedness, visual changes, chest pain, palpitations, shortness of breath, vomiting, dysuria or diarrhea. Vital signs are stable. No leukocytosis. CT abd/pelvis findings are consistent with a low-grade/developing small bowel obstruction secondary to an incarcerated loop of small bowel within a left inguinal hernia. No focally thick walled bowel loops are identified. There is no pneumatosis intestinalis, portal venous gas, or intraperitoneal free air. Dr. Bush of general surgery evaluated patient in ED and felt hernia was reducible on exam. Ordered KUB at this time, which was a normal study without bowel obstruction. Plan for conservative treatment overnight with patient n.p.o., IV fluids and repeat labs in a.m. Principal Diagnosis SBO (small bowel obstruction) (resolved) Incarcerated inguinal hernia (resolved) CKD (chronic kidney disease) stage 3, GFR 30-59 ml/min Chronic atrial fibrillation, has pacemaker Discharge Exam Constitutional comfortable Eyes PERRL, conjunctivae normal, anicteric sclerae EOM intact bilaterally ENMT external ear and nose normal, oropharynx normal Neck trachea midline, no thyromegaly normal visual inspection Respiratory normal respiratory effort, lungs clear to auscultation Cardiovascular Rate/Rhythm: regular rate Gastrointestinal (Abdomen) normal bowel sounds, soft, nontender, no hepatosplenomegaly (hernia left groin) Musculoskeletal Head/Neck/Chest: normocephalic and head atraumatic Neurologic PERRL, EOMI, accommodation nl, no face palsy, no dysarthria CN's II-XI intact bilaterally Psychiatric A+Ox3, euthymic affect Discharge Data Allergies Allergy/AdvReac Type Severity Reaction Status Date / Time aspirin Allergy Severe TIGHTNESS Verified 02/28/20 12:57 IN CHEST NSAIDS (Non-Steroidal Allergy Severe TIGHTNESS Verified 02/28/20 12:57 Anti-Inflamma IN THE CHEST rofecoxib Allergy Severe TIGHTNESS Verified 02/28/20 12:57 IN CHEST ibuprofen Allergy Intermediate Asthma Verified 02/28/20 12:57 Symptoms Consultations 02/28/20 16:09 ED Decision to Admit Stat 02/28/20 18:05 Consult General Surgery Routine 02/28/20 18:24 Consult Case Management - Discharge Planning Routine Ordered Studies 02/28/20 12:31 CT abd pelvis wo con Stat Hospital Course (1) SBO (small bowel obstruction): -This is an 89yo M with a PMH of chronic atrial fibrillation, heart block s/p pacemaker placement in 2005, asthma, bronchiectasis, MARU on CPAP, CKD III, inguinal hernia and other medical problems listed below who presents with lower abdominal pain -CT abdomen showed findings are consistent with a low-grade/developing small bowel obstruction secondary to an incarcerated loop of small bowel within a left inguinal hernia. -Patient had IV fluids and clear liquid diet on this admission with general surgery following the patient with conservative management of symptoms -03/01/2020 updates. Patient denies abdominal pain since Friday02/28/2020. Patient reports 2 bowel movements in AM of 03/01/2020. There is no pain of groin where patient has hernia. will advance from clear liquid to full liquid diet. Miralax as needed if future constipation, given senna -03/02/2020: patient continues to be able to make bowel movements and continues to deny any abdomen or groin pain. patient tolerated the solid diet. Discussed plans of patient to be discharged to home. (2) Incarcerated inguinal hernia: -as of 02/29/2020 general surgery evaluation " Left inguinal hernia, now completely reducible, no pain. KUB this am showing no signs of obstruction" (3) Chronic atrial fibrillation: -Continue verapamil dose -on plavix -Anticoagulation contraindicated due to recurrent hematoma (4) Heart block: -has pacemaker with recent Normal interrogation (5) COPD (chronic obstructive pulmonary disease) case management patient: -Continue home inhalers (6) MARU on CPAP: -CPAP + 3L O2 HS and supplemental O2 PRN during day in setting of COPD (7) CKD (chronic kidney disease) stage 3, GFR 30-59 ml/min: -Stable (8) BPH (benign prostatic hypertrophy): - on alfuzosin and finasteride DVT Ppx: SCDs Code status: FULL Total Time Total Time Spent Total Time Spent (In Minutes): 40 minutes Total Time Includes: Examination of the Patient, Discharge Planning, Medication Reconciliation and Communication With Other Providers Discharge Plan Discharge Items Patient Disposition: Home - Self-Care Reason For Visit: INCARCERATED HERNIA,LOW GRADE SBO Discharge Diagnosis: SBO (small bowel obstruction) (resolved) Incarcerated inguinal hernia (resolved) CKD (chronic kidney disease) stage 3, GFR 30-59 ml/min Chronic atrial fibrillation, has pacemaker Condition on Discharge: Good Activity: Resume your previous activity Non-emergency contact: Primary Care Provider Call non-emergency contact if: you have any medication questions Follow-up/Referrals: Dionte Banda DO [Primary Care Provider] - Diet: Regular Addtl Attending Provider Instructions: 03/08/2020 11:20 AM Provider Dionte Banda DO Department [facility] 03/24/2020 4:00 PM Provider DO Tayo Scott [facility] 05/30/2020 2:00 PM Provider [facility] Department Cardiology [facility] 07/05/2020 2:15 PM Provider Leydi Lewis MD Department Dermatology [facility] Pending Studies at Discharge: No Stand-Alone Forms: My [facility], Smoking Cessation Medications and DC Order Prescriptions: Continued ipratropium bromide 0.02 % solution See Rx Instructions .ROUTE .COMPLEX Qty: 300 RF: 5 Symbicort 160-4.5 mcg/actuation HFA aerosol inhaler 2 puffs INH BID Qty: 10.2 RF: 2 levalbuterol tartrate [Xopenex HFA] 45 mcg/actuation HFA aerosol inhaler 2 puff Inhalation Q8H PRN (Reason: Wheezing) Qty: 15 RF: 5 pantoprazole 40 mg tablet,delayed release (DR/EC) 40 mg PO BID Qty: 60 RF: 5 alfuzosin 10 mg tablet extended release 24 hr 10 mg PO HS RF: 0 montelukast [Singulair] 10 mg Tablet 10 mg PO HS RF: 0 guaifenesin 600 mg Tablet Extended Release 12hr 600 mg PO Q12H PRN (Reason: Cough) RF: 0 multivitamin [Multiple Vitamins] Tablet 1 tab PO QAM RF: 0 polyethylene glycol 3350 [Miralax] 17 gram/dose Powder 17 g PO DAILY PRN (Reason: Constipation) RF: 0 finasteride 5 mg Tablet 5 mg PO QAM RF: 0 clopidogrel [Plavix] 75 mg Tablet 75 mg PO QAM RF: 0 flunisolide 25 mcg (0.025 %) [place],Non-Aerosol 2 spray INTRANASAL BID RF: 0 Calcium 600 + D(3) 600 mg calcium- 200 unit Capsule 1 tab PO BID RF: 0 loratadine 10 mg Tablet 10 mg PO QAM RF: 0 azithromycin 250 mg tablet 250 mg PO UD RF: 0 prednisone 20 mg tablet 20 mg PO UD RF: 0 levothyroxine 50 mcg tablet 50 mcg PO QAM RF: 0 docusate sodium 100 mg Capsule 100 mg PO BID PRN (Reason: Constipation) RF: 0 verapamil 240 mg tablet extended release 240 mg PO HS RF: 0 diclofenac sodium 1 % gel 2 g TOPICAL QID PRN (Reason: Pain) RF: 0 levalbuterol HCl 1.25 mg/0.5 mL solution for nebulization 1.25 mg INH Q6H PRN (Reason: Shortness Of Breath Or Wheezing) RF: 0 Discontinued acetaminophen [Tylenol Extra Strength] 500 mg Tablet 1,000 mg PO Q4H PRN (Reason: Pain) RF: 0 Discharge Orders: Discharge Order (Routine); Ordered 03/02/20 Ordered By: Janusz Castillo Admission Data Admit Date/Time: 02/28/20 16:29 Attending Provider: Janusz Castillo Admit Provider: Jose Elias Morse Primary Care Provider: Dionte Banda Other Providers: Jose Elias Morse ; Olegario uBsh
== END 2020-03-02 12:45 | disposition home or self-care (01) | DRG 394 ==
LOC: ED 12:12 → 2W 16:29 → SUATTDRO 16:29 → 2W 17:54

== ENCOUNTER 2020-07-22 16:20 | Inpatient (IN) ==
[2020-07-22] MEDS ORDERED: fentaNYL citrate 100 MCG/2 ML VIAL IV STA (16:28)
--- NOTE | 2020-07-22 16:34 | Emergency Department Note ---
History of Present Illness General Chief complaint: Abdominal Pain Stated complaint: AB PAIN Time Seen by Provider: 07/22/20 16:21 Source: patient History of Present Illness Provider complaint: Lower abdominal pain Onset (ago): day(s) 2 Location: abdomen Radiation: non-radiation Severity: severe Pain Consistency: + constant Maximum Pain Intensity: 10 Quality: + other (Pressure) Relieved By: + none Associated symptoms: + nausea/vomiting (Nausea no vomiting); no chest pain, no cough, no fever/chills and no shortness of breath This is an 89-year-old male who presents with lower abdominal pain for the past 2 days. He describes it as a pressure. The pain got worse this morning and he currently rates it a 10 out of 10 in severity. No alleviating factors. He did receive 50 of IV fentanyl and 4 Zofran prior to arrival. He complains of associated nausea but no vomiting. He states he has not had a bowel movement in 2 days. He does have a known inguinal hernia on the left side but was told that he is to high risk for operative repair. He denies any fever, chest pain, shortness of breath, urinary symptoms or known exposure to COVID-19. Home Medications Home Medications Medication Instructions Recorded Confirmed Type Calcium 600 + D(3) 1 tab PO BID 06/02/18 04/04/20 History clopidogrel [Plavix] 75 mg PO QAM 06/02/18 04/04/20 History finasteride 5 mg PO QAM 06/02/18 04/04/20 History flunisolide 2 spray INTRANASAL BID 06/02/18 04/04/20 History loratadine 10 mg PO QAM 06/02/18 04/04/20 History montelukast [Singulair] 10 mg PO HS 06/02/18 04/04/20 History multivitamin [Multiple Vitamins] 1 tab PO QAM 06/02/18 04/04/20 History alfuzosin 10 mg tablet,extended 10 mg PO HS 06/02/19 04/04/20 History release 24 hr budesonide-formoterol HFA 160 2 puffs INH BID #10.2 gm 07/01/19 04/04/20 Rx mcg-4.5 mcg/actuation aerosol inhaler levalbuterol tartrate 45 2 puff INHALATION Q8H PRN #15 gm 09/17/19 04/04/20 Rx mcg/actuation aerosol inhaler diclofenac sodium 2 g TOPICAL QID PRN 02/28/20 04/04/20 History docusate sodium 100 mg PO BID PRN 02/28/20 04/04/20 History levothyroxine 50 mcg PO QAM 02/28/20 04/04/20 History verapamil 240 mg PO HS 02/28/20 04/04/20 History ipratropium bromide 0.02 % See Rx Instructions .ROUTE 03/22/20 04/04/20 Rx solution for inhalation .COMPLEX #300 milliliter levalbuterol HCl 1.25 mg/0.5 mL 1.25 mg INH Q6H PRN #180 vial 03/24/20 04/04/20 Rx solution for nebulization pantoprazole 40 mg tablet,delayed 40 mg PO BID #60 tab 05/29/20 Rx release sodium chloride 7 % for 4 ml INH BID #720 ml 06/06/20 Rx nebulization Allergies Allergy/AdvReac Type Severity Reaction Status Date / Time aspirin Allergy Severe TIGHTNESS Verified 04/04/20 15:14 IN CHEST NSAIDS (Non-Steroidal Allergy Severe TIGHTNESS Verified 04/04/20 15:14 Anti-Inflamma IN THE CHEST rofecoxib Allergy Severe TIGHTNESS Verified 04/04/20 15:14 IN CHEST ibuprofen Allergy Intermediate Asthma Verified 04/04/20 15:14 Symptoms Past Med/Surg History Medical History Asthma Atrial fibrillation BPH (benign prostatic hyperplasia) Chronic kidney disease GERD (gastroesophageal reflux disease) On home oxygen therapy MARU on CPAP Pacemaker HX OF SYMPTOMATIC BRADYCARDIA WITH PAUSES Transient ischemic attack (TIA) 20+ YEARS AGO, NO RESIDUAL. 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 and A total of 10 systems reviewed and were otherwise negative Physical Exam Vital Signs Vital Signs - 24 hr 07/22/20 16:06 07/22/20 16:26 07/22/20 16:31 Temperature 36.5 C Temperature Source Oral Pulse Rate 106 H 97 H 102 H Pulse Rate [Bilateral Apical] Pulse Rate from SpO2 Sensor 92 H 97 H Pulse Rhythm Regular Pulse Strength Normal Respiratory Rate 16 28 H 31 H Respiratory Depth Normal Respiratory Pattern Regular Blood Pressure 112/88 112/88 Blood Pressure [Left Arm] Blood Pressure Mean 96 92 Blood Pressure Mean [Left Arm] Blood Pressure Position Sitting Pulse Oximetry 93 94 92 Oxygen Delivery Method Room Air Sepsis Recent Fever Within 48 Hours No Sepsis New/Unexplained Change in Mental Status N/A Sepsis Action Taken by Nursing No Action Required 07/22/20 17:00 07/22/20 17:35 07/22/20 18:00 Temperature Temperature Source Pulse Rate 103 H 110 H Pulse Rate [Bilateral Apical] Pulse Rate from SpO2 Sensor 81 Pulse Rhythm Pulse Strength Respiratory Rate 17 13 15 Respiratory Depth Respiratory Pattern Blood Pressure Blood Pressure [Left Arm] Blood Pressure Mean Blood Pressure Mean [Left Arm] Blood Pressure Position Pulse Oximetry Oxygen Delivery Method Sepsis Recent Fever Within 48 Hours Sepsis New/Unexplained Change in Mental Status Sepsis Action Taken by Nursing 07/22/20 18:30 07/22/20 19:03 Temperature Temperature Source Pulse Rate Pulse Rate [Bilateral Apical] 115 H Pulse Rate from SpO2 Sensor Pulse Rhythm Pulse Strength Respiratory Rate 20 20 Respiratory Depth Respiratory Pattern Blood Pressure Blood Pressure [Left Arm] 113/78 Blood Pressure Mean Blood Pressure Mean [Left Arm] 89 Blood Pressure Position Pulse Oximetry 93 Oxygen Delivery Method Room Air Sepsis Recent Fever Within 48 Hours Sepsis New/Unexplained Change in Mental Status Sepsis Action Taken by Nursing Constitutional: Vital signs reviewed. Eyes: Pupils are equal round reactive to light. Conjunctiva are noninjected. ENT: Pharynx is clear without erythema or exudate. Mucous membranes are moist. Respiratory: Clear to auscultation bilaterally. Breath sounds are equal bilaterally. Cardiovascular: Regular rate and rhythm. No rubs or gallops. GI: Diffuse tenderness in the lower abdomen. He does have an orange-sized left inguinal hernia which is not reducible. Bowel sounds are present. Musculoskeletal: No peripheral edema. No lower extremity tenderness. Integumentary: No cyanosis. or jaundice. Neurological: The patient is awake and alert. Hard of hearing. Psychiatric: Normal affect. Not anxious appearing. Course Administered Medications Discontinued Medications Fentanyl Citrate (Fentanyl Citrate 100 Mcg/2 Ml Vial) 50 mcg IV NOW STA Stop: 07/22/20 16:29 Last Admin: 07/22/20 16:44 Dose: 50 mcg Documented by: [id number] Medical Decision Making Differential Diagnosis Incarcerated inguinal hernia, bowel strangulation, small bowel obstruction, constipation, fecal impaction Medical Records Attestation: I reviewed the patient's medical records. The patient was admitted to the hospital for a small bowel obstruction secondary to an incarcerated left inguinal hernia. The hernia reduced spontaneously and he was treated conservatively. Home Medications Current Medication List: was personally reviewed by me Laboratory Data Attestation: I reviewed the patient's lab results. Result diagrams: 07/22/20 16:30 07/22/20 17:07 Lab Results 07/22/20 07/22/20 07/22/20 Range/Units 16:30 16:30 16:30 WBC 10.64 (4.8-10.8) K/uL RBC 5.02 (4.7-6.1) M/uL Hgb 15.6 (14.0-18.0) g/dL Hct 45.5 (42-52) % MCV 90.6 (80-100) fL MCH 31.1 (25-34) pg MCHC 34.3 (32-36) g/dL RDW Std Deviation 44.1 (36.4-46.3) fL RDW Coeff of Lawson 13.4 (11.5-14.5) % Plt Count 226 (130-400) K/uL MPV 10.0 (7.4-10.4) fL Immature Gran % (Auto) 0.3 % Neut % (Auto) 70.8 % Lymph % (Auto) 15.9 % [place] % (Auto) 7.9 % Eos % (Auto) 4.9 % Baso % (Auto) 0.2 % Neut # (Auto) 7.54 H (1.4-6.5) K/uL Lymph # (Auto) 1.69 (1.2-3.4) K/uL [place] # (Auto) 0.84 H (0.11-0.59) K/uL Eos # (Auto) 0.52 H (0-0.5) K/uL Baso # (Auto) 0.02 (0-0.2) K/uL Immature Gran # (Auto) 0.03 H (0.00-0.02) K/uL PT Cancelled INR Cancelled APTT Cancelled PTT Ratio Cancelled Sodium Cancelled Potassium Cancelled Chloride Cancelled Carbon Dioxide Cancelled Anion Gap Cancelled BUN Cancelled Creatinine Cancelled Est Cr Clr Drug Dosing Cancelled Est GFR ( Amer) Cancelled Est GFR (Non-Af Amer) Cancelled BUN/Creatinine Ratio Cancelled Glucose Cancelled Lactate (0.4-2.0) mmol/L Calcium Cancelled Total Bilirubin Cancelled AST Cancelled ALT Cancelled Alkaline Phosphatase Cancelled Total Protein Cancelled Albumin Cancelled Globulin Cancelled Albumin/Globulin Ratio Cancelled Lipase Cancelled COVID-19 Eval Order SARS-CoV-2, RNA, NAAT (NEGATIVE) 07/22/20 07/22/20 07/22/20 Range/Units 16:34 16:34 16:56 WBC (4.8-10.8) K/uL RBC (4.7-6.1) M/uL Hgb (14.0-18.0) g/dL Hct (42-52) % MCV (80-100) fL MCH (25-34) pg MCHC (32-36) g/dL RDW Std Deviation (36.4-46.3) fL RDW Coeff of Lawson (11.5-14.5) % Plt Count (130-400) K/uL MPV (7.4-10.4) fL Immature Gran % (Auto) % Neut % (Auto) % Lymph % (Auto) % [place] % (Auto) % Eos % (Auto) % Baso % (Auto) % Neut # (Auto) (1.4-6.5) K/uL Lymph # (Auto) (1.2-3.4) K/uL [place] # (Auto) (0.11-0.59) K/uL Eos # (Auto) (0-0.5) K/uL Baso # (Auto) (0-0.2) K/uL Immature Gran # (Auto) (0.00-0.02) K/uL PT INR APTT PTT Ratio Sodium Potassium Chloride Carbon Dioxide Anion Gap BUN Creatinine Est Cr Clr Drug Dosing Est GFR ( Amer) Est GFR (Non-Af Amer) BUN/Creatinine Ratio Glucose Lactate 1.3 (0.4-2.0) mmol/L Calcium Total Bilirubin AST ALT Alkaline Phosphatase Total Protein Albumin Globulin Albumin/Globulin Ratio Lipase COVID-19 Eval [facility] SARS-CoV-2, RNA, NAAT NEGATIVE (NEGATIVE) 07/22/20 07/22/20 Range/Units 17:07 17:07 WBC (4.8-10.8) K/uL RBC (4.7-6.1) M/uL Hgb (14.0-18.0) g/dL Hct (42-52) % MCV (80-100) fL MCH (25-34) pg MCHC (32-36) g/dL RDW Std Deviation (36.4-46.3) fL RDW Coeff of Lawson (11.5-14.5) % Plt Count (130-400) K/uL MPV (7.4-10.4) fL Immature Gran % (Auto) % Neut % (Auto) % Lymph % (Auto) % [place] % (Auto) % Eos % (Auto) % Baso % (Auto) % Neut # (Auto) (1.4-6.5) K/uL Lymph # (Auto) (1.2-3.4) K/uL [place] # (Auto) (0.11-0.59) K/uL Eos # (Auto) (0-0.5) K/uL Baso # (Auto) (0-0.2) K/uL Immature Gran # (Auto) (0.00-0.02) K/uL PT 11.4 INR 1.1 APTT 30.1 PTT Ratio 1.1 Sodium 136 Potassium 4.1 Chloride 105 Carbon Dioxide 27 Anion Gap 4.0 BUN 21 H Creatinine 1.03 Est Cr Clr Drug Dosing 61.3 Est GFR ( Amer) 74.3 Est GFR (Non-Af Amer) 64.1 BUN/Creatinine Ratio 20.4 H Glucose 91 Lactate (0.4-2.0) mmol/L Calcium 8.6 Total Bilirubin 1.1 H AST 18 ALT 21 Alkaline Phosphatase 86 Total Protein 7.1 Albumin 3.1 L Globulin 4.0 Albumin/Globulin Ratio 0.8 L Lipase 121 COVID-19 Eval Order SARS-CoV-2, RNA, NAAT (NEGATIVE) Imaging Data Radiologist's Impression: ABDOMEN AND PELVIS CT WITHOUT CONTRAST CT DOSE: 631.89 mGy.cm HISTORY: Lower abdominal pain and left hernia eval for SBO TECHNIQUE: Multiaxial CT images of the abdomen and pelvis were performed without contrast. A dose lowering technique was utilized adhering to the principles of ALARA. COMPARISON STUDY: Abdomen and pelvis CT 02/28/2020. FINDINGS: Interstitial thickening at the lung bases is likely chronic. There is partial opacification of the right lower lobe bronchi with a small focal area of consolidation within the right lung base posteriorly. This could be seen in the setting of aspiration pneumonia. No pneumoperitoneum. No pneumatosis. No suspicious lytic or blastic osseous lesions. Mildly distended and fluid-filled esophagus. The stomach and majority of the small bowel is also mildly distended and fluid-filled. There is mesenteric edema and whirling of the mid mesenteric vessels best seen on images 244 through 300. There is a left inguinal hernia containing a segment of mildly distended small bowel. As also fluid and fat within the moderate to large left inguinal hernia. This appears to account for the small bowel obstruction. An internal hernia at the whirling of the vessels within the midabdomen could also result in the small bowel obstruction. The bladder is moderately distended. The prostate gland is mildly enlarged. Moderate well-formed stool within the rectum. Colonic diverticulosis. No evidence for acute diverticulitis. There is also moderate well-formed stool within the proximal colon. No retroperitoneal lymphadenopathy. 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 The abdominal aorta measures up to 2.9 cm in diameter. The unenhanced liver, spleen, adrenal glands, left kidney are unremarkable. There is mild fullness within the right renal collecting system without jeb hydronephrosis. This is similar to the prior study and is likely chronic. The unenhanced pancreas is unremarkable. The gallbladder surgically absent. IMPRESSION: 1. Small bowel obstruction with the transition point likely located within the bowel containing left inguinal hernia. There is also twisting of the mid mesenteric vessels which could represent an internal hernia resulting in the small bowel obstruction. However, this is considered less likely. 2. Small focal area of consolidation within the right lower lobe with a few opacified right lower lobe bronchi. This raises the possibility of aspiration pneumonia. 3. Additional chronic findings as described above. ACT 112: Negative or not required by law. Electronically signed by: Thee Hernandez M.D. 07/22/2020 6:02 PM MDM Narrative I did evaluate the patient as noted above. The patient appears to have an incarcerated left inguinal hernia. He is nauseated and has not had a bowel movement in 2 days. He likely has a small bowel obstruction. He was given fentanyl and Zofran IV prior to arrival. I did treat him here in the emergency department with additional fentanyl 50 mcg IV. He was made NPO. I did order a rapid COVID-19 test in anticipation of operative repair. This was negative. I did place an order for continuous cardiac monitoring. The monitor showed normal sinus rhythm at a rate of 99 bpm. I did order a urine analysis. I did order and review the patient's blood work as noted in the electronic medical record. His white blood cell count is 10.6. He is not anemic. Electrolytes are unremarkable. Lactate is not elevated. I did order a CT of the abdomen and pelvis. I did review the images myself as well as the radiology report as described above. The patient has a small bowel obstruction with the transition point likely located at the bowel containing left inguinal hernia. I did reevaluate the patient. He is feeling better. I did reexamine him. His abdomen is now soft and the hernia was reduced. He is not having any tenderness in the abdomen at this time. He is feeling much better and so I did not place an NG tube. He is 89 years old and on Plavix. I did discuss the case with Dr. Bush of surgery who recommended hospitalization with the medical service. I did discuss case with the hospitalist and caser in. Impression & Plan SBO (small bowel obstruction), Incarcerated inguinal hernia, Chronic atrial fibrillation Discharge Plan Visit Data Chief Complaint: Abdominal Pain Stated Complaint: AB PAIN ED Provider: Dashanw Poole Discharge Problem: SBO (small bowel obstruction), Incarcerated inguinal hernia, Chronic atrial fibrillation Patient Disposition: Being Evaluated by Hospitalist Forms Stand Alone Forms: My [facility] Prescriptions Prescriptions: No Action Symbicort 160-4.5 mcg/actuation HFA aerosol inhaler 2 puffs INH BID Qty: 10.2 RF: 2 levalbuterol tartrate [Xopenex HFA] 45 mcg/actuation HFA aerosol inhaler 2 puff Inhalation Q8H PRN (Reason: Wheezing) Qty: 15 RF: 5 ipratropium bromide 0.02 % solution See Rx Instructions .ROUTE .COMPLEX Qty: 300 RF: 5 levalbuterol HCl 1.25 mg/0.5 mL solution for nebulization 1.25 mg INH Q6H PRN (Reason: Shortness Of Breath Or Wheezing) Qty: 180 RF: 5 pantoprazole 40 mg tablet,delayed release (DR/EC) 40 mg PO BID Qty: 60 RF: 5 sodium chloride [Hyper-Alexander] 7 % solution for nebulization 4 ml INH BID Qty: 720 RF: 1 alfuzosin 10 mg tablet extended release 24 hr 10 mg PO HS RF: 0 montelukast [Singulair] 10 mg Tablet 10 mg PO HS RF: 0 multivitamin [Multiple Vitamins] Tablet 1 tab PO QAM RF: 0 finasteride 5 mg Tablet 5 mg PO QAM RF: 0 clopidogrel [Plavix] 75 mg Tablet 75 mg PO QAM RF: 0 flunisolide 25 mcg (0.025 %) [place],Non-Aerosol 2 spray INTRANASAL BID RF: 0 Calcium 600 + D(3) 600 mg calcium- 200 unit Capsule 1 tab PO BID RF: 0 loratadine 10 mg Tablet 10 mg PO QAM RF: 0 levothyroxine 50 mcg tablet 50 mcg PO QAM RF: 0 docusate sodium 100 mg Capsule 100 mg PO BID PRN (Reason: Constipation) RF: 0 verapamil 240 mg tablet extended release 240 mg PO HS RF: 0 diclofenac sodium 1 % gel 2 g TOPICAL QID PRN (Reason: Pain) RF: 0 Referrals Referrals: Dionte Banda DO [Primary Care Provider] -
[2020-07-22 16:40] LABS: Mean Corpuscular Hgb Conc 34.3 g/dL (32-36); Platelet Count 226 K/uL (130-400)
[2020-07-22 17:29] LABS: INR 1.1 (0.9-1.1); Partial Thromboplastin Ratio 1.1; Partial Thromboplastin Time 30.1 Seconds (21.0-31.0); Prothrombin Time 11.4 Seconds (9.0-12.0)
[2020-07-22 17:38] LABS: Albumin Level 3.1 gm/dl (3.4-5.0); BUN Creatinine Ratio 20.4 (10-20); Calcium 8.6 mg/dl (8.5-10.1); Creatinine Clr Calc Pharmacy 61.3 ml/min; Est GFR (African American) 74.3; Est GFR (Non-African American) 64.1; Potassium 4.1 mmol/L (3.5-5.1)
[2020-07-22 17:41] LABS: Albumin Globulin Ratio 0.8 (0.9-2); Bilirubin,Total 1.1 mg/dl (0.2-1); Total Protein 7.1 gm/dl (6.4-8.2)
[2020-07-22 17:44] LABS: Basophils # (auto) 0.02 K/uL (0-0.2); Basophils % (auto) 0.2 %; Eosinophils # (auto) 0.52 K/uL (0-0.5); Eosinophils % (auto) 4.9 %; Hematocrit (blood only) 45.5 % (42-52); Hemoglobin 15.6 g/dL (14.0-18.0); Immature Granulocytes # (auto) 0.03 K/uL (0.00-0.02); Immature Granulocytes % (auto) 0.3 %; Lymphocytes # (auto) 1.69 K/uL (1.2-3.4); Lymphocytes % (auto) 15.9 %; Mean Corpuscular Hemoglobin 31.1 pg (25-34); Mean Corpuscular Volume 90.6 fL (80-100); Monocytes # (auto) 0.84 K/uL (0.11-0.59); Monocytes % (auto) 7.9 %; Neutrophils # (auto) 7.54 K/uL (1.4-6.5); Neutrophils % (auto) 70.8 %; RDW Coefficient of Variation 13.4 % (11.5-14.5); RDW Standard Deviation 44.1 fL (36.4-46.3); Red Blood Count 5.02 M/uL (4.7-6.1); White Blood Count 10.64 K/uL (4.8-10.8)
--- NOTE | 2020-07-22 18:04 | CT Scan Report ---
ABDOMEN AND PELVIS CT WITHOUT CONTRAST CT DOSE: 631.89 mGy.cm HISTORY: Lower abdominal pain and left hernia eval for SBO TECHNIQUE: Multiaxial CT images of the abdomen and pelvis were performed without contrast. A dose lo wering technique was utilized adhering to the principles of ALARA. COMPARISON STUDY: Abdomen and pelvis CT 02/28/2020. FINDINGS: Interstitial thickening at the lung bases is likely chronic. There is partial opacification of the right lower lobe bronchi with a small focal area of consolidation within the right lung base posteriorly. This could be seen in the setting of aspiration pneumonia. No pneumoperitoneum. No pneum atosis. No suspicious lytic or blastic osseous lesions. Mildly distended and fluid-filled esophagus. The stomach and majority of the small bowel is also mildly distended and fluid-filled. There is mesen teric edema and whirling of the mid mesenteric vessels best seen on images 244 through 300. There is a left inguinal hernia containing a segment of mildly distended small bowel. As also fluid and fat wi thin the moderate to large left inguinal hernia. This appears to account for the small bowel obstruct ion. An internal hernia at the whirling of the vessels within the midabdomen could also result in the small bowel obstruction. The bladder is moderately distended. The prostate gland is mildly enlarged. Moderate well-formed stool within the rectum. Colonic diverticulosis. No evidence for acute divertic ulitis. There is also moderate well-formed stool within the proximal colon. No retroperitoneal lympha denopathy. 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 The abdominal aorta measures up to 2.9 cm in diameter. The unenhan markos liver, spleen, adrenal glands, left kidney are unremarkable. There is mild fullness within the ri t renal collecting system without jeb hydronephrosis. This is similar to the prior study and is l ikely chronic. The unenhanced pancreas is unremarkable. The gallbladder surgically absent. IMPRESSION: 1. Small bowel obstruction with the transition point likely located within the bowel containing left inguinal hernia. There is also twisting of the mid mesenteric vessels which could represent an music industry internship al hernia resulting in the small bowel obstruction. However, this is considered less likely. 2. Small focal area of consolidation within the right lower lobe with a few opacified right lower lob e bronchi. This raises the possibility of aspiration pneumonia. 3. Additional chronic findings as described above. ACT 112: Negative or not required by law. Electronically signed by: Thee Hernandez M.D. 07/22/2020 6:02 PM
[2020-07-22 19:30] LABS: Appearance Urine Cloudy (Clear); Bilirubin Urine Negative (Negative); Blood Urine Negative (Negative); Cast Urine Automated 0 /lpf (0-5); Color Urine Yellow; Glucose Urine UA Negative (Negative); Ketones Urine Negative (Negative); Leukocyte Esterase Urine Negative (Negative); Nitrite Urine Negative (Negative); Protein Urine Negative (Negative); Specific Gravity Urine 1.017 (1.000-1.030); Urobilinogen Urine Negative (Negative); pH Urine 8.5 (4.5-7.5)
[2020-07-22 19:44] LABS: Bacteria Urine Automated 1+ (Negative); RBC Urine Automated 0-4 /hpf (0-4)
[2020-07-22] MEDS ORDERED: ONDANSETRON INJ 2 MG/ML 2 ML VIAL IV PRN (19:46)
[2020-07-22] MEDS: VERAPAMIL HCL 240 MG TABCR PO SCH (21:02)
[2020-07-22] MEDS: D5W AND NSS 1,000 ML IV SCH (21:15)
[2020-07-22] MEDS ORDERED: MoRPHine SULFATE 4 MG/ML 1 ML CARP\\VIAL IV PRN (21:19)
[2020-07-22] MEDS ORDERED: METOPROLOL TARTRATE 1 MG/ML VIAL IV PRN (21:19)
[2020-07-22] MEDS ORDERED: LEVALBUTEROL TARTRATE 15 GM HFA.AER.AD INH PRN (21:19)
[2020-07-22] MEDS ORDERED: IPRATROPIUM BROMIDE NEB SOLN 0.02% 2.5 ML VIAL NEB PRN (21:19)
[2020-07-22] MEDS ORDERED: AMPICILLIN/SULBACTAM CONSULT ACTIVE PRN (21:21)
--- NOTE | 2020-07-22 21:47 | History and Physical Report ---
DATE OF ADMISSION: 07/22/2020 CHIEF COMPLAINT: Abdominal pain and constipation. HISTORY OF PRESENT ILLNESS: This is an 89-year-old male with past medical history significant for chronic respiratory failure, asthma, bronchiectasis, COPD, nonallergic rhinitis, obstructive sleep apnea on CPAP, chronic atrial fibrillation, chronic systolic heart failure, abdominal aortic aneurysm, history of heart block status post pacemaker, GERD, chronic kidney disease stage III, BPH, polymyalgia rheumatica, history of Mycobacterium avium intracellulare infection, history of TIA, history of splenic mass, history of skin cancer who lives alone at home. Uses cane with walker, gets help at home 5 days a week 2 hours a day. The patient says he is getting constipated for the last 2 weeks, having very hard stools, sometimes some blood with her stools, but he did not moved his bowels for the last 5 days and having abdominal pain.He is also having on and off nausea for last 2 weeks, but not today. Appetite is okay, but he did not eat anything since the breakfast today.For his ongoing symptoms, he came to the ER. CAT scan showing small-bowel obstruction. ER notified. Surgery phone representative, conservative management recommended for now. Currently, says pain is better with the pain medication. Nausea improved. No other problems. Denies any chest pain, no shortness of breath. He has cough and runny nose, says because of his asthma. Denies any shortness of breath, no chest pain. No headache, no blurred visions. Hard of hearing. Normal bladder movements. Currently, resting comfortably and hemodynamically stable. ALLERGIES: ASPIRIN, IBUPROFEN, NSAIDS. PAST MEDICAL HISTORY: As mentioned above. PAST SURGICAL HISTORY: Axillary lymph node biopsy, colonoscopy, EGDs, ablation of SVT, pacemaker placement, nasal polypectomy, excision of skin lesion in left lower side of the back, cholecystectomy, ultrasound-guided prostate biopsy. MEDICATIONS: The patient is on alfuzosin 10 mg p.o. at bedtime, budesonide formoterol HFA 2 puffs inhalation b.i.d., calcium plus vitamin D 1 tablet p.o. a.m., Plavix 75 mg p.o. a.m., diclofenac sodium 2 g topical q.i.d. p.r.n., Colace 100 mg p.o. b.i.d., finasteride 5 mg at bedtime, Osteo Bi-Flex 2 tablets p.o. q.a.m., ipratropium bromide inhalation as directed, Xopenex inhalation t.i.d. p.r.n., levothyroxine 50 mcg p.o. q.a.m., loratadine 10 mg p.o. a.m., Singulair 10 mg p.o. at bedtime, multivitamins 1 tablet p.o. a.m., Protonix 40 mg p.o. b.i.d., Trulance 3 mg p.o. daily, sodium chloride 4 mL inhalation t.i.d., verapamil 240 mg p.o. at bedtime. FAMILY HISTORY: Significant for mother has asthma, allergies, CHF. Father had Alzheimer's disease. Son has asthma. Sister has Meniere's disease and skin cancer. SOCIAL HISTORY: Currently lives alone. No smoking, no alcohol, no drug use. REVIEW OF SYMPTOMS: As per HPI. Rest of review of symptoms negative. PHYSICAL EXAMINATION: GENERAL: The patient is old and frail, not in acute distress. VITAL SIGNS: Temperature 36.5, pulse 115, respiratory rate 20, blood pressure 113/78, oxygen 93% on room air. HEENT: No pallor. Pupils equal, round, reactive to light. Oral mucosa dry. NECK: No JVD, no neck masses, no carotid bruits. CARDIOVASCULAR: S1, S2 heard, regular rate and rhythm. Tachycardia. No murmurs. RESPIRATORY SYSTEM: Normal AP diameter. Mild bilateral rhonchi heard. No wheezing, no crackles. ABDOMEN: Soft, bowel sounds sluggish, nontender. No distention, no guarding, no rigidity. No inguinal hernia palpable at this time. CENTRAL NERVOUS SYSTEM: Cranial nerves II-XII grossly intact. Nonfocal. Hard of hearing. Moves extremities. EXTREMITIES: No edema, no erythema. LABORATORY DATA: WBC 10.6, hemoglobin 15.6, hematocrit 45.5, platelets 226. PT 11.4, INR 1.1, APTT 30.1. Sodium 136, potassium 4.1, chloride 105, bicarbonate 27, BUN 21, creatinine 1.03, serum glucose 91. Lactate 1.3, calcium 8.6, total bilirubin 1.1, AST 18, ALT 21, alkaline phosphatase 86, lipase 121. Urinalysis +1 protein, +1 bacteria. COVID-19 PCR negative. IMAGING: CT of abdomen and pelvis shows small-bowel obstruction with transition point likely located within a small bowel containing left inguinal hernia, twisting of the mid mesenteric vessels which could represent an internal hernia resulting in the small-bowel obstruction; however, this is considered less likely. Small focal area of consolidation within the right lower lobe with few opacified right lower lobe bronchi, this is a possibility of aspiration pneumonia. ASSESSMENT AND PLAN: This an 89-year-old male who presents with abdominal pain and found to have small-bowel obstruction. 1. Abdominal pain, small-bowel obstruction, question of incarcerated inguinal hernia but later it was reducible, surgery was consulted by ER. Plan for conservative management. Currently the patient is feeling better. Also constipated. He did not moved bowels for last several days. We will keep him n.p.o., IV fluids, IV antiemetics, IV morphine p.r.n. Consult surgery in a.m. for further recommendations, 2.possible aspiration pneumonia, possible urinary tract infection. Continue with Unasyn. Follow the cultures. 2. History of atrial flutter status post ablation in January 2016. 3. History of paroxysmal atrial fibrillation, now chronic atrial fibrillation, history of conduction disease, heart block status post dual-chamber pacemaker in February 2006. The patient is on verapamil. Not on anticoagulation secondary to recurrent spontaneous hematomas. on Plavix. Will continue to monitor. 4. History of TIA. On Plavix. 5. BPH. On finasteride. 6. Asthma. Continue home inhalers and nebs. 7. Sleep apnea, on CPAP. 8. Chronic kidney disease stage III, creatinine 1.03. We will follow the labs. 9. Gastroesophageal reflux disease: On Protonix. 10. History of polymyalgia rheumatica. 11. Hypothyroidism. Continue Synthroid. 12. Constipation. Stool softeners. May need enema. 13. Deep venous thrombosis prophylaxis, sequential compression devices for now. 14. Disposition: Closely monitor in the med tele. Level 1 full code. Expect to discharge home. PT and OT prior to discharge. Social service to help with discharge planning. CODE STATUS: Level 1 full code only if there is a chance of recovery. [facility]
[2020-07-22] MEDS: LEVALBUTEROL 1.25MG/0.5ML NEB INH PRN (21:49)
[2020-07-22] MEDS: SODIUM CHLOR 7% 4 ML NEB INH SCH (21:49)
[2020-07-22] MEDS: AMPICILLIN/SULBACTAM SOD 3,000 MG in 0.9 % SODIUM CHLORIDE 100 ML IV SCH (22:15)
[2020-07-22] MEDS: PANTOprazole 40 MG in SYRINGE 0 ML IV SCH (22:16)
[2020-07-22] MEDS: DOCUSATE SODIUM 100 MG CAP PO SCH (22:44)
[2020-07-22] MEDS: ALFUZOSIN HCL 10 MG TAB PO SCH (22:44)
[2020-07-22] MEDS: FINASTERIDE 5 MG TAB PO SCH (22:44)
[2020-07-22] MEDS: MONTELUKAST SODIUM 10 MG TABLET PO SCH (22:44)
[2020-07-23] MEDS: FLUTICASONE/VILANTEROL 200/25MCG 14 PUFFS/INHALER INH SCH ×2 (03:26→20:46)
[2020-07-23] MEDS: AMPICILLIN/SULBACTAM SOD 3,000 MG in 0.9 % SODIUM CHLORIDE 100 ML IV SCH ×4 (04:18→21:29)
[2020-07-23 05:38] LABS: Basophils # (auto) 0.03 K/uL (0-0.2); Basophils % (auto) 0.4 %; Eosinophils # (auto) 0.35 K/uL (0-0.5); Eosinophils % (auto) 5.1 %; Hematocrit (blood only) 40.1 % (42-52); Hemoglobin 13.4 g/dL (14.0-18.0); Immature Granulocytes # (auto) 0.02 K/uL (0.00-0.02); Immature Granulocytes % (auto) 0.3 %; Lymphocytes # (auto) 1.58 K/uL (1.2-3.4); Mean Corpuscular Hemoglobin 30.5 pg (25-34); Mean Corpuscular Hgb Conc 33.4 g/dL (32-36); Mean Corpuscular Volume 91.3 fL (80-100); Mean Platelet Volume 9.5 fL (7.4-10.4); Monocytes # (auto) 0.91 K/uL (0.11-0.59); Monocytes % (auto) 13.2 %; Neutrophils # (auto) 3.99 K/uL (1.4-6.5); Platelet Count 201 K/uL (130-400); RDW Coefficient of Variation 13.4 % (11.5-14.5); RDW Standard Deviation 44.2 fL (36.4-46.3); Red Blood Count 4.39 M/uL (4.7-6.1); White Blood Count 6.88 K/uL (4.8-10.8)
[2020-07-23 05:54] LABS: BUN Creatinine Ratio 20.1 (10-20); Calcium 8.1 mg/dl (8.5-10.1); Creatinine Clr Calc Pharmacy 61.9 ml/min; Est GFR (African American) 78.9; Est GFR (Non-African American) 68.1; Magnesium 2.1 mg/dl (1.8-2.4); Potassium 3.9 mmol/L (3.5-5.1)
[2020-07-23] MEDS: LEVOTHYROXINE SODIUM 50 MCG TABLET PO SCH (05:55)
[2020-07-23] MEDS: D5W AND NSS 1,000 ML IV SCH ×2 (07:18→17:38)
--- NOTE | 2020-07-23 07:22 | Hospitalist Progress Note ---
Date of Service July 23, 2020 Assessment & Plan (1) History of MAC infection: (2) MARU on CPAP: (3) Chronic atrial fibrillation: (4) Incarcerated inguinal hernia: (5) SBO (small bowel obstruction): (6) COPD (chronic obstructive pulmonary disease) case management patient: (7) GERD (gastroesophageal reflux disease): (8) PMR (polymyalgia rheumatica): (9) Pacemaker: (10) BPH (benign prostatic hypertrophy): (11) CKD (chronic kidney disease) stage 3, GFR 30-59 ml/min: ASSESSMENT AND PLAN: This an 89-year-old male who presents with abdominal pain and found to have small-bowel obstruction. 1. Abdominal pain, small-bowel obstruction, question of incarcerated inguinal hernia but later it was reducible, surgery was consulted by ER. Plan for conservative management. Currently the patient is feeling better. Also constipated. He did not move bowels for last several days. We will keep him n.p.o., IV fluids, IV antiemetics, IV morphine p.r.n. Consult surgery today 2. Possible aspiration pneumonia, possible urinary tract infection. Continue with Unasyn. Follow the cultures. 3. 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 The patient is on verapamil. Not on anticoagulation secondary to recurrent spontaneous hematomas. on Plavix. Will continue to monitor. 4. History of TIA. On Plavix. 5. BPH. On finasteride. 6. Asthma. Continue home inhalers and nebs. 7. Sleep apnea, on CPAP. 8. Chronic kidney disease stage III, creatinine 1.03. We will follow the labs. 9. Gastroesophageal reflux disease: On Protonix. 10. History of polymyalgia rheumatica. 11. Hypothyroidism. Continue Synthroid. 12. Constipation. Stool softeners. May need enema. 13. Deep venous thrombosis prophylaxis, sequential compression devices for now. 14. Disposition: Closely monitor in the [facility]. Level 1 full code. Expect to discharge home. PT and OT prior to discharge. accounting advisory services manager to help with discharge planning. Labs checked ROS-No Headache, No Visual Changes, No Nausea, No Vomiting, No Fever, No Chills, No Neck Pain or Stiffness, No Chest Pain, No Palpitations, No SOB, No VENTURA, + Cough, No Sputum, + Wheezing, No Abdominal Pain, No Diarrhea, No Hematemesis, No Hemoptysis, No Unexpected Weight Loss, No Flank pain, No Melena, No Hematochezia, No Frequency, No Urgency, No Burning, No Hematuria, No Rashes, No Diaphoresis. Appetite is Normal Physical Exam Gen-AAO x 3, NAD, Afebrile Head-NCAT, EOMI, PERRLA, Anicteric Sclera, No Posterior Pharyngeal Erythema Neck-Supple, No JVD, No Thyromegaly, No Masses, No LAD, No Bruits Lungs-Wheezing Bilaterally, No Rales, No Rhonchi, No Crepitus Chest-No S4, +S1, +S2, No S3, No Murmurs, No Rubs, No Gallops, No Ectopy Abdomen-Soft, Bowel Sounds Present, Non Tender, Non Distended, No Hepatomegaly, No Splenomegaly, No Palpable Masses, No Rebound, No Rigidity, No Guarding Musculoskeletal-Full Range of Motion Bilaterally, No CVAT Extremities-No Cyanosis, No Clubbing, No Edema Nuero-Cranial Nerves II-XII grossly intact, Motor WNL, DTRs WNL, Strength WNL, Non Focal Psych-Normal Mood Admission and Anticipated Discharge Date Admission Date: July 22, 2020 Results & Data Results & Data ([facility]) Vital Signs (Past 12 Hours) Vital Signs Temp Pulse Pulse Pulse Resp BP Pulse Ox 07/23/20 04:00 36.5 C 78 16 110/66 90 07/23/20 00:21 130 H 07/22/20 23:25 54 L 18 93 07/22/20 21:50 88 16 92 07/22/20 21:15 36.4 C L 132 H 118 H 20 106/81 90 07/22/20 20:53 116 H 20 106/77 91 07/22/20 20:16 124 H 20 125/75 92
[2020-07-23] MEDS: SODIUM CHLOR 7% 4 ML NEB INH SCH ×3 (07:42→19:09)
[2020-07-23] MEDS: LEVALBUTEROL 1.25MG/0.5ML NEB INH PRN (07:42)
--- NOTE | 2020-07-23 08:07 | Surgery Consultation ---
Date of Consultation July 23, 2020 Assessment & Plan (1) Left inguinal hernia: pt is a 89 year-old male who was admitted to hospital for left inguinal hernia with SBO, IMP: left inguinal hernia, plan, the hernia was reduced, no emergent surgery repair hernia now, recommend- hold plavix for 5 days, pt can take 81 mg ASA once a day now, plan to do open repair left inguinal hernia with mesh under sedation + local next week, D/W benefits, risks and alternatives of the surgery, pt understood, he agrees with the plan, I answered all questions, cash manager consult for pre-op cardiac clearance, clear diet today, will F/U Present on Admission?: Yes History of Present Illness Attending Physician: Janusz Mcnamara DO CHIEF COMPLAINT: Abdominal pain and constipation. HISTORY OF PRESENT ILLNESS: This is an 89-year-old male with past medical history significant for chronic respiratory failure, asthma, bronchiectasis, COPD, nonallergic rhinitis, obstructive sleep apnea on CPAP, chronic atrial fibrillation, chronic systolic heart failure, abdominal aortic aneurysm, history of heart block status post pacemaker, GERD, chronic kidney disease stage III, BPH, polymyalgia rheumatica, history of Mycobacterium avium intracellulare infection, history of TIA, history of splenic mass, history of skin cancer who lives alone at home. Uses cane with walker, gets help at home 5 days a week 2 hours a day. The patient says he is getting constipated for the last 2 weeks, having very hard stools, sometimes some blood with her stools, but he did not moved his bowels for the last 5 days and having abdominal pain.He is also having on and off nausea for last 2 weeks, but not today. Appetite is okay, but he did not eat anything since the breakfast today.For his ongoing symptoms, he came to the ER. CAT scan showing small-bowel obstruction. ER notified. Surgery commission specialist, conservative management recommended for now. Currently, says pain is better with the pain medication. Nausea improved. No other problems. Denies any chest pain, no shortness of breath. He has cough and runny nose, says because of his asthma. Denies any shortness of breath, no chest pain. No headache, no blurred visions. Hard of hearing. Normal bladder movements. Currently, resting comfortably and hemodynamically stable. I ( Olegario Bush MD ) got a call for consult SBO, I reviewed pt's H/P, labs, CT scan with pt, the left inguinal hernia was reduced by Er doctor last night, now pt denies abdominal pain, no nausea, no vomiting, passed BM this morning. ALLERGIES: ASPIRIN, IBUPROFEN, NSAIDS. PAST MEDICAL HISTORY: As mentioned above. PAST SURGICAL HISTORY: Axillary lymph node biopsy, colonoscopy, EGDs, ablation of SVT, pacemaker placement, nasal polypectomy, excision of skin lesion in left lower side of the back, cholecystectomy, ultrasound-guided prostate biopsy. MEDICATIONS: The patient is on alfuzosin 10 mg p.o. at bedtime, budesonide formoterol HFA 2 puffs inhalation b.i.d., calcium plus vitamin D 1 tablet p.o. a.m., Plavix 75 mg p.o. a.m., diclofenac sodium 2 g topical q.i.d. p.r.n., Colace 100 mg p.o. b.i.d., finasteride 5 mg at bedtime, Osteo Bi-Flex 2 tablets p.o. q.a.m., ipratropium bromide inhalation as directed, Xopenex inhalation t.i.d. p.r.n., levothyroxine 50 mcg p.o. q.a.m., loratadine 10 mg p.o. a.m., Singulair 10 mg p.o. at bedtime, multivitamins 1 tablet p.o. a.m., Protonix 40 mg p.o. b.i.d., Trulance 3 mg p.o. daily, sodium chloride 4 mL inhalation t.i.d., verapamil 240 mg p.o. at bedtime. FAMILY HISTORY: Significant for mother has asthma, allergies, CHF. Father had Alzheimer's disease. Son has asthma. Sister has Meniere's disease and skin cancer. SOCIAL HISTORY: Currently lives alone. No smoking, no alcohol, no drug use. REVIEW OF SYMPTOMS: As per HPI. Rest of review of symptoms negative. Allergies Allergy/AdvReac Type Severity Reaction Status Date / Time aspirin Allergy Severe TIGHTNESS Verified 07/22/20 19:42 IN CHEST NSAIDS (Non-Steroidal Allergy Severe TIGHTNESS Verified 07/22/20 19:42 Anti-Inflamma IN THE CHEST rofecoxib Allergy Severe TIGHTNESS Verified 07/22/20 19:42 IN CHEST ibuprofen Allergy Intermediate Asthma Verified 07/22/20 19:42 Symptoms Home Medications Home Medications Medication Instructions Recorded Confirmed Type Calcium 600 + D(3) 1 tab PO QAM 06/02/18 07/22/20 History clopidogrel [Plavix] 75 mg PO QAM 06/02/18 07/22/20 History finasteride 5 mg PO HS 06/02/18 07/22/20 History loratadine 10 mg PO QAM 06/02/18 07/22/20 History montelukast [Singulair] 10 mg PO HS 06/02/18 07/22/20 History multivitamin [Multiple Vitamins] 1 tab PO QAM 06/02/18 07/22/20 History alfuzosin 10 mg tablet,extended 10 mg PO HS 06/02/19 07/22/20 History release 24 hr budesonide-formoterol HFA 160 2 puffs INH BID #10.2 gm 07/01/19 07/22/20 Rx mcg-4.5 mcg/actuation aerosol inhaler levalbuterol tartrate 45 2 puff INHALATION Q8H PRN #15 gm 09/17/19 07/22/20 Rx mcg/actuation aerosol inhaler diclofenac sodium 2 g TOPICAL QID PRN 02/28/20 07/22/20 History docusate sodium 100 mg PO BID 02/28/20 07/22/20 History levothyroxine 50 mcg PO QAM 02/28/20 07/22/20 History verapamil 240 mg PO HS 02/28/20 07/22/20 History ipratropium bromide 0.02 % See Rx Instructions .ROUTE 03/22/20 07/22/20 Rx solution for inhalation .COMPLEX #300 milliliter pantoprazole 40 mg tablet,delayed 40 mg PO BID #60 tab 05/29/20 07/22/20 Rx release azithromycin [Zithromax Z-Kwan] See Rx Instructions .ROUTE .COMPLEX 07/22/20 07/22/20 History glucosamine-chondroitin [Osteo 2 tab PO QAM 07/22/20 07/22/20 History Bi-Flex] levalbuterol HCl 1.25 mg INH TID PRN 07/22/20 07/22/20 History plecanatide [Trulance] 3 mg PO DAILY 07/22/20 07/22/20 History prednisone See Rx Instructions .ROUTE .COMPLEX 07/22/20 07/22/20 History sodium chloride [Pulmosal] 4 ml INHALATION TID 07/22/20 07/22/20 History Patient History Medical History Asthma Atrial fibrillation BPH (benign prostatic hyperplasia) Chronic kidney disease GERD (gastroesophageal reflux disease) On home oxygen therapy MARU on CPAP Pacemaker HX OF SYMPTOMATIC BRADYCARDIA WITH PAUSES Transient ischemic attack (TIA) 20+ YEARS AGO, NO RESIDUAL. Surgical History History of cardiac radiofrequency ablation History of cataract extraction with lens replacement LEFT History of cholecystectomy History of pacemaker Status post cataract extraction Family History Other Asthma Heart disease Social History Smoking Status: Never smoker Second Hand Exposure: Yes; Do You Dip or Chew Tobacco: No; Tobacco Cessation Education Requested by Patient: No Hx Alcohol Use: No Hx Substance Use: No Preferred Language: Martiniquais Communication Ability: Effective Funeral Home Manager Required: No Beliefs That Will Affect Care: None marital status: / Current Living Situation: Alone Current Living Situation Comment: lives alone;has caregivers for 2 hours, 5 days a week Other Information That Helps Us Care for You: No Feels Safe at Home: Yes Safety Concerns: Feels Safe At This Time Assistive Devices: Cane, Denture - Upper, Denture - Lower, Glasses, Hearing Aid - Bilateral, Nebulizer, Oxygen - at Night and Walker Review of Systems Review of Systems: All systems reviewed & are unremarkable except as noted in HPI & below Constitutional: as per Subjective / HPI Eyes: as per Subjective / HPI Ear, Nose, Mouth, Throat: as per Subjective / HPI Respiratory: as per Subjective / HPI COPD, asthma, bronchiectasis Cardiovascular: as per Subjective / HPI Additional Comments: A-fib, heart block, pacemaker Gastrointestinal: as per Subjective / HPI LIH, GERD, S/P cholecystectomy Genitourinary: + as per Subjective / HPI Musculoskeletal: as per Subjective / HPI Integumentary: as per Subjective / HPI Neurologic: as per Subjective / HPI TIA Psychiatric: as per Subjective / HPI Endocrine: as per Subjective / HPI Hematologic / Lymphatic: as per Subjective / HPI Allergy / Immunological: as per Subjective / HPI Physical Exam Constitutional: WD/WN, vitals as above well developed and well nourished Eyes: PERRL, conjunctivae normal, anicteric sclerae ENMT: external ear and nose normal, oropharynx normal Neck: trachea midline, no thyromegaly Respiratory: normal respiratory effort, lungs clear to auscultation Cardiovascular: Rate/Rhythm: + irregularly irregular Gastrointestinal (Abdomen): normal bowel sounds, soft, nontender, no hepatosplenomegaly the left inguinal hernia is reduced, no tenderness, no distend, Musculoskeletal: no cyanosis or clubbing, extremities motor strength 5/5 Skin: no rashes, warm and dry Neurologic: awake Psychiatric: Orientation: alert and oriented x 3 Results & Data ([facility]) Vital Signs (Past 12 Hours) Vital Signs Temp Pulse Pulse Pulse Resp BP Pulse Ox 07/23/20 07:58 36.5 C 57 L 17 92/55 L 90 07/23/20 07:43 62 17 97 07/23/20 07:36 69 07/23/20 04:00 36.5 C 78 16 110/66 90 07/23/20 00:21 130 H 07/22/20 23:25 54 L 18 93 07/22/20 21:50 88 16 92 07/22/20 21:15 36.4 C L 132 H 118 H 20 106/81 90 07/22/20 20:53 116 H 20 106/77 91 07/22/20 20:16 124 H 20 125/75 92 Laboratory Results Abnormal lab results 07/22/20 07/22/20 07/22/20 Range/Units 16:30 17:07 19:00 RBC (4.7-6.1) M/uL Hgb (14.0-18.0) g/dL Hct (42-52) % Neut # (Auto) 7.54 H (1.4-6.5) K/uL Garvin # (Auto) 0.84 H (0.11-0.59) K/uL Eos # (Auto) 0.52 H (0-0.5) K/uL Immature Gran # (Auto) 0.03 H (0.00-0.02) K/uL Anion Gap (3-11) BUN 21 H (7-18) mg/dl BUN/Creatinine Ratio 20.4 H (10-20) Glucose (70-99) mg/dl Calcium (8.5-10.1) mg/dl Total Bilirubin 1.1 H (0.2-1) mg/dl Albumin 3.1 L (3.4-5.0) gm/dl Albumin/Globulin Ratio 0.8 L (0.9-2) Urine Appearance Cloudy A (Clear) Urine pH 8.5 H (4.5-7.5) U Epithel Cells (Auto) 10-20 H (0-5) /lpf Urine Bacteria (Auto) 1+ H (Negative) 07/23/20 07/23/20 Range/Units 05:16 05:16 RBC 4.39 L (4.7-6.1) M/uL Hgb 13.4 L (14.0-18.0) g/dL Hct 40.1 L (42-52) % Neut # (Auto) (1.4-6.5) K/uL Garvin # (Auto) 0.91 H (0.11-0.59) K/uL Eos # (Auto) (0-0.5) K/uL Immature Gran # (Auto) (0.00-0.02) K/uL Anion Gap 1.0 L (3-11) BUN 20 H (7-18) mg/dl BUN/Creatinine Ratio 20.1 H (10-20) Glucose 108 H (70-99) mg/dl Calcium 8.1 L (8.5-10.1) mg/dl Total Bilirubin (0.2-1) mg/dl Albumin (3.4-5.0) gm/dl Albumin/Globulin Ratio (0.9-2) Urine Appearance (Clear) Urine pH (4.5-7.5) U Epithel Cells (Auto) (0-5) /lpf Urine Bacteria (Auto) (Negative) Diagnostic Findings ABDOMEN AND PELVIS CT WITHOUT CONTRAST CT DOSE: 631.89 mGy.cm HISTORY: Lower abdominal pain and left hernia eval for SBO TECHNIQUE: Multiaxial CT images of the abdomen and pelvis were performed without contrast. A dose lowering technique was utilized adhering to the principles of ALARA. COMPARISON STUDY: Abdomen and pelvis CT 02/28/2020. FINDINGS: Interstitial thickening at the lung bases is likely chronic. There is partial opacification of the right lower lobe bronchi with a small focal area of consolidation within the right lung base posteriorly. This could be seen in the setting of aspiration pneumonia. No pneumoperitoneum. No pneumatosis. No suspicious lytic or blastic osseous lesions. Mildly distended and fluid-filled esophagus. The stomach and majority of the small bowel is also mildly distended and fluid-filled. There is mesenteric edema and whirling of the mid mesenteric vessels best seen on images 244 through 300. There is a left inguinal hernia containing a segment of mildly distended small bowel. As also fluid and fat within the moderate to large left inguinal hernia. This appears to account for the small bowel obstruction. An internal hernia at the whirling of the vessels within the midabdomen could also result in the small bowel obstruction. The bladder is moderately distended. The prostate gland is mildly enlarged. Moderate well-formed stool within the rectum. Colonic diverticulosis. No evidence for acute diverticulitis. There is also moderate well-formed stool within the proximal colon. No retroperitoneal lymphadenopathy. 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 The abdominal aorta measures up to 2.9 cm in diameter. The unenhanced liver, spleen, adrenal glands, left kidney are unremarkable. There is mild fullness within the right renal collecting system without jeb hydronephrosis. This is similar to the prior study and is likely chronic. The unenhanced pancreas is unremarkable. The gallbladder surgically absent. IMPRESSION: 1. Small bowel obstruction with the transition point likely located within the bowel containing left inguinal hernia. There is also twisting of the mid mesenteric vessels which could represent an internal hernia resulting in the small bowel obstruction. However, this is considered less likely. 2. Small focal area of consolidation within the right lower lobe with a few opacified right lower lobe bronchi. This raises the possibility of aspiration pneumonia. 3. Additional chronic findings as described above.
[2020-07-23] MEDS: PANTOprazole 40 MG in SYRINGE 0 ML IV SCH ×2 (08:09→20:46)
[2020-07-23] MEDS: CLOPIDOGREL BISULFATE 75 MG TAB PO SCH (08:10)
[2020-07-23] MEDS: DOCUSATE SODIUM 100 MG CAP PO SCH ×2 (08:10→20:46)
[2020-07-23] MEDS: LORATADINE 10 MG TAB PO SCH (08:10)
[2020-07-23] MEDS: MULTIVITAMIN TAB PO SCH (08:11)
[2020-07-23] MEDS ORDERED: SOD PHOSPHATE/SOD BIPHOSPHATE ENEMA 132 ML BTL PR STA (09:41)
[2020-07-23] MEDS ORDERED: IPRATROPIUM BROMIDE NEB SOLN 0.02% 2.5 ML VIAL NEB SCH (10:15)
[2020-07-23] MEDS: LEVALBUTEROL 1.25MG/0.5ML NEB INH SCH ×2 (13:09→19:09)
[2020-07-23] MEDS: IPRATROPIUM BROMIDE NEB SOLN 0.02% 2.5 ML VIAL NEB SCH ×2 (13:09→19:09)
[2020-07-23] MEDS ORDERED: LACTULOSE SYRUP 30 GM/45 ML UDP PO SCH (14:00)
[2020-07-23] MEDS: MONTELUKAST SODIUM 10 MG TABLET PO SCH (20:45)
[2020-07-23] MEDS: ALFUZOSIN HCL 10 MG TAB PO SCH (20:45)
[2020-07-23] MEDS: VERAPAMIL HCL 240 MG TABCR PO SCH (20:46)
[2020-07-23] MEDS: FINASTERIDE 5 MG TAB PO SCH (20:47)
[2020-07-24] MEDS: D5W AND NSS 1,000 ML IV SCH ×3 (03:19→16:06)
[2020-07-24] MEDS: AMPICILLIN/SULBACTAM SOD 3,000 MG in 0.9 % SODIUM CHLORIDE 100 ML IV SCH ×4 (03:46→21:00)
[2020-07-24] MEDS: LEVOTHYROXINE SODIUM 50 MCG TABLET PO SCH (05:33)
[2020-07-24 06:25] LABS: Hematocrit (blood only) 37.2 % (42-52); Hemoglobin 12.3 g/dL (14.0-18.0); Mean Corpuscular Hemoglobin 30.5 pg (25-34); Mean Corpuscular Hgb Conc 33.1 g/dL (32-36); Mean Corpuscular Volume 92.3 fL (80-100); Mean Platelet Volume 9.7 fL (7.4-10.4); Platelet Count 168 K/uL (130-400); RDW Coefficient of Variation 13.6 % (11.5-14.5); RDW Standard Deviation 45.6 fL (36.4-46.3); Red Blood Count 4.03 M/uL (4.7-6.1); White Blood Count 5.02 K/uL (4.8-10.8)
[2020-07-24 07:13] LABS: BUN Creatinine Ratio 12.2 (10-20); Calcium 7.7 mg/dl (8.5-10.1); Creatinine Clr Calc Pharmacy 68.6 ml/min; Est GFR (African American) 85.2; Est GFR (Non-African American) 73.5; Potassium 3.3 mmol/L (3.5-5.1)
[2020-07-24] MEDS: LEVALBUTEROL 1.25MG/0.5ML NEB INH SCH ×3 (07:25→19:25)
[2020-07-24] MEDS: SODIUM CHLOR 7% 4 ML NEB INH SCH ×3 (07:25→19:25)
[2020-07-24] MEDS: IPRATROPIUM BROMIDE NEB SOLN 0.02% 2.5 ML VIAL NEB SCH ×3 (07:25→19:25)
[2020-07-24] MEDS: PANTOprazole 40 MG in SYRINGE 0 ML IV SCH ×2 (08:17→20:56)
[2020-07-24] MEDS: MULTIVITAMIN TAB PO SCH (08:17)
[2020-07-24] MEDS: DOCUSATE SODIUM 100 MG CAP PO SCH ×2 (08:17→20:19)
[2020-07-24] MEDS: LORATADINE 10 MG TAB PO SCH (08:17)
[2020-07-24] MEDS: CLOPIDOGREL BISULFATE 75 MG TAB PO SCH ×2 (08:17→13:31)
--- NOTE | 2020-07-24 09:15 | XRay Report ---
KUB CLINICAL HISTORY: Generalized abdominal pain. FINDINGS: 2 AP supine abdominal radiographs are compared to study dated 02/29/2020 and correlated with abdominal CT dated 07/22/2020. There is a nonobstructed abdominal bowel gas pattern noting moderate colonic fecal retention. No evidence of intraperitoneal free air is seen on these supine images. Ther e is advanced atherosclerotic calcification of the abdominal aorta. Phleboliths are noted in the pelv is. The skeletal structures are osteopenic and appear intact. There is moderate to advanced lumbosacr al spondylosis and scoliosis. Cardiomegaly with pacemaker leads is noted in the lower chest. IMPRESSION: 1. There is no radiographic evidence of bowel obstruction. 2. Moderate constipation. Electronically signed by: Noé Gabriel M.D. 07/24/2020 9:14 AM
[2020-07-24] MEDS ORDERED: POTASSIUM CHLORIDE 20 MEQ/15 ML UDC PO STA (09:26)
[2020-07-24] MEDS: POLYETHYLENE (MIRALAX) 17 GM PACK PO SCH ×2 (10:05→17:29)
[2020-07-24] MEDS: bisacodyL 10 MG SUPP PR SCH ×2 (10:06→20:19)
--- NOTE | 2020-07-24 10:09 | Hospitalist Progress Note ---
Date of Service July 24, 2020 Assessment & Plan (1) History of MAC infection: (2) MARU on CPAP: (3) Chronic atrial fibrillation: (4) Incarcerated inguinal hernia: (5) SBO (small bowel obstruction): (6) COPD (chronic obstructive pulmonary disease) case management patient: (7) GERD (gastroesophageal reflux disease): (8) PMR (polymyalgia rheumatica): (9) Pacemaker: (10) BPH (benign prostatic hypertrophy): (11) CKD (chronic kidney disease) stage 3, GFR 30-59 ml/min: ASSESSMENT AND PLAN: This an 89-year-old male who presents with abdominal pain and found to have small-bowel obstruction. 1. Abdominal pain, small-bowel obstruction, question of incarcerated inguinal hernia but later it was reducible, surgery is on the case. Plan for conservative management. Today the patient had crampy abd pain. KUB showed he is still constipated. He moved his bowels yesterday. On Full Liquids., IV fluids, IV antiemetics, IV morphine p.r.n. Await surgery input today, Possible Surgery soon, Plavix held, can't give ASA sec to Allergy to NSAIDS 2. Possible aspiration pneumonia, possible urinary tract infection. Continue with Unasyn. Follow the cultures. 3. 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 The patient is on verapamil. Not on anticoagulation secondary to recurrent spontaneous hematomas. on Plavix. Will continue to monitor. 4. History of TIA. On Plavix. 5. BPH. On finasteride. 6. Asthma. Continue home inhalers and nebs. 7. Sleep apnea, on CPAP. 8. Chronic kidney disease stage III, creatinine 1.03. We will follow the labs. 9. Gastroesophageal reflux disease: On Protonix. 10. History of polymyalgia rheumatica. 11. Hypothyroidism. Continue Synthroid. 12. Constipation. Stool softeners. May need enema. 13. Deep venous thrombosis prophylaxis, sequential compression devices for now. 14. Disposition: Closely monitor in the [facility]. Level 1 full code. Expect to discharge home. PT and OT prior to discharge. financial services internship to help with discharge planning. Labs checked Miralax q8, Dulcolax 10 [place] q12h ROS-No Headache, No Visual Changes, No Nausea, No Vomiting, No Fever, No Chills, No Neck Pain or Stiffness, No Chest Pain, No Palpitations, No SOB, No VENTURA, + Cough, No Sputum, + Wheezing, No Abdominal Pain, No Diarrhea, No Hematemesis, No Hemoptysis, No Unexpected Weight Loss, No Flank pain, No Melena, No Hematochezia, No Frequency, No Urgency, No Burning, No Hematuria, No Rashes, No Diaphoresis. Appetite is Normal Physical Exam Gen-AAO x 3, NAD, Afebrile Head-NCAT, EOMI, PERRLA, Anicteric Sclera, No Posterior Pharyngeal Erythema Neck-Supple, No JVD, No Thyromegaly, No Masses, No LAD, No Bruits Lungs-Wheezing Bilaterally, No Rales, No Rhonchi, No Crepitus Chest-No S4, +S1, +S2, No S3, No Murmurs, No Rubs, No Gallops, No Ectopy Abdomen-Soft, Bowel Sounds Present, Non Tender, Non Distended, No Hepatomegaly, No Splenomegaly, No Palpable Masses, No Rebound, No Rigidity, No Guarding Musculoskeletal-Full Range of Motion Bilaterally, No CVAT Extremities-No Cyanosis, No Clubbing, No Edema Nuero-Cranial Nerves II-XII grossly intact, Motor WNL, DTRs WNL, Strength WNL, Non Focal Psych-Normal Mood Admission and Anticipated Discharge Date Admission Date: July 22, 2020 Results & Data Results & Data ([facility]) Vital Signs (Past 12 Hours) Vital Signs Temp Pulse Pulse Resp BP Pulse Ox 07/24/20 07:28 78 07/24/20 07:25 58 L 18 90 07/24/20 06:09 36.4 C L 76 16 135/83 90 07/24/20 03:00 36.5 C 68 20 94/59 L 92 07/23/20 23:22 81
--- NOTE | 2020-07-24 12:00 | Surgery Progress Note ---
Date of Service F/U [facility], pt is stable, no nausea, no vomiting, KUB - no SBO, July 24, 2020 Assessment & Plan (1) Left inguinal hernia: pt is a 89 year-old male who was admitted to hospital for left inguinal hernia with SBO, IMP: left inguinal hernia, plan, the hernia was reduced, no emergent surgery repair hernia now, recommend- hold plavix for 5 days, pt can take 81 mg ASA once a day now, plan to do open repair left inguinal hernia with mesh under sedation + local next week, D/W benefits, risks and alternatives of the surgery, pt understood, he agrees with the plan, I answered all questions, [employer] consult for pre-op cardiac clearance, clear diet today, will F/U 07/24/2020, 11:58AM stable, LIH, I recommend to do open repair left inguinal hernia with mesh under sedation + local on 07/26/2020, D/W benefits, risks and alternatives of the surgery, pt understood, he agrees with the surgery, I answered all questions, Admission and Anticipated Discharge Date Admission Date: July 22, 2020 Review of Systems Constitutional: as per Subjective / HPI Eyes: as per Subjective / HPI Ear, Nose, Mouth, Throat: as per Subjective / HPI Respiratory: as per Subjective / HPI COPD, asthma, bronchiectasis Cardiovascular: as per Subjective / HPI Additional Comments: A-fib, heart block, pacemaker Gastrointestinal: as per Subjective / HPI LIH, GERD, S/P cholecystectomy Genitourinary: + as per Subjective / HPI Musculoskeletal: as per Subjective / HPI Integumentary: as per Subjective / HPI Neurologic: as per Subjective / HPI TIA Psychiatric: as per Subjective / HPI Endocrine: as per Subjective / HPI Hematologic / Lymphatic: as per Subjective / HPI Allergy / Immunological: as per Subjective / HPI Physical Exam Constitutional: WD/WN, vitals as above well developed and well nourished Eyes: PERRL, conjunctivae normal, anicteric sclerae ENMT: external ear and nose normal, oropharynx normal Neck: trachea midline, no thyromegaly Respiratory: normal respiratory effort, lungs clear to auscultation Cardiovascular: Rate/Rhythm: + irregularly irregular Gastrointestinal (Abdomen): normal bowel sounds, soft, nontender, no hepatosplenomegaly reducible LIH, mild tenderness, Musculoskeletal: no cyanosis or clubbing, extremities motor strength 5/5 Skin: no rashes, warm and dry Neurologic: awake Psychiatric: Orientation: alert and oriented x 3 Results & Data ([facility]) Vital Signs (Past 12 Hours) Vital Signs Temp Pulse Pulse Resp BP BP Pulse Ox 07/24/20 11:00 65 20 112/67 91 07/24/20 07:28 78 07/24/20 07:25 58 L 18 90 07/24/20 06:09 36.4 C L 76 16 135/83 90 07/24/20 03:00 36.5 C 68 20 94/59 L 92 Laboratory Results Abnormal lab results 07/24/20 07/24/20 Range/Units 05:55 05:55 RBC 4.03 L (4.7-6.1) M/uL Hgb 12.3 L (14.0-18.0) g/dL Hct 37.2 L (42-52) % Potassium 3.3 L D (3.5-5.1) mmol/L Chloride 109 H (98-107) mmol/L Calcium 7.7 L (8.5-10.1) mg/dl
[2020-07-24] MEDS: FLUTICASONE/VILANTEROL 200/25MCG 14 PUFFS/INHALER INH SCH (20:18)
[2020-07-24] MEDS: ALFUZOSIN HCL 10 MG TAB PO SCH (20:20)
[2020-07-24] MEDS: VERAPAMIL HCL 240 MG TABCR PO SCH (20:20)
[2020-07-24] MEDS: FINASTERIDE 5 MG TAB PO SCH (20:21)
[2020-07-24] MEDS: MONTELUKAST SODIUM 10 MG TABLET PO SCH (20:22)
[2020-07-25] MEDS: D5W AND NSS 1,000 ML IV SCH ×3 (02:21→21:43)
[2020-07-25] MEDS: POLYETHYLENE (MIRALAX) 17 GM PACK PO SCH ×3 (02:22→16:51)
[2020-07-25] MEDS: AMPICILLIN/SULBACTAM SOD 3,000 MG in 0.9 % SODIUM CHLORIDE 100 ML IV SCH ×4 (03:44→21:13)
[2020-07-25] MEDS: LEVOTHYROXINE SODIUM 50 MCG TABLET PO SCH (05:50)
[2020-07-25 06:19] LABS: Hematocrit (blood only) 36.8 % (42-52); Hemoglobin 12.2 g/dL (14.0-18.0); Mean Corpuscular Hemoglobin 30.5 pg (25-34); Mean Corpuscular Hgb Conc 33.2 g/dL (32-36); Mean Platelet Volume 9.7 fL (7.4-10.4); Platelet Count 180 K/uL (130-400); RDW Coefficient of Variation 13.4 % (11.5-14.5); RDW Standard Deviation 44.9 fL (36.4-46.3); White Blood Count 5.73 K/uL (4.8-10.8)
[2020-07-25 06:47] LABS: BUN Creatinine Ratio 7.7 (10-20); Calcium 8.1 mg/dl (8.5-10.1); Creatinine Clr Calc Pharmacy 67.1 ml/min; Est GFR (Non-African American) 71.6; Potassium 3.4 mmol/L (3.5-5.1)
[2020-07-25] MEDS: SODIUM CHLOR 7% 4 ML NEB INH SCH ×2 (07:26→19:41)
[2020-07-25] MEDS: IPRATROPIUM BROMIDE NEB SOLN 0.02% 2.5 ML VIAL NEB SCH ×3 (07:26→19:41)
[2020-07-25] MEDS: LEVALBUTEROL 1.25MG/0.5ML NEB INH SCH ×3 (07:26→19:41)
[2020-07-25] MEDS: DOCUSATE SODIUM 100 MG CAP PO SCH ×2 (08:31→20:28)
[2020-07-25] MEDS: LORATADINE 10 MG TAB PO SCH (08:31)
[2020-07-25] MEDS: bisacodyL 10 MG SUPP PR SCH ×2 (08:31→21:18)
[2020-07-25] MEDS: MULTIVITAMIN TAB PO SCH (08:31)
[2020-07-25] MEDS ORDERED: MAGNESIUM CITRATE 296 ML/BTL PO STA (09:10)
--- NOTE | 2020-07-25 09:17 | Hospitalist Progress Note ---
Date of Service July 25, 2020 Assessment & Plan (1) History of MAC infection: (2) MARU on CPAP: (3) Chronic atrial fibrillation: (4) Incarcerated inguinal hernia: (5) SBO (small bowel obstruction): (6) COPD (chronic obstructive pulmonary disease) case management patient: (7) GERD (gastroesophageal reflux disease): (8) PMR (polymyalgia rheumatica): (9) Pacemaker: (10) BPH (benign prostatic hypertrophy): (11) CKD (chronic kidney disease) stage 3, GFR 30-59 ml/min: ASSESSMENT AND PLAN: This an 89-year-old male who presents with abdominal pain and found to have small-bowel obstruction. 1. Abdominal pain, small-bowel obstruction, question of incarcerated inguinal hernia but later it was reducible, surgery is on the case. Plan for conservative management. Still wo large BM. KUB showed he is still constipated. Add Mag Citrate x 1 300 ml, On Full Liquids., IV fluids, IV antiemetics, IV morphine p.r.n. Possible Surgery soon, Plavix held, can't give ASA sec to Allergy to NSAIDS 2. Possible aspiration pneumonia, possible urinary tract infection. Continue with Unasyn. Follow the cultures. 3. 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 The patient is on verapamil. Not on anticoagulation secondary to recurrent spontaneous hematomas. on Plavix. Will continue to monitor. 4. History of TIA. On Plavix. 5. BPH. On finasteride. 6. Asthma. Continue home inhalers and nebs. 7. Sleep apnea, on CPAP. 8. Chronic kidney disease stage III, creatinine 1.03. We will follow the labs. 9. Gastroesophageal reflux disease: On Protonix. 10. History of polymyalgia rheumatica. 11. Hypothyroidism. Continue Synthroid. 12. Constipation. Stool softeners. May need enema. 13. Deep venous thrombosis prophylaxis, sequential compression devices for now. 14. Disposition: Closely monitor in the med tele. Level 1 full code. Expect to discharge home. PT and OT prior to discharge. director of anesthesia services to help with discharge planning. Labs checked Miralax q8, Dulcolax 10 [place] q12h, Mag Citrate x 1 dose ROS-No Headache, No Visual Changes, No Nausea, No Vomiting, No Fever, No Chills, No Neck Pain or Stiffness, No Chest Pain, No Palpitations, No SOB, No VENTURA, no Cough, No Sputum, + Wheezing, No Abdominal Pain, No Diarrhea, No Hematemesis, No Hemoptysis, No Unexpected Weight Loss, No Flank pain, No Melena, No Hematochezia, No Frequency, No Urgency, No Burning, No Hematuria, No Rashes, No Diaphoresis. Appetite is Normal Physical Exam Gen-AAO x 3, NAD, Afebrile Head-NCAT, EOMI, PERRLA, Anicteric Sclera, No Posterior Pharyngeal Erythema Neck-Supple, No JVD, No Thyromegaly, No Masses, No LAD, No Bruits Lungs-Breathing better, No Rales, No Rhonchi, No Crepitus, mild wheeze Chest-No S4, +S1, +S2, No S3, No Murmurs, No Rubs, No Gallops, No Ectopy Abdomen-Soft, Bowel Sounds Present, Non Tender, Non Distended, No Hepatomegaly, No Splenomegaly, No Palpable Masses, No Rebound, No Rigidity, No Guarding Musculoskeletal-Full Range of Motion Bilaterally, No CVAT Extremities-No Cyanosis, No Clubbing, No Edema Nuero-Cranial Nerves II-XII grossly intact, Motor WNL, DTRs WNL, Strength WNL, Non Focal Psych-Normal Mood Admission and Anticipated Discharge Date Admission Date: July 22, 2020 Results & Data Results & Data ([facility]) Vital Signs (Past 12 Hours) Vital Signs Temp Pulse Pulse Resp BP Pulse Ox 07/25/20 08:00 36.3 C L 64 18 96/42 L 96 07/25/20 07:26 70 19 95 07/25/20 04:00 36.1 C L 64 18 102/66 94 07/25/20 03:25 78 07/24/20 23:47 36.3 C L 83 20 104/58 L 92
[2020-07-25] MEDS: PANTOprazole 40 MG in SYRINGE 0 ML IV SCH ×2 (09:24→20:29)
--- NOTE | 2020-07-25 10:36 | Cardiology Consultation ---
Date of Consultation July 25, 2020 Assessment & Plan (1) Preop cardiovascular exam: (2) Atrial fibrillation: (3) Pacemaker: (4) Incarcerated inguinal hernia: (5) SBO (small bowel obstruction): 89-year-old patient considered moderate perioperative risk for inguinal surgery. No further cardiac testing or intervention would lower his risk at this time. Preoperative ECG ordered. Recent pacemaker interrogation reviewed demonstrating normal function with adequate battery reserve. Standard precautions recommended perioperatively. Antiplatelet therapy on hold in anticipation of surgery. Consider pulmonary consultation for evaluation of wheezing, cough, and management of reactive airways disease/pulmonary optimization prior to surgery. Thank you for allowing me to participate in the care of your patient. I will continue to follow patient during hospitalization. Addendum: ECG demonstrates atrial fibrillation with right bundle branch block and possible age-indeterminate inferior infarct. No change when compared to prior ECG dated 2017. History of Present Illness Reason for Consultation: Preop cardiovascular evaluation Requesting Physician: Dr. Mcnamara Attending Physician: Janusz Mcnamara DO History of Present Illness 89-year-old patient admitted 07/22/2020 secondary to abdominal pain, small bowel obstruction, and incarcerated inguinal hernia. Hernia initially reproducible. Surgical consultation recommends open repair 07/26/2020. Complex cardiovascular history listed below. Patient feeling well from a cardiovascular perspective. Denies chest discomfort or unusual shortness of breath. No palpitations, lightheadedness, dizziness, or thopnea, PND, or lower extremity edema. Reports issues related to chronic asthma. Uses a flutter valve, shaker vest, and nebulizers daily at home. Notes chronic cough with scant sputum production. Wears CPAP at night with 2 L of oxygen. Currently resting comfortably. No conversational dyspnea. No fever, chills, or sick contacts. Abdominal and groin discomfort controlled. No recent unstable dysrhythmia, decline in functional capacity, or decompensated heart failure. Review of the [facility] medical record demonstrates normal pacemaker function with adequate battery life per recent interrogation. Carries history of chronic rate controlled atrial fibrillation without anticoagulation due to contraindications listed below. Plavix currently on hold in anticipation of open hernia repair 07/26/2020. Complex cardiovascular history includin. Cardiac conduction system disease, status post dual-chamber pacemaker in February of 2006. Generator exchange on August 15, 2014, [employer] adapted [id number]. 2. Atrial flutter status post ablation in January 2016. 3. Past paroxysmal and now chronic atrial fibrillation 4. Contraindications to anticoagulation, recurrent spontaneous hematomas. 5. Prior transient ischemic attack 6. Mild abdominal aortic aneurysm, 3.1 cm via January 2020 ultrasound, 2.[address] A/P 7. Asthmatic lung disease, chronic bronchiectasis. Followed by Dr. Cho 8. Obstructive sleep apnea, CPAP therapy 9. Stage III chronic kidney disease. 10. Polymyalgia rheumatica 11. BPH 12. GERD 13. Left inguinal hernia Allergies Allergy/AdvReac Type Severity Reaction Status Date / Time aspirin Allergy Severe TIGHTNESS Verified 07/22/20 19:42 IN CHEST NSAIDS (Non-Steroidal Allergy Severe TIGHTNESS Verified 07/22/20 19:42 Anti-Inflamma IN THE CHEST rofecoxib Allergy Severe TIGHTNESS Verified 07/22/20 19:42 IN CHEST ibuprofen Allergy Intermediate Asthma Verified 07/22/20 19:42 Symptoms Home Medications Medication Instructions Recorded Confirmed Type Calcium 600 + D(3) 1 tab PO QAM 06/02/18 07/22/20 History clopidogrel [Plavix] 75 mg PO QAM 06/02/18 07/22/20 History finasteride 5 mg PO HS 06/02/18 07/22/20 History loratadine 10 mg PO QAM 06/02/18 07/22/20 History montelukast [Singulair] 10 mg PO HS 06/02/18 07/22/20 History multivitamin [Multiple Vitamins] 1 tab PO QAM 06/02/18 07/22/20 History alfuzosin 10 mg tablet,extended 10 mg PO HS 06/02/19 07/22/20 History release 24 hr budesonide-formoterol HFA 160 2 puffs INH BID #10.2 gm 07/01/19 07/22/20 Rx mcg-4.5 mcg/actuation aerosol inhaler levalbuterol tartrate 45 2 puff INHALATION Q8H PRN #15 gm 09/17/19 07/22/20 Rx mcg/actuation aerosol inhaler diclofenac sodium 2 g TOPICAL QID PRN 02/28/20 07/22/20 History docusate sodium 100 mg PO BID 02/28/20 07/22/20 History levothyroxine 50 mcg PO QAM 02/28/20 07/22/20 History verapamil 240 mg PO HS 02/28/20 07/22/20 History ipratropium bromide 0.02 % See Rx Instructions .ROUTE 03/22/20 07/22/20 Rx solution for inhalation .COMPLEX #300 milliliter pantoprazole 40 mg tablet,delayed 40 mg PO BID #60 tab 05/29/20 07/22/20 Rx release azithromycin [Zithromax Z-Kwan] See Rx Instructions .ROUTE .COMPLEX 07/22/20 07/22/20 History glucosamine-chondroitin [Osteo 2 tab PO QAM 07/22/20 07/22/20 History Bi-Flex] levalbuterol HCl 1.25 mg INH TID PRN 07/22/20 07/22/20 History plecanatide [Trulance] 3 mg PO DAILY 07/22/20 07/22/20 History prednisone See Rx Instructions .ROUTE .COMPLEX 07/22/20 07/22/20 History sodium chloride [Pulmosal] 4 ml INHALATION TID 07/22/20 07/22/20 History Patient History Medical History Asthma Atrial fibrillation BPH (benign prostatic hyperplasia) Chronic kidney disease GERD (gastroesophageal reflux disease) On home oxygen therapy MARU on CPAP Pacemaker HX OF SYMPTOMATIC BRADYCARDIA WITH PAUSES Transient ischemic attack (TIA) 20+ YEARS AGO, NO RESIDUAL. Surgical History History of cardiac radiofrequency ablation History of cataract extraction with lens replacement LEFT History of cholecystectomy History of pacemaker Status post cataract extraction Family History Other Asthma Heart disease Social History Smoking Status: Never smoker Second Hand Exposure: Yes; Do You Dip or Chew Tobacco: No; Tobacco Cessation Education Requested by Patient: No Hx Alcohol Use: No Hx Substance Use: No Preferred Language: Irish Communication Ability: Effective Tail Board Man Required: No Beliefs That Will Affect Care: None marital status: / Current Living Situation: Alone Current Living Situation Comment: lives alone;has caregivers for 2 hours, 5 days a week Other Information That Helps Us Care for You: No Feels Safe at Home: Yes Safety Concerns: Feels Safe At This Time Assistive Devices: None Review of Systems Review of Systems: All systems reviewed & are unremarkable except as noted in HPI & below Physical Exam Constitutional: well developed and well nourished; no acute distress and not ill appearing Respiratory: Auscultation: + rhonchi (Scattered bilateral, mild improvement with cough) and + wheezes (B/L expiratory); no crackles and no rales Cardiovascular: Rate/Rhythm: + irregularly irregular Heart Sounds: normal S1 and normal S2; no murmur and no cardiac rub Vessels: radial pulses present; no JVD and no carotid bruit Extremities: no edema Gastrointestinal (Abdomen): Percussion/Palpation: + abdomen tender (Mild diffuse) and + hernia (Left inguinal); no guarding and abdomen not rigid Skin: no rashes, warm and dry Neurologic: CN's II-XI intact bilaterally and moves all extremities Motor/Sensory: no tremor Psychiatric: A+Ox3, euthymic affect Results & Data ([facility]) Vital Signs (Past 12 Hours) Vital Signs Temp Pulse Pulse Resp BP Pulse Ox 07/25/20 08:00 36.3 C L 64 18 96/42 L 96 07/25/20 07:26 70 19 95 07/25/20 04:00 36.1 C L 64 18 102/66 94 07/25/20 03:25 78 07/24/20 23:47 36.3 C L 83 20 104/58 L 92
[2020-07-25 10:53] LABS: Allen Test Pos (Pos); Base Excess ABG -1.6 mEq/L (-9-1.8); HCO3 ABG 23 mmol/L (19-24); PCO2 ABG 36 mmHg (35-46); PO2 ABG 64 mmHg (80-95); pH ABG 7.41 (7.35-7.45)
--- NOTE | 2020-07-25 11:23 | XRay Report ---
XR chest 1V portable HISTORY: Shortness of breath. COMPARISON: Chest 02/26/2020. FINDINGS: No pneumothorax. The heart remains mildly enlarged. Is left-sided dual-chamber pacemaker. M ild diffuse interstitial thickening persists. This could be chronic or represent mild congestive [place]yers ge. Surgical clips within the right axilla. Old, healed right clavicle fracture. No significant pleur al effusions. IMPRESSION: Mild diffuse interstitial thickening, unchanged. This could be chronic or represent mild developing p ulmonary edema. ACT 112: Negative or not required by law. Electronically signed by: Thee Hernandez M.D. 07/25/2020 11:22 AM
--- NOTE | 2020-07-25 12:37 | Surgery Progress Note ---
Date of Service doing fine, no significant pain on right groin, no nausea, no vomiting, July 25, 2020 Assessment & Plan (1) Left inguinal hernia: pt is a 89 year-old male who was admitted to hospital for left inguinal hernia with SBO, IMP: left inguinal hernia, plan, the hernia was reduced, no emergent surgery repair hernia now, recommend- hold plavix for 5 days, pt can take 81 mg ASA once a day now, plan to do open repair left inguinal hernia with mesh under sedation + local next week, D/W benefits, risks and alternatives of the surgery, pt understood, he agrees with the plan, I answered all questions, [employer] consult for pre-op cardiac clearance, clear diet today, will F/U 07/24/2020, 11:58AM stable, LAQUITA, I recommend to do open repair left inguinal hernia with mesh under sedation + local on 07/26/2020, D/W benefits, risks and alternatives of the surgery, pt understood, he agrees with the surgery, I answered all questions, 07/25/2020, 12:33PM doing fine, pt will have open repair left inguinal hernia with mesh under sedation + local, D/W benefits, risks and alternatives of the surgery, the risks - infection, bleeding, hernia recurrence, complications relate to mesh, IL, DVT, stroke, , pt understood, he agrees with the surgery, I answered all questions, NPO after MN, hold iv heparin in morning, pt can take po meds with sip water, IV fluid Admission and Anticipated Discharge Date Admission Date: July 22, 2020 Review of Systems Constitutional: as per Subjective / HPI Eyes: as per Subjective / HPI Ear, Nose, Mouth, Throat: as per Subjective / HPI Respiratory: as per Subjective / HPI COPD, asthma, bronchiectasis Cardiovascular: as per Subjective / HPI Additional Comments: A-fib, heart block, pacemaker Gastrointestinal: as per Subjective / HPI LIH, GERD, S/P cholecystectomy Genitourinary: + as per Subjective / HPI Musculoskeletal: as per Subjective / HPI Integumentary: as per Subjective / HPI Neurologic: as per Subjective / HPI TIA Psychiatric: as per Subjective / HPI Endocrine: as per Subjective / HPI Hematologic / Lymphatic: as per Subjective / HPI Allergy / Immunological: as per Subjective / HPI Physical Exam Constitutional: WD/WN, vitals as above well developed and well nourished Eyes: PERRL, conjunctivae normal, anicteric sclerae ENMT: external ear and nose normal, oropharynx normal Neck: trachea midline, no thyromegaly Respiratory: normal respiratory effort, lungs clear to auscultation Cardiovascular: Rate/Rhythm: + irregularly irregular Gastrointestinal (Abdomen): normal bowel sounds, soft, nontender, no hepatosplenomegaly reducible Left inguinal hernia, no tenderness, Musculoskeletal: no cyanosis or clubbing, extremities motor strength 5/5 Skin: no rashes, warm and dry Neurologic: awake Psychiatric: Orientation: alert and oriented x 3 Results & Data ([facility]) Vital Signs (Past 12 Hours) Vital Signs Temp Pulse Pulse Resp BP Pulse Ox 07/25/20 11:41 36.3 C L 72 20 112/75 95 07/25/20 08:00 36.3 C L 64 18 96/42 L 96 07/25/20 07:26 70 19 95 07/25/20 04:00 36.1 C L 64 18 102/66 94 07/25/20 03:25 78 Laboratory Results Abnormal lab results 07/25/20 07/25/20 07/25/20 Range/Units 05:36 05:36 10:43 RBC 4.00 L (4.7-6.1) M/uL Hgb 12.2 L (14.0-18.0) g/dL Hct 36.8 L (42-52) % ABG pO2 64 L (80-95) mmHg Potassium 3.4 L (3.5-5.1) mmol/L Chloride 110 H (98-107) mmol/L BUN/Creatinine Ratio 7.7 L (10-20) Calcium 8.1 L (8.5-10.1) mg/dl
[2020-07-25] MEDS ORDERED: Nursing to Pharmacy Communication SCH (13:00)
[2020-07-25] MEDS: D5W AND 1/2NSS + 20MEQ KCL 20 MEQ/1,000 ML BAG IV SCH (13:09)
--- NOTE | 2020-07-25 14:05 | Pulmonary Consultation ---
Date of Consultation July 25, 2020 Assessment & Plan (1) COPD (chronic obstructive pulmonary disease) case management patient: EGD 07/25/2020: 7.41/36/64 on room air Chest x-ray 07/25/2020 personally reviewed: Portable film good inspiratory effort, bilateral costophrenic and cardiophrenic angles are clean, there is mild interstitial marking thickening appreciated bilaterally, mild increase in the right hilum, dual-chamber pacemaker in place, no clear infiltrate appreciated. CT chest 03/29/2018 personally reviewed: Patient has bronchiectasis appreciated in the lower lobe more on the left lower lobe diffuse mosaicism is appreciated especially in the upper lobes, air trapping bilateral apical scarring, minimal mediastinal adenopathy especially station 4L --Bilateral lower lobe bronchiectasis Etiology is unclear Patient is on chest vest therapy at home along with flutter valve Continue with flutter valve and chest PT while the patient is in the hospital along with Mucinex Patient has been brought multiple times by Dr. Gonzalez as an outpatient. He had grown RONDA 06/05/2018 once but was never treated for it. Also has Pseudomonas in the sputum in the past pansensitive 06/05 2018. Has been on azithromycin as well as levofloxacin in the past. --MARU Continue with CPAP while in the hospital Patient has his own CPAP. --Plan There is no absolute contraindication from pulmonary perspective for the patient to have surgery. Given the history of MARU would recommend BiPAP/CPAP post extubation. Recommend 6 mL/kg tidal volume. Continue with flutter valve along with hypertonic saline nebulized. Please note the above document was generated using voice recognition software. It may contain grammatical, syntax or spelling errors.Any formal questions or concerns about the content, text or information contained within the body of this dictation should be directly addressed to the provider for clarification. (2) MARU on CPAP: History of Present Illness Attending Physician: Jnausz Mcnamara DO History of Present Illness 89-year-old male with past medical history of chronic respiratory failure on oxygen at home, bronchiectasis, MARU on CPAP chronic A. fib, CKD, history of RONDA who was admitted to the hospital because of having abdominal pain and being constipated. Patient was found to have hernia. He scheduled to have surgery performed tomorrow. Pulmonary were consulted for preop clearance. At the time of examination patient denies any complaints of shortness of breath. No chest pain. Patient does have chronic cough. He uses flutter valve as well as chest vest therapy at home on a regular basis. Denies any hemoptysis. No fever or chills. No headache, no dizziness. Good appetite. No abdominal pain today. 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 No exposure to any chemicals or fumes Patient was diagnosed with asthma at the age of 60. There is family history of asthma. Allergies Allergy/AdvReac Type Severity Reaction Status Date / Time aspirin Allergy Severe TIGHTNESS Verified 07/22/20 19:42 IN CHEST NSAIDS (Non-Steroidal Allergy Severe TIGHTNESS Verified 07/22/20 19:42 Anti-Inflamma IN THE CHEST rofecoxib Allergy Severe TIGHTNESS Verified 07/22/20 19:42 IN CHEST ibuprofen Allergy Intermediate Asthma Verified 07/22/20 19:42 Symptoms Home Medications Medication Instructions Recorded Confirmed Type Calcium 600 + D(3) 1 tab PO QAM 06/02/18 07/22/20 History clopidogrel [Plavix] 75 mg PO QAM 06/02/18 07/22/20 History finasteride 5 mg PO HS 06/02/18 07/22/20 History loratadine 10 mg PO QAM 06/02/18 07/22/20 History montelukast [Singulair] 10 mg PO HS 06/02/18 07/22/20 History multivitamin [Multiple Vitamins] 1 tab PO QAM 06/02/18 07/22/20 History alfuzosin 10 mg tablet,extended 10 mg PO HS 06/02/19 07/22/20 History release 24 hr budesonide-formoterol HFA 160 2 puffs INH BID #10.2 gm 07/01/19 07/22/20 Rx mcg-4.5 mcg/actuation aerosol inhaler levalbuterol tartrate 45 2 puff INHALATION Q8H PRN #15 gm 09/17/19 07/22/20 Rx mcg/actuation aerosol inhaler diclofenac sodium 2 g TOPICAL QID PRN 02/28/20 07/22/20 History docusate sodium 100 mg PO BID 02/28/20 07/22/20 History levothyroxine 50 mcg PO QAM 02/28/20 07/22/20 History verapamil 240 mg PO HS 02/28/20 07/22/20 History ipratropium bromide 0.02 % See Rx Instructions .ROUTE 03/22/20 07/22/20 Rx solution for inhalation .COMPLEX #300 milliliter pantoprazole 40 mg tablet,delayed 40 mg PO BID #60 tab 05/29/20 07/22/20 Rx release azithromycin [Zithromax Z-Kwan] See Rx Instructions .ROUTE .COMPLEX 07/22/20 History glucosamine-chondroitin [Osteo 2 tab PO QAM 07/22/20 07/22/20 History Bi-Flex] levalbuterol HCl 1.25 mg INH TID PRN 07/22/20 07/22/20 History plecanatide [Trulance] 3 mg PO DAILY 07/22/20 07/22/20 History prednisone See Rx Instructions .ROUTE .COMPLEX 07/22/20 07/22/20 History sodium chloride [Pulmosal] 4 ml INHALATION TID 07/22/20 07/22/20 History Patient History Medical History Asthma Atrial fibrillation BPH (benign prostatic hyperplasia) Chronic kidney disease GERD (gastroesophageal reflux disease) On home oxygen therapy MARU on CPAP Pacemaker HX OF SYMPTOMATIC BRADYCARDIA WITH PAUSES Transient ischemic attack (TIA) 20+ YEARS AGO, NO RESIDUAL. Surgical History History of cardiac radiofrequency ablation History of cataract extraction with lens replacement LEFT History of cholecystectomy History of pacemaker Status post cataract extraction Family History Other Asthma Heart disease Social History Smoking Status: Never smoker Second Hand Exposure: Yes; Do You Dip or Chew Tobacco: No; Tobacco Cessation Education Requested by Patient: No Hx Alcohol Use: No Hx Substance Use: No Preferred Language: Setswana Communication Ability: Effective Telecommunications Project Manager Required: No Beliefs That Will Affect Care: None marital status: / Current Living Situation: Alone Current Living Situation Comment: lives alone;has caregivers for 2 hours, 5 days a week Other Information That Helps Us Care for You: No Feels Safe at Home: Yes Safety Concerns: Feels Safe At This Time Assistive Devices: CPAP, Denture - Upper, Denture - Lower, Hearing Aid - Bilateral, Nebulizer, Oxygen - at Night and Walker Review of Systems Review of Systems: All systems reviewed & are unremarkable except as noted in HPI & below Physical Exam Physical Exam: Constitutional: No acute distress HEENT: EOMI, PERRLA Respiratory system: Decreased bilaterally, no wheeze, positive rhonchi appreci ated bilateral lower lobes, mild crackles bilateral lower lobes CVS: S1-S2 positive, no murmurs or gallops Abdomen: Soft, nontender, nondistended, positive bowel sounds x4 Extremities: +2 pulses bilaterally radialis/ dorsalis pedis, no cyanosis, no edema Neuro: Awake alert oriented x3 Psych: Normal mood and affect G/U: No Sheldon Skin: no rashes, warm and dry Lymphatic: + inguinal lymphadenopathy Results & Data Results & Data ([facility]) Vital Signs (Past 12 Hours) Vital Signs Temp Pulse Pulse Resp BP Pulse Ox 07/25/20 13:27 68 21 95 07/25/20 11:41 36.3 C L 72 20 112/75 95 07/25/20 08:00 36.3 C L 64 18 96/42 L 96 07/25/20 07:26 70 19 95 07/25/20 04:00 36.1 C L 64 18 102/66 94 07/25/20 03:25 78 07/25/20 05:36 07/25/20 05:36 PG Care Time/CCT Total # of Minutes Spent Total Time Spent with Patient: Total time spent is greater than 50% in coordination of care (as documented) at patient's floor/unit and/or counseling patient: Coding Level of Care Code 76192 Initial Inpt Care Lvl 3 Diagnoses COPD (chronic obstructive pulmonary disease) case management patient J44.9 MARU on CPAP G47.33; Z99.89
[2020-07-25] MEDS: HEPARIN SOD 5,000 UNIT/0.5 ML VIAL SQ SCH ×2 (14:17→21:13)
[2020-07-25] MEDS: SODIUM CHLOR 7% 4 ML NEB NEB SCH (19:41)
[2020-07-25] MEDS: VERAPAMIL HCL 240 MG TABCR PO SCH (20:28)
[2020-07-25] MEDS: FLUTICASONE/VILANTEROL 200/25MCG 14 PUFFS/INHALER INH SCH (20:29)
[2020-07-25] MEDS: MONTELUKAST SODIUM 10 MG TABLET PO SCH (20:29)
[2020-07-25] MEDS: FINASTERIDE 5 MG TAB PO SCH (20:30)
[2020-07-25] MEDS: ALFUZOSIN HCL 10 MG TAB PO SCH (20:30)
[2020-07-26] MEDS: POLYETHYLENE (MIRALAX) 17 GM PACK PO SCH ×3 (01:23→18:36)
[2020-07-26] MEDS: AMPICILLIN/SULBACTAM SOD 3,000 MG in 0.9 % SODIUM CHLORIDE 100 ML IV SCH ×4 (03:51→21:02)
[2020-07-26 05:54] LABS: Hematocrit (blood only) 37.2 % (42-52); Hemoglobin 12.5 g/dL (14.0-18.0); Mean Corpuscular Hemoglobin 30.7 pg (25-34); Mean Corpuscular Hgb Conc 33.6 g/dL (32-36); Mean Corpuscular Volume 91.4 fL (80-100); Mean Platelet Volume 9.5 fL (7.4-10.4); Platelet Count 181 K/uL (130-400); RDW Coefficient of Variation 13.4 % (11.5-14.5); RDW Standard Deviation 44.4 fL (36.4-46.3); Red Blood Count 4.07 M/uL (4.7-6.1); White Blood Count 4.61 K/uL (4.8-10.8)
[2020-07-26 06:01] LABS: INR 1.1 (0.9-1.1); Prothrombin Time 11.9 Seconds (9.0-12.0)
[2020-07-26] MEDS: LEVOTHYROXINE SODIUM 50 MCG TABLET PO SCH (06:10)
[2020-07-26 06:14] LABS: Calcium 8.1 mg/dl (8.5-10.1); Creatinine Clr Calc Pharmacy 69.4 ml/min; Est GFR (African American) 86.3; Est GFR (Non-African American) 74.5; Potassium 3.5 mmol/L (3.5-5.1)
[2020-07-26] MEDS: IPRATROPIUM BROMIDE NEB SOLN 0.02% 2.5 ML VIAL NEB SCH ×3 (06:57→19:26)
[2020-07-26] MEDS: LEVALBUTEROL 1.25MG/0.5ML NEB INH SCH ×3 (06:57→19:26)
[2020-07-26] MEDS: SODIUM CHLOR 7% 4 ML NEB INH SCH ×4 (06:57→22:02)
[2020-07-26] MEDS: LORATADINE 10 MG TAB PO SCH (08:13)
[2020-07-26] MEDS: MULTIVITAMIN TAB PO SCH (08:13)
[2020-07-26] MEDS: PANTOprazole 40 MG in SYRINGE 0 ML IV SCH (08:13)
[2020-07-26] MEDS: D5W AND 1/2NSS + 20MEQ KCL 20 MEQ/1,000 ML BAG IV SCH (08:13)
[2020-07-26] MEDS: DOCUSATE SODIUM 100 MG CAP PO SCH ×2 (08:13→21:02)
[2020-07-26] MEDS: bisacodyL 10 MG SUPP PR SCH ×2 (08:13→21:02)
--- NOTE | 2020-07-26 08:54 | Hospitalist Progress Note ---
Date of Service July 26, 2020 Assessment & Plan (1) History of MAC infection: (2) MARU on CPAP: (3) Chronic atrial fibrillation: (4) Incarcerated inguinal hernia: (5) SBO (small bowel obstruction): (6) COPD (chronic obstructive pulmonary disease) case management patient: (7) GERD (gastroesophageal reflux disease): (8) PMR (polymyalgia rheumatica): (9) Pacemaker: (10) BPH (benign prostatic hypertrophy): (11) CKD (chronic kidney disease) stage 3, GFR 30-59 ml/min: ASSESSMENT AND PLAN: This an 89-year-old male who presents with abdominal pain and found to have small-bowel obstruction. 1. Abdominal pain, small-bowel obstruction, question of incarcerated inguinal hernia but later it was reducible, surgery consulted, plan for surgical repair 07/26/2020. Cardiology and Pulmonary medicine consulted for pre-op eval. Pt had a BM yesterday 07/25 after using laxatives. (Mag Citrate) IV fluids, IV antiemetics, IV morphine p.r.n. Plavix held, can't give ASA sec to Allergy to NSAIDS Per pulmonary: There is no absolute contraindication from pulmonary perspective for the patient to have surgery. Given the history of MARU would recommend BiPAP/CPAP post extubation. Recommend 6 mL/kg tidal volume. Continue with flutter valve along with hypertonic saline nebulized. 2. Possible aspiration pneumonia, possible urinary tract infection. Continue with Unasyn. Follow the cultures. Urine cultx - mixed marisabel, likely skin organism 3. 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 The patient is on verapamil. Not on anticoagulation secondary to recurrent spontaneous hematomas. on Plavix. Will continue to monitor. 4. History of TIA. On Plavix. 5. BPH. On finasteride. 6. Asthma. Continue home inhalers and nebs. 7. Sleep apnea, on CPAP. 8. Chronic kidney disease stage III, creatinine 1.03. We will follow the labs. Mild hypokalemia replete and monitor 9. Gastroesophageal reflux disease: On Protonix. 10. History of polymyalgia rheumatica. 11. Hypothyroidism. Continue Synthroid. 12. Constipation. Stool softeners. May need enema. Deep venous thrombosis prophylaxis, sequential compression devices for now. Disposition: Closely monitor in the med tele. PT and OT prior to discharge. food services manager to help with discharge planning. Admission and Anticipated Discharge Date Admission Date: July 22, 2020 Subjective No acute events overnight. Pt is laying in bed in NAD. Denies any chest pain, abd. pain, incr. shortness of breath. Had BM yesterday after having laxatives. Plan for surgery later today. Seen by cardiology and pulm. for pre-op eval. Review of Systems Review of Systems: All systems reviewed & are unremarkable except as noted in HPI & below Constitutional: no fever and no chills Respiratory: + cough (at baseline) and + dyspnea (at baseline) Cardiovascular: no chest pain, no palpitations and no edema Gastrointestinal: no abdominal pain, no nausea and no vomiting Physical Exam Physical Exam: Gen- elderly male, laying in bed, in NAD, hard of hearing, AAO x 3, NAD, Afebrile Head- NCAT, EOMI, Anicteric Sclera Neck- Supple, No JVD Lungs- Breathing better, No Rales, + mild Rhonchi, diminished breath sounds at bases Chest- irregularly irregular, nl S1, nl S2, no murmur Abdomen- Soft, Bowel Sounds Present, Non Tender to palpation, Non Distended, L inguinal hernia present, No Rigidity, No Guarding Musculoskeletal- Full Range of Motion Bilaterally Extremities- No Cyanosis, No Clubbing, No Edema Neuro- alert and oriented, answering questions appropriately, hard of hearing, speech fluent, no facial asymmetry, moves extremities spontaneously Psych-Normal Mood Results & Data Results & Data ([facility]) Vital Signs (Past 12 Hours) Vital Signs Temp Pulse Pulse Resp BP Pulse Ox 07/26/20 06:57 72 18 95 07/26/20 03:40 36.4 C L 76 20 112/67 92 07/26/20 00:37 108 H 07/25/20 23:33 36.9 C 62 18 101/70 93 Laboratory Results 07/26/20 07/26/20 07/26/20 Range/Units 05:36 05:36 05:36 WBC 4.61 L (4.8-10.8) K/uL RBC 4.07 L (4.7-6.1) M/uL Hgb 12.5 L (14.0-18.0) g/dL Hct 37.2 L (42-52) % MCV 91.4 (80-100) fL MCH 30.7 (25-34) pg MCHC 33.6 (32-36) g/dL RDW Std Deviation 44.4 (36.4-46.3) fL RDW Coeff of Lawson 13.4 (11.5-14.5) % Plt Count 181 (130-400) K/uL MPV 9.5 (7.4-10.4) fL PT 11.9 (9.0-12.0) Seconds INR 1.1 (0.9-1.1) ABG pH (7.35-7.45) ABG pCO2 (35-46) mmHg ABG pO2 (80-95) mmHg ABG HCO3 (19-24) mmol/L ABG O2 Saturation (90-95) % ABG Base Excess (-9-1.8) mEq/L Dheeraj Test (Pos) Barometric Pressure mm/Hg Oxygen Given Sodium 139 (136-145) mmol/L Potassium 3.5 (3.5-5.1) mmol/L Chloride 108 H (98-107) mmol/L Carbon Dioxide 26 (21-32) mmol/L Anion Gap 5.0 (3-11) BUN 5 L (7-18) mg/dl Creatinine 0.91 (0.6-1.4) mg/dl Est Cr Clr Drug Dosing 69.4 ml/min Est GFR ( Amer) 86.3 Est GFR (Non-Af Amer) 74.5 BUN/Creatinine Ratio 6.0 L (10-20) Glucose 95 (70-99) mg/dl Calcium 8.1 L (8.5-10.1) mg/dl 07/25/20 Range/Units 10:43 WBC (4.8-10.8) K/uL RBC (4.7-6.1) M/uL Hgb (14.0-18.0) g/dL Hct (42-52) % MCV (80-100) fL MCH (25-34) pg MCHC (32-36) g/dL RDW Std Deviation (36.4-46.3) fL RDW Coeff of Lawson (11.5-14.5) % Plt Count (130-400) K/uL MPV (7.4-10.4) fL PT (9.0-12.0) Seconds INR (0.9-1.1) ABG pH 7.41 (7.35-7.45) ABG pCO2 36 (35-46) mmHg ABG pO2 64 L (80-95) mmHg ABG HCO3 23 (19-24) mmol/L ABG O2 Saturation 93.0 (90-95) % ABG Base Excess -1.6 (-9-1.8) mEq/L Dheeraj Test Pos (Pos) Barometric Pressure 731.7 mm/Hg Oxygen Given ROOM AIR Sodium (136-145) mmol/L Potassium (3.5-5.1) mmol/L Chloride (98-107) mmol/L Carbon Dioxide (21-32) mmol/L Anion Gap (3-11) BUN (7-18) mg/dl Creatinine (0.6-1.4) mg/dl Est Cr Clr Drug Dosing ml/min Est GFR ( Amer) Est GFR (Non-Af Amer) BUN/Creatinine Ratio (10-20) Glucose (70-99) mg/dl Calcium (8.5-10.1) mg/dl Medications Administered Current Inpatient Medications Alfuzosin HCl (Alfuzosin Hcl 10 Mg Tab) 10 mg PO HS DONOVAN Stop: 08/21/20 22:59 Last Admin: 07/25/20 20:30 Dose: 10 mg Documented by: Bisacodyl (Bisacodyl 10 Mg Supp) 10 mg VT Q12H DONOVAN Stop: 08/23/20 09:44 Last Admin: 07/26/20 08:13 Dose: Not Given Documented by: Docusate Sodium (Docusate Sodium 100 Mg Cap) 100 mg PO BID DONOVAN Stop: 08/21/20 22:59 Last Admin: 07/26/20 08:13 Dose: Not Given Documented by: Finasteride (Finasteride 5 Mg Tab) 5 mg PO HS DONOVAN Stop: 08/21/20 22:59 Last Admin: 07/25/20 20:30 Dose: 5 mg Documented by: Fluticasone/Vilanterol (Fluticasone/Vilanterol 200/25mcg 14 Puffs/Inhaler) 1 puffs INH HS DONOVAN Stop: 08/21/20 22:59 Last Admin: 07/25/20 20:29 Dose: 1 puffs Documented by: Ampicillin Sodium/Sulbactam Sodium 3,000 mg/ Sodium Chloride 108 mls @ 200 mls/hr IV Q6H [facility]; Protocol Stop: 07/29/20 21:18 Last Infusion: 07/26/20 04:33 Dose: Infused Documented by: Pantoprazole Sodium 40 mg/ (Syringe) 10 mls @ 5 mls/min IV BID DONOVAN Stop: 08/21/20 22:59 Last Admin: 07/26/20 08:13 Dose: 5 mls/min Documented by: Potassium Chloride/Dextrose/Sod Cl (D5w And 1/2nss + 20meq Kcl) 20 meq in 1,000 mls @ 60 mls/hr IV .[id number] [facility] Stop: 08/24/20 12:59 Last Admin: 07/26/20 08:13 Dose: 60 mls/hr Documented by: Ipratropium Bulger (Ipratropium Bulger Neb Soln 0.02% 2.5 Ml Vial) 0.5 mg NEB TIDR [facility] Stop: 08/22/20 12:59 Last Admin: 07/26/20 06:57 Dose: 0.5 mg Documented by: Levalbuterol HCl (Levalbuterol Tartrate 15 Gm Hfa.Aer.Ad) 2 puffs INH Q8H PRN PRN Reason: Wheezing Stop: 08/21/20 21:18 Levalbuterol HCl (Levalbuterol 1.25mg/0.5ml Neb) 1.25 mg INH TIDR [facility] Stop: 08/22/20 12:59 Last Admin: 07/26/20 06:57 Dose: 1.25 mg Documented by: Levothyroxine Sodium (Levothyroxine Sodium 50 Mcg Tablet) 50 mcg PO DAILYBB [facility] Stop: 08/22/20 06:29 Last Admin: 07/26/20 06:10 Dose: Not Given Documented by: Loratadine (Loratadine 10 Mg Tab) 10 mg PO QAM [facility] Stop: 08/22/20 08:59 Last Admin: 07/26/20 08:13 Dose: 10 mg Documented by: Metoprolol Tartrate (Metoprolol Tartrate 1 Mg/Ml Vial) 2.5 mg IV Q6 PRN PRN Reason: Tachycardia Stop: 08/21/20 21:18 Miscellaneous (Trulance- Order Awaiting Action) 1 ea N/A QS DONOVAN Stop: 08/22/20 00:00 Last Admin: 07/26/20 07:08 Dose: Not Given Documented by: Miscellaneous Information (Ampicillin/Sulbactam Consult Active) 1 ea N/A UD PRN PRN Reason: Consult Stop: 08/21/20 21:20 Montelukast Sodium (Montelukast Sodium 10 Mg Tablet) 10 mg PO HS [facility] Stop: 08/21/20 22:59 Last Admin: 07/25/20 20:29 Dose: 10 mg Documented by: Morphine Sulfate (Morphine Sulfate 4 Mg/Ml 1 Ml Carp\Vial) 3 mg IV Q3H PRN PRN Reason: Pain Stop: 08/05/20 21:18 Last Admin: 07/24/20 06:52 Dose: 3 mg Documented by: Multivitamins (Multivitamin Tab) 1 tab PO QAM [facility] Stop: 08/22/20 08:59 Last Admin: 07/26/20 08:13 Dose: 1 tab Documented by: Ondansetron HCl (Ondansetron Inj 2 Mg/Ml 2 Ml Vial) 4 mg IV Q6H PRN PRN Reason: Nausea Stop: 08/21/20 19:45 Last Admin: 07/23/20 00:45 Dose: 4 mg Documented by: Polyethylene Glycol (Polyethylene (Miralax) 17 Gm Pack) 17 gm PO Q8H [facility] Stop: 08/23/20 09:44 Last Admin: 07/26/20 08:14 Dose: Not Given Documented by: Sodium Chloride (Sodium Chlor 7% 4 Ml Neb) 4 ml INH TIDR [facility] Stop: 08/21/20 22:59 Last Admin: 07/26/20 06:57 Dose: 4 ml Documented by: Sodium Chloride (Sodium Chlor 7% 4 Ml Neb) 4 ml NEB BIDR DONOVAN Stop: 08/24/20 18:59 Last Admin: 07/25/20 19:41 Dose: 4 ml Documented by: Verapamil HCl (Verapamil Hcl 240 Mg Tabcr) 240 mg PO HS [facility] Stop: 08/21/20 20:59 Last Admin: 07/25/20 20:28 Dose: 240 mg Documented by:
[2020-07-26] MEDS: SODIUM CHLOR 7% 4 ML NEB NEB SCH (09:28)
[2020-07-26] MEDS: POTASSIUM CHLORIDE / WTR 10 MEQ/100 ML PLCT IV SCH ×2 (10:17→11:36)
--- NOTE | 2020-07-26 11:31 | Cardiology Progress Note ---
Date of Service July 26, 2020 Assessment & Plan (1) Preop cardiovascular exam: (2) Atrial fibrillation: (3) Pacemaker: (4) Incarcerated inguinal hernia: (5) SBO (small bowel obstruction): 89-year-old patient considered moderate perioperative risk for inguinal surgery. No cardiovascular contraindication to hernia repair. No further cardiac testing or intervention would lower his risk at this time. Preoperative ECG stable. Recent pacemaker interrogation reviewed demonstrating normal function with adequate battery reserve. Standard precautions recommended perioperatively. Antiplatelet therapy on hold in anticipation of surgery. Admission and Anticipated Discharge Date Admission Date: July 22, 2020 Subjective Patient seen and examined the bedside. Resting comfortably. Cough/wheezing unchanged. Denies chest pain, palpitations, or unusual shortness of breath. No orthopnea, PND, or lower extremity edema. Telemetry demonstrates rate con trolled atrial fibrillation. Review of Systems Review of Systems: All systems reviewed & are unremarkable except as noted in HPI & below Physical Exam Constitutional: well developed and well nourished; no acute distress and not ill appearing Respiratory: Auscultation: + rhonchi (Scattered bilateral, mild improvement with cough) and + wheezes (B/L expiratory); no crackles and no rales Cardiovascular: Rate/Rhythm: + irregularly irregular Heart Sounds: normal S1 and normal S2; no murmur and no cardiac rub Vessels: radial pulses present; no JVD and no carotid bruit Extremities: no edema Gastrointestinal (Abdomen): Percussion/Palpation: + abdomen tender (Mild diffuse) and + hernia (Left inguinal); no guarding and abdomen not rigid Skin: no rashes, warm and dry Neurologic: CN's II-XI intact bilaterally and moves all extremities Motor/Sensory: no tremor Psychiatric: A+Ox3, euthymic affect Results & Data ([facility]) Vital Signs (Past 12 Hours) Vital Signs Temp Pulse Pulse Resp BP Pulse Ox 07/26/20 11:24 36.4 C L 72 18 118/75 96 07/26/20 09:54 64 07/26/20 06:57 72 18 95 07/26/20 03:40 36.4 C L 76 20 112/67 92 07/26/20 00:37 108 H 07/25/20 23:33 36.9 C 62 18 101/70 93
[2020-07-26] MEDS ORDERED: BUPIVACAINE 0.5 % 5 MG/1 ML MPF 30ML VIAL ONE (15:14)
[2020-07-26] MEDS ORDERED: LIDOCAINE HCL 1% 20 ML VIAL ONE (15:14)
[2020-07-26] MEDS ORDERED: BACITRACIN OINT 15 GM TUBE ONE (15:14)
--- NOTE | 2020-07-26 15:45 | Anesthesiology Consultation ---
Date of Service July 26, 2020 Assessment & Plan (1) Encounter for pre-operative examination: Chart Review Chart Review: Acceptable Risk for Surgery and Patient NOT seen in Pre Admission Testing Proposed Anesthesia Risk / Benefits Reviewed With: PT / POA / Parent / Guardian, Accepts Plan and Informed Consent Obtained History Surgery Operation Date: 07/26/20 14:30 Proposed Procedures p Left Open Inguinal Hernia with Mesh Under Sedation and Local - Olegario Bush MD Height/Weight Height: 6 ft 5 in Weight: 91.3 kg Allergies Allergy/AdvReac Type Severity Reaction Status Date / Time aspirin Allergy Severe TIGHTNESS Verified 07/22/20 19:42 IN CHEST NSAIDS (Non-Steroidal Allergy Severe TIGHTNESS Verified 07/22/20 19:42 Anti-Inflamma IN THE CHEST rofecoxib Allergy Severe TIGHTNESS Verified 07/22/20 19:42 IN CHEST ibuprofen Allergy Intermediate Asthma Verified 07/22/20 19:42 Symptoms Medications Home Medications Medication Instructions Recorded Confirmed Last Taken Calcium 600 + D(3) 1 tab PO QAM 06/02/18 07/22/20 07/22/20 clopidogrel [Plavix] 75 mg PO QAM 06/02/18 07/22/20 07/22/20 finasteride 5 mg PO HS 06/02/18 07/22/20 07/22/20 loratadine 10 mg PO QAM 06/02/18 07/22/20 07/22/20 montelukast [Singulair] 10 mg PO HS 06/02/18 07/22/20 07/22/20 multivitamin [Multiple Vitamins] 1 tab PO QAM 06/02/18 07/22/20 07/22/20 alfuzosin 10 mg tablet,extended 10 mg PO HS 06/02/19 07/22/20 07/21/20 release 24 hr budesonide-formoterol HFA 160 2 puffs INH BID #10.2 gm 07/01/19 07/22/20 07/22/20 mcg-4.5 mcg/actuation aerosol inhaler levalbuterol tartrate 45 2 puff INHALATION Q8H PRN #15 gm 09/17/19 07/22/20 Unknown mcg/actuation aerosol inhaler diclofenac sodium 2 g TOPICAL QID PRN 02/28/20 07/22/20 Unknown docusate sodium 100 mg PO BID 02/28/20 07/22/20 07/22/20 levothyroxine 50 mcg PO QAM 02/28/20 07/22/20 07/22/20 verapamil 240 mg PO HS 02/28/20 07/22/20 07/21/20 ipratropium bromide 0.02 % See Rx Instructions .ROUTE 03/22/20 07/22/20 07/22/20 solution for inhalation .COMPLEX #300 milliliter pantoprazole 40 mg tablet,delayed 40 mg PO BID #60 tab 05/29/20 07/22/20 07/22/20 release azithromycin [Zithromax Z-Kwan] See Rx Instructions .ROUTE .COMPLEX 07/22/20 07/22/20 Unknown glucosamine-chondroitin [Osteo 2 tab PO QAM 07/22/20 07/22/20 07/22/20 Bi-Flex] levalbuterol HCl 1.25 mg INH TID PRN 07/22/20 07/22/20 07/22/20 plecanatide [Trulance] 3 mg PO DAILY 07/22/20 07/22/20 07/22/20 prednisone See Rx Instructions .ROUTE .COMPLEX 07/22/20 07/22/20 Unknown sodium chloride [Pulmosal] 4 ml INHALATION TID 07/22/20 07/22/20 07/22/20 Active Medications Generic Name Dose Route Start Last Admin Trade Name Freq PRN Reason Stop Dose Admin Alfuzosin HCl 10 mg 07/22/20 23:00 07/25/20 20:30 Alfuzosin Hcl 10 Mg Tab PO 08/21/20 22:59 10 mg HS DONOVAN Administration Bisacodyl 10 mg 07/24/20 09:45 07/26/20 08:13 Bisacodyl 10 Mg Supp CO 08/23/20 09:44 Not Given Q12H DONOVAN Docusate Sodium 100 mg 07/22/20 23:00 07/26/20 08:13 Docusate Sodium 100 Mg Cap PO 08/21/20 22:59 Not Given BID DONOVAN Finasteride 5 mg 07/22/20 23:00 07/25/20 20:30 Finasteride 5 Mg Tab PO 08/21/20 22:59 5 mg HS DONOVAN Administration Fluticasone/Vilanterol 1 puffs 07/22/20 23:00 07/25/20 20:29 Fluticasone/Vilanterol 200/25mcg 14 Puffs/Inhaler INH 08/21/20 22:59 1 puffs HS DONOVAN Administration Ampicillin Sodium/Sulbactam 108 mls @ 200 mls/hr 07/22/20 22:00 07/26/20 11:01 Sodium 3,000 mg/ Sodium IV 07/29/20 21:18 Infused Chloride Q6H DONOVAN Infusion Protocol Pantoprazole Sodium 40 mg/ 10 mls @ 5 mls/min 07/22/20 23:00 07/26/20 08:13 Syringe IV 08/21/20 22:59 5 mls/min BID DONOVAN Administration Potassium Chloride/Dextrose/Sod Cl 20 meq in 1,000 mls @ 60 mls/hr 07/25/20 13:00 07/26/20 15:30 D5w And 1/2nss + 20meq Kcl IV 08/24/20 12:59 0 mls/hr .[id number] DONOVAN Infusion Ipratropium [place] 0.5 mg 07/23/20 13:00 07/26/20 13:19 Ipratropium [place] Neb Soln 0.02% 2.5 Ml Vial NEB 08/22/20 12:59 0.5 mg TIDR DONOVAN Administration Levalbuterol HCl 1.25 mg 07/23/20 13:00 07/26/20 13:19 Levalbuterol 1.25mg/0.5ml Neb INH 08/22/20 12:59 1.25 mg TIDR DONOVAN Administration Levothyroxine Sodium 50 mcg 07/23/20 06:30 07/26/20 06:10 Levothyroxine Sodium 50 Mcg Tablet PO 08/22/20 06:29 Not Given DAILYBB DONOVAN Loratadine 10 mg 07/23/20 09:00 07/26/20 08:13 Loratadine 10 Mg Tab PO 08/22/20 08:59 10 mg QAM DONOVAN Administration Miscellaneous 1 ea 07/23/20 00:00 07/26/20 07:08 Trulance- Order Awaiting Action N/A 08/22/20 00:00 Not Given QS DONOVAN Montelukast Sodium 10 mg 07/22/20 23:00 07/25/20 20:29 Montelukast Sodium 10 Mg Tablet PO 08/21/20 22:59 10 mg HS DONOVAN Administration Morphine Sulfate 3 mg 07/22/20 21:19 07/24/20 06:52 Morphine Sulfate 4 Mg/Ml 1 Ml Carp\Vial IV 08/05/20 21:18 3 mg Q3H PRN Administration Pain Multivitamins 1 tab 07/23/20 09:00 07/26/20 08:13 Multivitamin Tab PO 08/22/20 08:59 1 tab QAM DONOVAN Administration Ondansetron HCl 4 mg 07/22/20 19:46 07/23/20 00:45 Ondansetron Inj 2 Mg/Ml 2 Ml Vial IV 08/21/20 19:45 4 mg Q6H PRN Administration Nausea Polyethylene Glycol 17 gm 07/24/20 09:45 07/26/20 08:14 Polyethylene (Miralax) 17 Gm Pack PO 08/23/20 09:44 Not Given Q8H DONOVAN Sodium Chloride 4 ml 07/22/20 23:00 07/26/20 13:19 Sodium Chlor 7% 4 Ml Neb INH 08/21/20 22:59 4 ml TIDR DONOVAN Administration Verapamil HCl 240 mg 07/22/20 21:00 07/25/20 20:28 Verapamil Hcl 240 Mg Tabcr PO 08/21/20 20:59 240 mg HS DONOVAN Administration Past Medical History Medical History Asthma Atrial fibrillation BPH (benign prostatic hyperplasia) Chronic kidney disease GERD (gastroesophageal reflux disease) On home oxygen therapy MARU on CPAP Pacemaker HX OF SYMPTOMATIC BRADYCARDIA WITH PAUSES Transient ischemic attack (TIA) 20+ YEARS AGO, NO RESIDUAL. Past Family History Family History Other Asthma Heart disease Past Surgical History Surgical History History of cardiac radiofrequency ablation History of cataract extraction with lens replacement LEFT History of cholecystectomy History of pacemaker Status post cataract extraction Social History Smoking Status: Never smoker Do You Dip or Chew Tobacco: No Hx Alcohol Use: No Hx Substance Use: No substance use type: does not use Physical Exam Vital Signs Last Vital Signs Temp 36.4 C L 07/26/20 15:20 Pulse 77 07/26/20 15:20 Resp 18 07/26/20 15:20 BP 125/73 11/18/20 15:20 Pulse Ox 95 07/26/20 15:20 Testing Laboratory Results 07/26/20 05:36 07/26/20 05:36 PT 11.9 Seconds (9.0-12.0) 07/26/20 05:36 INR 1.1 (0.9-1.1) 07/26/20 05:36 APTT 30.1 Seconds (21.0-31.0) 07/22/20 17:07 Urine Color Yellow 07/22/20 19:00 Urine Appearance Cloudy (Clear) A 07/22/20 19:00 Urine pH 8.5 (4.5-7.5) H 07/22/20 19:00 Ur Specific [place] 1.017 (1.000-1.030) 07/22/20 19:00 Urine Protein Negative (Negative) 07/22/20 19:00 Urine Glucose (UA) Negative (Negative) 07/22/20 19:00 Urine Ketones Negative (Negative) 07/22/20 19:00 Urine Nitrite Negative (Negative) 07/22/20 19:00 Ur Leukocyte Esterase Negative (Negative) 07/22/20 19:00 Urine WBC (Auto) 1-5 /hpf (0-5) 07/22/20 19:00 Urine RBC (Auto) 0-4 /hpf (0-4) 07/22/20 19:00 U Hyaline Cast (Auto) 0 /lpf (0-5) 07/22/20 19:00 U Epithel Cells (Auto) 10-20 /lpf (0-5) H 07/22/20 19:00 Urine Bacteria (Auto) 1+ (Negative) H 07/22/20 19:00 07/22/20 19:00 Urine Culture - Final Urine,Clean Catch Three types of organisms present, all low counts probable skin marisabel. No further identifications or sensitivities to follow.
[2020-07-26] MEDS ORDERED: fentaNYL citrate 100 MCG/2 ML VIAL IV PRN (16:29)
[2020-07-26] MEDS ORDERED: ONDANSETRON INJ 2 MG/ML 2 ML VIAL IV PRN (16:29)
[2020-07-26] MEDS ORDERED: ePHEDrine sulfate 50 MG/ML AMP IV PRN (16:29)
[2020-07-26] MEDS ORDERED: ATROPINE SULFATE 0.1 MG/ML 10ML SYR IV PRN (16:29)
--- NOTE | 2020-07-26 16:34 | Pulmonology Progress Note ---
Date of Service July 26, 2020 Assessment & Plan (1) COPD (chronic obstructive pulmonary disease) case management patient: EGD 07/25/2020: 7.41/36/64 on room air Chest x-ray 07/25/2020 personally reviewed: Portable film good inspiratory effort, bilateral costophrenic and cardiophrenic angles are clean, there is mild interstitial marking thickening appreciated bilaterally, mild increase in the right hilum, dual-chamber pacemaker in place, no clear infiltrate appreciated. CT chest 03/29/2018 personally reviewed: Patient has bronchiectasis appreciated in the lower lobe more on the left lower lobe diffuse mosaicism is appreciated especially in the upper lobes, air trapping bilateral apical scarring, minimal mediastinal adenopathy especially station 4L --Bilateral lower lobe bronchiectasis Etiology is unclear Patient is on chest vest therapy at home along with flutter valve Continue with flutter valve and chest PT while the patient is in the hospital along with Mucinex and hypertonic saline nebulized Patient has been brought multiple times by Dr. Gonzalez as an outpatient. He had grown RONDA 06/05/2018 once but was never treated for it. Also has Pseudomonas in the sputum in the past pansensitive 06/05/2018. Has been on azithromycin as well as levofloxacin in the past. --MARU Continue with CPAP while in the hospital Patient has his own CPAP. --Plan There is no absolute contraindication from pulmonary perspective for the patient to have surgery. Given the history of MARU would recommend BiPAP/CPAP post extubation. Recommend 6 mL/kg tidal volume. No further recommendations from pulmonary perspective. Will sign off. Please recall if needed. Please note the above document was generated using voice recognition software. It may contain grammatical, syntax or spelling errors.Any formal questions or concerns about the content, text or information contained within the body of this dictation should be directly addressed to the provider for clarification. (2) MARU on CPAP: Admission and Anticipated Discharge Date Admission Date: July 22, 2020 Subjective Patient seen and examined at bedside. No acute distress, no adverse events overnight. Patient has been coughing bringing up phlegm especially after hypertonic saline and flutter valve were resumed. No hemoptysis. Denies any chest pain, no shortness of breath. No nausea or vomiting. Review of Systems Review of Systems: All systems reviewed & are unremarkable except as noted in Subjective Physical Exam Physical Exam: Constitutional: No acute distress HEENT: EOMI, PERRLA Respiratory system: Decreased bilaterally, no wheeze, minimal rhonchi right lower lobe, mild crackles bilateral lower lobes CVS: S1-S2 positive, no murmurs or gallops Abdomen: Soft, nontender, nondistended, positive bowel sounds x4 Extremities: +2 pulses bilaterally radialis/ dorsalis pedis, no cyanosis, no edema Neuro: Awake alert oriented x3 Psych: Normal mood and affect G/U: No [place] Skin: no rashes, warm and dry Lymphatic: + inguinal lymphadenopathy Results & Data Results & Data ([facility]) Vital Signs (Past 12 Hours) Vital Signs Temp Pulse Pulse Pulse Resp BP Pulse Ox 07/26/20 15:50 36.4 C L 77 16 120/85 95 07/26/20 15:20 36.4 C L 77 18 125/73 95 07/26/20 13:19 67 16 95 07/26/20 11:24 36.4 C L 72 18 118/75 96 07/26/20 09:54 64 07/26/20 06:57 72 18 95 07/26/20 05:36 07/26/20 05:36 PG Care Time/CCT Total # of Minutes Spent Total Time Spent with Patient: Total time spent is greater than 50% in coordination of care (as documented) at patient's floor/unit and/or counseling patient: Coding Level of Care Code 37485 Subseq Hosp Care Lvl 3 Diagnoses COPD (chronic obstructive pulmonary disease) case management patient J44.9 MARU on CPAP G47.33; Z99.89
--- NOTE | 2020-07-26 16:40 | History & Physical Bridge Note ---
Date of Service July 26, 2020 History & Physical Bridge Note I have examined the patient, reviewed the History & Physical and in the interval since the performance of the History & Physical I have noted the following changes of clinical significance: no changes noted
[2020-07-26] MEDS ORDERED: ceFAZolin 2000MG 2,000 MG/15 ML SYR IV ONE (16:41)
[2020-07-26] MEDS ORDERED: fentaNYL citrate 100 MCG/2 ML VIAL ONE ×2 (16:46→17:25)
[2020-07-26] MEDS ORDERED: LIDOCAINE HCL 2% 2 ML VIAL/AMP(20MG/ML) INFIL ONE (17:06)
[2020-07-26] MEDS ORDERED: PROPOFOL IV EMULSION 10 MG/ML 20 ML VIAL IV ONE ×2 (17:06→17:08)
[2020-07-26] MEDS ORDERED: ONDANSETRON INJ 2 MG/ML 2 ML VIAL ONE (17:30)
[2020-07-26] MEDS ORDERED: PHENYLEPHRINE 100MCG/ML 5ML SYR ONE (17:30)
--- NOTE | 2020-07-26 17:56 | Post Operative Brief Note ---
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
--- NOTE | 2020-07-26 18:22 | Anesthesiology Progress Note ---
Date of Service July 26, 2020 Anesthesia Post Procedure Vital Signs Vital Signs: Temp Pulse Pulse Pulse Resp BP Pulse Ox 07/26/20 18:10 72 15 105/72 98 07/26/20 18:01 36.5 C 77 14 113/75 98 07/26/20 15:50 36.4 C L 77 16 120/85 95 07/26/20 15:20 36.4 C L 77 18 125/73 95 07/26/20 13:19 67 16 95 07/26/20 11:24 36.4 C L 72 18 118/75 96 07/26/20 09:54 64 07/26/20 06:57 72 18 95 07/26/20 03:40 36.4 C L 76 20 112/67 92 07/26/20 00:37 108 H 07/25/20 23:33 36.9 C 62 18 101/70 93 07/25/20 20:27 60 125/72 07/25/20 19:49 36.5 C 86 20 126/83 92 07/25/20 19:42 80 18 92 Pain Intensity Left Lower Other: Pain Intensity: 1 Rectal: Pain Intensity: 5 Transfer of Care Handoff Completed per policy Notes Mental Status: alert / awake / arousable and participated in evaluation Nausea / Vomiting: adequately controlled Pain: adequately controlled Airway Patency, RR, SpO2: stable & adequate BP & HR: stable & adequate Hydration State: stable & adequate Anesthetic Complications: no major complications apparent and Pt Satisfied with anesthetic care
[2020-07-26] MEDS ORDERED: AZITHROMYCIN 250 MG TAB PO SCH (18:33)
[2020-07-26] MEDS ORDERED: predniSONE 20 MG TAB SCH (18:33)
[2020-07-26] MEDS ORDERED: DICLOFENAC SOD 1% GEL 100 GM TUBE EXT PRN (18:33)
[2020-07-26] MEDS: FLUTICASONE/VILANTEROL 200/25MCG 14 PUFFS/INHALER INH SCH (20:54)
[2020-07-26] MEDS: CALCIUM 600MG + VIT D 400 IU TAB PO SCH (20:54)
[2020-07-26] MEDS: VERAPAMIL HCL 240 MG TABCR PO SCH (20:57)
[2020-07-26] MEDS: PANTOprazole 40 MG TAB PO SCH (20:58)
[2020-07-26] MEDS: FINASTERIDE 5 MG TAB PO SCH (20:58)
[2020-07-26] MEDS: MONTELUKAST SODIUM 10 MG TABLET PO SCH (20:59)
[2020-07-26] MEDS: ALFUZOSIN HCL 10 MG TAB PO SCH (21:00)
[2020-07-26] MEDS: guaiFENesin 600 MG TABCR PO SCH (21:01)
[2020-07-27] MEDS: POLYETHYLENE (MIRALAX) 17 GM PACK PO SCH ×4 (01:51→23:17)
--- NOTE | 2020-07-27 02:55 | Operative Report (OR) ---
DATE OF OPERATION: 07/26/2020 PREOPERATIVE DIAGNOSIS: Left inguinal hernia. POSTOPERATIVE DIAGNOSIS: Left inguinal hernia. OPERATION: Open repair of left inguinal hernia with mesh. SURGEON: Olegario Bush MD ANESTHESIA: Conscious sedation plus local. ESTIMATED BLOOD LOSS: About 10 mL. FINDINGS: Left indirect large inguinal hernia. COMPLICATIONS: None. INDICATIONS FOR THE PROCEDURE: This is an 89-year-old gentleman who was admitted to hospital for a large left inguinal hernia and the patient was required to do open repair of left inguinal hernia with mesh. I did talk to the patient about the benefits, the risks, and alternate procedures. I indicated the risks may include, but not limited such as bleeding, infection, hernia recurrence, chronic pain, seroma, complication related to mesh. The patient understands. He signed informed consent and I answered all questions. DETAILS OF PROCEDURE: We brought in the patient to the OR and put the patient in the supine position. The patient received SCDs on bilateral legs to prevent DVT. Also, patient received IV antibiotics for prophylactic antibiotic, Unasyn. The patient received conscious sedation by anesthesiology. The abdomen was prepped and draped in routine sterile fashion. After timeout, I injected local anesthesia by using 1% lidocaine mixed with 0.5% Marcaine around the left inguinal area. I then made about a 4 cm incision on the left inguinal area, dissected the subcutaneous layer, reached the external oblique, opened the external oblique and mobilized the cord structure. Then we mobilized the hernia sac because the hernia sac was so large and chronic and difficult to dissect completely. So we only removed the partial hernia sac. Then we closed the hernia, the neck by using 2-0 Prolene. Then we chose to unplug the indirect hernia. Then we used a 3 x 5 cm mesh to reinforce the posterior wall, used 2-0 Prolene to suture the mesh to left inguinal ligament, continuous running, another 2-0 Prolene to suture mesh to conjoint tendon, continuous running, two sutures meeting together, tied. The mesh seated nicely, no tension. Hemostasis was obtained. Then I closed the external oblique by using 2-0 Vicryl continuous running, closed subcutaneous layer by using 2-0 Vicryl continuous running, closed skin by using 4-0 Vicryl continuous running. Then we put the dressing on. The patient tolerated the procedure well. All the instrument, needle, and sponge counts were correct x2 at the end of the case. The patient transferred to recovery room in stable condition. The specimen sent to pathology. I attest to the content of the Intraoperative Record and any orders documented therein. Any exception s are noted below.
[2020-07-27] MEDS: AMPICILLIN/SULBACTAM SOD 3,000 MG in 0.9 % SODIUM CHLORIDE 100 ML IV SCH ×4 (04:32→21:25)
[2020-07-27] MEDS: LEVOTHYROXINE SODIUM 50 MCG TABLET PO SCH (06:21)
[2020-07-27 06:49] LABS: Hematocrit (blood only) 38.7 % (42-52); Hemoglobin 12.9 g/dL (14.0-18.0); Mean Corpuscular Hemoglobin 30.8 pg (25-34); Mean Corpuscular Hgb Conc 33.3 g/dL (32-36); Mean Corpuscular Volume 92.4 fL (80-100); Mean Platelet Volume 9.7 fL (7.4-10.4); Platelet Count 192 K/uL (130-400); RDW Coefficient of Variation 13.5 % (11.5-14.5); RDW Standard Deviation 45.7 fL (36.4-46.3); Red Blood Count 4.19 M/uL (4.7-6.1); White Blood Count 6.23 K/uL (4.8-10.8)
[2020-07-27] MEDS: SODIUM CHLOR 7% 4 ML NEB INH SCH ×3 (07:14→20:14)
[2020-07-27] MEDS: IPRATROPIUM BROMIDE NEB SOLN 0.02% 2.5 ML VIAL NEB SCH ×3 (07:14→20:14)
[2020-07-27] MEDS: LEVALBUTEROL 1.25MG/0.5ML NEB INH SCH ×3 (07:14→20:14)
[2020-07-27 07:15] LABS: BUN Creatinine Ratio 6.6 (10-20); Calcium 8.3 mg/dl (8.5-10.1); Creatinine Clr Calc Pharmacy 56.4 ml/min; Est GFR (African American) 67.1; Est GFR (Non-African American) 57.9; Phosphorus 3.7 mg/dl (2.5-4.9); Potassium 3.8 mmol/L (3.5-5.1)
--- NOTE | 2020-07-27 08:04 | Anesthesiology Progress Note ---
Date of Service July 27, 2020 Anesthesia Post Procedure Vital Signs Vital Signs: Temp Pulse Pulse Pulse Resp BP Pulse Ox 07/27/20 07:21 37.0 C 96 H 20 107/67 90 07/27/20 07:15 88 16 92 07/27/20 03:17 106 H 07/27/20 03:00 36.5 C 106 H 18 108/68 94 07/26/20 23:00 36.6 C 111 H 20 121/72 95 07/26/20 20:56 101 H 101/62 94 07/26/20 19:27 101 H 16 88 L 07/26/20 19:15 36.4 C L 77 20 118/80 95 07/26/20 18:34 36.4 C L 79 18 120/80 92 07/26/20 18:20 36.7 C 74 18 113/77 94 07/26/20 18:10 72 15 105/72 98 07/26/20 18:01 36.5 C 77 14 113/75 98 07/26/20 15:50 36.4 C L 77 16 120/85 95 07/26/20 15:20 36.4 C L 77 18 125/73 95 07/26/20 15:00 83 07/26/20 13:19 67 16 95 07/26/20 11:24 36.4 C L 72 18 118/75 96 07/26/20 09:54 64 Pain Intensity Left Lower Other: Pain Intensity: 1 Rectal: Pain Intensity: 5 Notes Mental Status: alert / awake / arousable and participated in evaluation Patient Amnestic to Procedure: Yes Nausea / Vomiting: adequately controlled Pain: adequately controlled Airway Patency, RR, SpO2: stable & adequate BP & HR: stable & adequate Hydration State: stable & adequate Anesthetic Complications: no major complications apparent and Pt Satisfied with anesthetic care
[2020-07-27] MEDS: GLUCOSAMINE SULFATE 500 MG CAP PO SCH (08:05)
[2020-07-27] MEDS: guaiFENesin 600 MG TABCR PO SCH ×2 (08:05→21:10)
[2020-07-27] MEDS: CALCIUM 600MG + VIT D 400 IU TAB PO SCH (08:05)
[2020-07-27] MEDS: MULTIVITAMIN TAB PO SCH (08:05)
[2020-07-27] MEDS: PANTOprazole 40 MG TAB PO SCH ×2 (08:05→21:13)
[2020-07-27] MEDS: DOCUSATE SODIUM 100 MG CAP PO SCH ×2 (08:05→21:12)
[2020-07-27] MEDS: LORATADINE 10 MG TAB PO SCH (08:05)
--- NOTE | 2020-07-27 08:47 | Hospitalist Progress Note ---
Date of Service July 27, 2020 Assessment & Plan (1) History of MAC infection: (2) MARU on CPAP: (3) Chronic atrial fibrillation: (4) Incarcerated inguinal hernia: (5) SBO (small bowel obstruction): (6) COPD (chronic obstructive pulmonary disease) case management patient: (7) GERD (gastroesophageal reflux disease): (8) PMR (polymyalgia rheumatica): (9) Pacemaker: (10) BPH (benign prostatic hypertrophy): (11) CKD (chronic kidney disease) stage 3, GFR 30-59 ml/min: ASSESSMENT AND PLAN: This an 89-year-old male who presents with abdominal pain and found to have small-bowel obstruction. 1. Abdominal pain, small-bowel obstruction, question of incarcerated inguinal hernia but later it was reducible, surgery consulted, now s/p Left inguinal hernia repair 07/26/2020. Pt tolerated procedure well. Pt had a BM on 07/25 after using laxatives. (Mag Citrate) . Currently pt is passing gas, has appetite, no BM today 07/27. IV fluids, IV antiemetics, IV morphine p.r.n. Plavix restarted today 07/27. Cardiology and Pulmonary medicine consulted for pre-op eval. Per pulmonary: There is no absolute contraindication from pulmonary perspective for the patient to have surgery. Given the history of MARU would recommend BiPAP/CPAP post extubation. Continue with flutter valve along with hypertonic saline nebulized. Per cardiology: restart Plavix, cont. verapamil. 2. Possible aspiration pneumonia, possible urinary tract infection. Continue with Unasyn. Follow the cultures. Urine cultx - mixed marisabel, likely skin organism 3. 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 The patient is on verapamil. Not on anticoagulation secondary to recurrent spontaneous hematomas. on Plavix. Will continue to monitor. 4. History of TIA. On Plavix. 5. BPH. On finasteride. 6. Asthma. Continue home inhalers and nebs. 7. Sleep apnea, on CPAP. 8. Chronic kidney disease stage III, creatinine 1.03. We will follow the labs. Mild hypokalemia replete and monitor 9. Gastroesophageal reflux disease: On Protonix. 10. History of polymyalgia rheumatica. 11. Hypothyroidism. Continue Synthroid. 12. Constipation. Stool softeners. Deep venous thrombosis prophylaxis, sequential compression devices for now. Disposition: PT and OT prior to discharge. director of food and beverage services to help with discharge planning. Admission and Anticipated Discharge Date Admission Date: July 22, 2020 Subjective Patient underwent left inguinal hernia repair yesterday. Currently lying in bed in no acute distress. Has some pain in left groin. No fevers, chills, chest pain, shortness of breath. Feels that his breathing is at baseline. Review of Systems Review of Systems: All systems reviewed & are unremarkable except as noted in HPI & below Constitutional: no fever and no chills Respiratory: no cough and no dyspnea Cardiovascular: no chest pain and no palpitations Gastrointestinal: no abdominal pain, no nausea and no vomiting Physical Exam Physical Exam: Gen- elderly male, laying in bed, in NAD, hard of hearing, AAO x 3, NAD, Afebrile Head- NCAT, EOMI, Anicteric Sclera Neck- Supple, No JVD Lungs- good resp. effort, + mild bibasilar Rhonchi, no wheezing Chest- irregularly irregular, nl S1, nl S2, no murmur Abdomen- Soft, Bowel Sounds Present, Non Tender to palpation, Non Distended, s/p L inguinal hernia repair, dressings applied c/d/i, No Rigidity, No Guarding Musculoskeletal- Full Range of Motion Bilaterally Extremities- No Cyanosis, No Clubbing, No Edema Neuro- alert and oriented, answering questions appropriately, hard of hearing, speech fluent, no facial asymmetry, moves extremities spontaneously Psych-Normal Mood Results & Data Results & Data ([facility]) Vital Signs (Past 12 Hours) Vital Signs Temp Pulse Pulse Resp BP Pulse Ox 07/27/20 07:21 37.0 C 96 H 20 107/67 90 07/27/20 07:15 88 16 92 07/27/20 03:17 106 H 07/27/20 03:00 36.5 C 106 H 18 108/68 94 07/26/20 23:00 36.6 C 111 H 20 121/72 95 07/26/20 20:56 101 H 101/62 94 Laboratory Results 07/27/20 07/27/20 Range/Units 06:07 06:07 WBC 6.23 (4.8-10.8) K/uL RBC 4.19 L (4.7-6.1) M/uL Hgb 12.9 L (14.0-18.0) g/dL Hct 38.7 L (42-52) % MCV 92.4 (80-100) fL MCH 30.8 (25-34) pg MCHC 33.3 (32-36) g/dL RDW Std Deviation 45.7 (36.4-46.3) fL RDW Coeff of Lawson 13.5 (11.5-14.5) % Plt Count 192 (130-400) K/uL MPV 9.7 (7.4-10.4) fL Sodium 137 (136-145) mmol/L Potassium 3.8 (3.5-5.1) mmol/L Chloride 106 (98-107) mmol/L Carbon Dioxide 26 (21-32) mmol/L Anion Gap 5.0 (3-11) BUN 7 (7-18) mg/dl Creatinine 1.12 (0.6-1.4) mg/dl Est Cr Clr Drug Dosing 56.4 ml/min Est GFR ( Amer) 67.1 Est GFR (Non-Af Amer) 57.9 BUN/Creatinine Ratio 6.6 L (10-20) Glucose 84 (70-99) mg/dl Calcium 8.3 L (8.5-10.1) mg/dl Phosphorus 3.7 (2.5-4.9) mg/dl Magnesium 2.0 (1.8-2.4) mg/dl Medications Administered Current Inpatient Medications Alfuzosin HCl (Alfuzosin Hcl 10 Mg Tab) 10 mg PO HS DONOVAN Stop: 08/21/20 22:59 Last Admin: 07/26/20 21:00 Dose: 10 mg Documented by: Azithromycin (Azithromycin 250 Mg Tab) 0 mg PO .COMPLEX DONOV[facility] Stop: 07/28/20 18:32 Bisacodyl (Bisacodyl 10 Mg Supp) 10 mg SC Q12H [facility] Stop: 08/23/20 09:44 Last Admin: 07/26/20 21:02 Dose: Not Given Documented by: Diclofenac Sodium (Diclofenac Sod 1% Gel 100 Gm Tube) 2 gm EXT QID PRN PRN Reason: Pain Stop: 08/25/20 18:32 Docusate Sodium (Docusate Sodium 100 Mg Cap) 100 mg PO BID [facility] Stop: 08/21/20 22:59 Last Admin: 07/27/20 08:05 Dose: 100 mg Documented by: Finasteride (Finasteride 5 Mg Tab) 5 mg PO HS DON[facility]AN Stop: 08/21/20 22:59 Last Admin: 07/26/20 20:58 Dose: 5 mg Documented by: Fluticasone/Vilanterol (Fluticasone/Vilanterol 200/25mcg 14 Puffs/Inhaler) 1 puffs INH HS DONOVAN Stop: 08/21/20 22:59 Last Admin: 07/26/20 20:54 Dose: 1 puffs Documented by: Glucosamine Sulfate (Glucosamine Sulfate 500 Mg Cap) 1,000 mg PO QAM [facility] Stop: 08/26/20 08:59 Last Admin: 07/27/20 08:05 Dose: 1,000 mg Documented by: Guaifenesin (Guaifenesin 600 Mg Tabcr) 600 mg PO Q12 [facility] Stop: 08/25/20 20:59 Last Admin: 07/27/20 08:05 Dose: 600 mg Documented by: Ampicillin Sodium/Sulbactam Sodium 3,000 mg/ Sodium Chloride 108 mls @ 200 mls/hr IV Q6H DONOVAN; Protocol Stop: 07/29/20 21:18 Last Infusion: 07/27/20 05:05 Dose: Infused Documented by: Ipratropium Brewster (Ipratropium Brewster Neb Soln 0.02% 2.5 Ml Vial) 0.5 mg NEB TIDR [facility] Stop: 08/22/20 12:59 Last Admin: 07/27/20 07:14 Dose: 0.5 mg Documented by: Levalbuterol HCl (Levalbuterol Tartrate 15 Gm Hfa.Aer.Ad) 2 puffs INH Q8H PRN PRN Reason: Wheezing Stop: 08/21/20 21:18 Levalbuterol HCl (Levalbuterol 1.25mg/0.5ml Neb) 1.25 mg INH TIDR DONOVNA Stop: 08/22/20 12:59 Last Admin: 07/27/20 07:14 Dose: 1.25 mg Documented by: Levothyroxine Sodium (Levothyroxine Sodium 50 Mcg Tablet) 50 mcg PO DAILYBB [facility] Stop: 08/22/20 06:29 Last Admin: 07/27/20 06:21 Dose: 50 mcg Documented by: Loratadine (Loratadine 10 Mg Tab) 10 mg PO QAM [facility] Stop: 08/22/20 08:59 Last Admin: 07/27/20 08:05 Dose: 10 mg Documented by: Metoprolol Tartrate (Metoprolol Tartrate 1 Mg/Ml Vial) 2.5 mg IV Q6 PRN PRN Reason: Tachycardia Stop: 08/21/20 21:18 Miscellaneous (Trulance- Order Awaiting Action) 1 ea N/A QS [facility] Stop: 08/22/20 00:00 Last Admin: 07/27/20 07:11 Dose: Not Given Documented by: Miscellaneous Information (Ampicillin/Sulbactam Consult Active) 1 ea N/A UD PRN PRN Reason: Consult Stop: 08/21/20 21:20 Montelukast Sodium (Montelukast Sodium 10 Mg Tablet) 10 mg PO [facility] Stop: 08/21/20 22:59 Last Admin: 07/26/20 20:59 Dose: 10 mg Documented by: Morphine Sulfate (Morphine Sulfate 4 Mg/Ml 1 Ml Carp\Vial) 3 mg IV Q3H PRN PRN Reason: Pain Stop: 08/05/20 21:18 Last Admin: 07/24/20 06:52 Dose: 3 mg Documented by: Multivitamins (Multivitamin Tab) 1 tab PO [facility] Stop: 08/22/20 08:59 Last Admin: 07/27/20 08:05 Dose: 1 tab Documented by: Multivitamins/Minerals (Calcium 600mg + Vit D 400 Iu Tab) 1 tab PO [facility] Stop: 08/25/20 18:32 Last Admin: 07/27/20 08:05 Dose: 1 tab Documented by: Ondansetron HCl (Ondansetron Inj 2 Mg/Ml 2 Ml Vial) 4 mg IV Q6H PRN PRN Reason: Nausea Stop: 08/21/20 19:45 Last Admin: 07/23/20 00:45 Dose: 4 mg Documented by: Pantoprazole Sodium (Pantoprazole 40 Mg Tab) 40 mg PO BID [facility] Stop: 08/25/20 20:59 Last Admin: 07/27/20 08:05 Dose: 40 mg Documented by: Polyethylene Glycol (Polyethylene (Miralax) 17 Gm Pack) 17 gm PO Q8H [facility] Stop: 08/23/20 09:44 Last Admin: 07/27/20 01:51 Dose: Not Given Documented by: Prednisone (Prednisone 20 Mg Tab) 0 mg NA .COMPLEX [facility] Stop: 08/25/20 18:32 Sodium Chloride (Sodium Chlor 7% 4 Ml Neb) 4 ml INH TIDR [facility] Stop: 08/21/20 22:59 Last Admin: 07/27/20 07:14 Dose: 4 ml Documented by: Verapamil HCl (Verapamil Hcl 240 Mg Tabcr) 240 mg PO HS [facility] Stop: 08/21/20 20:59 Last Admin: 07/26/20 20:57 Dose: 240 mg Documented by:
[2020-07-27] MEDS: bisacodyL 10 MG SUPP PR SCH ×2 (09:14→21:13)
--- NOTE | 2020-07-27 11:12 | Surgery Progress Note ---
Date of Service F/U S/P open repair left inguinal hernia with mesh, POD 1 pt is doing fine, no abdominal pain, no nausea,no vomiting, no fever, July 27, 2020 Assessment & Plan (1) Left inguinal hernia: pt is a 89 year-old male who was admitted to hospital for left inguinal hernia with SBO, IMP: left inguinal hernia, plan, the hernia was reduced, no emergent surgery repair hernia now, recommend- hold plavix for 5 days, pt can take 81 mg ASA once a day now, plan to do open repair left inguinal hernia with mesh under sedation + local next week, D/W benefits, risks and alternatives of the surgery, pt understood, he agrees with the plan, I answered all questions, chemical librarian consult for pre-op cardiac clearance, clear diet today, will F/U 07/24/2020, 11:58AM stable, LIH, I recommend to do open repair left inguinal hernia with mesh under sedation + local on 07/26/2020, D/W benefits, risks and alternatives of the surgery, pt understood, he agrees with the surgery, I answered all questions, 07/25/2020, 12:33PM doing fine, pt will have open repair left inguinal hernia with mesh under sedation + local, D/W benefits, risks and alternatives of the surgery, the risks - infection, bleeding, hernia recurrence, complications relate to mesh, OK, DVT, stroke, , pt understood, he agrees with the surgery, I answered all questions, NPO after MN, hold iv heparin in morning, pt can take po meds with sip water, IV fluid 07/27/2020 11:17AM S/P open repair LIH, POD 1 doing fine, resume plavix today, pt can be discharged today or tomorrow, sign off today, please call with questions, Thanks, keep the dressing for 4 days, he can take a shower on 07/31/2020, F/U me in 2 weeks, Admission and Anticipated Discharge Date Admission Date: July 22, 2020 Subjective No acute events overnight. Pt is laying in bed in NAD. Denies any chest pain, abd. pain, incr. shortness of breath. Had BM yesterday after having laxatives. Plan for surgery later today. Seen by cardiology and pulm. for pre-op eval. Review of Systems Constitutional: as per Subjective / HPI Eyes: as per Subjective / HPI Ear, Nose, Mouth, Throat: as per Subjective / HPI Respiratory: as per Subjective / HPI COPD, asthma, bronchiectasis Cardiovascular: as per Subjective / HPI Additional Comments: A-fib, heart block, pacemaker Gastrointestinal: as per Subjective / HPI LIH, GERD, S/P cholecystectomy Genitourinary: + as per Subjective / HPI Musculoskeletal: as per Subjective / HPI Integumentary: as per Subjective / HPI Neurologic: as per Subjective / HPI TIA Psychiatric: as per Subjective / HPI Endocrine: as per Subjective / HPI Hematologic / Lymphatic: as per Subjective / HPI Allergy / Immunological: as per Subjective / HPI Physical Exam Constitutional: WD/WN, vitals as above well developed and well nourished Eyes: PERRL, conjunctivae normal, anicteric sclerae ENMT: external ear and nose normal, oropharynx normal Neck: trachea midline, no thyromegaly Respiratory: normal respiratory effort, lungs clear to auscultation Cardiovascular: Rate/Rhythm: + irregularly irregular Gastrointestinal (Abdomen): normal bowel sounds, soft, nontender, no hepatosplenomegaly incision intact, no redness, no bulging Musculoskeletal: no cyanosis or clubbing, extremities motor strength 5/5 Skin: no rashes, warm and dry Neurologic: awake Psychiatric: Orientation: alert and oriented x 3 Results & Data ([facility]) Vital Signs (Past 12 Hours) Vital Signs Temp Pulse Pulse Resp BP Pulse Ox 07/27/20 08:50 91 H 07/27/20 07:21 37.0 C 96 H 20 107/67 90 07/27/20 07:15 88 16 92 07/27/20 03:17 106 H 07/27/20 03:00 36.5 C 106 H 18 108/68 94 Laboratory Results Abnormal lab results 07/27/20 07/27/20 Range/Units 06:07 06:07 RBC 4.19 L (4.7-6.1) M/uL Hgb 12.9 L (14.0-18.0) g/dL Hct 38.7 L (42-52) % BUN/Creatinine Ratio 6.6 L (10-20) Calcium 8.3 L (8.5-10.1) mg/dl
--- NOTE | 2020-07-27 11:27 | Cardiology Progress Note ---
Date of Service July 27, 2020 Assessment & Plan (1) Atrial fibrillation: (2) Pacemaker: (3) Incarcerated inguinal hernia: (4) SBO (small bowel obstruction): 89-year-old patient POD #1 open inguinal hernia repair. Advance diet, pain management, out of bed as per surgical service. Restart clopidogrel 75 mg daily. Continue verapamil 240 mg nightly. Monitor telemetry. No further cardiac testing or intervention. Cardiology will sign off. Please contact with questions. Admission and Anticipated Discharge Date Admission Date: July 22, 2020 Subjective Patient seen and examined at the bedside. Feeling well post operatively. Reports abdominal wall soreness. Denies nausea or vomiting. No chest discomfort, palpitations, or lightheadedness. No orthopnea or paroxysmal nocturnal dyspnea. Telemetry demonstrates atrial fibrillation, PVCs, average heart rate 90 bpm. Review of Systems Review of Systems: All systems reviewed & are unremarkable except as noted in HPI & below Physical Exam Constitutional: well developed and well nourished; no acute distress and not ill appearing Respiratory: Auscultation: + rhonchi (Scattered bilateral, mild improvement with cough) and + wheezes (B/L expiratory); no crackles and no rales Cardiovascular: Rate/Rhythm: + irregularly irregular Heart Sounds: normal S1 and normal S2; no murmur and no cardiac rub Vessels: radial pulses present; no JVD and no carotid bruit Extremities: no edema Gastrointestinal (Abdomen): Inspection/Auscultation: + abnormal bowel sounds (Hypoactive) Percussion/Palpation: + abdomen tender (Tenderness to palpation) and + hernia (Left inguinal); no guarding and abdomen not rigid Skin: no rashes, warm and dry Neurologic: CN's II-XI intact bilaterally and moves all extremities Motor/Sensory: no tremor Psychiatric: A+Ox3, euthymic affect Results & Data ([facility]) Vital Signs (Past 12 Hours) Vital Signs Temp Pulse Pulse Resp BP Pulse Ox 07/27/20 08:50 91 H 07/27/20 07:21 37.0 C 96 H 20 107/67 90 07/27/20 07:15 88 16 92 07/27/20 03:17 106 H 07/27/20 03:00 36.5 C 106 H 18 108/68 94
[2020-07-27] MEDS: CLOPIDOGREL BISULFATE 75 MG TAB PO SCH (13:45)
[2020-07-27] MEDS: ALFUZOSIN HCL 10 MG TAB PO SCH (21:10)
[2020-07-27] MEDS: VERAPAMIL HCL 240 MG TABCR PO SCH (21:10)
[2020-07-27] MEDS: FINASTERIDE 5 MG TAB PO SCH (21:10)
[2020-07-27] MEDS: FLUTICASONE/VILANTEROL 200/25MCG 14 PUFFS/INHALER INH SCH (21:11)
[2020-07-27] MEDS: MONTELUKAST SODIUM 10 MG TABLET PO SCH (21:12)
[2020-07-28] MEDS: AMPICILLIN/SULBACTAM SOD 3,000 MG in 0.9 % SODIUM CHLORIDE 100 ML IV SCH ×4 (03:58→20:21)
[2020-07-28 05:47] LABS: Hematocrit (blood only) 37.2 % (42-52); Hemoglobin 12.4 g/dL (14.0-18.0); Mean Corpuscular Hemoglobin 30.5 pg (25-34); Mean Corpuscular Hgb Conc 33.3 g/dL (32-36); Mean Corpuscular Volume 91.4 fL (80-100); Mean Platelet Volume 9.4 fL (7.4-10.4); Platelet Count 186 K/uL (130-400); RDW Coefficient of Variation 13.4 % (11.5-14.5); RDW Standard Deviation 44.6 fL (36.4-46.3); Red Blood Count 4.07 M/uL (4.7-6.1); White Blood Count 6.69 K/uL (4.8-10.8)
[2020-07-28 06:12] LABS: BUN Creatinine Ratio 10.9 (10-20); Calcium 7.8 mg/dl (8.5-10.1); Creatinine Clr Calc Pharmacy 54.9 ml/min; Est GFR (Non-African American) 56.1; Potassium 3.7 mmol/L (3.5-5.1)
[2020-07-28] MEDS: SODIUM CHLOR 7% 4 ML NEB INH SCH ×3 (07:46→20:43)
[2020-07-28] MEDS: IPRATROPIUM BROMIDE NEB SOLN 0.02% 2.5 ML VIAL NEB SCH ×3 (07:46→20:34)
[2020-07-28] MEDS: LEVALBUTEROL 1.25MG/0.5ML NEB INH SCH ×3 (07:46→20:34)
[2020-07-28] MEDS: CALCIUM 600MG + VIT D 400 IU TAB PO SCH (08:07)
[2020-07-28] MEDS: CLOPIDOGREL BISULFATE 75 MG TAB PO SCH (08:07)
[2020-07-28] MEDS: LEVOTHYROXINE SODIUM 50 MCG TABLET PO SCH (08:07)
[2020-07-28] MEDS: GLUCOSAMINE SULFATE 500 MG CAP PO SCH (08:08)
[2020-07-28] MEDS: MULTIVITAMIN TAB PO SCH (08:08)
[2020-07-28] MEDS: guaiFENesin 600 MG TABCR PO SCH ×2 (08:08→20:18)
[2020-07-28] MEDS: LORATADINE 10 MG TAB PO SCH (08:09)
[2020-07-28] MEDS: PANTOprazole 40 MG TAB PO SCH ×2 (08:09→20:16)
[2020-07-28] MEDS: DOCUSATE SODIUM 100 MG CAP PO SCH ×2 (08:09→20:15)
[2020-07-28] MEDS ORDERED: SODIUM CHLORIDE 0.9% 1000ML 500 ML IV ONE (09:15)
[2020-07-28] MEDS: POLYETHYLENE (MIRALAX) 17 GM PACK PO SCH ×2 (09:29→17:00)
--- NOTE | 2020-07-28 09:42 | Hospitalist Progress Note ---
Date of Service July 28, 2020 Assessment & Plan (1) History of MAC infection: (2) MARU on CPAP: (3) Chronic atrial fibrillation: (4) Incarcerated inguinal hernia: (5) SBO (small bowel obstruction): (6) COPD (chronic obstructive pulmonary disease) case management patient: (7) GERD (gastroesophageal reflux disease): (8) PMR (polymyalgia rheumatica): (9) Pacemaker: (10) BPH (benign prostatic hypertrophy): (11) CKD (chronic kidney disease) stage 3, GFR 30-59 ml/min: ASSESSMENT AND PLAN: This an 89-year-old male who presents with abdominal pain and found to have small-bowel obstruction. 1. Abdominal pain, small-bowel obstruction, question of incarcerated inguinal hernia but later it was reducible, surgery consulted, now s/p Left inguinal hernia repair 07/26/2020. Pt tolerated procedure well. Pt had a BM on 07/25 after using laxatives. (Mag Citrate) . Currently pt is passing gas, has appetite, no BM. Chronic constipation Pt has hx of chronic constipation, on bowel regimen chronically Cont. bowel regimen and cont. to closely monitor Cardiology and Pulmonary medicine consulted for pre-op eval. Per pulmonary: There is no absolute contraindication from pulmonary perspective for the patient to have surgery. Given the history of MARU would recommend BiPAP/CPAP post extubation. Continue with flutter valve along with hypertonic saline nebulized. Per cardiology: restart Plavix 07/27, cont. verapamil. Hypotension Pt hypotensive this AM 07/28, also using 2-3L of O2 on recheck at bedside pt satting 90-92% on RA, BP 90/60s then high 70s, 500cc NSS bolus ordered Pt alert and oriented but reports feeling drowsy Reports he refused valve resp. treatment bc it makes him cough and he has pain in sugical site w/ coughing, encourage to cont. resp. regimen and ambulation Cont. to closely monitor 2. Possible aspiration pneumonia. Concern for poss. UTI on admission. Continue with Unasyn. Follow the cultures. Urine cultx - mixed marisabel, likely skin organism, therefore not likely UTI 3. 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 The patient is on verapamil. Not on anticoagulation secondary to recurrent spontaneous hematomas. on Plavix. Will continue to monitor. 4. History of TIA. On Plavix. 5. BPH. On finasteride. 6. Asthma. Continue home inhalers and nebs. 7. Sleep apnea, on CPAP. 8. Chronic kidney disease stage III, creatinine 1.03. We will follow the labs. Mild hypokalemia replete and monitor 9. Gastroesophageal reflux disease: On Protonix. 10. History of polymyalgia rheumatica. 11. Hypothyroidism. Continue Synthroid. 12. Constipation. Stool softeners. DVT prophylaxis, SCDs for now. Disposition: PT and OT prior to discharge. customer services supervisor to help with discharge planning. Admission and Anticipated Discharge Date Admission Date: July 22, 2020 Subjective Patient seen in follow-up, underwent left inguinal hernia repair 2 days ago. Now however hypotensive 90s over 60s, then systolic blood pressure in high 70s. Also requiring more supplemental oxygen. Patient states that he is refusing to use flutter valve, does not want to cough, when he coughs he has pain in his surgical site. Reports feeling drowsy. Pulse ox at bedside at 91% on room air. 500 cc bolus ordered. Patient is answering questions appropriately. Review of Systems Review of Systems: All systems reviewed & are unremarkable except as noted in HPI & below Constitutional: no fever and no chills Respiratory: + cough (has chronic cough, now tries not to cough d/t pain) and + dyspnea (reports at baseline) Cardiovascular: no chest pain, no palpitations and no edema Gastrointestinal: + abdominal pain (when coughing) and + constipation; no nausea and no vomiting Physical Exam Physical Exam: Gen- elderly male, laying in bed, in NAD, hard of hearing, AAO x 3, NAD, Afebrile Head- NCAT, EOMI, Anicteric Sclera Neck- Supple, No JVD Lungs- + loud bibasilar Rhonchi (worsened), no wheezing Chest- irregularly irregular, nl S1, nl S2, no murmur Abdomen- Soft, Bowel Sounds Present, Non Distended, s/p L inguinal hernia repair, dressings applied c/d/i, tender to palpation at surgical site. No Rigidity, No Guarding Musculoskeletal- Full Range of Motion Bilaterally Extremities- No Cyanosis, No Clubbing, No Edema Neuro- alert and oriented, answering questions appropriately, hard of hearing, speech fluent, no facial asymmetry, moves extremities spontaneously Psych-Normal Mood Results & Data Results & Data ([facility]) Vital Signs (Past 12 Hours) Vital Signs Temp Pulse Pulse Resp BP BP Pulse Ox 07/28/20 09:25 91 07/28/20 08:27 99/63 L 07/28/20 08:00 36.8 C 72 19 82/54 L 91 07/28/20 07:46 85 18 95 07/28/20 04:20 37.0 C 95 H 18 97/59 L 90 07/27/20 22:20 103 H 07/27/20 22:00 37.1 C 101 H 16 107/64 91 Laboratory Results 07/28/20 07/28/20 Range/Units 05:28 05:28 WBC 6.69 (4.8-10.8) K/uL RBC 4.07 L (4.7-6.1) M/uL Hgb 12.4 L (14.0-18.0) g/dL Hct 37.2 L (42-52) % MCV 91.4 (80-100) fL MCH 30.5 (25-34) pg MCHC 33.3 (32-36) g/dL RDW Std Deviation 44.6 (36.4-46.3) fL RDW Coeff of Lawson 13.4 (11.5-14.5) % Plt Count 186 (130-400) K/uL MPV 9.4 (7.4-10.4) fL Sodium 135 L (136-145) mmol/L Potassium 3.7 (3.5-5.1) mmol/L Chloride 104 (98-107) mmol/L Carbon Dioxide 27 (21-32) mmol/L Anion Gap 4.0 (3-11) BUN 13 D (7-18) mg/dl Creatinine 1.15 (0.6-1.4) mg/dl Est Cr Clr Drug Dosing 54.9 ml/min Est GFR ( Amer) 65.0 Est GFR (Non-Af Amer) 56.1 BUN/Creatinine Ratio 10.9 (10-20) Glucose 94 (70-99) mg/dl Calcium 7.8 L (8.5-10.1) mg/dl Medications Administered Current Inpatient Medications Alfuzosin HCl (Alfuzosin Hcl 10 Mg Tab) 10 mg PO HS [facility] Stop: 08/21/20 22:59 Last Admin: 07/27/20 21:10 Dose: 10 mg Documented by: Azithromycin (Azithromycin 250 Mg Tab) 0 mg PO .COMPLEX [facility] Stop: 07/28/20 18:32 Bisacodyl (Bisacodyl 10 Mg Supp) 10 mg RI Q12H [facility] Stop: 08/23/20 09:44 Last Admin: 07/27/20 21:13 Dose: 10 mg Documented by: Clopidogrel Bisulfate (Clopidogrel Bisulfate 75 Mg Tab) 75 mg PO QAM [facility] Stop: 08/26/20 11:59 Last Admin: 07/28/20 08:07 Dose: 75 mg Documented by: Diclofenac Sodium (Diclofenac Sod 1% Gel 100 Gm Tube) 2 gm EXT QID PRN PRN Reason: Pain Stop: 08/25/20 18:32 Docusate Sodium (Docusate Sodium 100 Mg Cap) 100 mg PO BID [facility] Stop: 08/21/20 22:59 Last Admin: 07/28/20 08:09 Dose: 100 mg Documented by: Finasteride (Finasteride 5 Mg Tab) 5 mg PO HS [facility] Stop: 08/21/20 22:59 Last Admin: 07/27/20 21:10 Dose: 5 mg Documented by: Fluticasone/Vilanterol (Fluticasone/Vilanterol 200/25mcg 14 Puffs/Inhaler) 1 puffs INH [facility] Stop: 08/21/20 22:59 Last Admin: 07/27/20 21:11 Dose: 1 puffs Documented by: Glucosamine Sulfate (Glucosamine Sulfate 500 Mg Cap) 1,000 mg PO QAM [facility] Stop: 08/26/20 08:59 Last Admin: 07/28/20 08:08 Dose: 1,000 mg Documented by: Guaifenesin (Guaifenesin 600 Mg Tabcr) 600 mg PO Q12 [facility] Stop: 08/25/20 20:59 Last Admin: 07/28/20 08:08 Dose: 600 mg Documented by: Ampicillin Sodium/Sulbactam Sodium 3,000 mg/ Sodium Chloride 108 mls @ 200 mls/hr IV Q6H [facility]; Protocol Stop: 07/29/20 21:18 Last Infusion: 07/28/20 04:43 Dose: Infused Documented by: Ipratropium [place] (Ipratropium [place] Neb Soln 0.02% 2.5 Ml Vial) 0.5 mg NEB TIDR [facility] Stop: 08/22/20 12:59 Last Admin: 07/28/20 07:46 Dose: 0.5 mg Documented by: Levalbuterol HCl (Levalbuterol Tartrate 15 Gm Hfa.Aer.Ad) 2 puffs INH Q8H PRN PRN Reason: Wheezing Stop: 08/21/20 21:18 Levalbuterol HCl (Levalbuterol 1.25mg/0.5ml Neb) 1.25 mg INH TIDR [facility] Stop: 08/22/20 12:59 Last Admin: 07/28/20 07:46 Dose: 1.25 mg Documented by: Levothyroxine Sodium (Levothyroxine Sodium 50 Mcg Tablet) 50 mcg PO DAILYBB [facility] Stop: 08/22/20 06:29 Last Admin: 07/28/20 08:07 Dose: 50 mcg Documented by: Loratadine (Loratadine 10 Mg Tab) 10 mg PO QAM [facility] Stop: 08/22/20 08:59 Last Admin: 07/28/20 08:09 Dose: 10 mg Documented by: Magnesium Oxide (Magnesium Oxide 400 Mg Tab) 400 mg PO BID [facility] Stop: 08/27/20 09:59 Metoprolol Tartrate (Metoprolol Tartrate 1 Mg/Ml Vial) 2.5 mg IV Q6 PRN PRN Reason: Tachycardia Stop: 08/21/20 21:18 Miscellaneous Information (Ampicillin/Sulbactam Consult Active) 1 ea N/A UD PRN PRN Reason: Consult Stop: 07/29/20 21:00 Montelukast Sodium (Montelukast Sodium 10 Mg Tablet) 10 mg PO HS [facility] Stop: 08/21/20 22:59 Last Admin: 07/27/20 21:12 Dose: 10 mg Documented by: Morphine Sulfate (Morphine Sulfate 4 Mg/Ml 1 Ml Carp\Vial) 3 mg IV Q3H PRN PRN Reason: Pain Stop: 08/05/20 21:18 Last Admin: 07/24/20 06:52 Dose: 3 mg Documented by: Multivitamins (Multivitamin Tab) 1 tab PO QAM [facility] Stop: 08/22/20 08:59 Last Admin: 07/28/20 08:08 Dose: 1 tab Documented by: Multivitamins/Minerals (Calcium 600mg + Vit D 400 Iu Tab) 1 tab PO QAM [facility] Stop: 08/25/20 18:32 Last Admin: 07/28/20 08:07 Dose: 1 tab Documented by: Ondansetron HCl (Ondansetron Inj 2 Mg/Ml 2 Ml Vial) 4 mg IV Q6H PRN PRN Reason: Nausea Stop: 08/21/20 19:45 Last Admin: 07/23/20 00:45 Dose: 4 mg Documented by: Pantoprazole Sodium (Pantoprazole 40 Mg Tab) 40 mg PO BID [facility] Stop: 08/25/20 20:59 Last Admin: 07/28/20 08:09 Dose: 40 mg Documented by: Polyethylene Glycol (Polyethylene (Miralax) 17 Gm Pack) 17 gm PO Q8H [facility] Stop: 08/23/20 09:44 Last Admin: 07/28/20 09:29 Dose: 17 gm Documented by: Potassium Chloride (Potassium Chloride Crtab 20 Meq Tabcr) 40 meq PO ONE ONE Stop: 07/28/20 10:01 Prednisone (Prednisone 20 Mg Tab) 0 mg NA .COMPLEX [facility] Stop: 08/25/20 18:32 Sodium Chloride (Sodium Chlor 7% 4 Ml Neb) 4 ml INH TIDR [facility] Stop: 08/21/20 22:59 Last Admin: 07/28/20 07:46 Dose: 4 ml Documented by: Verapamil HCl (Verapamil Hcl 240 Mg Tabcr) 240 mg PO HS [facility] Stop: 08/21/20 20:59 Last Admin: 07/27/20 21:10 Dose: 240 mg Documented by:
[2020-07-28] MEDS: bisacodyL 10 MG SUPP PR SCH ×2 (09:54→20:20)
[2020-07-28] MEDS ORDERED: POTASSIUM CHLORIDE CRTAB 20 MEQ TABCR PO ONE (10:00)
[2020-07-28] MEDS: MAGNESIUM OXIDE 400 MG TAB PO SCH ×2 (10:12→20:15)
[2020-07-28] MEDS ORDERED: SODIUM CHLORIDE 0.9% 1000ML 1,000 ML IV SCH (11:00)
--- NOTE | 2020-07-28 11:22 | XRay Report ---
XR chest 1V portable HISTORY: hypotension, incr. O2 req. COMPARISON: Chest 07/25/2020. FINDINGS: The heart remains mildly enlarged. Is left-sided dual-chamber pacemaker. No pneumothorax. S mall right pleural effusion has slightly increased in size. Slight progression of the interstitial an d vascular thickening consistent with mild pulmonary edema. No new focal lung consolidations identifi ed. IMPRESSION: Slight progression of mild interstitial pulmonary edema and small right pleural effusion. ACT 112: Negative or not required by law. Electronically signed by: Thee Hernandez M.D. 07/28/2020 11:21 AM
[2020-07-28] MEDS: ALBUMIN 25% 12.5 GM/50 ML VIAL IV SCH ×2 (12:29→14:32)
[2020-07-28 12:50] LABS: Hematocrit (blood only) 38.6 % (42-52); Hemoglobin 12.8 g/dL (14.0-18.0); Mean Corpuscular Hemoglobin 30.4 pg (25-34); Mean Corpuscular Volume 91.7 fL (80-100); Mean Platelet Volume 9.5 fL (7.4-10.4); Platelet Count 178 K/uL (130-400); RDW Coefficient of Variation 13.5 % (11.5-14.5); RDW Standard Deviation 44.8 fL (36.4-46.3); Red Blood Count 4.21 M/uL (4.7-6.1); White Blood Count 7.07 K/uL (4.8-10.8)
[2020-07-28 13:07] LABS: BUN Creatinine Ratio 11.7 (10-20); Calcium 8.4 mg/dl (8.5-10.1); Creatinine Clr Calc Pharmacy 54.9 ml/min; Est GFR (Non-African American) 56.1; Magnesium 2.1 mg/dl (1.8-2.4)
[2020-07-28 13:15] LABS: Phosphorus 3.1 mg/dl (2.5-4.9)
[2020-07-28 13:32] LABS: Mean Corpuscular Hgb Conc 33.2 g/dL (32-36)
[2020-07-28 15:55] LABS: Base Excess ABG 0.7 mEq/L (-9-1.8); HCO3 ABG 24 mmol/L (19-24); Oxygen Saturation ABG 96.5 % (90-95); PCO2 ABG 36 mmHg (35-46); PO2 ABG 82 mmHg (80-95); pH ABG 7.45 (7.35-7.45)
[2020-07-28 15:58] LABS: Allen Test POS (Pos)
[2020-07-28 16:06] LABS: Albumin Level 2.5 gm/dl (3.4-5.0); Bilirubin Direct 0.3 mg/dl (0-0.2); Bilirubin,Total 0.8 mg/dl (0.2-1); Total Protein 6.1 gm/dl (6.4-8.2)
[2020-07-28] MEDS: FLUTICASONE/VILANTEROL 200/25MCG 14 PUFFS/INHALER INH SCH (20:15)
[2020-07-28] MEDS: ALFUZOSIN HCL 10 MG TAB PO SCH (20:16)
[2020-07-28] MEDS: MONTELUKAST SODIUM 10 MG TABLET PO SCH (20:16)
[2020-07-28] MEDS: VERAPAMIL HCL 240 MG TABCR PO SCH (20:18)
[2020-07-28] MEDS: FINASTERIDE 5 MG TAB PO SCH (20:18)
[2020-07-29] MEDS: POLYETHYLENE (MIRALAX) 17 GM PACK PO SCH ×3 (01:21→17:29)
[2020-07-29] MEDS: AMPICILLIN/SULBACTAM SOD 3,000 MG in 0.9 % SODIUM CHLORIDE 100 ML IV SCH ×3 (03:53→16:05)
[2020-07-29] MEDS: LEVOTHYROXINE SODIUM 50 MCG TABLET PO SCH (05:47)
[2020-07-29] MEDS: SODIUM CHLOR 7% 4 ML NEB INH SCH ×3 (07:05→20:38)
[2020-07-29] MEDS: IPRATROPIUM BROMIDE NEB SOLN 0.02% 2.5 ML VIAL NEB SCH ×3 (07:05→20:26)
[2020-07-29] MEDS: LEVALBUTEROL 1.25MG/0.5ML NEB INH SCH ×3 (07:05→20:26)
--- NOTE | 2020-07-29 07:20 | Hospitalist Progress Note ---
Date of Service July 29, 2020 Assessment & Plan (1) History of MAC infection: (2) MARU on CPAP: (3) Chronic atrial fibrillation: (4) Incarcerated inguinal hernia: (5) SBO (small bowel obstruction): (6) COPD (chronic obstructive pulmonary disease) case management patient: (7) GERD (gastroesophageal reflux disease): (8) PMR (polymyalgia rheumatica): (9) Pacemaker: (10) BPH (benign prostatic hypertrophy): (11) CKD (chronic kidney disease) stage 3, GFR 30-59 ml/min: ASSESSMENT AND PLAN: This an 89-year-old male who presents with abdominal pain and found to have small-bowel obstruction. 1. Abdominal pain, small-bowel obstruction, question of incarcerated inguinal hernia but later it was reducible, surgery consulted, now s/p Left inguinal hernia repair 07/26/2020. Pt tolerated procedure well. Chronic constipation Pt has hx of chronic constipation, on bowel regimen chronically Cont. bowel regimen and cont. to closely monitor Pt had a BM on 07/25 after using laxatives. (Mag Citrate) . Small BM again on 07/28. Cardiology and Pulmonary medicine consulted for pre-op eval. Per pulmonary: There is no absolute contraindication from pulmonary perspective for the patient to have surgery. Given the history of MARU would recommend BiPAP/CPAP post extubation. Continue with flutter valve along with hypertonic saline nebulized. Per cardiology: restarted Plavix 07/27, cont. verapamil. Hypotension Pt hypotensive AM 07/28, also using 2-3L of O2 on recheck at bedside pt satting 90-92% on RA, BP 90/60s then SBP high 70s, 500cc NSS bolus ordered Pt alert and oriented but reports feeling drowsy Reports he refused valve resp. treatment bc it makes him cough and he has pain in sugical site w/ coughing, encourage to cont. resp. regimen and ambulation Cont. to closely monitor, transferred to PCU ABG, CXR, CBC, CMP, lactate obtained, overall unremarkable, except mild pulm. vasc. congestion Clinically pt much improved now, BM improved and pt no longer drowsy, feels back to his normal 2. Possible aspiration pneumonia. Concern for poss. UTI on admission. Continue with Unasyn. Follow the cultures. Urine cultx - mixed marisabel, likely skin organism, therefore not likely UTI 3. 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 The patient is on verapamil. Not on anticoagulation secondary to recurrent spontaneous hematomas. on Plavix. Will continue to monitor. 4. History of TIA. On Plavix. 5. BPH. On finasteride. 6. Asthma. Continue home inhalers and nebs. 7. Sleep apnea, on CPAP. 8. Chronic kidney disease stage III, creatinine 1.03. We will follow the labs. Mild hypokalemia replete and monitor 9. Gastroesophageal reflux disease: On Protonix. 10. History of polymyalgia rheumatica. 11. Hypothyroidism. Continue Synthroid. 12. Constipation. Stool softeners. DVT prophylaxis, SCDs for now. Disposition: PT and OT prior to discharge. manager managed backup services to help with discharge planning. Admission and Anticipated Discharge Date Admission Date: July 22, 2020 Subjective Patient is currently sitting up in a chair, in no acute distress. Reports that he is feeling better now. Yesterday patient was hypotensive and was requiring more oxygen. Blood pressure improved, and his saturating 95% on room air. He is currently eating, speaking in full sentences without any problems. He was able to wash himself up this AM. Yesterday he felt drowsy, now reports to feel back to baseline. Physical therapy to work with the patient later. Review of Systems Review of Systems: All systems reviewed & are unremarkable except as noted in HPI & below Constitutional: no fever and no chills Respiratory: + cough (has chronic cough, now tries not to cough d/t pain) and + dyspnea (reports at baseline) Cardiovascular: no chest pain and no palpitations Gastrointestinal: + abdominal pain (when coughing) and + constipation; no nausea and no vomiting Physical Exam Physical Exam: Gen- elderly male, laying in bed, in NAD, hard of hearing, AAO x 3, NAD, Afebrile Head- NCAT, EOMI, Anicteric Sclera Neck- Supple, No JVD Lungs- somewhat diminished breath sounds kiana. at bases, no wheezing, no crackles, + very mild rhonchi noted Chest- irregularly irregular, nl S1, nl S2, no murmur Abdomen- Soft, Bowel Sounds Present, Non Distended, s/p L inguinal hernia repair, dressings applied c/d/i, mildly tender to palpation at surgical site. No Rigidity, No Guarding Musculoskeletal- Full Range of Motion Bilaterally Extremities- No Cyanosis, No Clubbing, No Edema Neuro- alert and oriented, answering questions appropriately, hard of hearing, speech fluent, no facial asymmetry, moves extremities spontaneously Psych-Normal Mood Results & Data Results & Data ([facility]) Vital Signs (Past 12 Hours) Vital Signs Temp Pulse Resp BP Pulse Ox 07/29/20 07:06 75 20 94 07/29/20 03:46 36.4 C L 77 18 89/46 L 94 07/28/20 23:03 36.4 C L 78 19 118/71 94 07/28/20 20:43 84 18 96 07/28/20 20:34 81 18 91 07/28/20 19:28 36.4 C L 63 17 115/70 94 Laboratory Results 07/29/20 07/29/20 07/28/20 Range/Units 06:45 06:45 17:13 WBC 6.27 (4.8-10.8) K/uL RBC 3.97 L (4.7-6.1) M/uL Hgb 12.0 L (14.0-18.0) g/dL Hct 36.4 L (42-52) % MCV 91.7 (80-100) fL MCH 30.2 (25-34) pg MCHC 33.0 (32-36) g/dL RDW Std Deviation 44.5 (36.4-46.3) fL RDW Coeff of Lawson 13.4 (11.5-14.5) % Plt Count 190 (130-400) K/uL MPV 9.8 (7.4-10.4) fL ABG pH (7.35-7.45) ABG pCO2 (35-46) mmHg ABG pO2 (80-95) mmHg ABG HCO3 (19-24) mmol/L ABG O2 Saturation (90-95) % ABG Base Excess (-9-1.8) mEq/L Dheeraj Test (Pos) Barometric Pressure mm/Hg Oxygen Given Sodium 138 (136-145) mmol/L Potassium 3.8 (3.5-5.1) mmol/L Chloride 106 (98-107) mmol/L Carbon Dioxide 27 (21-32) mmol/L Anion Gap 5.0 (3-11) BUN 15 (7-18) mg/dl Creatinine 1.12 (0.6-1.4) mg/dl Est Cr Clr Drug Dosing 55.8 ml/min Est GFR ( Amer) 67.1 Est GFR (Non-Af Amer) 57.9 BUN/Creatinine Ratio 13.0 (10-20) Glucose 86 (70-99) mg/dl Lactate (0.4-2.0) mmol/L Calcium 8.2 L (8.5-10.1) mg/dl Total Bilirubin (0.2-1) mg/dl Direct Bilirubin (0-0.2) mg/dl AST (15-37) U/L ALT (12-78) U/L Alkaline Phosphatase (45-117) U/L Total Protein (6.4-8.2) gm/dl Albumin (3.4-5.0) gm/dl COVID-19 Eval Order SARS-CoV-2, RNA, NAAT NEGATIVE (NEGATIVE) 07/28/20 07/28/20 07/28/20 Range/Units 17:13 15:31 15:31 WBC (4.8-10.8) K/uL RBC (4.7-6.1) M/uL Hgb (14.0-18.0) g/dL Hct (42-52) % MCV (80-100) fL MCH (25-34) pg MCHC (32-36) g/dL RDW Std Deviation (36.4-46.3) fL RDW Coeff of Lawson (11.5-14.5) % Plt Count (130-400) K/uL MPV (7.4-10.4) fL ABG pH 7.45 (7.35-7.45) ABG pCO2 36 (35-46) mmHg ABG pO2 82 (80-95) mmHg ABG HCO3 24 (19-24) mmol/L ABG O2 Saturation 96.5 H (90-95) % ABG Base Excess 0.7 (-9-1.8) mEq/L Dheeraj Test POS (Pos) Barometric Pressure 740.0 mm/Hg Oxygen Given 3 L BIPAP Sodium (136-145) mmol/L Potassium (3.5-5.1) mmol/L Chloride (98-107) mmol/L Carbon Dioxide (21-32) mmol/L Anion Gap (3-11) BUN (7-18) mg/dl Creatinine (0.6-1.4) mg/dl Est Cr Clr Drug Dosing ml/min Est GFR ( Amer) Est GFR (Non-Af Amer) BUN/Creatinine Ratio (10-20) Glucose (70-99) mg/dl Lactate (0.4-2.0) mmol/L Calcium (8.5-10.1) mg/dl Total Bilirubin 0.8 (0.2-1) mg/dl Direct Bilirubin 0.3 H (0-0.2) mg/dl AST 16 (15-37) U/L ALT 14 (12-78) U/L Alkaline Phosphatase 66 (45-117) U/L Total Protein 6.1 L (6.4-8.2) gm/dl Albumin 2.5 L (3.4-5.0) gm/dl COVID-19 Eval [facility] SARS-CoV-2, RNA, NAAT (NEGATIVE) 07/28/20 Range/Units 15:31 WBC (4.8-10.8) K/uL RBC (4.7-6.1) M/uL Hgb (14.0-18.0) g/dL Hct (42-52) % MCV (80-100) fL MCH (25-34) pg MCHC (32-36) g/dL RDW Std Deviation (36.4-46.3) fL RDW Coeff of Lawson (11.5-14.5) % Plt Count (130-400) K/uL MPV (7.4-10.4) fL ABG pH (7.35-7.45) ABG pCO2 (35-46) mmHg ABG pO2 (80-95) mmHg ABG HCO3 (19-24) mmol/L ABG O2 Saturation (90-95) % ABG Base Excess (-9-1.8) mEq/L Dheeraj Test (Pos) Barometric Pressure mm/Hg Oxygen Given Sodium (136-145) mmol/L Potassium (3.5-5.1) mmol/L Chloride (98-107) mmol/L Carbon Dioxide (21-32) mmol/L Anion Gap (3-11) BUN (7-18) mg/dl Creatinine (0.6-1.4) mg/dl Est Cr Clr Drug Dosing ml/min Est GFR ( Amer) Est GFR (Non-Af Amer) BUN/Creatinine Ratio (10-20) Glucose (70-99) mg/dl Lactate 0.6 (0.4-2.0) mmol/L Calcium (8.5-10.1) mg/dl Total Bilirubin (0.2-1) mg/dl Direct Bilirubin (0-0.2) mg/dl AST (15-37) U/L ALT (12-78) U/L Alkaline Phosphatase (45-117) U/L Total Protein (6.4-8.2) gm/dl Albumin (3.4-5.0) gm/dl COVID-19 Eval Order SARS-CoV-2, RNA, NAAT (NEGATIVE) Medications Administered Current Inpatient Medications Alfuzosin HCl (Alfuzosin Hcl 10 Mg Tab) 10 mg PO HS [facility] Stop: 08/21/20 22:59 Last Admin: 07/28/20 20:16 Dose: 10 mg Documented by: Bisacodyl (Bisacodyl 10 Mg Supp) 10 mg LA Q12H [facility] Stop: 08/23/20 09:44 Last Admin: 07/28/20 20:20 Dose: 10 mg Documented by: Bisacodyl (Bisacodyl 5 Mg Tabec) 5 mg PO BID [facility] Stop: 08/28/20 08:59 Last Admin: 07/29/20 08:44 Dose: 5 mg Documented by: Clopidogrel Bisulfate (Clopidogrel Bisulfate 75 Mg Tab) 75 mg PO QAM [facility] Stop: 08/26/20 11:59 Last Admin: 07/29/20 08:37 Dose: 75 mg Documented by: Diclofenac Sodium (Diclofenac Sod 1% Gel 100 Gm Tube) 2 gm EXT QID PRN PRN Reason: Pain Stop: 08/25/20 18:32 Docusate Sodium (Docusate Sodium 100 Mg Cap) 100 mg PO BID [facility] Stop: 08/21/20 22:59 Last Admin: 07/29/20 08:38 Dose: 100 mg Documented by: Finasteride (Finasteride 5 Mg Tab) 5 mg PO HS [facility] Stop: 08/21/20 22:59 Last Admin: 07/28/20 20:18 Dose: 5 mg Documented by: Fluticasone/Vilanterol (Fluticasone/Vilanterol 200/25mcg 14 Puffs/Inhaler) 1 puffs INH HS [facility] Stop: 08/21/20 22:59 Last Admin: 07/28/20 20:15 Dose: 1 puffs Documented by: Glucosamine Sulfate (Glucosamine Sulfate 500 Mg Cap) 1,000 mg PO QAM [facility] Stop: 08/26/20 08:59 Last Admin: 07/29/20 08:37 Dose: 1,000 mg Documented by: Guaifenesin (Guaifenesin 600 Mg Tabcr) 600 mg PO Q12 [facility] Stop: 08/25/20 20:59 Last Admin: 07/29/20 08:38 Dose: 600 mg Documented by: Ampicillin Sodium/Sulbactam Sodium 3,000 mg/ Sodium Chloride 108 mls @ 200 mls/hr IV Q6H [facility]; Protocol Stop: 07/29/20 21:18 Last Infusion: 07/29/20 10:36 Dose: Infused Documented by: Ipratropium [place] (Ipratropium [place] Neb Soln 0.02% 2.5 Ml Vial) 0.5 mg NEB TIDR [facility] Stop: 08/22/20 12:59 Last Admin: 07/29/20 13:54 Dose: 0.5 mg Documented by: Levalbuterol HCl (Levalbuterol Tartrate 15 Gm Hfa.Aer.Ad) 2 puffs INH Q8H PRN PRN Reason: Wheezing Stop: 08/21/20 21:18 Levalbuterol HCl (Levalbuterol 1.25mg/0.5ml Neb) 1.25 mg INH TIDR [facility] Stop: 08/22/20 12:59 Last Admin: 07/29/20 13:54 Dose: 1.25 mg Documented by: Levothyroxine Sodium (Levothyroxine Sodium 50 Mcg Tablet) 50 mcg PO DAILYBB [facility] Stop: 08/22/20 06:29 Last Admin: 07/29/20 05:47 Dose: 50 mcg Documented by: Loratadine (Loratadine 10 Mg Tab) 10 mg PO QAM [facility] Stop: 08/22/20 08:59 Last Admin: 07/29/20 08:37 Dose: 10 mg Documented by: Magnesium Citrate (Magnesium Citrate 296 Ml/Btl) 148 ml PO DAILY PRN PRN Reason: constipation Stop: 08/28/20 08:59 Magnesium Oxide (Magnesium Oxide 400 Mg Tab) 400 mg PO BID [facility] Stop: 08/27/20 09:59 Last Admin: 07/29/20 08:38 Dose: 400 mg Documented by: Metoprolol Tartrate (Metoprolol Tartrate 1 Mg/Ml Vial) 2.5 mg IV Q6 PRN PRN Reason: Tachycardia Stop: 08/21/20 21:18 Miscellaneous Information (Ampicillin/Sulbactam Consult Active) 1 ea N/A UD PRN PRN Reason: Consult Stop: 07/29/20 21:00 Montelukast Sodium (Montelukast Sodium 10 Mg Tablet) 10 mg PO HS [facility] Stop: 08/21/20 22:59 Last Admin: 07/28/20 20:16 Dose: 10 mg Documented by: Morphine Sulfate (Morphine Sulfate 4 Mg/Ml 1 Ml Carp\Vial) 3 mg IV Q3H PRN PRN Reason: Pain Stop: 08/05/20 21:18 Last Admin: 07/24/20 06:52 Dose: 3 mg Documented by: Multivitamins (Multivitamin Tab) 1 tab PO QAM [facility] Stop: 08/22/20 08:59 Last Admin: 07/29/20 08:38 Dose: 1 tab Documented by: Multivitamins/Minerals (Calcium 600mg + Vit D 400 Iu Tab) 1 tab PO QAM [facility] Stop: 08/25/20 18:32 Last Admin: 07/29/20 08:37 Dose: 1 tab Documented by: Ondansetron HCl (Ondansetron Inj 2 Mg/Ml 2 Ml Vial) 4 mg IV Q6H PRN PRN Reason: Nausea Stop: 08/21/20 19:45 Last Admin: 07/23/20 00:45 Dose: 4 mg Documented by: Pantoprazole Sodium (Pantoprazole 40 Mg Tab) 40 mg PO BID [facility] Stop: 08/25/20 20:59 Last Admin: 07/29/20 08:38 Dose: 40 mg Documented by: Polyethylene Glycol (Polyethylene (Miralax) 17 Gm Pack) 17 gm PO Q8H [facility] Stop: 08/23/20 09:44 Last Admin: 07/29/20 09:44 Dose: 17 gm Documented by: Prednisone (Prednisone 20 Mg Tab) 0 mg NA .COMPLEX [facility] Stop: 08/25/20 18:32 Sodium Chloride (Sodium Chlor 7% 4 Ml Neb) 4 ml INH TIDR [facility] Stop: 08/21/20 22:59 Last Admin: 07/29/20 13:54 Dose: 4 ml Documented by: Verapamil HCl (Verapamil Hcl 240 Mg Tabcr) 240 mg PO HS [facility] Stop: 08/21/20 20:59 Last Admin: 07/28/20 20:18 Dose: 240 mg Documented by:
[2020-07-29 07:47] LABS: Hematocrit (blood only) 36.4 % (42-52); Mean Corpuscular Hemoglobin 30.2 pg (25-34); Mean Corpuscular Volume 91.7 fL (80-100); Mean Platelet Volume 9.8 fL (7.4-10.4); Platelet Count 190 K/uL (130-400); RDW Coefficient of Variation 13.4 % (11.5-14.5); RDW Standard Deviation 44.5 fL (36.4-46.3); Red Blood Count 3.97 M/uL (4.7-6.1); White Blood Count 6.27 K/uL (4.8-10.8)
[2020-07-29 08:15] LABS: Calcium 8.2 mg/dl (8.5-10.1); Creatinine Clr Calc Pharmacy 55.8 ml/min; Est GFR (African American) 67.1; Est GFR (Non-African American) 57.9; Potassium 3.8 mmol/L (3.5-5.1)
[2020-07-29] MEDS: CALCIUM 600MG + VIT D 400 IU TAB PO SCH (08:37)
[2020-07-29] MEDS: GLUCOSAMINE SULFATE 500 MG CAP PO SCH (08:37)
[2020-07-29] MEDS: LORATADINE 10 MG TAB PO SCH (08:37)
[2020-07-29] MEDS: CLOPIDOGREL BISULFATE 75 MG TAB PO SCH (08:37)
[2020-07-29] MEDS: MULTIVITAMIN TAB PO SCH (08:38)
[2020-07-29] MEDS: DOCUSATE SODIUM 100 MG CAP PO SCH ×2 (08:38→21:30)
[2020-07-29] MEDS: guaiFENesin 600 MG TABCR PO SCH ×2 (08:38→21:23)
[2020-07-29] MEDS: PANTOprazole 40 MG TAB PO SCH ×2 (08:38→21:00)
[2020-07-29] MEDS: MAGNESIUM OXIDE 400 MG TAB PO SCH ×2 (08:38→21:23)
[2020-07-29] MEDS: bisacodyL 5 MG TABEC PO SCH ×2 (08:44→21:30)
--- NOTE | 2020-07-29 09:52 | XRay Report ---
XR chest 1V portable HISTORY: Shortness of breath. follow up COMPARISON: Chest 07/28/2020. FINDINGS: No pneumothorax. Left-sided dual-chamber pacemaker. The heart remains mildly enlarged. Mild interstitial thickening and a trace right pleural effusion have improved. IMPRESSION: Slight improvement in the mild interstitial pulmonary edema and trace right pleural effusion. ACT 112: Negative or not required by law. Electronically signed by: Thee Hernandez M.D. 07/29/2020 9:51 AM
[2020-07-29] MEDS: VERAPAMIL HCL 240 MG TABCR PO SCH (21:20)
[2020-07-29] MEDS: FLUTICASONE/VILANTEROL 200/25MCG 14 PUFFS/INHALER INH SCH (21:21)
[2020-07-29] MEDS: MONTELUKAST SODIUM 10 MG TABLET PO SCH (21:23)
[2020-07-29] MEDS: ALFUZOSIN HCL 10 MG TAB PO SCH (21:23)
[2020-07-29] MEDS: FINASTERIDE 5 MG TAB PO SCH (21:26)
[2020-07-29] MEDS: MAGNESIUM CITRATE 296 ML/BTL PO PRN (22:08)
[2020-07-30] MEDS: POLYETHYLENE (MIRALAX) 17 GM PACK PO SCH ×2 (03:48→08:20)
[2020-07-30 06:16] LABS: Hematocrit (blood only) 37.4 % (42-52); Hemoglobin 12.2 g/dL (14.0-18.0); Mean Corpuscular Hemoglobin 29.8 pg (25-34); Mean Corpuscular Hgb Conc 32.6 g/dL (32-36); Mean Corpuscular Volume 91.2 fL (80-100); Mean Platelet Volume 9.6 fL (7.4-10.4); Platelet Count 226 K/uL (130-400); RDW Coefficient of Variation 13.3 % (11.5-14.5); RDW Standard Deviation 44.3 fL (36.4-46.3); White Blood Count 6.67 K/uL (4.8-10.8)
[2020-07-30] MEDS: LEVOTHYROXINE SODIUM 50 MCG TABLET PO SCH (06:36)
[2020-07-30 06:44] LABS: BUN Creatinine Ratio 16.8 (10-20); Calcium 8.2 mg/dl (8.5-10.1); Creatinine Clr Calc Pharmacy 60.1 ml/min; Est GFR (African American) 73.4; Est GFR (Non-African American) 63.4; Potassium 3.8 mmol/L (3.5-5.1)
[2020-07-30] MEDS: IPRATROPIUM BROMIDE NEB SOLN 0.02% 2.5 ML VIAL NEB SCH (07:04)
[2020-07-30] MEDS: LEVALBUTEROL 1.25MG/0.5ML NEB INH SCH (07:05)
[2020-07-30] MEDS: SODIUM CHLOR 7% 4 ML NEB INH SCH (07:05)
[2020-07-30] MEDS: PANTOprazole 40 MG TAB PO SCH (08:13)
[2020-07-30] MEDS: LORATADINE 10 MG TAB PO SCH (08:14)
[2020-07-30] MEDS: CLOPIDOGREL BISULFATE 75 MG TAB PO SCH (08:14)
[2020-07-30] MEDS: MULTIVITAMIN TAB PO SCH (08:14)
[2020-07-30] MEDS: CALCIUM 600MG + VIT D 400 IU TAB PO SCH (08:14)
[2020-07-30] MEDS: guaiFENesin 600 MG TABCR PO SCH (08:14)
[2020-07-30] MEDS: GLUCOSAMINE SULFATE 500 MG CAP PO SCH (08:14)
[2020-07-30] MEDS: MAGNESIUM OXIDE 400 MG TAB PO SCH (08:14)
[2020-07-30] MEDS: MAGNESIUM CITRATE 296 ML/BTL PO PRN (08:15)
[2020-07-30] MEDS: bisacodyL 5 MG TABEC PO SCH (08:20)
[2020-07-30] MEDS: DOCUSATE SODIUM 100 MG CAP PO SCH (08:20)
--- NOTE | 2020-07-30 10:30 | Hospitalist Progress Note ---
Date of Service July 30, 2020 Assessment & Plan (1) History of MAC infection: (2) MARU on CPAP: (3) Chronic atrial fibrillation: (4) Incarcerated inguinal hernia: (5) SBO (small bowel obstruction): (6) COPD (chronic obstructive pulmonary disease) case management patient: (7) GERD (gastroesophageal reflux disease): (8) PMR (polymyalgia rheumatica): (9) Pacemaker: (10) BPH (benign prostatic hypertrophy): (11) CKD (chronic kidney disease) stage 3, GFR 30-59 ml/min: ASSESSMENT AND PLAN: This an 89-year-old male who presents with abdominal pain and found to have small-bowel obstruction. 1. Abdominal pain, small-bowel obstruction, question of incarcerated inguinal hernia but later it was reducible, surgery consulted, now s/p Left inguinal hernia repair 07/26/2020. Pt tolerated procedure well. Chronic constipation Pt has hx of chronic constipation, on bowel regimen chronically Cont. bowel regimen and cont. to closely monitor Pt had a BM on 07/25 after using laxatives. (Mag Citrate) . Small BM again on 07/28, and also today 07/30. Cardiology and Pulmonary medicine consulted for pre-op eval. Per pulmonary: There is no absolute contraindication from pulmonary perspective for the patient to have surgery. Given the history of MARU would recommend BiPAP/CPAP post extubation. Continue with flutter valve along with hypertonic saline nebulized. Per cardiology: restarted Plavix 07/27, cont. verapamil. Hypotension Pt hypotensive AM 07/28, also using 2-3L of O2 on recheck at bedside pt satting 90-92% on RA, BP 90/60s then SBP high 70s, 500cc NSS bolus ordered Pt alert and oriented but reported feeling drowsy Reports he refused valve resp. treatment bc it makes him cough and he has pain in sugical site w/ coughing, encourage to cont. resp. regimen and ambulation Cont. to closely monitor, transferred to PCU ABG, CXR, CBC, CMP, lactate obtained, overall unremarkable, except mild pulm. vasc. congestion Clinically pt much improved now, BM improved and pt no longer drowsy, feels back to his normal 2. Possible aspiration pneumonia. Concern for poss. UTI on admission. Continue with Unasyn. Follow the cultures. Urine cultx - mixed marisabel, likely skin organism, therefore not likely UTI 3. 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 The patient is on verapamil. Not on anticoagulation secondary to recurrent spontaneous hematomas. on Plavix. Will continue to monitor. 4. History of TIA. On Plavix. 5. BPH. On finasteride. 6. Asthma. Continue home inhalers and nebs. 7. Sleep apnea, on CPAP. 8. Chronic kidney disease stage III, creatinine 1.03. We will follow the labs. Mild hypokalemia replete and monitor 9. Gastroesophageal reflux disease: On Protonix. 10. History of polymyalgia rheumatica. 11. Hypothyroidism. Continue Synthroid. 12. Constipation. Stool softeners. DVT prophylaxis, SCDs for now. Disposition: PT and OT prior to discharge. director of volunteer services to help with discharge planning. Home health arranged. Admission and Anticipated Discharge Date Admission Date: July 22, 2020 Subjective Patient is currently sitting up in bed, in no acute distress, eating. Reports he had a BM w/ stool softeners. Pt feels well, satting 93% on RA. No chest pain, dizziness, or feeling drowsy. Discussed discharge home, pt excited about that. Review of Systems Review of Systems: All systems reviewed & are unremarkable except as noted in HPI & below Constitutional: no fever and no chills Respiratory: + cough (has chronic cough, now tries not to cough d/t post. surg.pain) and + dyspnea (reports at baseline) Cardiovascular: no chest pain, no palpitations and no edema Gastrointestinal: + abdominal pain (when coughing); no nausea and no vomiting Physical Exam Physical Exam: Gen- elderly male, laying in bed, in NAD, hard of hearing, AAO x 3, NAD Head- NCAT, EOMI, Anicteric Sclera Neck- Supple, No JVD Lungs- somewhat diminished breath sounds kiana. at bases, no wheezing, no crackles, + very mild rhonchi noted Chest- irregularly irregular, nl S1, nl S2, no murmur Abdomen- Soft, Bowel Sounds Present, Non Distended, s/p L inguinal hernia repair, dressings applied c/d/i, mildly tender to palpation at surgical site. No Rigidity, No Guarding Musculoskeletal- Full Range of Motion Bilaterally Extremities- No Cyanosis, No Clubbing, No Edema Neuro- alert and oriented, answering questions appropriately, hard of hearing, speech fluent, no facial asymmetry, moves extremities spontaneously Psych-Normal Mood Results & Data Results & Data ([facility]) Vital Signs (Past 12 Hours) Vital Signs Temp Pulse Pulse Resp BP Pulse Ox 07/30/20 08:15 73 07/30/20 08:04 36.6 C 70 16 106/60 94 07/30/20 07:07 77 20 95 07/30/20 03:57 36.6 C 74 18 96/61 L 94 07/29/20 23:08 36.4 C L 87 19 123/77 95 Laboratory Results 07/30/20 07/30/20 Range/Units 05:36 05:36 WBC 6.67 (4.8-10.8) K/uL RBC 4.10 L (4.7-6.1) M/uL Hgb 12.2 L (14.0-18.0) g/dL Hct 37.4 L (42-52) % MCV 91.2 (80-100) fL MCH 29.8 (25-34) pg MCHC 32.6 (32-36) g/dL RDW Std Deviation 44.3 (36.4-46.3) fL RDW Coeff of Lawson 13.3 (11.5-14.5) % Plt Count 226 (130-400) K/uL MPV 9.6 (7.4-10.4) fL Sodium 136 (136-145) mmol/L Potassium 3.8 (3.5-5.1) mmol/L Chloride 105 (98-107) mmol/L Carbon Dioxide 28 (21-32) mmol/L Anion Gap 3.0 (3-11) BUN 17 (7-18) mg/dl Creatinine 1.04 (0.6-1.4) mg/dl Est Cr Clr Drug Dosing 60.1 ml/min Est GFR ( Amer) 73.4 Est GFR (Non-Af Amer) 63.4 BUN/Creatinine Ratio 16.8 (10-20) Glucose 86 (70-99) mg/dl Calcium 8.2 L (8.5-10.1) mg/dl Medications Administered Current Inpatient Medications Alfuzosin HCl (Alfuzosin Hcl 10 Mg Tab) 10 mg PO HS DONOVAN Stop: 08/21/20 22:59 Last Admin: 07/29/20 21:23 Dose: 10 mg Documented by: Bisacodyl (Bisacodyl 10 Mg Supp) 10 mg MD Q12H DONOVAN Stop: 08/23/20 09:44 Last Admin: 07/28/20 20:20 Dose: 10 mg Documented by: Bisacodyl (Bisacodyl 5 Mg Tabec) 5 mg PO BID DONOVAN Stop: 08/28/20 08:59 Last Admin: 07/30/20 08:20 Dose: 5 mg Documented by: Clopidogrel Bisulfate (Clopidogrel Bisulfate 75 Mg Tab) 75 mg PO QAM [facility] Stop: 08/26/20 11:59 Last Admin: 07/30/20 08:14 Dose: 75 mg Documented by: Diclofenac Sodium (Diclofenac Sod 1% Gel 100 Gm Tube) 2 gm EXT QID PRN PRN Reason: Pain Stop: 08/25/20 18:32 Docusate Sodium (Docusate Sodium 100 Mg Cap) 100 mg PO BID DONOVAN Stop: 08/21/20 22:59 Last Admin: 07/30/20 08:20 Dose: 100 mg Documented by: Finasteride (Finasteride 5 Mg Tab) 5 mg PO HS [facility] Stop: 08/21/20 22:59 Last Admin: 07/29/20 21:26 Dose: 5 mg Documented by: Fluticasone/Vilanterol (Fluticasone/Vilanterol 200/25mcg 14 Puffs/Inhaler) 1 puffs INH HS [facility] Stop: 08/21/20 22:59 Last Admin: 07/29/20 21:21 Dose: 1 puffs Documented by: Glucosamine Sulfate (Glucosamine Sulfate 500 Mg Cap) 1,000 mg PO QAM [facility] Stop: 08/26/20 08:59 Last Admin: 07/30/20 08:14 Dose: 1,000 mg Documented by: Guaifenesin (Guaifenesin 600 Mg Tabcr) 600 mg PO Q12 [facility] Stop: 08/25/20 20:59 Last Admin: 07/30/20 08:14 Dose: 600 mg Documented by: Ipratropium [place] (Ipratropium [place] Neb Soln 0.02% 2.5 Ml Vial) 0.5 mg NEB TIDR DONOVAN Stop: 08/22/20 12:59 Last Admin: 07/30/20 07:04 Dose: 0.5 mg Documented by: Levalbuterol HCl (Levalbuterol Tartrate 15 Gm Hfa.Aer.Ad) 2 puffs INH Q8H PRN PRN Reason: Wheezing Stop: 08/21/20 21:18 Levalbuterol HCl (Levalbuterol 1.25mg/0.5ml Neb) 1.25 mg INH TIDR DONOVAN Stop: 08/22/20 12:59 Last Admin: 07/30/20 07:05 Dose: 1.25 mg Documented by: Levothyroxine Sodium (Levothyroxine Sodium 50 Mcg Tablet) 50 mcg PO DAILYBB [facility] Stop: 08/22/20 06:29 Last Admin: 07/30/20 06:36 Dose: 50 mcg Documented by: Loratadine (Loratadine 10 Mg Tab) 10 mg PO QAM [facility] Stop: 08/22/20 08:59 Last Admin: 07/30/20 08:14 Dose: 10 mg Documented by: Magnesium Citrate (Magnesium Citrate 296 Ml/Btl) 148 ml PO DAILY PRN PRN Reason: constipation Stop: 08/28/20 08:59 Last Admin: 07/30/20 08:15 Dose: 148 ml Documented by: Magnesium Oxide (Magnesium Oxide 400 Mg Tab) 400 mg PO BID [facility] Stop: 08/27/20 09:59 Last Admin: 07/30/20 08:14 Dose: 400 mg Documented by: Metoprolol Tartrate (Metoprolol Tartrate 1 Mg/Ml Vial) 2.5 mg IV Q6 PRN PRN Reason: Tachycardia Stop: 08/21/20 21:18 Montelukast Sodium (Montelukast Sodium 10 Mg Tablet) 10 mg PO HS [facility] Stop: 08/21/20 22:59 Last Admin: 07/29/20 21:23 Dose: 10 mg Documented by: Morphine Sulfate (Morphine Sulfate 4 Mg/Ml 1 Ml Carp\Vial) 3 mg IV Q3H PRN PRN Reason: Pain Stop: 08/05/20 21:18 Last Admin: 07/24/20 06:52 Dose: 3 mg Documented by: Multivitamins (Multivitamin Tab) 1 tab PO QAM [facility] Stop: 08/22/20 08:59 Last Admin: 07/30/20 08:14 Dose: 1 tab Documented by: Multivitamins/Minerals (Calcium 600mg + Vit D 400 Iu Tab) 1 tab PO QAM [facility] Stop: 08/25/20 18:32 Last Admin: 07/30/20 08:14 Dose: 1 tab Documented by: Ondansetron HCl (Ondansetron Inj 2 Mg/Ml 2 Ml Vial) 4 mg IV Q6H PRN PRN Reason: Nausea Stop: 08/21/20 19:45 Last Admin: 07/23/20 00:45 Dose: 4 mg Documented by: Pantoprazole Sodium (Pantoprazole 40 Mg Tab) 40 mg PO BID [facility] Stop: 08/25/20 20:59 Last Admin: 07/30/20 08:13 Dose: 40 mg Documented by: Polyethylene Glycol (Polyethylene (Miralax) 17 Gm Pack) 17 gm PO Q8H [facility] Stop: 08/23/20 09:44 Last Admin: 07/30/20 08:20 Dose: 17 gm Documented by: Prednisone (Prednisone 20 Mg Tab) 0 mg NA .COMPLEX DON[facility]AN Stop: 08/25/20 18:32 Sodium Chloride (Sodium Chlor 7% 4 Ml Neb) 4 ml INH TIDR [facility] Stop: 08/21/20 22:59 Last Admin: 07/30/20 07:05 Dose: 4 ml Documented by: Verapamil HCl (Verapamil Hcl 240 Mg Tabcr) 240 mg PO HS DON[facility]AN Stop: 08/21/20 20:59 Last Admin: 07/29/20 21:20 Dose: 240 mg Documented by:
--- NOTE | 2020-07-30 12:35 | Discharge Summary ---
Date of Service July 30, 2020 Admission HPI Per Admitting Provider This is an 89-year-old male with past medical history significant for chronic respiratory failure, asthma, bronchiectasis, COPD, nonallergic rhinitis, obstructive sleep apnea on CPAP, chronic atrial fibrillation, chronic systolic heart failure, abdominal aortic aneurysm, history of heart block status post pacemaker, GERD, chronic kidney disease stage III, BPH, polymyalgia rheumatica, history of Mycobacterium avium intracellulare infection, history of TIA, history of splenic mass, history of skin cancer who lives alone at home. Uses cane with walker, gets help at home 5 days a week 2 hours a day. The patient says he is getting constipated for the last 2 weeks, having very hard stools, sometimes some blood with her stools, but he did not moved his bowels for the last 5 days and having abdominal pain.He is also having on and off nausea for last 2 weeks, but not today. Appetite is okay, but he did not eat anything since the breakfast today.For his ongoing symptoms, he came to the ER. CAT scan showing small-bowel obstruction. ER notified. 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 Currently, says pain is better with the pain medication. Nausea improved. No other problems. Denies any chest pain, no shortness of breath. He has cough and runny nose, says because of his asthma. Denies any shortness of breath, no chest pain. No headache, no blurred visions. Hard of hearing. Normal bladder movements. Currently, resting comfortably and hemodynamically stable. Admission Exam Per Admitting Provider GENERAL: The patient is old and frail, not in acute distress. VITAL SIGNS: Temperature 36.5, pulse 115, respiratory rate 20, blood pressure 113/78, oxygen 93% on room air. HEENT: No pallor. Pupils equal, round, reactive to light. Oral mucosa dry. NECK: No JVD, no neck masses, no carotid bruits. CARDIOVASCULAR: S1, S2 heard, regular rate and rhythm. Tachycardia. No murmurs. RESPIRATORY SYSTEM: Normal AP diameter. Mild bilateral rhonchi heard. No wheezing, no crackles. ABDOMEN: Soft, bowel sounds sluggish, nontender. No distention, no guarding, no rigidity. No inguinal hernia palpable at this time. CENTRAL NERVOUS SYSTEM: Cranial nerves II-XII grossly intact. Nonfocal. Hard of hearing. Moves extremities. EXTREMITIES: No edema, no erythema. Principal Diagnosis Left inguinal hernia, small bowel obstruction Bronchiectasis, COPD, aspiration pneumonia Discharge Exam Gen- elderly male, laying in bed, in NAD, hard of hearing, AAO x 3, NAD Head- NCAT, EOMI, Anicteric Sclera Neck- Supple, No JVD Lungs- somewhat diminished breath sounds kiana. at bases, no wheezing, no crackles, + very mild rhonchi noted Chest- irregularly irregular, nl S1, nl S2, no murmur Abdomen- Soft, Bowel Sounds Present, Non Distended, s/p L inguinal hernia repair, dressings applied c/d/i, mildly tender to palpation at surgical site. No Rigidity, No Guarding Musculoskeletal- Full Range of Motion Bilaterally Extremities- No Cyanosis, No Clubbing, No Edema Neuro- alert and oriented, answering questions appropriately, hard of hearing, speech fluent, no facial asymmetry, moves extremities spontaneously Psych-Normal Mood Discharge Data Allergies Allergy/AdvReac Type Severity Reaction Status Date / Time aspirin Allergy Severe TIGHTNESS Verified 07/22/20 19:42 IN CHEST NSAIDS (Non-Steroidal Allergy Severe TIGHTNESS Verified 07/22/20 19:42 Anti-Inflamma IN THE CHEST rofecoxib Allergy Severe TIGHTNESS Verified 07/22/20 19:42 IN CHEST ibuprofen Allergy Intermediate Asthma Verified 07/22/20 19:42 Symptoms Consultations 07/22/20 18:23 ED Decision to Admit Stat 07/22/20 19:46 Consult General Surgery Routine 07/22/20 19:48 Consult Case Management - Discharge Planning Routine 07/25/20 09:19 Consult Cardiology Routine 07/25/20 09:23 Consult Pulmonology Routine Procedures Performed Operation Date: 07/26/20 14:30 Actual Procedures p Left Open Inguinal Hernia with Mesh Under Sedation and Local(Left) - Olegario Bush MD Ordered Studies 07/22/20 16:28 CT abd pelvis wo con Stat IMPRESSION: 1. Small bowel obstruction with the transition point likely located within the bowel containing left inguinal hernia. There is also twisting of the mid mesenteric vessels which could represent an internal hernia resulting in the small bowel obstruction. However, this is considered less likely. 2. Small focal area of consolidation within the right lower lobe with a few opacified right lower lobe bronchi. This raises the possibility of aspiration pneumonia. 3. Additional chronic findings as described in full report. Hospital Course (1) History of MAC infection: (2) MARU on CPAP: (3) Chronic atrial fibrillation: (4) Incarcerated inguinal hernia: (5) SBO (small bowel obstruction): (6) COPD (chronic obstructive pulmonary disease) case management patient: (7) GERD (gastroesophageal reflux disease): (8) PMR (polymyalgia rheumatica): (9) Pacemaker: (10) BPH (benign prostatic hypertrophy): (11) CKD (chronic kidney disease) stage 3, GFR 30-59 ml/min: ASSESSMENT AND PLAN: This is an 89 y/o male who presents with abdominal pain and found to have small- bowel obstruction. 1. Abdominal pain, small-bowel obstruction, question of incarcerated inguinal hernia but later it was reducible, surgery consulted, now s/p Left inguinal hernia repair 07/26/2020. Pt tolerated procedure well. Chronic constipation Pt has hx of chronic constipation, on bowel regimen chronically Cont. bowel regimen and cont. to closely monitor Pt had a BM on 07/25 after using laxatives. (Mag Citrate) . Small BM again on 07/28, and also today 07/30. Cardiology and Pulmonary medicine consulted for pre-op eval. Per pulmonary: There is no absolute contraindication from pulmonary perspective for the patient to have surgery. Given the history of MARU would recommend BiPAP/CPAP post extubation. Continue with flutter valve along with hypertonic saline nebulized. Per cardiology: restarted Plavix 07/27, cont. verapamil. Hypotension Pt hypotensive AM 07/28, also using 2-3L of O2 on recheck at bedside pt satting 90-92% on RA, BP 90/60s then SBP high 70s, 500cc NSS bolus ordered Pt alert and oriented but reported feeling drowsy Reports he refused valve resp. treatment bc it makes him cough and he has pain in sugical site w/ coughing, encourage to cont. resp. regimen and ambulation Cont. to closely monitor, transferred to PCU ABG, CXR, CBC, CMP, lactate obtained, overall unremarkable, except mild pulm. vasc. congestion Clinically pt much improved now, BM improved and pt no longer drowsy, feels back to his normal 2. Possible aspiration pneumonia. Concern for poss. UTI on admission. Continue with Unasyn. Follow the cultures. Urine cultx - mixed marisabel, likely skin organism, therefore not likely UTI 3. 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 The patient is on verapamil. Not on anticoagulation secondary to recurrent spontaneous hematomas. on Plavix. Will continue to monitor. 4. History of TIA. On Plavix. 5. BPH. On finasteride. 6. Asthma. Continue home inhalers and nebs. 7. Sleep apnea, on CPAP. 8. Chronic kidney disease stage III, creatinine 1.03. followed the labs. Mild hypokalemia, repleted and monitored 9. Gastroesophageal reflux disease: On Protonix. 10. History of polymyalgia rheumatica. 11. Hypothyroidism. Continue Synthroid. 12. Constipation. Stool softeners. Disposition: Home health arranged. Total Time Total Time Spent Total Time Spent (In Minutes): 40 Total Time Includes: Examination of the Patient, Discharge Planning and Medication Reconciliation Discharge Plan Discharge Items Patient Disposition: Home - Home Health Services Reason For Visit: SMALL BOWEL OBSTRUCTION Discharge Diagnosis: Left inguinal hernia, small bowel obstruction Bronchiectasis, COPD, aspiration pneumonia Activity: Per Instructions section Non-emergency contact: Primary Care Provider and Surgeon Call non-emergency contact if: you have any medication questions and your symptoms worsen Follow-up/Referrals: Dionte Banda DO [Primary Care Provider] - (Date & Time 08/01/2020 9:20 AM Provider Dionte Banda DO Department [facility] ) Diet: Regular Addtl Attending Provider Instructions: Follow-up with primary care doctor, appointment was scheduled for you for August 01. Home health was arranged for you by our case management. You should also follow-up with general surgeon, Dr. Bush, please see his contact information below. Addtl Ciaio Counter Molder Provider Instructions: General surgery, Dr. Bush Keep the dressing for 4 days, you can take a shower on 07/31/2020, follow up with Dr. Bush in 2 weeks, please call [phone] to schedule an appointment. Pending Studies at Discharge: No Stand-Alone Forms: My Neotropix, Smoking Cessation Medications and DC Order Prescriptions: New guaifenesin [Mucinex] 600 mg Tablet Extended Release 12hr 600 mg PO Q12 7 Days Qty: 14 RF: 0 Continued Symbicort 160-4.5 mcg/actuation HFA aerosol inhaler 2 puffs INH BID Qty: 10.2 RF: 2 levalbuterol tartrate [Xopenex HFA] 45 mcg/actuation HFA aerosol inhaler 2 puff Inhalation Q8H PRN (Reason: Wheezing) Qty: 15 RF: 5 ipratropium bromide 0.02 % solution See Rx Instructions .ROUTE .COMPLEX Qty: 300 RF: 5 pantoprazole 40 mg tablet,delayed release (DR/EC) 40 mg PO BID Qty: 60 RF: 5 alfuzosin 10 mg tablet extended release 24 hr 10 mg PO HS RF: 0 montelukast [Singulair] 10 mg Tablet 10 mg PO HS RF: 0 multivitamin [Multiple Vitamins] Tablet 1 tab PO QAM RF: 0 finasteride 5 mg Tablet 5 mg PO HS RF: 0 clopidogrel [Plavix] 75 mg Tablet 75 mg PO QAM RF: 0 Calcium 600 + D(3) 600 mg calcium- 200 unit Capsule 1 tab PO QAM RF: 0 loratadine 10 mg Tablet 10 mg PO QAM RF: 0 levothyroxine 50 mcg tablet 50 mcg PO QAM RF: 0 docusate sodium 100 mg Capsule 100 mg PO BID RF: 0 verapamil 240 mg tablet extended release 240 mg PO HS RF: 0 diclofenac sodium 1 % gel 2 g TOPICAL QID PRN (Reason: Pain) RF: 0 azithromycin [Zithromax Z-Kwan] 250 mg tablet See Rx Instructions .ROUTE .COMPLEX RF: 0 prednisone 20 mg tablet See Rx Instructions .ROUTE .COMPLEX RF: 0 sodium chloride [Pulmosal] 7 % solution for nebulization 4 ml INHALATION TID RF: 0 Trulance 3 mg Tablet 3 mg PO DAILY RF: 0 levalbuterol HCl 1.25 mg/0.5 mL solution for nebulization 1.25 mg INH TID PRN (Reason: Shortness Of Breath Or Wheezing) RF: 0 glucosamine-chondroitin [Osteo Bi-Flex] 250-200 mg Tablet 2 tab PO QAM RF: 0 Discharge Orders: Discharge Order (Routine); Ordered 07/30/20 Ordered By: Yung Maher Admission Data Admit Date/Time: 07/22/20 19:46 Attending Provider: Yung Maher Admit Provider: Arianna Reynaga Primary Care Provider: Dionte Banda. Other Providers: Janusz Mcnamara ; [facility] ; Arianna Reynaga ; Phi Patterson ; Melissa Ray ; Bev De Dios ; Ottoniel Comer ; Danny Crooks ; Luz Maria De La Cruz ; Letty Desai ; Mayo Araya Jr ; Olegario Bush ; Dharmesh Moon ; [address] ; Mann Talamantes ; Nahid Yanes ; Mynor Souza ; Dashawn Zhu ; Danny Cronin ; Phi Fabian ; Margaret Fierro ; Tabatha Adams ; Quinn Haro ; Loretta Casey
== END 2020-07-30 13:42 | disposition home health service (06) | DRG 350 ==
LOC: ED 16:20 → 2N 19:46 → SUATTDRO 19:46 → 2N 20:55 → 2S 07-28 14:20